=== PATIENT | female | born 1950 | race Caucasian/White ===

== ENCOUNTER → 2017-01-25 15:48 | Outpatient (CLI) | payer MEDICARE, SELFPAY | PROVIDERS: Visit Provider Family Medicine | DX: R69 Illness, unspecified (principal) | CPT/HCPCS: 82140 ==

== ENCOUNTER → 2017-09-22 12:42 | Outpatient (CLI) | payer MEDICARE, OTHER, SELFPAY ==
--- NOTE | 2017-09-23 05:57 | PFTCOMP_ITS ---
COMPLETE PULMONARY FUNCTION TEST INTERPRETATION Brief HPI: Patient is a 67 year old female, currently under the care of myself, who presents to [facility] for complete pulmonary function tests secondary to diagnosis of COPD. Respiratory therapist reports good effort and reproducible results, but difficulty secondary to coughing. Interpretation: Forced expiration spirometry shows a moderately-severe large airways obstructive ventilatory defect with an FEV1 of 52 % predicted. There is no significant bronchodilator response by ATS criteria. Spirograms are of good quality and plateau slowly, indicating slowly emptying areas of the lungs. The respiratory flow volume loop shows decreased expiratory flow rates at high lung volumes consistent with small airways obstruction. Lung volumes by body plethysmography show a decreased total lung capacity at 4.27 L, 75 % predicted. FRC and RV are elevated out of proportion. Lung volume measurements are consistent with air-trapping. Diffusion capacity by carbon monoxide is decreased at 40 % predicted. The airway resistance is elevated. Compared to previous pulmonary function tests from 02/11/2016, there has been a significant reduction in FEV1 and DLCO. Impression: Irreversible moderately severe mixed ventilatory defect with a symmetric reduction diffusing capacity. There has been worsening compared to previous study.
== END ==
PROVIDERS: Family Provider Family Medicine; PCP Family Medicine; Visit Provider Nurse Practitioner Acute Care
DX: J44.9 Chronic obstructive pulmonary disease, unspecified (principal)
CPT/HCPCS: 94060; 94726; 94729

== ENCOUNTER → 2017-10-06 11:40 | Outpatient (CLI) | payer MEDICARE, OTHER, SELFPAY | PROVIDERS: Family Provider Family Medicine; PCP Family Medicine; Visit Provider Internal Medicine Critical Care Medicine | DX: G47.33 Obstructive sleep apnea (adult) (pediatric) (principal); J44.9 Chronic obstructive pulmonary disease, unspecified | CPT/HCPCS: 94762 ==

== ENCOUNTER 2017-11-14 17:06 | Emergency (ER) | payer MEDICARE, OTHER, SELFPAY ==
[2017-11-14 17:07] VITALS: BP 110/66; PULSE 86; RESP 16; TEMP 36.8; O2SAT 98; BMI 19.6
--- NOTE | 2017-11-14 17:26 | ED.DCSUM_ITS ---
- ER Visit Summary Date of Service: 11/14/17 Chief Complaint: Headache History of Present Illness: The patient is a 67 F resents to the emergency department with headache. Patient has a history of migraine. She states normally, since the past few years, she does not get them very frequently. In fact, last when she had was just about a year ago. She describes this is her normal headache. She is prescription pressure behind her right eye into the back of her head. It is associated with photophobia and nausea. She denies any trauma. She denies any carbon monoxide exposure. She has tried some Tylenol at home with little relief. She is not on any migraine abortive medications at home. She denies any change in speech, change in vision, trouble with balance, or any other systemic symptoms. Physical Examination: Well-appearing patient is in no acute distress. Head is normocephalic, atraumatic. Pupils equal round reactive, extraocular muscles intact. There is no temporal artery tenderness. There is no vesicular rash. Neck supple. Kernig's and Brudzinski's are negative. Heart regular rate and rhythm. Lungs clear, chest nontender. Abdomen soft, nontender, nondistended. Neuro exam displays no focal or lateralizing deficit. 2+ symmetric lower extremity reflexes. No clonus. No ataxia or gait abnormality. Test Results: [] Emergency Department Course and Treatment: She presents with her normal migraine. She is not meningitic. Is not encephalopathic. She was treated with dihydroergotamine, Toradol, and Phenergan. Within an hour, she has had total resolution of her headache. At this time, I do feel that she is safe for outpatient therapy. The patient will be discharged home. Treatment Plan: [] Disposition: Charge Impression:. Migraine headache-resolved This note was generated with [employer] software. It may contain incorrect words, spelling, and punctuation that were not noted in review of the chart prior to signing ED Disposition - Plan for ED Patient: Disposition: Home or Assisted Living Chief Complaint: Headache Instructions: ED Headache Migraine Referrals: Vin Baca DO [Primary Care Provider] -
[2017-11-14] MEDS: 0.9% Normal Saline 1,000 ML 999 ML IV (17:59)
[2017-11-14] MEDS: Ketorolac 15 MG/ML Vial IV (17:59)
[2017-11-14] MEDS: proMETHazine 25 MG/ML Syringe 12.5 MG IV (17:59)
[2017-11-14] MEDS: Dihydroergotamine 1 MG/ML Ampul IM (17:59)
[2017-11-14 19:01] VITALS: PULSE 96; RESP 14; O2SAT 98
== END 2017-11-14 19:03 | disposition home or self-care (01) ==
LOC: ED 18:02
PROVIDERS: Emergency Provider Emergency Medicine; Family Provider Family Medicine; PCP Family Medicine
DX: G43.909 Migraine, unspecified, not intractable, without status migrainosus (principal); J44.9 Chronic obstructive pulmonary disease, unspecified; I10 Essential (primary) hypertension; E07.9 Disorder of thyroid, unspecified; Z87.891 Personal history of nicotine dependence; Z79.899 Other long term (current) drug therapy
CPT/HCPCS: 96374; 96375; 99282; J7030; A4216; J1110

== ENCOUNTER 2017-11-15 17:54 | Emergency (ER) | payer MEDICARE, OTHER, SELFPAY ==
[2017-11-15 17:54] VITALS: BP 117/60; PULSE 76; RESP 16; TEMP 36.9; O2SAT 98; BMI 19.6
[2017-11-15] MEDS: 0.9% Normal Saline 1,000 ML 999 ML IV (19:38)
[2017-11-15] MEDS: Ketorolac 30 MG/ML Syringe 15 MG IV (19:39)
[2017-11-15] MEDS: proMETHazine 25 MG/ML Syringe 12.5 MG IV (19:40)
[2017-11-15] MEDS: Dihydroergotamine 1 MG/ML Ampul IM (19:42)
[2017-11-15 20:36] VITALS: BP 158/80; PULSE 56; RESP 16; O2SAT 99
--- NOTE | 2017-11-15 20:43 | ED.VISSUMM ---
- ER Visit Summary Date of Service: 11/15/17 Chief Complaint: Headache History of Present Illness: The patient is a [address] Baca. She reports that she has a headache that began yesterday. Is gradually gotten worse. Is a throbbing pains 10 at 10 severity. Is worsened by light or movement. She reports that it was transient relieved by rizatriptan. She has had nausea without vomiting. She denies any recent trauma to her head. No fever or chills. Patient reports that she was seen in the emergency department yesterday was treated Toradol, DHE, and Phenergan. Had complete resolution of her headache. However, it returned this morning is gradually worsened throughout the day. Physical Examination: Vitals: Stable. Afebrile. General: Well-nourished and well-developed. Head: Normocephalic atraumatic. Neck: Supple, no lymphadenopathy. No JVD. Nontender. Cardiovascular: Regular rate and rhythm. No murmurs. Respiratory: No respiratory distress. Clear to auscultation bilaterally. Abdominal: Soft, nontender, nondistended, normal bowel sounds. No guarding, rebound, or peritoneal signs. Back: Nontender. Extremities: Nontender, no edema. Skin: Normal color, no rash. Neurologic: Alert and oriented ?3. Cranial nerves II through XII are intact. Normal strength and sensation. Psych: Normal affect. Emergency Department Course and Treatment: Patient was given DHE, Toradol, Phenergan, and dexamethasone. On repeat exam she reports her headache is completely resolved. Treatment Plan: Patient will be discharged instructions to follow-up with neurologist in 1-2 days if not improving. Disposition: To home in improved and stable condition. Impression: 1. Migraine headache. This note was generated with [employer] dictation software. It may contain incorrect words, spelling, and punctuation that were not noted in review of the chart prior to signing ED Disposition - Plan for ED Patient: Disposition: Home or Assisted Living Chief Complaint: Headache Instructions: ED Headache Migraine Referrals: Vin Baca DO [Primary Care Provider] - 1-2 Days if not improving
[2017-11-15 21:22] VITALS: BP 132/70; PULSE 68; RESP 14; O2SAT 99
== END 2017-11-15 22:41 | disposition home or self-care (01) ==
PROVIDERS: Emergency Provider Emergency Medicine; Family Provider Family Medicine; PCP Family Medicine
DX: G43.909 Migraine, unspecified, not intractable, without status migrainosus (principal); J44.9 Chronic obstructive pulmonary disease, unspecified; Z79.899 Other long term (current) drug therapy; Z86.73 Personal history of transient ischemic attack (TIA), and cerebral infarction without residual deficits; Z72.0 Tobacco use
CPT/HCPCS: 96361; 96372; 96374; 96375; 99282; J7030; A4216; J1110

== ENCOUNTER 2017-12-14 17:12 | Emergency (ER) | payer MEDICARE, OTHER, SELFPAY ==
[2017-12-14 17:12] VITALS: BP 124/58; PULSE 90; RESP 18; TEMP 36.7; O2SAT 98; BMI 20.3
--- NOTE | 2017-12-14 17:49 | ED.DCSUM_ITS ---
- ER Visit Summary Date of Service: 12/14/17 Chief Complaint: Headache History of Present Illness: The patient is a 67 F presenting with headache. She states it started gradually. Similar to her previous migraine headaches. She has nausea with no vomiting. No fever. She saw her neurologist yesterday and had her Depakote level checked. She was doing well at that time. Headache started today. She states that typically Toradol, DHE 45, Phenergan improve her symptoms. Physical Examination: Vitals are stable. Patient is afebrile. Alert no acute distress. HEENT exam is unremarkable. Neck is supple. No meningismus Lungs are clear and equal bilaterally. Heart is regular rate and rhythm. Abdomen is soft nontender nondistended. Extremities are unremarkable. Skin is warm and dry. No focal neurologic deficit. Remainder of exam is unremarkable. Emergency Department Course and Treatment: Patient is given Toradol, Phenergan, DHE 45. On reevaluation, patient is feeling much improved. She is requesting to go home. Advised to follow-up with her neurologist. Advised return to the ED for worsening complaints. Disposition: Discharge home Impression: Migraine headache This note was generated with [employer] dictation software. It may contain incorrect words, spelling, and punctuation that were not noted in review of the chart prior to signing ED Disposition - Plan for ED Patient: Chief Complaint: Headache Instructions: ED Headache Migraine Referrals: Vin Baca DO [Primary Care Provider] -
[2017-12-14] MEDS: 0.9% Normal Saline 1,000 ML 999 ML IV (18:12)
[2017-12-14] MEDS: Dihydroergotamine 1 MG/ML Ampul IV (18:12)
[2017-12-14] MEDS: Ketorolac 30 MG/ML Syringe IV (18:12)
[2017-12-14] MEDS: proMETHazine 25 MG/ML Syringe 6.25 MG IV (18:12)
--- NOTE | 2017-12-14 18:51 | ED.DEP ---
ED Disposition - Plan for ED Patient: Chief Complaint: Headache Instructions: ED Headache Migraine Referrals: Vin Baca DO [Primary Care Provider] -
[2017-12-14 18:59] VITALS: BP 105/73; PULSE 64; RESP 16; O2SAT 98
--- NOTE | 2017-12-14 19:10 | NURSING ---
RIGHT CHEST PORT DISCONTINUED AND FLUSHED PRIOR WITH 5 CC'S HEPARIN AND 10 CC'S NS. CLEAN GAUZE APPLIED TO SITE.
== END 2017-12-14 19:11 | disposition home or self-care (01) ==
LOC: ED 17:32
PROVIDERS: Emergency Provider Emergency Medicine; Family Provider Family Medicine; PCP Family Medicine
DX: G43.909 Migraine, unspecified, not intractable, without status migrainosus (principal); J44.9 Chronic obstructive pulmonary disease, unspecified; Z86.73 Personal history of transient ischemic attack (TIA), and cerebral infarction without residual deficits; Z79.899 Other long term (current) drug therapy; Z72.0 Tobacco use
CPT/HCPCS: 96361; 96374; 96375; 99282; J7030; A4216; J1110

== ENCOUNTER 2018-02-05 17:19 | Emergency (ER) | payer MEDICARE, OTHER, SELFPAY ==
[2018-02-05 17:21] VITALS: BP 139/89; PULSE 110; RESP 16; TEMP 36.6; BMI 21.3
[2018-02-05] MEDS: proMETHazine 25 MG/ML Syringe 12.5 MG IV (18:35)
[2018-02-05] MEDS: 0.9% Normal Saline 1,000 ML 999 ML IV (18:35)
[2018-02-05] MEDS: Ketorolac 30 MG/ML Syringe IV (18:35)
[2018-02-05] MEDS: Dihydroergotamine 1 MG/ML Ampul IV (19:22)
[2018-02-05 19:41] VITALS: PULSE 113; RESP 16
[2018-02-05] MEDS: Ipratropium/Albuterol Sulfate 3 ML AMPUL.NEB INHALATION (19:41)
--- NOTE | 2018-02-05 20:02 | ED.VISSUMM ---
- ER Visit Summary Date of Service: 02/05/18 Chief Complaint: Migraine History of Present Illness: The patient is a 68 F who presents with a migraine. She has a history of multiple similar prior episodes. She complains of a left-sided temporal headache which she currently rates as 7 out of 10. This is typical in character and location to her previous headaches. She also complains of nausea. It began about 5 hours prior to presentation and gradually worsened over the course of a couple of hours. Physical Examination: Afebrile vitals notable for heart rate 110 otherwise normal Heart regular rhythm tachycardia Scattered wheezing Abdomen soft Alert oriented no focal or lateralizing neurological deficits Test Results: Not indicated Emergency Department Course and Treatment: Patient states that normally she has had resolution of symptoms with Toradol Phenergan and DHE. I was somewhat concerned given her prior history of stroke with DHE. However the patient states that she has had this multiple times since her stroke without any adverse events. Patient was treated with Toradol Phenergan and DHE with complete resolution of symptoms and states I feel great on reevaluation. Patient discharged. Treatment Plan: [] Disposition: Discharge Impression: Migraine This note was generated with [employer] dictation software. It may contain incorrect words, spelling, and punctuation that were not noted in review of the chart prior to signing ED Disposition - Plan for ED Patient: Chief Complaint: Headache Referrals: Vin Baca DO [Primary Care Provider] -
--- NOTE | 2018-02-05 20:05 | ED.DEP ---
ED Disposition - Plan for ED Patient: Chief Complaint: Headache Instructions: ED Headache Migraine Referrals: Vin Baca DO [Primary Care Provider] -
[2018-02-05 20:22] VITALS: BP 155/75; PULSE 73; RESP 16; RESP 166; O2SAT 97
== END 2018-02-05 20:23 | disposition home or self-care (01) ==
LOC: ED 18:33
PROVIDERS: Emergency Provider Emergency Medicine; Family Provider Family Medicine; PCP Family Medicine
DX: G43.909 Migraine, unspecified, not intractable, without status migrainosus (principal); J44.9 Chronic obstructive pulmonary disease, unspecified; J84.10 Pulmonary fibrosis, unspecified; I10 Essential (primary) hypertension; E03.9 Hypothyroidism, unspecified; Z86.73 Personal history of transient ischemic attack (TIA), and cerebral infarction without residual deficits; Z79.899 Other long term (current) drug therapy; Z72.0 Tobacco use
CPT/HCPCS: 36591; 94640; 96361; 96374; 96375; 99282; J7030; A4216; J1110

== ENCOUNTER 2018-03-30 17:52 | Emergency (ER) | payer MEDICARE, OTHER, SELFPAY ==
[2018-03-30 17:54] VITALS: BP 115/66; PULSE 101; RESP 16; TEMP 36.2; O2SAT 97; BMI 19.9
--- NOTE | 2018-03-30 18:09 | ED.VISSUMM ---
- ER Visit Summary Date of Service: 03/30/18 Chief Complaint: Migraine History of Present Illness: The patient is a 68 F with multiple comorbidities who presents to the emergency department with migraine and nausea. The patient has a history of chronic migraine. She states she gets flares almost once a month. She states that this is her normal migraine. It started gradually behind her right eye with photophobia and nausea. She has not vomited. She states this is a normal headache that she gets. The patient does have multiple comorbidities including prior stroke, press syndrome, and pulmonary fibrosis. She denies any trauma. She denies any visual change. She is otherwise been in her normal state of health. Physical Examination: Well-appearing patient is in no acute distress. Head is normocephalic, atraumatic. Pupils equal round reactive, extraocular muscles intact. There is no temporal artery tenderness. There is no vesicular rash. Neck supple. Kernig's and Brudzinski's are negative. Heart regular rate and rhythm. Lungs clear, chest nontender. Abdomen soft, nontender, nondistended. Neuro exam displays no focal or lateralizing deficit. 2+ symmetric lower extremity reflexes. No clonus. No ataxia or gait abnormality. Test Results: [] Emergency Department Course and Treatment: The patient presents with a normal migraine. She is not meningitic. Is not encephalopathic. She has a normal neurologic examination. The patient was given DHE, Toradol, and Phenergan. Within 30 minutes, she had total resolution of her headache. Her exam continues to be unremarkable. At this time, I do feel that she is safe for outpatient therapy. The patient will be discharged home. Treatment Plan: [] Disposition: Discharge Impression: Migraine This note was generated with [employer] dictation software. It may contain incorrect words, spelling, and punctuation that were not noted in review of the chart prior to signing ED Disposition - Plan for ED Patient: Chief Complaint: Headache Instructions: ED Headache Migraine Referrals: Vin Baca DO [Primary Care Provider] -
[2018-03-30] MEDS: Dihydroergotamine 1 MG/ML Ampul IV (18:25)
[2018-03-30] MEDS: 0.9% Normal Saline 1,000 ML 1000 ML IV (18:25)
[2018-03-30] MEDS: Ketorolac 15 MG/ML Vial IV (18:25)
[2018-03-30] MEDS: proMETHazine 25 MG/ML Syringe 12.5 MG IV (18:25)
== END 2018-03-30 20:03 | disposition home or self-care (01) ==
LOC: ED 18:09
PROVIDERS: Emergency Provider Emergency Medicine; Family Provider Family Medicine; PCP Family Medicine
DX: G43.909 Migraine, unspecified, not intractable, without status migrainosus (principal); I67.83 Posterior reversible encephalopathy syndrome; J84.10 Pulmonary fibrosis, unspecified; J44.9 Chronic obstructive pulmonary disease, unspecified; Z79.899 Other long term (current) drug therapy; Z72.0 Tobacco use; Z86.73 Personal history of transient ischemic attack (TIA), and cerebral infarction without residual deficits
CPT/HCPCS: 96361; 96374; 96375; 99281; J7030; A4216; J1110

== ENCOUNTER 2018-05-16 16:58 | Emergency (ER) | payer MEDICARE, OTHER, SELFPAY ==
[2018-05-16 16:58] VITALS: BP 158/89; PULSE 86; RESP 16; TEMP 36.7; O2SAT 98; BMI 22.8
--- NOTE | 2018-05-16 17:26 | CT_ITS ---
STUDY: CT BRAIN WITHOUT CONTRAST REASON FOR EXAM: Female, 68 years old. Confusion. RADIATION DOSAGE (If Supplied By Facility): CTDIvol = ( 44.99 ) mGy, DLP = ( 796.11 ) mGycm TECHNIQUE: Transaxial CT imaging of the brain was performed without administration of intravenous contrast material. Individualized dose optimization techniques were used for this CT. COMPARISON: 10/26/2016 FINDINGS: There are stable postsurgical changes from a left mastoidectomy. Again noted is a left-sided cochlear implant. The streak artifact from the hardware limits evaluation. There is an old right parietal infarct which is new when compared with the prior exam. There is no acute bleed or infarct identified. There are chronic ischemic and atrophic changes. The ventricles are normal in configuration. There is no hydrocephalus. The visualized paranasal sinuses are clear. There is no skull fracture. CT/Brain/Head without Contrast IMPRESSION: Study limited by streak artifact due to the patient's left cochlear implant. Old right parietal infarct which is new when compared with 10/26/2016. No acute intracranial abnormality identified. Stable chronic ischemic changes. Electronically Signed: Erik Howard, at 18:37 EST Tel , Service support ,
--- NOTE | 2018-05-16 17:27 | RAD_ITS ---
STUDY: X-RAY CHEST REASON FOR EXAM: Female, 68 years old. Dizziness TECHNIQUE: Frontal and lateral views of the chest COMPARISON: 10/24/2016 FINDINGS: There is a right-sided port with its tip in the superior vena cava. The lungs are clear. There are no pleural effusions. There is no pneumothorax. The heart is normal in size. The visualized osseous structures are within normal limits. RAD/Chest PA and Lateral IMPRESSION: No acute thoracic pathology. Electronically Signed: Erik Howard, at 19:03 EST Tel , Service support ,
--- NOTE | 2018-05-16 17:28 | EKG12_ITS ---
Test Reason : CONFUSION Blood Pressure : / mmHG Vent. Rate : 080 BPM Atrial Rate : 080 BPM P-R Int : 140 ms QRS Dur : 076 ms QT Int : 374 ms P-R-T Axes : 063 023 061 degrees QTc Int : 431 ms Normal sinus rhythm Normal ECG Confirmed by SUNIL YEUNG, MORTEZA ([id number]), web content editor BENTLEY VARELA ([id number]) on 05/19/2018 2:19:07 PM Referred By: KINGSLEY Confirmed By:MORTEZA BARBER MD
[2018-05-16 17:40] LABS: Base Excess 0 mmol/L (-2 to +2); Bicarbonate 23.4 mmol/L (22-26); Blood Gas Specimen Type ART; O2 Delivery Device Room Air; PO2 76 mmHG (75-100); SITE L Brachial; SO2 96 % (95-99); Time Given 1736; Total Carbon Dioxide 24 mmol/L; pCO2 32.9 mmHg (35-45); pH 7.46 (7.35-7.45)
[2018-05-16 18:01] LABS: Absolute Lymphocyte Count 1.24 X10^3/ul (0.83-4.51); Absolute Neutrophil Count 5.8 X10^3/uL (2.0-7.7); Basophil# 0.03 X10^3/uL; Basophil% 0.4 % (0-1); Eosinophil# 0.15 X10^3/uL; Eosinophils% 1.9 % (0-5); Hemoglobin 12.4 g/dl (12.0-15.0); Lymphocyte # 1.24 X10^3/ul (4.0); Lymphocyte % 16.1 % (19-41); Mean Corp Hgb Conc 32.6 g/gl (32-36); Mean Corpuscular Hgb 31.5 pg (27.0-32.0); Mean Corpuscular Volume 96.4 fL (81-99); Mean Platelet Vol. 9.5 fl (6.2-12.0); Monocyte# 0.39 X10^3/uL; Monocyte% 5.1 % (0-10); Neutrophil # 5.84 X10^3/uL (2.7-7.7); Neutrophil % 75.7 % (47-70); Platelet Count 201 K/mm3 (150-450); RBC Distribution Width CV 13.7 % (11.6-14.6); RBC Distribution Width SD 48.8 fl (35.1-43.9); Red Blood Count 3.94 M/mm3 (4.2-5.4); White Blood Count 7.7 K/mm3 (4.4-11.0)
[2018-05-16 18:05] LABS: POSITIVE COUNT NO; POSITIVE DIFFERENTIAL NO; POSITIVE MORPHOLOGY NO
[2018-05-16 18:19] LABS: ALB/GLOB Ratio 0.9 RATIO (0.9-2.4); AST(SGOT) 11 U/L (15-37); Alanine Aminotransfer ALT/SGPT 15 U/L (13-56); Albumin, Serum 3.2 g/dL (3.2-5.0); Alkaline Phosphatase 84 U/L (45-117); Anion Gap 7 (5-15); BUN 11 mg/dL (7-18); BUN/Creat Ratio 15.7 RATIO (10-20); Calcium,Total 7.9 mg/dL (8.5-10.1); Chloride 102 mmol/L (98-107); EST Glomerular Filtration Rate 89 mL/min (>60); Est Glom Filt Rate - Afr Amer 108 mL/min (>60); Estimated Creatinine Clearance 55.82 ml/min; Globulin 3.6 g/dL (2.2-4.2); Glucose 74 mg/dL (74-106); Potassium 3.9 mmol/L (3.5-5.1); Protein, Total 6.8 g/dL (6.4-8.2); Sodium Level 132 mmol/L (136-145)
[2018-05-16 18:58] VITALS: BP 156/73; PULSE 87; RESP 24; O2SAT 98
[2018-05-16 19:16] LABS: Bacteria 0 SEEN /hpf (None Seen); Mucous, Urine 0 SEEN /hpf (<or=2+); Red Blood Cells-Urine 0 SEEN /hpf (0-5); White Blood Cells 0 SEEN /hpf (0-5)
[2018-05-16 19:22] LABS: Color, Urine Yellow (Yellow); Glucose, Dipstick Normal (Normal); Ketone-Dipstick Negative (Negative); Leukocyte Esterase-Dipstick Negative /ul (Negative); Nitrite-Dipstick Negative (Negative); Occult Blood-Urine Negative /ul (Negative); Protein-Dipstick Negative (Negative); Urine Bilirubin Dipstick Negative (Negative); Urine Clarity Clear (Clear); Urine Urobilinogen Normal (Normal)
[2018-05-16 19:33] LABS: Squamous Epithelial Cells - UA 0-5 SEEN /hpf (5-10)
[2018-05-16 20:10] VITALS: BP 147/79; PULSE 77; RESP 24; O2SAT 97
--- NOTE | 2018-05-16 20:23 | HP.PCM_ITS ---
History of Present Illness The patient is a 68 year old F [] Past Medical History Past Medical History (Chronic Problems): Chronic Problems (Last Reviewed 04/13/18 @ 06:39 by Afua Friedman) Tobacco abuse (Chronic) RENNY (obstructive sleep apnea) (Chronic) Mild diastolic dysfunction (Chronic) Depression (Chronic) Restless leg (Chronic) HTN (hypertension) (Chronic) Presbycusis of both ears (Chronic) Adrenal insufficiency (Chronic) COPD (chronic obstructive pulmonary disease) (Chronic) Hypothyroidism (Chronic) Pulmonary fibrosis (Chronic) Medical History: Medical History (Last Reviewed 04/13/18 @ 06:39 by Afua Friedman) Encephalopathy (Acute) G93.40 Leukocytosis (Acute) D72.829 Hypotension (Acute) I95.9 Decreased level of consciousness (Acute) R40.4 Respiratory failure with hypercapnia (Acute) J96.92 MRSA pneumonia (Acute) J15.212 Acute delirium (Acute) R41.0 Headache (Acute) R51 RENNY (obstructive sleep apnea) (Chronic) G47.33 Mild diastolic dysfunction (Chronic) I51.9 Depression (Chronic) F32.9 Restless leg (Chronic) HTN (hypertension) (Chronic) I10 Presbycusis of both ears (Chronic) H91.13 Adrenal insufficiency (Chronic) E27.40 COPD (chronic obstructive pulmonary disease) (Chronic) J44.9 Hypothyroidism (Chronic) E03.9 Pulmonary fibrosis (Chronic) J84.10 COPD with acute exacerbation J44.1 Gallstones K80.20 Septic shock A41.9, R65.21 UTI (urinary tract infection) N39.0 Anxiety F41.9 Bronchitis J40 Carpal tunnel syndrome G56.00 Cataract H26.9 Chronic back pain M54.9, G89.29 Migraine G43.909 Osteopenia M85.80 Solitary pulmonary nodule R91.1 Stage 2 moderate COPD by GOLD classification J44.9 Tobacco abuse Z72.0 Acute respiratory failure J96.00 H/O: hysterectomy Z98.890, Z90.710 Hypersomnia G47.10 Allergies Sulfa (Sulfonamide Antibiotics) Adverse Reaction (Intermediate, Verified 05/16/18 17:01) Other - Messes with blood counts prochlorperazine edisylate [From Compazine] Adverse Reaction (Mild, Verified 05/16/18 17:01) Other - Restless legs prochlorperazine maleate [From Compazine] Adverse Reaction (Mild, Verified 05/16/18 17:01) Other - Restless legs Home Medications: Ambulatory Orders Medication Instructions Recorded Pantoprazole Sodium [Protonix] 40 mg PO DAILY 08/23/16 albuterol sulfate HFA 90 2 puff INHALATION Q4H PRN g 06/16/17 mcg/actuation aerosol inhaler ipratropium-albuterol 0.5 mg-3 3 ml INHALATION Q4H PRN ml 06/16/17 mg(2.5 mg base)/3 mL nebulization soln budesonide-formoterol HFA 160 2 inh INHALATION Q12H #10.2 g 09/28/17 mcg-4.5 mcg/actuation aerosol inhaler Cyclobenzaprine [Flexeril] 10 mg PO TID PRN PRN 12/14/17 Divalproex Sodium [Depakote] 250 mg PO DAILY 12/14/17 Risperidone [Risperdal] 0.5 mg PO DAILY 12/14/17 Risperidone [Risperdal] 1 mg PO QHS 12/14/17 Ropinirole HCl [Requip] 0.5 mg PO QHS 12/14/17 Sertraline HCl [Zoloft] 50 mg PO DAILY 12/14/17 melatonin 10 mg capsule 20 mg PO QHS 12/29/17 Rizatriptan Benzoate [Maxalt] 10 mg PO .X1 PRN PRN 02/05/18 tiotropium bromide 2.5 2 puff INHALATION DAILY #4 g 04/13/18 mcg/actuation mist for inhalation Aspirin/Acetaminophen/Caffeine 2 tab PO PRN PRN 05/16/18 [Excedrin Migraine Caplet] Divalproex Sodium 500 mg PO DAILY 05/16/18 Levothyroxine Sodium [Synthroid] 150 mcg PO DAILY 05/16/18 Multivit-Min/Iron/Folic/Lutein 1 tab PO DAILY 05/16/18 [Centrum Silver Women Tablet] Naproxen Sodium [Aleve] 220 mg PO PRN PRN 05/16/18 Surgical History: Surgical History (Last Reviewed 04/13/18 @ 06:39 by Afua Friedman) Cochlear implant in place Z96.21 Dr Andrade 2014 H/O adenoidectomy Z98.890, Z90.89 History of cataract surgery Z98.49 History of cholecystectomy Z98.890, Z90.49 History of lung biopsy Z98.890 Hx of appendectomy Z98.890, Z90.49 Hx of left knee surgery Z98.890 joint lipoma removal vocal nodules removed Surgical History: appendectomy, cholecystectomy, hysterectomy, total hip arthroplasty - Right, - - thyroidectomy and BL intraocular lens implants,cochear implant Psychiatric History: Anxiety, Depression, - - Suspected narcotic dependence. HUMAN RESOURCE ADVISER History: No pertinent HUMAN RESOURCE ADVISER history Smoking Status: Current every day smoker - *Family History Maternal Family History: Family History (Last Reviewed 04/13/18 @ 06:39 by Afua Friedman) Mother Hypertension CVA (cerebral vascular accident) Father CVA (cerebral vascular accident) Hypertension Sister Colon cancer Grandfather Hypertension Heart disease History Items: Heart Disease, Stroke Paternal Family History: Family History (Last Reviewed 04/13/18 @ 06:39 by Afua Friedman) Mother Hypertension CVA (cerebral vascular accident) Father CVA (cerebral vascular accident) Hypertension Sister Colon cancer Grandfather Hypertension Heart disease History Items: Heart Disease, Stroke Sibling Family History: Family History (Last Reviewed 04/13/18 @ 06:39 by Afua Friedman) Mother Hypertension CVA (cerebral vascular accident) Father CVA (cerebral vascular accident) Hypertension Sister Colon cancer Grandfather Hypertension Heart disease History Items: - - sister with colon cancer - Physical Exam Vital Signs Temp Pulse Resp BP Pulse Ox 98.1 F 77 24 H 147/79 H 97 05/16/18 16:58 05/16/18 20:10 05/16/18 20:10 05/16/18 20:10 05/16/18 20:10 Oxygen Delivery Method Room Air Weight: 68.3 kg Body Mass Index (BMI) 22.8 Finger Stick Blood Glucose 108 Laboratory Tests Past 24 Hrs 05/16/18 05/16/18 05/16/18 17:37 17:45 17:45 WBC 7.7 RBC 3.94 L Hgb 12.4 Hct 38.0 MCV 96.4 MCH 31.5 MCHC 32.6 RDW 13.7 RDW Differential 48.8 H Plt Count 201 MPV 9.5 Immature Gran % (Auto) 0.800 Neut % (Auto) 75.7 H Lymph % (Auto) 16.1 L Lamb % (Auto) 5.1 Eos % (Auto) 1.9 Baso % (Auto) 0.4 Absolute Neuts (auto) 5.8 Absolute Lymphs (auto) 1.24 Total Counted Not Reportable Specimen Type ART Sample Site L Brachial pH 7.46 H Bicarbonate Actual 23.4 POC Total CO2 24 Base Excess 0 O2 Saturation 96 ABG pCO2 32.9 L ABG pO2 76 O2 Delivery Device Room Air Blood Gas Notified Whom ED MD Blood Gas Notified Time 1736 Sodium 132 L Potassium 3.9 Chloride 102 Carbon Dioxide 23.0 Anion Gap 7 BUN 11 Creatinine 0.70 Estim Creat Clear Calc 55.82 Est GFR (MDRD) Af Amer 108 Est GFR (MDRD) Non-Af 89 BUN/Creatinine Ratio 15.7 Glucose 74 Calcium 7.9 L Total Bilirubin 0.20 AST 11 L ALT 15 Alkaline Phosphatase 84 Troponin I < 0.015 Total Protein 6.8 Albumin 3.2 Globulin 3.6 Albumin/Globulin Ratio 0.9 Urine Color Urine Clarity Urine pH Ur Specific [place] Urine Protein Urine Glucose (UA) Urine Ketones Urine Occult Blood Urine Nitrite Urine Bilirubin Urine Urobilinogen Ur Leukocyte Esterase Urine RBC Urine WBC Ur Squamous Epith Cells Urine Bacteria Urine Mucus 05/16/18 19:10 WBC RBC Hgb Hct MCV MCH MCHC RDW RDW Differential Plt Count MPV Immature Gran % (Auto) Neut % (Auto) Lymph % (Auto) Lamb % (Auto) Eos % (Auto) Baso % (Auto) Absolute Neuts (auto) Absolute Lymphs (auto) Total Counted Specimen Type Sample Site pH Bicarbonate Actual POC Total CO2 Base Excess O2 Saturation ABG pCO2 ABG pO2 O2 Delivery Device Blood Gas Notified Whom Blood Gas Notified Time Sodium Potassium Chloride Carbon Dioxide Anion Gap BUN Creatinine Estim Creat Clear Calc Est GFR (MDRD) Af Amer Est GFR (MDRD) Non-Af BUN/Creatinine Ratio Glucose Calcium Total Bilirubin AST ALT Alkaline Phosphatase Troponin I Total Protein Albumin Globulin Albumin/Globulin Ratio Urine Color Yellow Urine Clarity Clear Urine pH 8.0 Ur Specific [place] 1.010 Urine Protein Negative Urine Glucose (UA) Normal Urine Ketones Negative Urine Occult Blood Negative Urine Nitrite Negative Urine Bilirubin Negative Urine Urobilinogen Normal Ur Leukocyte Esterase Negative Urine RBC 0 SEEN Urine WBC 0 SEEN Ur Squamous Epith Cells 0-5 SEEN Urine Bacteria 0 SEEN Urine Mucus 0 SEEN Assessment/Plan All Active Problems (Last Reviewed 04/13/18 @ 06:39 by Afua Friedman) Encephalopathy (Acute) Leukocytosis (Acute) Hypotension (Acute) Decreased level of consciousness (Acute) Respiratory failure with hypercapnia (Acute) MRSA pneumonia (Acute) Acute delirium (Acute) Headache (Acute) Gram-negative pneumonia (Resolved) Septic shock (Resolved) Tobacco user (Resolved)
[2018-05-16 21:04] VITALS: BP 123/86; PULSE 76; RESP 22; O2SAT 98
--- NOTE | 2018-05-16 21:05 | ED.VISSUMM ---
- ER Visit Summary Date of Service: 05/16/18 Chief Complaint: Confusion History of Present Illness: The patient is a 68 F who lives at home with family. Patient has COPD and pulmonary fibrosis and she has had prior stroke. Primary care physician is Dr. Baca. Corporate Administrator is Dr. Diallo. Patient was discharged from [facility] earlier this year. She has been at home. states she was recently hospitalized in [place] for hypercarbia. On Tuesday she fell and she fell again today. notes confusion. He notes that she basically can get to the wheelchair and he has to help her. She does not really ambulate on her own. During one fall she did hit her head and has numerous bruising of her extremities. She continues to smoke. Physical Examination: Afebrile vital signs are stable Gen: Well-nourished well-developed Head: Normocephalic atraumatic Eyes: Perrl EOMI ENT: TMs clear no rhinorrhea moist mucous membranes Neck: Supple no lymphadenopathy no JVD nontender CVS: Regular rate rhythm no murmurs normal S1-S2 Respiratory: No distress faint expiratory wheeze chest nontender Abdomen: Soft nontender nondistended normal bowel sounds no masses Back: Nontender Extremity: Nontender no edema Skin: Normal color no rash Neuro: alert orientated ?3 CN II-XII intact normal strength sensation reflexes the patient does seem confused often this speaking and mixing up events/timelines and people. Psych: Normal affect normal mood Test Results: CBC CMP showed a sodium of 132. Troponin negative. ABG showed a normal pH at 7.46. PCO2 of 32.9. Chest x-ray and head CT were negative. EKG sinus at a rate of 80. Urinalysis shows no infection Emergency Department Course and Treatment: The patient results were discussed with her and her . He states that if she is to be admitted to observation he would rather take her home and bring her back if she gets worse. This is a financial decision because he states he still pain off the last observational stay. I did speak with our hospitalist and had him evaluate he does confirm that this would be a observational stay tonight. Therefore family wishes to take her home. Impression: 1. Altered mental status This note was generated with [employer] software. It may contain incorrect words, spelling, and punctuation that were not noted in review of the chart prior to signing ED Disposition - Plan for ED Patient: Disposition: Against Medical Advice Chief Complaint: Dizziness Instructions: ED Confusion Referrals: Vin Baca DO [Primary Care Provider] - As soon as possible
--- OUTSIDE RECORDS SUMMARY | 2018-07-12 09:35 | XMS RPT_ITS ---
:1950 Author Organization OHIP Support Name Relationship Address Phone EVGENY HERNANDEZ Unavailable [address] + [place] [address] R Unavailable Unavailable Unavailable LAX, EVGENY Unavailable [address] + [place] [address] R Unavailable Unavailable Unavailable LAX, EVGENY Unavailable [address] + [place] [address] R Unavailable Unavailable Unavailable LAX, EVGENY Unavailable [address] + [place] [address] LAX, EVGENY Unavailable [address] + [place] [address] LAX, EVGENY Unavailable [address] + [place] [address] R Unavailable Unavailable Unavailable LAX, EVGENY Unavailable [address] + [place] [address] LAX, EVGENY Unavailable [address] + [place] [address] LAX, EVGENY Unavailable [address] + [place] [address] R Unavailable Unavailable Unavailable LAX, EVGENY Unavailable [address] + [place] [address] R Unavailable Unavailable Unavailable LAX, EVGENY Unavailable [address] + [place] [address] LAX, EVGENY Unavailable [address] + [place] [address] LAX, EVGENY Unavailable [address] + [place] [address] LAX, EVGENY Unavailable [address] + [place] [address] LAX, EVGENY Unavailable [address] + [place] [address] LAX, EVGENY Unavailable [address] + [place] [address] LAX, EVGENY Unavailable [address] + [place] [address] R Unavailable Unavailable Unavailable LAX, EVGENY Unavailable [address] + [place] [address] R Unavailable Unavailable Unavailable LAX, EVGENY Unavailable [address] + [place] [address] LAX, EVGENY Unavailable [address] + [place] [address] LAX, EVGENY Unavailable [address] + [place] [address] LAX, EVGENY Unavailable [address] + [place] [address] LAX, EVGENY Unavailable [address] + [place] [address] LAX, EVGENY Unavailable [address] + [place] [address] LAX, EVGENY Unavailable [address] [phone] [place] [address] R Unavailable Unavailable Unavailable LAX, EVGENY Unavailable [address] [phone] [place] [address] R Unavailable Unavailable Unavailable LAX, EVGENY Unavailable [address] + [place] [address] LAX, EVGENY Unavailable [address] + [place] [address] LAX, EVGENY Unavailable [address] + [place] [address] LAX, EVGENY Unavailable [address] + [place] [address] LAX, EVGENY Unavailable [address] + [place] [address] LAX, EVGENY Unavailable [address] + [place] [address] LAX, EVGENY Unavailable [address] [phone] [place] [address] R Unavailable Unavailable Unavailable LAX, EVGENY Unavailable [address] [phone] [place] [address] R Unavailable Unavailable Unavailable LAX, EVGENY Unavailable [address] + [place] [address] LAX, EVGENY Unavailable [address] + [place] [address] LAX, EVGENY Unavailable [address] [phone] [place] [address] R Unavailable Unavailable Unavailable LAX, EVGENY Unavailable [address] [phone] [place] [address] R Unavailable Unavailable Unavailable LAX, EVGENY Unavailable [address] + [place] [address] LAX, EVGENY Unavailable [address] + [place] [address] LAX, EVGENY Unavailable [address] + [place] [address] LAX, AMBAR Unavailable [address] + [place] [address] R Unavailable Unavailable Unavailable Care Team Providers Name Role Phone DONOVAN AVILA MD Attending Unavailable PHUONG DO, VIN D Primary Care Unavailable DONOVAN AVILA MD Attending Unavailable PHUONG DO, VIN D Primary Care Unavailable DONOVAN AVILA MD Attending Unavailable PHUONG DO, VIN D Primary Care Unavailable CARLY GARRIDO MD Attending Unavailable PHUONG DO, VIN D Primary Care Unavailable PHUONG DO, VIN D Primary Care Unavailable LISA FRANCE MD. KARLI Gaspar Admitting Unavailable LISA FRANCE MD. KARLI Gaspar Attending Unavailable PHUONG DO, VIN D Primary Care Unavailable EDGAR FRANCE, DR. Antonieta LOTT Attending Unavailable VIN NOE MD Attending Unavailable PHUONG DO, VIN D Primary Care Unavailable VIN NOE MD Attending Unavailable PHUONG DO, VIN D Primary Care Unavailable DONOVAN AVILA MD Attending Unavailable PHUONG DO, VIN D Primary Care Unavailable DONOVAN AVILA MD Attending Unavailable PHUONG DO, VIN D Primary Care Unavailable DONOVAN AVILA MD Attending Unavailable PHUONG DO, VIN D Primary Care Unavailable PHUONG DO, VIN D Primary Care Unavailable LISA FRANCE MD. KARLI Gaspar Admitting Unavailable LISA FRANCE MD. KARLI Gaspar Attending Unavailable HELGA YEUNG, AMBAR Gaspar Consulting Unavailable LISA FRANCE MD. KARLI Gaspar Consulting Unavailable HELGA YEUNG, AMBAR Gaspar Admitting Unavailable HELGA YEUNG, AMBAR Gaspar Attending Unavailable PHUONG DO, VIN D Primary Care Unavailable PHUONG DO, VIN D Consulting Unavailable ANNE MARIE EDDY, DR. LUIS F Martin Consulting Unavailable YOVANY YEUNG, ELVIE Consulting Unavailable VINI YEUNG, GLADIS Consulting Unavailable HELAG YEUNG, AMBAR Gaspar Consulting Unavailable Ana, Faye Attending Unavailable Happy, Vin Referring Unavailable Ana, Faye Attending Unavailable Perez, Faye Referring Unavailable Phuong, Vin Primary Care Unavailable Gerry Diallo Attending Unavailable Happy, Vin Referring Unavailable Happy, Vin Primary Care Unavailable Gerry Diallo Attending Unavailable Ana, Faye Referring Unavailable Gerry Diallo Attending Unavailable Happy, Vin Primary Care Unavailable Phuong, Vin Primary Care Unavailable Josh Bermudez Attending Unavailable Happy, Vin Primary Care Unavailable Marin Kraft Attending Unavailable DOCTOR, OUT OF TOWN Attending Unavailable Phuong, Vin Primary Care Unavailable Kassie Guzmán Attending Unavailable Faye Perez Attending Unavailable Happy, Vin Referring Unavailable Phuong, Vin Primary Care Unavailable Phuong, Vin Primary Care Unavailable Harshad Connors Attending Unavailable Happy, Vin Attending Unavailable Phuong, Vin Referring Unavailable Happy, Vin Primary Care Unavailable Phuong, Vin Primary Care Unavailable Josh Bermudez Attending Unavailable Gerry Diallo Attending Unavailable Phuong, Vin Referring Unavailable Phuong, Vin Primary Care Unavailable Chato Allen Attending Unavailable PROBLEMS PROBLEMS DATE TYPE CONDITION / CODE ATTENDING STATUS SOURCE 04/13/2018 Unknown J44.9 - Chronic Yoel, Gerry [facility] disease, Repository unspecified / J44.9(ICD-10) 04/13/2018 Unknown J96.22 - Acute Yoel, Gerry [facility] failure with Repository hypercapnia / J96.22(ICD-10) 10/06/2017 Unknown G47.33 - Yoel, Gerry [facility] ap[facility] (pediatric) / Repository G47.33(ICD-10) PROCEDURES PROCEDURES No Procedure Records FoundRESULTS RESULTS 12 LEAD ELECTROCARDIOGRAM Observed: 05/19/2018 Status: F Source: GERRY 2:19 PM [facility] RE[facility] Cardiovascular Services [address] [place] [address] 12 Lead EKG 05/16/18 1748 MR#: [id number] Acct: [id number] Name: FRANCISCO HERNANDEZ Rep #: [id number] : 1950 68 From: Aristides Cohen MD Attending Dr: Status: DEP ER Ordering Dr: Chato Allen DO Date: 05/16/18 Location: ED Sex: F C Admitted: Test Reason : CONFUSION Blood Pressure : / mmHG Vent. Rate : 080 BPM Atrial Rate : 080 BPM P-R Int : 140 ms QRS Dur : 076 ms QT Int : 374 ms P-R-T Axes : 063 023 061 degrees QTc Int : 431 ms Normal sinus rhythm Normal ECG Confirmed by ARISTIDES COHEN MD ([id number]), editorial director BENTLEY VARELA ([id number]) on 05/19/2018 2:19:07 PM Referred By: KINGSLEY Confirmed By:ARISTIDES COHEN MD 05/19/18 1419 Date Aristides Cohen MD CC: Vin Baca DO; Chato Allen DO Signed EMERGENCY DEPARTMENT Observed: 05/18/2018 Status: F Source: GERRY SUMMARY 8:16 AM [facility] Medical Records Department [address] [place] [address] Emergency Department Summary 05/16/18 2105 MR#: [id number] Acct: [id number] Name: FRANCISCO HERNANDEZ Rep #: [id number] : 1950 68 From: Chato Allen DO PCP: Vin Baca DO Status: DEP ER - ER Visit Summary Date of Service: 05/16/18 Chief Complaint: Confusion History of Present Illness: The patient is a 68 F who lives at home with family. Patient has COPD and pulmonary fibrosis and she has had prior stroke. Primary care physician is Dr. Baca. Parts Picker is Dr. Diallo. Patient was discharged from [facility] earlier this year. She has been at home. states she was recently hospitalized in [place] for hypercarbia. On Tuesday she fell and she fell again today. notes confusion. He notes that she basically can get to the wheelchair and he has to help her. She does not really ambulate on her own. During one fall she did hit her head and has numerous bruising of her extremities. She continues to smoke. Physical Examination: Afebrile vital signs are stable Gen: Well-nourished well-developed Head: Normocephalic atraumatic Eyes: Perrl EOMI ENT: TMs clear no rhinorrhea moist mucous membranes Neck: Supple no lymphadenopathy no JVD nontender CVS: Regular rate rhythm no murmurs normal S1-S2 Respiratory: No distress faint expiratory wheeze chest nontender Abdomen: Soft nontender nondistended normal bowel sounds no masses Back: Nontender Extremity: Nontender no edema Skin: Normal color no rash Neuro: alert orientated 3 CN II-XII intact normal strength sensation reflexes the patient does seem confused often this speaking and mixing up events/timelines and people. Psych: Normal affect normal mood Test Results: CBC CMP showed a sodium of 132. Troponin negative. ABG showed a normal pH at 7.46. PCO2 of 32.9. Chest x-ray and head CT were negative. EKG sinus at a rate of 80. Urinalysis shows no infection Emergency Department Course and Treatment: The patient results were discussed with her and her . He states that if she is to be admitted to observation he would rather take her home and bring her back if she gets worse. This is a financial decision because he states he still pain off the last observational stay. I did speak with our hospitalist and had him evaluate he does confirm that this would be a observational stay tonight. Therefore family wishes to take her home. Impression: 1. Altered mental status This note was generated with [employer] dictation software. It may contain incorrect words, spelling, and punctuation that were not noted in review of the chart prior to signing ED Disposition - Plan for ED Patient: Disposition: Against Medical Advice Chief Complaint: Dizziness Instructions: ED Confusion Referrals: Vin Baca, DO [Primary Care Provider] - As soon as possible What to do if you have Problems For any increased pain, shortness of breath, bleeding, nausea or vomiting, chest pain, or any unexpected problems, contact your Primary Care Provider. Call [facility] ([phone]) or report to the closest Emergency Room. Call 911 if necessary. 05/18/18 0816 <Electronically signed by Chato Allen DO> Date Chato Allen DO Cosigner Signature (If Indicated): Date CC: Vin Baca DO URINALYSIS, COMPLETE Collected: 05/16/2018 Status: F Source: [place] 7:10 PM [facility]POS[facility] Order Comment: Order Date: 05/16/18 How was Urine Obtained? CLEAN CATCH TYPE CODE TESTS RESULT OUT OF RANGE REFERENCE UNITS LAB L400.3000 Yellow COLOR Normal Yellow LAB L400.3050 Clear Normal CLARITY Clear LAB L400.3200 Normal mg/dl Normal GLUCOSE, UR Normal LAB L400.3300 Negative mg/dL Normal BILIRUBIN URINE Negative LAB L400.3400 Negative mg/dl Normal KETONE UR Negative LAB L400.3465 1.002-1.030 Normal SP.GR. DIPSTX 1.010 LAB L400.3550 5.0 - 8.0 pH UR Normal 8.0 LAB L400.3600 Negative mg/dl PROT Normal DIPSTX Negative LAB L400.3700 Normal mg/dl Normal UROBILI Normal LAB L400.3750 Negative Normal NITRITE UR Negative LAB L400.3780 Negative /ul Normal OCCULT BLOOD-UR Negative LAB L400.3800 Negative /ul LEUK Normal ESTERASE Negative LAB L400.4050 0-5 /hpf WBC 0 Normal SEEN LAB L400.4100 0-5 /hpf 0 Normal RBC-UA SEEN LAB L400.4150 5-10 /hpf SQUAM Normal EPI 0-5 SEEN LAB L400.4300 None Seen /hpf 0 Normal BACTERIA SEEN LAB L400.4350 <or=2+ /hpf 0 Normal MUCUS, URINE SEEN Performed By: #### L400.0001 #### [facility] [address] [place], [place], [id number] CBC W/DIFF, AUTOMATED Collected: 05/16/2018 Status: F Source: [place] 5:45 PM [facility] TYPE CODE TESTS RESULT OUT OF RANGE REFERENCE UNITS LAB L100.1000 4.4-11.0 K/mm3 Normal WBC 7.7 LAB L100.1200 4.2-5.4 M/mm3 Low RBC 3.94 LAB L100.1300 12.0-15.0 g/dl Normal HGB 12.4 LAB L100.1400 37-47 % Normal HCT 38.0 LAB L100.1500 81-99 fL Normal MCV 96.4 LAB L100.1600 27.0-32.0 pg Normal MCH 31.5 LAB L100.1700 32-36 g/gl Normal MCHC 32.6 LAB L100.1810 11.6-14.6 % Normal RDW CV 13.7 LAB L100.1820 35.1-43.9 fl High RDW SD 48.8 LAB L100.1900 150-450 K/mm3 Normal PLT 201 LAB L100.2000 6.2-12.0 fl Normal MPV 9.5 LAB L100.2100 47-70 % High NEUT% 75.7 LAB L100.2200 19-41 % Low LY% 16.1 LAB L100.2300 0-10 % Normal MONO% 5.1 LAB L100.2400 0-5 % Normal EO% 1.9 LAB L100.2500 0-1 % Normal BASO% 0.4 LAB L100.2550 0.0-0.9 % Normal IM GRAN % 0.800 Result Comment: IG% - Immature Granulocytes (promyelocytes, myelocytes and metamyelocytes) > 1% indicates that a LEFT SHIFT is Present. LAB L100.2620 2.0-7.7 X10 3/uL Normal Absolute Neut 5.8 LAB L100.2720 0.83-4.51 X10 3/ul Normal Absolute Lymph 1.24 Performed By: #### L100.0100 #### [facility] [address] [place], [place], [address] COMPREHENSIVE METABOLIC Collected: 05/16/2018 Status: F Source: DI[facility]OND NICOLE 5:45 PM [facility] TYPE CODE TESTS RESULT OUT OF RANGE REFERENCE UNITS LAB L501.0100 74-106 mg/dL Normal GLU 74 Result Comment: Please note revised GLUCOSE reference range effective 2017. LAB L501.1000 7-18 mg/dL Normal BUN 11 LAB L501.1100 0.55-1.02 mg/dL Normal CREAT,SERUM 0.70 Result Comment: The validity of the calculated GFR AND GFRAA in patients over 70 years has not been determined. Clinical correlation is essential. LAB L501.1110 >60 mL/min Normal EST GFR 89 Result Comment: Non- GFR Calc LAB L501.1115 >60 mL/min Normal EST GFR - AA 108 Result Comment: GFR Calc LAB L501.1255 ml/min Normal Estimated CRCL 55.82 LAB L501.1300 10-20 RATIO Normal BUN/CRE 15.7 LAB L501.1500 6.4-8. g/dL Normal 2 T PROT 6.8 LAB L501.1800 3.2-5. g/dL Normal 0 ALB 3.2 LAB L501.1950 2.2-4. g/dL Normal 2 GLOB 3.6 LAB L501.2000 0.9-2. RATIO Normal 4 A/G 0.9 LAB L501.2200 8.5-10 mg/dL Low .1 CA 7.9 LAB L501.4100 15-37 U/L Low AST 11 LAB L501.4305 45-117 U/L Normal ALK P 84 LAB L501.4405 13-56 U/L Normal ALT 15 LAB L501.4600 0.20-1 mg/dL Normal .00 T BILI 0.20 LAB L501.5300 136-14 mmol/L Low 5 NA 132 LAB L501.5600 3.5-5. mmol/L Normal 1 K 3.9 LAB L501.5900 98-107 mmol/L Normal CL 102 LAB L501.6100 21.0-3 mmol/L Normal 2.0 CO2 23.0 LAB L501.6200 5-15 Normal GAP 7 Performed By: #### L500.4050, L501.4010 #### [facility] [address] [place], [address] TROPONIN-I Collected: 05/16/2018 Status: F Source: GERRY 5:45 PM [facility] TYPE CODE TESTS RESULT OUT OF RANGE REFERENCE UNITS LAB L501.4010 <0.045 ng/mL Normal < 0.015 TROPONIN-I Result Comment: TROPONIN-I EXPECTED VALUES <0.045 Negative 0.045 - 0.590 Consistent with Cardiac Damage > OR = 0.600 Critical Value Not every elevated troponin is indicative of ND. These values should be used with clinical judgement in examining the patient's clinical picture for diagnosis. To establish a diagnosis of ND versus myocardial injury, there must be a demonstrated rise and/or fall in the troponin values, in addition to ischemic symptoms, EKG changes, new regional wall motion abnormality, and/or angiographical evidence. PLEASE NOTE: REFERENCE RANGES EDITED 17 Performed By: #### L500.4050, L501.4010 #### [facility] [address] [place], [address] BLOOD GASES BY CPS Collected: 05/16/2018 Status: F Source: GERRY 5:37 PM [facility] TYPE CODE TESTS RESULT OUT OF RANGE REFERENCE UNITS LAB L9000.9990 Normal BLD GAS TYPE ART LAB L9001.1000 L Normal SITE Brachial LAB L9001.1050 O2 Normal Delivery Dev Room Air LAB L9001.1104 ED Normal Results To MD LAB L9001.1105 Normal Time Given 1736 LAB L9001.1110 7.35-7.45 High pH - I-STAT 7.46 LAB L9001.1210 35-45 mmHg Low pCO2 - ISTAT 32.9 LAB L9001.1310 75-100 mmHG 76 Normal PO2 I-STAT LAB L9001.2300 22-26 mmol/L Normal HCO3 ISTAT 23.4 LAB L9001.2400 -2 to +2 mmol/L BE 0 Normal ISTAT LAB L9001.2415 mmol/L 24 Normal TOTAL CO2 ISTAT LAB L9001.2425 95-99 % 96 Normal SO2 ISTAT Performed By: #### L9000.0800 #### [facility] Point of Care [address] [place], [place] [address] BRAIN/HEAD WITHOUT Observed: 05/16/2018 Status: F Source: GERRY CONTRAST 5:28 PM [facility] [place] [address] Brain/Head without Contrast MR#: [id number] Acct: [id number] Name: FRANCISCO HERNANDEZ Rep #: [id number] : 1950 F 68 From: Erik Howard MD PCP: Vin Baca DO Status: REG ER Study: Brain/Head without Contrast Date of Exam: 05/16/18 Exam# [id number] Ordering Dr: Chato Allen DO STUDY: CT BRAIN WITHOUT CONTRAST REASON FOR EXAM: Female, 68 years old. Confusion. RADIATION DOSAGE (If Supplied By Facility): CTDIvol = ( 44.99 ) mGy, DLP = ( 796.11 ) mGycm TECHNIQUE: Transaxial CT imaging of the brain was performed without administration of intravenous contrast material. Individualized dose optimization techniques were used for this CT. COMPARISON: 10/26/2016 FINDINGS: There are stable postsurgical changes from a left mastoidectomy. Again noted is a left-sided cochlear implant. The streak artifact from the hardware limits evaluation. There is an old right parietal infarct which is new when compared with the prior exam. There is no acute bleed or infarct identified. There are chronic ischemic and atrophic changes. The ventricles are normal in configuration. There is no hydrocephalus. The visualized paranasal sinuses are clear. There is no skull fracture. CT/Brain/Head without Contrast IMPRESSION: Study limited by streak artifact due to the patient's left cochlear implant. Old right parietal infarct which is new when compared with 10/26/2016. No acute intracranial abnormality identified. Stable chronic ischemic changes. Electronically Signed: Erik Howard, at 18:37 EST Tel , Service support , CC: Vin Baca DO; Chato Allen DO Salesperson [employer] Furnishings: Signed CHEST PA AND LATERAL Observed: 05/16/2018 Status: F Source: DIAOMND 5:28 PM [facility] Imaging Services [address] [place] [address] Chest PA and Lateral MR#: [id number] Acct: [id number] Name: FRANCISCO HERNANDEZ Rep #: [id number] : 1950 F 68 From: Erik Howard MD PCP: iVn Baca DO Status: REG ER Study: Chest PA and Lateral Date of Exam: 05/16/18 Exam# [id number] Ordering Dr: Chato Allen DO STUDY: X-RAY CHEST REASON FOR EXAM: Female, 68 years old. Dizziness TECHNIQUE: Frontal and lateral views of the chest COMPARISON: 10/24/2016 FINDINGS: There is a right-sided port with its tip in the superior vena cava. The lungs are clear. There are no pleural effusions. There is no pneumothorax. The heart is normal in size. The visualized osseous structures are within normal limits. RAD/Chest PA and Lateral IMPRESSION: No acute thoracic pathology. Electronically Signed: Erik Howard, at 19:03 EST Tel , Service support , CC: Vin Baca DO; Chato Allen DO Salesperson [employer] Furn[employer]: Signed PULMONARY VISIT REPORT Observed: 04/13/2018 Status: F Source: DIAMOND 10:36 AM [facility] REPOS[facility] [address] [place] [address] OFFICE VISIT Date of Service: 04/13/18 MR#: [id number] Acct: [id number] Name: FRANCISCO HERNANDEZ Rep #: [id number] : 1950 Provider: Gerry Diallo MD Age/Sex: 68/F Location: [facility] Status: Signed Assessment AND Plan Problems 1. Acute on chronic respiratory failure with hypercapnia J96.22 2. RENNY (obstructive sleep apnea) G47.33 3. Tobacco abuse Z72.0 4. Pulmonary fibrosis J84.10 5. Chronic obstructive pulmonary disease, unspecified COPD type J44.9 Plan Patient with recent hospitalization secondary to CO2 narcosis. Unclear if this is related to medication depression of respiratory function or noncompliance with Symbicort therapy. Will add Spiriva to complete triple therapy. Patient was personally instructed on the use of the Respimat inhaler. Patient has not tolerated dry powder inhalers in the past. Stressed to the patient the importance of using CPAP overnight. If patient continues to have complications, transition to noninvasive ventilator may be necessary at the next visit. Continue to work on smoking cessation. Complications of Chantix therapy and warning signs were reviewed with the patient. Signs and symptoms of exacerbation and sick policy were reviewed and patient voiced understanding. Add Spiriva. Encourage compliance with CPAP therapy. Possible initiation of noninvasive ventilator at next visit if not improving. Orders Orders: Medications New: tiotropium bromide 2.5 mcg/actuation (Spiriva R2 puffs Inhalation DAILY 4 grams 5RF J44.9 espimat) Discontinued: Plan Detail Follow Up 3 Months ([facility]) HPI 3 M FU: Chief Complaint: Recent hospitalization Details: Patient is a 68-year-old female, currently under the care of Dr. Baca, who presents for evaluation secondary to recent hospitalization. Since last visit, patient has been hospitalized at [facility] with details described below. Patient feels that she is somewhat improved compared to discharge, but feels that she still has significant issues with confusion, especially overnight. Patient was initiated on Chantix therapy, but continues to smoke. Patient is no longer on prednisone therapy. Patient states I feel shaky inside. Patient states that this is not related to the use of inhalers. Patient has been compliant with Symbicort therapy. Patient reports that prior to her hospitalization she did have an episode of thrush secondary to not gargling. Patient initiated gargling with resolution. No nystatin was required. Patient also admits that she tends to forget her evening dose of Symbicort. Patient reports that she has been using her CPAP therapy, but patient's reports that she tends to tear it off after an hour or 2 of sleep. He has not been placing her back on secondary to her staying up after its replaced. Patient does report being fatigued during the day, but is unclear if this is related to her medications. Patient is currently receiving physical therapy 3 times weekly. Patient has been weak and requiring a wheelchair to get around. Patient did have a fall yesterday when trying to use a walker. Patient estimates that she has been using DuoNeb every other day. Documentation and imaging reviewed with the patient 22 pages of documentation from [facility] were reviewed. Patient was admitted there from 03/09/2018 until 03/13/2018 secondary to COPD exacerbation and hypercapnic respiratory failure. Patient did have an abdominal ultrasound showing no significant findings and a chest x-ray showing no infiltrates. CT scan of the head showed a 4 x 2 cm focus of cystic encephalomalacia with cochlear implant. Patient was reportedly treated with BiPAP therapy and mentation improved rapidly. Patient was requested to go to a custodial, but refused and was sent home with family members. Patient was sent home on a prednisone taper HPI Comments Details: Intake Vital Signs04/13/18 Height 5 ft 8 in 04/13/18 Weight: 63.957 kg Intake Visit Reasons: 3 M FU Lamination Technician Required: No Accompanied by: Family / Other Allergies Sulfa (Sulfonamide Antibiotics) Adverse Reaction (Intermediate, Verified 04/13/18 06:40) Other - Messes with blood counts prochlorperazine edisylate [From Compazine] Adverse Reaction (Mild, Verified 04/13/18 06:40) Other - Restless legs prochlorperazine maleate [From Compazine] Adverse Reaction (Mild, Verified 04/13/18 06:40) Other - Restless legs Medications Levothyroxine [Synthroid] 150 mcg PO DAILY 08/23/16 [History Confirmed 04/13/18] Pantoprazole Sodium [Protonix] 40 mg PO DAILY 08/23/16 [History Confirmed 04/13/18] albuterol sulfate HFA 90 mcg/actuation aerosol inhaler 2 puff INHALATION Q4H PRN g 06/16/17 [History Confirmed 04/13/18] ipratropium-albuterol 0.5 mg-3 mg(2.5 mg base)/3 mL nebulization soln 3 ml INHALATION Q4H PRN ml 06/16/17 [History Confirmed 04/13/18] budesonide-formoterol HFA 160 mcg-4.5 mcg/actuation aerosol inhaler 2 inh INHALATION Q12H #10.2 g 09/28/17 [Rx Confirmed 04/13/18] Cyclobenzaprine [Flexeril] 10 mg PO TID PRN PRN 12/14/17 [History Confirmed 04/13/18] Divalproex Sodium [Depakote] 500 mg PO DAILY 12/14/17 [History Confirmed 04/13/18] Risperidone [Risperdal] 0.5 mg PO DAILY 12/14/17 [History Confirmed 04/13/18] Risperidone [Risperdal] 1 mg PO QHS 12/14/17 [History Confirmed 04/13/18] Ropinirole HCl [Requip] 0.5 mg PO QHS 12/14/17 [History Confirmed 04/13/18] Sertraline HCl [Zoloft] 50 mg PO DAILY 12/14/17 [History Confirmed 04/13/18] melatonin 10 mg capsule 10 mg PO HS 12/29/17 [History Confirmed 04/13/18] Divalproex Sodium [Depakote] 750 mg PO QHS 02/05/18 [History Confirmed 04/13/18] Rizatriptan Benzoate [Maxalt] 10 mg PO .X1 PRN PRN 02/05/18 [History Confirmed 04/13/18] tiotropium bromide 2.5 mcg/actuation mist for inhalation 2 puff INHALATION DAILY #4 g 04/13/18 [Rx Confirmed 04/13/18] PFSH Medical History Encephalopathy (Acute) Leukocytosis (Acute) Hypotension (Acute) Decreased level of consciousness (Acute) Respiratory failure with hypercapnia (Acute) MRSA pneumonia (Acute) Acute delirium (Acute) Headache (Acute) RENNY (obstructive sleep apnea) (Chronic) Mild diastolic dysfunction (Chronic) Depression (Chronic) Restless leg (Chronic) HTN (hypertension) (Chronic) Presbycusis of both ears (Chronic) Adrenal insufficiency (Chronic) COPD (chronic obstructive pulmonary disease) (Chronic) Hypothyroidism (Chronic) Pulmonary fibrosis (Chronic) COPD with acute exacerbation (Acute) Gallstones (Acute) Septic shock (Acute) UTI (urinary tract infection) (Acute) Anxiety (Chronic) Bronchitis (Chronic) Carpal tunnel syndrome (Chronic) Cataract (Chronic) Chronic back pain (Chronic) Migraine (Chronic) Osteopenia (Chronic) Solitary pulmonary nodule (Chronic) Stage 2 moderate COPD by GOLD classification (Chronic) Tobacco abuse (Chronic) Acute respiratory failure (Resolved) H/O: hysterectomy (Resolved) Hypersomnia (Resolved) Surgical History Cochlear implant in place (Resolved) H/O adenoidectomy (Resolved) History of cataract surgery (Resolved) History of cholecystectomy (Resolved) History of lung biopsy (Resolved) Hx of appendectomy (Resolved) Hx of left knee surgery (Resolved) lipoma removal (Resolved) vocal nodules removed (Resolved) Family History Mother Hypertension CVA (cerebral vascular accident) Father CVA (cerebral vascular accident) Hypertension Sister Colon cancer Grandfather Hypertension Heart disease Social History Smoking Status: Current every day smoker second hand exposure: No alcohol intake: never substance use type: does not use Review of Systems Const CONSTITUTIONAL: Positive fatigue; negative anorexia, body ache, chills, daytime sleepiness, fever(s), night sweats, oral thrush, stops breathing during sleep, weight loss, sleeping in chair, weight loss, weight gain, frequent colds, seasonal allergies, other, headache(s) or orthopnea EETM Ear Nose Throat Mouth: Positive nasal discharge and hearing normal; negative hoarseness, dry mouth in morning, change in vision, itchy eyes, eye pain, swallowing Difficulty, ear pain, headache(s), mouth pain, nasal congestion, sinus pain, sinus pressure, sore throat, other, hard of hearing, nose bleed or post nasal drip Cardio Cardiovascular: Negative chest pain, chest pain at rest, chest pain with activity, irregular heart rhythm, edema, shortness of breath when lying down, palpitations, other or murmur Resp Respiratory: Positive as per HPI, shortness of breath shortness of breath: Positive with activity, wheezing, cough cough: Positive non-productive and inhalers; negative pain with cough, chest congestion, chest tightness, pain on inspiration, increase use of rescue inhalers, snoring, apnea or other Gastro Gastrointestional: Negative bloody stools, change in appetite, difficulty swallowing, reflux, hematemesis, melena stool, loose stool, constipation or other Genitourinary: Negative blood in urine, nocturia, pain with urination or other Musc Musculoskeletal: Negative body pain, back pain, neck pain or other Skin/Breast Skin/Breast: Negative dry skin, itching, unusual bruising, breast lump, other or rash Neuro Neurological: Positive weakness; negative restless legs, confusion or other Psych Psychocological: Negative abnormal sleep pattern, anxiety, thoughts of hurting self/others, hopelessness or other Lymph Lymphatic: Negative easy bleeding, easy bruising, other or swollen lymph nodes Exam Const Constitutional: Positive conversant, cooperative, in no acute respiratory distress, well developed, well nourished, good hygiene, appears older than stated age and frail appearing; negative dyspenic or wearing supplemental oxygen Head Head: Positive normocephalic and atraumatic; negative cyanosis of lips/distal nose, frontal sinus tenderness or maxillary sinus tenderness Eyes Eye: Positive clear conjunctiva; negative nystagmus, scleral abnormality or cataract present Ears Ear: Positive hearing normal and external ears normal; negative hard of hearing Nose Nose: Positive external nose normal, septum normal and no nasal discharge; negative epistaxis or nasal polyp Mouth Mouth: Positive oral mucosae normal, no lesions, poor dentition and posterior oropharynx is adequate; negative post nasal drip, malodorous breath or oral thrush present Mallampati Score: II: Mallampati Score Neck Neck: Positive normal visual inspection, full ROM and trachea midline; negative lymphadenopathy or JVD Chest Wall Chest: Positive symmetric chest movement and increased A/P diameter; negative crepitus or tenderness Resp lung sounds: Positive diminished and prolonged expiratory time; negative wheezes, rhonchi, rales, use of accessory muscles, wheeze present on forced exhalation or dullness to percussion Cardio Cardiac: Positive regular rate, regular rhythm, S1 normal and S2 normal; negative murmur, rub or gallop GI GI: Positive normal to inspection and normal bowel sounds; negative distended, ascites or epigastric tenderness Genitourinary: Positive deferred Musc Musculoskeletal: Positive kyphosis and in a wheelchair; negative scoliosis Skin Pulmonary Skin Exam: Positive intact and dermal atrophy; negative rash, lesion or ulcers Pulses Pulse: Yes radial pulses present Extremities Extremities: Yes capillary refill normal, Yes clubbing, No cyanosis, No edema, No stasis dermatitis Neuro Neurologic: Yes conversant, Yes no focal neuro deficits, Yes cooperative, Yes normal coordination, Yes understands questions Lymph Lymphatic: No lymphadenopathy Psych Appearance: Positive grossly normal Mental Status: Positive mental status grossly normal Mood: Positive congruent mood Affect: Positive flat Office Procedures Inhaler Training Inhaler Training Procedure performed by: Melony dialloer Training: Yes personally trained on inhaler use, sample provided, expresses understanding, continue to monitor and other ( and daughter also present) Coding Level of Care Code Off vis,est,level 4 Diagnoses Acute on chronic respiratory failure with hypercapnia J96.22 Chronicity: acute on chronic RENNY (obstructive sleep apnea) G47.33 Tobacco abuse Z72.0 Pulmonary fibrosis J84.10 Chronic obstructive pulmonary disease, unspecified COPD type J44.9 COPD type: unspecified COPD 04/13/18 1036 <Electronically signed by Gerry Diallo MD> Date Gerry Diallo MD Cosigner Signature: Date (if applicable) CC: Vin Baca DO EMERGENCY DEPARTMENT Observed: 03/30/2018 Status: F Source: [facility]ERRY SUMMARY 7:09 PM [facility] REPOSITORY [facility] Medical Records Department [address] [place] [address] Emergency Department Summary 03/30/18 1809 MR#: [id number] Acct: [id number] Name: FRANCISCO HERNANDEZ Rep #: [id number] : 1950 68 From: Josh Bermudez MD PCP: Vni Baca DO Status: REG ER - ER Visit Summary Date of Service: 03/30/18 Chief Complaint: Migraine History of Present Illness: The patient is a 68 F with multiple comorbidities who presents to the emergency department with migraine and nausea. The patient has a history of chronic migraine. She states she gets flares almost once a month. She states that this is her normal migraine. It started gradually behind her right eye with photophobia and nausea. She has not vomited. She states this is a normal headache that she gets. The patient does have multiple comorbidities including prior stroke, press syndrome, and pulmonary fibrosis. She denies any trauma. She denies any visual change. She is otherwise been in her normal state of health. Physical Examination: Well-appearing patient is in no acute distress. Head is normocephalic, atraumatic. Pupils equal round reactive, extraocular muscles intact. There is no temporal artery tenderness. There is no vesicular rash. Neck supple. Kernig's and Brudzinski's are negative. Heart regular rate and rhythm. Lungs clear, chest nontender. Abdomen soft, nontender, nondistended. Neuro exam displays no focal or lateralizing deficit. 2+ symmetric lower extremity reflexes. No clonus. No ataxia or gait abnormality. Test Results: [] Emergency Department Course and Treatment: The patient presents with a normal migraine. She is not meningitic. Is not encephalopathic. She has a normal neurologic examination. The patient was given DHE, Toradol, and Phenergan. Within 30 minutes, she had total resolution of her headache. Her exam continues to be unremarkable. At this time, I do feel that she is safe for outpatient therapy. The patient will be discharged home. Treatment Plan: [] Disposition: Discharge Impression: Migraine This note was generated with [employer] dictation software. It may contain incorrect words, spelling, and punctuation that were not noted in review of the chart prior to signing ED Disposition - Plan for ED Patient: Chief Complaint: Headache Instructions: ED Headache Migraine Referrals: Vin Baca, DO [Primary Care Provider] - What to do if you have Problems For any increased pain, shortness of breath, bleeding, nausea or vomiting, chest pain, or any unexpected problems, contact your Primary Care Provider. Call [facility] ([phone]) or report to the closest Emergency Room. Call 911 if necessary. 03/30/18 5919 <Electronically signed by Josh Bermudez MD> Date Josh Bermudez MD Cosigner Signature (If Indicated): Date CC: Vin Baca DO [facility] Collected: 03/12/2018 Status: F Source: [facility] 5:58 AM [facility] REPOSITORY TYPE CODE TESTS RESULT OUT OF REFERENCE UNITS RANGE LAB AMM(LOINC) 25-35 mcmol/l High Ammonia 45 Performed By: #### AMM #### [place] [address] AMM Collected: 03/11/2018 Status: F Source: [facility] 6:30 AM [facility] REPOSITORY TYPE CODE TESTS RESULT OUT OF REFERENCE UNITS RANGE LAB AMM(LOINC) 25-35 mcmol/l High Ammonia 44 Performed By: #### VBG, B12, AMM, CMP, GFR, FOL #### [place] [address] VBG Collected: 03/11/2018 Status: F Source: [facility] 5:47 AM [facility] REPOSITORY TYPE CODE TESTS RESULT OUT OF REFERENCE UNITS RANGE LAB PHV(LOINC) 7.380-7.460 pH Venous 7.395 LAB VPCO2(LOINC 41.0-51.0 mmHg ) pCO2 Abelino 43.2 LAB PO2V(LOINC) 35.0-40.0 mmHg High pO2 Abelino 128.5 LAB HCO3V(LOINC 21.0-30.0 mmol/L ) HCO3 Abelino 25.9 LAB TCO2V(LOINC 70.0-75.0 % ) High TCO2 Venous 98.7 LAB STEPHEN(LOINC) -3.0-3.0 mmol/L BE Venous 0.7 Performed By: #### VBG, B12, AMM, CMP, GFR, FOL #### [place] [address] B12 Collected: 03/11/2018 Status: F Source: [facility] 5:47 AM [facility] REPOSITORY TYPE CODE TESTS RESULT OUT OF REFERENCE UNITS RANGE LAB B12(LOINC) 211-911 pg/mL High Vitamin B12 1380 Lvl Performed By: #### VBG, B12, AMM, CMP, GFR, FOL #### [place] [address] CMP Collected: 03/11/2018 Status: F Source: [facility] 5:47 AM [facility] REPOSITORY TYPE CODE TESTS RESULT OUT OF REFERENCE UNITS RANGE LAB GLU(LOINC) 82-115 mg/dL Low Glucose Level 67 LAB NA(LOINC) 136-145 mEq/L Sodium Level 142 LAB K(LOINC) 3.5-5.0 mEq/L Potassium Level 4.0 LAB CL(LOINC) 98-110 mEq/L Chloride 107 LAB CO2(LOINC) 22-32 mEq/L CO2 27 LAB EBAL(LOINC 4.0-15.0 mEq/L ) Electrolyte Balance 8.0 LAB BUN(LOINC) 8.0-22.0 mg/dL BUN 21.0 LAB CRE(LOINC) 0.50-1.20 mg/dL Creatinine Lvl (s) 0.62 LAB BC(LOINC) 10.0-22.0 ratio High BUN/Creatinine 33.9 Ratio LAB CA(LOINC) 8.4-10.1 mg/dL Low Calcium Lvl 8.3 LAB PROT(LOINC 6.0-8.5 G/dL ) Total Protein 6.5 LAB ALB(LOINC) 3.2-4.8 G/dL Low Albumin Level 2.7 LAB GLB(LOINC) 1.5-3.8 G/dL Globulin 3.8 LAB AG(LOINC) 0.9-1.6 ratio Low A/G Ratio 0.7 LAB BILT(LOINC 0.2-1.2 mg/dL ) Bili Total 0.3 LAB AP(LOINC) 38-126 U/L Alk Phos 107 LAB AST(LOINC) 8-34 U/L AST/SGOT 21 LAB ALT(LOINC) 10-49 U/L ALT/SGPT 43 Performed By: #### VBG, B12, AMM, CMP, GFR, FOL #### [place] [address] .GFR Collected: 03/11/2018 Status: F Source: [facility] 5:47 AM [facility] REPOSITORY TYPE CODE TESTS RESULT OUT OF REFERENCE UNITS RANGE LAB GFRAA(LOINC ml/min/1.73 ) sqm GFR >60 [facility] [place] Result Comment: GFR Population mean for , Non- Americans Ages 20-29 = 116 mL/min/1.73 sq.m. Ages 30-39 = 107 mL/min/1.73 sq.m. Ages 40-49 = 99 mL/min/1.73 sq.m. Ages 50-59 = 93 mL/min/1.73 sq.m. Ages 60-69 = 85 mL/min/1.73 sq.m. Ages 70+ = 75 mL/min/1.73 sq.m. Chronic Kidney Disease: Less than 60 mL/min/1.73 square meters End Stage Renal Disease: Less than 15 mL/min/1.73 square meters LAB GFRNO(LOINC) ml/min/1.73sqm GFR Non- >60 Result Comment: GFR Population mean for , Non- Americans Ages 20-29 = 116 mL/min/1.73 sq.m. Ages 30-39 = 107 mL/min/1.73 sq.m. Ages 40-49 = 99 mL/min/1.73 sq.m. Ages 50-59 = 93 mL/min/1.73 sq.m. Ages 60-69 = 85 mL/min/1.73 sq.m. Ages 70+ = 75 mL/min/1.73 sq.m. Chronic Kidney Disease: Less than 60 mL/min/1.73 square meters End Stage Renal Disease: Less than 15 mL/min/1.73 square meters Performed By: #### VBG, B12, AMM, CMP, GFR, FOL #### [place] [address] FOL Collected: 03/11/2018 Status: F Source: [facility] 5:47 [facility] REPOSITORY TYPE CODE TESTS RESULT OUT OF REFERENCE UNITS RANGE LAB FOL(LOINC) 1.1-20.0 ng/mL High Folate 21.8 Performed By: #### VBG, B12, AMM, CMP, GFR, FOL #### [place] [address] US ABDOMEN/ABDOMEN DOPPLER Observed: 03/10/2018 Status: F Source: [facility] 9:30 AM [facility] REPOSITORY ORIGINAL US ABDOMEN/ABDOMEN DOPPLER CLINICAL STATEMENT: evaluate for fatty liver , decreased albumin level and A/G ratio COMPARISON: CT 05/29/2009 FINDINGS: The liver is normal in size and echogenicity. No focal lesion is seen. No evidence of fatty change. No obvious nodularity of its visualized portions. There is no intra or extrahepatic bile duct dilatation. The common duct is 4 mm at the zully hepatis. The gallbladder is surgically absent. The pancreas as visualized is normal. No ascites is seen. No splenomegaly. Limited survey images of the kidneys show normal size and cortical thickness. Renal echogenicity is within normal limits. No pelvocaliectasis. There is a 1.2 cm cortical cyst in the mid LEFT kidney. The abdominal aorta shows moderate atherosclerotic change but no aneurysm. The IVC is nondilated. Duplex Doppler of the portal and hepatic venous system is performed. Study is challenging due to patient's rapid breathing and inability to suspend respiration. The main portal vein and its RIGHT and LE FT branches, all 3 hepatic veins and splenic vein are patent with antegrade flow and no evidence of thrombosis. The common hepatic artery is suboptimally at the zully hepatis level due to bowel gas. IMPRESSION: No evidence of portal and hepatic venous thrombosis. No significant findings in the abdomen. The gallbladder is surgically absent. Interpreted By: Sedrick Delgado MD Preliminary Report By: Sedrick Delgado MD Electronically Signed By: Sedrick Delgado MD Dictated Date: 03/10/2018 11:29:24 AM Prelim Date: 03/10/2018 11:29:24 AM Sign Date: 03/10/2018 11:33:59 AM VBG Collected: 03/10/2018 Status: F Source: [facility] 6:54 AM [facility] REPOSITORY TYPE CODE TESTS RESULT OUT OF REFERENCE UNITS RANGE LAB PHV(LOINC) 7.380-7.460 pH Venous 7.401 LAB VPCO2(LOINC 41.0-51.0 mmHg ) pCO2 Abelino 43.3 LAB PO2V(LOINC) 35.0-40.0 mmHg High pO2 Abelino 268.3 LAB HCO3V(LOINC 21.0-30.0 mmol/L ) HCO3 Abelino 26.3 LAB TCO2V(LOINC 70.0-75.0 % ) High TCO2 Venous 99.3 LAB STEPHEN(LOINC) -3.0-3.0 mmol/L BE Venous 1.2 Performed By: #### VBG, CBC, AMM, CMP, GFR, VALPR, DIFF, MORPH #### [address] [address] CBC Collected: 03/10/2018 Status: F Source: [facility] 6:54 AM [facility] REPOSITORY TYPE CODE TESTS RESULT OUT OF REFERENCE UNITS RANGE LAB WBC(LOINC) 4.50-10.80 10 3/mcL High WBC 13.30 LAB RBCCT(LOINC 4.10-5.30 10 6/mcL ) Low RBC 3.63 LAB HGB(LOINC) 12.0-16.0 G/dL Hgb 12.1 LAB HCT(LOINC) 34.0-46.0 % Hct 36.5 LAB MCV(LOINC) 80.0-99.0 fL High MCV 100.5 LAB MCH(LOINC) 27.0-33.0 pg High MCH 33.4 LAB MCHC(LOINC) 32.0-36.0 G/dL MCHC 33.3 LAB RDW(LOINC) 11.5-15.5 % RDW 15.0 LAB PLT(LOINC) 150-450 10 3/mcL Platelet 271 LAB MPV(LOINC) 6.6-10.5 fL MPV 6.9 Performed By: #### VBG, CBC, AMM, CMP, GFR, VALPR, DIFF, MORPH #### [place] [address] AMM Collected: 03/10/2018 Status: F Source: [facility] 6:54 AM [facility] REPOSITORY TYPE CODE TESTS RESULT OUT OF REFERENCE UNITS RANGE LAB AMM(LOINC) 25-35 mcmol/l High Ammonia 56 Performed By: #### VBG, CBC, AMM, CMP, GFR, VALPR, DIFF, MORPH #### [place] [address] CMP Collected: 03/10/2018 Status: F Source: [facility] 6:54 [facility] REPOSITORY TYPE CODE TESTS RESULT OUT OF REFERENCE UNITS RANGE LAB GLU(LOINC) 82-115 mg/dL Glucose Level 83 LAB NA(LOINC) 136-145 mEq/L Sodium Level 144 LAB K(LOINC) 3.5-5.0 mEq/L Potassium Level 3.9 LAB CL(LOINC) 98-110 mEq/L Chloride 109 LAB CO2(LOINC) 22-32 mEq/L CO2 27 LAB EBAL(LOINC 4.0-15.0 mEq/L ) Electrolyte Balance 8.0 LAB BUN(LOINC) 8.0-22.0 mg/dL BUN 16.0 LAB CRE(LOINC) 0.50-1.20 mg/dL Creatinine Lvl (s) 0.60 LAB BC(LOINC) 10.0-22.0 ratio High BUN/Creatinine 26.7 Ratio LAB CA(LOINC) 8.4-10.1 mg/dL Low Calcium Lvl 8.0 LAB PROT(LOINC 6.0-8.5 G/dL ) Total Protein 6.1 LAB ALB(LOINC) 3.2-4.8 G/dL Low Albumin Level 2.5 LAB GLB(LOINC) 1.5-3.8 G/dL Globulin 3.6 LAB AG(LOINC) 0.9-1.6 ratio Low A/G Ratio 0.7 LAB BILT(LOINC 0.2-1.2 mg/dL ) Bili Total 0.3 LAB AP(LOINC) 38-126 U/L Alk Phos 99 LAB AST(LOINC) 8-34 U/L AST/SGOT 18 LAB ALT(LOINC) 10-49 U/L ALT/SGPT 31 Performed By: #### VBG, CBC, AMM, CMP, GFR, VALPR, DIFF, MORPH #### [place] [address] .GFR Collected: 03/10/2018 Status: F Source: [facility] 6:54 [facility] TYPE CODE TESTS RESULT OUT OF REFERENCE UNITS RANGE LAB GFRAA(LOINC ml/min/1.73 ) sqm GFR >60 [facility] Result Comment: GFR Population mean for , Non- Americans Ages 20-29 = 116 mL/min/1.73 sq.m. Ages 30-39 = 107 mL/min/1.73 sq.m. Ages 40-49 = 99 mL/min/1.73 sq.m. Ages 50-59 = 93 mL/min/1.73 sq.m. Ages 60-69 = 85 mL/min/1.73 sq.m. Ages 70+ = 75 mL/min/1.73 sq.m. Chronic Kidney Disease: Less than 60 mL/min/1.73 square meters End Stage Renal Disease: Less than 15 mL/min/1.73 square meters LAB GFRNO(LOINC) ml/min/1.73sqm GFR Non- >60 Result Comment: GFR Population mean for , Non- Americans Ages 20-29 = 116 mL/min/1.73 sq.m. Ages 30-39 = 107 mL/min/1.73 sq.m. Ages 40-49 = 99 mL/min/1.73 sq.m. Ages 50-59 = 93 mL/min/1.73 sq.m. Ages 60-69 = 85 mL/min/1.73 sq.m. Ages 70+ = 75 mL/min/1.73 sq.m. Chronic Kidney Disease: Less than 60 mL/min/1.73 square meters End Stage Renal Disease: Less than 15 mL/min/1.73 square meters Performed By: #### VBG, CBC, AMM, CMP, GFR, VALPR, DIFF, MORPH #### [place] [id number] VALPR Collected: 03/10/2018 Status: F Source: [facility] 6:54 AM [facility] REPOSITORY TYPE CODE TESTS RESULT OUT OF REFERENCE UNITS RANGE LAB LD017(LOINC ) LDose Valproic See eMAR Acid: LAB VALP(LOINC) 50-130 mcg/mL Valproic Acid 66 Lvl Performed By: #### VBG, CBC, AMM, CMP, GFR, VALPR, DIFF, MORPH #### [place] [id number] .MANUAL DIFF Collected: 03/10/2018 Status: F Source: [facility] 6:54 AM [facility] REPOSITORY TYPE CODE TESTS RESULT OUT OF REFERENCE UNITS RANGE LAB LIMIT(LOIN C) Cells Counted 100 LAB NEUM(LOINC 50.0-75.0 % ) Neutrophil %, High Manual 76.0 LAB LYMM(LOINC 20.0-40.0 % ) Lymphocyte %, Low Manual 10.0 LAB MONM(LOINC 2.0-13.0 % ) Monocyte %, Manual 9.0 LAB EOM(LOINC) 0.0-6.0 % Eosinophil %, Manual 0.0 LAB BASM(LOINC 0.0-2.5 % ) Basophil %, Manual 0.0 LAB BAND(LOINC 0.0-5.0 % ) Bands 1.0 LAB META(LOINC % ) Metamyelocyte 1.0 LAB MYEL(LOINC % ) Myelocyte 3.0 LAB ANEUM(LOIN 2.25-8.10 10 3/mcL C) Neutrophil, Abs High Manual 10.24 LAB ABLYMM(JULIA 0.90-4.32 10 3/mcL NC) Lymphocyte, Abs Manual 1.33 LAB AMONM(LOIN 0.09-1.40 10 3/mcL C) Monocyte, Abs Manual 1.20 LAB AEOSM(LOIN 0.00-0.65 10 3/mcL C) Eosinophil, Abs Manual 0.00 LAB ABASM(LOIN 0.00-0.27 10 3/mcL C) Basophil, Abs Manual 0.00 Performed By: #### VBG, CBC, AMM, CMP, GFR, VALPR, DIFF, MORPH #### [place] [id number] .MORPH Collected: 03/10/2018 Status: F Source: [facility] 6:54 AM [facility] REPOSITORY TYPE CODE TESTS RESULT OUT OF REFERENCE UNITS RANGE LAB PLTE(LOINC ) Platelet Estimate Normal LAB MACYT(LOIN C) Macrocytosis Slight Performed By: #### VBG, CBC, AMM, CMP, GFR, VALPR, DIFF, MORPH #### [place] [address] AFPS Collected: 03/09/2018 Status: F Source: [facility] 12:47 [facility] REPOSITORY TYPE CODE TESTS RESULT OUT OF REFERENCE UNITS RANGE LAB AFPS(LOINC) 0.0-8.5 ng/mL AFP, Tumor 3.3 Marker Performed By: #### AFPS, AAT, RADHA, SMUSC, RAMONITA, HEPAC, COPPER #### [place] [address] AAT Collected: 03/09/2018 Status: F Source: [facility] 12:47 PM [facility] REPOSITORY TYPE CODE TESTS RESULT OUT OF REFERENCE UNITS RANGE LAB AAT(LOINC) 88-174 mg/dL Alpha 1 High Antitrypsin 217 Performed By: #### AFPS, AAT, RADHA, SMUSC, RAMONITA, HEPAC, COPPER #### [place] [address] RADHA Collected: 03/09/2018 Status: F Source: [facility] 12:47 PM [facility] REPOSITORY TYPE CODE TESTS RESULT OUT OF REFERENCE UNITS RANGE LAB RADHA(LOINC Neg 20 ) Mitochondrial Ab Neg 20 Performed By: #### AFPS, AAT, RADHA, SMUSC, RAMONITA, HEPAC, COPPER #### [facility] [address] [place] [address] SMUSC Collected: 03/09/2018 Status: F Source: [facility] 12:47 PM [facility] REPOSITORY TYPE CODE TESTS RESULT OUT OF REFERENCE UNITS RANGE LAB SMUSC(LOINC Neg 20 ) Smooth Muscle Neg 20 Ab Performed By: #### AFPS, AAT, RADHA, SMUSC, RAMONITA, HEPAC, COPPER #### [place] [address] RAMONITA Collected: 03/09/2018 Status: F Source: [facility] 12:47 PM [facility] REPOSITORY TYPE CODE TESTS RESULT OUT OF RANGE REFERENCE UNITS LAB RAMONITA(LOINC) Neg 40 RAMONITA Neg 40 Performed By: #### AFPS, AAT, RADHA, SMUSC, RAMONIAT, HEPAC, COPPER #### [place] [address] HEPAC Collected: 03/09/2018 Status: F Source: [facility] 12:47 PM [facility] REPOSITORY TYPE CODE TESTS RESULT OUT OF REFERENCE UNITS RANGE LAB HBSAG(LOINC Negative ) Hep B Negative Surf Ag LAB HBCM(LOINC) Negative Hep B Negative Core IgM Ab Result Comment: No serological evidence of ACUTE Hepatitis B infection. LAB HCV(LOINC) Negative Negative Hep C Ab LAB HCV1(LOINC) No serological evidence of Hep C Ab Hepatitis C Int infection, although levels of anti-HCV may be undetectable in early infection. LAB HAVM(LOINC) Negative Negative Hep A IgM Ab LAB HAVM1(LOINC) No serological evidence of a Hep A IgM current Hepatitis A Ab Int infection. Performed By: #### AFPS, AAT, RADHA, SMUSC, RAMONITA, HEPAC, COPPER #### [place] [address] CUS Collected: 03/09/2018 Status: F Source: [facility] 12:47 PM [facility] REPOSITORY TYPE CODE TESTS RESULT OUT OF REFERENCE UNITS RANGE LAB COPPER(LOIN 85-155 UG/DL C) Copper (s) 141 Result Comment: This test was developed and its performance characteristics determined by [facility] Pathology and Laboratory Medicine [place] ([facility] It has not been cleared or approved by the FDA. [facility] is regulated under CLIA as qualified to perform high-complexity testing. This test is used for clinical purposes. It should not be regarded as investigational or for research. Performed By: [facility] [address] [place] [address] Supervisor Home Energy Consultant: Declan Salinas#: [phone] Phone#: Performed By: #### AFPS, AAT, RADHA, SMUSC, RAMONITA, HEPAC, COPPER #### [address] [address] UA Collected: 03/09/2018 Status: F Source: [facility] 12:33 [facility] REPOSITORY TYPE CODE TESTS RESULT OUT OF RANGE REFERENCE UNITS LAB SPCUA(JULIA NC) UA Specimen Type Clean Catch LAB CLRUA(JULIA NC) UA Color Straw LAB APPUA(JULIA Clear NC) UA Appear Unknown Hazy LAB SGUA(LOIN 1.006-1.029 C) UA Spec Grav 1.010 LAB GLUA(LOIN Negative mg/dL C) UA Glucose Negative LAB BILUA(JULIA Neg-Trace NC) UA Bili Negative LAB KETUA(JULIA Neg-Trace mg/dL NC) UA Ketones Negative LAB BLDUA(JULIA Neg-Trace NC) UA Blood Negative LAB PHUA(LOIN 5.0 - 8.0 C) UA pH 7.0 LAB PROUA(JULIA Negative mg/dL NC) UA Protein Negative LAB UROUA(JULIA 0.2-1.0 E.U./dL NC) UA Urobilinogen 1.0 LAB NITUA(JULIA Negative NC) UA Nitrite Negative LAB LEUUA(JULIA Negative NC) UA Leuk Est Negative Performed By: #### UA, UAMIC #### [address] [address] UAMIC Collected: 03/09/2018 Status: F Source: [facility] 12:33 [facility] REPOSITORY TYPE CODE TESTS RESULT OUT OF REFERENCE UNITS RANGE LAB RBCUA(LOIN 0-2 /hpf C) UA RBC Rare LAB WBCUA(LOIN 0-5 /hpf C) UA WBC Rare LAB EPIUA(LOIN 0-20 /hpf C) UA Squam Epithelial 0-2 LAB MUCUA(LOIN /hpf C) UA Mucous Trace Performed By: #### UA, UAMIC #### [address] [address] BG Collected: 03/09/2018 Status: F Source: [facility] 2:43 AM [facility] REPOSITORY TYPE CODE TESTS RESULT OUT OF REFERENCE UNITS RANGE LAB PH(LOINC) 7.380-7.460 Low pH 7.327 LAB PCO2(LOINC 32.0-46.0 mmHg ) pCO2 High 50.9 LAB PO2(LOINC) 74.0-108.0 mmHg pO2 High 116.9 LAB HCO3(LOINC 21.0-29.0 mmol/L ) HCO3 26.1 LAB TCO2(LOINC 22.0-30.0 mmol/L ) CO2 Totl 27.6 LAB BE(LOINC) mmol/L Base Excess -0.7 LAB O2SAT(LOIN 92.0-96.0 % C) O2 Sat High 97.9 LAB BPRES(LOIN mmHg C) Barometric 738 Pressure Performed By: #### BG #### [place] [address] CT HEAD OR BRAIN W/O Observed: 03/09/2018 Status: F Source: [facility] CONTRAST 1:23 AM [facility] REPOSITORY ORIGINAL CT HEAD OR BRAIN W/O CONTRAST CLINICAL STATEMENT: Altered mental status. TECHNIQUE: Axial CT images from skull base to vertex without IV contrast. This exam was performed according to our departmental dose optimization program, and includes the following measures where appli cable: automated exposure control, adjustment of the mAs and/or kVp according to patient size and/or exam, and an iterative reconstruction algorithm. COMPARISON: 05/02/2017 CT angiogram of the brain. FINDINGS: LEFT cochlear implant degrades the images. There is a RIGHT frontal lobe vertex 4 x 2 cm area of cystic encephalomalacia not seen on the prior study. There is some stable mild cystic encephalo malacia in the RIGHT occipital lobe measuring approximately 2 cm area no visible acute infarct or intracranial hemorrhage. There is age-related involutional change. The skull base and calvarium demonstrate no abnormality. The included paranasal sinuses and mastoid air cells are clear. IMPRESSION: There is a 4 x 2 cm focus of cystic encephalomalacia near the RIGHT vertex which is age-indeterminate cystic , this could be subacute or chronic infarct or other pathology. 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 Interpreted By: Soehnlen ,Josh MD Preliminary Report By: Josh Nur MD Electronically Signed By: Josh Nur MD Dictated Date: 03/09/2018 1:33:30 AM Prelim Date: 03/09/2018 1:33:30 AM Sign Date: 03/09/2018 1:37:34 AM CBC Collected: 03/09/2018 Status: F Source: [facility] 12:53 AM [facility] REPOSITORY TYPE CODE TESTS RESULT OUT OF REFERENCE UNITS RANGE LAB WBC(LOINC) 4.50-10.80 10 3/mcL High WBC 15.30 LAB RBCCT(LOINC 4.10-5.30 10 6/mcL ) Low RBC 3.66 LAB HGB(LOINC) 12.0-16.0 G/dL Hgb 12.5 LAB HCT(LOINC) 34.0-46.0 % Hct 36.6 LAB MCV(LOINC) 80.0-99.0 fL High MCV 100.0 LAB MCH(LOINC) 27.0-33.0 pg High MCH 34.1 LAB MCHC(LOINC) 32.0-36.0 G/dL MCHC 34.1 LAB RDW(LOINC) 11.5-15.5 % RDW 15.1 LAB PLT(LOINC) 150-450 10 3/mcL Platelet 295 LAB MPV(LOINC) 6.6-10.5 fL MPV 6.9 Performed By: #### CBC, LAC, AMM, MG, PHOS, CMP, TROPI, GFR, DIFF, MORPH #### [address] [address] LAC Collected: 03/09/2018 Status: F Source: [facility] 12:53 AM [facility] REPOSITORY TYPE CODE TESTS RESULT OUT OF REFERENCE UNITS RANGE LAB LAC(LOINC) 0.2-2.0 mmol/L Lactic Acid 1.1 Lvl Performed By: #### CBC, LAC, AMM, MG, PHOS, CMP, TROPI, GFR, DIFF, MORPH #### [address] [address] AMM Collected: 03/09/2018 Status: F Source: [facility] 12:53 AM [facility] REPOSITORY TYPE CODE TESTS RESULT OUT OF REFERENCE UNITS RANGE LAB AMM(LOINC) 25-35 mcmol/l High Ammonia 77 Performed By: #### CBC, LAC, AMM, MG, PHOS, CMP, TROPI, GFR, DIFF, MORPH #### [address] [address] MG Collected: 03/09/2018 Status: F Source: [facility] 12:53 AM [facility] REPOSITORY TYPE CODE TESTS RESULT OUT OF REFERENCE UNITS RANGE LAB MG(LOINC) 1.6-2.4 mg/dL Magnesium Lvl 2.2 Performed By: #### CBC, LAC, AMM, MG, PHOS, CMP, TROPI, GFR, DIFF, MORPH #### [address] [address] PHOS Collected: 03/09/2018 Status: F Source: [facility] 12:53 AM [facility] REPOSITORY TYPE CODE TESTS RESULT OUT OF REFERENCE UNITS RANGE LAB PHOS(LOINC 2.5-4.5 mg/dL ) Phosphorus 3.4 Performed By: #### CBC, LAC, AMM, MG, PHOS, CMP, TROPI, GFR, DIFF, MORPH #### [place] [address] CMP Collected: 03/09/2018 Status: F Source: [facility] 12:53 AM [facility] REPOSITORY TYPE CODE TESTS RESULT OUT OF REFERENCE UNITS RANGE LAB GLU(LOINC) 82-115 mg/dL Glucose High Level 124 LAB NA(LOINC) 136-145 mEq/L Sodium Level 138 LAB K(LOINC) 3.5-5.0 mEq/L Potassium Level 4.4 LAB CL(LOINC) 98-110 mEq/L Chloride 104 LAB CO2(LOINC) 22-32 mEq/L CO2 25 LAB EBAL(LOINC 4.0-15.0 mEq/L ) Electrolyte Balance 9.0 LAB BUN(LOINC) 8.0-22.0 mg/dL BUN 15.0 LAB CRE(LOINC) 0.50-1.20 mg/dL Creatinine Lvl (s) 0.50 LAB BC(LOINC) 10.0-22.0 ratio High BUN/Creatinine 30.0 Ratio LAB CA(LOINC) 8.4-10.1 mg/dL Calcium Lvl 8.7 LAB PROT(LOINC 6.0-8.5 G/dL ) Total Protein 6.6 LAB ALB(LOINC) 3.2-4.8 G/dL Low Albumin Level 2.8 LAB GLB(LOINC) 1.5-3.8 G/dL Globulin 3.8 LAB AG(LOINC) 0.9-1.6 ratio Low A/G Ratio 0.7 LAB BILT(LOINC 0.2-1.2 mg/dL ) Bili Total 0.3 LAB AP(LOINC) 38-126 U/L Alk Phos 110 LAB AST(LOINC) 8-34 U/L AST/SGOT 15 LAB ALT(LOINC) 10-49 U/L ALT/SGPT 21 Performed By: #### CBC, LAC, AMM, MG, PHOS, CMP, TROPI, GFR, DIFF, MORPH #### [address] [address] TROPI Collected: 03/09/2018 Status: F Source: [facility] 12:53 AM [facility] REPOSITORY TYPE CODE TESTS RESULT OUT OF REFERENCE UNITS RANGE LAB TROPI(LOINC 0.000-0.040 ng/mL ) Troponin I <0.015 Result Comment: Troponin I reference ranges (02/25/14): 0.00-0.040 ng/mL Negative and non-diagnostic. >0.040 ng/mL Consistent with cardiac damage, increased clinical risk and possibility of myocardial infarction. Serial measurements, a rise & fall in test results, clinical history, appropriate symptoms and/or ECG changes may help assess possibility of ND. *Other non-acute coronary syndrome conditions such as CHF, myocarditis, pulmonary emboli, sepsis and cardiac surgery could result in myocardial damage and increased troponin levels. Performed By: #### CBC, LAC, AMM, MG, PHOS, CMP, TROPI, GFR, DIFF, MORPH #### [address] [address] .GFR Collected: 03/09/2018 Status: F Source: [facility] 12:53 AM [facility] REPOSITORY TYPE CODE TESTS RESULT OUT OF REFERENCE UNITS RANGE LAB GFRAA(LOINC ml/min/1.73 ) sqm GFR >60 [facility] [place] Result Comment: GFR Population mean for , Non- Americans Ages 20-29 = 116 mL/min/1.73 sq.m. Ages 30-39 = 107 mL/min/1.73 sq.m. Ages 40-49 = 99 mL/min/1.73 sq.m. Ages 50-59 = 93 mL/min/1.73 sq.m. Ages 60-69 = 85 mL/min/1.73 sq.m. Ages 70+ = 75 mL/min/1.73 sq.m. Chronic Kidney Disease: Less than 60 mL/min/1.73 square meters End Stage Renal Disease: Less than 15 mL/min/1.73 square meters LAB GFRNO(LOINC) ml/min/1.73sqm GFR Non- >60 Result Comment: GFR Population mean for , Non- Americans Ages 20-29 = 116 mL/min/1.73 sq.m. Ages 30-39 = 107 mL/min/1.73 sq.m. Ages 40-49 = 99 mL/min/1.73 sq.m. Ages 50-59 = 93 mL/min/1.73 sq.m. Ages 60-69 = 85 mL/min/1.73 sq.m. Ages 70+ = 75 mL/min/1.73 sq.m. Chronic Kidney Disease: Less than 60 mL/min/1.73 square meters End Stage Renal Disease: Less than 15 mL/min/1.73 square meters Performed By: #### CBC, LAC, AMM, MG, PHOS, CMP, TROPI, GFR, DIFF, MORPH #### [place] [address] .MANUAL DIFF Collected: 03/09/2018 Status: F Source: [facility] 12:53 AM [facility] REPOSITORY TYPE CODE TESTS RESULT OUT OF REFERENCE UNITS RANGE LAB LIMIT(LOIN C) Cells Counted 100 LAB NEUM(LOINC 50.0-75.0 % ) Neutrophil %, 73.0 Manual LAB LYMM(LOINC 20.0-40.0 % ) Low Lymphocyte %, 14.0 Manual LAB MONM(LOINC 2.0-13.0 % ) Low Monocyte %, Manual 1.0 LAB EOM(LOINC) 0.0-6.0 % Eosinophil %, 0.0 Manual LAB BASM(LOINC 0.0-2.5 % ) Basophil %, Manual 0.0 LAB BAND(LOINC 0.0-5.0 % ) Bands High 12.0 LAB ANEUM(LOIN 2.25-8.10 10 3/mcL C) High Neutrophil, Abs 13.01 Manual LAB ABLYMM(JULIA 0.90-4.32 10 3/mcL NC) Lymphocyte, Abs 2.14 Manual LAB AMONM(LOIN 0.09-1.40 10 3/mcL C) Monocyte, Abs 0.15 Manual LAB AEOSM(LOIN 0.00-0.65 10 3/mcL C) Eosinophil, Abs 0.00 Manual LAB ABASM(LOIN 0.00-0.27 10 3/mcL C) Basophil, Abs 0.00 Manual Performed By: #### CBC, LAC, AMM, MG, PHOS, CMP, TROPI, GFR, DIFF, MORPH #### [place] [address] .MORPH Collected: 03/09/2018 Status: F Source: [facility] 12:53 AM [facility] REPOSITORY TYPE CODE TESTS RESULT OUT OF REFERENCE UNITS RANGE LAB PLTE(LOINC ) Platelet Estimate Normal LAB ANIS(LOINC ) Anisocytosis Slight LAB POIK(LOINC ) Poik Slight LAB MACYT(LOIN C) Macrocytosis Slight LAB OVAL(LOINC ) Ovalocytes Few Performed By: #### CBC, LAC, AMM, MG, PHOS, CMP, TROPI, GFR, DIFF, MORPH #### [place] [address] XR CHEST 1 VIEW Observed: 03/09/2018 Status: F Source: [facility] 12:21 AM [facility] REPOSITORY ORIGINAL XR CHEST 1 VIEW CLINICAL STATEMENT: Shortness of breath and altered mental status. COMPARISON: [03/06/2018 FINDINGS: There is a right-sided chest port. The heart and mediastinal structures are normal . The lungs are clear except for some linear atelectasis in the LEFT base. The pulmonary vasculature is normal. There are no pleural effusions. The bones are unremarkable. IMPRESSION: No visible acute thoracic process Interpreted By: Josh Nur MD Preliminary Report By: Josh Nur MD Electronically Signed By: Josh Nur MD Dictated Date: 03/09/2018 12:56:47 AM Prelim Date: 03/09/2018 12:56:47 AM Sign Date: 03/09/2018 12:57:16 AM CBC Collected: 03/08/2018 Status: C Source: [facility] 5:34 AM [facility] REPOSITORY TYPE CODE TESTS RESULT OUT OF REFERENCE UNITS RANGE LAB WBC(LOINC) 4.60-10.80 10 3/mcL High WBC 11.70 LAB RBCCT(LOINC 4.20-5.40 10 6/mcL ) Low RBC 3.54 LAB HGB(LOINC) 12.0-16.0 G/dL Hgb 12.2 LAB HCT(LOINC) 37.0-47.0 % Low Hct 35.8 LAB MCV(LOINC) 80.0-94.0 fL High MCV 101.0 LAB MCH(LOINC) 27.0-31.2 pg High MCH 34.6 LAB MCHC(LOINC) 33.0-37.0 G/dL MCHC 34.2 LAB RDW(LOINC) 11.5-14.5 % High RDW 14.7 LAB PLT(LOINC) 130-400 10 3/mcL Platelet 299 LAB MPV(LOINC) 7.4-10.4 fL Low MPV 6.9 Performed By: #### CBC, DIFF, MORPH #### [place] [address] .MANUAL DIFF Collected: 03/08/2018 Status: F Source: [facility] 5:34 AM [facility] REPOSITORY TYPE CODE TESTS RESULT OUT OF REFERENCE UNITS RANGE LAB NEUM(LOINC 37.0-80.0 % ) Neutrophil %, 80.0 Manual LAB LYMM(LOINC 10.0-50.0 % ) Low Lymphocyte %, 4.0 Manual LAB MONM(LOINC 1.7-13.0 % ) Monocyte %, Manual 2.0 LAB EOM(LOINC) 0.0-7.0 % Eosinophil %, 0.0 Manual LAB BASM(LOINC 0.0-2.5 % ) Basophil %, Manual 0.0 LAB BAND(LOINC 0.0-5.0 % ) Bands High 14.0 LAB ANEUM(LOIN 2.85-6.16 10 3/mcL C) High Neutrophil, Abs 10.80 Manual LAB ABLYMM(JULIA 0.77-3.85 10 3/mcL NC) Low Lymphocyte, Abs 0.40 Manual LAB AMONM(LOIN 0.15-1.00 10 3/mcL C) Monocyte, Abs 0.50 Manual LAB AEOSM(LOIN 0.00-0.40 10 3/mcL C) Eosinophil, Abs 0.00 Manual LAB ABASM(LOIN 0.00-0.19 10 3/mcL C) Basophil, Abs 0.00 Manual Performed By: #### CBC, DIFF, MORPH #### [address] [address] .MORPH Collected: 03/08/2018 Status: F Source: [facility] 5:34 AM [facility] REPOSITORY TYPE CODE TESTS RESULT OUT OF REFERENCE UNITS RANGE LAB PLTE(LOINC) Platelet Normal Estimate Performed By: #### CBC, DIFF, MORPH #### [address] [address] ABG Collected: 03/07/2018 Status: F Source: [facility] 5:04 AM [facility] REPOSITORY TYPE CODE TESTS RESULT OUT OF REFERENCE UNITS RANGE LAB PH(LOINC) 7.35-7.45 pH 7.41 LAB PCO2(LOINC) 35.0-45.0 mmHg pCO2 38.4 LAB PO2(LOINC) 80.0-100.0 mmHg Low pO2 50.0 LAB HCO3(LOINC) 22.0-26.0 mmol/L HCO3 24.1 LAB TCO2(LOINC) 19-24 mmol/L High CO2 Totl 25 LAB BE(LOINC) -2.4-2.3 mmol/L Base Excess -1.0 LAB O2SAT(LOINC 95-98 % ) Low O2 Sat 86 Performed By: #### ABG #### [address] [address] Observed: 03/06/2018 Status: F Source: [facility] 11:40 AM [facility] REPOSITORY . MICRO - Microbiology PROCEDURE: Blood Culture (bacterial) [*1] SOURCE: Blood BODY SITE: COLLECTED DATE/TIME: 03/06/2018 11:40 EDT RECEIVED DATE/TIME: 03/06/2018 20:08 EDT START DATE/TIME: 03/06/2018 20:08 EDT FREE TEXT SOURCE: FINAL REPORTS Final Report [] Verified Date/Time/Personnel: 03/11/2018 20:59 EDT Blood Culture: No Growth at 5 days. PRELIMINARY REPORTS Preliminary Report [] Verified Date/Time/Personnel: 03/06/2018 20:59 EDT Culture has been received in lab and is no growth to date. Routine cultures are held for 5 days. Performing Locations *1: This test was performed at: [facility], [address] [place] [address], [address] [place] [address] Performed By: #### CBL #### [place] [address] CBC Collected: 03/06/2018 Status: C Source: [facility] 11:14 AM [facility] REPOSITORY TYPE CODE TESTS RESULT OUT OF REFERENCE UNITS RANGE LAB WBC(LOINC) 4.60-10.80 10 3/mcL High WBC 11.50 LAB RBCCT(LOINC 4.20-5.40 10 6/mcL ) Low RBC 3.57 LAB HGB(LOINC) 12.0-16.0 G/dL Hgb 12.4 LAB HCT(LOINC) 37.0-47.0 % Low Hct 36.5 LAB MCV(LOINC) 80.0-94.0 fL High MCV 102.2 LAB MCH(LOINC) 27.0-31.2 pg High MCH 34.6 LAB MCHC(LOINC) 33.0-37.0 G/dL MCHC 33.9 LAB RDW(LOINC) 11.5-14.5 % High RDW 15.3 LAB PLT(LOINC) 130-400 10 3/mcL Platelet 277 LAB MPV(LOINC) 7.4-10.4 fL Low MPV 7.1 Performed By: #### CBC, DIFF, MORPH #### [place] [address] [place], [place] [address] #### BMP, GFR #### [address] [address] BMP Collected: 03/06/2018 Status: F Source: [facility] 11:14 AM [facility] REPOSITORY TYPE CODE TESTS RESULT OUT OF REFERENCE UNITS RANGE LAB GLU(LOINC) 80-115 mg/dL Glucose High Level 125 LAB NA(LOINC) 136-145 mmol/L Sodium Level 141 LAB K(LOINC) 3.5-5.1 mmol/L Potassium Level 3.9 LAB CL(LOINC) 98-107 mmol/L Chloride 104 LAB CO2(LOINC) 23-31 mmol/L CO2 23 LAB EBAL(LOINC mEq/L ) Electrolyte Balance 14.0 LAB BUN(LOINC) 7-18 mg/dL BUN 9 LAB CRE(LOINC) 0.55-1.02 mg/dL Creatinine Lvl (s) 0.91 LAB BC(LOINC) 7-27 ratio BUN/Creatinine 10 Ratio LAB CA(LOINC) 8.4-10.2 mg/dL Calcium Lvl 8.8 Performed By: #### CBC, DIFF, MORPH #### [facility] [address] [place], [place] [address] #### BMP, GFR #### [address] [address] .GFR Collected: 03/06/2018 Status: F Source: [facility] 11:14 AM [facility]IT[facility] TYPE CODE TESTS RESULT OUT OF REFERENCE UNITS RANGE LAB GFRAA(LOINC ml/min/1.73 ) sqm GFR [address] [facility] Result Comment: GFR Population mean for , Non- Americans Ages 20-29 = 116 mL/min/1.73 sq.m. Ages 30-39 = 107 mL/min/1.73 sq.m. Ages 40-49 = 99 mL/min/1.73 sq.m. Ages 50-59 = 93 mL/min/1.73 sq.m. Ages 60-69 = 85 mL/min/1.73 sq.m. Ages 70+ = 75 mL/min/1.73 sq.m. Chronic Kidney Disease: Less than 60 mL/min/1.73 square meters End Stage Renal Disease: Less than 15 mL/min/1.73 square meters LAB GFRNO(LOINC) ml/min/1.73sqm GFR Non- 62 Result Comment: GFR Population mean for , Non- Americans Ages 20-29 = 116 mL/min/1.73 sq.m. Ages 30-39 = 107 mL/min/1.73 sq.m. Ages 40-49 = 99 mL/min/1.73 sq.m. Ages 50-59 = 93 mL/min/1.73 sq.m. Ages 60-69 = 85 mL/min/1.73 sq.m. Ages 70+ = 75 mL/min/1.73 sq.m. Chronic Kidney Disease: Less than 60 mL/min/1.73 square meters End Stage Renal Disease: Less than 15 mL/min/1.73 square meters Performed By: #### CBC, DIFF, MORPH #### [place] [address] [place], [place] [address] #### BMP, GFR #### [address] [address] .MANUAL DIFF Collected: 03/06/2018 Status: F Source: [facility] 11:14 AM [facility] REPOSITORY TYPE CODE TESTS RESULT OUT OF REFERENCE UNITS RANGE LAB NEUM(LOINC 37.0-80.0 % ) Neutrophil %, Manual 64.0 LAB LYMM(LOINC 10.0-50.0 % ) Lymphocyte %, Low Manual 5.0 LAB MONM(LOINC 1.7-13.0 % ) Monocyte %, Manual 7.0 LAB EOM(LOINC) 0.0-7.0 % Eosinophil %, Manual 0.0 LAB BASM(LOINC 0.0-2.5 % ) Basophil %, Manual 0.0 LAB BAND(LOINC 0.0-5.0 % ) Bands High 20.0 LAB META(LOINC % ) Metamyelocyte 4.0 LAB ANEUM(LOIN 2.85-6.16 10 3/mcL C) Neutrophil, Abs High Manual 9.80 LAB ABLYMM(JULIA 0.77-3.85 10 3/mcL NC) Lymphocyte, Abs Low Manual 0.40 LAB AMONM(LOIN 0.15-1.00 10 3/mcL C) Monocyte, Abs High Manual 1.30 LAB AEOSM(LOIN 0.00-0.40 10 3/mcL C) Eosinophil, Abs Manual 0.00 LAB ABASM(LOIN 0.00-0.19 10 3/mcL C) Basophil, Abs Manual 0.00 Performed By: #### CBC, DIFF, MORPH #### [place] [address] [place], [place] [address] #### BMP, GFR #### [address] [address] .MORPH Collected: 03/06/2018 Status: F Source: [facility] 11:14 AM [facility] REPOSITORY TYPE CODE TESTS RESULT OUT OF REFERENCE UNITS RANGE LAB PLTE(LOINC) Platelet Normal Estimate Performed By: #### CBC, DIFF, MORPH #### [facility] [address] [place], [place] [address] #### BMP, GFR #### [address] [address] TROP Collected: 03/06/2018 Status: F Source: [facility] 11:14 AM [facility] REPOSITORY TYPE CODE TESTS RESULT OUT OF REFERENCE UNITS RANGE LAB TROP(LOINC) 0.000-0.040 ng/mL Troponin <0.020 Result Comment: Troponin I reference range: 0.00-0.040 ng/mL Negative and non-diagnostic. >0.040 ng/mL Consistent with cardiac damage, increased clinical risk and possibility of myocardial infarction. Serial measurements, a rise & fall in test results, clinical history, appropriate symptoms and/or ECG changes may help assess possibility of ND. *Other non-acute coronary syndrome conditions such as CHF, myocarditis, pulmonary emboli, sepsis and cardiac surgery could result in myocardial damage and increased troponin levels. Performed By: #### TROP #### [place] [address] Observed: 03/06/2018 Status: F Source: [facility] 11:14 AM [facility] REPOSITORY . MICRO - Microbiology PROCEDURE: Blood Culture (bacterial) [*1] SOURCE: Blood BODY SITE: COLLECTED DATE/TIME: 03/06/2018 11:14 EDT RECEIVED DATE/TIME: 03/06/2018 20:08 EDT START DATE/TIME: 03/06/2018 20:08 EDT FREE TEXT SOURCE: FINAL REPORTS Final Report [] Verified Date/Time/Personnel: 03/11/2018 20:59 EDT Blood Culture: No Growth at 5 days. PRELIMINARY REPORTS Preliminary Report [] Verified Date/Time/Personnel: 03/06/2018 20:59 EDT Culture has been received in lab and is no growth to date. Routine cultures are held for 5 days. Performing Locations *1: This test was performed at: [address], [facility] , [facility] Performed By: #### CBL #### [place] [address] [place] [address] XR CHEST 1 VIEW Observed: 03/06/2018 Status: F Source: [facility] 10:31 AM [facility] REPOSITORY ORIGINAL XR CHEST 1 VIEW PORTABLE AP upright TIME: 10:26 AM CLINICAL STATEMENT: pain, shortness of breath COMPARISON: 10/31/2017 FINDINGS: The RIGHT chest port catheter is in unchanged position. Cardiomediastinal contours are normal. Aorta is atherosclerotic and tortuous. There are chronic interstitial markings bilaterally, great est in the lung bases. No focal consolidation or vascular congestion. No pleural effusion or pneumothorax is seen. Degenerative findings are noted in the spine and AC joint. IMPRESSION: No acute process. Chronic interstitial disease. I have personally reviewed the images of this examination and agree with the resident's findings and interpretation. Interpreted By: Sedrick Delgado MD Preliminary Report By: Ramy Lopez DO Electronically Signed By: Sedrick Delgado MD Dictated Date: 03/06/2018 10:50:03 AM Prelim Date: 03/06/2018 10:51:31 AM Sign Date: 03/06/2018 11:01:02 AM EMERGENCY DEPARTMENT Observed: 02/05/2018 Status: F Source: [facility] SUMMARY 8:05 PM [facility] REPOSITORY [facility] Medical Records Department [address] [place] [address] Emergency Department Summary 02/05/182001 MR#: [id number] Acct: [id number] Name: FRANCISCO HERNANDEZ Rep #: [id number] : 1950 68 From: Harshad Connors MD PCP: Vin Baca DO Status: REG ER - ER Visit Summary Date of Service: 02/05/18 Chief Complaint: Migraine History of Present Illness: The patient is a 68 F who presents with a migraine. She has a history of multiple similar prior episodes. She complains of a left-sided temporal headache which she currently rates as 7 out of 10. This is typical in character and location to her previous headaches. She also complains of nausea. It began about 5 hours prior to presentation and gradually worsened over the course of a couple of hours. Physical Examination: Afebrile vitals notable for heart rate 110 otherwise normal Heart regular rhythm tachycardia Scattered wheezing Abdomen soft Alert oriented no focal or lateralizing neurological deficits Test Results: Not indicated Emergency Department Course and Treatment: Patient states that normally she has had resolution of symptoms with Toradol Phenergan and DHE. I was somewhat concerned given her prior history of stroke with DHE. However the patient states that she has had this multiple times since her stroke without any adverse events. Patient was treated with Toradol Phenergan and DHE with complete resolution of symptoms and states I feel great on reevaluation. Patient discharged. Treatment Plan: [] Disposition: Discharge Impression: Migraine This note was generated with [employer] dictation software. It may contain incorrect words, spelling, and punctuation that were not noted in review of the chart prior to signing ED Disposition - Plan for ED Patient: Chief Complaint: Headache Referrals: Vin Baca DO [Primary Care Provider] - What to do if you have Problems For any increased pain, shortness of breath, bleeding, nausea or vomiting, chest pain, or any unexpected problems, contact your Primary Care Provider. Call [facility] ([phone]) or report to the closest Emergency Room. Call 911 if necessary. 02/05/182004 <Electronically signed by Harshad Connors MD> Date Harshad Connors MD Cosigner Signature (If Indicated): Date CC: Vin Baca DO DISCHARGE INSTRUCTION Observed: 02/05/2018 Status: F Source: [place] 8:05 PM [facility] REPOSITORY [facility] Medical Records Department [address] [place] [address] Discharge Instruction 02/05/182004 MR#: [id number] Acct: [id number] Name: FRANCISCO HERNANDEZ Jayjay Rep #: [id number] : 1950 68 From: Harshad Connors MD PCP: Vin Baca DO Status: REG ER ED Disposition - Plan for ED Patient: Chief Complaint: Headache Instructions: ED Headache Migraine Referrals: Vin Baca DO [Primary Care Provider] - What to do if you have Problems For any increased pain, shortness of breath, bleeding, nausea or vomiting, chest pain, or any unexpected problems, contact your Primary Care Provider. Call [facility] ([phone]) or report to the closest Emergency Room. Call 911 if necessary. 02/05/182004 <Electronically signed by Harshad Connors MD> Date Harshad Connors MD Cosigner Signature (If Indicated): Date CC: Vin Baca DO PULMONARY VISIT REPORT Observed: 12/30/2017 Status: F Source: [facility] 5:50 PM [facility] REPOSIT[facility] Pulmonary Medicine of [address] [place] [address] OFFICE VISIT Date of Service: 12/29/17 MR#: [id number] Acct: [id number] Name: FRANCISCO HERNANDEZ Rep #: [id number] : 1950 Provider: Faye Perez Age/Sex: 67/F [facility] Status: Signed Assessment AND Plan 1. Chronic obstructive pulmonary disease, unspecified COPD type J44.9 Plan Deteriorated. The patient does have some wheezing on exam today, this is likely attributed to the fact that she is not properly using her maintenance medication. She has been educated that maintenance medications should be 2 puffs twice daily. She has been encouraged to 100% compliance over the next 2 weeks, if her wheezing does not dissipate she has been encouraged to contact the office and give us an update. Not treating for exacerbation, ordering prednisone or antibiotics at this time. No change in maintenance medications. No additional testing at this time. Follow-up with Dr. Diallo in 3 months. She has been encouraged to contact the office with any new or worsening symptoms in the meantime. 2. Pulmonary fibrosis J84.10 Plan Continue supportive measures, encourage oxygen if saturation is less than 89%. Follow-up with Dr. Diallo in 3 months. No additional testing at this time. 3. RENNY (obstructive sleep apnea) G47.33 Plan She is compliant with CPAP therapy and is benefiting from is used. She did have some noted nocturnal hypoxia on recent testing while on Pap therapy. If the test results and going to add 2 L of nasal cannula oxygen bleed into her CPAP. The patient reports that she currently has an oxygen concentrator as well as the appropriate tubing to accommodate this order. The reports that he will make this change. 4. Tobacco abuse Z72.0 Plan Continue to encourage smoking cessation. Reinforced the fact that patient should not be smoking while on oxygen or near oxygen. She conveys understanding. Follow-up with Dr. Diallo in 3 months. Plan Detail Follow Up 3 Months ([facility]) HPI 3 M FU: Chief Complaint: cough HPI Comments Details: This patient presents the office in follow-up on her chronic respiratory failure and COPD, as well as obstructive sleep apnea. She is in a wheelchair, accompanied today by her . He has not been seen in the ED urgent care for respiratory illnesses since her last office visit. He has not required any antibiotics or prednisone for any breathing problems. He is currently on room air. She admits that she uses Symbicort one time most days. She also admits that she forgets frequently to use it, and is not good about rinsing her mouth out after using. She rarely uses her ProAir rescue inhaler, states that the rescue inhaler and the albuterol nebulizer did not seem to provide her with much relief from her shortness of breath when she experienced it. Her pulmonary function test did note that she has irreversible airway disease, therefore a rescue inhaler is not likely effective for her. She reports that she uses her CPAP every night and has no issues. She denies any difficulty with nocturia, dry mouth or snoring through the mask. She wears a device for at least 8 hours nightly. She does feel rested upon arising in the morning. She continues to smoke 1 pack per day. She admits that she tried to quit and was unsuccessful. She denies any productive cough, hemoptysis. She does continue to experience some shortness of breath on exertion, this has not worsened. She denies any chest pain or palpitations. She has not experienced any fever, chills or body aches. See complete review of systems. Overall she states that she is feeling well. Intake Vital Signs12/29/17 Height 5 ft 8 in 12/29/17 Weight: 131 lb 12/29/17 Body Mass Index (BMI) 19.9 12/29/17 Blood Pressure Location Lt brachial Intake Visit Reasons: 3 M FU [facility] Vendor: Pérez Accompanied by: Allergies Sulfa (Sulfonamide Antibiotics) Adverse Reaction (Intermediate, Verified 12/29/17 12:57) Other - Messes with blood counts prochlorperazine edisylate [From Compazine] Adverse Reaction (Mild, Verified 12/29/17 12:57) Other - Restless legs prochlorperazine maleate [From Compazine] Adverse Reaction (Mild, Verified 12/29/17 12:57) Other - Restless legs Medications Levothyroxine [Synthroid] 150 mcg PO DAILY 08/23/16 [History Confirmed 12/29/17] Pantoprazole Sodium [Protonix] 40 mg PO DAILY 08/23/16 [History Confirmed 12/29/17] albuterol sulfate HFA 90 mcg/actuation aerosol inhaler 2 puff INHALATION Q4H PRN g 06/16/17 [History Confirmed 12/29/17] ipratropium-albuterol 0.5 mg-3 mg(2.5 mg base)/3 mL nebulization soln 3 ml INHALATION Q4H PRN ml 06/16/17 [History Confirmed 12/29/17] budesonide-formoterol HFA 160 mcg-4.5 mcg/actuation aerosol inhaler 2 inh INHALATION Q12H #10.2 g 09/28/17 [Rx Confirmed 12/29/17] Cyclobenzaprine [Flexeril] 10 mg PO TID PRN PRN 12/14/17 [History Confirmed 12/29/17] Divalproex Sodium [Depakote] 500 mg PO BIDCM 12/14/17 [History Confirmed 12/29/17] Risperidone [Risperdal] 0.5 mg PO DAILY 12/14/17 [History Confirmed 12/29/17] Risperidone [Risperdal] 1 mg PO QHS 12/14/17 [History Confirmed 12/29/17] Ropinirole HCl [Requip] 0.5 mg PO QHS 12/14/17 [History Confirmed 12/29/17] Sertraline HCl [Zoloft] 50 mg PO DAILY 12/14/17 [History Confirmed 12/29/17] Valproic Acid [Depakene] 250 mg PO QHS 12/14/17 [History Confirmed 12/29/17] melatonin 10 mg capsule 10 mg PO HS 12/29/17 [History Confirmed 12/29/17] [facility] Medical History Encephalopathy (Acute) Leukocytosis (Acute) Hypotension (Acute) Decreased level of consciousness (Acute) Respiratory failure with hypercapnia (Acute) MRSA pneumonia (Acute) Acute delirium (Acute) Headache (Acute) RENNY (obstructive sleep apnea) (Chronic) Mild diastolic dysfunction (Chronic) Depression (Chronic) Restless leg (Chronic) HTN (hypertension) (Chronic) Presbycusis of both ears (Chronic) Adrenal insufficiency (Chronic) COPD (chronic obstructive pulmonary disease) (Chronic) Hypothyroidism (Chronic) Pulmonary fibrosis (Chronic) COPD with acute exacerbation (Acute) Gallstones (Acute) Septic shock (Acute) UTI (urinary tract infection) (Acute) Anxiety (Chronic) Bronchitis (Chronic) Carpal tunnel syndrome (Chronic) Cataract (Chronic) Chronic back pain (Chronic) Migraine (Chronic) Osteopenia (Chronic) Solitary pulmonary nodule (Chronic) Stage 2 moderate COPD by GOLD classification (Chronic) Tobacco abuse (Chronic) Acute respiratory failure (Resolved) Hypersomnia (Resolved) Surgical History Cochlear implant in place (Resolved) H/O adenoidectomy (Resolved) H/O: hysterectomy (Resolved) History of cataract surgery (Resolved) History of cholecystectomy (Resolved) History of lung biopsy (Resolved) Hx of appendectomy (Resolved) Hx of left knee surgery (Resolved) lipoma removal (Resolved) vocal nodules removed (Resolved) Family History Mother Hypertension CVA (cerebral vascular accident) Father CVA (cerebral vascular accident) Hypertension Sister Colon cancer Grandfather Hypertension Heart disease Social History Smoking Status: Current every day smoker second hand exposure: No alcohol intake: never substance use type: does not use Review of Systems Const CONSTITUTIONAL: Negative anorexia, body ache, chills, daytime sleepiness, fever(s), night sweats, oral thrush, stops breathing during sleep, weight loss, sleeping in chair, fatigue, weight loss, weight gain, frequent colds, seasonal allergies, other, headache(s) or orthopnea EETM Ear Nose Throat Mouth: Positive hard of hearing; negative hoarseness, dry mouth in morning, change in vision, itchy eyes, eye pain, swallowing Difficulty, ear pain, nose bleed, headache(s), mouth pain, nasal congestion, nasal discharge, post nasal drip, sinus pain, sinus pressure, sore throat or other Cardio Cardiovascular: Negative chest pain, chest pain at rest, chest pain with activity, irregular heart rhythm, edema, shortness of breath when lying down, palpitations, murmur or other Resp Respiratory: Positive as per HPI, shortness of breath, cough cough: Positive non-productive and inhalers; negative pain with cough, wheezing, chest congestion, chest tightness, pain on inspiration, increase use of rescue inhalers, snoring, apnea or other Gastro Gastrointestional: Negative bloody stools, change in appetite, difficulty swallowing, reflux, hematemesis, melena stool, loose stool, constipation or other Genitourinary: Negative blood in urine, nocturia, pain with urination or other Musc Musculoskeletal: Negative body pain, back pain, neck pain or other Skin/Breast Skin/Breast: Negative dry skin, itching, rash, unusual bruising, breast lump or other Neuro Neurological: Negative restless legs, confusion, weakness or other Psych Psychocological: Negative abnormal sleep pattern, anxiety, thoughts of hurting self/others, hopelessness or other Lymph Lymphatic: Negative easy bleeding, easy bruising, swollen lymph nodes or other Exam Const Constitutional: Positive conversant, cooperative, in no acute respiratory distress, well developed, well nourished, good hygiene and frail appearing Head Head: Positive normocephalic and atraumatic; negative cyanosis of lips/distal nose Eyes Eye: Positive clear conjunctiva and nystagmus; negative scleral abnormality Ears Ear: Positive hard of hearing and external ears normal Nose Nose: Positive external nose normal and no nasal discharge; negative epistaxis Mouth Mouth: Positive oral mucosae normal, no lesions, poor dentition and crowded posterior oropharynx; negative post nasal drip, malodorous breath or oral thrush present Mallampati Score: III: Mallampati Score Neck Neck: Positive normal visual inspection, full ROM and trachea midline; negative lymphadenopathy, JVD or tender Chest Wall Chest: Positive normal inspection of the chest and symmetric chest movement; negative increased A/P diameter Resp lung sounds: Positive diminished, wheezes, normal expiratory time and normal respiratory effort; negative rhonchi, rales or dullness to percussion Cardio Cardiac: Positive regular rate, regular rhythm, S1 normal and S2 normal; negative murmur GI GI: Positive normal to inspection and normal bowel sounds; negative distended Genitourinary: Positive deferred Musc Musculoskeletal: Positive ROM normal and in a wheelchair; negative kyphosis or scoliosis Skin Pulmonary Skin Exam: Positive intact and dermal atrophy; negative rash, lesion, ulcers, erythema or scaly Pulses Pulse: Yes pulses normal x4 extremities Extremities Extremities: Yes capillary refill normal, No clubbing, No cyanosis, No edema, No stasis dermatitis Neuro Neurologic: Yes conversant, Yes no focal neuro deficits, Yes normal concentration, Yes understands questions, Yes cooperative, Yes normal cognition, Yes normal coordination Lymph Lymphatic: No lymphadenopathy, No tenderness, No cervical adenopathy, No axillary adenopathy Psych Appearance: Positive grossly normal, eye contact and well kempt Mental Status: Positive mental status grossly normal Mood: Positive congruent mood Affect: Positive normal affect Coding Level of Care Code Off vis,est,level 3 Diagnoses Chronic obstructive pulmonary disease, unspecified COPD type J44.9 COPD type: unspecified COPD Pulmonary fibrosis J84.10 RENNY (obstructive sleep apnea) G47.33 Tobacco abuse Z72.0 12/30/17 1750 <Electronically signed by Faye HERNANDESC> Date Faye HERNANDESC Cosigner Signature: Date (if applicable) CC: Vin Baca DO, CMP Collected: 12/26/2017 Status: F Source: [facility] 9:18 AM [facility] REPOSITORY TYPE CODE TESTS RESULT OUT OF REFERENCE UNITS RANGE LAB GLU(LOINC) 80-115 mg/dL Glucose Level 101 LAB NA(LOINC) 136-146 mEq/L Sodium Level 142 LAB K(LOINC) 3.5-5.1 mEq/L Potassium Level 4.2 LAB CL(LOINC) 98-107 mEq/L Chloride High 110 LAB CO2(LOINC) 23-31 mEq/L CO2 24 LAB EBAL(LOINC mEq/L ) Electrolyte Balance 8.0 LAB BUN(LOINC) 7.0-18.0 mg/dL BUN 16.2 LAB CRE(LOINC) 0.6-1.2 mg/dL Creatinine Lvl (s) 0.7 LAB BC(LOINC) 7-27 ratio BUN/Creatinine 23 Ratio LAB CA(LOINC) 8.4-10.2 mg/dL Calcium Lvl 8.8 LAB PROT(LOINC 6.0-8.3 G/dL ) Total Protein 6.3 LAB ALB(LOINC) 3.4-4.8 G/dL Albumin Level 3.9 LAB GLB(LOINC) G/dL Globulin 2.4 LAB AG(LOINC) 1.1-2.5 ratio A/G Ratio 1.6 LAB BILT(LOINC 0.2-1.0 mg/dL ) Bili Total 0.3 LAB AP(LOINC) 40-135 IU/L Alk Phos 96 LAB AST(LOINC) 10-40 IU/L AST/SGOT 11 LAB ALT(LOINC) 10-35 IU/L ALT/SGPT 11 Performed By: #### CMP, GFR, TSH, FT3 #### [address] [address] #### CORTA #### [address] [address] .GFR Collected: 12/26/2017 Status: F Source: [facility] 9:18 AM [facility] REPOSITORY TYPE CODE TESTS RESULT OUT OF REFERENCE UNITS RANGE LAB GFRAA(LOINC ml/min/1.73 ) sqm GFR >60 [place] Result Comment: GFR Population mean for , Non- Americans Ages 20-29 = 116 mL/min/1.73 sq.m. Ages 30-39 = 107 mL/min/1.73 sq.m. Ages 40-49 = 99 mL/min/1.73 sq.m. Ages 50-59 = 93 mL/min/1.73 sq.m. Ages 60-69 = 85 mL/min/1.73 sq.m. Ages 70+ = 75 mL/min/1.73 sq.m. Chronic Kidney Disease: Less than 60 mL/min/1.73 square meters End Stage Renal Disease: Less than 15 mL/min/1.73 square meters LAB GFRNO(LOINC) ml/min/1.73sqm GFR Non- >60 Result Comment: GFR Population mean for , Non- Americans Ages 20-29 = 116 mL/min/1.73 sq.m. Ages 30-39 = 107 mL/min/1.73 sq.m. Ages 40-49 = 99 mL/min/1.73 sq.m. Ages 50-59 = 93 mL/min/1.73 sq.m. Ages 60-69 = 85 mL/min/1.73 sq.m. Ages 70+ = 75 mL/min/1.73 sq.m. Chronic Kidney Disease: Less than 60 mL/min/1.73 square meters End Stage Renal Disease: Less than 15 mL/min/1.73 square meters Performed By: #### CMP, GFR, TSH, FT3 #### [address] [address] #### CORTFlorence #### [place] [address] TSH Collected: 12/26/2017 Status: F Source: [facility] 9:18 AM [facility] REPOSITORY TYPE CODE TESTS RESULT OUT OF RANGE REFERENCE UNITS LAB TSH(LOINC) 0.27-4.20 mcIU/mL Low TSH 0.02 Result Comment: Below normal(expected)range Performed By: #### CMP, GFR, TSH, FT3 #### [address] [address] #### CORTA #### [place] [id number] FT3 Collected: 12/26/2017 Status: F Source: [facility] 9:18 AM [facility] REPOS[facility] TYPE CODE TESTS RESULT OUT OF RANGE REFERENCE UNITS LAB FT3(LOINC) 2.3-4.0 pg/mL Low Free T3 2.2 Performed By: #### CMP, GFR, TSH, FT3 #### [place] [address] [place], [place] [address] #### CORTA #### [facility] [address] [place] [address] CORTA Collected: 12/26/2017 Status: F Source: [facility] 9:18 AM [facility] REPOSITORY TYPE CODE TESTS RESULT OUT OF RANGE REFERENCE UNITS LAB CORTA(LOINC 6.5-26.0 mcg/dL ) Low Cortisol, 3.4 AM Performed By: #### CMP, GFR, TSH, FT3 #### [place] [address] [place], [place] [address] #### CORTA #### [facility] [address] [place] [address] EMERGENCY DEPARTMENT Observed: 12/14/2017 Status: F Source: [facility] SUMMARY 6:53 PM [facility] REPOSITORY [facility] Medical Records Department [address] [place] [address] Emergency Department Summary 12/14/17 1747 MR#: [id number] Acct: [id number] Name: FRANCISCO HERNANDEZ Rep #: [id number] : 1950 67 From: Kassie Guzmán MD PCP: Vin Baca DO Status: REG ER - ER Visit Summary Date of Service: 12/14/17 Chief Complaint: Headache History of Present Illness: The patient is a 67 F presenting with headache. She states it started gradually. Similar to her previous migraine headaches. She has nausea with no vomiting. No fever. She saw her neurologist yesterday and had her Depakote level checked. She was doing well at that time. Headache started today. She states that typically Toradol, DHE 45, Phenergan improve her symptoms. Physical Examination: Vitals are stable. Patient is afebrile. Alert no acute distress. HEENT exam is unremarkable. Neck is supple. No meningismus Lungs are clear and equal bilaterally. Heart is regular rate and rhythm. Abdomen is soft nontender nondistended. Extremities are unremarkable. Skin is warm and dry. No focal neurologic deficit. Remainder of exam is unremarkable. Emergency Department Course and Treatment: Patient is given Toradol, Phenergan, DHE 45. On reevaluation, patient is feeling much improved. She is requesting to go home. Advised to follow-up with her neurologist. Advised return to the ED for worsening complaints. Disposition: Discharge home Impression: Migraine headache This note was generated with Feedzai dictation software. It may contain incorrect words, spelling, and punctuation that were not noted in review of the chart prior to signing ED Disposition - Plan for ED Patient: Chief Complaint: Headache Instructions: ED Headache Migraine Referrals: Vin Baca DO [Primary Care Provider] - What to do if you have Problems For any increased pain, shortness of breath, bleeding, nausea or vomiting, chest pain, or any unexpected problems, contact your Primary Care Provider. Call [facility] ([phone]) or report to the closest Emergency Room. Call 911 if necessary. 12/14/171852 <Electronically signed by Kassie Guzmán MD> Date Kassie Guzmán MD Cosigner Signature (If Indicated): Date CC: Vin Baca DO DISCHARGE INSTRUCTION Observed: 12/14/2017 Status: F Source: [facility] 6:51 PM [facility] REPOSITORY [facility] Medical Records Department [address] [place] [address] Discharge Instruction 12/14/171850 MR#: [id number] Acct: [id number] Name: DAVIDFRANCISCO Jayjay Rep #: [id number] : 1950 67 From: Kassie Guzmán MD PCP: Vin Baca DO Status: REG ER ED Disposition - Plan for ED Patient: Chief Complaint: Headache Instructions: ED Headache Migraine Referrals: Vin Baca DO [Primary Care Provider] - What to do if you have Problems For any increased pain, shortness of breath, bleeding, nausea or vomiting, chest pain, or any unexpected problems, contact your Primary Care Provider. Call [facility] ([phone]) or report to the closest Emergency Room. Call 911 if necessary. 12/14/171850 <Electronically signed by Kassie Guzmán MD> Date Kassie Guzmán MD Cosigner Signature (If Indicated): Date CC: Vin Phuong DO AMMONIA Collected: 12/08/2017 Status: F Source: [facility] 4:07 PM [facility] REPOSITORY Order Comment: CALL RESULTS [id number] FAX RESULTS [id number] TYPE CODE TESTS RESULT OUT OF RANGE REFERENCE UNITS LAB L503.5510 11-32 umol/L Normal AMMONIA 12.0 Performed By: #### L503.5510 #### [facility] [address] [place], [place], [address] VALPR Collected: 12/08/2017 Status: F Source: [facility] 3:49 PM [facility] REPOSIT[facility] TYPE CODE TESTS RESULT OUT OF REFERENCE UNITS RANGE LAB LD017(LOIN C) LDose Valproic Unknown Acid: LAB VALP(LOINC 50.0-100.0 mcg/mL ) Valproic Acid 55.4 Lvl Performed By: #### VALPR, AMM #### [address] [address] #### RAMONITA #### [place] [address] RAMONITA Collected: 12/08/2017 Status: F Source: [facility] 3:49 PM [facility] REPOSIT[facility] TYPE CODE TESTS RESULT OUT OF RANGE REFERENCE UNITS LAB RAMONITA(LOINC) Neg 40 RAMONITA Neg 40 Performed By: #### VALPR, AMM #### [address] [address] #### RAMONITA #### [address] [address] AMM Collected: 12/08/2017 Status: F Source: [facility] 3:49 PM [facility] REPOSITORY TYPE CODE TESTS RESULT OUT OF REFERENCE UNITS RANGE LAB AMM(LOINC) Ammonia See Below Result Comment: See Seperate Report Performed By: #### VALPR, AMM #### [facility] [address] [place], [place] [address] #### RAMONITA #### [facility] [address] [place] [address] XR SPINE CERVICAL Observed: 11/18/2017 Status: F Source: [facility] MINIMUM 4 VIEWS 11:46 AM [facility] REPOSITORY ORIGINAL XR SPINE CERVICAL MINIMUM 4 VIEWS CLINICAL STATEMENT: pain COMPARISON: MRI cervical spine 03/13/2007 FINDINGS: The cervical spine is imaged from C1 through C7. There is fusion of C6 and C7 similar in appearance to prior MRI. Alignment appears similar to the prior exam. There are degenerative changes mo st prominent at C5-C6. No prevertebral soft tissue swelling. No traumatic malalignment. The odontoid appears intact on open-mouth view although the tip is obscured which limits evaluation. The oblique i mages demonstrate the neural foramen to a patent bilaterally with areas of narrowing bilaterally. Multilevel facet arthropathy seen. IMPRESSION: Multilevel degenerative changes. Interpreted By: Janiya Schrader Preliminary Report By: Janiya Schrader Electronically Signed By: Janiya Schrader Dictated Date: 11/18/2017 1:44:02 PM Prelim Date: 11/18/2017 1:44:02 PM Sign Date: 11/18/2017 1:46:35 PM EMERGENCY DEPARTMENT Observed: 11/16/2017 Status: F Source: [facility] SUMMARY 12:59 AM [facility] REPOSITORY [facility] Medical Records Department [address] [place] [address] Emergency Department Summary 11/15/17 2043 MR#: [id number] Acct: [id number] Name: FRANCISCO HERNANDEZ Rep #: [id number] : 1950 67 From: Marin Kraft MD PCP: Vin Baca DO Status: DEP ER - ER Visit Summary Date of Service: 11/15/17 Chief Complaint: Headache History of Present Illness: The patient is a [address] Baca. She reports that she has a headache that began yesterday. Is gradually gotten worse. Is a throbbing pains 10 at 10 severity. Is worsened by light or movement. She reports that it was transient relieved by rizatriptan. She has had nausea without vomiting. She denies any recent trauma to her head. No fever or chills. Patient reports that she was seen in the emergency department yesterday was treated Toradol, DHE, and Phenergan. Had complete resolution of her headache. However, it returned this morning is gradually worsened throughout the day. Physical Examination: Vitals: Stable. Afebrile. General: Well-nourished and well-developed. Head: Normocephalic atraumatic. Neck: Supple, no lymphadenopathy. No JVD. Nontender. Cardiovascular: Regular rate and rhythm. No murmurs. Respiratory: No respiratory distress. Clear to auscultation bilaterally. Abdominal: Soft, nontender, nondistended, normal bowel sounds. No guarding, rebound, or peritoneal signs. Back: Nontender. Extremities: Nontender, no edema. Skin: Normal color, no rash. Neurologic: Alert and oriented 3. Cranial nerves II through XII are intact. Normal strength and sensation. Psych: Normal affect. Emergency Department Course and Treatment: Patient was given DHE, Toradol, Phenergan, and dexamethasone. On repeat exam she reports her headache is completely resolved. Treatment Plan: Patient will be discharged instructions to follow-up with neurologist in 1-2 days if not improving. Disposition: To home in improved and stable condition. Impression: 1. Migraine headache. This note was generated with Feedzai dictation software. It may contain incorrect words, spelling, and punctuation that were not noted in review of the chart prior to signing ED Disposition - Plan for ED Patient: Disposition: Home or Assisted Living Chief Complaint: Headache Instructions: ED Headache Migraine Referrals: Vin Baca, [Primary Care Provider] - 1-2 Days if not improving What to do if you have Problems For any increased pain, shortness of breath, bleeding, nausea or vomiting, chest pain, or any unexpected problems, contact your Primary Care Provider. Call [facility] ([phone]) or report to the closest Emergency Room. Call 911 if necessary. 11/16/17 0059 <Electronically signed by Marin Kraft MD> Date Marin Kraft MD Cosigner Signature (If Indicated): Date CC: Vin Baca DO EMERGENCY DEPARTMENT Observed: 11/14/2017 Status: F Source: [facility] SUMMARY 11:35 PM [facility] REPOSITORY [facility] Medical Records Department [address] [place] [address] Emergency Department Summary 11/14/17 1725 MR#: [id number] Acct: [id number] Name: FRANCISCO HERNANDEZ Rep #: [id number] : 1950 67 From: Josh Bermudez MD PCP: Vin Baca DO Status: DEP ER - ER Visit Summary Date of Service: 11/14/17 Chief Complaint: Headache History of Present Illness: The patient is a 67 F resents to the emergency department with headache. Patient has a history of migraine. She states normally, since the past few years, she does not get them very frequently. In fact, last when she had was just about a year ago. She describes this is her normal headache. She is prescription pressure behind her right eye into the back of her head. It is associated with photophobia and nausea. She denies any trauma. She denies any carbon monoxide exposure. She has tried some Tylenol at home with little relief. She is not on any migraine abortive medications at home. She denies any change in speech, change in vision, trouble with balance, or any other systemic symptoms. Physical Examination: Well-appearing patient is in no acute distress. Head is normocephalic, atraumatic. Pupils equal round reactive, extraocular muscles intact. There is no temporal artery tenderness. There is no vesicular rash. Neck supple. Kernig's and Brudzinski's are negative. Heart regular rate and rhythm. Lungs clear, chest nontender. Abdomen soft, nontender, nondistended. Neuro exam displays no focal or lateralizing deficit. 2+ symmetric lower extremity reflexes. No clonus. No ataxia or gait abnormality. Test Results: [] Emergency Department Course and Treatment: She presents with her normal migraine. She is not meningitic. Is not encephalopathic. She was treated with dihydroergotamine, Toradol, and Phenergan. Within an hour, she has had total resolution of her headache. At this time, I do feel that she is safe for outpatient therapy. The patient will be discharged home. Treatment Plan: [] Disposition: Charge Impression:. Migraine headache-resolved This note was generated with [employer] dictation software. It may contain incorrect words, spelling, and punctuation that were not noted in review of the chart prior to signing ED Disposition - Plan for ED Patient: Disposition: Home or Assisted Living Chief Complaint: Headache Instructions: ED Headache Migraine Referrals: Vin Bcaa, DO [Primary Care Provider] - What to do if you have Problems For any increased pain, shortness of breath, bleeding, nausea or vomiting, chest pain, or any unexpected problems, contact your Primary Care Provider. Call [facility] ([phone]) or report to the closest Emergency Room. Call 911 if necessary. 11/14/17 6780 <Electronically signed by Josh Bermudez MD> Date Josh Bermudez MD Cosigner Signature (If Indicated): Date CC: Vin Baca DO PHV Collected: 11/01/2017 Status: F Source: [facility] 7:15 AM [facility] TYPE CODE TESTS RESULT OUT OF REFERENCE UNITS RANGE LAB PHV(LOINC) 7.35-7.45 Low pH Venous 7.28 Performed By: #### PHV #### [place] [address] CBC Collected: 11/01/2017 Status: F Source: [facility] 7:15 AM [facility] TYPE CODE TESTS RESULT OUT OF REFERENCE UNITS RANGE LAB WBC(LOINC) 4.60-10.80 10 3/mcL High WBC 12.90 LAB RBCCT(LOINC 4.20-5.40 10 6/mcL ) Low RBC 3.47 LAB HGB(LOINC) 12.0-16.0 G/dL Low Hgb 10.5 LAB HCT(LOINC) 37.0-47.0 % Low Hct 31.8 LAB MCV(LOINC) 80.0-94.0 fL MCV 91.4 LAB MCH(LOINC) 27.0-31.2 pg MCH 30.3 LAB MCHC(LOINC) 33.0-37.0 G/dL MCHC 33.1 LAB RDW(LOINC) 11.5-14.5 % High RDW 16.8 LAB PLT(LOINC) 130-400 10 3/mcL Platelet 219 LAB MPV(LOINC) 7.4-10.4 fL MPV 7.5 Performed By: #### CBC, ADIFF, ANEU, MG, GFR, BMP #### [address] [address] .AUTO DIFF Collected: 11/01/2017 Status: F Source: [facility] 7:15 AM [facility] TYPE CODE TESTS RESULT OUT OF REFERENCE UNITS RANGE LAB TIANA(LOINC) 37.0-80.0 % High Neutrophil % 96.0 LAB LYM(LOINC) 10.0-50.0 % Low Lymphocyte % 3.0 LAB MON(LOINC) 1.7-13.0 % Low Monocyte % 1.0 LAB EO(LOINC) 0.0-7.0 % Eosinophil % 0.0 LAB BAS(LOINC) 0.0-2.5 % Basophil % 0.0 LAB ABLYM(LOIN 0.77-3.85 10 3/mcL C) Low Lymphocyte, 0.40 Absolute LAB RIVERA(LOINC 0.15-1.00 10 3/mcL ) Low Monocyte, 0.10 Absolute LAB AEOS(LOINC 0.00-0.40 10 3/mcL ) Eosinophil, 0.00 Absolute LAB ABAS(LOINC 0.00-0.19 10 3/mcL ) Basophil, 0.00 Absolute Performed By: #### CBC, ADIFF, ANEU, MG, GFR, BMP #### [address] [address] .NEUABS Collected: 11/01/2017 Status: F Source: [facility] 7:15 AM [facility] REPOS[facility] TYPE CODE TESTS RESULT OUT OF REFERENCE UNITS RANGE LAB ANEU(LOINC) 2.85-6.16 10 3/mcL High Neutrophil, 12.40 Absolute Performed By: #### CBC, ADIFF, ANEU, MG, GFR, BMP #### [place] [address] [place], [place] [address] MG Collected: 11/01/2017 Status: F Source: [facility] 7:15 AM [facility] REPOS[facility] TYPE CODE TESTS RESULT OUT OF REFERENCE UNITS RANGE LAB MG(LOINC) 1.7-2.5 mg/dL Magnesium Lvl 2.1 Performed By: #### CBC, ADIFF, ANEU, MG, GFR, BMP #### [place] [address] [place], [place] [address] .GFR Collected: 11/01/2017 Status: F Source: [facility] 7:15 AM [facility] REPOSITORY TYPE CODE TESTS RESULT OUT OF REFERENCE UNITS RANGE LAB GFRAA(LOINC ml/min/1.73 ) sqm GFR [address] Result Comment: GFR Population mean for , Non- Americans Ages 20-29 = 116 mL/min/1.73 sq.m. Ages 30-39 = 107 mL/min/1.73 sq.m. Ages 40-49 = 99 mL/min/1.73 sq.m. Ages 50-59 = 93 mL/min/1.73 sq.m. Ages 60-69 = 85 mL/min/1.73 sq.m. Ages 70+ = 75 mL/min/1.73 sq.m. Chronic Kidney Disease: Less than 60 mL/min/1.73 square meters End Stage Renal Disease: Less than 15 mL/min/1.73 square meters LAB GFRNO(LOINC) ml/min/1.73sqm GFR Non- >60 Result Comment: GFR Population mean for , Non- Americans Ages 20-29 = 116 mL/min/1.73 sq.m. Ages 30-39 = 107 mL/min/1.73 sq.m. Ages 40-49 = 99 mL/min/1.73 sq.m. Ages 50-59 = 93 mL/min/1.73 sq.m. Ages 60-69 = 85 mL/min/1.73 sq.m. Ages 70+ = 75 mL/min/1.73 sq.m. Chronic Kidney Disease: Less than 60 mL/min/1.73 square meters End Stage Renal Disease: Less than 15 mL/min/1.73 square meters Performed By: #### CBC, ADIFF, ANEU, MG, GFR, BMP #### [place] [address] [place], [place] [address] BMP Collected: 11/01/2017 Status: F Source: [facility] 7:15 AM [facility] REPOS[facility]ORY TYPE CODE TESTS RESULT OUT OF REFERENCE UNITS RANGE LAB GLU(LOINC) 80-115 mg/dL Glucose High Level 122 LAB NA(LOINC) 136-146 mEq/L Sodium Level 139 LAB K(LOINC) 3.5-5.1 mEq/L Potassium Level 4.2 LAB CL(LOINC) 98-107 mEq/L Chloride High 113 LAB CO2(LOINC) 23-31 mEq/L Low CO2 21 LAB EBAL(LOINC mEq/L ) Electrolyte Balance 5.0 LAB BUN(LOINC) 7.0-18.0 mg/dL BUN 13.2 LAB CRE(LOINC) 0.6-1.2 mg/dL Low Creatinine Lvl (s) 0.5 LAB BC(LOINC) 7-27 ratio BUN/Creatinine 26 Ratio LAB CA(LOINC) 8.4-10.2 mg/dL Low Calcium Lvl 8.2 Performed By: #### CBC, ADIFF, ANEU, MG, GFR, BMP #### [address] [address] Observed: 11/01/2017 Status: F Source: [facility] 12:12 AM [facility] REPOSITORY . MICRO - Microbiology PROCEDURE: Streptococcus Pneumoniae Urine Antig [^1 *1] SOURCE: Urine BODY SITE: COLLECTED DATE/TIME: 11/01/2017 00:12 EDT RECEIVED DATE/TIME: 11/01/2017 15:01 EDT START DATE/TIME: 11/01/2017 15:01 EDT FREE TEXT SOURCE: FINAL REPORTS Final Report [] Verified Date/Time/Personnel: 11/01/2017 15:15 EDT Presumptive negative for pneumococcal pneumonia, suggesting no current or recent pneumococcal infection. Infection due to Strep pneumoniae cannot be ruled out since the antigen present in the sample may be below the detection limit of the test. Interpretive Data ^1: Streptococcus Pneumoniae Urine Antig This test has not been evaluated on patients taking antibiotics for greater than 24 hours or on patients who have recently completed an antibiotic regimen. The accuracy of this test has not been proven in young children. Performing Locations *1: This test was performed at: [address], [address] [place] [address] Performed By: #### SPAG #### [place] [address] Observed: 11/01/2017 Status: F Source: [facility] 12:12 AM [facility] . MICRO - Microbiology PROCEDURE: Legionella Urine Ag [*1] SOURCE: Urine BODY SITE: COLLECTED DATE/TIME: 11/01/2017 00:12 EDT RECEIVED DATE/TIME: 11/01/2017 15:11 EDT START DATE/TIME: 11/01/2017 15:11 EDT FREE TEXT SOURCE: FINAL REPORTS Final Report [] Verified Date/Time/Personnel: 11/01/2017 15:16 EDT Presumptive negative for L. pneumophila serogroup 1 antigen in urine, suggesting no recent or current infection. Legionnaire's disease cannot be ruled out since other serogroups and species may also cause disease. Performing Locations *1: This test was performed at: [address] Performed By: #### LEA #### [place] [address] FES Collected: 10/31/2017 Status: F Source: [facility] 11:52 PM [facility] REPOSITORY TYPE CODE TESTS RESULT OUT OF RANGE REFERENCE UNITS LAB FE(LOINC) 65-170 mcg/dL Low Iron 13 LAB IBC(LOINC) 250-450 mcg/dL TIBC 314 LAB FESAT(LOINC % ) Iron Sat 4 Performed By: #### FES, LAC #### [address] [address] #### MYCO #### [place] [address] LAC Collected: 10/31/2017 Status: F Source: [facility] 11:52 PM [facility] REPOS[facility] TYPE CODE TESTS RESULT OUT OF REFERENCE UNITS RANGE LAB LAC(LOINC) 0.5-2.2 mmol/L Lactic Acid 1.7 Lvl Performed By: #### FES, LAC #### [place] [address] [place], [place] [address] #### MYCO #### [address] [address] MYCO Collected: 10/31/2017 Status: F Source: [facility] 11:52 PM [facility] REPOSITORY TYPE CODE TESTS RESULT OUT OF REFERENCE UNITS RANGE LAB CD:[id number]([facility]) Mycoplasma IgM Negative Result Comment: INTERPRETATION OF MYCOPLASMA BY EIA (Effective 06/25/04): Negative No detectable antibodies to M. pneumoniae. Indicates absence of current or previous infection. Positive Reactive for antibodies to M. pneumoniae. Indicates a past or recent infection. Equivocal Equivocal for antibodies to M. pneumoniae. Repeat testing by an alternate method suggested. LAB CD:[id number]([facility]) Mycoplasma IgG Neg Result Comment: INTERPRETATION OF MYCOPLASMA BY EIA (Effective 06/25/04): Negative No detectable antibodies to M. pneumoniae. Indicates absence of current or previous infection. Positive Reactive for antibodies to M. pneumoniae. Indicates a past or recent infection. Equivocal Equivocal for antibodies to M. pneumoniae. Repeat testing by an alternate method suggested. Performed By: #### STERLING, LAC #### [place] [address] [place], [place] [address] #### MYCO #### [place] [id number] XR CHEST 2 VIEWS Observed: 10/31/2017 Status: F Source: [facility] 9:08 PM [facility] REPOSITORY ORIGINAL XR CHEST 2 VIEWS CLINICAL STATEMENT: Shortness of breath/Cough/Fever. Patient symptomatic for 2 days COMPARISON: Chest radiograph 05/27/2017 FINDINGS: The heart is normal in size. The cardia mediastinal contours are normal. There is calcified atherosclerosis of the aortic arch. A right- sided chemotherapy port is present with the tip projecting over th e distal superior vena cava. There are bilateral prominent interstitial markings in the lung bases, increased in prominence compared to prior radiographs. There is no focal consolidation, pleural effusi on, vascular congestion, or pneumothorax. No acute osseous abnormality is identified. IMPRESSION: Bilateral interstitial prominence increased from prior chest radiograph can be seen with chronic interstitial disease. I have personally reviewed the images of this examination and agree with the resident's findings and interpretation. Interpreted By: Sedrick Delgado MD Preliminary Report By: Suzi Lopez DO Electronically Signed By: Sedrick Delgado MD Dictated Date: 10/31/2017 9:10:40 PM Prelim Date: 10/31/2017 9:15:10 PM Sign Date: 10/31/2017 9:40:29 PM CBC Collected: 10/31/2017 Status: F Source: [facility] 8:48 PM [facility] REPOS[facility] TYPE CODE TESTS RESULT OUT OF REFERENCE UNITS RANGE LAB WBC(LOINC) 4.60-10.80 10 3/mcL High WBC 12.20 LAB RBCCT(LOINC 4.20-5.40 10 6/mcL ) Low RBC 2.89 LAB HGB(LOINC) 12.0-16.0 G/dL Low Hgb 8.9 LAB HCT(LOINC) 37.0-47.0 % Low Hct 26.8 LAB MCV(LOINC) 80.0-94.0 fL MCV 92.7 LAB MCH(LOINC) 27.0-31.2 pg MCH 30.7 LAB MCHC(LOINC) 33.0-37.0 G/dL MCHC 33.1 LAB RDW(LOINC) 11.5-14.5 % High RDW 17.1 LAB PLT(LOINC) 130-400 10 3/mcL Platelet 192 LAB MPV(LOINC) 7.4-10.4 fL Low MPV 7.3 Performed By: #### CBC, ADIFF, ANEU, GFR, BMP #### [place] [address] .AUTO DIFF Collected: 10/31/2017 Status: F Source: [facility] 8:48 PM [facility] REPOSITORY TYPE CODE TESTS RESULT OUT OF REFERENCE UNITS RANGE LAB TIANA(LOINC) 37.0-80.0 % High Neutrophil % 93.6 LAB LYM(LOINC) 10.0-50.0 % Low Lymphocyte % 2.1 LAB MON(LOINC) 1.7-13.0 % Monocyte % 4.0 LAB EO(LOINC) 0.0-7.0 % Eosinophil % 0.1 LAB BAS(LOINC) 0.0-2.5 % Basophil % 0.2 LAB ABLYM(LOIN 0.77-3.85 10 3/mcL C) Low Lymphocyte, 0.30 Absolute LAB RIVERA(LOINC 0.15-1.00 10 3/mcL ) Monocyte, 0.50 Absolute LAB AEOS(LOINC 0.00-0.40 10 3/mcL ) Eosinophil, 0.00 Absolute LAB ABAS(LOINC 0.00-0.19 10 3/mcL ) Basophil, 0.00 Absolute Performed By: #### CBC, ADIFF, ANEU, GFR, BMP #### [address] [address] .NEUABS Collected: 10/31/2017 Status: F Source: [facility] 8:48 PM [facility] REPOSITORY TYPE CODE TESTS RESULT OUT OF REFERENCE UNITS RANGE LAB ANEU(LOINC) 2.85-6.16 10 3/mcL High Neutrophil, 11.40 Absolute Performed By: #### CBC, ADIFF, ANEU, GFR, BMP #### [address] [address] .GFR Collected: 10/31/2017 Status: F Source: [facility] 8:48 PM [facility] REPOSITORY TYPE CODE TESTS RESULT OUT OF REFERENCE UNITS RANGE LAB GFRAA(LOINC ml/min/1.73 ) sqm GFR [address] Result Comment: GFR Population mean for , Non- Americans Ages 20-29 = 116 mL/min/1.73 sq.m. Ages 30-39 = 107 mL/min/1.73 sq.m. Ages 40-49 = 99 mL/min/1.73 sq.m. Ages 50-59 = 93 mL/min/1.73 sq.m. Ages 60-69 = 85 mL/min/1.73 sq.m. Ages 70+ = 75 mL/min/1.73 sq.m. Chronic Kidney Disease: Less than 60 mL/min/1.73 square meters End Stage Renal Disease: Less than 15 mL/min/1.73 square meters LAB GFRNO(LOINC) ml/min/1.73sqm GFR Non- >60 Result Comment: GFR Population mean for , Non- Americans Ages 20-29 = 116 mL/min/1.73 sq.m. Ages 30-39 = 107 mL/min/1.73 sq.m. Ages 40-49 = 99 mL/min/1.73 sq.m. Ages 50-59 = 93 mL/min/1.73 sq.m. Ages 60-69 = 85 mL/min/1.73 sq.m. Ages 70+ = 75 mL/min/1.73 sq.m. Chronic Kidney Disease: Less than 60 mL/min/1.73 square meters End Stage Renal Disease: Less than 15 mL/min/1.73 square meters Performed By: #### CBC, ADIFF, ANEU, GFR, BMP #### [place] [address] [place], [place] [address] BMP Collected: 10/31/2017 Status: F Source: [facility] 8:48 PM [facility] TYPE CODE TESTS RESULT OUT OF REFERENCE UNITS RANGE LAB GLU(LOINC) 80-115 mg/dL Glucose High Level 304 LAB NA(LOINC) 136-146 mEq/L Low Sodium Level 135 LAB K(LOINC) 3.5-5.1 mEq/L Potassium Level 4.1 LAB CL(LOINC) 98-107 mEq/L Chloride High 108 LAB CO2(LOINC) 23-31 mEq/L Low CO2 18 LAB EBAL(LOINC mEq/L ) Electrolyte Balance 9.0 LAB BUN(LOINC) 7.0-18.0 mg/dL BUN 11.7 LAB CRE(LOINC) 0.6-1.2 mg/dL Creatinine Lvl (s) 0.7 LAB BC(LOINC) 7-27 ratio BUN/Creatinine 17 Ratio LAB CA(LOINC) 8.4-10.2 mg/dL Calcium Lvl 8.7 Performed By: #### CBC, ADIFF, ANEU, GFR, BMP #### [place] [address] [place], [place] [address] CMP Collected: 10/07/2017 Status: F Source: [facility] 8:41 AM [facility] REPOSITORY TYPE CODE TESTS RESULT OUT OF REFERENCE UNITS RANGE LAB 1547-9 80-115 mg/dL GLUCOSE 80 LAB NA(LOINC) 136-146 mEq/L Sodium Level 140 LAB K(LOINC) 3.5-5.1 mEq/L Potassium Level 4.5 LAB CL(LOINC) 98-107 mEq/L Chloride 107 LAB CO2(LOINC) 23-31 mEq/L CO2 26 LAB EBAL(LOINC mEq/L ) Electrolyte Balance 7.0 LAB BUN(LOINC) 7.0-18.0 mg/dL BUN High 21.8 LAB CRE(LOINC) 0.6-1.2 mg/dL Creatinine Lvl (s) 0.7 LAB BC(LOINC) 7-27 ratio High BUN/Creatinine 31 Ratio LAB CA(LOINC) 8.4-10.2 mg/dL Calcium Lvl 9.3 LAB PROT(LOINC 6.0-8.3 G/dL ) Total Protein 6.5 LAB ALB(LOINC) 3.4-4.8 G/dL Albumin Level 3.8 LAB GLB(LOINC) G/dL Globulin 2.7 LAB AG(LOINC) 1.1-2.5 ratio A/G Ratio 1.4 LAB BILT(LOINC 0.2-1.0 mg/dL ) Bili Total 0.3 LAB AP(LOINC) 40-135 IU/L Alk Phos 91 LAB AST(LOINC) 10-40 IU/L AST/SGOT 12 LAB ALT(LOINC) 10-35 IU/L ALT/SGPT 10 Performed By: #### CMP, GFR, FT3, TSH #### [address] [address] #### CORTA #### [place] [address] .GFR Collected: 10/07/2017 Status: F Source: [facility] 8:41 AM [facility] RE[facility] TYPE CODE TESTS RESULT OUT OF REFERENCE UNITS RANGE LAB GFRAA(LOINC ml/min/1.73 ) sqm GFR [address] Result Comment: GFR Population mean for , Non- Americans Ages 20-29 = 116 mL/min/1.73 sq.m. Ages 30-39 = 107 mL/min/1.73 sq.m. Ages 40-49 = 99 mL/min/1.73 sq.m. Ages 50-59 = 93 mL/min/1.73 sq.m. Ages 60-69 = 85 mL/min/1.73 sq.m. Ages 70+ = 75 mL/min/1.73 sq.m. Chronic Kidney Disease: Less than 60 mL/min/1.73 square meters End Stage Renal Disease: Less than 15 mL/min/1.73 square meters LAB GFRNO(LOINC) ml/min/1.73sqm GFR Non- >60 Result Comment: GFR Population mean for , Non- Americans Ages 20-29 = 116 mL/min/1.73 sq.m. Ages 30-39 = 107 mL/min/1.73 sq.m. Ages 40-49 = 99 mL/min/1.73 sq.m. Ages 50-59 = 93 mL/min/1.73 sq.m. Ages 60-69 = 85 mL/min/1.73 sq.m. Ages 70+ = 75 mL/min/1.73 sq.m. Chronic Kidney Disease: Less than 60 mL/min/1.73 square meters End Stage Renal Disease: Less than 15 mL/min/1.73 square meters Performed By: #### CMP, GFR, FT3, TSH #### [address] [address] #### CORTA #### [place] [address] FT3 Collected: 10/07/2017 Status: F Source: [facility] 8:41 AM [facility] REPOSITORY TYPE CODE TESTS RESULT OUT OF RANGE REFERENCE UNITS LAB FT3(LOINC) 2.3-4.0 pg/mL Free T3 3.1 Performed By: #### CMP, GFR, FT3, TSH #### [address] [address] #### CORTA #### [place] [address] TSH Collected: 10/07/2017 Status: F [facility] AM [facility] REPOS[facility] TYPE CODE TESTS RESULT OUT OF RANGE REFERENCE UNITS LAB TSH(LOINC) 0.27-4.20 mcIU/mL Low TSH <0.01 Result Comment: Below measuring range Performed By: #### CMP, GFR, FT3, TSH #### [address] [address] #### CORTA #### [place] [address] CORTA Collected: 10/07/2017 Status: F [facility] 8:41 AM [facility] REPOS[facility] TYPE CODE TESTS RESULT OUT OF REFERENCE UNITS RANGE LAB 9813-7 6.5-26.0 mcg/dL CORTISOL 14.4 Performed By: #### CMP, GFR, FT3, TSH #### [address] [place], [place] [address] #### CORTA #### [facility] [address] [place] [address] PULMONARY VISIT REPORT Observed: 09/29/2017 Status: F Source: [facility] 6:17 AM [facility] REPOSITORY [facility] [place] [address] [place] [address] OFFICE VISIT Date of Service: 09/28/17 MR#: [id number] Acct: [id number] Name: FRANCISCO HERNANDEZ Rep #: [id number] : 1950 Provider: Gerry Diallo MD Age/Sex: 67/F Location: [facility].PM[facility] Status: Signed Assessment AND Plan 1. Chronic obstructive pulmonary disease, unspecified COPD type J44.9 Plan Patient has had progression in lung disease on most recent pulmonary function testing. This is likely secondary to continued smoking. Stressed to the patient the importance of complete cessation to avoid progression moving forward. Some concern patient may be having nocturnal hypoxemia leading to elevated pulmonary artery pressures. Will obtain a nocturnal oximetry on patient CPAP for evaluation. Supplemental oxygen may need to be added. Signs and symptoms of exacerbation and sick policy were reviewed in detail. Patient voiced understanding. Continue current medications. Call with signs or symptoms of exacerbation. Orders Orders: Medications New: 2. 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 This does not appear to be significantly changed compared to previous by PFT criteria. No indication for repeat imaging study or autoimmune workup at this time. Continue to treat symptomatically. 3. RENNY (obstructive sleep apnea) G47.33 Plan Discussed with patient at length about the necessity of compliance with therapy on all nights. Stressed to the patient that given her underlying pulmonary issues, she is at high risk for desaturations at night which could end up in arrhythmia, hospitalization or potential . Will obtain a nocturnal oximetry for evaluation of nocturnal hypoxemia to see if supplemental oxygen would be required, in addition to CPAP. Obtain nocturnal oximetry Orders Orders: 4. Tobacco abuse Z72.0 Plan Burke discussion with patient for 7 minutes on the importance of complete smoking cessation. Patient understands that this does lead to progression of disease in this conversation has been had several times previously with the patient per the . Attempted to use the cost savings as a possible indicator for cessation, but patient remains pre-contemplative. Encourage smoking cessation Plan Detail Other Medications Discontinued: HPI 3 M FU: Chief Complaint: Shortness of breath on exertion Details: Patient is a 67-year-old female, currently under the care of Dr. Baca, who presents for evaluation secondary to shortness of breath on exertion. Since last visit, patient denies any ER visits, hospitalizations or prednisone burst. Patient states that her has decreased her blood pressure medication secondary to some decreased blood pressure over the last week or so. Patient has reported some orthostatic type symptoms that have improved with cessation of medications. Patient continues to be compliant with Symbicort therapy. Patient denies any complications such as thrush, hoarseness or sore throat. Patient states that she uses her pro-air 2-3 times per month, but states that subjective she does not feel any improvement with her use. Patient tends to use a wheelchair to get around in public places. Patient does report compliance with BiPAP therapy. However, reports the patient will refuse to wear if she has an appointment the following day secondary to castillo left in her hair from the head apparatus. Patient states that she does tell a difference when she is noncompliant with therapy. Patient denies any pain at the interface site, dry mouth or epistaxis. Patient continues to smoke approximately 1 pack per day. Patient is unable to provide any explanation except for I am addicted. Patient states she has tried multiple methods of cessation in the past and does not feel that she will ever be successful. Testing personally reviewed with the patient Complete PFT (09/22/2017): Irreversible moderately severe mixed ventilatory defect with a symmetric reduction diffusing capacity with worsening in DLCO compared to previous (FVC 56%, FEV1 52%, TLC 75%, DLCO 40%) Compliance report (August 2017): Compliant 60% of days for an average of 8 hours 14 minutes on CPAP of 10 with an AHI of 0.9 and well-controlled leak. 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: [employer] Accompanied by: Allergies Sulfa (Sulfonamide Antibiotics) Adverse Reaction (Intermediate, Verified 09/28/17 13:39) Other - Messes with blood counts prochlorperazine edisylate [From Compazine] Adverse Reaction (Mild, Verified 09/28/17 13:39) Other - Restless legs prochlorperazine maleate [From Compazine] Adverse Reaction (Mild, Verified 09/28/17 13:39) Other - Restless legs Medications Gabapentin [Neurontin] 300 mg PO QHS 08/23/16 [History Confirmed 09/28/17] Levothyroxine [Synthroid] 68.5 mcg PO DAILY 08/23/16 [History Confirmed 09/28/17] Montelukast Sodium [Singulair] 10 mg PO DAILY 08/23/16 [History Confirmed 09/28/17] Pantoprazole Sodium [Protonix] 40 mg PO DAILY 08/23/16 [History Confirmed 09/28/17] albuterol sulfate HFA 90 mcg/actuation aerosol inhaler 2 puff INHALATION Q4H PRN g 06/16/17 [History Confirmed 09/28/17] amlodipine 5 mg tablet 5 mg PO QDAY 06/16/17 [History Confirmed 09/28/17] fluoxetine 20 mg capsule 20 mg PO QDAY 06/16/17 [History Confirmed 09/28/17] gabapentin 100 mg capsule 200 mg PO BID cap 06/16/17 [History Confirmed 09/28/17] hydrocodone 7.5 mg-acetaminophen 300 mg tablet 1 tab PO BID tab 06/16/17 [History Confirmed 09/28/17] ipratropium-albuterol 0.5 mg-3 mg(2.5 mg base)/3 mL nebulization soln 3 ml INHALATION Q4H PRN ml 06/16/17 [History Confirmed 09/28/17] losartan 25 mg tablet 100 mg PO DAILY tab 06/16/17 [History Confirmed 09/28/17] polysaccharide iron complex 150 mg iron capsule 150 mg PO QDAY cap 06/16/17 [History Confirmed 09/28/17] budesonide-formoterol HFA 160 mcg-4.5 mcg/actuation aerosol inhaler 2 inh INHALATION Q12H #10.2 g 09/28/17 [Rx Confirmed 09/28/17] PFS Medical History Encephalopathy (Acute) Leukocytosis (Acute) Hypotension (Acute) Decreased level of consciousness (Acute) Respiratory failure with hypercapnia (Acute) MRSA pneumonia (Acute) Acute delirium (Acute) Headache (Acute) RENNY (obstructive sleep apnea) (Chronic) Mild diastolic dysfunction (Chronic) Depression (Chronic) Restless leg (Chronic) HTN (hypertension) (Chronic) Presbycusis of both ears (Chronic) Adrenal insufficiency (Chronic) COPD (chronic obstructive pulmonary disease) (Chronic) Hypothyroidism (Chronic) Pulmonary fibrosis (Chronic) COPD with acute exacerbation (Acute) Gallstones (Acute) Septic shock (Acute) UTI (urinary tract infection) (Acute) Anxiety (Chronic) Bronchitis (Chronic) Carpal tunnel syndrome (Chronic) Cataract (Chronic) Chronic back pain (Chronic) Migraine (Chronic) Osteopenia (Chronic) Solitary pulmonary nodule (Chronic) Stage 2 moderate COPD by GOLD classification (Chronic) Tobacco abuse (Chronic) Acute respiratory failure (Resolved) Hypersomnia (Resolved) Surgical History Cochlear implant in place (Resolved) H/O adenoidectomy (Resolved) H/O: hysterectomy (Resolved) History of cataract surgery (Resolved) History of cholecystectomy (Resolved) History of lung biopsy (Resolved) Hx of appendectomy (Resolved) Hx of left knee surgery (Resolved) lipoma removal (Resolved) vocal nodules removed (Resolved) Family History Mother Hypertension CVA (cerebral vascular accident) Father CVA (cerebral vascular accident) Hypertension Sister Colon cancer Grandfather Hypertension Heart disease Social History Smoking Status: Current every day smoker second hand exposure: No alcohol intake: never substance use type: does not use Review of Systems Const CONSTITUTIONAL: Positive fatigue and weight gain (planned, taking Boost daily ); negative anorexia, body ache, chills, daytime sleepiness, fever(s), night sweats, oral thrush, stops breathing during sleep, weight loss, sleeping in chair, weight loss, frequent colds, seasonal allergies, other, headache(s) or orthopnea EETM Ear Nose Throat Mouth: Positive hard of hearing; negative hoarseness, dry mouth in morning, change in vision, itchy eyes, eye pain, swallowing Difficulty, ear pain, nose bleed, headache(s), mouth pain, nasal congestion, nasal discharge, post nasal drip, sinus pain, sinus pressure, sore throat or other Cardio Cardiovascular: Negative chest pain, chest pain at rest, chest pain with activity, irregular heart rhythm, edema, shortness of breath when lying down, palpitations, murmur or other Resp Respiratory: Positive as per HPI, shortness of breath shortness of breath: Positive with activity, chest congestion and cough cough: Positive non-productive; negative pain with cough, wheezing, chest tightness, pain on inspiration, inhalers, increase use of rescue inhalers, snoring, apnea or other Gastro Gastrointestional: Negative bloody stools, change in appetite, difficulty swallowing, reflux, hematemesis, melena stool, loose stool, constipation or other Genitourinary: Negative blood in urine, nocturia, pain with urination or other Musc Musculoskeletal: Negative body pain, back pain, neck pain or other Skin/Breast Skin/Breast: Negative dry skin, itching, rash, unusual bruising, breast lump or other Neuro Neurological: Negative restless legs, confusion, weakness or other Psych Psychocological: Positive abnormal sleep pattern; negative anxiety, thoughts of hurting self/others, hopelessness or other Lymph Lymphatic: Negative easy bleeding, easy bruising, swollen lymph nodes or other Exam Const Constitutional: Positive conversant, cooperative, in no acute respiratory distress, good hygiene, appears older than stated age, frail appearing and smells of smoke; negative ill appearing or wearing supplemental oxygen Head Head: Positive normocephalic and atraumatic; negative cyanosis of lips/distal nose, frontal sinus tenderness, maxillary sinus tenderness, microcephalic or macrocephalic Eyes Eye: Positive clear conjunctiva; negative nystagmus, scleral abnormality or cataract present Ears Ear: Positive hard of hearing and external ears normal Nose Nose: Positive external nose normal, septum normal and no nasal discharge; negative epistaxis or nasal polyp Mouth Mouth: Positive oral mucosae normal, no lesions, dentures and posterior oropharynx is adequate; negative post nasal drip, oral thrush present or malodorous breath Mallampati Score: II: Mallampati Score Neck Neck: Positive normal visual inspection, full ROM and trachea midline; negative lymphadenopathy or JVD Chest Wall Chest: Positive symmetric chest movement and increased A/P diameter; negative crepitus or tenderness Resp lung sounds: Positive diminished diminished: Positive global, wheeze present on forced exhalation, prolonged expiratory time and normal chronic state of increased work of breathing; negative wheezes, rhonchi, rales, use of accessory muscles or dullness to percussion Cardio Cardiac: Positive regular rate, regular rhythm, S1 normal and S2 normal; negative murmur, rub or gallop GI GI: Positive normal to inspection and normal bowel sounds; negative distended, ascites or epigastric tenderness Genitourinary: Positive deferred Musc Musculoskeletal: Positive kyphosis and in a wheelchair; negative scoliosis, lordosis or rheumatoid nodules Skin Pulmonary Skin Exam: Positive intact and dermal atrophy; negative rash, lesion, erythema or scaly Pulses Pulse: Yes radial pulses present, Yes pulses normal x4 extremities Extremities Extremities: Yes capillary refill normal, Yes clubbing, No cyanosis, No edema, No stasis dermatitis Neuro Neurologic: Yes conversant, Yes no focal neuro deficits, Yes normal coordination, Yes normal concentration, Yes cooperative, Yes normal cognition, Yes understands questions Lymph Lymphatic: No lymphadenopathy Psych Appearance: Positive grossly normal Mental Status: Positive mental status grossly normal Mood: Positive congruent mood Affect: Positive normal affect Pulmonary Procedure Smoking Cessation Education: Yes 3-10 minutes, expresses understanding, continue to encourage smoking cessation, needs reinforcement and education provided Coding Level of Care Code Off vis,est,level 4 Diagnoses Chronic obstructive pulmonary disease, unspecified COPD type J44.9 COPD type: unspecified COPD Pulmonary fibrosis J84.10 RENNY (obstructive sleep apnea) G47.33 Tobacco abuse Z72.0 09/29/17 0617 <Electronically signed by Gerry Diallo MD> Date Gerry Diallo MD Cosigner Signature: Date (if applicable) CC: Vin Baca DO CBC Collected: 09/23/2017 Status: F Source: [facility] 9:34 AM [facility] REPOSITORY TYPE CODE TESTS RESULT OUT OF REFERENCE UNITS RANGE LAB WBC(LOINC) 4.60-10.80 10 3/mcL WBC 6.00 LAB RBCCT(LOINC 4.20-5.40 10 6/mcL ) Low RBC 3.32 LAB HGB(LOINC) 12.0-16.0 G/dL Low Hgb 9.9 LAB HCT(LOINC) 37.0-47.0 % Low Hct 29.3 LAB MCV(LOINC) 80.0-94.0 fL MCV 88.3 LAB MCH(LOINC) 27.0-31.2 pg MCH 29.7 LAB MCHC(LOINC) 33.0-37.0 G/dL MCHC 33.7 LAB RDW(LOINC) 11.5-14.5 % High RDW 18.3 LAB PLT(LOINC) 130-400 10 3/mcL Platelet 156 LAB MPV(LOINC) 7.4-10.4 fL MPV 8.6 Performed By: #### CBC, ADIFF, ANEU, CMP, GFR #### [address] [address] #### CORTA, ACTH #### [address] [address] .AUTO DIFF Collected: 09/23/2017 Status: F Source: [facility] 9:34 AM [facility] REPOSITORY TYPE CODE TESTS RESULT OUT OF REFERENCE UNITS RANGE LAB TIANA(LOINC) 37.0-80.0 % Neutrophil % 68.1 LAB LYM(LOINC) 10.0-50.0 % Lymphocyte % 21.0 LAB MON(LOINC) 1.7-13.0 % Monocyte % 8.5 LAB EO(LOINC) 0.0-7.0 % Eosinophil % 2.1 LAB BAS(LOINC) 0.0-2.5 % Basophil % 0.3 LAB ABLYM(LOIN 0.77-3.85 10 3/mcL C) Lymphocyte, 1.30 Absolute LAB RIVERA(LOINC 0.15-1.00 10 3/mcL ) Monocyte, 0.50 Absolute LAB AEOS(LOINC 0.00-0.40 10 3/mcL ) Eosinophil, 0.10 Absolute LAB ABAS(LOINC 0.00-0.19 10 3/mcL ) Basophil, 0.00 Absolute Performed By: #### CBC, ADIFF, ANEU, CMP, GFR #### [facility] [address] [place], [place] [address] #### CORTA, ACTH #### [address] [address] .NEUABS Collected: 09/23/2017 Status: F Source: [facility] 9:34 AM [facility] REPOSITORY TYPE CODE TESTS RESULT OUT OF REFERENCE UNITS RANGE LAB ANEU(LOINC) 2.85-6.16 10 3/mcL Neutrophil, 4.10 Absolute Performed By: #### CBC, ADIFF, ANEU, CMP, GFR #### [place] [address] [address] [place], [place] [address] #### CORTA, ACTH #### [address] [address] CMP Collected: 09/23/2017 Status: F Source: [facility] 9:34 AM [facility] REPOSITORY TYPE CODE TESTS RESULT OUT OF REFERENCE UNITS RANGE LAB 1547-9 80-115 mg/dL GLUCOSE 81 LAB NA(LOINC) 136-146 mEq/L Sodium Level 140 LAB K(LOINC) 3.5-5.1 mEq/L Potassium Level 4.3 LAB CL(LOINC) 98-107 mEq/L Chloride 106 LAB CO2(LOINC) 23-31 mEq/L CO2 26 LAB EBAL(LOINC mEq/L ) Electrolyte Balance 8.0 LAB BUN(LOINC) 7.0-18.0 mg/dL BUN 17.7 LAB CRE(LOINC) 0.6-1.2 mg/dL Creatinine Lvl (s) 0.6 LAB BC(LOINC) 7-27 ratio High BUN/Creatinine 30 Ratio LAB CA(LOINC) 8.4-10.2 mg/dL Calcium Lvl 9.2 LAB PROT(LOINC 6.0-8.3 G/dL ) Total Protein 6.7 LAB ALB(LOINC) 3.4-4.8 G/dL Albumin Level 3.8 LAB GLB(LOINC) G/dL Globulin 2.9 LAB AG(LOINC) 1.1-2.5 ratio A/G Ratio 1.3 LAB BILT(LOINC 0.2-1.0 mg/dL ) Bili Total 0.3 LAB AP(LOINC) 40-135 IU/L Alk Phos 95 LAB AST(LOINC) 10-40 IU/L AST/SGOT 13 LAB ALT(LOINC) 10-35 IU/L ALT/SGPT 11 Performed By: #### CBC, ADIFF, ANEU, CMP, GFR #### [place] [address] [place], [place] [address] #### CORTA, ACTH #### [place] [address] .GFR Collected: 09/23/2017 Status: F Source: [facility] 9:34 AM [facility] REPOSITORY TYPE CODE TESTS RESULT OUT OF REFERENCE UNITS RANGE LAB GFRAA(LOINC ml/min/1.73 ) sqm GFR [address] [place] Result Comment: GFR Population mean for , Non- Americans Ages 20-29 = 116 mL/min/1.73 sq.m. Ages 30-39 = 107 mL/min/1.73 sq.m. Ages 40-49 = 99 mL/min/1.73 sq.m. Ages 50-59 = 93 mL/min/1.73 sq.m. Ages 60-69 = 85 mL/min/1.73 sq.m. Ages 70+ = 75 mL/min/1.73 sq.m. Chronic Kidney Disease: Less than 60 mL/min/1.73 square meters End Stage Renal Disease: Less than 15 mL/min/1.73 square meters LAB GFRNO(LOINC) ml/min/1.73sqm GFR Non- >60 Result Comment: GFR Population mean for , Non- Americans Ages 20-29 = 116 mL/min/1.73 sq.m. Ages 30-39 = 107 mL/min/1.73 sq.m. Ages 40-49 = 99 mL/min/1.73 sq.m. Ages 50-59 = 93 mL/min/1.73 sq.m. Ages 60-69 = 85 mL/min/1.73 sq.m. Ages 70+ = 75 mL/min/1.73 sq.m. Chronic Kidney Disease: Less than 60 mL/min/1.73 square meters End Stage Renal Disease: Less than 15 mL/min/1.73 square meters Performed By: #### CBC, ADIFF, ANEU, CMP, GFR #### [place] [address] [place], [place] [address] #### CORTA, ACTH #### [facility] [address] [place] [address] CORTA Collected: 09/23/2017 Status: F Source: [facility] 9:34 AM [facility] REPOSITORY TYPE CODE TESTS RESULT OUT OF REFERENCE UNITS RANGE LAB 9813-7 6.5-26.0 mcg/dL CORTISOL 8.4 Performed By: #### CBC, ADIFF, ANEU, CMP, GFR #### [address] [place], [place] [address] #### CORTA, ACTH #### [facility] [address] [place] [address] ACTH Collected: 09/23/2017 Status: F Source: [facility] 9:34 AM [facility] REPOSITORY TYPE CODE TESTS RESULT OUT OF RANGE REFERENCE UNITS LAB ACTH(LOINC) 9.0-46.0 pg/mL ACTH 15.7 Performed By: #### CBC, ADIFF, ANEU, CMP, GFR #### [place] [address] [place], [place] [address] #### CORTA, ACTH #### [place] [address] [place] [address] PULMONARY FUNCTION Observed: 09/23/2017 Status: F Source: [facility] 5:57 AM [facility] REPOSITORY [facility] Pulmonary Services/Neurology [address] [place] [address] MR#: [id number] Acct: [id number] Name: FRANCISCO HERNANDEZ Rep #: [id number] : 1950 67 From: Gerry Diallo MD Referring Dr: Faye Perez [employer] OPERATOR Status: REG CLI Ordering Dr: Date: Location: PSN Sex: F C COMPLETE PULMONARY FUNCTION TEST INTERPRETATION Brief HPI: Patient is a 67 year old female, currently under the care of myself, who presents to [facility] for complete pulmonary function tests secondary to diagnosis of COPD. Respiratory therapist reports good effort and reproducible results, but difficulty secondary to coughing. Interpretation: Forced expiration spirometry shows a moderately-severe large airways obstructive ventilatory defect with an FEV1 of 52 % predicted. There is no significant bronchodilator response by ATS criteria. Spirograms are of good quality and plateau slowly, indicating slowly emptying areas of the lungs. The respiratory flow volume loop shows decreased expiratory flow rates at high lung volumes consistent with small airways obstruction. Lung volumes by body plethysmography show a decreased total lung capacity at 4.27 L, 75 % predicted. FRC and RV are elevated out of proportion. Lung volume measurements are consistent with air-trapping. Diffusion capacity by carbon monoxide is decreased at 40 % predicted. The airway resistance is elevated. Compared to previous pulmonary function tests from 02/11/2016, there has been a significant reduction in FEV1 and DLCO. Impression: Irreversible moderately severe mixed ventilatory defect with a symmetric reduction diffusing capacity. There has been worsening compared to previous study. 09/23/17 0557 <Electronically signed by Gerry Diallo MD> Date Gerry Diallo MD CC: Gerry Diallo MD; Vin Baca DO; Faye Perez Date Dictated: 09/23/17554 Date Transcribed: 09/23/17554 Salesperson [employer]: SHAUNA Signed PULMONARY VISIT REPORT Observed: 06/23/2017 Status: F Source: [facility] 5:27 PM [facility] REPOSITORY [facility] of [address] [place] [address] OFFICE VISIT Date of Service: 06/23/17 MR#: [id number] Acct: [id number] Name: FRANCISCO HERNANDEZ Rep #: [id number] : 1950 Provider: Faye Perez Age/Sex: 67/F [facility] Status: Signed Assessment AND Plan Problems 1. Chronic obstructive pulmonary disease, unspecified COPD type J44.9; J44.9; J44.9; J44.9 Status Chronic 2. RENNY (obstructive sleep apnea) G47.33 Status Chronic 3. Adrenal insufficiency E27.40 Status Chronic 4. Tobacco abuse Z72.0 Status Chronic Plan COPD: Patient has been placed back on Symbicort 2 puffs twice daily. 1 month supply of samples were provided in the office today. Orders written for [facility] to support the Symbicort twice daily. The patient also reports that the temperature in her room at [facility] is warm and causes for an increase in shortness of breath and cough. I have also written a request that they reduce the temperature in her room and either provide her with a fan or assist her in getting a fan set up from home. It is very common that patients with COPD do not tolerate warm temperatures. Often, a fan can be utilized to reduce the sensation of dyspnea as well. Repeat pulmonary function tests in 3 months and follow-up with Dr. Diallo. Anticipate worsening of results, it has been significant amount of time since her last pulmonary function tests and she continues to smoke. Obstructive sleep apnea: Patient is using and benefiting from current pressure support therapy. No indication for a titration study at this time. Continue current settings, follow-up with Dr. Diallo in 3 months. Adrenal insufficiency: Defer treatment to endocrinology. Tobacco abuse: Continue to encourage smoking cessation. Orders Orders: Medications Changed: Plan Detail Follow Up 3 Months ([facility]) [facility] FU: Chief Complaint: cough HPI Comments Details: Patient presents to the office today for routine follow-up on her COPD. She is in a wheelchair, currently on room air and is accompanied by her . She is currently residing at [facility] for rehabilitation after suffering a stroke. She has been recovering well, and per her and her 's report she only has about 1 or 2 weeks left in [facility] before she will be discharged home. It appears as though while she has been in [facility] she has not been receiving albuterol nebulizer treatments, or Symbicort maintenance inhalers. She is however allowed to smoke, and is currently smoking 6 cigarettes per day. The patient reports that she has a cough that sounds junky. She is unable to produce any sputum. She is complaining of wheezing and chest tightness. This has not been ongoing for several weeks. She denies any fever or chills. They state that she is currently on prednisone, likely for her adrenal insufficiency. She is compliant with her CPAP. She reports that she is at the point where she cannot sleep without it . She feels rested in the morning. She denies any difficulty with air leaks or dry mouth. She uses oxygen as needed during the day, has not needed it much lately. Last pulmonary function tests that I have on file are from February 11, 2016 and showed FVC of 70% of predicted, FEV1 of 63% of predicted and FEV1/FVC ratio 72% of predicted. Last walking oximetry is from May 04, 2016 at the time she was able to ambulate 454 feet, but did require 2 L of nasal cannula oxygen. Last echocardiogram that I have on file was from October 25, 2016 at that time showed an EF of 55%. Intake Vital Signs06/23/17 Height 5 ft 8 in 06/23/17 Weight: 122 lb 8 oz Intake Visit Reasons: Hospital FU Accompanied by: Allergies Sulfa (Sulfonamide Antibiotics) Adverse Reaction (Intermediate, Verified 06/23/17 14:20) Other - Messes with blood counts prochlorperazine edisylate [From Compazine] Adverse Reaction (Mild, Verified 06/23/17 14:20) Other - Restless legs prochlorperazine maleate [From Compazine] Adverse Reaction (Mild, Verified 06/23/17 14:20) Other - Restless legs Medications Gabapentin [Neurontin] 300 mg PO QHS 08/23/16 [History Confirmed 06/16/17] Levothyroxine [Synthroid] 68.5 mcg PO DAILY 08/23/16 [History Confirmed 06/16/17] Montelukast Sodium [Singulair] 10 mg PO DAILY 08/23/16 [History Confirmed 06/16/17] Pantoprazole Sodium [Protonix] 40 mg PO DAILY 08/23/16 [History Confirmed 06/16/17] PredniSONE 10 mg PO DAILY@0800 tab 08/31/16 [Rx Confirmed 06/16/17] albuterol sulfate HFA 90 mcg/actuation aerosol inhaler 2 puff INHALATION Q4H PRN g 06/16/17 [History Confirmed 06/16/17] amlodipine 5 mg tablet 5 mg PO QDAY 06/16/17 [History Confirmed 06/16/17] budesonide-formoterol HFA 160 mcg-4.5 mcg/actuation aerosol inhaler 2 inh INHALATION Q12H 06/16/17 [History Confirmed 06/16/17] fluoxetine 20 mg capsule 20 mg PO QDAY 06/16/17 [History Confirmed 06/16/17] gabapentin 100 mg capsule 200 mg PO BID cap 06/16/17 [History Confirmed 06/16/17] hydrochlorothiazide 25 mg tablet 25 mg PO QDAY 06/16/17 [History Confirmed 06/16/17] hydrocodone 7.5 mg-acetaminophen 300 mg tablet 1 tab PO BID tab 06/16/17 [History Confirmed 06/16/17] ipratropium-albuterol 0.5 mg-3 mg(2.5 mg base)/3 mL nebulization soln 3 ml INHALATION Q4H PRN ml 06/16/17 [History Confirmed 06/16/17] losartan 25 mg tablet 100 mg PO DAILY tab 06/16/17 [History Confirmed 06/23/17] polysaccharide iron complex 150 mg iron capsule 150 mg PO QDAY cap 06/16/17 [History Confirmed 06/16/17] Review of Systems Const CONSTITUTIONAL: Positive headache(s); negative anorexia, body ache, chills, daytime sleepiness, fever(s), night sweats, oral thrush, stops breathing during sleep, weight loss, sleeping in chair, fatigue, weight loss, weight gain, frequent colds, seasonal allergies, other or orthopnea EETM Ear Nose Throat Mouth: Positive hard of hearing, headache(s) and nasal discharge; negative hearing normal, hoarseness, dry mouth in morning, change in vision, itchy eyes, eye pain, swallowing Difficulty, ear pain, nose bleed, mouth pain, nasal congestion, post nasal drip, sinus pain, sinus pressure, sore throat or other Cardio Cardiovascular: Negative chest pain, chest pain at rest, chest pain with activity, irregular heart rhythm, edema, shortness of breath when lying down, palpitations, murmur or other Resp Respiratory: Positive as per HPI, shortness of breath, wheezing, chest congestion, cough cough: Positive productive color: Positive thick, yellow and green, chest tightness, pain on inspiration, inhalers and apnea; negative pain with cough, increase use of rescue inhalers, snoring or other Gastro Gastrointestional: Negative bloody stools, change in appetite, difficulty swallowing, reflux, hematemesis, melena stool, loose stool, constipation or other Genitourinary: Negative blood in urine, nocturia, pain with urination or other Musc Musculoskeletal: Positive back pain and neck pain; negative body pain or other Skin/Breast Skin/Breast: Positive dry skin; negative itching, rash, unusual bruising, breast lump or other Neuro Neurological: Positive restless legs and weakness; negative confusion or other Psych Psychocological: Positive anxiety and hopelessness; negative abnormal sleep pattern, thoughts of hurting self/others or other Lymph Lymphatic: Positive easy bruising; negative easy bleeding, swollen lymph nodes or other Exam Const Constitutional: Positive conversant, cooperative, in no acute respiratory distress, good hygiene, frail appearing, appears older than stated age and thin Head Head: Positive normocephalic and atraumatic; negative cyanosis of lips/distal nose Eyes Eye: Positive clear conjunctiva and nystagmus; negative scleral abnormality Ears Ear: Positive hard of hearing and external ears normal; negative hearing normal Nose Nose: Positive external nose normal and no nasal discharge; negative epistaxis Mouth Mouth: Positive oral mucosae normal, dentures, no lesions and posterior oropharynx is adequate; negative post nasal drip, malodorous breath or oral thrush present Mallampati Score: II: Mallampati Score Neck Neck: Positive normal visual inspection, full ROM and trachea midline; negative lymphadenopathy, JVD or tender Chest Wall Chest: Positive normal inspection of the chest and symmetric chest movement; negative increased A/P diameter Resp lung sounds: Positive wheezes wheezing: Positive global, diminished, rhonchi rhonchi: Positive other (upper airway), wheeze present on forced exhalation, prolonged expiratory time and increased work of breathing; negative rales, dullness to percussion or use of accessory muscles Cardio Cardiac: Positive regular rate, regular rhythm, S1 normal and S2 normal; negative murmur GI GI: Positive normal to inspection and normal bowel sounds; negative distended Genitourinary: Positive deferred Musc Musculoskeletal: Positive steady gait, ROM normal, kyphosis and in a wheelchair; negative scoliosis Skin Pulmonary Skin Exam: Positive intact and dermal atrophy; negative rash, lesion, ulcers, erythema or scaly Pulses Pulse: Positive pulses normal x4 extremities Extremities Extremities: Positive capillary refill normal; negative clubbing, cyanosis or edema Neuro Neurologic: Positive conversant, no focal neuro deficits, cooperative, normal cognition, normal coordination, normal concentration and understands questions; negative tremor Lymph Lymphatic: Negative lymphadenopathy, tenderness, cervical adenopathy or axillary adenopathy Psych Appearance: Positive grossly normal, eye contact and well kempt Mental Status: Positive mental status grossly normal Mood: Positive congruent mood Affect: Positive normal affect [facility] Medical History Encephalopathy (Acute) Leukocytosis (Acute) Hypotension (Acute) Decreased level of consciousness (Acute) Respiratory failure with hypercapnia (Acute) MRSA pneumonia (Acute) Acute delirium (Acute) Headache (Acute) RENNY (obstructive sleep apnea) (Chronic) Mild diastolic dysfunction (Chronic) Depression (Chronic) Former smoker (Chronic) Restless leg (Chronic) HTN (hypertension) (Chronic) Presbycusis of both ears (Chronic) Adrenal insufficiency (Chronic) COPD (chronic obstructive pulmonary disease) (Chronic) Hypothyroidism (Chronic) Pulmonary fibrosis (Chronic) Acute respiratory failure (Acute) COPD with acute exacerbation (Acute) Gallstones (Acute) Septic shock (Acute) UTI (urinary tract infection) (Acute) Anxiety (Chronic) Bronchitis (Chronic) Carpal tunnel syndrome (Chronic) Cataract (Chronic) Chronic back pain (Chronic) Hypersomnia (Chronic) Migraine (Chronic) Osteopenia (Chronic) Solitary pulmonary nodule (Chronic) Stage 2 moderate COPD by GOLD classification (Chronic) Tobacco abuse (Chronic) Gram-negative pneumonia (Resolved) Septic shock (Resolved) Tobacco user (Resolved) Migraine (Inactive) Surgical History Cochlear implant in place (Resolved) H/O adenoidectomy (Resolved) H/O: hysterectomy (Resolved) History of cataract surgery (Resolved) History of cholecystectomy (Resolved) History of lung biopsy (Resolved) Hx of appendectomy (Resolved) Hx of left knee surgery (Resolved) lipoma removal (Resolved) vocal nodules removed (Resolved) Family History Mother Hypertension CVA (cerebral vascular accident) Father CVA (cerebral vascular accident) Hypertension Sister Colon cancer Grandfather Hypertension Heart disease Social History Smoking Status: Former smoker quit date: 06/20/15 pack-years: 50 second hand exposure: No alcohol intake: never substance use type: does not use 06/23/17 2830 <Electronically signed by Faye HERNANDESC> Date Faye DEMPSEY Cosigner Signature: Date (if applicable) CC: Vin Baca DO ALLERGIES ALLERGIES DATE TYPE / NAME / CODE REACTION SEVERITY SOURCE CODE 05/16/2018 Drug prochlorperazine Other - [place] Allergy/41 edisylate/[id number](R [facility] [id number]( XNORM) [facility]) Repository 05/16/2018 Drug prochlorperazine Other - [place] [facility] Allergy/41 maleate/[id number](RXN [facility] 3697968( ORM) [facility]) Repository 05/16/2018 Drug Sulfa (Sulfonamide Other - [place] Allergy/41 Antibiotics)/[id number] with blood Community 0882409( 1(RXNORM) [facility]) Repository ENCOUNTERS ENCOUNTERS ADMIT/DISCHARGE ACCOUNT NUMBER ADMITTING ENCOUNTER LOCATION SOURCE CLASS 05/16/2018/05/16/20 [id number] Emergency [address] ding:ED Repository 04/13/2018/04/13/20 [id number] Ambulatory BMSBuilding: Diamond [facility] Repository 03/30/2018/03/30/20 [id number] Emergency [address] ding:ED Repository 03/08/2018/03/13/20 [id number] HELGA YEUNG, Inpatient ABuilding:ME Smith [place] Encounter 4NRoom: Health 4605Bed: A [facility] Repository 03/07/2018 [id number] Ambulatory General acute hospital ding:MEDOUTP Repository 03/06/2018/03/08/20 [id number] LISA YEUNG., Inpatient BBuilding:MS Smith [place] Encounter URRoom: Health 0237Bed: A [facility] Repository 02/05/2018/02/06/20 [id number] Emergency [address] ding:ED Repository 12/29/2017/12/30/19 [id number] Ambulatory BMSBuilding: [place] [facility] Repository 12/26/2017/12/27/19 [id number] Ambulatory SMITH Mullins [facility] ding:OLAB [facility] Repository 12/24/2017 [id number] [facility] 12/22/2017 [id number] Ambulatory BBuilding:[facility] Repository 12/14/2017/12/15/19 [id number] Emergency [place] ding:ED Repository 12/08/2017 [id number] Ambulatory General acute hospital ding:[facility] Repository 12/08/2017/12/09/19 [id number] Ambulatory SMITH Smith [address] [place] [address] ding:[facility]AB [facility] Repository 12/07/2017/12/08/19 [id number] Ambulatory SMITH Smith [address] [place] [address] ding:[facility] Repository 11/18/2017/11/19/19 [id number] Ambulatory SMITH Smith [address] [place] [address] ding:RAD [facility] Repository 11/15/2017/11/16/19 [id number] Emergency [place] ding:ED Repository 11/14/2017/11/15/19 [id number] Emergency Diamond[address] ding:ED Repository 10/31/2017/11/02/19 [id number] LISA YEUNG., Ambulatory BBuilding:MS Smith Mullins [facility] URRoom: Health 0231Bed: A [facility] Repository 10/31/2017/11/01/19 [id number] Emergency BBuilding:ER Smith [facility] Repository 10/07/2017/10/08/19 [id number] Ambulatory SMITH Smith [address] [place] [address] ding:OLAB [facility] Repository 10/06/2017 [id number] Ambulatory General acute hospital ding:SL Repository 09/28/2017/09/29/19 [id number] [facility] 09/23/2017/09/24/19 [id number] Ambulatory SMITH Smith [address] [place] [address] ding:OLAB [facility] Repository 09/23/2017 [id number] Ambulatory BMSBuilding: Diamond [facility] Repository 09/22/2017 [id number] Ambulatory General acute hospital ding:PSN Repository 08/11/2017/08/11/19 [id number] Ambulatory [address] ding:OLAB [facility] Repository 06/23/2017/06/23/19 [id number] Ambulatory BMSBuilding: Diamond[address] Repository PAYERS PAYERS ENCOUNTER GUARANTOR PAYER SUBSCRIBER SOURCE 05/16/2018 FRANCISCO J Primary FRANCISCO J [place] [id number] [place] Insurance:MEDICARE LAXDOB: [place] PART A [facility] [id number] Hospital 95296Drs: (330) Number: Repository [phone] () [id number] Date:2018-05-16 05/16/2018 Secondary FRANCISCO J [place] Insurance:PHYSICIAN LAXDOB: [facility] [id number] Hospital Number: Repository [id number] Date:1686-47-50KP [facility] [address] [address]TO: 05/16/2018 Tertiary NOT GIVENUNK [place] Insurance:SELF PAY [facility] Number: Effective Repository Date:2018-05-16 04/13/2018 FRANCISCO J Primary FRANCISCO J [place] [id number] Insurance:MEDICARE LAXDOB: [place] A [facility] [id number] Hospital 17563Jur: (330) Number: Repository [phone] () [id number] Date:2017-12-29 04/13/2018 Secondary FRANCISCO J [place] Insurance:PHYSICIAN LAXDOB: [facility] MUTUAL INS COPolicy [id number] Hospital Number: Repository [id number] Date:4415-08-77UU [address] [address]KA: 04/13/2018 Tertiary NOT GIVENUNK [place] Insurance:SELF PAY [facility] Number: Effective Repository Date:2018-04-06 03/30/2018 FRANCISCO J Primary FRANCISCO J [place] [id number] [address] Insurance:MEDICARE LAXDOB: [place] A BPolicy [id number] Hospital 77406Vqs: (330) Number: Repository [phone] (HP) [id number] Date:2018-03-30 03/30/2018 Secondary FRANCISCO J [place] Insurance:PHYSICIAN LAXDOB: [facility] MUTUAL INS COPolicy [id number] Hospital Number: Repository [id number] Date:0844-85-97[place] [address]KZ: 03/30/2018 Tertiary NOT GIVENUNK [place] Insurance:SELF PAY [facility] Number: Effective Repository Date:2018-03-30 03/08/2018 FRANCISCO J Primary FRANCISCO J [facility] LAXDOB: Insurance:MEDICARE LAXDOB: Foundation [id number] PART APolicy Number: [id number] Repository [place] [id number] [address] [place], [place] Date:2018-03-08 - [place] [address]~GMBOBBI@ 0523-28-10Tvch 00832Hod: (330) Lynda: Name:[facility] Code [phone] [address] (HP)Tel: (000) (HP) [phone], [place] 000-0000 (WP) [address]IU: 03/08/2018 Secondary FRANCISCO J [facility] Insurance:MEDICARE LAXDOB: [facility] PART BPolicy Number: [id number] Repository [id number] [address] [place] Date:2018-03-08 - [place] 3302-20-95Bcsp [address]27[address]Wei: (330) Name:[facility] [phone] Administrators LLCPO (HP)Tel: (000) [address]Gxqyavlde, 000-0000 (WP) [place] [address]EZ: 03/08/2018 Tertiary FRANCISCO J Smith [facility] Insurance:PHYSICIANS [facility]: [id number] Repository [id number] [address] [place] Date:2018-03-08 - [place] 3355-71-13Oezy 498[address]Lbz: (330) 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 Wendy [phone] [facility] NIKO ()Tel: ([phone]) [phone]: (WP) [phone] 03/07/2018 FRANCISCO J Primary FRANCISCO J [place] [id number] [place] Insurance:MEDICARE LAXDOB: [place] PART A BPolicy [id number] Hospital 90[address]Czl: (330) Number: Repository [phone] () [id number] Date:2018-03-03 03/07/2018 Secondary FRANCISCO J [place] Insurance:PHYSICIAN LAXDOB: [facility] COPolicy [id number] Hospital Number: Repository [id number] Date:0127-33-64BW [address] [place] [address]DH: 03/07/2018 Tertiary NOT GIVENUNK [place] Insurance:SELF PAY [facility] Number: Effective Repository Date:2018-03-03 03/06/2018 FRANCISCO J Primary FRANCISCO [facility] LAXDOB: Insurance:MEDICARE LAXDOB: [facility] [id number] PART APolicy Number: [id number] Repository [place] [id number] [address] [place], [place] Date:2018-03-06 - [place] [address]~GMALLANBBI@ 1952Olmd [address]Pdz: (330) MACYCash: [facility] Code [phone] [address] ()Tel: (000) (HP) [phone], [place] 000-0000 (WP) [address]RO: 03/06/2018 Secondary FRANCISCO J Smith [facility] Insurance:MEDICARE LAXDOB: [facility] PART BPolicy Number: [id number] Repository [id number] Date:2018-03-06 - [place] 5573-84-60Ltar 006[address]Tub: (330) Name:[facility] [phone] Administrators LLCPO ()Tel: 000) [address]Znlglkcme, 000-0000 (WP) [place] [address]YX: 03/06/2018 Tertiary FRANCISCO [facility] Insurance:PHYSICIANS LAXDOB: [facility] Number: [id number] Repository [id number] [address] Date:2018-03-06 - [place] 8338-43-39Apuj [address]Ssv: (330) Name:[facility] Box [phone] NIKO Curtis ()Tel: 000) [phone]: (WP) [phone] 02/05/2018 FRANCISCO J Primary FRANCISCO J [place] [id number] [place] Insurance:MEDICARE LAXDOB: [place] A [facility] [id number] Hospital 918[address]Iri: (330) Number: Repository [phone] () [id number] Date:2018-02-05 02/05/2018 Secondary FRANCISCO J [place] Insurance:PHYSICIAN LAXDOB: [facility] [id number] Hospital Number: Repository [id number] Date:2075-95-86[address] [address]AL: 02/05/2018 Tertiary NOT GIVENUNK [place] Insurance:SELF PAY [facility] Number: Effective Repository Date:2018-02-05 12/29/2017 FRANCISCO J Primary FRANCISCO J [place] [id number] [address] Insurance:MEDICARE LAXDOB: [place] A [facility] [id number] Hospital 81252Fat: (330) Number: Repository [phone] () [id number] Date:2017-09-28 12/29/2017 Secondary FRANCISCO J [place] Insurance:PHYSICIAN LAXDOB: [facility] [id number] Hospital Number: Repository [id number] Date:8178-30-35OU [address] [place] [address]ZE: 12/29/2017 Tertiary NOT GIVENUNK [place] Insurance:SELF PAY [facility] Number: Effective Repository Date:2017-12-27 12/26/2017 FRANCISCO Ro Primary FRANCISCO J [facility] LAXDOB: Insurance:MEDICARE LAXDOB: [facility] PART BPolicy Number: [id number] Repository [place] [id number] [place], [place] Date:2017-12-26 [place], [place] [address]Efz: (741) 3133-51-10Ypln 367[address]Yac: () Name:[address]7333 Administrators LLCPO ()Tel: (000) [address]Tgpxsdgfc, 000-0000 (WP) [place] [address]GB: 12/26/2017 Secondary [facility] Insurance:PHYSICIANS LAXDOB: [facility] Number: [id number] Repository [id number] [address] Date:2017-12-26 - [place] 5211-74-71Ekzo [address]Oig: (330) 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 [phone] [place] [address] ()Tel: (751) [phone]: (WP) [phone] 12/24/2017 FRANCISCO Jayjay Primary FRANCISCO [facility] LAXDOB: Insurance:MEDICARE LAXDOB: [facility] PART BPolicy Number: [id number] Repository [place] [id number] [place], [place] Date:2017-12-24 [place], [place] [address]Bnv: 330 5535-45-16Hyfx 22719Bow: (HP) Name:[facility] [phone] Administrators LLCPO (HP)Tel: (000) [address] [address]Iuexhwmuh, 000-0000 (WP) [place] [address]HT: 12/24/2017 Secondary [facility] Health Insurance:PHYSICIANS [facility]DOB: [facility]: [id number] Repository [id number] [address] Date:2017-12-24 - [place] 5738-14-37Tqpc [address]Dwx: (330) 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 [phone] NIKO Curtis ()Tel: ([phone]) [phone]: (WP) [phone] 12/22/2017 FRANCISCO J Primary [facility] LAXDOB: Insurance:MEDICARE LAXDOB: [facility] PART BPolicy Number: [id number] Repository [place] [id number] [place] Date:2017-12-22 [place], [place] [address]Qtz: (061) 3749-84-34Fxam 75[address]Ivk: () Name:[facility] [phone] [facility] ()Tel: 000) [address] [address]Pidlevsej, 000-0000 (WP) [place] [address]CZ: 12/22/2017 Secondary [facility] Health Insurance:PHYSICIANS [facility]DOB[facility] Number: [id number] Repository [id number] [address] Date:2017-12-22 [place] 6660-94-01Ubig [address]Mew: (330) Name:[facility] Box [phone] NIKO Curtis ()Tel: ([phone]) [address]WP: (WP) [phone] 12/14/2017 FRANCISCO J Primary FRANCISCO J [place] [id number] [place] Insurance:MEDICARE LAXDOB: [place] PART A BPolicy [id number] Hospital [address]Ycz: (330) Number: Repository [phone] () [id number] Date:2017-12-14 12/14/2017 Secondary FRANCISCO J [place] Insurance:PHYSICIAN LAXDOB: [facility] INS COPolicy [id number] Hospital Number: Repository [id number] Date:3846-42-91ZM [address] [place], [place] [address] [address]DP: 12/14/2017 Tertiary NOT GIVENUNK [place] Insurance:SELF PAY [facility] Number: Effective Repository Date:2017-12-14 12/08/2017 FRANCISCO J Primary NOT GIVENUNK [place] [id number] [place] Insurance:SELF PAY [facility] [address]Pfp: (330) Number: Effective Repository [phone] () Date:2017-12-08 12/08/2017 FRANCISCO J Primary FRANCISCO [facility] LAXDOB: Insurance:MEDICARE LAXDOB: [facility] PART BPolicy Number: [id number] Repository [place] [id number] [place] Date:2017-12-08 - [place], [place] [address]Hze: (086) 6393-88-49Mpni 24055Zii: () Name:[facility] [phone] [facility] ()Tel: 000) [address]Iffkttnas, 000-0000 (WP) [place] [address]HZ: 12/08/2017 Secondary [facility] Health Insurance:PHYSICIANS LAXDOB: [facility] Number: [id number] Repository [id number] [address] Date:2017-12-08 - [place] 4884-61-14Prgb 75[address]Nrw: (330) 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 [phone] NIKO Curtis ()Tel: ([phone]) [phone]: (WP) [phone] 12/07/2017 FRANCISCO J Primary FRANCISCO [facility] LAXDOB: Insurance:MEDICARE LAXDOB: [facility] PART BPolicy Number: [id number] Repository [place] [id number] [address] [place] Date:2017-12-07 - [place], [place] [address]Ybr: 330 0651-36-60Mbsc 43152Ptg: (HP) Name:[facility] [phone] Administrators LLCPO (HP)Tel: (000) [address] [address]Rkxqhekyb, 000-0000 (WP) [place] [address]EM: 12/07/2017 Secondary [facility] Health Insurance:PHYSICIANS LAXB: [facility]: [id number] Repository [id number] [address] [place] Date:2017-12-07 - [place] 2342-63-88Rhef [address]Dvw: (330) Name:[address]6459 [facility] HospitalNIKO Philip ()Tel: (122) [phone]: (WP) [phone] 11/18/2017 FRANCISCO Ro Primary [facility] LAXDOB: Insurance:MEDICARE LAXDOB: [facility] [id number] [facility] BPolicy Number: [id number] Repository [place] [id number] [address] [place] Date:2017-11-18 - [place], [place] [address]Qxj: 330 7709-29-92Dbfn 14422Eks: (HP) Name:[facility] [phone] Administrators LLCPO (HP)Tel: (000) [address] 516[address]Hzkuyhcjr, 000-0000 (WP) [place] [address]DZ: 11/18/2017 Secondary [facility] Health Insurance:PHYSICIANS [facility]DOB: [facility] Number: [id number] Repository [id number] [address] [place] Date:2017-11-18 - [place] 0327-42-66Xbab [address]Zrg: (330) Name:[place] [address] NIKO Curtis ()Tel: (896) [phone]: (WP) [phone] 11/15/2017 FRANCISCO Ro Primary FRANCISCO [facility] [id number] [place] Insurance:MEDICARE LAXDOB: [place] PART A olicy [id number] Hospital 205[address]Cfg: Number: Repository [phone] [id number] (HP) Date:2017-11-15 11/15/2017 Secondary FRANCISCO J Diamond Insurance:PHYSICIAN LAXDOB: [facility] MUTUAL INS [facility] [id number] Hospital Number: Repository [id number] Date:7402-86-81[address] [address]AW: 11/15/2017 Tertiary NOT GIVENUNK [place] Insurance:SELF PAY [facility] Number: Effective Repository Date:2017-11-15 11/14/2017 FRANCISCO J Primary FRANCISCO J [place] [id number] [place] Insurance:MEDICARE LAXDOB: [place] PART A olic [id number] Hospital 00923Imn: Number: Repository [phone] [id number] (HP) Date:2017-11-14 11/14/2017 Secondary FRANCISCO J [place] Insurance:PHYSICIAN LAXDOB: [facility] [id number] Hospital Number: Repository [id number] Date:3079-59-11RU [address] [place] [address]CH: 11/14/2017 Tertiary NOT GIVENUNK [place] Insurance:SELF PAY [facility] Number: Effective Repository Date:2017-11-14 10/31/2017 FRANCISCO J Primary FRANCISCO [facility] LAXDOB: Insurance:MEDICARE LAXDOB: [facility] [id number] PART olicy Number: [id number] Repository [place] [id number] [address] [place] Date:2017-10-31 - [place], [place] [address]Wqu: (755) 8462-55-04Qwse 435[address]Rxk: (HP) Name:[facility] [phone] Administrators LLCPO (HP)Tel: 000) [address] 06[address]Vuktfkcpi, 000-0000 (WP) [place] [address]TO: 10/31/2017 Secondary [facility] Health Insurance:PHYSICIANS LAXDOB: [facility] Number: [id number] Repository [id number] [address] [place] Date:2017-10-31 - [place] 6834-92-58Dzcz [address]Wql: (330) Name:[facility] Box [phone] NIKO Curtis ()Tel: (532) [phone]: (WP) [phone] 10/31/2017 FRANCISCO J Primary [facility] LAXDOB: Insurance:MEDICARE LAXDOB: [facility] PART BPolicy Number: [id number] Repository [place] [id number] [address] [place] Date:2017-10-31 [place], [place] [address]Eaf: (330 3210-51-72Fsvf 214[address]Asn: () Name:[place] [phone] Administrators LLCPO (HP)Tel: 000) [address]Pbzltykzg, 000-0000 (WP) [place] [address]WQ: 10/31/2017 Secondary [facility] Health Insurance:PHYSICIANS [facility] Number: [id number] Repository [id number] [address] [place] Date:2017-10-31 - [place] 2290-12-58Jtqz [address]Ndd: (330) Name:[facility] [phone] NIKO Curtis ()Tel: (165) [phone]: (WP) [phone] 10/07/2017 FRANCISCO J Primary [facility] LAXDOB: Insurance:MEDICARE LAXDOB: [facility] PART BPolicy Number: [id number] Repository [place] [id number] [address] [place] Date:2017-10-07 [place], [place] [address]Xqd: (330 8844-77-75Tjvr 18478Cqj: () Name:[facility] [phone] Administrators LLCPO ()Tel: 000) [address] [address]39[address]Csoqkdmfm, 000-0000 (WP) [place] [address]BW: 10/07/2017 Secondary FRANCISCO Jayjay Marinelli [facility] Insurance:PHYSICIANS LAXDOB: [facility] Number: [id number] Repository [id number] [address] [place] Date:2017-10-07 - [place] 8293-77-02Elzh 22568Tju: (330) 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 [phone] NIKO Curtis ()Tel: ([phone]) [address]WP: (WP) [phone] 10/06/2017 FRANCISCO J Primary FRANCISCO J Diamond [id number] [place] Insurance:MEDICARE LAXDOB: [place] PART A [facility] [id number] Hospital [address]Diu: Number: Repository [phone] [id number] () Date:2017-09-28 10/06/2017 Secondary FRANCISCO J [place] Insurance:PHYSICIAN LAXDOB: [facility] INS [facility] [id number] Hospital Number: Repository [id number] Date:2219-55-63SF B[address] NIKO CURTIS [address]MB: 10/06/2017 Tertiary NOT GIVENUNK [place] Insurance:SELF PAY [facility] Hospital Number: Effective Repository Date:2017-09-28 09/28/2017 FRANCISCO J Primary FRANCISCO J [place] [id number] [place] Insurance:MEDICARE LAXDOB: [place] A [facility] [id number] Hospital 805[address]Xgu: Number: Repository [phone] [id number] () Date:2017-06-23 09/28/2017 Secondary FRANCISCO J [place] Insurance:PHYSICIAN LAXDOB: [facility] [id number] Hospital Number: Repository [id number] Date:9185-51-01UV [address] [place] [address]JT: 09/28/2017 Tertiary NOT GIVENUNK Diamond Insurance:SELF PAY [facility] Number: Effective Repository Date:2017-09-28 09/23/2017 FRANCISCO J Primary FRANCISCO [facility] LAXDOB: Insurance:MEDICARE LAXDOB: [facility] [id number] PART BPolicy Number: [id number] Repository [place] [id number] [address] [place], [place] Date:2017-09-23 - [place], [place] [address]Vxv: (800) 4880-28-74Qenz 38372Bak: () Name:[facility] [phone] [facility] LLCPO ()Tel: 000) [address] [address]Rsmxftqit, 000-0000 (WP) [place] [address]SS: 09/23/2017 Secondary FRANCISCO [facility] Health Insurance:PHYSICIANS LAXDOB: [facility] Number: [id number] Repository [id number] [address] [place] Date:2017-09-23 - [place] 0164-44-54Pjlt 18010Lok: (510) Name:[facility] [phone] [place] [address] ()Tel: (330) [address]WP: (WP) [phone] 09/23/2017 FRANCISCO Ro Primary FRANCISCO J Diamond [id number] [place] Insurance:MEDICARE LAXDOB: [place] PART A olicy [id number] Hospital 060[address]Xph: Number: Repository [phone] [id number] () Date:2017-06-23 09/23/2017 Secondary FRANCISCO J [place] Insurance:PHYSICIAN LAXDOB: [facility] [id number] Hospital Number: Repository [id number] Date:7006-51-48VF [address] [address]OZ: 09/23/2017 Tertiary NOT GIVENUNK [place] Insurance:SELF PAY [facility] Number: Effective Repository Date:2017-09-23 09/22/2017 FRANCISCO J Primary FRANCISCO J Diamond [id number] [place] Insurance:MEDICARE LAXDOB: [place] PART A BPolicy [id number] [address]Jga: Number: Repository [phone] [id number] (HP) Date:2017-06-23 09/22/2017 Secondary FRANCISCO J Diamond Insurance:PHYSICIAN [id number] Number: Repository [id number] Date:[id number] [place], [place] [address] [address]PS: 09/22/2017 Tertiary NOT GIVENUNK [place] Insurance:SELF PAY [facility] Number: Effective Repository Date:2017-06-23 08/11/2017 FRANCISCO J Primary FRANCISCO [facility] LAXDOB: Insurance:MEDICARE LAXDOB: [facility] [id number] PART olic Number: [id number] Repository [address] [id number] [place], [place] Date:2017-08-11 - [place], [place] [address]Imj: [id number]: () Name:[place] [id number] [facility] ()Tel: (000) [address] [address]Csjuhkubm, [id number] ([place]) [place] [address]UE: 08/11/2017 Secondary [facility] Health Insurance:PHYSICIANS LAXDOB: [facility] [place] Number: [id number] Repository [id number] Date:2017-08-11 - [place], [place] [id number]: [phone] 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 [phone] NIKO Curtis ()Tel: [phone]: [phone] 06/23/2017 Evgeny [id number] Primary FRANCISCO J [place] Vic[place] Insurance:MEDICARE LAXDOB: [place], [place] PART A [facility] [id number] [id number]: [phone]) Number: Repository [phone] [id number] Date:2017-06-14 06/23/2017 Secondary NOT GIVENUNK [place] Insurance:[facility] Number: Repository [id number] Date:[id number] WENDY [address] [place] [address] [place] [address]DC: 06/23/2017 Tertiary NOT GIVENUNK Diamond Insurance:SELF PAY [facility] Number: Effective Repository Date:2017-06-14
== END 2018-05-16 21:29 | disposition left against medical advice (07) ==
PROVIDERS: Emergency Provider Emergency Medicine; Family Provider Family Medicine; PCP Family Medicine
DX: R41.82 Altered mental status, unspecified (principal); J44.9 Chronic obstructive pulmonary disease, unspecified; J84.10 Pulmonary fibrosis, unspecified; F17.200 Nicotine dependence, unspecified, uncomplicated; R29.6 Repeated falls; Z86.73 Personal history of transient ischemic attack (TIA), and cerebral infarction without residual deficits; Z79.82 Long term (current) use of aspirin; Z79.899 Other long term (current) drug therapy
CPT/HCPCS: 36600; 70450; 71046; 80053; 81001; 82803; 84484; 85025; 93005; 99283; A4216

== ENCOUNTER 2018-06-14 18:14 | Emergency (ER) | payer MEDICARE, OTHER, SELFPAY ==
[2018-06-14 18:16] VITALS: BP 136/84; PULSE 88; RESP 14; TEMP 36.6; O2SAT 99; BMI 21.2
[2018-06-14 19:18] VITALS: BP 141/67; PULSE 81; RESP 18; O2SAT 97
--- NOTE | 2018-06-14 20:00 | ED.VISSUMM ---
- ER Visit Summary Date of Service: 06/14/18 Chief Complaint: Acute headache History of Present Illness: The patient is a 68 F history of prior strokes, cochlear implant and migraine headaches. She has had migraine headaches for many years. She states this 1 started yesterday morning. Gradual onset worsening. Associated nausea no vomiting or diarrhea. Positive photophobia. No fever. No sinus congestion. She is on no blood thinners. She denies any trouble using her arms or legs. Physical Examination: Well-appearing older female. Vital signs are stable afebrile. HEENT exam atraumatic. Pupils round reactive light. No facial droop. Normal speech. No sinus tenderness. Neck nontender no meningismus. Lungs clear to auscultation bilaterally. Heart regular rhythm no murmur. Abdomen soft nontender. Extremities moving all 4. Calves nontender without edema. Back exam nontender. Neurologically she is awake and alert. Answers questions. No facial droop. Extraocular motions are intact. Normal speech. Equal symmetrical 5 out of 5 complex human resources manager strength. Fingertip to nose within normal limits bilaterally. [id number] within normal limits bilaterally. Dorsi plantar flexion intact. 5 out of 5 motor strength and sensation both lower extremities. She can raise either leg off the bed. Her NIH score is 0. Test Results: None. Patient has had a recent CAT scan within the last month which showed chronic changes. Emergency Department Course and Treatment: Treated with IV fluids, IV Phenergan, IV DHE, IV Benadryl. Patient personally requested IV Toradol. States she gets it with all of her headaches and is. We discussed treating with Toradol given her age but she has normal renal function and I will proceed with the Toradol. On repeat exam at 2126 patient states I feel wonderful. Her headache is completely resolved. Her neurologic exam remains normal. She and her are comfortable with her being discharged home. Treatment Plan: Follow-up with your doctor as needed. Return if worse. Disposition: Discharge Impression: Acute cephalgia secondary to acute migraine This note was generated with [employer] dictation software. It may contain incorrect words, spelling, and punctuation that were not noted in review of the chart prior to signing ED Disposition - Plan for ED Patient: Chief Complaint: Headache Referrals: Vin Baca DO [Primary Care Provider] -
--- NOTE | 2018-06-14 20:03 | ED.DCSUM_ITS ---
- ER Visit Summary Date of Service: 06/14/18 Chief Complaint: Acute headache History of Present Illness: The patient is a 68 F history of prior strokes, cochlear implant and migraine headaches. She has had migraine headaches for many years. She states this 1 started yesterday morning. Gradual onset worse gerber. Associated nausea no vomiting or diarrhea. Positive photophobia. No fever. No sinus congestion. She is on no blood thinners. She denies any trouble using her arms or legs. Physical Examination: Well-appearing older female. Vital signs are stable afebrile. HEENT exam atraumatic. Pupils round reactive light. No facial droop. Normal speech. No sinus tenderness. Neck nontender no meningismus. Lungs clear to auscultation bilaterally. Heart regular rhythm no murmur. Abdomen soft nontender. Extremities moving all 4. Calves nontender without edema. Back exam nontender. Neurologically she is awake and alert. Answers questions. No facial droop. Extraocular motions are intact. Normal speech. Equal symmetrical 5 out of 5 industrial staff nurse strength. Fingertip to nose within normal limits bilaterally. [id number] within normal limits bilaterally. Dorsi plantar flexion intact. 5 out of 5 motor strength and sensation both lower extremities. She can raise either leg off the bed. Her NIH score is 0. Test Results: None. Patient has had a recent CAT scan within the last month which showed chronic changes. Emergency Department Course and Treatment: Treated with IV fluids, IV Phenergan, IV DHE, IV Benadryl. Patient personally requested IV Toradol. States she gets it with all of her headaches and is. We discussed treating with Toradol given her age but she has normal renal function and I will proceed with the Toradol. On repeat exam at 2126 patient states I feel wonderful. Her headache is completely resolved. Her neurologic exam remains normal. She and her are comfortable with her being discharged home. Treatment Plan: Follow-up with your doctor as needed. Return if worse. Disposition: Discharge Impression: Acute cephalgia secondary to acute migraine This note was generated with [employer] dictation software. It may contain incorrect words, spelling, and punctuation that were not noted in review of the chart prior to signing ED Disposition - Plan for ED Patient: Chief Complaint: Headache Referrals: Vin Baca DO [Primary Care Provider] -
[2018-06-14] MEDS: 0.9% Normal Saline 1,000 ML 1000 ML IV (20:12)
[2018-06-14] MEDS: Ketorolac 30 MG/ML Syringe IV (20:12)
[2018-06-14] MEDS: DiphenhydrAMINE 50 MG/ML Syringe 25 MG IV (20:14)
[2018-06-14] MEDS: proMETHazine 25 MG/ML Syringe 12.5 MG IV (20:16)
[2018-06-14] MEDS: Dihydroergotamine 1 MG/ML Ampul IV (20:18)
--- NOTE | 2018-06-14 21:30 | ED.DEP ---
ED Disposition - Plan for ED Patient: Disposition: Home or Assisted Living Chief Complaint: Headache Instructions: ED Headache Migraine Referrals: Vin Baca DO [Primary Care Provider] - As Needed Additional Instructions: Plenty of fluids and rest. Return if feeling worse.
[2018-06-14 21:42] VITALS: BP 131/76; PULSE 81; RESP 20; O2SAT 97
--- NOTE | 2018-06-14 21:43 | ED.RN ---
THIS NURSE REVIEWED D/C INSTRUCTIONS WITH PT. PT VERBALIZED UNDERSTANDING OF INSTRUCTIONS. PORT DE-ACCESSED. FLUSHED WITH NS AND HEPARIN. PT TOLERATED WELL. PT DENIES FURTHER NEEDS OR QUESTIONS AT THIS TIME. PT DECLINES ASSISTANCE TO VEHICLE. PT HAS PERSONAL W/C IN THE ROOM AND HELPING
== END 2018-06-14 21:45 | disposition home or self-care (01) ==
PROVIDERS: Emergency Provider Emergency Medicine; Family Provider Family Medicine; PCP Family Medicine
DX: G43.909 Migraine, unspecified, not intractable, without status migrainosus (principal); J44.9 Chronic obstructive pulmonary disease, unspecified; Z86.73 Personal history of transient ischemic attack (TIA), and cerebral infarction without residual deficits; Z79.899 Other long term (current) drug therapy
CPT/HCPCS: 96361; 96374; 96375; 99282; J7030; A4216; J1110

== ENCOUNTER → 2018-06-22 15:02 | Outpatient (CLI) | payer MEDICARE, OTHER, SELFPAY ==
[2018-06-14 18:16] VITALS: BMI 21.2
[2018-06-22 16:30] LABS: BUN 9 mg/dL (7-18); Creatinine, Serum 0.96 mg/dL (0.55-1.02); EST Glomerular Filtration Rate 62 mL/min (>60); Glucose 82 mg/dL (74-106)
[2018-06-22 16:31] LABS: AST(SGOT) 12 U/L (15-37); Alanine Aminotransfer ALT/SGPT 14 U/L (13-56); Albumin, Serum 3.5 g/dL (3.2-5.0); Alkaline Phosphatase 97 U/L (45-117); Anion Gap 9 (5-15); BUN/Creat Ratio 9.4 RATIO (10-20); Calcium,Total 8.1 mg/dL (8.5-10.1); Chloride 107 mmol/L (98-107); Est Glom Filt Rate - Afr Amer 75 mL/min (>60); Globulin 3.5 g/dL (2.2-4.2); Potassium 4.2 mmol/L (3.5-5.1); Sodium Level 140 mmol/L (136-145); T4 Free Direct 1.59 ng/dL (0.76-1.46); Thyroid Stim Hormone (TSH) 0.03 uIU/mL (0.358-3.74)
== END ==
PROVIDERS: Family Provider Family Medicine; PCP Family Medicine; Referring Provider Internal Medicine Endocrinology, Diabetes & Metabolism; Visit Provider Internal Medicine Endocrinology, Diabetes & Metabolism
DX: E89.0 Postprocedural hypothyroidism (principal)
CPT/HCPCS: 36591; 80053; 84439; 84443; A4216

== ENCOUNTER 2018-06-23 17:34 | Emergency (ER) | payer MEDICARE, OTHER, SELFPAY ==
[2018-06-23 17:36] VITALS: BP 154/92; PULSE 115; RESP 19; TEMP 36.6; O2SAT 97; BMI 21.2
--- NOTE | 2018-06-23 18:29 | ED.DCSUM_ITS ---
- ER Visit Summary Date of Service: 06/23/18 Chief Complaint: Ongoing headache History of Present Illness: The patient is a 68 F history of prior CVA, COPD, pulmonary fibrosis and migraines. Patient states he has had a migraine since yesterday as typical on the right side. Associated nausea no vomiting. No trauma. No sinus congestion. No fever or neck pain. She is on no blood thinners. Worse with light. No trouble moving her arms or legs. No recent falls. Physical Examination: Older female no acute distress seated in a darkened room. Vital signs are stable. She is afebrile. He does not look septic or toxic. H EENT exam pupils round reactive light. Photophobic. No facial droop. Normal speech. Extraocular motions intact. Neck nontender. No lymphadenopathy. No meningismus. Able to touch chin to chest. Lungs clear to auscultation bilaterally. Heart regular rhythm no murmur. Abdomen soft nontender. Patient moving all 4 extremities. Neurovascular intact. Equal symmetrical 5 out of 5 supervisor policy change clerks strength. Dorsi plantar flexion intact. 5 out of 5 motor. Fingertip to nose within normal limits. Neurologically she is awake alert with no focal motor or sensory deficits. NIH score is 0. Test Results: None Emergency Department Course and Treatment: Patient treated with IV fluids, Toradol, Benadryl, Phenergan and DHE. Repeat exam her headache is resolving. Neurologic exam remains normal. She prefers to be discharged home. Treatment Plan: Return if feeling worse. Disposition: Discharge Impression: Acute migraine headache with a history of migraines This note was generated with [employer] dictation software. It may contain incorrect words, spelling, and punctuation that were not noted in review of the chart prior to signing ED Disposition - Plan for ED Patient: Chief Complaint: Headache Referrals: Vin Baca DO [Primary Care Provider] -
--- NOTE | 2018-06-23 18:29 | ED.DEP ---
ED Disposition - Plan for ED Patient: Disposition: Home or Assisted Living Chief Complaint: Headache Instructions: ED Headache Migraine Referrals: Vin Baca DO [Primary Care Provider] - As Needed Additional Instructions: Plenty of fluids and rest. Return if feeling worse. Follow-up with your doctor as needed.
[2018-06-23] MEDS: 0.9% Normal Saline 1,000 ML 1000 ML IV (18:59)
[2018-06-23] MEDS: DiphenhydrAMINE 50 MG/ML Syringe 25 MG IV (18:59)
[2018-06-23] MEDS: proMETHazine 25 MG/ML Syringe 12.5 MG IV (19:00)
[2018-06-23] MEDS: Dihydroergotamine 1 MG/ML Ampul IV (19:01)
[2018-06-23] MEDS: Ketorolac 15 MG/ML Vial IV (19:01)
== END 2018-06-23 19:33 | disposition home or self-care (01) ==
PROVIDERS: Emergency Provider Emergency Medicine; Family Provider Family Medicine; PCP Family Medicine
DX: G43.909 Migraine, unspecified, not intractable, without status migrainosus (principal); J44.9 Chronic obstructive pulmonary disease, unspecified; J84.10 Pulmonary fibrosis, unspecified; Z86.73 Personal history of transient ischemic attack (TIA), and cerebral infarction without residual deficits; Z79.899 Other long term (current) drug therapy; Z72.0 Tobacco use
CPT/HCPCS: 96361; 96374; 96375; 99281; J7030; A4216; J1110

== ENCOUNTER → 2018-07-06 12:57 | Outpatient (CLI) | payer MEDICARE, OTHER, SELFPAY ==
[2018-06-23 17:36] VITALS: BMI 21.2
--- NOTE | 2018-07-07 10:53 | PFT ---
INTRODUCTION: The patient is a 68-year-old female that presents for pulmonary function testing secondary to a diagnosis of respiratory failure. Respiratory therapy reports good patient effort. Bronchodilators were used during testing. INTERPRETATION: Forced expiration spirometry demonstrates the presence of a severe large airways obstructive ventilatory defect. There was no significant response to aerosolized bronchodilators, based upon strict ATS criteria. Spirograms are of good quality and plateau normally. Body plethysmography was performed and reveals a decreased TLC to 4.16 L, 74% of predicted, indicative of a mild restrictive ventilatory defect. The remainder of the lung volumes are symmetrically reduced. Diffusing capacity by single breath CO is also reduced at 41% of predicted. When compared to previous pulmonary function studies dated September 2017, there has been an 8% reduction in FEV1. 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
--- OUTSIDE RECORDS SUMMARY | 2018-09-10 05:31 | XMS RPT_ITS ---
:1950 Author Organization [place] Support Name Relationship Address Phone LAZARO HERNANDEZ Unavailable [address] + [place] [address] R Unavailable Unavailable Unavailable LAX, LAZARO Unavailable [address] + [place] [address] R Unavailable Unavailable Unavailable LAX, LAZARO Unavailable [address] + [place] [address] R Unavailable Unavailable Unavailable LAX, LAZARO Unavailable [address] + [place] [address] R Unavailable Unavailable Unavailable LAX, LAZARO Unavailable [address] + [place] [address] R Unavailable Unavailable Unavailable LAX, LAZARO Unavailable [address] + [place] [address] R Unavailable Unavailable Unavailable LAX, LAZARO Unavailable [address] + [place] [address] R Unavailable Unavailable Unavailable LAX, LAZARO Unavailable [address] + [place] [address] R Unavailable Unavailable Unavailable LAX, LAZARO Unavailable [address] + [place] [address] R Unavailable Unavailable Unavailable LAX, LAZARO Unavailable [address] + [place] [address] R Unavailable Unavailable Unavailable LAX, LAZARO Unavailable [address] + [place] [address] R Unavailable Unavailable Unavailable LAX, LAZARO Unavailable [address] + [place] [address] R Unavailable Unavailable Unavailable LAX, LAZARO Unavailable [address] + [place] [address] LAX, LAZARO Unavailable [address] + [place] [address] LAX, LAZARO Unavailable [address] + [place] [address] R Unavailable Unavailable Unavailable LAX, LAZARO Unavailable [address] + [place] [address] LAX, LAZARO Unavailable [address] + [place] [address] LAX, LAZARO Unavailable [address] + [place] [address] R Unavailable Unavailable Unavailable LAX, LAZARO Unavailable [address] + [place] [address] R Unavailable Unavailable Unavailable LAX, LAZARO Unavailable [address] + [place] [address] LAX, LAZARO Unavailable [address] + [place] [address] LAX, LAZARO Unavailable [address] + [place] [address] LAX, LAZARO Unavailable [address] + [place] [address] LAX, LAZARO Unavailable [address] + [place] [address] LAX, LAZARO Unavailable [address] + [place] [address] LAX, LAZARO Unavailable [address] + [place] [address] R Unavailable Unavailable Unavailable LAX, LAZARO Unavailable [address] + [place] [address] R Unavailable Unavailable Unavailable LAX, LAZARO Unavailable [address] + [place] [address] LAX, LAZARO Unavailable [address] + [place] [address] LAX, LAZARO Unavailable [address] + [facility] [address] LAX, LAZARO Unavailable [address] + [place] [address] LAX, LAZARO Unavailable [address] + [place] [address] LAX, LAZARO Unavailable [address] + [place] [address] LAX, LAZARO Unavailable [address] [phone] [place] [address] R Unavailable Unavailable Unavailable LAX, LAZARO Unavailable [address] [phone] [place] [address] R Unavailable Unavailable Unavailable LAX, LAZARO Unavailable [address] + [place] [address] LAX, LAZARO Unavailable [address] + [place] [address] LAX, LAZARO Unavailable [address] + [place] [address] LAX, LAZARO Unavailable [address] + [place] [address] LAX, LAZARO Unavailable [address] + [place] [address] LAX, LAZARO Unavailable [address] + [place] [address] LAX, LAZARO Unavailable [address] [phone] [place] [address] R Unavailable Unavailable Unavailable LAX, LAZARO Unavailable [address] [phone] [place] [address] R Unavailable Unavailable Unavailable LAX, LAZARO Unavailable [address] + [place] [address] LAX, LAZARO Unavailable [address] + [place] [address] LAX, LAZARO Unavailable [address] [phone] [place] [address] R Unavailable Unavailable Unavailable LAX, LAZARO Unavailable [address] [phone] [place] [address] R Unavailable Unavailable Unavailable LAX, LAZARO Unavailable [address] + [place] [address] LAX, LAZARO Unavailable [address] + [place] [address] Care Team Providers Name Role Phone ALISHA SPRINGER MD Attending Unavailable PHUONG DO, VIN D Primary Care Unavailable ALISHA SPRINGER MD Attending Unavailable PHUONG DO, VIN D Primary Care Unavailable ALISHA SPRINGER MD Attending Unavailable PHUONG DO, VIN D Primary Care Unavailable CARLY GARRIDO MD Attending Unavailable PHUONG DO, VIN D Primary Care Unavailable PHUONG DO, VIN D Primary Care Unavailable LISA FRANCE MD. KARLI Gaspar Admitting Unavailable LISA FRANCE MD. KARLI Gaspar Attending Unavailable PHUONG DO, VIN D Primary Care Unavailable EDGAR FRANCE, DR. Antonieta LOTT Attending Unavailable VIN DUVALL MD Attending Unavailable PHUONG DO, VIN D Primary Care Unavailable VIN DUVALL MD Attending Unavailable PHUONG DO, VIN D Primary Care Unavailable ALISHA SPRINGER MD Attending Unavailable PHUONG DO, VIN D Primary Care Unavailable ALISHA SPRINGER MD Attending Unavailable PHUONG DO, VIN D Primary Care Unavailable ALISHA SPRINGER MD Attending Unavailable PHUONG DO, VIN D Primary Care Unavailable PHUONG DO, VIN D Primary Care Unavailable LISA FRANCE MD. KARLI Gaspar Admitting Unavailable LISA FRANCE MD. KRALI Gaspar Attending Unavailable AMBAR PARTIDA MD Consulting Unavailable LISA FRANCE MD. KARLI Gaspar Consulting Unavailable AMBAR PARTIDA MD Admitting Unavailable AMBAR PARTIDA MD Attending Unavailable PHUONG DO, VIN D Primary Care Unavailable PHUONG DO, VIN D Consulting Unavailable DR. LUIS F KENNEY DO Consulting Unavailable ELVIE PEDROZA MD Consulting Unavailable GLADIS MARTINI MD Consulting Unavailable AMBAR PARTIDA MD Consulting Unavailable Phuong, Vin Primary Care Unavailable Eduard Cline Attending Unavailable Alisha Springer Attending Unavailable Alisha Springer Referring Unavailable [place], Vin Primary Care Unavailable [place], Vin Consulting Unavailable Gerry Diallo Attending Unavailable Gerry Diallo Referring Unavailable Phuong, Vin Primary Care Unavailable Phuong, Vin Primary Care Unavailable Eduard Cline Attending Unavailable [place], Vin Primary Care Unavailable Paintsil, Glenallen Admitting Unavailable Paintsil, Glenallen Attending Unavailable Paintsil, Glenallen Referring Unavailable Means, Sander Consulting Unavailable Paintsil, [place]allen Admitting Unavailable Paintsil, [place]en Attending Unavailable Paintsil, [place]en Referring Unavailable Phuong, Vin Primary Care Unavailable Paintsil, [place]en Consulting Unavailable Ana, Faye Attending Unavailable Perez, Faye Referring Unavailable [place], Vin Primary Care Unavailable Yoel, Gerry Attending Unavailable Phuong, Vin Referring Unavailable [place], Vin Primary Care Unavailable Yoel, Gerry Attending Unavailable Ana, Faye Referring Unavailable YoelGerry marquez Attending Unavailable [place], Vin Primary Care Unavailable Phuong, Vin Primary Care Unavailable Josh Bermudez Attending Unavailable Paintsil, [place] Admitting Unavailable Paintsil, [place]en Attending Unavailable Paintsil, [place] Referring Unavailable Phuong, Vin Primary Care Unavailable Yoel, Gerry Consulting Unavailable Means, Sander Consulting Unavailable Paint[place], Glenallen Consulting Unavailable Og Prather D.O. Attending Unavailable Yoel, Gerry Referring Unavailable Paint[place], [place]en Admitting Unavailable Paintsil, [place]en Attending Unavailable Paintsil, [place]en Referring Unavailable Phuong, Vin Primary Care Unavailable Means, Sander Consulting Unavailable Paint[place], [place]en Consulting Unavailable [place], Vin Primary Care Unavailable Marin Kraft Attending Unavailable DOCTOR, OUT OF TOWN Attending Unavailable Phuong, Vin Primary Care Unavailable Kassie Guzmán Attending Unavailable Faye Perez Attending Unavailable [place], Vin Referring Unavailable [place], Vin Primary Care Unavailable Phuong, Vin Primary Care Unavailable Harshad Connors Attending Unavailable Phuong, Vin Attending Unavailable Phuong, Vin Referring Unavailable [place], Vin Primary Care Unavailable Phuong, Vin Primary Care Unavailable Josh Bermudez Attending Unavailable Gerry Diallo Attending Unavailable Phuong, Vin Referring Unavailable [place], Vin Primary Care Unavailable Chato Allen Attending Unavailable PROBLEMS PROBLEMS DATE TYPE CONDITION / CODE ATTENDING STATUS SOURCE 07/14/2018 Unknown J96.22 - Acute Irma Edward and [facility] failure with Repository hypercapnia / J96.22(ICD-10) 04/13/2018 Unknown J44.9 - Chronic Gerry Diallo Active [facility] disease, Repository unspecified / J44.9(ICD-10) 10/06/2017 Unknown G47.33 - Gerry Diallo Active [facility] ap[facility] (pediatric) / Repository G47.33(ICD-10) PROCEDURES PROCEDURES No Procedure Records FoundRESULTS RESULTS VALPROIC ACID Collected: 07/15/2018 Status: F Source: DIAMOND (DEPAKENE) LEVEL 9:30 AM [facility] REPOSITORY TYPE CODE TESTS RESULT OUT OF REFERENCE UNITS RANGE LAB L501.8100 50-100 ug/mL Low VALPROIC ACID 32 Performed By: #### L501.8100 #### [facility] [address] [place], [address] ELECTROENCEPHALOGRAM Observed: 07/15/2018 Status: F Source: DIAMOND 8:40 AM [facility] REPOSITORY [facility] Pulmonary Services/Neurology [address] [place] [address] MR#: [id number] Acct: [id number] Name: FRANCISCO HERNANDEZ Rep #: [id number] : 1950 68 From: Snader Means MD Referring Dr: Shayy Patel MD Status: ADM IN Ordering Dr: Date: Location: [place] [address] Sex: F C - Electroencephalogram date of service 07/14/17 18 channel eeg is performed using the international 10-20 electrode placement system along with ecg reference leads and photic stimulation on this 68 yo female with history of stroke and seizure. background activity is mildly slow at 6-7 hz symmetrically. the patient remained awake throughout the recording without lateralizing or epileptiform changes. photic produces a normal driving response. impression: abnormal eeg due to mild slowing, no epileptiform changes noted 07/15/18839 <Electronically signed by Sander Means MD> Date Sander Means MD CC: Shayy Patel MD; Vin Baca DO; Sander Means MD Date Dictated: 07/15/18823 Date Transcribed: 07/15/18823 Warp Tying Machine Knotter: NF Signed BRAIN/HEAD WITHOUT Observed: 07/15/2018 Status: F Source: DIAMOND CONTRAST 8:40 AM [facility] REPOSITORY [facility] Imaging Services [address] [place] [address] Brain/Head without Contrast MR#: [id number] Acct: [id number] Name: FRANCISCO HERNANDEZ #: [id number] : 1950 F 68 From: Bob Angulo MD PCP: Vin Baca DO Status: ADM IN Study: Brain/Head without Contrast Date of Exam: 07/15/18 Exam# [id number] Ordering Dr: Sander Means MD STUDY: CT BRAIN WITHOUT CONTRAST REASON FOR EXAM: Female, 68 years old. CVA, cochlear implant RADIATION DOSAGE (If Supplied By Facility): CTDIvol = ( 44.99 ) mGy, DLP = ( 762.36 ) mGycm TECHNIQUE: Transaxial CT imaging of the brain was performed without administration of intravenous contrast material. Individualized dose optimization techniques were used for this CT. COMPARISON: 07/13/2018 FINDINGS: Left sided cochlear implant similar causing mild degree of artifact. Left mastoidectomy again identified. Normal calvarium. There is mild cerebral atrophy with widening of the extra- axial spaces and ventricular dilatation. There are areas of decreased attenuation within the white matter tracts of the supratentorial brain, consistent with microvascular disease changes. Normal basal ganglia and thalami. Normal brainstem. Normal cerebellum. There is no intracranial hemorrhage. Localized area of decreased density along the medial right parietal lobe adjacent to the falx is stable since the prior study. Minimal diminished density along the right occipital lobe is also stable. Normal visualized paranasal sinuses. CT/Brain/Head without Contrast IMPRESSION: 1. No acute intracranial hemorrhage or evolving infarction. 2. Stable right parietal and occipital lobe infarctions (since 05/16/2018). 3. Central parenchymal volume loss. White matter changes that are nonspecific but most commonly associated with chronic small vessel ischemic disease. Electronically Signed: Bob Angulo MD at 10:02 EST , Service support , CC: Vin Baca DO; Sander Means MD Warp Tying Machine Knotter: Signed BASIC METABOLIC Collected: 07/15/2018 Status: F Source: DIAMOND PROFILE (BMP) 7:00 AM [facility] REPOSITORY TYPE CODE TESTS RESULT OUT OF RANGE REFERENCE UNITS LAB L501.0100 74-106 mg/dL Normal GLU 80 Result Comment: Please note revised GLUCOSE reference range effective 2017. LAB L501.1000 7-18 mg/dL Normal BUN 10 LAB L501.1100 0.55-1.02 mg/dL Normal CREAT,SERUM 0.71 Result Comment: The validity of the calculated GFR AND GFRAA in patients over 70 years has not been determined. Clinical correlation is essential. LAB L501.1110 >60 mL/min Normal EST GFR 87 Result Comment: Non- GFR Calc LAB L501.1115 >60 mL/min Normal EST GFR - AA 105 Result Comment: GFR Calc LAB L501.1255 ml/min Normal Estimated CRCL 55.82 LAB L501.1300 10-20 RATIO Normal BUN/CRE 14.0 LAB L501.2200 8.5-10 mg/dL Low .1 CA 8.0 LAB L501.5300 136-14 mmol/L High 5 NA 146 LAB L501.5600 3.5-5. mmol/L Low 1 K 3.4 LAB L501.5900 98-107 mmol/L High CL 113 LAB L501.6100 21.0-3 mmol/L Normal 2.0 CO2 24.0 LAB L501.6200 5-15 Normal GAP 9 Performed By: #### L500.2500 #### [facility] [address] [place], [address] CONSULTATION Observed: 07/14/2018 Status: F Source: DIAMOND 12:17 PM [facility] REPOSITORY [facility] Medical Records Department [address] [place] [address] Consultation 07/14/18 1013 MR#: [id number] Acct: [id number] Name: FRANCISCO HERNANDEZ Jayjay Rep #: [id number] : 1950 68 From: Sander Means MD PCP: Vin Baca DO Status: ADM IN Y Location: [facility] [id number] Reason for Consult Date of Consultation: 07/14/18 History of Present Illness: The patient is a 68 year old F admitted after 3 siezures, previously seen by me for headaches but last seen several years ago, now follows with Dr duvall with neurocare 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 she has residual left sided weakness and visual field deficit.1st sz in 2017, no recurrence until now. describes 3 episodes yesterday of bilateral upper extremity shaking, sitting at the time, unclear if legs shaking, gaze and head turned to the left as a first component of the event. each of the 3 spells were similar, lasting 5-8 minutes. no tongue biting, now improved but not baseline. reports taking excessive excedrin migraine and aleve recently for migraine and rizatriptan. was taking depakote since her first seizure in 2017 and has been compliant. per admit note:The patient is a 68 year old F with past medical history of COPD, PRESS syndrome, seizure disorder, last had a seizure in 2017, history of chronic migraines, COPD, on 2 L of oxygen at night, RENNY on CPAP who was going to see her risk professional on her 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 According to the , patient has been complaining of abdominal discomfort and has been constipated. Patient told him that she had vomited twice this morning. No other sick contacts or runny nose or chest pain or shortness of breath. States that patient has been on multiple wiix-goz-mivffuc medications and is concerned that she has been taking too many pain medications. At time of being examined, patient was lethargic, was given Ativan and Keppra a little while ago. Also the ED show temperature of 98.3F, heart rate 93, blood pressure 190/99, respiratory rate was 36, SPO2 of 96% on room air. Her admitting blood work was remarkable for WBC count of 13.1, hemoglobin 14.2, platelet count 248. BMP shows sodium 142, does not 3.7, chloride 110, bicarbonate 20, BUN 19, creatinine 1.06, troponin was 0.015, UA was unremarkable. Chest x-ray shows no acute cardiopulmonary infiltrate, CT of the head shows chronic inflammatory changes. Past Medical History Past Medical History (Chronic Problems): Chronic Problems (Last Reviewed 07/14/18 @ 10:23 by Sander Means MD) Tobacco abuse (Chronic) RENNY (obstructive sleep apnea) (Chronic) Mild diastolic dysfunction (Chronic) Depression (Chronic) Restless leg (Chronic) HTN (hypertension) (Chronic) Presbycusis of both ears (Chronic) Adrenal insufficiency (Chronic) COPD (chronic obstructive pulmonary disease) (Chronic) Hypothyroidism (Chronic) Pulmonary fibrosis (Chronic) Medical History: Medical History (Last Reviewed 07/14/18 @ 10:23 by Sander Means MD) Encephalopathy (Acute) G93.40 Leukocytosis (Acute) D72.829 Hypotension (Acute) I95.9 Decreased level of consciousness (Acute) R40.4 Respiratory failure with hypercapnia (Acute) J96.92 MRSA pneumonia (Acute) J15.212 Acute delirium (Acute) R41.0 Headache (Acute) R51 RENNY (obstructive sleep apnea) (Chronic) G47.33 Mild diastolic dysfunction (Chronic) I51.9 Depression (Chronic) F32.9 Restless leg (Chronic) HTN (hypertension) (Chronic) I10 Presbycusis of both ears (Chronic) H91.13 Adrenal insufficiency (Chronic) E27.40 COPD (chronic obstructive pulmonary disease) (Chronic) J44.9 Hypothyroidism (Chronic) E03.9 Pulmonary fibrosis (Chronic) J84.10 COPD with acute exacerbation J44.1 Gallstones K80.20 Septic shock A41.9, R65.21 UTI (urinary tract infection) N39.0 Anxiety F41.9 Bronchitis J40 Carpal tunnel syndrome G56.00 Cataract H26.9 Chronic back pain M54.9, G89.29 Migraine G43.909 Osteopenia M85.80 Solitary pulmonary nodule R91.1 Stage 2 moderate COPD by GOLD classification J44.9 Tobacco abuse Z72.0 Acute respiratory failure J96.00 H/O: hysterectomy Z98.890, Z90.710 Hypersomnia G47.10 Allergies Sulfa (Sulfonamide Antibiotics) Adverse Reaction (Intermediate, Verified 07/13/18 14:52) Other - Messes with blood counts prochlorperazine edisylate [From Compazine] Adverse Reaction (Mild, Verified 07/13/18 14:52) Other - Restless legs prochlorperazine maleate [From Compazine] Adverse Reaction (Mild, Verified 07/13/18 14:52) Other - Restless legs Home Medications: Ambulatory Orders Medication Instructions Recorded Pantoprazole Sodium [Protonix] 40 mg PO DAILY 06 Surgical History: Surgical History (Last Reviewed 07/14/18 @ 10:24 by Sander Means MD) Cochlear implant in place Z96.21 Dr Andrade 2014 H/O adenoidectomy Z98.890, Z90.89 History of cataract surgery Z98.49 History of cholecystectomy Z98.890, Z90.49 History of lung biopsy Z98.890 Hx of appendectomy Z98.890, Z90.49 Hx of left knee surgery Z98.890 joint lipoma removal vocal nodules removed Surgical History: appendectomy, cholecystectomy, hysterectomy, total hip arthroplasty - Right, - - thyroidectomy and BL intraocular lens implants,cochear implant Psychiatric History: Anxiety, Depression, - - Suspected narcotic dependence. CUSTOM PROTECTION OFFICER History: No pertinent CUSTOM PROTECTION OFFICER history Smoking Status: Current every day smoker Tobacco Use: Cigarettes Alcohol: Occasional - cocktail drink Drugs: None - *Family History Maternal Family History: Family History (Last Reviewed 07/14/18 @ 10:24 by Sander Means MD) Mother Hypertension CVA (cerebral vascular accident) Father CVA (cerebral vascular accident) Hypertension Sister Colon cancer Grandfather Hypertension Heart disease History Items: Heart Disease, Stroke Paternal Family History: Family History (Last Reviewed 07/14/18 @ 10:24 by Sander Means MD) Mother Hypertension CVA (cerebral vascular accident) Father CVA (cerebral vascular accident) Hypertension Sister Colon cancer Grandfather Hypertension Heart disease History Items: Heart Disease, Stroke Sibling Family History: Family History (Last Reviewed 07/14/18 @ 10:24 by Sander Means MD) Mother Hypertension CVA (cerebral vascular accident) Father CVA (cerebral vascular accident) Hypertension Sister Colon cancer Grandfather Hypertension Heart disease History Items: - - sister with colon cancer Review of Systems Constitutional: Denies: Chills, Fever, Weight Change HEENT: Denies: Head Aches, Sinus Congestion, Sinus Drainage Cardiovascular: Denies: Chest Pain, Palpitations Respiratory: Denies: Cough, Shortness of breath at rest, Sputum production Gastrointestinal: Denies: Abdominal Pain, Nausea, Vomiting Genitourinary: Denies: Dysuria Musculoskeletal: Denies: Joint Pain, Joint Tenderness Skin: Denies: Rash, Wounds Neurological: Denies: Numbness, Tingling, Focal weakness Psychiatric: Denies: Anxiety, Depression, Homicidal Ideations, Suicidal Ideations Hematologic/ Lymphatic: Denies: Easy Bruising, Easy Bleeding Objective: On examination she is mildly somnolent but arouses to voice There is a left field cut Cranial nerves are otherwise intact There is a left tongue border and ecchymosis, mild Mild left-sided weakness but no drift Sensation intact - Physical Exam Vital Signs Temp Pulse Resp BP Pulse Ox 36.8 C 71 22 H 147/45 H 95 07/14/18 09:59 07/14/18 09:59 07/14/18 09:59 07/14/18 09:59 07/14/18 09:59 Oxygen Flow Rate (L/min) 2 Oxygen Delivery Method Room Air Weight: 67.6 kg Body Mass Index (BMI) 22.9 Finger Stick Blood Glucose 108 Intake and Output for Last 24 Hours Intake Total 735 / 735 490 / 490 Output Total 450 / 450 500 / 500 Balance 285 / 285 -10 / -10 Laboratory Tests Past 24 Hrs WBC 13.1 H RBC 4.50 Hgb 14.2 WBC 11.7 H RBC 4.32 Hgb 13.4 Hct 42.5 MCV 98.4 MCH 31.0 MCHC 31.5 L RDW 15.2 H RDW Differential 55.4 H WBC RBC Hgb Hct MCV MCH MCHC RDW RDW Differential Plt Count POC Glucose POC Glucose 86 Current Home Med List Medication Instructions Recorded Confirmed Type Pantoprazole Sodium [Protonix] 40 mg PO DAILY 08/23/16 07/13/18 History albuterol sulfate HFA 90 2 puff INHALATION Q4H PRN g 06/16/17 07/13/18 History Current Medications Acetaminophen 650 mg 07/14/18 09:02 ct reviewed, old right jillian distribution infarct Assessment/Plan All Active Problems (Last Reviewed 07/14/18 @ 10:23 by Sander Means MD) Encephalopathy (Acute) Leukocytosis (Acute) Hypotension (Acute) Decreased level of consciousness (Acute) Respiratory failure with hypercapnia (Acute) MRSA pneumonia (Acute) Acute delirium (Acute) Headache (Acute) Gram-negative pneumonia (Resolved) Septic shock (Resolved) Tobacco user (Resolved) Seizure, s/p right jillian infarct, history of headaches and medication overuse headache, unclear history of pres, has cochlear implant will adjust depazael keppra for now mri if able (will contact ent office) await eeg 07/14/18 1217 <Electronically signed by Sander Means MD> Date Sander Means MD Cosigner Signature (if applicable): Date CC: Shayy Patel MD; Vin Baca DO; Sander Means MD Signed VALPROIC ACID Collected: 07/14/2018 Status: F Source: DIAMOND (DEPAKENE) LEVEL 9:35 AM [facility] REPOSITORY TYPE CODE TESTS RESULT OUT OF REFERENCE UNITS RANGE LAB L501.8100 50-100 ug/mL Low VALPROIC ACID 24 Performed By: #### L501.8100 #### [facility] [address] [place], [address] BASIC METABOLIC Collected: 07/14/2018 Status: F Source: DIAMOND PROFILE (BMP) 4:35 AM [facility] REPOSITORY TYPE CODE TESTS RESULT OUT OF RANGE REFERENCE UNITS LAB L501.0100 74-106 mg/dL Normal GLU 86 Result Comment: Please note revised GLUCOSE reference range effective 2017. LAB L501.1000 7-18 mg/dL Normal BUN 14 LAB L501.1100 0.55-1.02 mg/dL Normal CREAT,SERUM 0.70 Result Comment: The validity of the calculated GFR AND GFRAA in patients over 70 years has not been determined. Clinical correlation is essential. LAB L501.1110 >60 mL/min Normal EST GFR 90 Result Comment: Non- GFR Calc LAB L501.1115 >60 mL/min Normal EST GFR - AA 108 Result Comment: GFR Calc LAB L501.1255 ml/min Normal Estimated CRCL 55.82 LAB L501.1300 10-20 RATIO High BUN/CRE 20.1 LAB L501.2200 8.5-10 mg/dL Low .1 CA 8.0 LAB L501.5300 136-14 mmol/L High 5 NA 146 LAB L501.5600 3.5-5. mmol/L Normal 1 K 3.8 LAB L501.5900 98-107 mmol/L High CL 114 LAB L501.6100 21.0-3 mmol/L Normal 2.0 CO2 25.0 LAB L501.6200 5-15 Normal GAP 7 Performed By: #### L500.2500 #### [facility] [facility] [address] [place], [place], [id number] CBC W/DIFF, AUTOMATED Collected: 07/14/2018 Status: F Source: [place] 4:35 AM [facility] REPOSITORY TYPE CODE TESTS RESULT OUT OF RANGE REFERENCE UNITS LAB L100.1000 4.4-11.0 K/mm3 High WBC 11.7 LAB L100.1200 4.2-5.4 M/mm3 Normal RBC 4.32 LAB L100.1300 12.0-15.0 g/dl Normal HGB 13.4 LAB L100.1400 37-47 % Normal HCT 42.5 LAB L100.1500 81-99 fL Normal MCV 98.4 LAB L100.1600 27.0-32.0 pg Normal MCH 31.0 LAB L100.1700 32-36 g/gl Low MCHC 31.5 LAB L100.1810 11.6-14.6 % High RDW CV 15.2 LAB L100.1820 35.1-43.9 fl High RDW SD 55.4 LAB L100.1900 150-450 K/mm3 Normal PLT 215 LAB L100.2000 6.2-12.0 fl Normal MPV 9.6 LAB L100.2100 47-70 % High NEUT% 81.3 LAB L100.2200 19-41 % Low LY% 14.5 LAB L100.2300 0-10 % Normal MONO% 2.9 LAB L100.2400 0-5 % Normal EO% 0.8 LAB L100.2500 0-1 % Normal BASO% 0.2 LAB L100.2550 0.0-0.9 % Normal IM GRAN % 0.300 Result Comment: IG% - Immature Granulocytes (promyelocytes, myelocytes and metamyelocytes) > 1% indicates that a LEFT SHIFT is Present. LAB L100.2620 2.0-7.7 X10 3/uL High Absolute Neut 9.5 LAB L100.2720 0.83-4.51 X10 3/ul Normal Absolute Lymph 1.69 Performed By: #### L100.0100 #### [facility] [address] [place], [address] BEDSIDE GLUCOSE Collected: 07/13/2018 Status: F Source: [place] 11:34 PM [facility] REPOSITORY TYPE CODE TESTS RESULT OUT OF RANGE REFERENCE UNITS LAB L501.080 70-110 mg/dL Normal BEDSIDE GLU 86 Result Comment: MANAGEMENT OF PATIENT CARE PER NURSING PROTOCOL Performed By: #### L501.080 #### [facility] Point of Care [address] [place] [address] HISTORY AND PHYSICAL Observed: 07/13/2018 Status: F Source: [place] EXAM 4:47 PM [facility] REPOSITORY [facility] Medical Records Department [address] [place] [address] History and Physical 07/13/18 1622 MR#: [id number] Acct: [id number] Name: FRANCISCO HERNANDEZ Rep #: [id number] : 1950 68 From: Shayy Patel MD PCP: Vin Baca DO Status: ADM IN Location: ICU ICU04-1 Problem List (1) Tobacco abuse Status: Chronic (2) Depression Status: Chronic Qualifiers: Depression Type: major depressive disorder Major depression recurrence: recurrent Active/Remission status: currently active Major depression episode severity: moderate Qualified Code(s): F33.1 - Major depressive disorder, recurrent, moderate (3) HTN (hypertension) Status: Chronic Qualifiers: Hypertension type: essential hypertension (4) COPD (chronic obstructive pulmonary disease) Status: Chronic Qualifiers: COPD type: unspecified COPD Qualified Code(s): J44.9 - Chronic obstructive pulmonary disease, unspecified; J44.9 - Chronic obstructive pulmonary disease, unspecified; J44.9 - Chronic obstructive pulmonary disease, unspecified; J44.9 - Chronic obstructive pulmonary disease, unspecified (5) Hypothyroidism Status: Chronic Qualifiers: Hypothyroidism type: unspecified Qualified Code(s): E03.9 - Hypothyroidism, unspecified (6) Pulmonary fibrosis Status: Chronic History of Present Illness Date of Admission: 07/13/18 Chief Complaint: Seizures - 1 day The patient is a 68 year old F with past medical history of COPD, PRESS syndrome, seizure disorder, last had a seizure in 2017, history of chronic migraines, COPD, on 2 L of oxygen at night, RENNY on CPAP who was going to see her risk professional on her 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 According to the , patient has been complaining of abdominal discomfort and has been constipated. Patient told him that she had vomited twice this morning. No other sick contacts or runny nose or chest pain or shortness of breath. States that patient has been on multiple faks-bhs-wnmnewy medications and is concerned that she has been taking too many pain medications. At time of being examined, patient was lethargic, was given Ativan and Keppra a little while ago. Also the ED show temperature of 98.3F, heart rate 93, blood pressure 190/99, respiratory rate was 36, SPO2 of 96% on room air. Her admitting blood work was remarkable for WBC count of 13.1, hemoglobin 14.2, platelet count 248. BMP shows sodium 142, does not 3.7, chloride 110, bicarbonate 20, BUN 19, creatinine 1.06, troponin was 0.015, UA was unremarkable. Chest x-ray shows no acute cardiopulmonary infiltrate, CT of the head shows chronic inflammatory changes. Past Medical History Past Medical History (Chronic Problems): Chronic Problems (Last Reviewed 04/13/18 @ 06:39 by Afua Friedman) Tobacco abuse (Chronic) RENNY (obstructive sleep apnea) (Chronic) Mild diastolic dysfunction (Chronic) Depression (Chronic) Restless leg (Chronic) HTN (hypertension) (Chronic) Presbycusis of both ears (Chronic) Adrenal insufficiency (Chronic) COPD (chronic obstructive pulmonary disease) (Chronic) Hypothyroidism (Chronic) Pulmonary fibrosis (Chronic) Medical History: Medical History (Last Reviewed 04/13/18 @ 06:39 by Afua Friedman) Encephalopathy (Acute) G93.40 Leukocytosis (Acute) D72.829 Hypotension (Acute) I95.9 Decreased level of consciousness (Acute) R40.4 Respiratory failure with hypercapnia (Acute) J96.92 MRSA pneumonia (Acute) J15.212 Acute delirium (Acute) R41.0 Headache (Acute) R51 RENNY (obstructive sleep apnea) (Chronic) G47.33 Mild diastolic dysfunction (Chronic) I51.9 Depression (Chronic) F32.9 Restless leg (Chronic) HTN (hypertension) (Chronic) I10 Presbycusis of both ears (Chronic) H91.13 Adrenal insufficiency (Chronic) E27.40 COPD (chronic obstructive pulmonary disease) (Chronic) J44.9 Hypothyroidism (Chronic) E03.9 Pulmonary fibrosis (Chronic) J84.10 COPD with acute exacerbation J44.1 Gallstones K80.20 Septic shock A41.9, R65.21 UTI (urinary tract infection) N39.0 Anxiety F41.9 Bronchitis J40 Carpal tunnel syndrome G56.00 Cataract H26.9 Chronic back pain M54.9, G89.29 Migraine G43.909 Osteopenia M85.80 Solitary pulmonary nodule R91.1 Stage 2 moderate COPD by GOLD classification J44.9 Tobacco abuse Z72.0 Acute respiratory failure J96.00 H/O: hysterectomy Z98.890, Z90.710 Hypersomnia G47.10 Allergies Sulfa (Sulfonamide Antibiotics) Adverse Reaction (Intermediate, Verified 07/13/18 14:52) Other - Messes with blood counts prochlorperazine edisylate [From Compazine] Adverse Reaction (Mild, Verified 07/13/18 14:52) Other - Restless legs prochlorperazine maleate [From Compazine] Adverse Reaction (Mild, Verified 07/13/18 14:52) Other - Restless legs Home Medications: Ambulatory Orders Medication Instructions Recorded Surgical History: Surgical History (Last Reviewed 04/13/18 @ 06:39 by Afua Friedman) Cochlear implant in place Z96.21 Dr Andrade 2014 H/O adenoidectomy Z98.890, Z90.89 History of cataract surgery Z98.49 History of cholecystectomy Z98.890, Z90.49 History of lung biopsy Z98.890 Hx of appendectomy Z98.890, Z90.49 Hx of left knee surgery Z98.890 joint lipoma removal vocal nodules removed Surgical History: appendectomy, cholecystectomy, hysterectomy, total hip arthroplasty - Right, - - thyroidectomy and BL intraocular lens implants,cochear implant Psychiatric History: Anxiety, Depression, - - Suspected narcotic dependence. CUSTOM PROTECTION OFFICER History: No pertinent CUSTOM PROTECTION OFFICER history Smoking Status: Current every day smoker Tobacco Use: Cigarettes Alcohol: Occasional - cocktail drink Drugs: None - *Family History Maternal Family History: Family History (Last Reviewed 04/13/18 @ 06:39 by Afua Friedman) Mother Hypertension CVA (cerebral vascular accident) Father CVA (cerebral vascular accident) Hypertension Sister Colon cancer Grandfather Hypertension Heart disease History Items: Heart Disease, Stroke Paternal Family History: Family History (Last Reviewed 04/13/18 @ 06:39 by Afua Friedman) Mother Hypertension CVA (cerebral vascular accident) Father CVA (cerebral vascular accident) Hypertension Sister Colon cancer Grandfather Hypertension Heart disease History Items: Heart Disease, Stroke Sibling Family History: Family History (Last Reviewed 04/13/18 @ 06:39 by Afua Friedman) Mother Hypertension CVA (cerebral vascular accident) Father CVA (cerebral vascular accident) Hypertension Sister Colon cancer Grandfather Hypertension Heart disease History Items: - - sister with colon cancer Review of Systems Unable to obtain accurate/complete ROS d/t: Patient was very lethargic at exam; sedated with Ativan, Keppra VTE Information - Inpt Only VTE Present on Admission: No VTE Pharm Prophylaxis ordered?: Yes - Physical Exam General: Alert, Oriented x3, Cooperative, No apparent distress HEENT: Atraumatic, PERRLA, EOMI, Normocephalic Oral: Moist Mucosa Neck: Supple, No JVD, Negative Carotid Bruits Lungs: Clear to auscultation, Normal air movement Cardiovascular: Regular rate, Regular Rhythm, Normal S1, Normal S2, No murmurs Abdomen: Bowel Sounds Present, Soft, Non Tender, Non-Distended, No Hepato-splenomegaly Extremities: No edema Skin: No rashes, No breakdown Musculoskeletal: No Tenderness to Palpation of Joints or Extremities Lymphatic: No Cervical, Supraclavicular, or Inguinal Adenopathy Neurological: Cranial nerves II-XII grossly intact, Neuro grossly intact Psych/Mental Status: Normal Affect, Appropriate Vital Signs Temp Pulse Resp BP Pulse Ox 98.3 F 96 27 H 157/89 H 96 07/13/18 14:17 07/13/18 16:04 07/13/18 16:04 07/13/18 16:04 07/13/18 16:04 Oxygen Flow Rate (L/min) 2 Oxygen Delivery Method Nasal Cannula Weight: 68.5 kg Body Mass Index (BMI) 22.9 Finger Stick Blood Glucose 108 Laboratory Tests Past 24 Hrs WBC 13.1 H RBC 4.50 Hgb 14.2 Hct 45.1 MCV 100.2 H MCH 31.6 WBC RBC Hgb Hct MCV MCH MCHC RDW RDW Differential Plt Count MPV Immature Gran % (Auto) Assessment/Plan All Active Problems (Last Reviewed 04/13/18 @ 06:39 by Afua Friedman) Encephalopathy (Acute) Leukocytosis (Acute) Hypotension (Acute) Decreased level of consciousness (Acute) Respiratory failure with hypercapnia (Acute) MRSA pneumonia (Acute) Acute delirium (Acute) Headache (Acute) Gram-negative pneumonia (Resolved) Septic shock (Resolved) Tobacco user (Resolved) 68 year old F with past medical history of COPD, PRESS syndrome, seizure disorder, last had a seizure in 2017, history of chronic migraines, nocturia hypoxia on 2 L of oxygen at night, RENNY on CPAP who was going to see her risk professional on her follow- up appointment when she had 3 episodes of seizures. 1. Breakthrough seizures, history of seizures, on Depakote, stable vitals, given Ativan and Keppra, CT scan of head is negative. Plan: Admit to ICU, seizure protocol, given IV keppra 1000mg x 1, Keppra 500mg IV BID, NPO on account of lethargy 2. Hypothyroidism, levothyroxine and on hold on account of n.p.o. status 3. COPD, continue with breathing treatments as needed 4. Nocturnal hypoxia, on 2 L of oxygen at night 5. RENNY on CPap, 10mmHg 6. Dehydration, elevation in creatinine, will start on gentle IV fluids, lab in a.m. 7. PRESS syndrome, h/o CVA, ff with neurologist in [place] 8. DVT PPx- Heparin SC 9. GI PPx- Famotidine 10. Code status: Full code; is the HCPOA. Code Visit Inpatient E AND M: [id number] Init Hosp L3 07/13/18 0201 <Electronically signed by Shayy Patel MD> Date Shayy Patel MD Cosigner Signature: Date (if applicable) CC: Shayy Patel MD; Vin Baca DO Signed EMERGENCY DEPARTMENT Observed: 07/13/2018 Status: F Source: [place] SUMMARY 4:29 PM [facility] REPOSITORY [facility] Medical Records Department [address] [place] [address] Emergency Department Summary 07/13/18 1430 MR#: [id number] Acct: [id number] Name: FRANCISCO HERNANDEZ Rep #: [id number] : 1950 68 From: Edmund Cassa MD PCP: Vin Baca DO Status: ADM IN - ER Visit Summary Date of Service: 07/13/18 Chief Complaint: [] Seizure History of Present Illness: The patient is a 68 F [] COPD 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 Per the she was in her usual state of health today she was going to see her risk professional for routine follow-up visit for COPD she complained him that she had a headache which is not unusual for her and she wanted to go see the emergency department if her headache was not improved by the time the visit with pulmonology was over, the reports that then she began having seizures where she would suddenly look to the left and had generalized tonic-clonic activity of all 4 extremities and he brought her to the emergency department, she was not seen by pulmonology, she had 3 seizures the last for a few minutes she is not known to have chronic seizures since she recovered from the syndrome above in 2017, she was seen at that time at [facility] neurology Physical Examination: [] 190/90 Actively seizing she has a fixed gaze to the left she has tonic-clonic jerking activity of all 4 extremities the seizure lasted for a few minutes, she has a port in her right chest which were accessing her airways intact, her lungs sound clear the heart tones are normal the abdomen soft nontender and her extremities show no obvious signs of trauma she her eyes are open she appears to be scanning the room but she does not respond to verbal or painful stimuli and again her airway is intact as are her hemodynamics Test Results: [] Emergency Department Course and Treatment: [] The patient's EKG shows a sinus rhythm her screening labs are unremarkable, the head CT per radiology shows old changes nothing acute reevaluation she remained stable here in the department there is been no further seizure she has had 2 of Ativan 750 g of Keppra airways intact vital signs have been within normal range discussed with the the need for admission he agrees to admission at [facility] spoke with the hospitalist will arrange for admission to the ICU for further management all the above her blood pressure now is 150/80 without specific therapy Treatment Plan: [] Disposition: [] Admits stable Impression: [] Multiple seizures, history of prior stroke, COPD, PRESS syndrome, migraine headaches This note was generated with [employer] software. It may contain incorrect words, spelling, and punctuation that were not noted in review of the chart prior to signing ED Disposition - Plan for ED Patient: Chief Complaint: Neuro S/Sx Referrals: Vin Baca, [Primary Care Provider] - What to do if you have Problems For any increased pain, shortness of breath, bleeding, nausea or vomiting, chest pain, or any unexpected problems, contact your Primary Care Provider. Call [facility] ([phone]) or report to the closest Emergency Room. Call 911 if necessary. 07/13/18 0714 <Electronically signed by Edmund Casas MD> Date Edmund Casas MD Cosigner Signature (If Indicated): Date CC: Vin Baca DO BLOOD GASES BY CPS Collected: 07/13/2018 Status: F Source: [place] 4:12 PM [facility] REPOSITORY TYPE CODE TESTS RESULT OUT OF RANGE REFERENCE UNITS LAB L9000.9990 Normal BLD GAS TYPE ART LAB L9001.1000 Normal SITE R Radial LAB L9001.1050 O2 Normal Delivery Dev Nasal Can LAB L9001.1055 /min Normal LPM 2.0 LAB L9001.1104 Normal Results To ED LAB L9001.1105 Normal Time Given 1610 LAB L9001.1110 7.35-7.45 Low pH - I-STAT 7.31 LAB L9001.1210 35-45 mmHg High pCO2 - ISTAT 45.3 LAB L9001.1310 75-100 mmHG Low PO2 I-STAT 66 LAB L9001.2300 22-26 mmol/L Normal HCO3 ISTAT 22.8 LAB L9001.2400 -2 to +2 mmol/L Low BE ISTAT -3 LAB L9001.2415 mmol/L Normal TOTAL CO2 24 ISTAT LAB L9001.2425 95-99 % Low SO2 ISTAT 91 Performed By: #### L9000.0800 #### [facility] Point of Care [address] [place] [address] URINALYSIS, COMPLETE Collected: 07/13/2018 Status: F Source: [place] 3:20 PM [facility] REPOSITORY Order Comment: How was Urine Obtained? PROCESS TRAINER TO SPECIFY TYPE CODE TESTS RESULT OUT OF RANGE REFERENCE UNITS LAB L400.3000 Yellow COLOR Normal Yellow LAB L400.3050 Clear Normal CLARITY Clear LAB L400.3200 Normal mg/dl Normal GLUCOSE, UR Normal LAB L400.3300 Negative mg/dL Normal BILIRUBIN URINE Negative LAB L400.3400 Negative mg/dl Normal KETONE UR Negative LAB L400.3465 1.002-1.030 Normal SP.GR. DIPSTX 1.020 LAB L400.3550 5.0 - 8.0 pH UR Normal 6.0 LAB L400.3600 Negative mg/dl High PROT DIPSTX 100 LAB L400.3700 Normal mg/dl Normal UROBILI Normal LAB L400.3750 Negative Normal NITRITE UR Negative LAB L400.3780 Negative /ul High 25 OCCULT BLOOD-UR LAB L400.3800 Negative /ul High LEUK 25 ESTERASE LAB L400.4050 0-5 /hpf WBC Normal 0-5 SEEN LAB L400.4100 0-5 /hpf Normal RBC-UA 0-5 SEEN LAB L400.4150 5-10 /hpf SQUAM Normal EPI 0-5 SEEN LAB L400.4300 None Seen /hpf 0 Normal BACTERIA SEEN LAB L400.4350 <or=2+ /hpf 0 Normal MUCUS, URINE SEEN Performed By: #### L400.0001 #### [facility] [address] [place], [address] Observed: 07/13/2018 Status: F Source: [place] CULTURE, URINE 3:20 PM [facility] REPOSITORY Urine Culture Culture exhibits no growth. Performed By: #### M100.0650 #### [facility] [address] [place], [address] CBC W/DIFF, AUTOMATED Collected: 07/13/2018 Status: F Source: [place] 2:30 PM [facility] REPOSITORY TYPE CODE TESTS RESULT OUT OF RANGE REFERENCE UNITS LAB L100.1000 4.4-11.0 K/mm3 High WBC 13.1 LAB L100.1200 4.2-5.4 M/mm3 Normal RBC 4.50 LAB L100.1300 12.0-15.0 g/dl Normal HGB 14.2 LAB L100.1400 37-47 % Normal HCT 45.1 LAB L100.1500 81-99 fL High MCV 100.2 LAB L100.1600 27.0-32.0 pg Normal MCH 31.6 LAB L100.1700 32-36 g/gl Low MCHC 31.5 LAB L100.1810 11.6-14.6 % High RDW CV 15.3 LAB L100.1820 35.1-43.9 fl High RDW SD 56.1 LAB L100.1900 150-450 K/mm3 Normal PLT 248 LAB L100.2000 6.2-12.0 fl Normal MPV 9.7 LAB L100.2100 47-70 % High NEUT% 77.9 LAB L100.2200 19-41 % Low LY% 10.8 LAB L100.2300 0-10 % Normal MONO% 9.4 LAB L100.2400 0-5 % Normal EO% 0.7 LAB L100.2500 0-1 % Normal BASO% 0.3 LAB L100.2550 0.0-0.9 % Normal IM GRAN % 0.900 Result Comment: IG% - Immature Granulocytes (promyelocytes, myelocytes and metamyelocytes) > 1% indicates that a LEFT SHIFT is Present. LAB L100.2620 2.0-7.7 X10 3/uL High Absolute Neut 10.2 LAB L100.2720 0.83-4.51 X10 3/ul Normal Absolute Lymph 1.41 Performed By: #### L100.0100 #### [facility] [address] [place], [place], [address] BASIC METABOLIC Collected: 07/13/2018 Status: F Source: [place] PROFILE (BMP) 2:30 PM [facility] REPOSITORY TYPE CODE TESTS RESULT OUT OF RANGE REFERENCE UNITS LAB L501.0100 74-106 mg/dL High GLU 130 Result Comment: Fasting Glucose result greater than or equal to 126 mg/dL suggests DIABETES MELLITUS per A.D.A. criteria. Please note revised GLUCOSE reference range effective 2017. LAB L501.1000 7-18 mg/dL High BUN 19 LAB L501.1100 0.55-1.02 mg/dL High CREAT,SERUM 1.06 Result Comment: The validity of the calculated GFR AND GFRAA in patients over 70 years has not been determined. Clinical correlation is essential. LAB L501.1110 >60 mL/min Low EST GFR 55 Result Comment: Non- GFR Calc LAB L501.1115 >60 mL/min Normal EST GFR - AA 67 Result Comment: GFR Calc LAB L501.1255 ml/min Normal Estimated CRCL 52.66 LAB L501.1300 10-20 RATIO Normal BUN/CRE 17.9 LAB L501.2200 8.5-10 mg/dL Low .1 CA 8.4 LAB L501.5300 136-14 mmol/L Normal 5 NA 142 LAB L501.5600 3.5-5. mmol/L Normal 1 K 3.7 LAB L501.5900 98-107 mmol/L High CL 110 LAB L501.6100 21.0-3 mmol/L Normal 2.0 CO2 22.0 LAB L501.6200 5-15 Normal GAP 10 Performed By: #### L500.2500, L501.4010 #### [facility] [address] [place], [address] TROPONIN-I Collected: 07/13/2018 Status: F Source: [place] 2:30 PM [facility] REPOSITORY TYPE CODE TESTS RESULT OUT OF RANGE REFERENCE UNITS LAB L501.4010 <0.045 ng/mL Normal < 0.015 TROPONIN-I Result Comment: TROPONIN-I EXPECTED VALUES <0.045 Negative 0.045 - 0.590 Consistent with Cardiac Damage > OR = 0.600 Critical Value Not every elevated troponin is indicative of SC. These values should be used with clinical judgement in examining the patient's clinical picture for diagnosis. To establish a diagnosis of SC versus myocardial injury, there must be a demonstrated rise and/or fall in the troponin values, in addition to ischemic symptoms, EKG changes, new regional wall motion abnormality, and/or angiographical evidence. PLEASE NOTE: REFERENCE RANGES EDITED 17 Performed By: #### L500.2500, L501.4010 #### [facility] [address] [place], [address] BRAIN/HEAD WITHOUT Observed: 07/13/2018 Status: F Source: [place] CONTRAST 2:30 PM [facility] REPOSITORY [facility] Imaging Services [address] [place] [address] Brain/Head without Contrast MR#: [id number] Acct: [id number] Name: FRANCISCO HERNANDEZ Jayjay Rep #: [id number] : 1950 F 68 From: Kavon Hale MD PCP: Vin Baca DO Status: REG ER Study: Brain/Head without Contrast Date of Exam: 07/13/18 Exam# [id number] Ordering Dr: Edmund Casas MD ADDENDUM by Justino Hale on 07/13/18 at 1456 STUDY: CT BRAIN WITHOUT CONTRAST REASON FOR EXAM: Female, 68 years old. Stroke, seizure. RADIATION DOSAGE (If Supplied By Facility): CTDIvol = ( 44.99 ) mGy, DLP = ( 815.79 ) mGycm TECHNIQUE: Transaxial CT imaging of the brain was performed without administration of intravenous contrast material. Individualized dose optimization techniques were used for this CT. COMPARISON: Noncontrast CT brain May 16, 2018. FINDINGS: There is an indwelling left-sided cochlear implant. This produces mild artifact at the left ucxohxhe-wdeqqqdw-wjhvcajzd region. Prior partial left mastoidectomy also again noted There is stable mild central cerebral atrophy with mild ventricular dilatation. There are areas of decreased attenuation within the white matter tracts of the supratentorial brain, consistent with microvascular disease changes. 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 Normal basal ganglia and thalami. Normal brainstem. Normal cerebellum. There is no intracranial hemorrhage. There are no findings of an acute ischemic infarction. Normal visualized paranasal sinuses. 07/13/18 1456 Date cc: MD Morelia Casas; Vin Baca DO * Signed ADDENDUM by Justino Hale on 07/13/[address]/Brain/Head without Contrast IMPRESSION: 1. Chronic involutional and ischemic changes of the brain, as described. No acute intracranial pathology. 2. Changes of prior partial left mastoidectomy and cochlear implant again noted. N.B. : The above information has been verbally conveyed by Justino Hale MD to Morelia Casas AA, on 07/13/2018 14:54:51 (ET). Electronically Signed: Justino Hale MD at 14:56 EST , Service support , 07/13/18 1503 Date cc: MD Morelia Casas; Vni Baca DO * Signed STUDY: CT BRAIN WITHOUT CONTRAST REASON FOR EXAM: Female, 68 years old. Stroke, seizure. RADIATION DOSAGE (If Supplied By Facility): CTDIvol = ( 44.99 ) mGy, DLP = ( 815.79 ) mGycm TECHNIQUE: Transaxial CT imaging of the brain was performed without administration of intravenous contrast material. Individualized dose optimization techniques were used for this CT. COMPARISON: Noncontrast CT brain May 16, 2018. FINDINGS: There is an indwelling left-sided cochlear implant. This produces mild artifact at the left ngdttqab-badxdhfl-gmhdxlcdp region. Prior partial left mastoidectomy also again noted There is stable mild central cerebral atrophy with mild ventricular dilatation. There are areas of decreased attenuation within the white matter tracts of the supratentorial brain, consistent with microvascular disease changes. 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 Normal basal ganglia and thalami. Normal brainstem. Normal cerebellum. There is no intracranial hemorrhage. There are no findings of an acute ischemic infarction. Normal visualized paranasal sinuses. CT/Brain/Head without Contrast IMPRESSION: 1. Chronic involutional and ischemic changes of the brain, as described. No acute intracranial pathology. 2. Changes of prior partial left mastoidectomy and cochlear implant again noted. N.B. : The above information has been verbally conveyed by Justino Hale MD to Morelia Casas AA, on 07/13/2018 14:54:51 (ET). 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 Stroke symptoms, seizure. TECHNIQUE: Single AP portable upright view of the chest. COMPARISON: AP and lateral upright chest x-ray May 16, 2018. FINDINGS: The right chest wall MediPort is again noted, its tip in the superior vena cava. The lungs are poorly expanded and there is bibasilar crowding. No lobar consolidation.. There is no demonstrated pleural abnormality. Normal size heart. Normal mediastinum and brandon. Normal visualized pulmonary arteries. Normal visualized aortic arch and descending thoracic aorta. Normal visualized thoracic spine. Normal visualized ribs, clavicles, and shoulders. There is no demonstrated abnormality of the visualized soft tissue structures of the upper abdomen. RAD/Chest 1 View (Portable) IMPRESSION: Poor inspiratory effort with bibasilar crowding. No acute consolidating infiltrate or pulmonary edema. Electronically Signed: Justino Hale MD at 15:05 EST , Service support , CC: MD Morelia Casas; Vin Baca DO Warp Tying Machine Knotter: Signed PULMONARY FUNCTION Observed: 07/07/2018 Status: F Source: [place] TEST 10:57 AM [facility] REPOSITORY [facility] Pulmonary Services/Neurology [address] [place] [address] MR#: [id number] Acct: [id number] Name: FRANCISCO HERNANDEZ Rep #: [id number] : 1950 68 From: Og Prather DO Referring Dr: Gerry Diallo MD Status: REG CLI Ordering Dr: Date: Location: [facility] Sex: F C INTRODUCTION: The patient is a 68-year-old female that presents for pulmonary function testing secondary to a diagnosis of respiratory failure. Respiratory therapy reports good patient effort. Bronchodilators were used during testing. INTERPRETATION: Forced expiration spirometry demonstrates the presence of a severe large airways obstructive ventilatory defect. There was no significant response to aerosolized bronchodilators, based upon strict ATS criteria. Spirograms are of good quality and plateau normally. Body plethysmography was performed and reveals a decreased TLC to 4.16 L, 74% of predicted, indicative of a mild restrictive ventilatory defect. The remainder of the lung volumes are symmetrically reduced. Diffusing capacity by single breath CO is also reduced at 41% of predicted. When compared to previous pulmonary function studies dated September 2017, there has been an 8% reduction in FEV1. 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 07/07/18 1057 <Electronically signed by Og Prather DO> Date Og Prather DO CC: Gerry Diallo MD; Vin Baca DO Date Dictated: 07/07/18 1053 Date Transcribed: 07/07/18 105 Warp Tying Machine Knotter: DB Signed DISCHARGE INSTRUCTION Observed: 06/24/2018 Status: F Source: [place] 12:36 AM [facility] REPOSITORY [facility] Medical Records Department [address] [place] [address] Discharge Instruction 06/23/18 1829 MR#: [id number] Acct: [id number] Name: FRANCISCO HERNANDEZ Rep #: [id number] : 1950 68 From: Eduard Cline MD PCP: Vin Baca DO Status: [facility] ER ED Disposition - Plan for ED Patient: Disposition: Home or Assisted Living Chief Complaint: Headache Instructions: ED Headache Migraine Referrals: Vin Baca DO [Primary Care Provider] - As Needed Additional Instructions: Plenty of fluids and rest. Return if feeling worse. Follow-up with your doctor as needed. What to do if you have Problems For any increased pain, shortness of breath, bleeding, nausea or vomiting, chest pain, or any unexpected problems, contact your Primary Care Provider. Call [employer] [facility] ([phone]) or report to the closest Emergency Room. Call 911 if necessary. 06/24/18 0036 <Electronically signed by Eduard Cline MD> Date Eduard Cline MD Cosigner Signature (If Indicated): Date CC: Vin Baca DO EMERGENCY DEPARTMENT Observed: 06/24/2018 Status: F Source: [place] SUMMARY 12:36 AM [facility] REPOSITORY [facility] Medical Records Department [address] [place] [address] Emergency Department Summary 06/23/18 1827 MR#: [id number] Acct: [id number] Name: FRANCISCO HERNANDEZ Rep #: [id number] : 1950 68 From: Eduard Cline MD PCP: Vin Baca DO Status: DEP ER - ER Visit Summary Date of Service: 06/23/18 Chief Complaint: Ongoing headache History of Present Illness: The patient is a 68 F history of prior CVA, COPD, pulmonary fibrosis and migraines. Patient states he has had a migraine since yesterday as typical on the right side. Associated nausea no vomiting. No trauma. No sinus congestion. No fever or neck pain. She is on no blood thinners. Worse with light. No trouble moving her arms or legs. No recent falls. Physical Examination: Older female no acute distress seated in a darkened room. Vital signs are stable. She is afebrile. He does not look septic or toxic. H EENT exam pupils round reactive light. Photophobic. No facial droop. Normal speech. Extraocular motions intact. Neck nontender. No lymphadenopathy. No meningismus. Able to touch chin to chest. Lungs clear to auscultation bilaterally. Heart regular rhythm no murmur. Abdomen soft nontender. Patient moving all 4 extremities. Neurovascular intact. Equal symmetrical 5 out of 5 internet webmaster strength. Dorsi plantar flexion intact. 5 out of 5 motor. Fingertip to nose within normal limits. Neurologically she is awake alert with no focal motor or sensory deficits. NIH score is 0. Test Results: None Emergency Department Course and Treatment: Patient treated with IV fluids, Toradol, Benadryl, Phenergan and DHE. Repeat exam her headache is resolving. Neurologic exam remains normal. She prefers to be discharged home. Treatment Plan: Return if feeling worse. Disposition: Discharge Impression: Acute migraine headache with a history of migraines This note was generated with NoWait dictation software. It may contain incorrect words, [...] your Primary Care Provider. Call [facility] ([phone]) or report to the closest Emergency Room. Call 911 if necessary. 06/24/18 0036 <Electronically signed by Eduard Cline MD> Date Eduard Cline MD Cosigner Signature (If Indicated): Date CC: Vin Baca DO COMPREHENSIVE METABOLIC Collected: 06/22/2018 Status: F Source: [place] 3:25 PM [facility] REPOSITORY TYPE CODE TESTS RESULT OUT OF RANGE REFERENCE UNITS LAB L501.0100 74-106 mg/dL Normal GLU 82 Result Comment: Please note revised GLUCOSE reference range effective 2017. LAB L501.1000 7-18 mg/dL Normal BUN 9 LAB L501.1100 0.55-1.02 mg/dL Normal CREAT,SERUM 0.96 Result Comment: The validity of the calculated GFR AND GFRAA in patients over 70 years has not been determined. Clinical correlation is essential. LAB L501.1110 >60 mL/min Normal EST GFR 62 Result Comment: Non- GFR Calc LAB L501.1115 >60 mL/min Normal EST GFR - AA 75 Result Comment: GFR Calc LAB L501.1300 10-20 RATIO Low BUN/CRE 9.4 LAB L501.1500 6.4-8.2 g/dL Normal T PROT 7.0 LAB L501.1800 3.2-5.0 g/dL Normal ALB 3.5 LAB L501.1950 2.2-4.2 g/dL Normal GLOB 3.5 LAB L501.2000 0.9-2.4 RATIO Normal A/G 1.0 LAB L501.2200 8.5-10.1 mg/dL Low CA 8.1 LAB L501.4100 15-37 U/L Low AST 12 LAB L501.4305 45-117 U/L Normal ALK P 97 LAB L501.4405 13-56 U/L Normal ALT 14 LAB L501.4600 0.20-1.00 mg/dL Normal T BILI 0.40 LAB L501.5300 136-145 mmol/L Normal NA 140 LAB L501.5600 3.5-5.1 mmol/L Normal K 4.2 LAB L501.5900 98-107 mmol/L Normal CL 107 LAB L501.6100 21.0-32.0 mmol/L Normal CO2 24.0 LAB L501.6200 5-15 Normal GAP 9 Performed By: #### L500.4050, L501.9520, L506.0400 #### [facility] [address] [place], [place], [id number] THYROID STIM HORMONE Collected: 06/22/2018 Status: F Source: [place] (TSH) 3:25 PM [facility] REPOSITORY TYPE CODE TESTS RESULT OUT OF RANGE REFERENCE UNITS LAB L501.9520 0.358-3.74 uIU/mL Low TSH 0.03 Performed By: #### L500.4050, L501.9520, L506.0400 #### [facility] [address] [place], [place], [address] T4 FREE DIRECT Collected: 06/22/2018 Status: F Source: [place] 3:25 PM [facility] REPOSITORY TYPE CODE TESTS RESULT OUT OF REFERENCE UNITS RANGE LAB L506.0400 0.76-1.46 ng/dL High T4 FREE 1.59 DIRECT Performed By: #### L500.4050, L501.9520, L506.0400 #### [facility] [address] [place], [address] DISCHARGE INSTRUCTION Observed: 06/14/2018 Status: F Source: [place] 11:25 PM [facility] REPOSITORY [facility] Medical Records Department [address] [place] [address] Discharge Instruction 06/14/182129 MR#: [id number] Acct: [id number] Name: FRANCISCO HERNANDEZ Rep #: [id number] : 1950 68 From: Eduard Cline MD PCP: Vin Baca DO Status: DEP ER ED Disposition - Plan for ED Patient: Disposition: Home or Assisted Living Chief Complaint: Headache Instructions: ED Headache Migraine Referrals: Vin Baca DO [Primary Care Provider] - As Needed Additional Instructions: Plenty of fluids and rest. Return if feeling worse. What to do if you have Problems For any increased pain, shortness of breath, bleeding, nausea or vomiting, chest pain, or any unexpected problems, contact your Primary Care Provider. Call [facility] ([phone]) or report to the closest Emergency Room. Call 911 if necessary. 06/14/182324 <Electronically signed by Eduard Cline MD> Date Eduard Cline MD Cosigner Signature (If Indicated): Date CC: Vin Baca DO EMERGENCY DEPARTMENT Observed: 06/14/2018 Status: F Source: [place] SUMMARY 11:25 PM [facility] REPOSITORY [facility] Medical Records Department [address] [address] Emergency Department Summary 06/14/181999 MR#: [id number] Acct: [id number] Name: FRANCISCO HERNANDEZ Rep #: [id number] : 1950 68 From: Eduard Cline MD PCP: Vin Baca DO Status: DEP ER - ER Visit Summary Date of Service: 06/14/18 Chief Complaint: Acute headache History of Present Illness: The patient is a 68 F history of prior strokes, cochlear implant and migraine headaches. She has had migraine headaches for many years. She states this 1 started yesterday morning. Gradual onset worsening. Associated nausea no vomiting or diarrhea. Positive photophobia. No fever. No sinus congestion. She is on no blood thinners. She denies any trouble using her arms or legs. Physical Examination: Well-appearing older female. Vital signs are stable afebrile. HEENT exam atraumatic. Pupils round reactive light. No facial droop. Normal speech. No sinus tenderness. Neck nontender no meningismus. Lungs clear to auscultation bilaterally. Heart regular rhythm no murmur. Abdomen soft nontender. Extremities moving all 4. Calves nontender without edema. Back exam nontender. Neurologically she is awake and alert. Answers questions. No facial droop. Extraocular motions are intact. Normal speech. Equal symmetrical 5 out of 5 internet webmaster strength. Fingertip to nose within normal limits bilaterally. [id number] within normal limits bilaterally. Dorsi plantar flexion intact. 5 out of 5 motor strength and sensation both lower extremities. She can raise either leg off the bed. Her NIH score is 0. Test Results: None. Patient has had a recent CAT scan within the last month which showed chronic changes. Emergency Department Course and Treatment: Treated with IV fluids, IV Phenergan, IV DHE, IV Benadryl. Patient personally requested IV Toradol. States she gets it with all of her headaches and is. We discussed treating with Toradol given her age but she has normal renal function and I will proceed with the Toradol. On repeat exam at 2126 patient states I feel wonderful. Her headache is completely resolved. Her neurologic exam remains normal. She and her are comfortable with her being discharged home. Treatment Plan: Follow-up with your doctor as needed. Return if worse. Disposition: Discharge Impression: Acute cephalgia secondary to acute migraine This note was generated with Imagine Healthation software. It may contain incorrect words, spelling, [...] your Primary Care Provider. Call [facility] ([phone]) or report to the closest Emergency Room. Call 911 if necessary. 06/14/18 2682 <Electronically signed by Eduard Cline MD> Date Eduard Cline MD Cosigner Signature (If Indicated): Date CC: Vin Baca DO 12 LEAD ELECTROCARDIOGRAM Observed: 05/19/2018 Status: F Source: [place] 2:19 PM [facility] REPOSITORY [facility] Cardiovascular Services [address] [place] [address] 12 Lead EKG 05/16/18 1748 MR#: [id number] Acct: [id number] Name: FRANCISCO HERNANDEZ Rep #: [id number] : 1950 68 From: Aristides Cohen MD [...] ECG Confirmed by ARISTIDES COHEN MD ([id number]), videotape editor BENTLEY VARELA ([id number]) on 05/19/2018 2:19:07 PM Referred By: KINGSLEY Confirmed By:ARISTIDES COHEN MD 05/19/18 1419 Date Aristides Cohen MD CC: Vin Baca DO; Chato Allen DO Signed EMERGENCY DEPARTMENT Observed: 05/18/2018 Status: F Source: [place] SUMMARY 8:16 AM [facility] REPOSITORY [facility] Medical Records Department [address] [place] [address] Emergency Department Summary 05/16/18 2105 MR#: [id number] Acct: [id number] Name: FRANCISCO HERNANDEZ Rep #: [id number] : 1950 68 From: Chato Allen DO PCP: Vin Baca DO Status: DEP ER - ER Visit Summary Date of Service: 05/16/18 Chief Complaint: Confusion History of Present Illness: The patient is a 68 F who lives at home with family. Patient has COPD and pulmonary fibrosis and she has had prior stroke. Primary care physician is Dr. Baca. Pretzel Packer is Dr. Diallo. Patient was discharged from [facility] earlier this year. She has been at home. states she was recently hospitalized in [place] for hypercarbia. On Tuesday she fell and [...] mental status This note was generated with Imagine Healthation software. It may contain incorrect words, spelling, and punctuation that were not noted in review of the chart prior to signing ED Disposition - Plan for ED Patient: Disposition: Against Medical Advice Chief Complaint: Dizziness Instructions: ED Confusion Referrals: Vin Baca, [Primary Care Provider] - As soon as possible What to do if you have Problems For any increased pain, shortness of breath, bleeding, nausea or vomiting, chest pain, or any unexpected problems, contact your Primary Care Provider. Call [facility] ([phone]) or report to the closest Emergency Room. Call 911 if necessary. 05/18/18 0816 <Electronically signed by Chato Allen DO> Date Chato Allen DO Cosigner Signature (If Indicated): Date CC: Vin Baca DO URINALYSIS, COMPLETE Collected: 05/16/2018 Status: F Source: [place] 7:10 PM [facility] REPOSITORY Order Comment: Order Date: 05/16/18 How [...] URINE SEEN Performed By: #### L400.0001 #### [facility] [address] [place], [address] CBC W/DIFF, AUTOMATED Collected: 05/16/2018 Status: F Source: [place] 5:45 PM [facility] REPOSITORY TYPE CODE TESTS RESULT [...] Lymph 1.24 Performed By: #### L100.0100 #### [facility] [address] [place], [address] COMPREHENSIVE METABOLIC Collected: 05/16/2018 Status: F Source: [facility] 5:45 PM [facility] REPOSITORY TYPE CODE TESTS RESULT [...] 7 Performed By: #### L500.4050, L501.4010 #### [facility] [address] [place], [place], [id number] TROPONIN-I Collected: 05/16/2018 Status: F Source: [place] 5:45 PM [facility] REPOSITORY TYPE CODE TESTS RESULT OUT OF RANGE REFERENCE UNITS LAB L501.4010 <0.045 ng/mL Normal < 0.015 TROPONIN-I Result Comment: TROPONIN-I EXPECTED VALUES <0.045 Negative 0.045 - 0.590 Consistent with Cardiac Damage > OR = 0.600 Critical Value Not every elevated troponin is indicative of SC. These values should be used with clinical judgement in examining the patient's clinical picture for diagnosis. To establish a diagnosis of SC versus myocardial injury, there must be a demonstrated rise and/or fall in the troponin values, in addition to ischemic symptoms, EKG changes, new regional wall motion abnormality, and/or angiographical evidence. PLEASE NOTE: REFERENCE RANGES EDITED 17 Performed By: #### L500.4050, L501.4010 #### [facility] [address] [place], [place], [id number] BLOOD GASES BY [facility] Collected: 05/16/2018 Status: F Source: [place] 5:37 PM [facility] REPOSITORY TYPE CODE TESTS RESULT [...] SO2 ISTAT Performed By: #### L9000.0800 #### [facility] Point of Care [address] [place] [address] BRAIN/HEAD WITHOUT Observed: 05/16/2018 Status: F Source: [place] CONTRAST 5:28 PM [facility] REPOSITORY [facility] Imaging Services [address] [place] [address] Brain/Head without Contrast MR#: [id number] Acct: [id number] Name: FRANCISCO HERNANDEZ Rep #: [id number] : 1950 F 68 From: Erik Howard MD PCP: Vin Baca DO Status: REG ER Study: Brain/Head without Contrast Date of Exam: 05/16/18 Exam# [id number] Ordering Dr: Chato Allen DO STUDY: CT [...] CC: Vin Baca DO; Chato Allen DO Warp Tying Machine Knotter: Signed CHEST PA AND LATERAL Observed: 05/16/2018 Status: F Source: [place] 5:28 PM [facility] REPOSITORY [facility] Imaging Services [address] [place] [address] Chest PA and Lateral MR#: [id number] Acct: [id number] Name: FRANCISCO HERNANDEZ Rep #: [id number] : 1950 F 68 From: Erik Howard MD PCP: Vin Baca DO Status: REG ER Study: Chest PA and Lateral Date of Exam: 05/16/18 Exam# [id number] Ordering Dr: Chato Allen DO STUDY: X-RAY [...] CC: Vin Baca DO; Chato Allen DO Warp Tying Machine Knotter: Signed PULMONARY VISIT REPORT Observed: 04/13/2018 Status: F Source: [place] 10:36 AM [facility] REPOSITORY [facility] [place] [address] [place] [address] OFFICE VISIT Date of Service: 04/13/18 MR#: [id number] Acct: [id number] Name: FRANCISCO HERNANEDZ Rep #: [id number] : 1950 Provider: Gerry Diallo MD Age/Sex: 68/F Location: [facility] Status: Signed Assessment AND Plan Problems 1. [...] Discontinued: Plan Detail Follow Up 3 Months ([facility]) HPI 3 M FU: Chief Complaint: Recent hospitalization Details: Patient is a 68-year-old female, currently under the care of Dr. Baca, who presents for evaluation secondary to recent hospitalization. Since last visit, patient has been hospitalized at [facility] with details described below. Patient feels [...] patient 22 pages of documentation from [facility] were reviewed. Patient was admitted there [...] Patient was requested to go to a fpc, but refused and was sent home with family members. 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 Vessel Operator Required: No Accompanied by: Family / Other [...] DAILY #4 g 04/13/18 [Rx Confirmed 04/13/18] [facility] Medical History Encephalopathy (Acute) Leukocytosis (Acute) Hypotension [...] Inhaler Training Inhaler Training Procedure performed by: yoel Inhaler Training: Yes personally trained on inhaler use, [...] EMERGENCY DEPARTMENT Observed: 03/30/2018 Status: F Source: [place] SUMMARY 7:09 PM [facility] REPOSITORY [facility] Medical Records Department [address] [place] [address] Emergency Department Summary 03/30/18 1809 MR#: [id number] Acct: [id number] Name: FRANCISCO HERNANDEZ Rep #: [id number] : 1950 68 From: Josh Bermudez MD PCP: Vin Baca DO Status: REG [...] Impression: Migraine This note was generated with Imagine Healthation software. It may contain incorrect words, spelling, [...] your Primary Care Provider. Call [facility] ([phone]) or report to the closest Emergency Room. Call 911 if necessary. 03/30/18 190 <Electronically signed by Josh Bermudez MD> Date Josh Bermudez MD Cosigner Signature (If Indicated): Date CC: Vin Baca DO AMM Collected: 03/12/2018 Status: F Source: [facility] 5:58 AM [facility] REPOSITORY TYPE CODE TESTS RESULT OUT OF REFERENCE UNITS RANGE LAB AMM(LOINC) 25-35 mcmol/l High Ammonia 45 Performed By: #### AMM #### [place] [address] AMM Collected: 03/11/2018 Status: F Source: [facility] 6:30 AM [facility] REPOSITORY TYPE CODE TESTS RESULT OUT OF REFERENCE UNITS RANGE LAB AMM(LOINC) 25-35 mcmol/l High Ammonia 44 Performed By: #### VBG, B12, AMM, CMP, GFR, FOL #### [place] [address] VBG Collected: 03/11/2018 Status: F Source: [facility] 5:47 AM [facility] REPOSITORY TYPE CODE TESTS RESULT OUT OF [...] VBG, B12, AMM, CMP, GFR, FOL #### [facility] [address] [place] [address] B12 Collected: 03/11/2018 Status: F Source: [facility] 5:47 AM [facility] REPOSITORY TYPE CODE TESTS RESULT OUT OF REFERENCE UNITS RANGE LAB B12(LOINC) 211-911 pg/mL High Vitamin B12 1380 Lvl Performed By: #### VBG, B12, AMM, CMP, GFR, FOL #### [facility] [address] [place] [address] CMP Collected: 03/11/2018 Status: F Source: [facility] 5:47 AM [facility] REPOSITORY TYPE CODE TESTS RESULT OUT OF [...] VBG, B12, AMM, CMP, GFR, FOL #### [address] [address] .GFR Collected: 03/11/2018 Status: F Source: [facility] [employer] 5:47 AM [facility] REPOSITORY TYPE CODE TESTS RESULT OUT OF REFERENCE UNITS RANGE LAB GFRAA(LOINC ml/min/1.73 ) sqm GFR >60 Mongolian Result Comment: GFR Population mean for , [...] VBG, B12, AMM, CMP, GFR, FOL #### [address] [address] FOL Collected: 03/11/2018 Status: F Source: [facility] 5:47 AM [facility] REPOSIT[facility] TYPE CODE TESTS RESULT OUT OF REFERENCE UNITS RANGE LAB FOL(LOINC) 1.1-20.0 ng/mL High Folate 21.8 Performed By: #### VBG, B12, AMM, CMP, GFR, FOL #### [place] [id number] [address] [place] [address] US ABDOMEN/ABDOMEN DOPPLER Observed: 03/10/2018 Status: F Source: [facility] [place] 9:30 AM [facility] REPOSITORY ORIGINAL US ABDOMEN/ABDOMEN DOPPLER CLINICAL STATEMENT: [...] AM VBG Collected: 03/10/2018 Status: F Source: [facility] 6:54 AM [facility] REPOSITORY TYPE CODE TESTS RESULT OUT OF [...] AMM, CMP, GFR, VALPR, DIFF, MORPH #### [address] [address] CBC Collected: 03/10/2018 Status: F Source: [facility] 6:54 AM [facility] REPOSITORY TYPE CODE TESTS RESULT OUT OF [...] AMM, CMP, GFR, VALPR, DIFF, MORPH #### [address] [address] AMM Collected: 03/10/2018 Status: F Source: [facility] 6:54 AM [facility] REPOSITORY TYPE CODE TESTS RESULT OUT OF REFERENCE UNITS RANGE LAB AMM(LOINC) 25-35 mcmol/l High Ammonia 56 Performed By: #### VBG, CBC, AMM, CMP, GFR, VALPR, DIFF, MORPH #### [address] [address] CMP Collected: 03/10/2018 Status: F Source: [facility] 6:54 AM [facility] REPOSITORY TYPE CODE TESTS RESULT OUT OF [...] AMM, CMP, GFR, VALPR, DIFF, MORPH #### [address] [address] .GFR Collected: 03/10/2018 Status: F Source: [facility] 6:54 AM [facility] REPOSITORY TYPE CODE TESTS RESULT OUT OF REFERENCE UNITS RANGE LAB GFRAA(LOINC ml/min/1.73 ) sqm GFR >60 Mongolian Result Comment: GFR Population mean for , [...] AMM, CMP, GFR, VALPR, DIFF, MORPH #### [place] [address] VALPR Collected: 03/10/2018 Status: F Source: [facility] 6:54 AM [facility] REPOSITORY TYPE CODE TESTS RESULT OUT OF REFERENCE UNITS RANGE LAB LD017(LOINC ) LDose Valproic See eMAR Acid: LAB VALP(LOINC) 50-130 mcg/mL Valproic Acid 66 Lvl Performed By: #### VBG, CBC, AMM, CMP, GFR, VALPR, DIFF, MORPH #### [place] [address] .MANUAL DIFF Collected: 03/10/2018 Status: F Source: [facility] 6:54 AM [facility] REPOSITORY TYPE CODE TESTS RESULT OUT OF [...] AMM, CMP, GFR, VALPR, DIFF, MORPH #### [place] [address] .MORPH Collected: 03/10/2018 Status: F Source: [facility] 6:54 AM [facility] REPOSITORY TYPE CODE TESTS RESULT OUT OF REFERENCE UNITS RANGE LAB PLTE(LOINC ) Platelet Estimate Normal LAB MACYT(LOIN C) Macrocytosis Slight Performed By: #### VBG, CBC, AMM, CMP, GFR, VALPR, DIFF, MORPH #### [address] [address] AFPS Collected: 03/09/2018 Status: F Source: [facility] 12:47 PM [facility] REPOSITORY TYPE CODE TESTS RESULT OUT OF REFERENCE UNITS RANGE LAB AFPS(LOINC) 0.0-8.5 ng/mL AFP, Tumor 3.3 Marker Performed By: #### AFPS, AAT, RADHA, SMUSC, RAMONITA, HEPAC, COPPER #### [place] [address] AAT Collected: 03/09/2018 Status: F Source: [facility] 12:47 [facility] REPOSITORY TYPE CODE TESTS RESULT OUT OF REFERENCE UNITS RANGE LAB AAT(LOINC) 88-174 mg/dL Alpha 1 High Antitrypsin 217 Performed By: #### AFPS, AAT, RADHA, SMUSC, RAMONITA, HEPAC, COPPER #### [place] [address] RADHA Collected: 03/09/2018 Status: F Source: [facility] 12:47 [facility] REPOSITORY TYPE CODE TESTS RESULT OUT OF REFERENCE UNITS RANGE LAB RADHA(LOINC Neg 20 ) Mitochondrial Ab Neg 20 Performed By: #### AFPS, AAT, RADHA, SMUSC, RAMONITA, HEPAC, COPPER #### [place] [address] SMUSC Collected: 03/09/2018 Status: F Source: [facility] 12:47 [facility] REPOSITORY TYPE CODE TESTS RESULT OUT OF REFERENCE UNITS RANGE LAB SMUSC(LOINC Neg 20 ) Smooth Muscle Neg 20 Ab Performed By: #### AFPS, AAT, RADHA, SMUSC, RAMONITA, HEPAC, COPPER #### [place] [address] RAMONITA Collected: 03/09/2018 Status: F Source: [facility] 12:47 [facility] REPOSITORY TYPE CODE TESTS RESULT OUT OF RANGE REFERENCE UNITS LAB RAMONITA(LOINC) Neg 40 RAMONITA Neg 40 Performed By: #### AFPS, AAT, RADHA, SMUSC, RAMONITA, HEPAC, COPPER #### [place] [address] HEPAC Collected: 03/09/2018 Status: F Source: [facility] 12:47 [facility] REPOSITORY TYPE [...] AAT, RADHA, SMUSC, RAMONITA, HEPAC, COPPER #### [address] [address] CUS Collected: 03/09/2018 Status: F Source: [facility] 12:47 PM [facility] REPOSITORY TYPE CODE TESTS RESULT OUT OF REFERENCE UNITS RANGE LAB COPPER(LOIN 85-155 UG/DL C) Copper (s) 141 Result Comment: This test was developed and its performance characteristics determined by [facility] Pathology and Laboratory Medicine [place] ([facility]). It has not been cleared or approved by the FDA. -[facility] is regulated under CLIA as qualified to perform high-complexity testing. This test is used for clinical purposes. It should not be regarded as investigational or for research. Performed By: [facility] [address] [place] [address] Creative Services Specialist: Lisa Kuhn M.D. CLIA#: [id number] Phone#: Performed By: #### AFPS, AAT, RADHA, SMUSC, RAMONITA, HEPAC, COPPER #### [place] [id number] UA Collected: 03/09/2018 Status: F Source: [facility] 12:33 PM [facility] REPOSITORY TYPE CODE TESTS RESULT OUT OF [...] Negative Performed By: #### UA, UAMIC #### [place] [address] UAMIC Collected: 03/09/2018 Status: F Source: [employer] 12:33 PM [facility] REPOSITORY TYPE CODE TESTS RESULT OUT OF REFERENCE UNITS RANGE LAB RBCUA(LOIN 0-2 /hpf C) UA RBC Rare LAB WBCUA(LOIN 0-5 /hpf C) UA WBC Rare LAB EPIUA(LOIN 0-20 /hpf C) UA Squam Epithelial 0-2 LAB MUCUA(LOIN /hpf C) UA Mucous Trace Performed By: #### UA, UAMIC #### [place] [address] BG Collected: 03/09/2018 Status: F Source: [employer] 2:43 AM [facility] REPOSITORY TYPE CODE TESTS RESULT OUT OF [...] 738 Pressure Performed By: #### BG #### [place] [address] CT HEAD OR BRAIN W/O Observed: 03/09/2018 Status: F Source: [employer] CONTRAST 1:23 AM [facility] REPOSITORY ORIGINAL CT HEAD OR BRAIN W/O [...] 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 Interpreted By: Josh Nur MD Preliminary Report By: Josh Nur MD Electronically Signed By: Josh Nur MD Dictated Date: 03/09/2018 1:33:30 AM Prelim Date: 03/09/2018 1:33:30 AM Sign Date: 03/09/2018 1:37:34 AM CBC Collected: 03/09/2018 Status: F Source: [facility] 12:53 AM [facility] REPOSITORY TYPE CODE TESTS RESULT OUT OF [...] PHOS, CMP, TROPI, GFR, DIFF, MORPH #### [place] [address] LAC Collected: 03/09/2018 Status: F Source: [facility] 12:53 AM [facility] REPOSITORY TYPE CODE TESTS RESULT OUT OF REFERENCE UNITS RANGE LAB LAC(LOINC) 0.2-2.0 mmol/L Lactic Acid 1.1 Lvl Performed By: #### CBC, LAC, AMM, MG, PHOS, CMP, TROPI, GFR, DIFF, MORPH #### [place] [address] AMM Collected: 03/09/2018 Status: F Source: [facility] 12:53 AM [facility] REPOSITORY TYPE CODE TESTS RESULT OUT OF REFERENCE UNITS RANGE LAB AMM(LOINC) 25-35 mcmol/l High Ammonia 77 Performed By: #### CBC, LAC, AMM, MG, PHOS, CMP, TROPI, GFR, DIFF, MORPH #### [place] [address] MG Collected: 03/09/2018 Status: F Source: [facility] 12:53 AM [facility] REPOSITORY TYPE CODE TESTS RESULT OUT OF REFERENCE UNITS RANGE LAB MG(LOINC) 1.6-2.4 mg/dL Magnesium Lvl 2.2 Performed By: #### CBC, LAC, AMM, MG, PHOS, CMP, TROPI, GFR, DIFF, MORPH #### [place] [address] PHOS Collected: 03/09/2018 Status: F Source: [facility] 12:53 AM [facility] REPOSITORY TYPE CODE TESTS RESULT OUT OF REFERENCE UNITS RANGE LAB PHOS(LOINC 2.5-4.5 mg/dL ) Phosphorus 3.4 Performed By: #### CBC, LAC, AMM, MG, PHOS, CMP, TROPI, GFR, DIFF, MORPH #### [place] [address] CMP Collected: 03/09/2018 Status: F Source: [facility] 12:53 AM [facility] REPOSITORY TYPE CODE TESTS RESULT OUT OF [...] PHOS, CMP, TROPI, GFR, DIFF, MORPH #### [address] [address] TROPI Collected: 03/09/2018 Status: F Source: [facility] 12:53 AM [facility] REPOSITORY TYPE CODE TESTS RESULT [...] ECG changes may help assess possibility of SC. *Other non-acute coronary syndrome conditions such as CHF, myocarditis, pulmonary emboli, sepsis and cardiac surgery could result in myocardial damage and increased troponin levels. Performed By: #### CBC, LAC, AMM, MG, PHOS, CMP, TROPI, GFR, DIFF, MORPH #### [place] [id number] [place] [address] .GFR Collected: 03/09/2018 Status: F Source: [facility] 12:53 AM [facility] REPOSITORY TYPE CODE TESTS RESULT OUT OF REFERENCE UNITS RANGE LAB GFRAA(LOINC ml/min/1.73 ) sqm GFR >60 Mongolian Result Comment: GFR Population mean for , [...] PHOS, CMP, TROPI, GFR, DIFF, MORPH #### [address] [address] .MANUAL DIFF Collected: 03/09/2018 Status: F Source: [facility] 12:53 AM [facility] REPOSITORY TYPE CODE TESTS RESULT OUT OF [...] PHOS, CMP, TROPI, GFR, DIFF, MORPH #### [address] [address] .MORPH Collected: 03/09/2018 Status: F Source: [facility] 12:53 [facility] REPOSITORY TYPE CODE TESTS RESULT OUT OF REFERENCE UNITS RANGE LAB PLTE(LOINC ) Platelet Estimate Normal LAB ANIS(LOINC ) Anisocytosis Slight LAB POIK(LOINC ) Poik Slight LAB MACYT(LOIN C) Macrocytosis Slight LAB OVAL(LOINC ) Ovalocytes Few Performed By: #### CBC, LAC, AMM, MG, PHOS, CMP, TROPI, GFR, DIFF, MORPH #### [facility] [address] [place] [address] XR CHEST 1 VIEW Observed: 03/09/2018 Status: F Source: [facility] 12:21 AM [facility] REPOSITORY ORIGINAL XR CHEST 1 VIEW CLINICAL [...] AM CBC Collected: 03/08/2018 Status: C Source: [facility] 5:34 AM [facility] REPOSITORY TYPE CODE TESTS RESULT OUT OF [...] Performed By: #### CBC, DIFF, MORPH #### [address] [address] .MANUAL DIFF Collected: 03/08/2018 Status: F Source: [facility] 5:34 AM [facility] REPOSITORY TYPE CODE TESTS RESULT OUT OF [...] Performed By: #### CBC, DIFF, MORPH #### [address] [address] .MORPH Collected: 03/08/2018 Status: F Source: [facility] 5:34 AM [facility] REPOSITORY TYPE CODE TESTS RESULT OUT OF REFERENCE UNITS RANGE LAB PLTE(LOINC) Platelet Normal Estimate Performed By: #### CBC, DIFF, MORPH #### [address] [address] ABG Collected: 03/07/2018 Status: F Source: [facility] 5:04 AM [facility] REPOSITORY TYPE CODE TESTS RESULT OUT OF REFERENCE UNITS RANGE LAB PH(LOINC) 7.35-7.45 pH 7.41 LAB PCO2(LOINC) 35.0-45.0 mmHg pCO2 38.4 LAB PO2(LOINC) 80.0-100.0 mmHg Low pO2 50.0 LAB HCO3(LOINC) 22.0-26.0 mmol/L HCO3 24.1 LAB TCO2(LOINC) 19-24 mmol/L High CO2 Totl 25 LAB BE(LOINC) -2.4-2.3 mmol/L Base Excess -1.0 LAB O2SAT(LOINC 95-98 % ) Low O2 Sat 86 Performed By: #### ABG #### [place] [address] [place], [place] [address] Observed: 03/06/2018 Status: F Source: [facility] 11:40 AM [facility] REPOSITORY . MICRO - Microbiology PROCEDURE: Blood [...] *1: This test was performed at: [facility], [address] [place] [address], [address] [place] [address] Performed By: #### CBL #### [address] [address] CBC Collected: 03/06/2018 Status: C Source: [facility] 11:14 AM [facility] REPOSITORY TYPE CODE TESTS RESULT OUT OF [...] Performed By: #### CBC, DIFF, MORPH #### [address] [address] #### BMP, GFR #### [place] [address] BMP Collected: 03/06/2018 Status: F Source: [facility] 11:14 AM [facility] REPOSITORY TYPE CODE TESTS RESULT OUT OF [...] Performed By: #### CBC, DIFF, MORPH #### [address] [address] #### BMP, GFR #### [place] [address] .GFR Collected: 03/06/2018 Status: F Source: [facility] [employer] 11:14 AM [facility] REPOSITORY TYPE CODE TESTS RESULT OUT OF REFERENCE UNITS RANGE LAB GFRAA(LOINC ml/min/1.73 ) sqm GFR 75 Mongolian Result Comment: GFR Population mean for , [...] Performed By: #### CBC, DIFF, MORPH #### [address] [address] #### BMP, GFR #### [address] [address] .MANUAL DIFF Collected: 03/06/2018 Status: F Source: [facility] 11:14 AM [facility] REPOSITORY TYPE CODE TESTS RESULT OUT OF [...] Performed By: #### CBC, DIFF, MORPH #### [address] [address] #### BMP, GFR #### [place] [address] .MORPH Collected: 03/06/2018 Status: F Source: [facility] 11:14 [facility] REPOSITORY TYPE CODE TESTS RESULT OUT OF REFERENCE UNITS RANGE LAB PLTE(LOINC) Platelet Normal Estimate Performed By: #### CBC, DIFF, MORPH #### [address] [address] #### BMP, GFR #### [place] [address] TROP Collected: 03/06/2018 Status: F Source: [facility] 11:14 [facility] REPOSITORY TYPE CODE TESTS RESULT OUT OF REFERENCE UNITS RANGE LAB TROP(LOINC) 0.000-0.040 ng/mL Troponin <0.020 Result Comment: Troponin I reference range: 0.00-0.040 ng/mL Negative and non-diagnostic. >0.040 ng/mL Consistent with cardiac damage, increased clinical risk and possibility of myocardial infarction. Serial measurements, a rise & fall in test results, clinical history, appropriate symptoms and/or ECG changes may help assess possibility of SC. *Other non-acute coronary syndrome conditions such as CHF, myocarditis, pulmonary emboli, sepsis and cardiac surgery could result in myocardial damage and increased troponin levels. Performed By: #### TROP #### [place] [address] Observed: 03/06/2018 Status: F Source: [facility] 11:14 [facility] REPOSITORY . MICRO - Microbiology PROCEDURE: Blood [...] *1: This test was performed at: [facility], [address] [place] [address], [address] [place] [address] Performed By: #### CBL #### [place] [address] XR CHEST 1 VIEW Observed: 03/06/2018 Status: F Source: [facility] 10:31 AM [facility] REPOSITORY ORIGINAL XR CHEST 1 VIEW PORTABLE [...] EMERGENCY DEPARTMENT Observed: 02/05/2018 Status: F Source: [facility] 8:05 PM [facility] REPOSITORY [facility] Medical Records Department [address] [place] [address] [place] [address] Emergency Department Summary 02/05/182001 MR#: [id number] Acct: [id number] Name: FRANCISCO HERNANDEZ Rep #: [id number] : 1950 68 From: Harshad Connors MD [...] Impression: Migraine This note was generated with NoWait dictation software. It may contain incorrect words, [...] your Primary Care Provider. Call [facility] ([phone]) or report to the closest Emergency Room. Call 911 if necessary. 02/05/182004 <Electronically signed by Harshad Connors MD> Date Harshad Connors MD Cosigner Signature (If Indicated): Date CC: Vin Baca DO DISCHARGE INSTRUCTION Observed: 02/05/2018 Status: F Source: [place] 8:05 PM [facility] REPOSITORY [facility] Medical Records Department [address] [place] [address] Discharge Instruction 02/05/182004 MR#: [id number] Acct: [id number] Name: FRANCISCO HERNANDEZ Rep #: [id number] : 1950 68 From: Harshad Connors MD [...] your Primary Care Provider. Call [facility] ([phone]) or report to the closest Emergency Room. Call 911 if necessary. 02/05/182004 <Electronically signed by Harshad Connors MD> Date Harshad Sigalaer Signature (If Indicated): Date CC: Vin Baca DO PULMONARY VISIT REPORT Observed: 12/30/2017 Status: F Source: [place] 5:50 PM [facility] REPOSITORY [facility] [address] [place] [address] OFFICE VISIT Date of Service: 12/29/17 MR#: [id number] Acct: [id number] Name: FRANCISCO HERNANDEZ Rep #: [id number] : 1950 Provider: Faye Perez Age/Sex: 67/F Location: [facility].PMW Status: Signed Assessment AND Plan 1. Chronic [...] months. Plan Detail Follow Up 3 Months ([facility]) HPI 3 M FU: Chief [...] brachial Intake Visit Reasons: 3 M FU [facility] Vendor: Pérez Accompanied by: Allergies Sulfa (Sulfonamide [...] mg PO HS 12/29/17 [History Confirmed 12/29/17] PFSH Medical History Encephalopathy (Acute) Leukocytosis (Acute) [...] Z72.0 12/30/17 1750 <Electronically signed by Faye Perez MILL HANDRickC> Date Faye HERNANDESC Cosigner Signature: Date (if applicable) CC: Vin Baca DO [facility] Collected: 12/26/2017 Status: F Source: [facility] 9:18 AM [facility] REPOSITORY TYPE CODE TESTS [...] By: #### CMP, GFR, TSH, FT3 #### [address] [address] #### BOBBY #### [facility] [address] [place] [address] .GFR Collected: 12/26/2017 Status: F Source: [facility] 9:18 AM [facility] REPOSITORY TYPE CODE TESTS RESULT OUT OF REFERENCE UNITS RANGE LAB GFRAA(LOINC ml/min/1.73 ) sqm GFR >60 Mongolian Result Comment: GFR Population mean for , [...] By: #### CMP, GFR, TSH, FT3 #### [address] [address] #### CORTA #### [place] [id number] TSH Collected: 12/26/2017 Status: F Source: [facility] 9:18 AM [facility] REPOSITORY TYPE CODE TESTS RESULT OUT OF RANGE REFERENCE UNITS LAB TSH(LOINC) 0.27-4.20 mcIU/mL Low TSH 0.02 Result Comment: Below normal(expected)range Performed By: #### CMP, GFR, TSH, FT3 #### [address] [address] #### CORTA #### [place] [address] FT3 Collected: 12/26/2017 Status: F Source: [facility] 9:18 AM [facility] REPOSITORY TYPE CODE TESTS RESULT OUT OF RANGE REFERENCE UNITS LAB FT3(LOINC) 2.3-4.0 pg/mL Low Free T3 2.2 Performed By: #### CMP, GFR, TSH, FT3 #### [address] [address] #### CORTA #### [address] [address] CORTA Collected: 12/26/2017 Status: F Source: [facility] 9:18 AM [facility] REPOSITORY TYPE CODE TESTS RESULT OUT OF RANGE REFERENCE UNITS LAB CORTA(LOINC 6.5-26.0 mcg/dL ) Low Cortisol, 3.4 AM Performed By: #### CMP, GFR, TSH, FT3 #### [address] [address] #### CORTA #### [place] [address] EMERGENCY DEPARTMENT Observed: 12/14/2017 Status: F Source: [facility] [facility] 6:53 PM [facility] REPOSITORY [facility] Medical Records Department [address] [place] [place] [address] Emergency Department Summary 12/14/17 1747 MR#: [id number] Acct: [id number] Name: FRANCISCO HERNANDEZ Jayjay Rep #: [id number] : 1950 67 From: Kassie Guzmán MD [...] Migraine headache This note was generated with NoWait dictation software. It may contain incorrect words, [...] your Primary Care Provider. Call [facility] ([phone]) or report to the closest Emergency Room. Call 911 if necessary. 12/14/17 9113 <Electronically signed by Kassie Guzmán MD> Date Kassie Guzmán MD Cosigner Signature (If Indicated): Date CC: Vin Baca DO DISCHARGE INSTRUCTION Observed: 12/14/2017 Status: F Source: [place] 6:51 PM [facility] REPOSITORY [facility] Medical Records Department [address] [place] [address] Discharge Instruction 12/14/171850 MR#: [id number] Acct: [id number] Name: FRANCISCO HERNANDEZ Rep #: [id number] : 1950 67 From: Kassie Guzmán MD [...] your Primary Care Provider. Call [facility] ([phone]) or report to the closest Emergency Room. Call 911 if necessary. 12/14/171850 <Electronically signed by Kassie Guzmán MD> Date Kassie Guzmán MD Cosigner Signature (If Indicated): Date CC: Vin Baca DO AMMONIA Collected: 12/08/2017 Status: F Source: [place] 4:07 PM [facility] REPOSITORY Order Comment: CALL RESULTS [id number] FAX RESULTS [id number] TYPE CODE TESTS RESULT OUT OF RANGE REFERENCE UNITS LAB L503.5510 11-32 umol/L Normal AMMONIA 12.0 Performed By: #### L503.5510 #### [facility] [place], [address] VALPR Collected: 12/08/2017 Status: F Source: [facility] 3:49 PM [facility] REPOSITORY TYPE CODE TESTS RESULT OUT OF REFERENCE UNITS RANGE LAB LD017(LOIN C) LDose Valproic Unknown Acid: LAB VALP(LOINC 50.0-100.0 mcg/mL ) Valproic Acid 55.4 Lvl Performed By: #### VALPR, AMM #### [place] [address] #### RAMONITA #### [place] [address] RAMONITA Collected: 12/08/2017 Status: F Source: [facility] 3:49 PM [facility] REPOSITORY TYPE CODE TESTS RESULT OUT OF RANGE REFERENCE UNITS LAB RAMONITA(LOINC) Neg 40 RAMONITA Neg 40 Performed By: #### VALPR, AMM #### [place] [address] #### RAMONITA #### [place] [address] AMM Collected: 12/08/2017 Status: F Source: [facility] 3:49 PM [facility] REPOSITORY TYPE CODE TESTS RESULT OUT OF REFERENCE UNITS RANGE LAB AMM(LOINC) Ammonia See Below Result Comment: See Seperate Report Performed By: #### VALPR, AMM #### [place] [address] #### RAMONITA #### [place] [address] XR SPINE CERVICAL Observed: 11/18/2017 Status: F Source: [facility] MINIMUM 4 VIEWS 11:46 AM [facility] REPOSITORY ORIGINAL XR SPINE CERVICAL MINIMUM 4 [...] EMERGENCY DEPARTMENT Observed: 11/16/2017 Status: F Source: [facility] [facility] 12:59 AM [facility] REPOSITORY [facility] Medical Records Department [address] [place] [address] Emergency Department Summary 11/15/172042 MR#: [id number] Acct: [id number] Name: FRANCISCO HERNANDEZ Rep #: [id number] : 1950 67 From: Marin Kraft MD [...] Migraine headache. This note was generated with Imagine Healthation software. It may contain incorrect words, spelling, and punctuation that were not noted in review of the chart prior to signing ED Disposition - Plan for ED Patient: Disposition: Home or Assisted Living Chief Complaint: Headache Instructions: ED Headache Migraine Referrals: Vin Baca DO [Primary Care Provider] - 1-2 Days if not improving What to do if you have Problems For any increased pain, shortness of breath, bleeding, nausea or vomiting, chest pain, or any unexpected problems, contact your Primary Care Provider. Call [facility] ([phone]) or report to the closest Emergency Room. Call 911 if necessary. 11/16/17 0059 <Electronically signed by Marin Kraft MD> Date Marin Kraft MD Cosigner Signature (If Indicated): Date CC: Vin Baca DO EMERGENCY DEPARTMENT Observed: 11/14/2017 Status: F Source: [facility] [facility] 11:35 PM [facility] REPOSITORY [facility] Medical Records Department [address] [place] [address] Emergency Department Summary 11/14/17 1725 MR#: [id number] Acct: [id number] Name: FRANCISCO HERNANDEZ Rep #: [id number] : 1950 67 From: Josh Bermudze MD PCP: Vin Baca DO Status: DEP [...] Migraine headache-resolved This note was generated with NoWait dictation software. It may contain incorrect words, spelling, and punctuation that were not noted in review of the chart prior to signing ED Disposition - Plan for ED Patient: Disposition: Home or Assisted Living Chief Complaint: Headache Instructions: ED Headache Migraine Referrals: Vin Baca, [Primary Care Provider] - What to do if you have Problems For any increased pain, shortness of breath, bleeding, nausea or vomiting, chest pain, or any unexpected problems, contact your Primary Care Provider. Call [employer] [facility] ([phone]) or report to the closest Emergency Room. Call 911 if necessary. 11/14/17 8406 <Electronically signed by Josh Bermudez MD> Date Josh Bermudez MD Cosigner Signature (If Indicated): Date CC: Vin Baca DO PHV Collected: 11/01/2017 Status: F Source: [facility] 7:15 AM [facility] REPOSITORY TYPE CODE TESTS RESULT OUT OF REFERENCE UNITS RANGE LAB PHV(LOINC) 7.35-7.45 Low pH Venous 7.28 Performed By: #### PHV #### [address] [address] CBC Collected: 11/01/2017 Status: F Source: [facility] 7:15 AM [facility] REPOSITORY TYPE CODE TESTS RESULT OUT OF [...] CBC, ADIFF, ANEU, MG, GFR, BMP #### [address] [address] .AUTO DIFF Collected: 11/01/2017 Status: F Source: [facility] 7:15 [facility] REPOSITORY TYPE CODE TESTS RESULT OUT OF [...] CBC, ADIFF, ANEU, MG, GFR, BMP #### [address] [address] .NEUABS Collected: 11/01/2017 Status: F Source: [facility] 7:15 AM [facility] REPOSITORY TYPE CODE TESTS RESULT OUT OF REFERENCE UNITS RANGE LAB ANEU(LOINC) 2.85-6.16 10 3/mcL High Neutrophil, 12.40 Absolute Performed By: #### CBC, ADIFF, ANEU, MG, GFR, BMP #### [address] [address] MG Collected: 11/01/2017 Status: F Source: [facility] 7:15 AM [facility] REPOSITORY TYPE CODE TESTS RESULT OUT OF REFERENCE UNITS RANGE LAB MG(LOINC) 1.7-2.5 mg/dL Magnesium Lvl 2.1 Performed By: #### CBC, ADIFF, ANEU, MG, GFR, BMP #### [address] [address] .GFR Collected: 11/01/2017 Status: F Source: [facility] 7:15 AM [facility] REPOSITORY TYPE CODE TESTS RESULT OUT OF REFERENCE UNITS RANGE LAB GFRAA(LOINC ml/min/1.73 ) sqm GFR 148 Mongolian Result Comment: GFR Population mean for , [...] CBC, ADIFF, ANEU, MG, GFR, BMP #### [address] [place], [place] [address] BMP Collected: 11/01/2017 Status: F Source: [facility] [employer] 7:15 AM [facility] REPOSITORY TYPE CODE TESTS RESULT OUT OF [...] CBC, ADIFF, ANEU, MG, GFR, BMP #### [facility] [address] [place], [place] [address] Observed: 11/01/2017 Status: F Source: [place] [employer] [facility] 12:12 AM [facility] REPOSITORY . MICRO - Microbiology PROCEDURE: Streptococcus [...] Locations *1: This test was performed at: [address] Performed By: #### SPAG #### [place] [address] Observed: 11/01/2017 Status: F [facility] 12:12 AM [facility] REPOSITORY . MICRO - Microbiology PROCEDURE: Legionella [...] Locations *1: This test was performed at: [address] Performed By: #### LEA #### [address] [address] FES Collected: 10/31/2017 Status: F Source: [facility] 11:52 [facility] REPOSITORY TYPE CODE TESTS RESULT OUT OF RANGE REFERENCE UNITS LAB FE(LOINC) 65-170 mcg/dL Low Iron 13 LAB IBC(LOINC) 250-450 mcg/dL TIBC 314 LAB FESAT(LOINC % ) Iron Sat 4 Performed By: #### FES, LAC #### [address] [address] #### MYCO #### [address] [address] LAC Collected: 10/31/2017 Status: F Source: [facility] 11:52 [facility] REPOSITORY TYPE CODE TESTS RESULT OUT OF REFERENCE UNITS RANGE LAB LAC(LOINC) 0.5-2.2 mmol/L Lactic Acid 1.7 Lvl Performed By: #### FES, LAC #### [place] [address] #### MYCO #### [place] [address] MYCO Collected: 10/31/2017 Status: F Source: [facility] 11:52 [facility] REPOSITORY TYPE CODE TESTS RESULT OUT OF REFERENCE UNITS RANGE LAB [id number](LOINC) Mycoplasma IgM Negative Result Comment: INTERPRETATION OF MYCOPLASMA BY EIA (Effective 06/25/04): Negative No detectable antibodies to M. pneumoniae. Indicates absence of current or previous infection. Positive Reactive for antibodies to M. pneumoniae. Indicates a past or recent infection. Equivocal Equivocal for antibodies to M. pneumoniae. Repeat testing by an alternate method suggested. LAB CD:[id number](LOINC) Mycoplasma IgG Neg Result Comment: INTERPRETATION OF MYCOPLASMA BY EIA (Effective 06/25/04): Negative No detectable antibodies to M. pneumoniae. Indicates absence of current or previous infection. Positive Reactive for antibodies to M. pneumoniae. Indicates a past or recent infection. Equivocal Equivocal for antibodies to M. pneumoniae. Repeat testing by an alternate method suggested. Performed By: #### FES, LAC #### [place] [address] #### MYCO #### [facility] [address] [place], [place] [address] XR CHEST 2 VIEWS Observed: 10/31/2017 Status: F Source: [facility] 9:08 PM [facility] REPOSITORY ORIGINAL XR CHEST 2 VIEWS CLINICAL [...] PM CBC Collected: 10/31/2017 Status: F Source: [facility] 8:48 PM [facility] REPOSITORY TYPE CODE TESTS RESULT OUT OF [...] #### CBC, ADIFF, ANEU, GFR, BMP #### [address] [address] .AUTO DIFF Collected: 10/31/2017 Status: F Source: [facility] 8:48 PM [facility] REPOSITORY TYPE CODE TESTS RESULT OUT OF [...] #### CBC, ADIFF, ANEU, GFR, BMP #### [address] [address] .NEUABS Collected: 10/31/2017 Status: F Source: [facility] 8:48 PM [facility] REPOSITORY TYPE CODE TESTS RESULT OUT OF REFERENCE UNITS RANGE LAB ANEU(LOINC) 2.85-6.16 10 3/mcL High Neutrophil, 11.40 Absolute Performed By: #### CBC, ADIFF, ANEU, GFR, BMP #### [address] [address] .GFR Collected: 10/31/2017 Status: F Source: [facility] 8:48 PM [facility] REPOSITORY TYPE CODE TESTS RESULT OUT OF REFERENCE UNITS RANGE LAB GFRAA(LOINC ml/min/1.73 ) sqm GFR 100 Mongolian Result Comment: GFR Population mean for , [...] #### CBC, ADIFF, ANEU, GFR, BMP #### [address] [address] BMP Collected: 10/31/2017 Status: F Source: [facility] 8:48 PM [facility] REPOSITORY TYPE CODE TESTS [...] #### CBC, ADIFF, ANEU, GFR, BMP #### [address] [place], [place] [address] CMP Collected: 10/07/2017 Status: F Source: [facility] 8:41 AM [facility] REPOSITORY TYPE CODE TESTS [...] By: #### CMP, GFR, FT3, TSH #### [address] [place], [place] [address] #### CORTA #### [address] [address] .GFR Collected: 10/07/2017 Status: F Source: [employer] 8:41 AM [facility] REPOSITORY TYPE CODE TESTS RESULT OUT OF REFERENCE UNITS RANGE LAB GFRAA(LOINC ml/min/1.73 ) sqm GFR 105 Mongolian Result Comment: GFR Population mean for , [...] #### CMP, GFR, FT3, TSH #### [place] [address] [address] #### CORTA #### [address] [address] FT3 Collected: 10/07/2017 Status: F Source: [place] [employer] 8:41 AM [facility] REPOSITORY TYPE CODE TESTS RESULT OUT OF RANGE REFERENCE UNITS LAB FT3(LOINC) 2.3-4.0 pg/mL Free T3 3.1 Performed By: #### CMP, GFR, FT3, TSH #### [address] [address] #### CORTA #### [address] [address] TSH Collected: 10/07/2017 Status: F Source: [facility] 8:41 AM [facility] TYPE CODE TESTS RESULT OUT OF RANGE REFERENCE UNITS LAB TSH(LOINC) 0.27-4.20 mcIU/mL Low TSH <0.01 Result Comment: Below measuring range Performed By: #### CMP, GFR, FT3, TSH #### [address] [place], [place] [address] #### CORTA #### [address] [address] CORTA Collected: 10/07/2017 Status: F Source: [facility] 8:41 AM [facility] REPOSITORY TYPE CODE TESTS RESULT OUT OF REFERENCE UNITS RANGE LAB 9813-7 6.5-26.0 mcg/dL CORTISOL 14.4 Performed By: #### CMP, GFR, FT3, TSH #### [address] [address] #### CORTA #### [address] [address] PULMONARY VISIT REPORT Observed: 09/29/2017 Status: F Source: [place] 6:17 AM [facility] REPOSITORY Pulmonary Medicine [address] [place] [address] OFFICE VISIT Date of Service: 09/28/17 MR#: [id number] Acct: [id number] Name: FRANCISCO HERNANDEZ Rep #: [id number] : 1950 Provider: Gerry Diallo MD Age/Sex: 67/F Location: [facility].PMW Status: Signed Assessment AND Plan 1. Chronic [...] kg Intake Visit Reasons: 3 M FU [facility] Vendor: Pérez Accompanied by: Allergies Sulfa (Sulfonamide [...] Q12H #10.2 g 09/28/17 [Rx Confirmed 09/28/17] PFSH Medical History Encephalopathy (Acute) Leukocytosis (Acute) [...] DO CBC Collected: 09/23/2017 Status: F Source: [facility] 9:34 AM [facility] REPOSITORY TYPE CODE TESTS RESULT OUT OF [...] #### CBC, ADIFF, ANEU, CMP, GFR #### [address] [place], [place] [address] #### CORTA, ACTH #### [address] [address] .AUTO DIFF Collected: 09/23/2017 Status: F Source: [facility] 9:34 AM [facility] REPOSITORY TYPE CODE TESTS RESULT OUT OF [...] #### CBC, ADIFF, ANEU, CMP, GFR #### [address] [address] #### CORTA, ACTH #### [place] [address] .NEUABS Collected: 09/23/2017 Status: F Source: [employer] 9:34 AM [facility] REPOSITORY TYPE CODE TESTS RESULT OUT OF REFERENCE UNITS RANGE LAB ANEU(LOINC) 2.85-6.16 10 3/mcL Neutrophil, 4.10 Absolute Performed By: #### CBC, ADIFF, ANEU, CMP, GFR #### [address] [address] #### CORTA, ACTH #### [place] [address] CMP Collected: 09/23/2017 Status: F Source: [facility] 9:34 AM [facility] REPOSITORY TYPE CODE TESTS RESULT OUT OF [...] #### CBC, ADIFF, ANEU, CMP, GFR #### [address] [address] #### CORTA, ACTH #### [place] [address] .GFR Collected: 09/23/2017 Status: F Source: [facility] 9:34 AM [facility] REPOSITORY TYPE CODE TESTS RESULT OUT OF REFERENCE UNITS RANGE LAB GFRAA(LOINC ml/min/1.73 ) sqm GFR 126 Mongolian Result Comment: GFR Population mean for , [...] #### CBC, ADIFF, ANEU, CMP, GFR #### [address] [address] #### CORTA, ACTH #### [address] [address] CORTA Collected: 09/23/2017 Status: F Source: [facility] 9:34 AM [facility] REPOSITORY TYPE CODE TESTS RESULT OUT OF REFERENCE UNITS RANGE LAB 9813-7 6.5-26.0 mcg/dL CORTISOL 8.4 Performed By: #### CBC, ADIFF, ANEU, CMP, GFR #### [address] [address] #### CORTA, ACTH #### [address] [address] ACTH Collected: 09/23/2017 Status: F Source: [facility] 9:34 AM [facility] REPOSITORY TYPE CODE TESTS RESULT OUT OF RANGE REFERENCE UNITS LAB ACTH(LOINC) 9.0-46.0 pg/mL ACTH 15.7 Performed By: #### CBC, ADIFF, ANEU, CMP, GFR #### [address] [address] #### CORTA, ACTH #### [address] [address] PULMONARY FUNCTION Observed: 09/23/2017 Status: F Source: [place] REPORT COMP 5:57 AM [facility] REPOSITORY [facility] Pulmonary Services/Neurology [address] [place] [address] MR#: [id number] Acct: [id number] Name: FRANCISCO HERNANDEZ Rep #: [id number] : 1950 67 From: Gerry Diallo MD Referring Dr: Faye Perez NP Status: REG CLI Ordering Dr: Date: Location: PSN Sex: F C COMPLETE PULMONARY FUNCTION TEST INTERPRETATION Brief HPI: Patient is a 67 year old female, currently under the care of myself, who presents to [facility] for complete pulmonary function tests secondary to [...] Perez Date Dictated: 09/23/17554 Date Transcribed: 09/23/17554 Warp Tying Machine Knotter: SHAUNA Signed ALLERGIES ALLERGIES DATE TYPE / NAME / CODE REACTION SEVERITY SOURCE CODE 07/13/2018 Drug prochlorperazine Other - [facility] Allergy/41 edisylate/[id number](R Restless legs Community 8034639(SN XNORM) [facility]) Repository 07/13/2018 Drug prochlorperazine Other - [place] Allergy/41 maleate/[id number](RXN Restless legs Community 1848371(SN ORM) [facility]) Repository 07/13/2018 Drug Sulfa (Sulfonamide Other - [place] Allergy/41 Antibiotics)/[id number] with blood Community 9699276(SN 1(RXNORM) [facility]) Repository ENCOUNTERS ENCOUNTERS ADMIT/DISCHARGE ACCOUNT NUMBER ADMITTING ENCOUNTER LOCATION SOURCE CLASS 07/13/2018 [id number] [place], Inpatient [place] Encounter [facility] ding:GX4Suku Repository : AP245Iyq: 1 07/13/2018 [id number] [place], Ambulatory BMSBuilding: [place] BMS.[facility] Repository 07/13/2018 [id number] [place], Ambulatory BMSBuilding: [place] BMS.[facility] Repository 07/13/2018 [id number] [place], Ambulatory BMSBuilding: [place] BMS.[facility] Repository 07/07/2018 [id number] Ambulatory BMSBuilding: [facility] Repository 07/06/2018 [id number] Ambulatory [facility] ding:PSN Repository 06/23/2018/06/23/19 [id number] Emergency [address] ding:ED Repository 06/22/2018 [id number] Ambulatory [facility] ding:MEDOUTP Repository 06/14/2018/06/14/20 [id number] Emergency [place] ding:ED Repository 05/16/2018/05/16/20 [id number] Emergency [address] ding:ED Repository 04/13/2018/04/13/20 [id number] Ambulatory BMSBuilding: [place] 18 BMS.[facility] Repository 03/30/2018/03/30/20 [id number] Emergency [address] ding:ED Repository 03/08/2018/03/13/20 [id number] HELGA YEUNG, Inpatient ABuilding:ME [place] 18 [address] W Encounter 4NRoom: Health 4605Bed: A [facility] Repository 03/07/2018 [id number] Ambulatory [facility] ding:MEDOUTP Repository 03/06/2018/03/08/20 [id number] LISA YEUNG., Inpatient BBuilding:MS [place] Mullins MD. KARLI W Encounter URRoom: Health 0237Bed: A [facility] Repository 02/05/2018/02/06/20 [id number] Emergency [place] ding:ED Repository 12/29/2017/12/30/19 [id number] Ambulatory BMSBuilding: [place] 18 [facility] Repository 12/26/2017/12/27/19 [id number] Ambulatory [facility] [place] [address] [place] [address] ding:OLAB [facility] Repository 12/24/2017 [id number] Ambulatory BBuilding:[facility] Repository 12/22/2017 [id number] Ambulatory BBuilding:[facility] Repository 12/14/2017/12/15/19 [id number] Emergency [address] ding:ED Repository 12/08/2017 [id number] Ambulatory [facility] ding:LABSPEC Repository 12/08/2017/12/09/19 [id number] Ambulatory [facility] [place] [address] [place] [address] ding:OLAB [facility] Repository 12/07/2017/12/08/19 [id number] Ambulatory [facility] [place] [address] [place] [address] ding:OLAB [facility] Repository 11/18/2017/11/19/19 [id number] Ambulatory [facility] [place] [address] [place] [address] ding:RAD [facility] Repository 11/15/2017/11/16/19 [id number] Emergency [place] ding:ED Repository 11/14/2017/11/15/19 [id number] Emergency [address] ding:ED Repository 10/31/2017/05/15 [id number] LISA YEUNG., Ambulatory BBuilding:MS [place] Mullins MD. KARLI Gaspar URRoom: Health 0231Bed: A [facility] Repository 10/31/2017/11/01/19 [id number] Emergency BBuilding:ER [place] [address] [facility] Foundation Repository 10/07/2017/10/08/19 [id number] Ambulatory [address] ding:OLAB [facility] Repository 10/06/2017 [id number] Ambulatory [facility] ding:SL Repository 09/28/2017/09/29/19 [id number] Ambulatory BMSBuilding: [address] Repository 09/23/2017/09/24/19 [id number] Ambulatory [address] ding:OLAB [facility] Repository 09/23/2017 [id number] Ambulatory BMSBuilding: [facility] Repository 09/22/2017 [id number] Ambulatory [facility] ding:PSN Repository 08/11/2017/08/11/19 [id number] Ambulatory [address] ding:[facility] Repository PAYERS PAYERS ENCOUNTER GUARANTOR PAYER SUBSCRIBER SOURCE 07/13/2018 FRANCISCO Ro Primary FRANCISCO Fields [id number] [place] Insurance:MEDICARE LAXDOB: [facility] [id number] Hospital [address]Rhp: (330) Number: Repository [phone] HP) [id number] Date:2018-07-13 07/13/2018 Secondary FRANCISCO Fields Insurance:PHYSICIAN LAXDOB: [facility] [id number] Hospital Number: Repository [id number] Date:6421-35-99TM WENDY KIRSTENNIKO [address]LA: 07/13/2018 Tertiary NOT GIVENUNK [place] Insurance:SELF PAY [facility] Number: Effective Repository Date:2018-07-13 07/13/2018 FRANCISCO Ro Primary FRANCISCO J [place] [id number] [place] Insurance:MEDICARE LAXDOB: [place] PART A [facility] [id number] Hospital [address]Vjt: (330) Number: Repository [phone] () [id number] Date:2018-07-13 07/13/2018 Secondary FRANCISCO J [place] Insurance:PHYSICIAN LAXDOB: [facility] [id number] Hospital Number: Repository [id number] Date:5964-32-57HX [address] [address]IH: 07/13/2018 Tertiary NOT GIVENUNK [place] Insurance:SELF PAY [facility] Number: Effective Repository Date:2018-07-13 07/13/2018 FRANCISCO J Primary FRANCSICO J [place] [id number] [place] Insurance:MEDICARE LAXDOB: [place] PART A [facility] [id number] Hospital [address]Pfr: (330) Number: Repository [phone] () [id number] Date:2018-07-13 07/13/2018 Secondary FRANCISCO J [place] Insurance:PHYSICIAN LAXDOB: [facility] [id number] Hospital Number: Repository [id number] Date:0390-96-14WA [address] [address]UM: 07/13/2018 Tertiary NOT GIVENUNK [place] Insurance:SELF PAY [facility] Number: Effective Repository Date:2018-07-13 07/13/2018 FRANCISCO J Primary FRANCISCO J [place] [id number] [place] Insurance:MEDICARE LAXDOB: [place] PART A [facility] [id number] Hospital [address]Ihi: (330) Number: Repository [phone] () [id number] Date:2018-07-13 07/13/2018 Secondary FRANCISCO J [place] Insurance:PHYSICIAN LAXDOB: [facility] [id number] Hospital Number: Repository [id number] Date:7270-46-56DP [address] [address]YL: 07/13/2018 Tertiary NOT GIVENUNK [place] Insurance:SELF PAY [facility] Number: Effective Repository Date:2018-07-13 07/07/2018 FRANCISCO J Primary NOT GIVENUNK [place] [id number] [place] Insurance:SELF PAY [facility] [address]Mig: (330) Number: Effective Repository [phone] () Date:2018-07-07 07/06/2018 FRANCISCO J Primary NOT GIVENUNK [place] [id number] [place] Insurance:SELF PAY [facility] [address]Mln: (330) Number: Effective Repository [phone] () Date:2018-04-13 06/23/2018 FRANCISCO J Primary FRANCISCO J [place] [id number] [place] Insurance:MEDICARE LAXDOB: [place] PART A [facility] [id number] Hospital [address]Ubj: (330) Number: Repository [phone] () [id number] Date:2018-06-23 06/23/2018 Secondary FRANCISCO J [place] Insurance:PHYSICIAN LAXDOB: Community M[employer]UAL INS COP[facility]icy [id number] Hospital Number: Repository [id number] Date:0710-09-38IY [address] [address]AP: 06/23/2018 Tertiary NOT GIVENUNK [place] Insurance:SELF PAY [facility] Number: Effective Repository Date:2018-06-23 06/22/2018 FRANCISCO J Primary FRANCISCO J [place] [id number] [place] Insurance:MEDICARE LAXDOB: [place] PART A [facility] [id number] Hospital [address]Mjv: (330) Number: Repository [phone] () [id number] Date:2018-06-16 06/22/2018 Secondary FRANCISCO J [place] Insurance:PHYSICIAN LAXDOB: [facility] MUTUAL INS COPolicy [id number] Hospital Number: Repository [id number] Date:9945-70-82RC [address] [address]ZM: 06/22/2018 Tertiary NOT GIVENUNK [place] Insurance:SELF PAY [facility] Number: Effective Repository Date:2018-06-16 06/14/2018 FRANCISCO J Primary FRANCISCO J [place] [id number] [place] Insurance:MEDICARE LAXDOB: [place] PART A [facility] [id number] Hospital [address]Tyj: (330) Number: Repository [phone] () [id number] Date:2018-06-14 06/14/2018 Secondary FRANCISCO J [place] Insurance:PHYSICIAN LAXDOB: [facility] MUTUAL INS [facility] [id number] Hospital Number: Repository [id number] Date:2508-70-54HH [address] [address]DL: 06/14/2018 Tertiary NOT GIVENUNK [place] Insurance:SELF PAY [facility] Number: Effective Repository Date:2018-06-14 05/16/2018 FRANCISCO J Primary FRANCISCO J [place] [id number] [place] Insurance:MEDICARE LAXDOB: [place] PART A [facility] [id number] Hospital [address]Wdb: (330) Number: Repository [phone] () [id number] Date:2018-05-16 05/16/2018 Secondary FRANCISCO J [place] Insurance:PHYSICIAN LAXDOB: [facility] [id number] Hospital Number: Repository [id number] Date:5201-05-57ZB [address] [place] [address]LO: 05/16/2018 Tertiary NOT GIVENUNK [place] Insurance:SELF PAY [facility] Number: Effective Repository Date:2018-05-16 04/13/2018 FRANCISCO J Primary FRANCISCO J [place] [id number] [place] Insurance:MEDICARE LAXDOB: [place] PART A [facility] [id number] Hospital [address]Lem: (330) Number: Repository [phone] () [id number] Date:2017-12-29 04/13/2018 Secondary FRANCISCO J [place] Insurance:PHYSICIAN LAXDOB: Community M[employer] INS [employer]icy [id number] Hospital Number: Repository [id number] Date:3349-15-82DZ [address] [place] [address]WJ: 04/13/2018 Tertiary NOT GIVENUNK [place] Insurance:SELF PAY [facility] Number: Effective Repository Date:2018-04-06 03/30/2018 FRANCISCO J Primary FRANCISCO J [place] [id number] [place] Insurance:MEDICARE LAXDOB: [place] PART A [facility] [id number] Hospital [address]Bnf: (330) Number: Repository [phone] () [id number] Date:2018-03-30 03/30/2018 Secondary FRANCISCO J [place] Insurance:PHYSICIAN LAXDOB: [facility] [id number] Hospital Number: Repository [id number] Date:7479-62-96LW [address] [place] [address]FY: 03/30/2018 Tertiary NOT GIVENUNK [place] Insurance:SELF PAY [facility] Number: Effective Repository Date:2018-03-30 03/08/2018 FRANCISCO J Primary FRANCISCO J [facility] LAXDOB: Insurance:MEDICARE LAXDOB: [facility] [id number] PART APolicy Number: [id number] Repository [place] [id number] [place], [place] Date:2018-03-08 [place] [address]~GMCONRADOI@ [id number] [id number]: (320) Lynda: [facility] [id number] [address] (HP)Tel: (534) ([place]) [phone] [phone] (WP) [address]UF: 03/08/2018 Secondary FRANCISCO J [facility] Insurance:MEDICARE LAXDOB: Foundation PART BPolicy Number: [id number] Repository [id number] [place] Date:2018-03-08 - [place], [place] [id number] [address]Mln: (330) Name:[facility] [phone] Administrators LLCPO (HP)Tel: 000) [address] [address]Ndlgpgnfi, 000-[address] (WP) [place] [address]TB: 03/08/2018 Tertiary FRANCISCO J [facility] Insurance:PHYSICIANS LAXDOB: [facility] Number: [id number] Repository [id number] [place] Date:2018-03-08 - [place], [place] [id number] [address]Hwe: (330) Name:[employer] HELPER [phone] [facility] CenterNIKO Philip ()Tel: 000) [phone]: ([phone] 03/07/2018 FRANCISOC J Primary FRANCISCO J [place] [id number] [place] Insurance:MEDICARE LAXDOB: [place] PART A BPolicy [id number] Hospital [address]Hev: (330) Number: Repository [phone] () [id number] Date:2018-03-03 03/07/2018 Secondary FRANCISCO J [place] Insurance:PHYSICIAN LAXDOB: [facility] [id number] Hospital Number: Repository [id number] Date:[id number] [place] [address]BH: 03/07/2018 Tertiary NOT GIVENUNK [place] Insurance:SELF PAY [facility] Number: Effective Repository Date:2018-03-03 03/06/2018 FRANCISCO J Primary FRANCISCO J [facility] Health LAXDOB: Insurance:MEDICARE LAXDOB: [facility] [id number] PART APolicy Number: [id number] Repository [address] [id number] [address] [place], [place] Date:2018-03-06 - [place] [address]~GMBOBBI@ 2911-03-34Navc 56776Xav: (330) Lynda: Name:[facility] Code [phone] [address] ()Tel: (000) (HP) [phone], [place] 000-0000 (WP) [address]IU: 03/06/2018 Secondary FRANCISCO [facility] Insurance:MEDICARE LAXDOB: [facility] PART BPolicy Number: [id number] Repository [id number] [address] Date:2018-03-06 - [place], [place] 6971-99-42Hcue 19456Bkd: (330) Name:[facility] 68Crys-7333 [facility] ()Tel: (000) [address] [address]Lsvvigpvz, 000-0000 (WP) [place] [address]YK: 03/06/2018 Tertiary FRANCISCOFlorence [facility]elli [facility] Insurance:PHYSICIANS LAXDOB: [facility] Number: [id number] Repository [id number] [address] Date:2018-03-06 - [place] 8747-94-96Jjqp 23392Bma: (330) Name:[facility] [address] [phone] NIKO Curtis ()Tel: (000) [phone]: (WP) [phone] 02/05/2018 FRANCISCO Ro Primary FRANCISCO Fields [id number] [address] Insurance:MEDICARE LAXDOB: [place] PART A olicy [id number] Hospital [address]Uwr: (330) Number: Repository [phone] () [id number] Date:2018-02-05 02/05/2018 Secondary FRANCISCO Fields Insurance[facility]ICIAN [id number] Hospital Number: Repository [id number] Date:2855-41-60BR [address] [place] [address]BT: 02/05/2018 Tertiary NOT GIVENALEM Fields Insurance:SELF PAY [facility] Number: Effective Repository Date:2018-02-05 12/29/2017 FRANCISCO J Primary FRANCISCO Jayjay Fields [id number] [address] Insurance:MEDICARE LAXDOB: [place] PART A BPolicy [id number] [facility] [address]Jnl: (330) Number: Repository [phone] () [id number] Date:2017-09-28 12/29/2017 Secondary FRANCISCO J Loret[place] Insurance:PHYSICIAN LAXDOB: [facility] [id number] Hospital Number: Repository [id number] Date:3887-30-86[address] [place] [address]CL: 12/29/2017 Tertiary NOT GIVENUNK Diamond Insurance:SELF PAY [facility] Number: Effective Repository Date:2017-12-27 12/26/2017 FRANCISCO J Primary FRANCISCO [facility] LAXDOB: Insurance:MEDICARE LAXDOB: [facility] PART BPolicy Number: [id number] Repository [address] [id number] [address] [place], [place] Date:2017-12-26 [place], [place] [address]Shw: ([phone]) 6565-02-48Tebp 539[address]Vzk: (HP) Name:[facility] [id number] [facility] (HP)Tel: 000) [address] [address]Czbxggvfu, 000-0000 (WP) [place] [address]SQ: 12/26/2017 Secondary FRANCISCO [facility] Insurance:PHYSICIANS LAXDOB: [facility] Number: [id number] Repository [id number] [address] Date:2017-12-26 [place] 4651-85-61Hqmg [address]Mew: 330) Name:[employer] [address] [phone] NIKO Curtis ()Tel: [phone]) [phone]: (WP) [phone] 12/24/2017 FRANCISCO J Primary FRANCISCO [facility] LAXDOB: Insurance:MEDICARE LAXDOB: [facility] PART BPolicy Number: [id number] Repository [place] [id number] [address] [place] Date:2017-12-24 [place], [place] [address]Hht: 330 4583-91-21Mxnn 56[address]Qch: (HP) Name[facility] [phone] Administrators LLCPO (HP)Tel: (000) [address] [address]Hhkreanzz, 000-0000 (WP) [place] [address]WL: 12/24/2017 Secondary [facility] Health Insurance:PHYSICIANS [facility]: [id number] Repository [id number] [address] Date:2017-12-24 [place] 4653-55-68Qcyt 21565Trd: (330) Name:[place] [phone] [address] [place], [place] [address]NIKO bahena ()Tel: ([phone]) [phone]: (WP) [phone] 12/22/2017 FRANCISCO J [facility] LAXDOB: Insurance:MEDICARE LAXDOB: [facility] [id number] PART BPolicy Number: [id number] Repository [address] [id number] [address] [place], [place] Date:2017-12-22 [place], [place] [address]Oyw: 330 [id number] 54[address]Amd: (HP) Name:[facility] [phone] Administrators LLCPO (HP)Tel: (000) [address] [address]Xncyvcjyo, 000-0000 (WP) [place] [address]MY: 12/22/2017 Secondary [facility] Health Insurance:PHYSICIANS [facility]: [id number] Repository [id number] [address] Date:2017-12-22 [place] 8918-56-23Hwpd [address]Rgv: (330) Name:[facility] [address] [phone] NIKO Curtis (HP)Tel: ([phone]) [phone]: (WP) [phone] 12/14/2017 FRANCISCO J Primary FRANCISCO J Loretto [id number] [address] Insurance:MEDICARE LAXDOB: [place] PART A BPolicy [id number] Hospital 30[address]Xan: (330) Number: Repository [phone] () [id number] Date:2017-12-14 12/14/2017 Secondary FRANCISCO J [place] Insurance:PHYSICIAN LAXDOB: [facility] [id number] Hospital Number: Repository [id number] Date:6966-03-92[address] [place] [address]XM: 12/14/2017 Tertiary NOT GIVENUNK [place] Insurance:SELF PAY [facility] Number: Effective Repository Date:2017-12-14 12/08/2017 FRANCISCO J Primary NOT GIVENUNK Diamond [id number] [address] Insurance:SELF PAY [facility] [address]Lze: (330) Number: Effective Repository [phone] () Date:2017-12-08 12/08/2017 FRANCISCO J Primary FRANCISCO J [facility] LAXDOB: Insurance:MEDICARE LAXDOB: [facility] [id number] PART BPolicy Number: [id number] Repository [address] [id number] [address] [place], [place] Date:2017-12-08 - [place], [place] [address]Mvt: (426) 2523-64-15Wmnv 549[address]Qgg: () Name:[address]7397 [facility] ()Tel: 000) [address] [address]Tnifmgdrg, 000-0000 (WP) [place] [address]JH: 12/08/2017 Secondary FRANCISCO J [facility] Insurance:PHYSICIANS LAXDOB: [facility] Number: [id number] Repository [id number] [address] Date:2017-12-08 - [place] 0673-88-46Guik [address]Eyz: (330) Name:[employer] Wendy [phone] NIKO Curtis ()Tel: [phone]) [phone]: (WP) [phone] 12/07/2017 FRANCISCO J [facility] LAXDOB: Insurance:MEDICARE LAXDOB: [facility] PART BPolicy Number: [id number] Repository [address] [id number] [address] [place] Date:2017-12-07 - [place], [place] [address]Ora: 330 [id number] 20151Mrc: (HP) Name:[facility] [phone] Administrators LLCPO (HP)Tel: (000) [address] [address]Zxaxuhhgm, 000-0000 (WP) [place] [address]CH: 12/07/2017 Secondary [facility] Insurance:PHYSICIANS [facility]: [id number] Repository [id number] [address] Date:2017-12-07 - [place] 7591-29-55Ciyg 34[address]Wwd: (330) Name:[facility] [phone] [place], [place] [address]NIKO (HP)Tel: ([phone]) [phone]: (WP) [phone] 11/18/2017 FRANCISCO J [facility] LAXDOB: Insurance:MEDICARE LAXDOB: [facility] PART BPolicy Number: [id number] Repository [address] [id number] [address] [place] Date:2017-11-18 - [place], [place] [address]Pic: 330 0926-52-17Qqay 75293Wif: (HP) Name:[facility] [phone] Administrators LLCPO (HP)Tel: (000) [address] [address]Rdcwuvhiv, 000-0000 (WP) [place] [address]NH: 11/18/2017 Secondary [facility] Health Insurance:PHYSICIANS LAXDOB: [facility] MUTUALPolicy Number: [id number] Repository [id number] [address] Date:2017-11-18 - [place] 8649-56-59Crya 90[address]Xte: (330) Name:[employer] Wendy [phone] [place], [place] [address]NIKO bahena ()Tel: ([phone]) [phone]: (wp) [phone] 11/15/2017 FRANCISCO Ro Primary FRANCISCO J Diamond [id number] [address] Insurance:MEDICARE LAXDOB: [place] PART A [facility] [id number] Hospital [address]Jsn: Number: Repository [phone] [id number] () Date:2017-11-15 11/15/2017 Secondary FRANCISCO J [place] Insurance:PHYSICIAN LAXDOB: [facility] MUTUAL INS [facility] [id number] Hospital Number: Repository [id number] Date:9409-57-17JG [address] [place] [address]SG: 11/15/2017 Tertiary NOT GIVENUNK Diamond Insurance:SELF PAY [facility] Number: Effective Repository Date:2017-11-15 11/14/2017 FRANCISCO J Primary FRANCISCO J Loret[place] [id number] [address] Insurance:MEDICARE LAXDOB: [place] PART A [facility] [id number] Hospital 56[address]Ghr: Number: Repository [phone] [id number] () Date:2017-11-14 11/14/2017 Secondary FRANCISCO J [place] Insurance:PHYSICIAN LAXDOB: [facility] M[facility]UAL [facility] [id number] Hospital Number: Repository [id number] Date:0545-25-30QX [address] [address]HG: 11/14/2017 Tertiary NOT GIVENUNK [place] Insurance:SELF PAY [facility] Number: Effective Repository Date:2017-11-14 10/31/2017 FRANCISCO J Primary FRANCISCO J [facility] LAXDOB: Insurance:MEDICARE LAXDOB: [facility] [id number] PART [facility] Number: [id number] Repository [place] [id number] [address] [place], [place] Date:2017-10-31 - [place], [place] [address]Uyt: 330 1666-91-73Bszf 21049Kue: (HP) Name:[facility] [phone] Administrators LLCPO (HP)Tel: (000) [address] [address]Fnromnwsc, 000-0000 (WP) [place] [address]TB: 10/31/2017 Secondary [facility] Health Insurance:PHYSICIANS LAXDOB: [facility] MUTUALPolicy Number: [id number] Repository [id number] [address] Date:2017-10-31 - [place] 9845-41-58Bnwm 27[address]Lwj: (330) Name:[place] [id number] [facility] Center[facility]KO Philip ()Tel: ([phone]) [phone]: (WP) [phone] 10/31/2017 [facility] LAXDOB: Insurance:MEDICARE LAXDOB: [facility] [id number] PART BPolicy Number: [id number] Repository [address] [id number] [address] [place] Date:2017-10-31 - [place], [place] [address]Kva: 330 3121-49-77Wfsr 96[address]Gvr: (HP) Name:[facility] [phone] Administrators LLCPO (HP)Tel: (000) [address] 27[address]Zfnixsben, 000-0000 (WP) [place] [address]CW: 10/31/2017 Secondary [facility] Insurance:PHYSICIANS LAXDOB: [facility] MUTUALPolicy Number: [id number] Repository [id number] [address] Date:2017-10-31 - [place] 0481-75-48Qdch [address]Vly: (330) Name:[facility] [phone] NIKO Curtis (HP)Tel: ([phone]) [phone]: (WP) [phone] 10/07/2017 FRANCISCO Ro Primary FRANCISCO [facility] LAXDOB: Insurance:MEDICARE LAXDOB: [facility] [id number] PART BPolicy Number: [id number] Repository [place] [id number] [place], [place] Date:2017-10-07 - [place], [place] [address]Sqt: (186) 4750-71-97Evid 614[address]Abv: () Name:[facility] 68[facility]60 [facility] ()Tel: 000) [address] [address]Pqbctgzss, 000-0000 (WP) [place] [address]GX: 10/07/2017 Secondary FRANCISCO [facility] Health Insurance:PHYSICIANS LAXDOB: [facility] Number: [id number] Repository [id number] [address] Date:2017-10-07 - [place] 4404-16-23Hekx [address]Jeu: (330) Name:[facility] Box [phone] NIKO Curtis ()Tel: ([phone]) [phone]: () [phone] 10/06/2017 FRANCISCO Ro Primary FRANCISCO Fields [id number] [address] Insurance:MEDICARE LAXDOB: [place] PART A BPolicy [id number] Hospital 6[address]Zfs: Number: Repository [phone] [id number] () Date:2017-09-28 10/06/2017 Secondary FRANCISCO Fields Insurance:PHYSICIAN LAXDOB: [facility] COPolicy [id number] Hospital Number: Repository [id number] Date:3695-12-22[address] [place] [address]AN: 10/06/2017 Tertiary NOT GIVENUNK Diamond Insurance:SELF PAY [facility] Hospital Number: Effective Repository Date:2017-09-28 09/28/2017 FRANCISCO J Primary FRANCISCO J Loretto [id number] [address] Insurance:MEDICARE LAXDOB: [place] PART A BPolicy [id number] Hospital 313[address]Dhw: Number: Repository [phone] [id number] (HP) Date:2017-06-23 09/28/2017 Secondary FRANCISCO Jayjay Diamond Insurance:PHYSICIAN [facility] [id number] Hospital Number: Repository [id number] Date:1706-33-16QI [address] [place] [address]LV: 09/28/2017 Tertiary NOT GIVENUNK Loretto Insurance:SELF PAY [facility] Hospital Number: Effective Repository Date:2017-09-28 09/23/2017 FRANCISCO J Primary FRANCISCO [facility] LAXDOB: Insurance:MEDICARE LAXDOB: [facility] [id number] PART olicy Number: [id number] Repository [place] [id number] [place] Date:2017-09-23 [place], [place] [address]Bgz: (674) 8457-51-93Ruis 07[address]Fob: (HP) Name:[facility] [id number] [facility] ()Tel: 000) [address] [address]Jzwntxmvf, 000-0000 (WP) [place] [address]YJ: 09/23/2017 Secondary [facility] Health Insurance:PHYSICIANS LAXDOB: [facility] Number: [id number] Repository [id number] [address] Date:2017-09-23 - [place] 6942-25-36Zozx 25[address]Vst: (330) Name:[employer] [address] [phone] NIKO Curtis ()Tel: ([phone]) [phone]: (WP) [phone] 09/23/2017 FRANCISCO J Primary FRANCISCO [facility] [id number] [address] Insurance:MEDICARE LAXDOB: [place] PART A olic [id number] Hospital [address]Gaz: Number: Repository [phone] [id number] -7 () Date:2017-06-23 09/23/2017 Secondary FRANCISCO J Diamond Insurance:PHYSICIAN LAXDOB: [facility] [id number] Hospital Number: Repository [id number] Date:6616-84-67MH [address] [address]LD: 09/23/2017 Tertiary NOT GIVENUNK Diamond Insurance:SELF PAY [facility] Number: Effective Repository Date:2017-09-23 09/22/2017 FRANCISCO J Primary FRANCISCO J Diamond [id number] [place] Insurance:MEDICARE LAXDOB: [place] PART A [facility] [id number] Hospital [address]Dek: Number: Repository [phone] [id number] () Date:2017-06-23 09/22/2017 Secondary FRANCISCO J Diamond Insurance:PHYSICIAN LAXDOB: [facility] [id number] Hospital Number: Repository [id number] Date:6506-24-01JZ [address] [address]HL: 09/22/2017 Tertiary NOT GIVENUNK Diamond Insurance:SELF PAY [facility] Number: Effective Repository Date:2017-06-23 08/11/2017 FRANCISCO J Primary FRANCISCO J [facility] LAXDOB: Insurance:MEDICARE LAXDOB: [facility] [id number] PART olicy Number: [id number] Repository [place] [id number] [address] [place], [place] Date:2017-08-11 - [place], [place] [address]Hbh: ([phone]) 5161-94-68Wgbz 539[address]Lzb: () Name:[facility] [phone] Administrators [facility] ()Tel: (433) [address] [address]Vnntnxjlu, 000-0000 () [place] [address]EC: 08/11/2017 Secondary FRANCISCO J [facility] Insurance:PHYSICIANS LAXDOB: [facility] Number: [id number] Repository [id number] 8 [address] Date:2017-08-11 - [place] 8673-10-17Qnci 22[address]Brr: (565) Name:[employer] HEL[employer] Wendy [phone] NIKO Curtis ()Tel: ([phone]) [phone]: ([phone]) [phone]
== END ==
PROVIDERS: Family Provider Family Medicine; PCP Family Medicine; Referring Provider Internal Medicine Critical Care Medicine; Visit Provider Internal Medicine Critical Care Medicine
DX: J96.22 Acute and chronic respiratory failure with hypercapnia (principal)
CPT/HCPCS: 94060; 94726; 94729

== ENCOUNTER 2018-07-13 14:15 | Inpatient (IN) | payer MEDICARE, OTHER, SELFPAY ==
[2018-07-13] VITALS (19 sets, daily range): BP systolic 122–190; BP diastolic 66–99; PULSE 83–133; RESP 20–369; TEMP 36.8–37.1; O2SAT 95–100; BMI 22.9
--- NOTE | 2018-07-13 14:26 | RAD_ITS ---
STUDY: X-RAY CHEST REASON FOR EXAM: Female, 68 years old. Stroke symptoms, seizure. TECHNIQUE: Single AP portable upright view of the chest. COMPARISON: AP and lateral upright chest x-ray May 16, 2018. FINDINGS: The right chest wall MediPort is again noted, its tip in the superior vena cava. The lungs are poorly expanded and there is bibasilar crowding. No lobar consolidation.. There is no demonstrated pleural abnormality. Normal size heart. Normal mediastinum and brandon. Normal visualized pulmonary arteries. Normal visualized aortic arch and descending thoracic aorta. Normal visualized thoracic spine. Normal visualized ribs, clavicles, and shoulders. There is no demonstrated abnormality of the visualized soft tissue structures of the upper abdomen. RAD/Chest 1 View (Portable) IMPRESSION: Poor inspiratory effort with bibasilar crowding. No acute consolidating infiltrate or pulmonary edema. Electronically Signed: Justino Hale MD at 15:05 EST , Service support ,
--- NOTE | 2018-07-13 14:26 | EKG12_ITS ---
Test Reason : STROKE Blood Pressure : / mmHG Vent. Rate : 110 BPM Atrial Rate : 110 BPM P-R Int : 140 ms QRS Dur : 076 ms QT Int : 350 ms P-R-T Axes : 067 005 066 degrees QTc Int : 473 ms Sinus tachycardia Possible Left atrial enlargement Inferior infarct , age undetermined Abnormal ECG Confirmed by NAZ YEUNG, HEIDY ([id number]), editorial manager MADELEINE SEXTON ([id number]) on 07/18/2018 2:59:33 PM Referred By: Shayy Patel Confirmed By:HEIDY CHILDS MD
--- NOTE | 2018-07-13 14:29 | CT_ITS ---
STUDY: CT BRAIN WITHOUT CONTRAST REASON FOR EXAM: Female, 68 years old. Stroke, seizure. RADIATION DOSAGE (If Supplied By Facility): CTDIvol = ( 44.99 ) mGy, DLP = ( 815.79 ) mGycm TECHNIQUE: Transaxial CT imaging of the brain was performed without administration of intravenous contrast material. Individualized dose optimization techniques were used for this CT. COMPARISON: Noncontrast CT brain May 16, 2018. FINDINGS: There is an indwelling left-sided cochlear implant. This produces mild artifact at the left wncgqrsc-dzvdcbpj-rakcbrpmu region. Prior partial left mastoidectomy also again noted There is stable mild central cerebral atrophy with mild ventricular dilatation. There are areas of decreased attenuation within the white matter tracts of the supratentorial brain, consistent with microvascular disease changes. 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 Normal basal ganglia and thalami. Normal brainstem. Normal cerebellum. There is no intracranial hemorrhage. There are no findings of an acute ischemic infarction. Normal visualized paranasal sinuses. CT/Brain/Head without Contrast IMPRESSION: 1. Chronic involutional and ischemic changes of the brain, as described. No acute intracranial pathology. 2. Changes of prior partial left mastoidectomy and cochlear implant again noted. N.B. : The above information has been verbally conveyed by Justino Hale MD to Morelia Casas AA, on 07/13/2018 14:54:51 (ET). Electronically Signed: Justino Hale MD at 14:56 EST , Service support ,
[2018-07-13] MEDS: LORazepam 2 MG/ML Syringe IV (14:30)
--- NOTE | 2018-07-13 14:32 | ED.DCSUM_ITS ---
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 Per the she was in her usual state of health today she was going to see her philanthropy officer for routine follow-up visit for COPD she complained him that she had a headache which is not unusual for her and she wanted to go see the emergency department if her headache was not improved by the time the visit with pulmonology was over, the reports that then she began having seizures where she would suddenly look to the left and had generalized tonic-clonic activity of all 4 extremities and he brought her to the emergency department, she was not seen by pulmonology, she had 3 seizures the last for a few minutes she is not known to have chronic seizures since she recovered from the syndrome above in 2017, she was seen at that time at [facility] neurology Physical Examination: [] 190/90 Actively seizing she has a fixed gaze to the left she has tonic-clonic jerking activity of all 4 extremities the seizure lasted for a few minutes, she has a port in her right chest which were accessing her airways intact, her lungs sound clear the heart tones are normal the abdomen soft nontender and her extremities show no obvious signs of trauma she her eyes are open she appears to be scanning the room but she does not respond to verbal or painful stimuli and again her airway is intact as are her hemodynamics Test Results: [] Emergency Department Course and Treatment: [] The patient's EKG shows a sinus rhythm her screening labs are unremarkable, the head CT per radiology shows old changes nothing acute reevaluation she remained stable here in the department there is been no further seizure she has had 2 of Ativan 750 g of Keppra airways intact vital signs have been within normal range discussed with the the need for admission he agrees to admission at [facility] spoke with the hospitalist will arrange for admission to the ICU for further management all the above her blood pressure now is 150/80 without specific therapy Treatment Plan: [] Disposition: [] Admits stable Impression: [] Multiple seizures, history of prior stroke, COPD, PRESS syndrome, migraine headaches This note was generated with [employer] software. It may contain incorrect words, spelling, and punctuation that were not noted in review of the chart prior to signing ED Disposition - Plan for ED Patient: Chief Complaint: Neuro S/Sx Referrals: Vin Baca DO [Primary Care Provider] -
[2018-07-13 14:40] LABS: Absolute Lymphocyte Count 1.41 X10^3/ul (0.83-4.51); Absolute Neutrophil Count 10.2 X10^3/uL (2.0-7.7); Basophil# 0.04 X10^3/uL; Basophil% 0.3 % (0-1); Eosinophil# 0.09 X10^3/uL; Eosinophils% 0.7 % (0-5); Hematocrit 45.1 % (37-47); Hemoglobin 14.2 g/dl (12.0-15.0); Lymphocyte # 1.41 X10^3/ul (4.0); Lymphocyte % 10.8 % (19-41); Mean Corp Hgb Conc 31.5 g/gl (32-36); Mean Corpuscular Hgb 31.6 pg (27.0-32.0); Mean Corpuscular Volume 100.2 fL (81-99); Mean Platelet Vol. 9.7 fl (6.2-12.0); Monocyte# 1.23 X10^3/uL; Monocyte% 9.4 % (0-10); Neutrophil % 77.9 % (47-70); Platelet Count 248 K/mm3 (150-450); RBC Distribution Width CV 15.3 % (11.6-14.6); RBC Distribution Width SD 56.1 fl (35.1-43.9); White Blood Count 13.1 K/mm3 (4.4-11.0)
[2018-07-13 14:42] LABS: POSITIVE COUNT NO; POSITIVE DIFFERENTIAL NO; POSITIVE MORPHOLOGY NO
--- NOTE | 2018-07-13 14:50 | CM.ED ---
SOCIAL WORK NOTE THIS WORKER RESPONDED TO STROKE ALERT. PT'S PRESENT WITH PT IN ROOM. MET WITH AT BEDSIDE. INTRODUCED THIS WORKER'S ROLE. STATES HAD BEEN WITH PT ALL MORNING AND HAD FOLLOW UP DOCTOR'S APPOINTMENT. STATES PT WAS ACTING FUNNY, PUTTING SHOES ON THE WRONG FOOT AND HAD COMPLAINED OF SEVERE HEADACHE. REPORTS PT HAS HX OF MIGRAINES. STATES PT HAD EPISODE IN THE CAR AND SLUMMED OVER. PULLED OVER IN PARKING LOT AND CALLED THE [facility]. STATES HAS BEEN WORRIED ABOUT PT AND HAS THOUGHT ABOUT CONTACTING EAP TO GET IN TO SPEAK WITH SOMEONE OR ESTABLISH SELF WITH A SUPPORT GROUP. EMOTIONAL SUPPORT AND ENCOURAGEMENT PROVIDED TO TO FOLLOW UP WITH SERVICES. DENIES ANY OTHER NEEDS OR QUESTIONS/CONCERNS AT THIS TIME. INFORMED THIS WORKER TO REMAIN AVAILABLE FOR ANY FURTHER NEEDS. JOSUÉ VARGAS, ROTARY SHEAR CUTTER, LAWYER PROBATE.
[2018-07-13 14:52] LABS: Anion Gap 10 (5-15); BUN 19 mg/dL (7-18); BUN/Creat Ratio 17.9 RATIO (10-20); Calcium,Total 8.4 mg/dL (8.5-10.1); Chloride 110 mmol/L (98-107); Creatinine, Serum 1.06 mg/dL (0.55-1.02); EST Glomerular Filtration Rate 55 mL/min (>60); Est Glom Filt Rate - Afr Amer 67 mL/min (>60); Estimated Creatinine Clearance 52.66 ml/min; Glucose 130 mg/dL (74-106); Potassium 3.7 mmol/L (3.5-5.1); Sodium Level 142 mmol/L (136-145)
--- NOTE | 2018-07-13 14:53 | ED.RN ---
[PT HAD SEIZURE DURING ED TRIAGE.
--- NOTE | 2018-07-13 14:55 | ED.RN ---
PT WAS STARING TO THE LT UPON ARRIVAL. PT WAS BEEN SNORING SEEN ATIVAN GIVEN.
--- NOTE | 2018-07-13 15:08 | ED.RN ---
IV FROM EMS REMOVED. IV WOULD NOT FLUSH.
--- NOTE | 2018-07-13 15:18 | ED.RN ---
PT REMAINS RESTFUL WITH EYES CLOSED FROM MEDICATIONS. NO MD OSMIN STATED IT WAS A SEIZURE.
[2018-07-13 15:28] LABS: Bacteria 0 SEEN /hpf (None Seen); Mucous, Urine 0 SEEN /hpf (<or=2+)
[2018-07-13 15:43] LABS: Color, Urine Yellow (Yellow); Glucose, Dipstick Normal (Normal); Ketone-Dipstick Negative (Negative); Leukocyte Esterase-Dipstick 25 /ul (Negative); Nitrite-Dipstick Negative (Negative); Occult Blood-Urine 25 /ul (Negative); Protein-Dipstick 100 mg/dl (Negative); Urine Bilirubin Dipstick Negative (Negative); Urine Clarity Clear (Clear); Urine Urobilinogen Normal (Normal)
[2018-07-13] MEDS: Ipratropium/Albuterol Sulfate 3 ML AMPUL.NEB INHALATION (15:50)
[2018-07-13 15:54] LABS: Red Blood Cells-Urine 0-5 SEEN /hpf (0-5); Squamous Epithelial Cells - UA 0-5 SEEN /hpf (5-10); White Blood Cells 0-5 SEEN /hpf (0-5)
[2018-07-13 16:16] LABS: Base Excess -3 mmol/L (-2 to +2); Bicarbonate 22.8 mmol/L (22-26); Blood Gas Specimen Type ART; O2 Delivery Device Nasal Can; PO2 66 mmHG (75-100); SITE R Radial; SO2 91 % (95-99); Time Given 1610; Total Carbon Dioxide 24 mmol/L; pCO2 45.3 mmHg (35-45); pH 7.31 (7.35-7.45)
--- NOTE | 2018-07-13 16:28 | HP.PCM_ITS ---
Problem List (1) Tobacco abuse Status: Chronic (2) Depression Status: Chronic Qualifiers: Depression Type: major depressive disorder Major depression recurrence: recurrent Active/Remission status: currently active Major depression episode severity: moderate Qualified Code(s): F33.1 - Major depressive disorder, recurrent, moderate (3) HTN (hypertension) Status: Chronic Qualifiers: Hypertension type: essential hypertension (4) COPD (chronic obstructive pulmonary disease) Status: Chronic Qualifiers: COPD type: unspecified COPD Qualified Code(s): J44.9 - Chronic obstructive pulmonary disease, unspecified; J44.9 - Chronic obstructive pulmonary disease, unspecified; J44.9 - Chronic obstructive pulmonary disease, unspecified; J44.9 - Chronic obstructive pulmonary disease, unspecified (5) Hypothyroidism Status: Chronic Qualifiers: Hypothyroidism type: unspecified Qualified Code(s): E03.9 - Hypothyroidism, unspecified (6) Pulmonary fibrosis Status: Chronic History of Present Illness Date of Admission: 07/13/18 Chief Complaint: Seizures - 1 day The patient is a 68 year old F with past medical history of COPD, PRESS syndrome, seizure disorder, last had a seizure in 2017, history of chronic migraines, COPD, on 2 L of oxygen at night, RENNY on CPAP who was going to see her occupational medicine officer on her 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 According to the , patient has been complaining of abdominal discomfort and has been constipated. Patient told him that she had vomited twice this morning. No other sick contacts or runny nose or chest pain or shortness of breath. States that patient has been on multiple qewb-caw-jjbhyln medications and is concerned that she has been taking too many pain medications. At time of being examined, patient was lethargic, was given Ativan and Keppra a little while ago. Also the ED show temperature of 98.3F, heart rate 93, blood pressure 190/99, respiratory rate was 36, SPO2 of 96% on room air. Her admitting blood work was remarkable for WBC count of 13.1, hemoglobin 14.2, platelet count 248. BMP shows sodium 142, does not 3.7, chloride 110, bicarbonate 20, BUN 19, creatinine 1.06, troponin was 0.015, UA was unremarkable. Chest x-ray shows no acute cardiopulmonary infiltrate, CT of the head shows chronic inflammatory changes. Past Medical History Past Medical History (Chronic Problems): Chronic Problems (Last Reviewed 04/13/18 @ 06:39 by Afua Friedman) Tobacco abuse (Chronic) RENNY (obstructive sleep apnea) (Chronic) Mild diastolic dysfunction (Chronic) Depression (Chronic) Restless leg (Chronic) HTN (hypertension) (Chronic) Presbycusis of both ears (Chronic) Adrenal insufficiency (Chronic) COPD (chronic obstructive pulmonary disease) (Chronic) Hypothyroidism (Chronic) Pulmonary fibrosis (Chronic) Medical History: Medical History (Last Reviewed 04/13/18 @ 06:39 by Afua Friedman) Encephalopathy (Acute) G93.40 Leukocytosis (Acute) D72.829 Hypotension (Acute) I95.9 Decreased level of consciousness (Acute) R40.4 Respiratory failure with hypercapnia (Acute) J96.92 MRSA pneumonia (Acute) J15.212 Acute delirium (Acute) R41.0 Headache (Acute) R51 RENNY (obstructive sleep apnea) (Chronic) G47.33 Mild diastolic dysfunction (Chronic) I51.9 Depression (Chronic) F32.9 Restless leg (Chronic) HTN (hypertension) (Chronic) I10 Presbycusis of both ears (Chronic) H91.13 Adrenal insufficiency (Chronic) E27.40 COPD (chronic obstructive pulmonary disease) (Chronic) J44.9 Hypothyroidism (Chronic) E03.9 Pulmonary fibrosis (Chronic) J84.10 COPD with acute exacerbation J44.1 Gallstones K80.20 Septic shock A41.9, R65.21 UTI (urinary tract infection) N39.0 Anxiety F41.9 Bronchitis J40 Carpal tunnel syndrome G56.00 Cataract H26.9 Chronic back pain M54.9, G89.29 Migraine G43.909 Osteopenia M85.80 Solitary pulmonary nodule R91.1 Stage 2 moderate COPD by GOLD classification J44.9 Tobacco abuse Z72.0 Acute respiratory failure J96.00 H/O: hysterectomy Z98.890, Z90.710 Hypersomnia G47.10 Allergies Sulfa (Sulfonamide Antibiotics) Adverse Reaction (Intermediate, Verified 07/13/18 14:52) Other - Messes with blood counts prochlorperazine edisylate [From Compazine] Adverse Reaction (Mild, Verified 07/13/18 14:52) Other - Restless legs prochlorperazine maleate [From Compazine] Adverse Reaction (Mild, Verified 07/13/18 14:52) Other - Restless legs Home Medications: Ambulatory Orders Medication Instructions Recorded Pantoprazole Sodium [Protonix] 40 mg PO DAILY 08/23/16 albuterol sulfate HFA 90 2 puff INHALATION Q4H PRN g 06/16/17 mcg/actuation aerosol inhaler ipratropium-albuterol 0.5 mg-3 3 ml INHALATION Q4H PRN ml 06/16/17 mg(2.5 mg base)/3 mL nebulization soln budesonide-formoterol HFA 160 2 inh INHALATION Q12H #10.2 g 09/28/17 mcg-4.5 mcg/actuation aerosol inhaler Divalproex Sodium [Depakote] 250 mg PO DAILY 12/14/17 Risperidone [Risperdal] 0.5 mg PO DAILY 12/14/17 Ropinirole HCl [Requip] 0.5 - 1 mg PO QHS 12/14/17 Sertraline HCl [Zoloft] 50 mg PO DAILY 12/14/17 melatonin 10 mg capsule 20 mg PO QHS 12/29/17 Rizatriptan Benzoate [Maxalt] 10 mg PO .X1 PRN PRN 02/05/18 tiotropium bromide 2.5 2 puff INHALATION DAILY #4 g 04/13/18 mcg/actuation mist for inhalation Aspirin/Acetaminophen/Caffeine 2 tab PO PRN PRN 05/16/18 [Excedrin Migraine Caplet] Divalproex Sodium 500 mg PO BID 05/16/18 Levothyroxine Sodium [Synthroid] 150 mcg PO DAILY 05/16/18 Multivit-Min/Iron/Folic/Lutein 1 tab PO DAILY 05/16/18 [Centrum Silver Women Tablet] Naproxen Sodium [Aleve] 220 mg PO PRN PRN 05/16/18 Cyclobenzaprine HCl 10 mg PO BID PRN PRN 07/13/18 Surgical History: Surgical History (Last Reviewed 04/13/18 @ 06:39 by Afua Friedman) Cochlear implant in place Z96.21 Dr Andrade 2014 H/O adenoidectomy Z98.890, Z90.89 History of cataract surgery Z98.49 History of cholecystectomy Z98.890, Z90.49 History of lung biopsy Z98.890 Hx of appendectomy Z98.890, Z90.49 Hx of left knee surgery Z98.890 joint lipoma removal vocal nodules removed Surgical History: appendectomy, cholecystectomy, hysterectomy, total hip arthroplasty - Right, - - thyroidectomy and BL intraocular lens implants,cochear implant Psychiatric History: Anxiety, Depression, - - Suspected narcotic dependence. RADIO INTERFERENCE EXPERT History: No pertinent RADIO INTERFERENCE EXPERT history Smoking Status: Current every day smoker Tobacco Use: Cigarettes Alcohol: Occasional - cocktail drink Drugs: None - *Family History Maternal Family History: Family History (Last Reviewed 04/13/18 @ 06:39 by Afua Friedman) Mother Hypertension CVA (cerebral vascular accident) Father CVA (cerebral vascular accident) Hypertension Sister Colon cancer Grandfather Hypertension Heart disease History Items: Heart Disease, Stroke Paternal Family History: Family History (Last Reviewed 04/13/18 @ 06:39 by Afua Friedman) Mother Hypertension CVA (cerebral vascular accident) Father CVA (cerebral vascular accident) Hypertension Sister Colon cancer Grandfather Hypertension Heart disease History Items: Heart Disease, Stroke Sibling Family History: Family History (Last Reviewed 04/13/18 @ 06:39 by Afua Friedman) Mother Hypertension CVA (cerebral vascular accident) Father CVA (cerebral vascular accident) Hypertension Sister Colon cancer Grandfather Hypertension Heart disease History Items: - - sister with colon cancer Review of Systems Unable to obtain accurate/complete ROS d/t: Patient was very lethargic at exam; sedated with Ativan, Keppra VTE Information - Inpt Only VTE Present on Admission: No VTE Pharm Prophylaxis ordered?: Yes - Physical Exam General: Alert, Oriented x3, Cooperative, No apparent distress HEENT: Atraumatic, PERRLA, EOMI, Normocephalic Oral: Moist Mucosa Neck: Supple, No JVD, Negative Carotid Bruits Lungs: Clear to auscultation, Normal air movement Cardiovascular: Regular rate, Regular Rhythm, Normal S1, Normal S2, No murmurs Abdomen: Bowel Sounds Present, Soft, Non Tender, Non-Distended, No Hepato- splenomegaly Extremities: No edema Skin: No rashes, No breakdown Musculoskeletal: No Tenderness to Palpation of Joints or Extremities Lymphatic: No Cervical, Supraclavicular, or Inguinal Adenopathy Neurological: Cranial nerves II-XII grossly intact, Neuro grossly intact Psych/Mental Status: Normal Affect, Appropriate Vital Signs Temp Pulse Resp BP Pulse Ox 98.3 F 96 27 H 157/89 H 96 07/13/18 14:17 07/13/18 16:04 07/13/18 16:04 07/13/18 16:04 07/13/18 16:04 Oxygen Flow Rate (L/min) 2 Oxygen Delivery Method Nasal Cannula Weight: 68.5 kg Body Mass Index (BMI) 22.9 Finger Stick Blood Glucose 108 Laboratory Tests Past 24 Hrs 07/13/18 07/13/18 07/13/18 14:30 14:30 15:20 WBC 13.1 H RBC 4.50 Hgb 14.2 Hct 45.1 MCV 100.2 H MCH 31.6 MCHC 31.5 L RDW 15.3 H RDW Differential 56.1 H Plt Count 248 MPV 9.7 Immature Gran % (Auto) 0.900 Neut % (Auto) 77.9 H Lymph % (Auto) 10.8 L Bristol % (Auto) 9.4 Eos % (Auto) 0.7 Baso % (Auto) 0.3 Absolute Neuts (auto) 10.2 H Absolute Lymphs (auto) 1.41 Total Counted Not Reportable Specimen Type Sample Site pH Bicarbonate Actual POC Total CO2 Base Excess O2 Saturation ABG pCO2 ABG pO2 O2 Delivery Device Liter Flow Blood Gas Notified Whom Blood Gas Notified Time Sodium 142 Potassium 3.7 Chloride 110 H Carbon Dioxide 22.0 Anion Gap 10 BUN 19 H Creatinine 1.06 H Estim Creat Clear Calc 52.66 Est GFR (MDRD) Af Amer 67 Est GFR (MDRD) Non-Af 55 L BUN/Creatinine Ratio 17.9 Glucose 130 H Calcium 8.4 L Troponin I < 0.015 Urine Color Yellow Urine Clarity Clear Urine pH 6.0 Ur Specific Huntley 1.020 Urine Protein 100 H Urine Glucose (UA) Normal Urine Ketones Negative Urine Occult Blood 25 H Urine Nitrite Negative Urine Bilirubin Negative Urine Urobilinogen Normal Ur Leukocyte Esterase 25 H Urine RBC 0-5 SEEN Urine WBC 0-5 SEEN Ur Squamous Epith Cells 0-5 SEEN Urine Bacteria 0 SEEN Urine Mucus 0 SEEN 07/13/18 16:12 WBC RBC Hgb Hct MCV MCH MCHC RDW RDW Differential Plt Count MPV Immature Gran % (Auto) Neut % (Auto) Lymph % (Auto) Bristol % (Auto) Eos % (Auto) Baso % (Auto) Absolute Neuts (auto) Absolute Lymphs (auto) Total Counted Specimen Type ART Sample Site R Radial pH 7.31 L Bicarbonate Actual 22.8 POC Total CO2 24 Base Excess -3 L O2 Saturation 91 L ABG pCO2 45.3 H ABG pO2 66 L O2 Delivery Device Nasal Can Liter Flow 2.0 Blood Gas Notified Whom ED Blood Gas Notified Time 1610 Sodium Potassium Chloride Carbon Dioxide Anion Gap BUN Creatinine Estim Creat Clear Calc Est GFR (MDRD) Af Amer Est GFR (MDRD) Non-Af BUN/Creatinine Ratio Glucose Calcium Troponin I Urine Color Urine Clarity Urine pH Ur Specific Huntley Urine Protein Urine Glucose (UA) Urine Ketones Urine Occult Blood Urine Nitrite Urine Bilirubin Urine Urobilinogen Ur Leukocyte Esterase Urine RBC Urine WBC Ur Squamous Epith Cells Urine Bacteria Urine Mucus Assessment/Plan All Active Problems (Last Reviewed 04/13/18 @ 06:39 by Afua Friedman) Encephalopathy (Acute) Leukocytosis (Acute) Hypotension (Acute) Decreased level of consciousness (Acute) Respiratory failure with hypercapnia (Acute) MRSA pneumonia (Acute) Acute delirium (Acute) Headache (Acute) Gram-negative pneumonia (Resolved) Septic shock (Resolved) Tobacco user (Resolved) 68 year old F with past medical history of COPD, PRESS syndrome, seizure disorder, last had a seizure in 2017, history of chronic migraines, nocturia hypoxia on 2 L of oxygen at night, RENNY on CPAP who was going to see her occupational medicine officer on her 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 1. Breakthrough seizures, history of seizures, on Depakote, stable vitals, given Ativan and Keppra, CT scan of head is negative. Plan: Admit to ICU, seizure protocol, given IV keppra 1000mg x 1, Keppra 500mg IV BID, NPO on account of lethargy 2. Hypothyroidism, levothyroxine and on hold on account of n.p.o. status 3. COPD, continue with breathing treatments as needed 4. Nocturnal hypoxia, on 2 L of oxygen at night 5. RENNY on CPap, 10mmHg 6. Dehydration, elevation in creatinine, will start on gentle IV fluids, lab in a.m. 7. PRESS syndrome, h/o CVA, ff with neurologist in [place] 8. DVT PPx- Heparin SC 9. GI PPx- Famotidine 10. Code status: Full code; is the HCPOA. Code Visit Inpatient E&M: 84646 Init Hosp L3
[2018-07-13] MEDS: 0.9% Normal Saline 1,000 ML 75 ML IV (17:21)
[2018-07-13] MEDS: levETIRAcetam IV 100 ML 400 MG IV (21:18)
[2018-07-13] MEDS: Heparin Injection (Vial) 5,000 UNIT/ML VIAL 5000 UNIT SC (21:19)
[2018-07-13 23:41] LABS: Bedside Glucose 86 mg/dL (70-110)
[2018-07-14] VITALS (18 sets, daily range): BP systolic 139–170; BP diastolic 45–87; PULSE 71–105; RESP 18–32; TEMP 36.6–37.6; O2SAT 93–100
[2018-07-14] MEDS: 0.9% Normal Saline 1,000 ML 75 ML IV (04:07)
[2018-07-14 04:54] LABS: Absolute Lymphocyte Count 1.69 X10^3/ul (0.83-4.51); Absolute Neutrophil Count 9.5 X10^3/uL (2.0-7.7); Basophil# 0.02 X10^3/uL; Basophil% 0.2 % (0-1); Eosinophil# 0.09 X10^3/uL; Eosinophils% 0.8 % (0-5); Hematocrit 42.5 % (37-47); Hemoglobin 13.4 g/dl (12.0-15.0); Lymphocyte # 1.69 X10^3/ul (4.0); Lymphocyte % 14.5 % (19-41); Mean Corp Hgb Conc 31.5 g/gl (32-36); Mean Corpuscular Volume 98.4 fL (81-99); Mean Platelet Vol. 9.6 fl (6.2-12.0); Monocyte# 0.34 X10^3/uL; Monocyte% 2.9 % (0-10); Neutrophil # 9.52 X10^3/uL (2.7-7.7); Neutrophil % 81.3 % (47-70); Platelet Count 215 K/mm3 (150-450); RBC Distribution Width CV 15.2 % (11.6-14.6); RBC Distribution Width SD 55.4 fl (35.1-43.9); Red Blood Count 4.32 M/mm3 (4.2-5.4); White Blood Count 11.7 K/mm3 (4.4-11.0)
[2018-07-14 05:05] LABS: Anion Gap 7 (5-15); BUN 14 mg/dL (7-18); BUN/Creat Ratio 20.1 RATIO (10-20); Chloride 114 mmol/L (98-107); EST Glomerular Filtration Rate 90 mL/min (>60); Est Glom Filt Rate - Afr Amer 108 mL/min (>60); Estimated Creatinine Clearance 55.82 ml/min; Glucose 86 mg/dL (74-106); Potassium 3.8 mmol/L (3.5-5.1); Sodium Level 146 mmol/L (136-145)
[2018-07-14 05:28] LABS: POSITIVE COUNT NO; POSITIVE DIFFERENTIAL NO; POSITIVE MORPHOLOGY NO
[2018-07-14] MEDS: Heparin Injection (Vial) 5,000 UNIT/ML VIAL 5000 UNIT SC ×3 (06:13→20:50)
--- NOTE | 2018-07-14 07:36 | PN_ITS ---
Subjective: Patient was seen and examined. No acute events overnight. No more seizures. Denies any headaches, dizziness or SOB. Vitals have been stable. Vitals/I&O's: Vital Signs Temp Pulse Resp BP Pulse Ox 99.5 F H 92 20 H 150/87 H 96 07/14/18 07:00 07/14/18 07:00 07/14/18 07:00 07/14/18 07:00 07/14/18 07:00 Oxygen Flow Rate (L/min) 2 Oxygen Delivery Method Nasal Cannula Weight: 67.6 kg Body Mass Index (BMI) 22.9 Finger Stick Blood Glucose 108 Intake and Output for Last 24 Hours 07/12/18 07/13/18 07/14/18 23:59 23:59 23:59 Intake Total 735 / 735 490 / 490 Output Total 450 / 450 500 / 500 Balance 285 / 285 -10 / -10 General: Alert, Oriented x3, Cooperative, No apparent distress, - - slightly drowsy HEENT: Atraumatic, PERRLA, EOMI, Normocephalic Oral: Moist Mucosa Neck: Supple, No JVD, Negative Carotid Bruits Lungs: Clear to auscultation, Normal air movement Cardiovascular: Regular rate, Regular Rhythm, Normal S1, Normal S2, No murmurs Abdomen: Bowel Sounds Present, Soft, Non Tender, Non-Distended, No Hepato- splenomegaly Extremities: No edema Skin: No rashes, No breakdown Musculoskeletal: No Tenderness to Palpation of Joints or Extremities Lymphatic: No Cervical, Supraclavicular, or Inguinal Adenopathy Neurological: Cranial nerves II-XII grossly intact, Neuro grossly intact Psych/Mental Status: Normal Affect, Appropriate Laboratory Results 07/13/18 14:30: WBC 13.1 H, RBC 4.50, Hgb 14.2, Hct 45.1, MCV 100.2 H, MCH 31.6, MCHC 31.5 L, RDW 15.3 H, RDW Differential 56.1 H, Plt Count 248, MPV 9.7, Immature Gran % (Auto) 0.900, Neut % (Auto) 77.9 H, Lymph % (Auto) 10.8 L, [place] % (Auto) 9.4, Eos % (Auto) 0.7, Baso % (Auto) 0.3, Absolute Neuts (auto) 10.2 H, Absolute Lymphs (auto) 1.41, Total Counted Not Reportable 07/13/18 14:30: Sodium 142, Potassium 3.7, Chloride 110 H, Carbon Dioxide 22.0, Anion Gap 10, BUN 19 H, Creatinine 1.06 H, Estim Creat Clear Calc 52.66, Est GFR (MDRD) Af Amer 67, Est GFR (MDRD) Non-Af 55 L, BUN/Creatinine Ratio 17.9, G lucose 130 H, Calcium 8.4 L, Troponin I < 0.015 07/13/18 15:20: Urine Color Yellow, Urine Clarity Clear, Urine pH 6.0, Ur Specific [place] 1.020, Urine Protein 100 H, Urine Glucose (UA) Normal, Urine Ketones Negative, Urine Occult Blood 25 H, Urine Nitrite Negative, Urine Bilirubin Negative, Urine Urobilinogen Normal, Ur Leukocyte Esterase 25 H, Urine RBC 0-5 SEEN, Urine WBC 0-5 SEEN, Ur Squamous Epith Cells 0-5 SEEN, Urine Bacteria 0 SEEN, Urine Mucus 0 SEEN 07/13/18 16:12: Specimen Type ART, Sample Site R Radial, pH 7.31 L, Bicarbonate Actual 22.8, POC Total CO2 24, Base Excess -3 L, O2 Saturation 91 L, ABG pCO2 45.3 H, ABG pO2 66 L, O2 Delivery Device Nasal Can, Liter Flow 2.0, Blood Gas Notified Whom ED MD, Blood Gas Notified Time 1610 07/13/18 23:34: POC Glucose 86 07/14/18 04:35: WBC 11.7 H, RBC 4.32, Hgb 13.4, Hct 42.5, MCV 98.4, MCH 31.0, MCHC 31.5 L, RDW 15.2 H, RDW Differential 55.4 H, Plt Count 215, MPV 9.6, Immature Gran % (Auto) 0.300, Neut % (Auto) 81.3 H, Lymph % (Auto) 14.5 L, [place] % (Auto) 2.9, Eos % (Auto) 0.8, Baso % (Auto) 0.2, Absolute Neuts (auto) 9.5 H, Absolute Lymphs (auto) 1.69, Total Counted Not Reportable 07/14/18 04:35: Sodium 146 H, Potassium 3.8, Chloride 114 H, Carbon Dioxide 25.0, Anion Gap 7, BUN 14, Creatinine 0.70, Estim Creat Clear Calc 55.82, Est GFR (MDRD) Af Amer 108, Est GFR (MDRD) Non-Af 90, BUN/Creatinine Ratio 20.1 H, Glucose 86, Calcium 8.0 L Current Medications Bisacodyl (Dulcolax) 5 mg PO DAILY PRN PRN PRN Reason: Constipation Heparin Sodium (Porcine) (Heparin Na) 5,000 unit SC Q8 PENDING SALE TO [facility] Last Admin: 07/14/18 06:13 Dose: 5,000 unit Sodium Chloride () 1,000 mls @ 75 mls/hr IV .[id number] PENDING SALE TO [facility] Last Admin: 07/14/18 04:07 Dose: 75 mls/hr Famotidine 20 mg/ Sodium (Chloride) 10 mls @ 300 mls/hr IV Q12 PENDING SALE TO [facility] Last Admin: 07/13/18 21:18 Dose: 300 mls/hr Levetiracetam (Keppra Iv) 100 mls @ 400 mls/hr IV Q12 [facility]END[facility] S[facility] TO [facility] Last Admin: 07/13/18 21:18 Dose: 400 mls/hr Lorazepam (Ativan) 2 mg IV PRN PRN PRN Reason: SEIZURES Magnesium Hydroxide (Milk Of Magnesia) 30 ml PO DAILY PRN PRN PRN Reason: Constipation Nicotine (Nicoderm Cq (Pbkc)) 21 mg TRANSDERM. DAILY [facility]END[facility]ALE TO [facility] Ondansetron HCl (Zofran) 4 mg IV Q8H PRN PRN PRN Reason: NAUSEA Psyllium Hydrophilic Mucilloid (Metamucil) 1 packet PO DAILY PRN PRN PRN Reason: CONSTIPATION Medical Necessity - Tobacco Use Smoking Status: Current every day smoker Tobacco Use: Cigarettes Assessment/Plan All Active Problems (Last Reviewed 04/13/18 @ 06:39 by Afua Friedman) Encephalopathy (Acute) Leukocytosis (Acute) Hypotension (Acute) Decreased level of consciousness (Acute) Respiratory failure with hypercapnia (Acute) MRSA pneumonia (Acute) Acute delirium (Acute) Headache (Acute) Gram-negative pneumonia (Resolved) Septic shock (Resolved) Tobacco user (Resolved) 68 year old F with past medical history of COPD, PRESS syndrome, seizure disorder, last had a seizure in 2017, history of chronic migraines, nocturia hypoxia on 2 L of oxygen at night, RENNY on CPAP who was going to see her orthotics prosthetics assistant on her 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 1. Breakthrough seizures, history of seizures, on Depakote, stable vitals, given Ativan and Keppra, CT scan of head is negative. Plan: EEG, Neurology consulted, will await recommendations, will resume on home Depakote, depakote levels requested yesterday, will continue with seizure precautions. 2. Hypothyroidism, on levothyroxine. 3. COPD, continue with breathing treatments as needed, spiriva 4. Nocturnal hypoxia, on 2 L of oxygen at night 5. RENNY on CPap, 10mmHg 6. Dehydration, improved with IV fluids. 7. PRESS syndrome, h/o CVA, ff with neurologist in [facility]. 8. DVT PPx- Heparin SC 9. GI PPx- Famotidine 10. Code status: Full code; is the HCPOA. 11. Disposition: Transfer to [facility] and possible dc in 24-48hrs Code Visit Inpatient E&M: 15903 Subs Hosp L2
--- NOTE | 2018-07-14 10:00 | CASEMGMT ---
RN CM Assessment Presentation: seizures, breakthrough. Pt was on seizure medication prior to admission and was compliant. Intro role of CM and purpose of RN CM assessment to pt's . Pt is lethargic, sleepy and not able to participate at this time. cares for pt at home when she needs assist, and manages her medications. PCP: Dr. Baca Specialists: Dr. Diallo, Dr. Means Preferred Pharmacy: [facility] Insurance: [facility] Prescription Benefit: yes LNOK: Living Arrangements: One story home. Pt was mostly independent prior admission. states he assists with getting her out of their garden tub. She is otherwise independent in ADL's. Pt uses walker @ home and wheelchair outside home. Transportation: drives. DME: walker, cane, wheelchair. Home oxygen @ night only. 2L [place] bleed in to CPAP. states through [employer]. [facility]: [facility] PH: [phone] FX: [phone] Pt had [facility] prior to admission. PT/OT has been concluded. Called to [facility] and update. H/P and resumption of care order faxed to them. They request DC instructions, summary be faxed on dc. DC PLAN: anticipate home with resumption of Home Care.
--- NOTE | 2018-07-14 10:13 | PCM.CONS.GEN ---
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 she has residual left sided weakness and visual field deficit.1st sz in 2017, no recurrence until now. describes 3 episodes yesterday of bilateral upper extremity shaking, sitting at the time, unclear if legs shaking, gaze and head turned to the left as a first component of the event. each of the 3 spells were similar, lasting 5-8 minutes. no tongue biting, now improved but not baseline. reports taking excessive excedrin migraine and aleve recently for migraine and rizatriptan. was taking depakote since her first seizure in 2017 and has been compliant. 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 According to the , patient has been complaining of abdominal discomfort and has been constipated. Patient told him that she had vomited twice this morning. No other sick contacts or runny nose or chest pain or shortness of breath. States that patient has been on multiple [id number] medications and is concerned that she has been taking too many pain medications. At time of being examined, patient was lethargic, was given Ativan and Keppra a little while ago. Also the ED show temperature of 98.3F, heart rate 93, blood pressure 190/99, respiratory rate was 36, SPO2 of 96% on room air. Her admitting blood work was remarkable for WBC count of 13.1, hemoglobin 14.2, platelet count 248. BMP shows sodium 142, does not 3.7, chloride 110, bicarbonate 20, BUN 19, creatinine 1.06, troponin was 0.015, UA was unremarkable. Chest x-ray shows no acute cardiopulmonary infiltrate, CT of the head shows chronic inflammatory changes. Past Medical History Past Medical History (Chronic Problems): Chronic Problems (Last Reviewed 07/14/18 @ 10:23 by Sander Means MD) Tobacco abuse (Chronic) RENNY (obstructive sleep apnea) (Chronic) Mild diastolic dysfunction (Chronic) Depression (Chronic) Restless leg (Chronic) HTN (hypertension) (Chronic) Presbycusis of both ears (Chronic) Adrenal insufficiency (Chronic) COPD (chronic obstructive pulmonary disease) (Chronic) Hypothyroidism (Chronic) Pulmonary fibrosis (Chronic) Medical History: Medical History (Last Reviewed 07/14/18 @ 10:23 by Sander Means MD) Encephalopathy (Acute) G93.40 Leukocytosis (Acute) D72.829 Hypotension (Acute) I95.9 Decreased level of consciousness (Acute) R40.4 Respiratory failure with hypercapnia (Acute) J96.92 MRSA pneumonia (Acute) J15.212 Acute delirium (Acute) R41.0 Headache (Acute) R51 RENNY (obstructive sleep apnea) (Chronic) G47.33 Mild diastolic dysfunction (Chronic) I51.9 Depression (Chronic) F32.9 Restless leg (Chronic) HTN (hypertension) (Chronic) I10 Presbycusis of both ears (Chronic) H91.13 Adrenal insufficiency (Chronic) E27.40 COPD (chronic obstructive pulmonary disease) (Chronic) J44.9 Hypothyroidism (Chronic) E03.9 Pulmonary fibrosis (Chronic) J84.10 COPD with acute exacerbation J44.1 Gallstones K80.20 Septic shock A41.9, R65.21 UTI (urinary tract infection) N39.0 Anxiety F41.9 Bronchitis J40 Carpal tunnel syndrome G56.00 Cataract H26.9 Chronic back pain M54.9, G89.29 Migraine G43.909 Osteopenia M85.80 Solitary pulmonary nodule R91.1 Stage 2 moderate COPD by GOLD classification J44.9 Tobacco abuse Z72.0 Acute respiratory failure J96.00 H/O: hysterectomy Z98.890, Z90.710 Hypersomnia G47.10 Allergies Sulfa (Sulfonamide Antibiotics) Adverse Reaction (Intermediate, Verified 07/13/18 14:52) Other - Messes with blood counts prochlorperazine edisylate [From Compazine] Adverse Reaction (Mild, Verified 07/13/18 14:52) Other - Restless legs prochlorperazine maleate [From Compazine] Adverse Reaction (Mild, Verified 07/13/18 14:52) Other - Restless legs Home Medications: Ambulatory Orders Medication Instructions Recorded Pantoprazole Sodium [Protonix] 40 mg PO DAILY 08/23/16 albuterol sulfate HFA 90 2 puff INHALATION Q4H PRN g 06/16/17 mcg/actuation aerosol inhaler ipratropium-albuterol 0.5 mg-3 3 ml INHALATION Q4H PRN ml 06/16/17 mg(2.5 mg base)/3 mL nebulization soln budesonide-formoterol HFA 160 2 inh INHALATION Q12H #10.2 g 09/28/17 mcg-4.5 mcg/actuation aerosol inhaler Divalproex Sodium [Depakote] 250 mg PO QHS 12/14/17 Risperidone [Risperdal] 0.5 mg PO DAILY 12/14/17 Ropinirole HCl [Requip] 0.5 - 1 mg PO QHS 12/14/17 Sertraline HCl [Zoloft] 50 mg PO DAILY 12/14/17 melatonin 10 mg capsule 15 mg PO QHS 12/29/17 Rizatriptan Benzoate [Maxalt] 10 mg PO .X1 PRN PRN 02/05/18 tiotropium bromide 2.5 2 puff INHALATION DAILY #4 g 04/13/18 mcg/actuation mist for inhalation Aspirin/Acetaminophen/Caffeine 1 tab PO PRN PRN 05/16/18 [Excedrin Migraine Caplet] Divalproex Sodium 500 mg PO BID 05/16/18 Levothyroxine Sodium [Synthroid] 150 mcg PO DAILY 05/16/18 Multivit-Min/Iron/Folic/Lutein 1 tab PO DAILY 05/16/18 [Centrum Silver Women Tablet] Naproxen Sodium [Aleve] 220 mg PO PRN PRN 05/16/18 Cyclobenzaprine HCl 10 mg PO BID PRN PRN 07/13/18 Risperidone 1 mg PO QHS 07/13/18 Surgical History: Surgical History (Last Reviewed 07/14/18 @ 10:24 by Sander Means MD) Cochlear implant in place Z96.21 Dr Andrade 2014 H/O adenoidectomy Z98.890, Z90.89 History of cataract surgery Z98.49 History of cholecystectomy Z98.890, Z90.49 History of lung biopsy Z98.890 Hx of appendectomy Z98.890, Z90.49 Hx of left knee surgery Z98.890 joint lipoma removal vocal nodules removed Surgical History: appendectomy, cholecystectomy, hysterectomy, total hip arthroplasty - Right, - - thyroidectomy and BL intraocular lens implants,cochear implant Psychiatric History: Anxiety, Depression, - - Suspected narcotic dependence. 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 Smoking Status: Current every day smoker Tobacco Use: Cigarettes Alcohol: Occasional - cocktail drink Drugs: None - *Family History Maternal Family History: Family History (Last Reviewed 07/14/18 @ 10:24 by Sander Means MD) Mother Hypertension CVA (cerebral vascular accident) Father CVA (cerebral vascular accident) Hypertension Sister Colon cancer Grandfather Hypertension Heart disease History Items: Heart Disease, Stroke Paternal Family History: Family History (Last Reviewed 07/14/18 @ 10:24 by Sander Means MD) Mother Hypertension CVA (cerebral vascular accident) Father CVA (cerebral vascular accident) Hypertension Sister Colon cancer Grandfather Hypertension Heart disease History Items: Heart Disease, Stroke Sibling Family History: Family History (Last Reviewed 07/14/18 @ 10:24 by Sander Means MD) Mother Hypertension CVA (cerebral vascular accident) Father CVA (cerebral vascular accident) Hypertension Sister Colon cancer Grandfather Hypertension Heart disease History Items: - - sister with colon cancer Review of Systems Constitutional: Denies: Chills, Fever, Weight Change HEENT: Denies: Head Aches, Sinus Congestion, Sinus Drainage Cardiovascular: Denies: Chest Pain, Palpitations Respiratory: Denies: Cough, Shortness of breath at rest, Sputum production Gastrointestinal: Denies: Abdominal Pain, Nausea, Vomiting Genitourinary: Denies: Dysuria Musculoskeletal: Denies: Joint Pain, Joint Tenderness Skin: Denies: Rash, Wounds Neurological: Denies: Numbness, Tingling, Focal weakness Psychiatric: Denies: Anxiety, Depression, Homicidal Ideations, Suicidal Ideations Hematologic/ Lymphatic: Denies: Easy Bruising, Easy Bleeding Objective: On examination she is mildly somnolent but arouses to voice There is a left field cut Cranial nerves are otherwise intact There is a left tongue border and ecchymosis, mild Mild left-sided weakness but no drift Sensation intact - Physical Exam Vital Signs Temp Pulse Resp BP Pulse Ox 36.8 C 71 22 H 147/45 H 95 07/14/18 09:59 07/14/18 09:59 07/14/18 09:59 07/14/18 09:59 07/14/18 09:59 Oxygen Flow Rate (L/min) 2 Oxygen Delivery Method Room Air Weight: 67.6 kg Body Mass Index (BMI) 22.9 Finger Stick Blood Glucose 108 Intake and Output for Last 24 Hours 07/12/18 07/13/18 07/14/18 23:59 23:59 23:59 Intake Total 735 / 735 490 / 490 Output Total 450 / 450 500 / 500 Balance 285 / 285 -10 / -10 Laboratory Tests Past 24 Hrs 07/13/18 07/13/18 07/13/18 09:35 14:30 14:30 WBC 13.1 H RBC 4.50 Hgb 14.2 Hct 45.1 MCV 100.2 H MCH 31.6 MCHC 31.5 L RDW 15.3 H RDW Differential 56.1 H Plt Count 248 MPV 9.7 Immature Gran % (Auto) 0.900 Neut % (Auto) 77.9 H Lymph % (Auto) 10.8 L [place] % (Auto) 9.4 Eos % (Auto) 0.7 Baso % (Auto) 0.3 Absolute Neuts (auto) 10.2 H Absolute Lymphs (auto) 1.41 Total Counted Not Reportable Specimen Type Sample Site pH Bicarbonate Actual POC Total CO2 Base Excess O2 Saturation ABG pCO2 ABG pO2 O2 Delivery Device Liter Flow Blood Gas Notified Whom Blood Gas Notified Time Sodium 142 Potassium 3.7 Chloride 110 H Carbon Dioxide 22.0 Anion Gap 10 BUN 19 H Creatinine 1.06 H Estim Creat Clear Calc 52.66 Est GFR (MDRD) Af Amer 67 Est GFR (MDRD) Non-Af 55 L BUN/Creatinine Ratio 17.9 Glucose 130 H Calcium 8.4 L Troponin I < 0.015 Urine Color Urine Clarity Urine pH Ur Specific [place] Urine Protein Urine Glucose (UA) Urine Ketones Urine Occult Blood Urine Nitrite Urine Bilirubin Urine Urobilinogen Ur Leukocyte Esterase Urine RBC Urine WBC Ur Squamous Epith Cells Urine Bacteria Urine Mucus Valproic Acid Levetiracetam Miscellaneous Test Cancelled 07/13/18 07/13/18 07/14/18 15:20 16:12 04:35 WBC 11.7 H RBC 4.32 Hgb 13.4 Hct 42.5 MCV 98.4 MCH 31.0 MCHC 31.5 L RDW 15.2 H RDW Differential 55.4 H Plt Count 215 MPV 9.6 Immature Gran % (Auto) 0.300 Neut % (Auto) 81.3 H Lymph % (Auto) 14.5 L [place] % (Auto) 2.9 Eos % (Auto) 0.8 Baso % (Auto) 0.2 Absolute Neuts (auto) 9.5 H Absolute Lymphs (auto) 1.69 Total Counted Not Reportable Specimen Type ART Sample Site R Radial pH 7.31 L Bicarbonate Actual 22.8 POC Total CO2 24 Base Excess -3 L O2 Saturation 91 L ABG pCO2 45.3 H ABG pO2 66 L O2 Delivery Device Nasal Can Liter Flow 2.0 Blood Gas Notified Whom ED Blood Gas Notified Time 1610 Sodium Potassium Chloride Carbon Dioxide Anion Gap BUN Creatinine Estim Creat Clear Calc Est GFR (MDRD) Af Amer Est GFR (MDRD) Non-Af BUN/Creatinine Ratio Glucose Calcium Troponin I Urine Color Yellow Urine Clarity Clear Urine pH 6.0 Ur Specific [place] 1.020 Urine Protein 100 H Urine Glucose (UA) Normal Urine Ketones Negative Urine Occult Blood 25 H Urine Nitrite Negative Urine Bilirubin Negative Urine Urobilinogen Normal Ur Leukocyte Esterase 25 H Urine RBC 0-5 SEEN Urine WBC 0-5 SEEN Ur Squamous Epith Cells 0-5 SEEN Urine Bacteria 0 SEEN Urine Mucus 0 SEEN Valproic Acid Levetiracetam Miscellaneous Test 07/14/18 07/14/18 07/14/18 04:35 09:35 09:35 WBC RBC Hgb Hct MCV MCH MCHC RDW RDW Differential Plt Count MPV Immature Gran % (Auto) Neut % (Auto) Lymph % (Auto) [place] % (Auto) Eos % (Auto) Baso % (Auto) Absolute Neuts (auto) Absolute Lymphs (auto) Total Counted Specimen Type Sample Site pH Bicarbonate Actual POC Total CO2 Base Excess O2 Saturation ABG pCO2 ABG pO2 O2 Delivery Device Liter Flow Blood Gas Notified Whom Blood Gas Notified Time Sodium 146 H Potassium 3.8 Chloride 114 H Carbon Dioxide 25.0 Anion Gap 7 BUN 14 Creatinine 0.70 Estim Creat Clear Calc 55.82 Est GFR (MDRD) Af Amer 108 Est GFR (MDRD) Non-Af 90 BUN/Creatinine Ratio 20.1 H Glucose 86 Calcium 8.0 L Troponin I Urine Color Urine Clarity Urine pH Ur Specific [place] Urine Protein Urine Glucose (UA) Urine Ketones Urine Occult Blood Urine Nitrite Urine Bilirubin Urine Urobilinogen Ur Leukocyte Esterase Urine RBC Urine WBC Ur Squamous Epith Cells Urine Bacteria Urine Mucus Valproic Acid Pending Levetiracetam Pending Miscellaneous Test POC Glucose 07/13/18 23:34 POC Glucose 86 Current Home Med List Medication Instructions Recorded Confirmed Type Pantoprazole Sodium [Protonix] 40 mg PO DAILY 08/23/16 07/13/18 History albuterol sulfate HFA 90 2 puff INHALATION Q4H PRN g 06/16/17 07/13/18 History mcg/actuation aerosol inhaler ipratropium-albuterol 0.5 mg-3 3 ml INHALATION Q4H PRN ml 06/16/17 07/13/18 History mg(2.5 mg base)/3 mL nebulization soln budesonide-formoterol HFA 160 2 inh INHALATION Q12H #10.2 g 09/28/17 07/13/18 Rx mcg-4.5 mcg/actuation aerosol inhaler Divalproex Sodium [Depakote] 250 mg PO QHS 12/14/17 07/13/18 History Risperidone [Risperdal] 0.5 mg PO DAILY 12/14/17 07/13/18 History Ropinirole HCl [Requip] 0.5 - 1 mg PO QHS 12/14/17 07/13/18 History Sertraline HCl [Zoloft] 50 mg PO DAILY 12/14/17 07/13/18 History melatonin 10 mg capsule 15 mg PO QHS 12/29/17 07/13/18 History Rizatriptan Benzoate [Maxalt] 10 mg PO .X1 PRN PRN 02/05/18 07/13/18 History tiotropium bromide 2.5 2 puff INHALATION DAILY #4 g 04/13/18 07/13/18 Rx mcg/actuation mist for inhalation Aspirin/Acetaminophen/Caffeine 1 tab PO PRN PRN 05/16/18 07/13/18 History [Excedrin Migraine Caplet] Divalproex Sodium 500 mg PO BID 05/16/18 07/13/18 History Levothyroxine Sodium [Synthroid] 150 mcg PO DAILY 05/16/18 07/13/18 History Multivit-Min/Iron/Folic/Lutein 1 tab PO DAILY 05/16/18 07/13/18 History [Centrum Silver Women Tablet] Naproxen Sodium [Aleve] 220 mg PO PRN PRN 05/16/18 07/13/18 History Cyclobenzaprine HCl 10 mg PO BID PRN PRN 07/13/18 07/13/18 History Risperidone 1 mg PO QHS 07/13/18 07/13/18 History Current Medications Acetaminophen 650 mg 07/14/18 09:02 Tylenol PO Q4H PRN PRN HEADACHE Albuterol Sulfate 2.5 mg 07/14/18 10:15 Ventolin Aerosols INHALATION Q6HWA.RT ELVI Albuterol/Ipratropium 3 ml 07/14/18 09:36 Duoneb INHALATION Q4H PRN PRN SOB &/OR WHEEZING Bisacodyl 5 mg 07/13/18 16:58 Dulcolax PO DAILY PRN PRN Constipation Budesonide 0.5 mg 07/14/18 10:15 Pulmicort Aerosol INHALATION BID.RT ELVI Cyclobenzaprine HCl 10 mg 07/14/18 09:36 Flexeril PO BID PRN PRN MUSCLE SPASMS Divalproex Sodium 500 mg 07/14/18 10:00 Depakote PO BID [facility] Divalproex Sodium 250 mg 07/14/18 22:00 Depakote PO QHS [facility] Famotidine 20 mg 07/14/18 10:00 Pepcid PO BID [facility] Heparin Sodium (Porcine) 5,000 unit 07/13/18 22:00 07/14/18 06:13 Heparin Na SC 5,000 unit Q8 [facility] Administration Ipratropium [place] 0.5 mg 07/14/18 10:05 Atrovent INHALATION Q6HWA.RT ELVI Levetiracetam 1,000 mg 07/14/18 10:00 Keppra Tablet PO BID [facility] Levothyroxine Sodium 150 mcg 07/15/18 06:00 Synthroid PO DAILY@0600 ELVI Lorazepam 2 mg 07/13/18 16:58 Ativan IV PRN PRN SEIZURES Magnesium Hydroxide 30 ml 07/13/18 16:58 Milk Of Magnesia PO DAILY PRN PRN Constipation Melatonin 15 mg 07/14/18 22:00 Melatonin PO QHS ELVI Multivitamins/Minerals 1 tablet 07/15/18 08:00 Multivitamin With Minerals PO DAILY@0800 [facility] Nicotine 21 mg 07/14/18 10:00 Nicoderm Cq ([facility]) TRANSDERM. DAILY [facility] Non-Formulary Medication 1 tab 07/14/18 09:36 Aspirin/Acetaminophen/Caffeine [Excedrin Migraine Caplet] PO PRN PRN PAIN Ondansetron HCl 4 mg 07/13/18 16:58 Zofran IV Q8H PRN PRN NAUSEA Pantoprazole Sodium 40 mg 07/14/18 10:00 Protonix PO DAILY [facility] Psyllium Hydrophilic Mucilloid 1 packet 07/13/18 16:58 Metamucil PO DAILY PRN PRN CONSTIPATION Risperidone 1 mg 07/14/18 22:00 Risperdal PO QHS [facility] Risperidone 0.5 mg 07/14/18 10:00 Risperdal PO DAILY [facility] Rizatriptan Benzoate 10 mg 07/14/18 09:36 Maxalt PO .X1 PRN PRN MIGRAINE SYMPTOMS Sertraline HCl 50 mg 07/14/18 10:00 Zoloft PO DAILY [facility] ct reviewed, old right jillian distribution infarct Assessment/Plan All Active Problems (Last Reviewed 07/14/18 @ 10:23 by Sander Means MD) Encephalopathy (Acute) Leukocytosis (Acute) Hypotension (Acute) Decreased level of consciousness (Acute) Respiratory failure with hypercapnia (Acute) MRSA pneumonia (Acute) Acute delirium (Acute) Headache (Acute) Gram-negative pneumonia (Resolved) Septic shock (Resolved) Tobacco user (Resolved) Seizure, s/p right jillian infarct, history of headaches and medication overuse headache, unclear history of pres, has cochlear implant will adjust scott andre for now mri if able (will contact ent office) await eeg
--- NOTE | 2018-07-14 10:23 | CON.PCM_ITS ---
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 she has residual left sided weakness and visual field deficit.1st sz in 2017, no recurrence until now. describes 3 episodes yesterday of bilateral upper extremity shaking, sitting at the time, unclear if legs shaking, gaze and head turned to the left as a first component of the event. each of the 3 spells were similar, lasting 5-8 minutes. no tongue biting, now improved but not baseline. reports taking excessive excedrin migraine and aleve recently for migraine and rizatriptan. was taking depakote since her first seizure in 2017 and has been compliant. 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 According to the , patient has been complaining of abdominal discomfort and has been constipated. Patient told him that she had vomited twice this morning. No other sick contacts or runny nose or chest pain or shortness of breath. States that patient has been on multiple [id number] medications and is concerned that she has been taking too many pain medications. At time of being examined, patient was lethargic, was given Ativan and Keppra a little while ago. Also the ED show temperature of 98.3F, heart rate 93, blood pressure 190/99, respiratory rate was 36, SPO2 of 96% on room air. Her admitting blood work was remarkable for WBC count of 13.1, hemoglobin 14.2, platelet count 248. BMP shows sodium 142, does not 3.7, chloride 110, bicarbonate 20, BUN 19, creatinine 1.06, troponin was 0.015, UA was unremarkable. Chest x-ray shows no acute cardiopulmonary infiltrate, CT of the head shows chronic inflammatory changes. Past Medical History Past Medical History (Chronic Problems): Chronic Problems (Last Reviewed 07/14/18 @ 10:23 by Sander Means MD) Tobacco abuse (Chronic) RENNY (obstructive sleep apnea) (Chronic) Mild diastolic dysfunction (Chronic) Depression (Chronic) Restless leg (Chronic) HTN (hypertension) (Chronic) Presbycusis of both ears (Chronic) Adrenal insufficiency (Chronic) COPD (chronic obstructive pulmonary disease) (Chronic) Hypothyroidism (Chronic) Pulmonary fibrosis (Chronic) Medical History: Medical History (Last Reviewed 07/14/18 @ 10:23 by Sander Means MD) Encephalopathy (Acute) G93.40 Leukocytosis (Acute) D72.829 Hypotension (Acute) I95.9 Decreased level of consciousness (Acute) R40.4 Respiratory failure with hypercapnia (Acute) J96.92 MRSA pneumonia (Acute) J15.212 Acute delirium (Acute) R41.0 Headache (Acute) R51 RENNY (obstructive sleep apnea) (Chronic) G47.33 Mild diastolic dysfunction (Chronic) I51.9 Depression (Chronic) F32.9 Restless leg (Chronic) HTN (hypertension) (Chronic) I10 Presbycusis of both ears (Chronic) H91.13 Adrenal insufficiency (Chronic) E27.40 COPD (chronic obstructive pulmonary disease) (Chronic) J44.9 Hypothyroidism (Chronic) E03.9 Pulmonary fibrosis (Chronic) J84.10 COPD with acute exacerbation J44.1 Gallstones K80.20 Septic shock A41.9, R65.21 UTI (urinary tract infection) N39.0 Anxiety F41.9 Bronchitis J40 Carpal tunnel syndrome G56.00 Cataract H26.9 Chronic back pain M54.9, G89.29 Migraine G43.909 Osteopenia M85.80 Solitary pulmonary nodule R91.1 Stage 2 moderate COPD by GOLD classification J44.9 Tobacco abuse Z72.0 Acute respiratory failure J96.00 H/O: hysterectomy Z98.890, Z90.710 Hypersomnia G47.10 Allergies Sulfa (Sulfonamide Antibiotics) Adverse Reaction (Intermediate, Verified 07/13 14:52) Other - Messes with blood counts prochlorperazine edisylate [From Compazine] Adverse Reaction (Mild, Verified 07/13/18 14:52) Other - Restless legs prochlorperazine maleate [From Compazine] Adverse Reaction (Mild, Verified 07/13/18 14:52) Other - Restless legs Home Medications: Ambulatory Orders Medication Instructions Recorded Pantoprazole Sodium [Protonix] 40 mg PO DAILY 08/23/16 albuterol sulfate HFA 90 2 puff INHALATION Q4H PRN g 06/16/17 mcg/actuation aerosol inhaler ipratropium-albuterol 0.5 mg-3 3 ml INHALATION Q4H PRN ml 06/16/17 mg(2.5 mg base)/3 mL nebulization soln budesonide-formoterol HFA 160 2 inh INHALATION Q12H #10.2 g 09/28/17 mcg-4.5 mcg/actuation aerosol inhaler Divalproex Sodium [Depakote] 250 mg PO QHS 12/14/17 Risperidone [Risperdal] 0.5 mg PO DAILY 12/14/17 Ropinirole HCl [Requip] 0.5 - 1 mg PO QHS 12/14/17 Sertraline HCl [Zoloft] 50 mg PO DAILY 12/14/17 melatonin 10 mg capsule 15 mg PO QHS 12/29/17 Rizatriptan Benzoate [Maxalt] 10 mg PO .X1 PRN PRN 02/05/18 tiotropium bromide 2.5 2 puff INHALATION DAILY #4 g 04/13/18 mcg/actuation mist for inhalation Aspirin/Acetaminophen/Caffeine 1 tab PO PRN PRN 05/16/18 [Excedrin Migraine Caplet] Divalproex Sodium 500 mg PO BID 05/16/18 Levothyroxine Sodium [Synthroid] 150 mcg PO DAILY 05/16/18 Multivit-Min/Iron/Folic/Lutein 1 tab PO DAILY 05/16/18 [Centrum Silver Women Tablet] Naproxen Sodium [Aleve] 220 mg PO PRN PRN 05/16/18 Cyclobenzaprine HCl 10 mg PO BID PRN PRN 07/13/18 Risperidone 1 mg PO QHS 07/13/18 Surgical History: Surgical History (Last Reviewed 07/14/18 @ 10:24 by Sander Means MD) Cochlear implant in place Z96.21 Dr Andrade 2014 H/O adenoidectomy Z98.890, Z90.89 History of cataract surgery Z98.49 History of cholecystectomy Z98.890, Z90.49 History of lung biopsy Z98.890 Hx of appendectomy Z98.890, Z90.49 Hx of left knee surgery Z98.890 joint lipoma removal vocal nodules removed Surgical History: appendectomy, cholecystectomy, hysterectomy, total hip arthroplasty - Right, - - thyroidectomy and BL intraocular lens implants,cochear implant Psychiatric History: Anxiety, Depression, - - Suspected narcotic dependence. HAND SALTER History: No pertinent HAND SALTER history Smoking Status: Current every day smoker Tobacco Use: Cigarettes Alcohol: Occasional - cocktail drink Drugs: None - *Family History Maternal Family History: Family History (Last Reviewed 07/14/18 @ 10:24 by Sander Means MD) Mother Hypertension CVA (cerebral vascular accident) Father CVA (cerebral vascular accident) Hypertension Sister Colon cancer Grandfather Hypertension Heart disease History Items: Heart Disease, Stroke Paternal Family History: Family History (Last Reviewed 07/14/18 @ 10:24 by Sander Means MD) Mother Hypertension CVA (cerebral vascular accident) Father CVA (cerebral vascular accident) Hypertension Sister Colon cancer Grandfather Hypertension Heart disease History Items: Heart Disease, Stroke Sibling Family History: Family History (Last Reviewed 07/14/18 @ 10:24 by Sander Means MD) Mother Hypertension CVA (cerebral vascular accident) Father CVA (cerebral vascular accident) Hypertension Sister Colon cancer Grandfather Hypertension Heart disease History Items: - - sister with colon cancer Review of Systems Constitutional: Denies: Chills, Fever, Weight Change HEENT: Denies: Head Aches, Sinus Congestion, Sinus Drainage Cardiovascular: Denies: Chest Pain, Palpitations Respiratory: Denies: Cough, Shortness of breath at rest, Sputum production Gastrointestinal: Denies: Abdominal Pain, Nausea, Vomiting Genitourinary: Denies: Dysuria Musculoskeletal: Denies: Joint Pain, Joint Tenderness Skin: Denies: Rash, Wounds Neurological: Denies: Numbness, Tingling, Focal weakness Psychiatric: Denies: Anxiety, Depression, Homicidal Ideations, Suicidal Ideations Hematologic/ Lymphatic: Denies: Easy Bruising, Easy Bleeding Objective: On examination she is mildly somnolent but arouses to voice There is a left field cut Cranial nerves are otherwise intact There is a left tongue border and ecchymosis, mild Mild left-sided weakness but no drift Sensation intact - Physical Exam Vital Signs Temp Pulse Resp BP Pulse Ox 36.8 C 71 22 H 147/45 H 95 07/14/18 09:59 07/14/18 09:59 07/14/18 09:59 07/14/18 09:59 07/14/18 09:59 Oxygen Flow Rate (L/min) 2 Oxygen Delivery Method Room Air Weight: 67.6 kg Body Mass Index (BMI) 22.9 Finger Stick Blood Glucose 108 Intake and Output for Last 24 Hours 07/12/18 07/13/18 07/14/18 23:59 23:59 23:59 Intake Total 735 / 735 490 / 490 Output Total 450 / 450 500 / 500 Balance 285 / 285 -10 / -10 Laboratory Tests Past 24 Hrs 07/13/18 07/13/18 07/13/18 09:35 14:30 14:30 WBC 13.1 H RBC 4.50 Hgb 14.2 Hct 45.1 MCV 100.2 H MCH 31.6 MCHC 31.5 L RDW 15.3 H RDW Differential 56.1 H Plt Count 248 MPV 9.7 Immature Gran % (Auto) 0.900 Neut % (Auto) 77.9 H Lymph % (Auto) 10.8 L [place] % (Auto) 9.4 Eos % (Auto) 0.7 Baso % (Auto) 0.3 Absolute Neuts (auto) 10.2 H Absolute Lymphs (auto) 1.41 Total Counted Not Reportable Specimen Type Sample Site pH Bicarbonate Actual POC Total CO2 Base Excess O2 Saturation ABG pCO2 ABG pO2 O2 Delivery Device Liter Flow Blood Gas Notified Whom Blood Gas Notified Time Sodium 142 Potassium 3.7 Chloride 110 H Carbon Dioxide 22.0 Anion Gap 10 BUN 19 H Creatinine 1.06 H Estim Creat Clear Calc 52.66 Est GFR (MDRD) Af Amer 67 Est GFR (MDRD) Non-Af 55 L BUN/Creatinine Ratio 17.9 Glucose 130 H Calcium 8.4 L Troponin I < 0.015 Urine Color Urine Clarity Urine pH Ur Specific [place] Urine Protein Urine Glucose (UA) Urine Ketones Urine Occult Blood Urine Nitrite Urine Bilirubin Urine Urobilinogen Ur Leukocyte Esterase Urine RBC Urine WBC Ur Squamous Epith Cells Urine Bacteria Urine Mucus Valproic Acid Levetiracetam Miscellaneous Test Cancelled 07/13/18 07/13/18 07/14/18 15:20 16:12 04:35 WBC 11.7 H RBC 4.32 Hgb 13.4 Hct 42.5 MCV 98.4 MCH 31.0 MCHC 31.5 L RDW 15.2 H RDW Differential 55.4 H Plt Count 215 MPV 9.6 Immature Gran % (Auto) 0.300 Neut % (Auto) 81.3 H Lymph % (Auto) 14.5 L [place] % (Auto) 2.9 Eos % (Auto) 0.8 Baso % (Auto) 0.2 Absolute Neuts (auto) 9.5 H Absolute Lymphs (auto) 1.69 Total Counted Not Reportable Specimen Type ART Sample Site R Radial pH 7.31 L Bicarbonate Actual 22.8 POC Total CO2 24 Base Excess -3 L O2 Saturation 91 L ABG pCO2 45.3 H ABG pO2 66 L O2 Delivery Device Nasal Can Liter Flow 2.0 Blood Gas Notified Whom ED Blood Gas Notified Time 1610 Sodium Potassium Chloride Carbon Dioxide Anion Gap BUN Creatinine Estim Creat Clear Calc Est GFR (MDRD) Af Amer Est GFR (MDRD) Non-Af BUN/Creatinine Ratio Glucose Calcium Troponin I Urine Color Yellow Urine Clarity Clear Urine pH 6.0 Ur Specific [place] 1.020 Urine Protein 100 H Urine Glucose (UA) Normal Urine Ketones Negative Urine Occult Blood 25 H Urine Nitrite Negative Urine Bilirubin Negative Urine Urobilinogen Normal Ur Leukocyte Esterase 25 H Urine RBC 0-5 SEEN Urine WBC 0-5 SEEN Ur Squamous Epith Cells 0-5 SEEN Urine Bacteria 0 SEEN Urine Mucus 0 SEEN Valproic Acid Levetiracetam Miscellaneous Test 07/14/18 07/14/18 07/14/18 04:35 09:35 09:35 WBC RBC Hgb Hct MCV MCH MCHC RDW RDW Differential Plt Count MPV Immature Gran % (Auto) Neut % (Auto) Lymph % (Auto) [place] % (Auto) Eos % (Auto) Baso % (Auto) Absolute Neuts (auto) Absolute Lymphs (auto) Total Counted Specimen Type Sample Site pH Bicarbonate Actual POC Total CO2 Base Excess O2 Saturation ABG pCO2 ABG pO2 O2 Delivery Device Liter Flow Blood Gas Notified Whom Blood Gas Notified Time Sodium 146 H Potassium 3.8 Chloride 114 H Carbon Dioxide 25.0 Anion Gap 7 BUN 14 Creatinine 0.70 Estim Creat Clear Calc 55.82 Est GFR (MDRD) Af Amer 108 Est GFR (MDRD) Non-Af 90 BUN/Creatinine Ratio 20.1 H Glucose 86 Calcium 8.0 L Troponin I Urine Color Urine Clarity Urine pH Ur Specific [place] Urine Protein Urine Glucose (UA) Urine Ketones Urine Occult Blood Urine Nitrite Urine Bilirubin Urine Urobilinogen Ur Leukocyte Esterase Urine RBC Urine WBC Ur Squamous Epith Cells Urine Bacteria Urine Mucus Valproic Acid Pending Levetiracetam Pending Miscellaneous Test POC Glucose 07/13/18 23:34 POC Glucose 86 Current Home Med List Medication Instructions Recorded Confirmed Type Pantoprazole Sodium [Protonix] 40 mg PO DAILY 08/23/16 07/13/18 History albuterol sulfate HFA 90 2 puff INHALATION Q4H PRN g 06/16/17 07/13/18 History mcg/actuation aerosol inhaler ipratropium-albuterol 0.5 mg-3 3 ml INHALATION Q4H PRN ml 06/16/17 07/13/18 History mg(2.5 mg base)/3 mL nebulization soln budesonide-formoterol HFA 160 2 inh INHALATION Q12H #10.2 g 09/28/17 07/13/18 Rx mcg-4.5 mcg/actuation aerosol inhaler Divalproex Sodium [Depakote] 250 mg PO QHS 12/14/17 07/13/18 History Risperidone [Risperdal] 0.5 mg PO DAILY 12/14/17 07/13/18 History Ropinirole HCl [Requip] 0.5 - 1 mg PO QHS 12/14/17 07/13/18 History Sertraline HCl [Zoloft] 50 mg PO DAILY 12/14/17 07/13/18 History melatonin 10 mg capsule 15 mg PO QHS 12/29/17 07/13/18 History Rizatriptan Benzoate [Maxalt] 10 mg PO .X1 PRN PRN 02/05/18 07/13/18 History tiotropium bromide 2.5 2 puff INHALATION DAILY #4 g 04/13/18 07/13/18 Rx mcg/actuation mist for inhalation Aspirin/Acetaminophen/Caffeine 1 tab PO PRN PRN 05/16/18 07/13/18 History [Excedrin Migraine Caplet] Divalproex Sodium 500 mg PO BID 05/16/18 07/13/18 History Levothyroxine Sodium [Synthroid] 150 mcg PO DAILY 05/16/18 07/13/18 History Multivit-Min/Iron/Folic/Lutein 1 tab PO DAILY 05/16/18 07/13/18 History [Centrum Silver Women Tablet] Naproxen Sodium [Aleve] 220 mg PO PRN PRN 05/16/18 07/13/18 History Cyclobenzaprine HCl 10 mg PO BID PRN PRN 07/13/18 07/13/18 History Risperidone 1 mg PO QHS 07/13/18 07/13/18 History Current Medications Acetaminophen 650 mg 07/14/18 09:02 Tylenol PO Q4H PRN PRN HEADACHE Albuterol Sulfate 2.5 mg 07/14/18 10:15 Ventolin Aerosols INHALATION Q6HWA.RT ELVI Albuterol/Ipratropium 3 ml 07/14/18 09:36 Duoneb INHALATION Q4H PRN PRN SOB &/OR WHEEZING Bisacodyl 5 mg 07/13/18 16:58 Dulcolax PO DAILY PRN PRN Constipation Budesonide 0.5 mg 07/14/18 10:15 Pulmicort Aerosol INHALATION BID.RT ELVI Cyclobenzaprine HCl 10 mg 07/14/18 09:36 Flexeril PO BID PRN PRN MUSCLE SPASMS Divalproex Sodium 500 mg 07/14/18 10:00 Depakote PO BID [facility] Divalproex Sodium 250 mg 07/14/18 22:00 Depakote PO QHS [facility] Famotidine 20 mg 07/14/18 10:00 Pepcid PO BID [facility] Heparin Sodium (Porcine) 5,000 unit 07/13/18 22:00 07/14/18 06:13 Heparin Na SC 5,000 unit Q8 [facility] Administration Ipratropium [place] 0.5 mg 07/14/18 10:05 Atrovent INHALATION Q6HWA.RT ELVI Levetiracetam 1,000 mg 07/14/18 10:00 Keppra Tablet PO BID [facility] Levothyroxine Sodium 150 mcg 07/15/18 06:00 Synthroid PO DAILY@0600 ELVI Lorazepam 2 mg 07/13/18 16:58 Ativan IV PRN PRN SEIZURES Magnesium Hydroxide 30 ml 07/13/18 16:58 Milk Of Magnesia PO DAILY PRN PRN Constipation Melatonin 15 mg 07/14/18 22:00 Melatonin PO QHS ELVI Multivitamins/Minerals 1 tablet 07/15/18 08:00 Multivitamin With Minerals PO DAILY@0800 [facility] Nicotine 21 mg 07/14/18 10:00 Nicoderm Cq ([facility]) TRANSDERM. DAILY [facility] Non-Formulary Medication 1 tab 07/14/18 09:36 Aspirin/Acetaminophen/Caffeine [Excedrin Migraine Caplet] PO PRN PRN PAIN Ondansetron HCl 4 mg 07/13/18 16:58 Zofran IV Q8H PRN PRN NAUSEA Pantoprazole Sodium 40 mg 07/14/18 10:00 Protonix PO DAILY [facility] Psyllium Hydrophilic Mucilloid 1 packet 07/13/18 16:58 Metamucil PO DAILY PRN PRN CONSTIPATION Risperidone 1 mg 07/14/18 22:00 Risperdal PO QHS [facility] Risperidone 0.5 mg 07/14/18 10:00 Risperdal PO DAILY [facility] Rizatriptan Benzoate 10 mg 07/14/18 09:36 Maxalt PO .X1 PRN PRN MIGRAINE SYMPTOMS Sertraline HCl 50 mg 07/14/18 10:00 Zoloft PO DAILY [facility] ct reviewed, old right jillian distribution infarct Assessment/Plan All Active Problems (Last Reviewed 07/14/18 @ 10:23 by Sander Means MD) Encephalopathy (Acute) Leukocytosis (Acute) Hypotension (Acute) Decreased level of consciousness (Acute) Respiratory failure with hypercapnia (Acute) MRSA pneumonia (Acute) Acute delirium (Acute) Headache (Acute) Gram-negative pneumonia (Resolved) Septic shock (Resolved) Tobacco user (Resolved) Seizure, s/p right jillian infarct, history of headaches and medication overuse headache, unclear history of pres, has cochlear implant will adjust scott andre for now mri if able (will contact ent office) await eeg
[2018-07-14 10:27] LABS: Valproic Acid (Depakene) Level 24 ug/mL (50-100)
[2018-07-14] MEDS: Pantoprazole Sodium 40 MG Tablet PO (11:19)
[2018-07-14] MEDS: Famotidine 20 MG Tablet PO ×2 (11:19→20:50)
[2018-07-14] MEDS: Divalproex Sodium 250 MG Tablet 1000 MG PO ×2 (11:20→20:50)
[2018-07-14] MEDS: levETIRAcetam 1,000 MG Tablet 1000 MG PO ×2 (11:20→20:49)
[2018-07-14] MEDS: Sertraline 50 MG Tablet PO (11:20)
[2018-07-14] MEDS: Rizatriptan Benzoate 10 MG Tablet PO (12:00)
[2018-07-14] MEDS: RisperiDONE 0.5 MG Tablet PO (12:01)
[2018-07-14] MEDS: Ipratropium 0.5 MG/2.5 ML SOLUTION INHALATION (12:13)
[2018-07-14] MEDS: Budesonide Respules 0.5 MG/2 ML AMPUL.NEB. INHALATION ×2 (12:13→18:46)
[2018-07-14] MEDS: Albuterol 2.5 MG/3 ML VIAL.NEB. INHALATION (12:13)
--- NOTE | 2018-07-14 14:16 | CHAPLAIN ---
Type of Pastoral Visit _x__ Initial Visit ___ Follow-up Visit ___ On-call Visit ___ General Patient Visit ___ Spiritual Assessment ___ Family Conference ___ Bereavement ___ Rapid Response ___ Code Blue ___ Other (describe below) Pastoral Care Referral From _x__ Patient ___ Family ___ Nurse ___ Physician ___ [employer] ___ Home Worker ___ Other (describe below) Sacrament/Intervention _x__ Active listening ___ Anointing ___ Mormon ___ Bereavement ___ Communion ___ Jessica exploration ___ ___ Life review ___ Prayer ___ Reconciliation ___ Sacrament of Sick _x__ Supportive presence ___ Wedding ___ Other (describe below) Pastoral Comments several family members in the room at time of visit; patient says she remembers this gusset ripper from previous admissions; pt displays some difficulty identifying one of the people in the room; ROADMASTER comes into room to assist pt to bathroom; offered future support to family and patient
[2018-07-14] MEDS: Ipratropium/Albuterol Sulfate 3 ML AMPUL.NEB INHALATION (18:45)
[2018-07-14] MEDS: MELATONIN 10 MG TABLET 15 MG PO (20:49)
[2018-07-14] MEDS: RisperiDONE 1 MG Tablet PO (20:50)
[2018-07-15] VITALS (7 sets, daily range): BP systolic 129–146; BP diastolic 68–74; PULSE 84–94; RESP 16–22; TEMP 36.8–37.2; O2SAT 94–96
[2018-07-15] MEDS: Heparin Injection (Vial) 5,000 UNIT/ML VIAL 5000 UNIT SC ×3 (06:11→21:58)
[2018-07-15] MEDS: Levothyroxine 150 MCG Tablet PO (06:11)
[2018-07-15] MEDS: 0.9% NaCl Peripheral Flush Adult/Peds IV ×3 (06:57→21:57)
[2018-07-15] MEDS: Ipratropium/Albuterol Sulfate 3 ML AMPUL.NEB INHALATION ×3 (07:13→19:00)
[2018-07-15] MEDS: Budesonide Respules 0.5 MG/2 ML AMPUL.NEB. INHALATION ×2 (07:13→19:00)
[2018-07-15 07:54] LABS: Anion Gap 9 (5-15); BUN 10 mg/dL (7-18); Chloride 113 mmol/L (98-107); Creatinine, Serum 0.71 mg/dL (0.55-1.02); EST Glomerular Filtration Rate 87 mL/min (>60); Est Glom Filt Rate - Afr Amer 105 mL/min (>60); Estimated Creatinine Clearance 55.82 ml/min; Glucose 80 mg/dL (74-106); Potassium 3.4 mmol/L (3.5-5.1); Sodium Level 146 mmol/L (136-145)
--- NOTE | 2018-07-15 08:24 | EEG ---
- Electroencephalogram date of service 07/14/17 18 channel eeg is performed using the international 10-20 electrode placement system along with ecg reference leads and photic stimulation on this 68 yo female with history of stroke and seizure. background activity is mildly slow at 6-7 hz symmetrically. the patient remained awake throughout the recording without lateralizing or epileptiform changes. photic produces a normal driving response. impression: abnormal eeg due to mild slowing, no epileptiform changes noted
--- NOTE | 2018-07-15 08:27 | EEG_ITS ---
- Electroencephalogram date of service 07/14/17 18 channel eeg is performed using the international 10-20 electrode placement system along with ecg reference leads and photic stimulation on this 68 yo female with history of stroke and seizure. background activity is mildly slow at 6-7 hz symmetrically. the patient remained awake throughout the recording witho ut lateralizing or epileptiform changes. photic produces a normal driving response. impression: abnormal eeg due to mild slowing, no epileptiform changes noted
--- NOTE | 2018-07-15 08:38 | CT_ITS ---
STUDY: CT BRAIN WITHOUT CONTRAST REASON FOR EXAM: Female, 68 years old. CVA, cochlear implant RADIATION DOSAGE (If Supplied By Facility): CTDIvol = ( 44.99 ) mGy, DLP = ( 762.36 ) mGycm TECHNIQUE: Transaxial CT imaging of the brain was performed without administration of intravenous contrast material. Individualized dose optimization techniques were used for this CT. COMPARISON: 07/13/2018 FINDINGS: Left sided cochlear implant similar causing mild degree of artifact. Left mastoidectomy again identified. Normal calvarium. There is mild cerebral atrophy with widening of the extra-axial spaces and ventricular dilatation. There are areas of decreased attenuation within the white matter tracts of the supratentorial brain, consistent with microvascular disease changes. Normal basal ganglia and thalami. Normal brainstem. Normal cerebellum. There is no intracranial hemorrhage. Localized area of decreased density along the medial right parietal lobe adjacent to the falx is stable since the prior study. Minimal diminished density along the right occipital lobe is also stable. Normal visualized paranasal sinuses. CT/Brain/Head without Contrast IMPRESSION: 1. No acute intracranial hemorrhage or evolving infarction. 2. Stable right parietal and occipital lobe infarctions (since 05/16/2018). 3. Central parenchymal volume loss. White matter changes that are nonspecific but most commonly associated with chronic small vessel ischemic disease. Electronically Signed: Bob Angulo MD at 10:02 EST , Service support ,
[2018-07-15] MEDS: Divalproex Sodium 250 MG Tablet 1000 MG PO ×2 (09:56→21:58)
[2018-07-15] MEDS: Famotidine 20 MG Tablet PO ×2 (09:56→21:58)
[2018-07-15] MEDS: Pantoprazole Sodium 40 MG Tablet PO (09:56)
[2018-07-15] MEDS: levETIRAcetam 1,000 MG Tablet 1000 MG PO ×2 (09:57→21:58)
[2018-07-15] MEDS: Multivitamins,Ther W-Minerals Tablet 1 TABLET PO (09:57)
[2018-07-15] MEDS: Sertraline 50 MG Tablet PO (09:57)
[2018-07-15 10:24] LABS: Valproic Acid (Depakene) Level 32 ug/mL (50-100)
[2018-07-15] MEDS: Rizatriptan Benzoate 10 MG Tablet PO (10:48)
--- NOTE | 2018-07-15 12:30 | PCM.PN.HOSP ---
Subjective: Patient was seen and examined. She has been lethargic. No seizures observed since admission. Neurology consulted. Could not do MRI head because of cochlear implant. Repeat CT scan of head today was negative for a new infarct. Valproic acid level was 24 yesterday and 32 today. Discussed with neurologist, will give IV valproic acid 1000mg x 1. Objective: Physical exam: General: Alert, Oriented x3, Cooperative, No apparent distress, - - lethargic HEENT: Atraumatic, PERRLA, EOMI, Normocephalic Oral: Moist Mucosa Neck: Supple, No JVD, Negative Carotid Bruits Lungs: Clear to auscultation, Normal air movement Cardiovascular: Regular rate, Regular Rhythm, Normal S1, Normal S2, No murmurs Abdomen: Bowel Sounds Present, Soft, Non Tender, Non-Distended, No Hepato-splenomegaly Extremities: No edema Skin: No rashes, No breakdown Musculoskeletal: No Tenderness to Palpation of Joints or Extremities Lymphatic: No Cervical, Supraclavicular, or Inguinal Adenopathy Neurological: Cranial nerves II-XII grossly intact, Neuro grossly intact Psych/Mental Status: Normal Affect, Appropriate Vitals/I&O's: Vital Signs Temp Pulse Resp BP Pulse Ox 98.4 F 84 18 146/70 H 94 07/15/18 09:55 07/15/18 09:55 07/15/18 09:55 07/15/18 09:55 07/15/18 09:55 Oxygen Flow Rate (L/min) 2 Oxygen Delivery Method Room Air Weight: 66.2 kg Body Mass Index (BMI) 22.9 Finger Stick Blood Glucose 108 Intake and Output for Last 24 Hours 07/13/18 07/14/18 07/15/18 23:59 23:59 23:59 Intake Total 735 / 735 1290 / 1290 500 / 500 Output Total 450 / 450 500 / 500 Balance 285 / 285 790 / 790 500 / 500 Microbiology Past 72 Hours 07/13/18 15:20 Urine Catheter - [place] Urine Culture - Final Culture exhibits no growth. Laboratory Results 07/15/18 07:00: Sodium 146 H, Potassium 3.4 L, Chloride 113 H, Carbon Dioxide 24.0, Anion Gap 9, BUN 10, Creatinine 0.71, Estim Creat Clear Calc 55.82, Est GFR (MDRD) Af Amer 105, Est GFR (MDRD) Non-Af 87, BUN/Creatinine Ratio 14.0, Glucose 80, Calcium 8.0 L 07/15/18 09:30: Valproic Acid 32 L Current Medications Acetaminophen (Tylenol) 650 mg PO Q4H PRN PRN PRN Reason: HEADACHE Albuterol/Ipratropium (Duoneb) 3 ml INHALATION Q4H PRN PRN PRN Reason: SOB &/OR WHEEZING Albuterol/Ipratropium (Duoneb) 3 ml INHALATION Q6HWA.RT [facility] Last Admin: 07/15/18 07:13 Dose: 3 ml Bisacodyl (Dulcolax) 5 mg PO DAILY PRN PRN PRN Reason: Constipation Budesonide (Pulmicort Aerosol) 0.5 mg INHALATION BID.RT [facility] Last Admin: 07/15/18 07:13 Dose: 0.5 mg Divalproex Sodium (Depakote) 1,000 mg PO BID [facility] Last Admin: 07/15/18 09:56 Dose: 1,000 mg Famotidine (Pepcid) 20 mg PO BID [facility] Last Admin: 07/15/18 09:56 Dose: 20 mg Heparin Sodium (Porcine) (Heparin Na) 5,000 unit SC Q8 [facility] Last Admin: 07/15/18 06:11 Dose: 5,000 unit Dextrose () 1,000 mls @ 100 mls/hr IV .Q10H [facility] Last Admin: 07/15/18 10:06 Dose: 100 mls/hr Valproic Acid 1,000 mg/ (Dextrose) 60 mls @ 50 mls/hr IV X1 ONE Stop: 07/15/18 13:11 Levetiracetam (Keppra Tablet) 1,000 mg PO BID [facility] Last Admin: 07/15/18 09:57 Dose: 1,000 mg Levothyroxine Sodium (Synthroid) 150 mcg PO DAILY@0600 [facility] Last Admin: 07/15/18 06:11 Dose: 150 mcg Lorazepam (Ativan) 2 mg IV PRN PRN PRN Reason: SEIZURES Magnesium Hydroxide (Milk Of Magnesia) 30 ml PO DAILY PRN PRN PRN Reason: Constipation Melatonin (Melatonin) 15 mg PO QHS [facility] Last Admin: 07/14/18 20:49 Dose: 15 mg Multivitamins/Minerals (Multivitamin With Minerals) 1 tablet PO DAILY@0800 [facility] Last Admin: 07/15/18 09:57 Dose: 1 tablet Nicotine (Nicoderm Cq (Pbkc)) 21 mg TRANSDERM. DAILY [facility] Last Admin: 07/15/18 09:57 Dose: Not Given Ondansetron HCl (Zofran) 4 mg IV Q8H PRN PRN PRN Reason: NAUSEA Pantoprazole Sodium (Protonix) 40 mg PO DAILY [facility] Last Admin: 07/15/18 09:56 Dose: 40 mg Psyllium Hydrophilic Mucilloid (Metamucil) 1 packet PO DAILY PRN PRN PRN Reason: CONSTIPATION Risperidone (Risperdal) 1 mg PO QHS [facility] Last Admin: 07/14/18 20:50 Dose: 1 mg Risperidone (Risperdal) 0.5 mg PO DAILY [facility] Last Admin: 07/15/18 09:58 Dose: Not Given Rizatriptan Benzoate (Maxalt) 10 mg PO .X1 PRN PRN PRN Reason: MIGRAINE SYMPTOMS Last Admin: 07/15/18 10:48 Dose: 10 mg Sertraline HCl (Zoloft) 50 mg PO DAILY [facility] Last Admin: 07/15/18 09:57 Dose: 50 mg Sodium Chloride () 5 - 15 ml IV UD PRN PRN Reason: SALINE FLUSH Last Admin: 07/15/18 10:06 Dose: 10 ml Medical Necessity - Tobacco Use Smoking Status: Current every day smoker Tobacco Use: Cigarettes Assessment/Plan All Active Problems (Last Reviewed 07/14/18 @ 10:23 by Sander Means MD) Encephalopathy (Acute) Leukocytosis (Acute) Hypotension (Acute) Decreased level of consciousness (Acute) Respiratory failure with hypercapnia (Acute) MRSA pneumonia (Acute) Acute delirium (Acute) Headache (Acute) Gram-negative pneumonia (Resolved) Septic shock (Resolved) Tobacco user (Resolved) 68 year old F with past medical history of COPD, history of PRES syndrome, seizure disorder, last had a seizure in 2017, history of chronic migraines, nocturia hypoxia on 2 L of oxygen at night, RENNY on CPAP who 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 1. Breakthrough seizures, h/o seizures, unclear etiology, No seizures seen since admission. Patient was on Depakote, stable vitals, given Ativan and Keppra, MRI brain could not be done, CT scan of head x 2 has negative. Started on Keppra and continued on Depakote, EEG showed some slowness, Neurology was consulted, Depakote levels are low, 24, and repeat is 32, given Valproic IV 1000mg x 1. 2. Hypothyroidism, on levothyroxine. 3. COPD, continue with breathing treatments as needed, spiriva 4. Nocturnal hypoxia, on 2 L of oxygen at night 5. RENNY on CPap, 10mmHg 6. Dehydration, improved with IV fluids. 7. PRESS syndrome, h/o CVA, ff with neurologist in [facility]. 8. DVT PPx- Heparin SC 9. GI PPx- Famotidine 10. Code status: Full code; is the HCPOA. 11. Disposition: Pending neurology recommendations Code Visit Inpatient E&M: 42467 Subs Hosp L2
[2018-07-15] MEDS: SUMAtriptan 6 MG/0.5 ML Vial SC (21:57)
[2018-07-15] MEDS: Ketorolac 15 MG/ML Vial IV (21:58)
[2018-07-15] MEDS: proMETHazine 25 MG/ML Syringe IV (21:58)
[2018-07-15] MEDS: RisperiDONE 1 MG Tablet PO (21:58)
[2018-07-15] MEDS: MELATONIN 10 MG TABLET 15 MG PO (21:58)
[2018-07-16] VITALS (8 sets, daily range): BP systolic 135–152; BP diastolic 66–74; PULSE 59–82; RESP 16–18; TEMP 36.4–36.9; O2SAT 95–100
[2018-07-16] MEDS: Heparin Injection (Vial) 5,000 UNIT/ML VIAL 5000 UNIT SC ×3 (06:06→22:02)
[2018-07-16] MEDS: Budesonide Respules 0.5 MG/2 ML AMPUL.NEB. INHALATION ×2 (07:26→19:47)
[2018-07-16] MEDS: Ipratropium/Albuterol Sulfate 3 ML AMPUL.NEB INHALATION ×3 (07:26→19:47)
[2018-07-16] MEDS: Famotidine 20 MG Tablet PO (07:55)
[2018-07-16] MEDS: Pantoprazole Sodium 40 MG Tablet PO (07:55)
[2018-07-16] MEDS: Sertraline 50 MG Tablet PO (07:55)
[2018-07-16 08:45] LABS: Bedside Glucose 93 mg/dL (70-110)
--- NOTE | 2018-07-16 11:39 | NURSING ---
pt slept most of am, on CPAP from home and is now awake, ambulating w/ walker and sba w/ motor and generator brush maker-tolerated well, asked to return to bed-will do bedside swallow eval again when pt is up in chair-PT is now going to get pt up in chair
--- NOTE | 2018-07-16 11:42 | PCM.PN.HOSP ---
Subjective: Patient is increasing lethargic earlier today. Was given melatonin, Phenergan, Toradol and Imitrex last night for intractable headache. Vitals remained stable. No other acute events overnight. Phenergan, melatonin have been stopped. Reexamined patient 3 hours later, patient is much awake, sitting in a chair. Has failed a swallow eval earlier on. She is upset that her medications have been put on hold. at the bedside, expressed understanding and said patient is very difficult and will be upset until she gets her medications. Splane that we held back on her sedating medication because of her worsening lethargy this morning. We will slowly reintroduce the medications and monitor her. No other seizures have been seen. Objective: Physical exam: General: Alert, Oriented x3, Cooperative, No apparent distress, - - lethargic HEENT: Atraumatic, PERRLA, EOMI, Normocephalic Oral: Moist Mucosa Neck: Supple, No JVD, Negative Carotid Bruits Lungs: Clear to auscultation, Normal air movement Cardiovascular: Regular rate, Regular Rhythm, Normal S1, Normal S2, No murmurs Abdomen: Bowel Sounds Present, Soft, Non Tender, Non-Distended, No Hepato-splenomegaly Extremities: No edema Skin: No rashes, No breakdown Musculoskeletal: No Tenderness to Palpation of Joints or Extremities Lymphatic: No Cervical, Supraclavicular, or Inguinal Adenopathy Neurological: Cranial nerves II-XII grossly intact, Neuro grossly intact Psych/Mental Status: Normal Affect, Appropriate Vitals/I&O's: Vital Signs Temp Pulse Resp BP Pulse Ox 97.9 F 59 L 16 144/74 H 95 07/16/18 05:58 07/16/18 07:25 07/16/18 07:25 07/16/18 05:58 07/16/18 07:25 Oxygen Flow Rate (L/min) 2 Oxygen Delivery Method Bi-pap Weight: 67.9 kg Body Mass Index (BMI) 22.9 Finger Stick Blood Glucose 108 Intake and Output for Last 24 Hours 07/14/18 07/15/18 07/16/18 23:59 23:59 23:59 Intake Total 1290 / 1290 1829 / 1829 1918 / 1918 Output Total 500 / 500 550 / 550 Balance 790 / 790 1829 / 1829 1368 / 1368 Microbiology Past 72 Hours 07/13/18 15:20 Urine Catheter - [place] Urine Culture - Final Culture exhibits no growth. Laboratory Results 07/16/18 07:52: POC Glucose 93 Current Medications Acetaminophen (Tylenol) 650 mg PO Q4H PRN PRN PRN Reason: HEADACHE Albuterol/Ipratropium (Duoneb) 3 ml INHALATION Q4H PRN PRN PRN Reason: SOB &/OR WHEEZING Albuterol/Ipratropium (Duoneb) 3 ml INHALATION Q6HWA.RT [facility] Last Admin: 07/16/18 07:26 Dose: 3 ml Bisacodyl (Dulcolax) 5 mg PO DAILY PRN PRN PRN Reason: Constipation Budesonide (Pulmicort Aerosol) 0.5 mg INHALATION BID.RT [facility] Last Admin: 07/16/18 07:26 Dose: 0.5 mg Divalproex Sodium (Depakote) 1,000 mg PO BID [facility] Last Admin: 07/16/18 07:53 Dose: 1,000 mg Famotidine (Pepcid) 20 mg PO BID [facility] Last Admin: 07/16/18 07:55 Dose: 20 mg Heparin Sodium (Porcine) (Heparin Na) 5,000 unit SC Q8 [facility] Last Admin: 07/16/18 06:06 Dose: 5,000 unit Dextrose () 1,000 mls @ 100 mls/hr IV .Q10H [facility] Last Admin: 07/16/18 07:26 Dose: 100 mls/hr Levetiracetam (Keppra Tablet) 1,000 mg PO BID [facility] Last Admin: 07/16/18 07:54 Dose: 1,000 mg Levothyroxine Sodium (Synthroid) 150 mcg PO DAILY@0600 [facility] Last Admin: 07/16/18 06:24 Dose: Not Given Lorazepam (Ativan) 2 mg IV PRN PRN PRN Reason: SEIZURES Magnesium Hydroxide (Milk Of Magnesia) 30 ml PO DAILY PRN PRN PRN Reason: Constipation Multivitamins/Minerals (Multivitamin With Minerals) 1 tablet PO DAILY@0800 [facility] Last Admin: 07/16/18 07:52 Dose: Not Given Nicotine (Nicoderm Cq (Pbkc)) 21 mg TRANSDERM. DAILY [facility] Last Admin: 07/16/18 07:53 Dose: 21 mg Ondansetron HCl (Zofran) 4 mg IV Q8H PRN PRN PRN Reason: NAUSEA Pantoprazole Sodium (Protonix) 40 mg PO DAILY [facility] Last Admin: 07/16/18 07:55 Dose: 40 mg Psyllium Hydrophilic Mucilloid (Metamucil) 1 packet PO DAILY PRN PRN PRN Reason: CONSTIPATION Risperidone (Risperdal) 1 mg PO QHS [facility] Last Admin: 07/15/18 21:58 Dose: 1 mg Risperidone (Risperdal) 0.5 mg PO DAILY [facility] Last Admin: 07/16/18 07:55 Dose: Not Given Rizatriptan Benzoate (Maxalt) 10 mg PO .X1 PRN PRN PRN Reason: MIGRAINE SYMPTOMS Last Admin: 07/15/18 10:48 Dose: 10 mg Sertraline HCl (Zoloft) 50 mg PO DAILY [facility] Last Admin: 07/16/18 07:55 Dose: 50 mg Sodium Chloride () 5 - 15 ml IV UD PRN PRN Reason: SALINE FLUSH Last Admin: 07/15/18 21:57 Dose: 10 ml Medical Necessity - Tobacco Use Smoking Status: Current every day smoker Tobacco Use: Cigarettes Assessment/Plan All Active Problems (Last Reviewed 07/14/18 @ 10:23 by Sander Means MD) Encephalopathy (Acute) Leukocytosis (Acute) Hypotension (Acute) Decreased level of consciousness (Acute) Respiratory failure with hypercapnia (Acute) MRSA pneumonia (Acute) Acute delirium (Acute) Headache (Acute) Gram-negative pneumonia (Resolved) Septic shock (Resolved) Tobacco user (Resolved) 68 year old F with past medical history of COPD, history of PRES syndrome, seizure disorder, last had a seizure in 2017, history of chronic migraines, nocturia hypoxia on 2 L of oxygen at night, RENNY on CPAP 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 1. Breakthrough seizures, h/o seizures, unclear etiology, No seizures seen since admission. Patient was on Depakote at home, MRI brain cannot not be done on account of cochlear implant CT scan of head x 2 has negative. Will switch to IV Keppra and Depakote whilst NPO. Depakote level today is 67 2. Dysphagia, functional related to lethargy from previous medications, kept NPO, will be seen by speech therapy, will follow-up. 3. Hypothyroidism, on levothyroxine. 4. COPD, continue with breathing treatments as needed, spiriva 5. Nocturnal hypoxia, on 2 L of oxygen at night 6. RENNY on CPap, 10mmHg 7. Dehydration, improved with IV fluids. 8. PRESS syndrome, h/o CVA, ff with neurologist in [facility]. 9. DVT PPx- Heparin SC 10. GI PPx- Famotidine 11. Code status: Full code; is the HCPOA. 12. Disposition: Pending neurology recommendations Code Visit Inpatient E&M: 84125 Subs Hosp L2
--- NOTE | 2018-07-16 11:48 | PN_ITS ---
Subjective: Patient is increasing lethargic earlier today. Was given melatonin, Phenergan, Toradol and Imitrex last night for intractable headache. Vitals remained stable. No other acute events overnight. Phenergan, melatonin have been stopped. Reexamined patient 3 hours later, patient is much awake, sitting in a chair. Has failed a swallow eval earlier on. She is upset that her medications have been put on hold. at the bedside, expressed understanding and said patient is very difficult and will be upset until she gets her medications. Splane that we held back on her sedating medication because of her worsening lethargy this morning. We will slowly reintroduce the medications and monitor her. No other seizures have been seen. Objective: Physical exam: General: Alert, Oriented x3, Cooperative, No apparent distress, - - lethargic HEENT: Atraumatic, PERRLA, EOMI, Normocephalic Oral: Moist Mucosa Neck: Supple, No JVD, Negative Carotid Bruits Lungs: Clear to auscultation, Normal air movement Cardiovascular: Regular rate, Regular Rhythm, Normal S1, Normal S2, No murmurs Abdomen: Bowel Sounds Present, Soft, Non Tender, Non-Distended, No Hepato- splenomegaly Extremities: No edema Skin: No rashes, No breakdown Musculoskeletal: No Tenderness to Palpation of Joints or Extremities Lymphatic: No Cervical, Supraclavicular, or Inguinal Adenopathy Neurological: Cranial nerves II-XII grossly intact, Neuro grossly intact Psych/Mental Status: Normal Affect, Appropriate Vitals/I&O's: Vital Signs Temp Pulse Resp BP Pulse Ox 97.9 F 59 L 16 144/74 H 95 07/16/18 05:58 07/16/18 07:25 07/16/18 07:25 07/16/18 05:58 07/16/18 07:25 Oxygen Flow Rate (L/min) 2 Oxygen Delivery Method Bi-pap Weight: 67.9 kg Body Mass Index (BMI) 22.9 Finger Stick Blood Glucose 108 Intake and Output for Last 24 Hours 07/14/18 07/15/18 07/16/18 23:59 23:59 23:59 Intake Total 1290 / 1290 1829 / 1829 1918 / 1918 Output Total 500 / 500 550 / 550 Balance 790 / 790 1829 / 1829 1368 / 1368 Microbiology Past 72 Hours 07/13/18 15:20 Urine Catheter - [place] Urine Culture - Final Culture exhibits no growth. Laboratory Results 07/16/18 07:52: POC Glucose 93 Current Medications Acetaminophen (Tylenol) 650 mg PO Q4H PRN PRN PRN Reason: HEADACHE Albuterol/Ipratropium (Duoneb) 3 ml INHALATION Q4H PRN PRN PRN Reason: SOB &/OR WHEEZING Albuterol/Ipratropium (Duoneb) 3 ml INHALATION Q6HWA.RT [facility] Last Admin: 07/16/18 07:26 Dose: 3 ml Bisacodyl (Dulcolax) 5 mg PO DAILY PRN PRN PRN Reason: Constipation Budesonide (Pulmicort Aerosol) 0.5 mg INHALATION BID.RT [facility] Last Admin: 07/16/18 07:26 Dose: 0.5 mg Divalproex Sodium (Depakote) 1,000 mg PO BID [facility] Last Admin: 07/16/18 07:53 Dose: 1,000 mg Famotidine (Pepcid) 20 mg PO BID [facility] Last Admin: 07/16/18 07:55 Dose: 20 mg Heparin Sodium (Porcine) (Heparin Na) 5,000 unit SC Q8 [facility] Last Admin: 07/16/18 06:06 Dose: 5,000 unit Dextrose () 1,000 mls @ 100 mls/hr IV .Q10H [facility] Last Admin: 07/16/18 07:26 Dose: 100 mls/hr Levetiracetam (Keppra Tablet) 1,000 mg PO BID [facility] Last Admin: 07/16/18 07:54 Dose: 1,000 mg Levothyroxine Sodium (Synthroid) 150 mcg PO DAILY@0600 [facility] Last Admin: 07/16/18 06:24 Dose: Not Given Lorazepam (Ativan) 2 mg IV PRN PRN PRN Reason: SEIZURES Magnesium Hydroxide (Milk Of Magnesia) 30 ml PO DAILY PRN PRN PRN Reason: Constipation Multivitamins/Minerals (Multivitamin With Minerals) 1 tablet PO DAILY@0800 [facility] Last Admin: 07/16/18 07:52 Dose: Not Given Nicotine (Nicoderm Cq (Pbkc)) 21 mg TRANSDERM. DAILY [facility] Last Admin: 07/16/18 07:53 Dose: 21 mg Ondansetron HCl (Zofran) 4 mg IV Q8H PRN PRN PRN Reason: NAUSEA Pantoprazole Sodium (Protonix) 40 mg PO DAILY [facility] Last Admin: 07/16/18 07:55 Dose: 40 mg Psyllium Hydrophilic Mucilloid (Metamucil) 1 packet PO DAILY PRN PRN PRN Reason: CONSTIPATION Risperidone (Risperdal) 1 mg PO QHS [facility] Last Admin: 07/15/18 21:58 Dose: 1 mg Risperidone (Risperdal) 0.5 mg PO DAILY [facility] Last Admin: 07/16/18 07:55 Dose: Not Given Rizatriptan Benzoate (Maxalt) 10 mg PO .X1 PRN PRN PRN Reason: MIGRAINE SYMPTOMS Last Admin: 07/15/18 10:48 Dose: 10 mg Sertraline HCl (Zoloft) 50 mg PO DAILY [facility] Last Admin: 07/16/18 07:55 Dose: 50 mg Sodium Chloride () 5 - 15 ml IV UD PRN PRN Reason: SALINE FLUSH Last Admin: 07/15/18 21:57 Dose: 10 ml Medical Necessity - Tobacco Use Smoking Status: Current every day smoker Tobacco Use: Cigarettes Assessment/Plan All Active Problems (Last Reviewed 07/14/18 @ 10:23 by Sander Means MD) Encephalopathy (Acute) Leukocytosis (Acute) Hypotension (Acute) Decreased level of consciousness (Acute) Respiratory failure with hypercapnia (Acute) MRSA pneumonia (Acute) Acute delirium (Acute) Headache (Acute) Gram-negative pneumonia (Resolved) Septic shock (Resolved) Tobacco user (Resolved) 68 year old F with past medical history of COPD, history of PRES syndrome, seizure disorder, last had a seizure in 2017, history of chronic migraines, nocturia hypoxia on 2 L of oxygen at night, RENNY on CPAP 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 1. Breakthrough seizures, h/o seizures, unclear etiology, No seizures seen since admission. Patient was on Depakote at home, MRI brain cannot not be done on account of cochlear implant CT scan of head x 2 has negative. Will switch to IV Keppra and Depakote whilst NPO. Depakote level today is 67 2. Dysphagia, functional related to lethargy from previous medications, kept NPO, will be seen by speech therapy, will follow-up. 3. Hypothyroidism, on levothyroxine. 4. COPD, continue with breathing treatments as needed, spiriva 5. Nocturnal hypoxia, on 2 L of oxygen at night 6. RENNY on CPap, 10mmHg 7. Dehydration, improved with IV fluids. 8. PRESS syndrome, h/o CVA, ff with neurologist in [facility]. 9. DVT PPx- Heparin SC 10. GI PPx- Famotidine 11. Code status: Full code; is the HCPOA. 12. Disposition: Pending neurology recommendations Code Visit Inpatient E&M: 89415 Subs Hosp L2
[2018-07-16 12:05] LABS: Bedside Glucose 110 mg/dL (70-110)
--- NOTE | 2018-07-16 13:09 | PCM.PN.NEU ---
Subjective: now awake and alert, knows she is in the hospital and location.reports headache 11/27 now. - Physical Exam General: Alert, Cooperative Neurological: Cranial nerves II-XII grossly intact, - - left field cut Vital Signs Temp Pulse Resp BP Pulse Ox 36.6 C 70 18 144/74 H 96 07/16/18 05:58 07/16/18 12:39 07/16/18 12:39 07/16/18 05:58 07/16/18 12:39 Oxygen Flow Rate (L/min) 2 Oxygen Delivery Method Room Air Weight: 67.9 kg Body Mass Index (BMI) 22.9 Finger Stick Blood Glucose 108 Intake and Output for Last 24 Hours 07/14/18 07/15/18 07/16/18 23:59 23:59 23:59 Intake Total 1290 / 1290 1829 / 1829 2434 / 2434 Output Total 500 / 500 1050 / 1050 Balance 790 / 790 1829 / 1829 1384 / 1384 Microbiology Past 72 Hours 07/13/18 15:20 Urine Culture - Final Urine Catheter - [place] Culture exhibits no growth. Laboratory Tests Past 24 Hrs 07/16/18 07/16/18 12:50 12:50 Sodium Pending Potassium Pending Chloride Pending Carbon Dioxide Pending Anion Gap Pending BUN Pending Creatinine Pending Est GFR (MDRD) Af Amer Pending Est GFR (MDRD) Non-Af Pending BUN/Creatinine Ratio Pending Glucose Pending Calcium Pending Valproic Acid Pending POC Glucose 07/16/18 07/16/18 11:49 07:52 POC Glucose 110 93 Medical Necessity - Tobacco Use Smoking Status: Current every day smoker Tobacco Use: Cigarettes Assessment/Plan All Active Problems (Last Reviewed 07/14/18 @ 10:23 by Sander Means MD) Encephalopathy (Acute) Leukocytosis (Acute) Hypotension (Acute) Decreased level of consciousness (Acute) Respiratory failure with hypercapnia (Acute) MRSA pneumonia (Acute) Acute delirium (Acute) Headache (Acute) Gram-negative pneumonia (Resolved) Septic shock (Resolved) Tobacco user (Resolved) Seizure, s/p right jillian infarct, history of headaches and medication overuse headache, unclear history of pres, has cochlear implant npo due to dysphagia, change aeds to iv no mri due to cochlear implant no active sz on eeg npo until seen by speech
[2018-07-16] MEDS: 0.9% NaCl Peripheral Flush Adult/Peds IV ×2 (13:35→13:36)
[2018-07-16 13:39] LABS: Valproic Acid (Depakene) Level 67 ug/mL (50-100)
[2018-07-16 13:54] LABS: Anion Gap 9 (5-15); BUN 6 mg/dL (7-18); BUN/Creat Ratio 8.9 RATIO (10-20); Calcium,Total 7.6 mg/dL (8.5-10.1); Chloride 104 mmol/L (98-107); Creatinine, Serum 0.67 mg/dL (0.55-1.02); EST Glomerular Filtration Rate 93 mL/min (>60); Est Glom Filt Rate - Afr Amer 112 mL/min (>60); Estimated Creatinine Clearance 55.82 ml/min; Glucose 87 mg/dL (74-106); Potassium 4.3 mmol/L (3.5-5.1); Sodium Level 136 mmol/L (136-145)
[2018-07-16] MEDS: Ondansetron 4 MG/2 ML Vial IV (16:54)
[2018-07-16] MEDS: levETIRAcetam IV 100 ML 400 MG IV (17:07)
[2018-07-16] MEDS: Ketorolac 15 MG/ML Vial IV (17:08)
[2018-07-16] MEDS: SUMAtriptan 6 MG/0.5 ML Vial SC (18:34)
[2018-07-16] MEDS: Acetaminophen 325 MG Tablet 650 MG PO (23:02)
[2018-07-17] MEDS: levETIRAcetam IV 100 ML 400 MG IV ×2 (00:05→09:37)
[2018-07-17 03:54] VITALS: BP 141/67; PULSE 68; RESP 18; TEMP 36.4; O2SAT 95
[2018-07-17] MEDS: Heparin Injection (Vial) 5,000 UNIT/ML VIAL 5000 UNIT SC ×3 (06:10→21:09)
[2018-07-17 06:32] LABS: Absolute Lymphocyte Count 1.09 X10^3/ul (0.83-4.51); Absolute Neutrophil Count 3.7 X10^3/uL (2.0-7.7); Basophil# 0.04 X10^3/uL; Basophil% 0.7 % (0-1); Eosinophil# 0.41 X10^3/uL; Hematocrit 41.6 % (37-47); Hemoglobin 13.7 g/dl (12.0-15.0); Lymphocyte # 1.09 X10^3/ul (4.0); Lymphocyte % 18.6 % (19-41); Mean Corp Hgb Conc 32.9 g/gl (32-36); Mean Corpuscular Hgb 31.9 pg (27.0-32.0); Mean Corpuscular Volume 96.7 fL (81-99); Mean Platelet Vol. 10.4 fl (6.2-12.0); Monocyte# 0.56 X10^3/uL; Monocyte% 9.6 % (0-10); Neutrophil # 3.72 X10^3/uL (2.7-7.7); Neutrophil % 63.4 % (47-70); Platelet Count 155 K/mm3 (150-450); RBC Distribution Width CV 14.9 % (11.6-14.6); RBC Distribution Width SD 51.8 fl (35.1-43.9); White Blood Count 5.9 K/mm3 (4.4-11.0)
[2018-07-17 06:35] LABS: POSITIVE COUNT NO; POSITIVE DIFFERENTIAL NO; POSITIVE MORPHOLOGY NO
[2018-07-17 06:53] LABS: Anion Gap 9 (5-15); BUN 5 mg/dL (7-18); BUN/Creat Ratio 6.5 RATIO (10-20); Calcium,Total 8.2 mg/dL (8.5-10.1); Chloride 106 mmol/L (98-107); Creatinine, Serum 0.77 mg/dL (0.55-1.02); EST Glomerular Filtration Rate 80 mL/min (>60); Est Glom Filt Rate - Afr Amer 96 mL/min (>60); Estimated Creatinine Clearance 55.82 ml/min; Glucose 84 mg/dL (74-106); Potassium 4.2 mmol/L (3.5-5.1); Sodium Level 137 mmol/L (136-145)
[2018-07-17 06:55] LABS: Valproic Acid (Depakene) Level 95 ug/mL (50-100)
[2018-07-17 07:22] VITALS: PULSE 74; RESP 20; O2SAT 96
[2018-07-17] MEDS: Ipratropium/Albuterol Sulfate 3 ML AMPUL.NEB INHALATION ×2 (07:22→19:13)
[2018-07-17 08:45] LABS: KEPPRA (LEVETIRACETAM) 8.6 ug/mL (10.0-40.0)
--- NOTE | 2018-07-17 09:31 | PCM.PN.HOSP ---
Subjective: Patient was seen and examined. Kept NPO. Will be seen by speech therapist today. No seizures seen overnight Objective: Physical exam: General: Alert, Oriented x3, Cooperative, No apparent distress, - - lethargic HEENT: Atraumatic, PERRLA, EOMI, Normocephalic Oral: Moist Mucosa Neck: Supple, No JVD, Negative Carotid Bruits Lungs: Clear to auscultation, Normal air movement Cardiovascular: Regular rate, Regular Rhythm, Normal S1, Normal S2, No murmurs Abdomen: Bowel Sounds Present, Soft, Non Tender, Non-Distended, No Hepato-splenomegaly Extremities: No edema Skin: No rashes, No breakdown Musculoskeletal: No Tenderness to Palpation of Joints or Extremities Lymphatic: No Cervical, Supraclavicular, or Inguinal Adenopathy Neurological: Cranial nerves II-XII grossly intact, Neuro grossly intact Psych/Mental Status: Normal Affect, Appropriate Vitals/I&O's: Vital Signs Temp Pulse Resp BP Pulse Ox 97.6 F L 74 20 H 141/67 H 96 07/17/18 03:54 07/17/18 07:22 07/17/18 07:22 07/17/18 03:54 07/17/18 07:22 Oxygen Flow Rate (L/min) 2 Oxygen Delivery Method Bi-pap Weight: 68 kg Body Mass Index (BMI) 22.9 Finger Stick Blood Glucose 108 Intake and Output for Last 24 Hours 07/15/18 07/16/18 07/17/18 23:59 23:59 23:59 Intake Total 1829 / 1829 2887 / 2887 1188 / 1188 Output Total 1750 / 1750 700 / 700 Balance 1829 / 1829 1137 / 1137 488 / 488 Microbiology Past 72 Hours 07/13/18 15:20 Urine Catheter - [place] Urine Culture - Final Culture exhibits no growth. Laboratory Results 07/14/18 09:35: Levetiracetam 8.6 L 07/16/18 11:49: POC Glucose 110 07/16/18 12:50: Valproic Acid 67 07/16/18 13:25: Sodium 136, Potassium 4.3, Chloride 104, Carbon Dioxide 23.0, Anion Gap 9, BUN 6 L, Creatinine 0.67, Estim Creat Clear Calc 55.82, Est GFR (MDRD) Af Amer 112, Est GFR (MDRD) Non-Af 93, BUN/Creatinine Ratio 8.9 L, Glucose 87, Calcium 7.6 L 07/17/18 05:55: Sodium 137, Potassium 4.2, Chloride 106, Carbon Dioxide 22.0, Anion Gap 9, BUN 5 L, Creatinine 0.77, Estim Creat Clear Calc 55.82, Est GFR (MDRD) Af Amer 96, Est GFR (MDRD) Non-Af 80, BUN/Creatinine Ratio 6.5 L, Glucose 84, Calcium 8.2 L 07/17/18 06:15: WBC 5.9, RBC 4.30, Hgb 13.7, Hct 41.6, MCV 96.7, MCH 31.9, MCHC 32.9, RDW 14.9 H, RDW Differential 51.8 H, Plt Count 155, MPV 10.4, Immature Gran % (Auto) 0.700, Neut % (Auto) 63.4, Lymph % (Auto) 18.6 L, Beaver % (Auto) 9.6, Eos % (Auto) 7.0 H, Baso % (Auto) 0.7, Absolute Neuts (auto) 3.7, Absolute Lymphs (auto) 1.09, Total Counted Not Reportable 07/17/18 06:15: Valproic Acid 95 Current Medications Acetaminophen (Tylenol) 650 mg PO Q4H PRN PRN PRN Reason: HEADACHE Last Admin: 07/16/18 23:02 Dose: 650 mg Acetaminophen (Tylenol) 650 mg RECTAL Q4H PRN PRN PRN Reason: PAIN Albuterol/Ipratropium (Duoneb) 3 ml INHALATION Q4H PRN PRN PRN Reason: SOB &/OR WHEEZING Albuterol/Ipratropium (Duoneb) 3 ml INHALATION Q6HWA.RT [facility] Last Admin: 07/17/18 07:22 Dose: 3 ml Bisacodyl (Dulcolax) 5 mg PO DAILY PRN PRN PRN Reason: Constipation Budesonide (Pulmicort Aerosol) 0.5 mg INHALATION BID.RT [facility] Last Admin: 07/16/18 19:47 Dose: 0.5 mg Heparin Sodium (Porcine) (Heparin Na) 5,000 unit SC Q8 [facility] Last Admin: 07/17/18 06:10 Dose: 5,000 unit Dextrose () 1,000 mls @ 100 mls/hr IV .Q10H [facility] Last Admin: 07/17/18 06:10 Dose: 100 mls/hr Levetiracetam (Keppra Iv) 100 mls @ 400 mls/hr IV BID [facility] Last Admin: 07/17/18 00:05 Dose: 400 mls/hr Valproic Acid 500 mg/ Dextrose 55 mls @ 55 mls/hr IV Q6 [facility] Last Admin: 07/17/18 06:28 Dose: 55 mls/hr Levothyroxine Sodium (Synthroid) 150 mcg PO DAILY@0600 [facility] Last Admin: 07/17/18 06:12 Dose: Not Given Lorazepam (Ativan) 2 mg IV PRN PRN PRN Reason: SEIZURES Magnesium Hydroxide (Milk Of Magnesia) 30 ml PO DAILY PRN PRN PRN Reason: Constipation Multivitamins/Minerals (Multivitamin With Minerals) 1 tablet PO DAILY@0800 [facility] Last Admin: 07/16/18 07:52 Dose: Not Given Nicotine (Nicoderm Cq (Pbkc)) 21 mg TRANSDERM. DAILY [facility] Last Admin: 07/16/18 07:53 Dose: 21 mg Ondansetron HCl (Zofran) 4 mg IV Q6H PRN PRN PRN Reason: NAUSEA Pantoprazole Sodium (Protonix) 40 mg PO DAILY [facility] Last Admin: 07/16/18 07:55 Dose: 40 mg Psyllium Hydrophilic Mucilloid (Metamucil) 1 packet PO DAILY PRN PRN PRN Reason: CONSTIPATION Risperidone (Risperdal) 1 mg PO QHS [facility] Last Admin: 07/16/18 22:03 Dose: Not Given Risperidone (Risperdal) 0.5 mg PO DAILY [facility] Last Admin: 07/16/18 07:55 Dose: Not Given Rizatriptan Benzoate (Maxalt) 10 mg PO .X1 PRN PRN PRN Reason: MIGRAINE SYMPTOMS Last Admin: 07/15/18 10:48 Dose: 10 mg Sertraline HCl (Zoloft) 50 mg PO DAILY [facility] Last Admin: 07/16/18 07:55 Dose: 50 mg Sodium Chloride () 5 - 15 ml IV UD PRN PRN Reason: SALINE FLUSH Last Admin: 07/16/18 13:36 Dose: 10 ml Medical Necessity - Tobacco Use Smoking Status: Current every day smoker Tobacco Use: Cigarettes Assessment/Plan All Active Problems (Last Reviewed 07/14/18 @ 10:23 by Sander Means MD) Encephalopathy (Acute) Leukocytosis (Acute) Hypotension (Acute) Decreased level of consciousness (Acute) Respiratory failure with hypercapnia (Acute) MRSA pneumonia (Acute) Acute delirium (Acute) Headache (Acute) Gram-negative pneumonia (Resolved) Septic shock (Resolved) Tobacco user (Resolved) 68 year old F with past medical history of COPD, history of PRES syndrome, seizure disorder, last had a seizure in 2017, history of chronic migraines, nocturia hypoxia on 2 L of oxygen at night, RENNY on CPAP who was going to 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 1. Breakthrough seizures, h/o seizures, unclear etiology, No seizures seen since admission. Patient was on Depakote at home, MRI brain cannot not be done on account of cochlear implant CT scan of head x 2 has negative. On Keppra 1000mg BID, depakote 1000mg BID 2. Dysphagia, functional related to lethargy from previous medications, resolved. 3. Hypothyroidism, on levothyroxine. 4. COPD, continue with breathing treatments as needed, spiriva 5. Nocturnal hypoxia, on 2 L of oxygen at night 6. RENNY on CPap, 10mmHg 7. Dehydration, resolved. 8. PRESS syndrome, h/o CVA, ff with neurologist in [facility]. 9. DVT PPx- Heparin SC 10. GI PPx- Famotidine 11. Code status: Full code; is the HCPOA. 12. Disposition: home Code Visit Inpatient E&M: 62057 Subs Hosp L2
[2018-07-17 09:35] VITALS: BP 129/66; PULSE 70; RESP 16; TEMP 36.4; O2SAT 100
[2018-07-17] MEDS: Pantoprazole Sodium 40 MG Tablet PO (09:37)
[2018-07-17] MEDS: Sertraline 50 MG Tablet PO (09:37)
[2018-07-17] MEDS: Multivitamins,Ther W-Minerals Tablet 1 TABLET PO (09:38)
[2018-07-17] MEDS: Ketorolac 15 MG/ML Vial IV (12:46)
[2018-07-17 14:55] VITALS: BP 135/70; PULSE 70; RESP 16; TEMP 36.7; O2SAT 96
--- NOTE | 2018-07-17 15:16 | CASEMGMT ---
VERO BOJORQUEZ in to discuss discharge plans with patient and . states that he is concerned that patient will be home alone and not able to care for self and ambulate safely. Patient states that she would like to go to [facility] if SNF is appropriate. VERO BOJORQUEZ updated patient and family that therapy notes would be reviewed. VERO BOJORQUEZ reviewed therapy notes. Prior to admission patient ambulated modified independent 50ft, today patient ambulated 60ft contact guard minimal assist of 1 and additional therapy recommended. VERO BOJORQUEZ updated MARY Dumont regarding request for placement at discharge.
[2018-07-17] MEDS: 0.9% NaCl Peripheral Flush Adult/Peds IV (16:21)
--- NOTE | 2018-07-17 16:22 | CASEMGMT ---
Social Work: TC to Sandra at [facility]. Sandra aware that patient will need short term placement at D/C and is requesting [facility]. Sandra requesting clinicals be faxed. Clinicals faxed. HUY Cain
[2018-07-17 19:13] VITALS: PULSE 82; RESP 18
[2018-07-17] MEDS: Budesonide Respules 0.5 MG/2 ML AMPUL.NEB. INHALATION (19:13)
[2018-07-17 20:35] VITALS: BP 158/78; PULSE 78; RESP 17; TEMP 36.7; O2SAT 100
[2018-07-17] MEDS: levETIRAcetam 1,000 MG Tablet 1000 MG PO (21:09)
[2018-07-17] MEDS: RisperiDONE 1 MG Tablet PO (21:09)
[2018-07-18] VITALS (8 sets, daily range): BP systolic 134–152; BP diastolic 59–88; PULSE 60–94; RESP 15–20; TEMP 36.8–37.2; O2SAT 92–99
[2018-07-18] MEDS: Heparin Injection (Vial) 5,000 UNIT/ML VIAL 5000 UNIT SC ×2 (05:18→13:32)
[2018-07-18] MEDS: Levothyroxine 150 MCG Tablet PO (05:18)
[2018-07-18] MEDS: Budesonide Respules 0.5 MG/2 ML AMPUL.NEB. INHALATION ×2 (07:33→19:18)
[2018-07-18] MEDS: Ipratropium/Albuterol Sulfate 3 ML AMPUL.NEB INHALATION ×3 (07:33→19:18)
--- NOTE | 2018-07-18 08:56 | CASEMGMT ---
Social Work Note Physician updated this worker that pt wishes to go to [facility] now instead of [facility] as pt can smoke at [facility]. MARY placed a call to Lyubov at [facility] and per Lyubov she thinks she has a bed but will review referral and confirm with this worker if she is able to accept pt today. SW faxed referral to [facility]. SW in to meet with pt. SW introduced self and role at [facility]. Pt is alert and orientated x4. Pt confirms that she would prefer to go to [facility]. SW informed pt that this worker has a call to [facility] to check on bed availability and to see if they are able to accept pt. Pt states that if [facility] doesn't have a bed she would go to [facility]. MARY waiting for call back from Lyubov at [facility]. Plan: SNF pending acceptance Deisy Dumont SALES ENABLEMENT CONSULTANT, ACCESS CLINICIAN
[2018-07-18] MEDS: Sertraline 50 MG Tablet PO (09:06)
[2018-07-18] MEDS: Pantoprazole Sodium 40 MG Tablet PO (09:06)
[2018-07-18] MEDS: levETIRAcetam 1,000 MG Tablet 1000 MG PO (09:08)
[2018-07-18] MEDS: RisperiDONE 0.5 MG Tablet PO (09:09)
[2018-07-18] MEDS: Multivitamins,Ther W-Minerals Tablet 1 TABLET PO (09:09)
[2018-07-18] MEDS: Lisinopril 2.5 MG Tablet PO (10:51)
--- NOTE | 2018-07-18 14:01 | CASEMGMT ---
Social Work Note MARY spoke with Jesusita at [facility] stating she is able to accept pt today. SW updated pt of this. Pt agreeable to [facility] and states she would like her to transport her. Physician updated that pt is able to discharge today. MARY completed [facility] in [facility]. MARY will fax completed discharge paperwork once available. Plan: Discharge to [facility] today Deisy Dumont SOFTWARE RELEASE MANAGER, BUYER LIAISON
--- NOTE | 2018-07-18 16:17 | CASEMGMT ---
Social Work Note MARY placed a call to pt's Evgeny and updated him on acceptance to [facility] and plan for discharge today. Evgeny states he would like transportation set up and prefers [facility]. MARY explained that pt will have to go by wheelchair van and there will be a fee for transportation. Evgeny states understanding. MARY updated from hospital secretary that pt's will be going home after work to get private car and will be transporting pt. MARY placed a call to Jesusita at [facility] and informed her that pt is going to be discharged today and that staff will fax discharge paperwork once completed as this worker is leaving for the day. Jesusita states understanding. MARY provided hospital secretary with green sheet and fax cover sheet to fax to [facility] once discharge paperwork is completed. Per previous notes, this SW has already completed [facility] in [facility]. Original in SNF folder and copy on pt's chart. Plan: Discharge to [facility] today skilled with pt's transporting Deisy Connollyes MAINTENANCE SUPERVISOR ELECTRICAL, REAL ESTATE AGENT/BROKER
--- NOTE | 2018-07-18 19:20 | TREXTCAR_ITS ---
- Diet 07/17/18 09:12 Diet: Regular Diet Food consistency:: Regular Liquid Consistency:: Regular/Thin Is pt able to select menu?: Yes Diet Comments: Seated upright in chair; meds w/ liquids one at a time - Routine Orders/Code Status Enema Type: Fleetz Enema Frequency: Daily PRN Suppository Type: Dulcolax 10mg Suppository Frequency: Daily PRN Routine Lab Work: - - valproic acid level, CMP, ammonia in 1 week - Therapies Weight Bearing: Full weight bearing Physical Therapy: Eval and Treat Occupational Therapy: Eval and Treat Speech Therapy: Eval and Treat - Problem/Diagnosis (1) Breakthrough seizure Status: Acute Current Visit: Yes (2) Nocturnal hypoxia Status: Chronic Comment: On CPAP and O2 at night Current Visit: Yes (3) Dehydration Status: Acute Current Visit: Yes (4) PRES (posterior reversible encephalopathy syndrome) Status: Chronic Current Visit: Yes (5) Acute delirium Status: Resolved Current Visit: No (6) Encephalopathy Status: Acute Current Visit: No (7) Hypotension Status: Resolved Current Visit: No (8) Leukocytosis Status: Acute Current Visit: No (9) MRSA pneumonia Status: Resolved Current Visit: No (10) Respiratory failure with hypercapnia Status: Resolved Current Visit: No (11) Adrenal insufficiency Status: Resolved Current Visit: No (12) COPD (chronic obstructive pulmonary disease) Status: Chronic Current Visit: No (13) Depression Status: Chronic Current Visit: No (14) HTN (hypertension) Status: Chronic Current Visit: No (15) Hypothyroidism Status: Chronic Current Visit: No (16) Mild diastolic dysfunction Status: Chronic Current Visit: No (17) RENNY (obstructive sleep apnea) Status: Chronic Current Visit: No (18) Presbycusis of both ears Status: Chronic Current Visit: No (19) Pulmonary fibrosis Status: Chronic Current Visit: No (20) Restless leg Status: Chronic Current Visit: No (21) Tobacco abuse Status: Chronic Current Visit: No (22) Medication overuse headache Status: Chronic Current Visit: Yes - Allergies/Procedures Done in Hospital Allergies/Adverse Reactions: Allergies Sulfa (Sulfonamide Antibiotics) Adverse Reaction (Intermediate, Verified 07/13/18 14:52) Other - Messes with blood counts prochlorperazine edisylate [From Compazine] Adverse Reaction (Mild, Verified 07/13/18 14:52) Other - Restless legs prochlorperazine maleate [From Compazine] Adverse Reaction (Mild, Verified 07/13/18 14:52) Other - Restless legs Procedures: Electroencephalogram - Mild slowing with no epileptiform changes - Type of Care/Length of Stay Estimated LOS: Convalescent Care Less Than 30 days Type of Care Needed: Skilled Rehab Potential: Good Prognosis: Good - Additional Orders/Day of Discharge H&P will serve as current which was dated: 07/13/18 Day of Discharge: 07/18/18 - Dietary and Speech Recommendations Dietitian Recommendations/Changes: Rec therapeutic diet change to Cardiac with texture/consistency as per speech. - Follow Up Care Primary Care Physician: Vin Baca DO [Primary Care Provider] - Please follow up with your Primary Care Physician in: Following discharge from [facility] Please Follow Up With: Dr. Traylor When: in 1 month
--- NOTE | 2018-07-18 19:27 | PCM.DC.SUM ---
Discharge Date and Diagnosis - Problem List Patient Problems: Active and Suspected Problems (Last Reviewed 07/14/18 @ 10:23 by Sander Means MD) Breakthrough seizure (Acute) Dehydration (Acute) Date of Admission: 07/13/18 Date of Discharge: 07/18/18 - Primary Discharge Diagnosis Active and Suspected Problems (Last Reviewed 07/14/18 @ 10:23 by Sander Means MD) Breakthrough seizure (Acute) Dehydration (Acute) Dysphagia - related to lethargy from medications as OP - Secondary Discharge Diagnosis Chronic Problems (Last Reviewed 07/14/18 @ 10:23 by Sander Means MD) Nocturnal hypoxia (Chronic) On CPAP and O2 at night PRES (posterior reversible encephalopathy syndrome) (Chronic) Medication overuse headache (Chronic) Tobacco abuse (Chronic) RENNY (obstructive sleep apnea) (Chronic) Mild diastolic dysfunction (Chronic) Depression (Chronic) Restless leg (Chronic) HTN (hypertension) (Chronic) Presbycusis of both ears (Chronic) COPD (chronic obstructive pulmonary disease) (Chronic) Hypothyroidism (Chronic) Pulmonary fibrosis (Chronic) Cochlear implant hx Hospital Course and Treatment Imaging Results: Clinical Impression(s) from Imaging Studies Chest X-Ray 07/13/18 14:26 IMPRESSION: Poor inspiratory effort with bibasilar crowding. No acute consolidating infiltrate or pulmonary edema. Electronically Signed: Justino Hale MD at 15:05 EST , Service support , Brain CT 07/13/18 14:29 IMPRESSION: 1. Chronic involutional and ischemic changes of the brain, as described. No acute intracranial pathology. 2. Changes of prior partial left mastoidectomy and cochlear implant again noted. N.B. : The above information has been verbally conveyed by Justino Hale MD to Morelia Casas AA, on 07/13/2018 14:54:51 (ET). Electronically Signed: Justino Hale MD at 14:56 EST , Service support , ADDENDUM: 07/13/18 1503 IMPRESSION: 1. Chronic involutional and ischemic changes of the brain, as described. No acute intracranial pathology. 2. Changes of prior partial left mastoidectomy and cochlear implant again noted. N.B. : The above information has been verbally conveyed by Justino Hale MD to Morelia Casas AA, on 07/13/2018 14:54:51 (ET). Electronically Signed: Justino Hale MD at 14:56 EST , Service support , Brain CT 07/15/18 08:38 IMPRESSION: 1. No acute intracranial hemorrhage or evolving infarction. 2. Stable right parietal and occipital lobe infarctions (since 05/16/2018). 3. Central parenchymal volume loss. White matter changes that are nonspecific but most commonly associated with chronic small vessel ischemic disease. Electronically Signed: Bob Angulo MD at 10:02 EST , Service support , Microbiology 07/13/18 15:20 Urine Catheter - [place] Urine Culture - Final Culture exhibits no growth. Dr. Sander Means-neurology Operations: None Procedures: Electroencephalogram - Mild slowing with no epileptiform discharges Summary of Care Provided: The patient is a 68 year old F with a past medical history of seizure disorder, ischemic CVAs, PRES syndrome, COPD, struct of sleep apnea, nocturnal hypoxemia, hypothyroidism, chronic headaches with medication overuse, depression, tobacco dependence and pulmonary fibrosis who presented to the emergency department at [facility] on 07/13/2018 complaining of 3 seizures that day. Her stated she had been taking multiple qoen-kww-pzeozax medications for pain and that she had 2 episodes of emesis that a.m. She was afebrile and the blood pressure was increased at 190/99 presentation to the emergency room. Respiratory rate was 36 and her pulse ox was 96% on room air. White blood cell count was elevated at 13.1, likely secondary to stress of breakthrough seizures. Hemoglobin was increased at 14.2 secondary to dehydration/volume depletion. UA was unremarkable and the BMP was unremarkable. Chest x-ray showed no pleural effusions, infiltrates or pulmonary vascular congestion. CT brain showed chronic involutional and ischemic changes of the brain and evidence of partial left mastoidectomy and cochlear implant. There was encephalomalacia in the medial right parietal lobe and the medial cortical margin of the right occipital lobe which was unchanged from previous studies. She was admitted to the intensive care unit and the seizure protocol was initiated. Dr. Means from neurology was consulted. Gentle hydration was ordered. Valproate sodium was increased to 1000 mg p.o. twice daily and Keppra was increased to 1000 mg p.o. twice daily. An EEG was ordered that showed mild slowing with no epileptiform discharges. She had no seizures in the hospital. She failed a bedside swallowing evaluation and she was seen by and approved for regular textures and thin liquids but, must take her medications one at a time and must be sitting upright at 90 degrees when eating and remain so for at least 30 minutes after she finishes eating. She was seen in consultation by physical therapy and they felt she had impaired ambulation status, impaired bed mobility and impaired transfer ability. She has decreased strength and decreased functional activity tolerance and they recommended continued therapy. On 07/18/2018 she was afebrile with stable vital signs. Blood pressure had been consistently mildly elevated and she was started on lisinopril 2.5 mg daily and her blood pressure following the first dose was 134/71 at discharge. She was discharged to [facility] for continued PT/OT/speech therapy prior to returning home with her . She will follow-up with Dr. Traylor, her neurologist in 1 month. Will check a valproic acid level, ammonia and CMP in 1 week. Would avoid restarting all the pain medication she was taking at home, neurology feels her CORTEZ's now are related to medication overuse. PHYSICAL EXAM: GENERAL: alert, oriented X 3, Cooperative, NAD, awoke her from sleep and she was alert and appropriate ORAL: moist mucosa, no mucosal lesions NECK: No JVD, supple, trachea midline LUNGS: CTA, symmetric chest expansion, diminished BS's, no conversational dyspnea, not tachypneic HEART: RRR, Normal S1 and S2, no rub, no gallop ABDOMEN: soft, NT, ND, BS present, no guarding with palpation EXTREMITIES: no edema, no cyanosis, no calf tenderness SKIN: No rashes, no breakdown NEUROLOGIC: no focal neurologic deficits PSYCH: appropriate, normal affect, pleasant This note was generated with Dragon dictation software. It may contain incorrect words, spelling, and punctuation that were not noted in checking the note before signing. Patient Problems: Active and Suspected Problems (Last Reviewed 07/14/18 @ 10:23 by Sander Means MD) Breakthrough seizure (Acute) Dehydration (Acute) - Physical Exam Vital Signs Temp Pulse Resp BP Pulse Ox 99.0 F 79 18 134/71 H 99 07/18/18 17:21 07/18/18 17:21 07/18/18 17:21 07/18/18 17:21 07/18/18 17:21 Oxygen Flow Rate (L/min) 2 Oxygen Delivery Method Room Air Weight: 150 lb 9.211 oz Body Mass Index (BMI) 22.9 Finger Stick Blood Glucose 108 Intake and Output for Last 24 Hours 07/16/18 07/17/18 07/18/18 23:59 23:59 23:59 Intake Total 2887 / 2887 2940 / 2940 210 / 210 Output Total 1750 / 1750 2600 / 2600 400 / 400 Balance 1137 / 1137 340 / 340 -190 / -190 Home Medications: Medications to take at Discharge Pantoprazole Sodium [Protonix] 40 mg PO DAILY 08/23/16 albuterol sulfate HFA 90 mcg/actuation aerosol inhaler 2 puff INHALATION Q4H PRN g 06/16/17 budesonide-formoterol HFA 160 mcg-4.5 mcg/actuation aerosol inhaler 2 inh INHALATION Q12H #10.2 g 09/28/17 Risperidone [Risperdal] 0.5 mg PO DAILY 12/14/17 Ropinirole HCl [Requip] 0.5 - 1 mg PO QHS 12/14/17 Sertraline HCl [Zoloft] 50 mg PO DAILY 12/14/17 melatonin 10 mg capsule 15 mg PO QHS 12/29/17 Rizatriptan Benzoate [Maxalt] 10 mg PO .X1 PRN PRN 02/05/18 tiotropium bromide 2.5 mcg/actuation mist for inhalation 2 puff INHALATION DAILY #4 g 04/13/18 Levothyroxine Sodium [Synthroid] 150 mcg PO DAILY 05/16/18 Multivit-Min/Iron/Folic/Lutein [Centrum Silver Women Tablet] 1 tab PO DAILY 05/16/18 Naproxen Sodium [Aleve] 220 mg PO PRN PRN 05/16/18 Risperidone 1 mg PO QHS 07/13/18 Acetaminophen [Tylenol Tablet] 650 mg PO Q4H PRN PRN tablet 07/18/18 Bisacodyl [Dulcolax] 5 mg PO DAILY PRN PRN tablet 07/18/18 Ipratropium/Albuterol Sulfate [Duoneb] 3 ml INHALATION Q4H PRN PRN ampul.neb 07/18/18 Lisinopril [Zestril] 2.5 mg PO DAILY tablet 07/18/18 Nicotine [Nicoderm Cq] 21 mg TRANSDERM. DAILY patch 07/18/18 Valproate Sodium [Depakene] 1,000 mg PO BID udc 07/18/18 levETIRAcetam tablet [Keppra tablet] 1,000 mg PO BID tablet 07/18/18 Primary Care Physician: Vin Baca DO [Primary Care Provider] - Please follow up with your Primary Care Physician in: Following discharge from [facility] Please Follow Up With: Dr. Traylor When: in 1 month Minutes spent on discharge:: 40 Patient Condition:: Stable Medical Necessity - Tobacco Use Smoking Status: Current every day smoker Tobacco Use: Cigarettes Meaningful Use Info Meaningful Use Diagnoses (Choose all that apply): None applicable Code Visit Inpatient E&M: 88579 Disch Hosp
--- NOTE | 2018-07-18 19:31 | NURSING ---
Report called to Audi the receiving nurse.
--- NOTE | 2018-07-18 19:44 | DS.PCM_ITS ---
Discharge Date and Diagnosis - Problem List Patient Problems: Active and Suspected Problems (Last Reviewed 07/14/18 @ 10:23 by Sander Means MD) Breakthrough seizure (Acute) Dehydration (Acute) Date of Admission: 07/13/18 Date of Discharge: 07/18/18 - Primary Discharge Diagnosis Active and Suspected Problems (Last Reviewed 07/14/18 @ 10:23 by Sander Means MD) Breakthrough seizure (Acute) Dehydration (Acute) Dysphagia - related to lethargy from medications as OP - Secondary Discharge Diagnosis Chronic Problems (Last Reviewed 07/14/18 @ 10:23 by Sander Means MD) Nocturnal hypoxia (Chronic) On CPAP and O2 at night PRES (posterior reversible encephalopathy syndrome) (Chronic) Medication overuse headache (Chronic) Tobacco abuse (Chronic) RENNY (obstructive sleep apnea) (Chronic) Mild diastolic dysfunction (Chronic) Depression (Chronic) Restless leg (Chronic) HTN (hypertension) (Chronic) Presbycusis of both ears (Chronic) COPD (chronic obstructive pulmonary disease) (Chronic) Hypothyroidism (Chronic) Pulmonary fibrosis (Chronic) Cochlear implant hx Hospital Course and Treatment Imaging Results: Clinical Impression(s) from Imaging Studies Chest X-Ray 07/13/18 14:26 IMPRESSION: Poor inspiratory effort with bibasilar crowding. No acute consolidating infiltrate or pulmonary edema. Electronically Signed: Justino Hale MD at 15:05 EST , Service support , Brain CT 07/13/18 14:29 IMPRESSION: 1. Chronic involutional and ischemic changes of the brain, as described. No acute intracranial pathology. 2. Changes of prior partial left mastoidectomy and cochlear implant again noted. N.B. : The above information has been verbally conveyed by Justino Hale MD to Morelia Casas AA, on 07/13/2018 14:54:51 (ET). Electronically Signed: Justino Hale MD at 14:56 EST , Service support , ADDENDUM: 07/13/18 1503 IMPRESSION: 1. Chronic involutional and ischemic changes of the brain, as described. No acute intracranial pathology. 2. Changes of prior partial left mastoidectomy and cochlear implant again noted. N.B. : The above information has been verbally conveyed by Justino Hale MD to Morelia Casas AA, on 07/13/2018 14:54:51 (ET). Electronically Signed: Justino Hale MD at 14:56 EST , Service support , Brain CT 07/15/18 08:38 IMPRESSION: 1. No acute intracranial hemorrhage or evolving infarction. 2. Stable right parietal and occipital lobe infarctions (since 05/16/2018). 3. Central parenchymal volume loss. White matter changes that are nonspecific but most commonly associated with chronic small vessel ischemic disease. Electronically Signed: Bob Angulo MD at 10:02 EST , Service support , Microbiology 07/13/18 15:20 Urine Catheter - [place] Urine Culture - Final Culture exhibits no growth. Dr. Sander Means-neurology Operations: None Procedures: Electroencephalogram - Mild slowing with no epileptiform discharges Summary of Care Provided: The patient is a 68 year old F with a past medical history of seizure disorder, ischemic CVAs, PRES syndrome, COPD, struct of sleep apnea, nocturnal hypoxemia, hypothyroidism, chronic headaches with medication overuse, depression, tobacco dependence and pulmonary fibrosis who presented to the emergency department at [facility] on 07/13/2018 complaining of 3 seizures that day. Her stated she had been taking multiple hcsf-dlh-sdflevu medications for pain and that she had 2 episodes of emesis that a.m. She was afebrile and the blood pressure was increased at 190/99 presentation to the emergency room. Respiratory rate was 36 and her pulse ox was 96% on room air. White blood cell count was elevated at 13.1, likely secondary to stress of breakthrough seizures. Hemoglobin was increased at 14.2 secondary to dehydration/volume depletion. UA was unremarkable and the BMP was unremarkable. Chest x-ray showed no pleural effusions, infiltrates or pulmonary vascular congestion. CT brain showed chronic involutional and ischemic changes of the brain and evidence of partial left mastoidectomy and cochlear implant. There was encephalomalacia in the medial right parietal lobe and the medial cortical margin of the right occipital lobe which was unchanged from previous studies. She was admitted to the intensive care unit and the seizure protocol was initiated. Dr. Means from neurology was consulted. Gentle hydration was ordered. Valproate sodium was increased to 1000 mg p.o. twice daily and Keppra was increased to 1000 mg p.o. twice daily. An EEG was ordered that showed mild slowing with no epileptiform discharges. She had no seizures in the hospital. She failed a bedside swallowing evaluation and she was seen by and approved for regular textures and thin liquids but, must take her medications one at a time and must be sitting upright at 90 degrees when eating and remain so for at least 30 minutes after she finishes eating. She was seen in consultation by physical therapy and they felt she had impaired ambulation status, impaired bed mobility and impaired transfer ability. She has decreased strength and decreased functional activity tolerance and they recommended continued therapy. On 07/18/2018 she was afebrile with stable vital signs. Blood pressure had been consistently mildly elevated and she was started on lisinopril 2.5 mg daily and her blood pressure following the first dose was 134/71 at discharge. She was discharged to [facility] for continued PT/OT/speech therapy prior to returning home with her . She will follow-up with Dr. Traylor, her neurologist in 1 month. Will check a valproic acid level, ammonia and CMP in 1 week. Would avoid restarting all the pain medication she was taking at home, neurology feels her CORTEZ's now are related to medication overuse. PHYSICAL EXAM: GENERAL: alert, oriented X 3, Cooperative, NAD, awoke her from sleep and she was alert and appropriate ORAL: moist mucosa, no mucosal lesions NECK: No JVD, supple, trachea midline LUNGS: CTA, symmetric chest expansion, diminished BS's, no conversational dyspnea, not tachypneic HEART: RRR, Normal S1 and S2, no rub, no gallop ABDOMEN: soft, NT, ND, BS present, no guarding with palpation EXTREMITIES: no edema, no cyanosis, no calf tenderness SKIN: No rashes, no breakdown NEUROLOGIC: no focal neurologic deficits PSYCH: appropriate, normal affect, pleasant This note was generated with Dragon dictation software. It may contain incorrect words, spelling, and punctuation that were not noted in checking the note before signing. Patient Problems: Active and Suspected Problems (Last Reviewed 07/14/18 @ 10:23 by Sander Means MD) Breakthrough seizure (Acute) Dehydration (Acute) - Physical Exam Vital Signs Temp Pulse Resp BP Pulse Ox 99.0 F 79 18 134/71 H 99 07/18/18 17:21 07/18/18 17:21 07/18/18 17:21 07/18/18 17:21 07/18/18 17:21 Oxygen Flow Rate (L/min) 2 Oxygen Delivery Method Room Air Weight: 150 lb 9.211 oz Body Mass Index (BMI) 22.9 Finger Stick Blood Glucose 108 Intake and Output for Last 24 Hours 07/16/18 07/17/18 07/18/18 23:59 23:59 23:59 Intake Total 2887 / 2887 2940 / 2940 210 / 210 Output Total 1750 / 1750 2600 / 2600 400 / 400 Balance 1137 / 1137 340 / 340 -190 / -190 Home Medications: Medications to take at Discharge Pantoprazole Sodium [Protonix] 40 mg PO DAILY 08/23/16 albuterol sulfate HFA 90 mcg/actuation aerosol inhaler 2 puff INHALATION Q4H PRN g 06/16/17 budesonide-formoterol HFA 160 mcg-4.5 mcg/actuation aerosol inhaler 2 inh INHALATION Q12H #10.2 g 09/28/17 Risperidone [Risperdal] 0.5 mg PO DAILY 12/14/17 Ropinirole HCl [Requip] 0.5 - 1 mg PO QHS 12/14/17 Sertraline HCl [Zoloft] 50 mg PO DAILY 12/14/17 melatonin 10 mg capsule 15 mg PO QHS 12/29/17 Rizatriptan Benzoate [Maxalt] 10 mg PO .X1 PRN PRN 02/05/18 tiotropium bromide 2.5 mcg/actuation mist for inhalation 2 puff INHALATION DAILY #4 g 04/13/18 Levothyroxine Sodium [Synthroid] 150 mcg PO DAILY 05/16/18 Multivit-Min/Iron/Folic/Lutein [Centrum Silver Women Tablet] 1 tab PO DAILY 05/16/18 Naproxen Sodium [Aleve] 220 mg PO PRN PRN 05/16/18 Risperidone 1 mg PO QHS 07/13/18 Acetaminophen [Tylenol Tablet] 650 mg PO Q4H PRN PRN tablet 07/18/18 Bisacodyl [Dulcolax] 5 mg PO DAILY PRN PRN tablet 07/18/18 Ipratropium/Albuterol Sulfate [Duoneb] 3 ml INHALATION Q4H PRN PRN ampul.neb 07/18/18 Lisinopril [Zestril] 2.5 mg PO DAILY tablet 07/18/18 Nicotine [Nicoderm Cq] 21 mg TRANSDERM. DAILY patch 07/18/18 Valproate Sodium [Depakene] 1,000 mg PO BID udc 07/18/18 levETIRAcetam tablet [Keppra tablet] 1,000 mg PO BID tablet 07/18/18 Primary Care Physician: Vin Baca DO [Primary Care Provider] - Please follow up with your Primary Care Physician in: Following discharge from [facility] Please Follow Up With: Dr. Traylor When: in 1 month Minutes spent on discharge:: 40 Patient Condition:: Stable Medical Necessity - Tobacco Use Smoking Status: Current every day smoker Tobacco Use: Cigarettes Meaningful Use Info Meaningful Use Diagnoses (Choose all that apply): None applicable Code Visit Inpatient E&M: 03218 Disch Hosp
[2018-07-18] MEDS: 0.9% NaCl Peripheral Flush Adult/Peds IV (19:47)
== END 2018-07-18 20:10 | disposition skilled nursing facility (03) | DRG 101 ==
LOC: ED 14:26 → ICU 16:15 → MS3 07-14 09:03
PROVIDERS: Internal Medicine Critical Care Medicine; Psychiatry & Neurology Neurology; Admitting Provider Internal Medicine; Emergency Provider Emergency Medicine; Family Provider Family Medicine; PCP Family Medicine; Referring Provider Internal Medicine; Visit Provider Internal Medicine
DX: G40.909 Epilepsy, unspecified, not intractable, without status epilepticus (principal); I69.354 Hemiplegia and hemiparesis following cerebral infarction affecting left non-dominant side; E03.9 Hypothyroidism, unspecified; G47.33 Obstructive sleep apnea (adult) (pediatric); J44.9 Chronic obstructive pulmonary disease, unspecified; G25.81 Restless legs syndrome; Z79.899 Other long term (current) drug therapy; F17.210 Nicotine dependence, cigarettes, uncomplicated; Z96.21 Cochlear implant status; E86.0 Dehydration; F32.9 Major depressive disorder, single episode, unspecified; H91.13 Presbycusis, bilateral; J84.10 Pulmonary fibrosis, unspecified; I10 Essential (primary) hypertension; R53.83 Other fatigue; T50.905A Adverse effect of unspecified drugs, medicaments and biological substances, initial encounter; R13.10 Dysphagia, unspecified; G44.40 Drug-induced headache, not elsewhere classified, not intractable
CPT/HCPCS: 36415; 36591; 36600; 51702; 70450; 71045; 80048; 80164; 80177; 81001; 82803; 82962; 84484; 85025; 87086; 92526; 93005; 94640; 94762; 95819; 97110; 97162; 97166; 97530; 99285; 99406; J7030; A4216; J2405; J3030; J3490

== ENCOUNTER → 2018-09-12 13:32 | Outpatient (CLI) | payer MEDICARE, OTHER, SELFPAY ==
[2018-07-13 16:17] VITALS: BMI 22.9
[2018-09-12 14:50] LABS: AST(SGOT) 18 U/L (15-37); Alanine Aminotransfer ALT/SGPT 20 U/L (13-56); Albumin, Serum 3.5 g/dL (3.2-5.0); Alkaline Phosphatase 95 U/L (45-117); Bilirubin, Direct 0.15 mg/dL (0.00-0.30); Globulin 3.6 g/dL (2.2-4.2); Protein, Total 7.1 g/dL (6.4-8.2)
== END ==
PROVIDERS: Family Provider Family Medicine; PCP Family Medicine; Referring Provider Internal Medicine Endocrinology, Diabetes & Metabolism
DX: R26.9 Unspecified abnormalities of gait and mobility (principal); R56.9 Unspecified convulsions
CPT/HCPCS: 36591; 80076; 82140; A4216

== ENCOUNTER 2018-09-27 18:34 | Inpatient (IN) | payer MEDICARE, OTHER, SELFPAY ==
[2018-07-13 16:17] VITALS: BMI 22.9
[2018-09-27] VITALS (11 sets, daily range): BP systolic 102–121; BP diastolic 51–69; PULSE 98–119; RESP 22–36; TEMP 36.6–38; O2SAT 93–100; BMI 22.4; BMI 21.7
--- NOTE | 2018-09-27 18:53 | EKG12_ITS ---
Test Reason : CONFUSION Blood Pressure : / mmHG Vent. Rate : 116 BPM Atrial Rate : 116 BPM P-R Int : 128 ms QRS Dur : 070 ms QT Int : 302 ms P-R-T Axes : 080 024 065 degrees QTc Int : 419 ms Sinus tachycardia Possible Inferior infarct , age undetermined Abnormal ECG Confirmed by SUNIL YEUNG, MORTEZA ([id number]), movie editor MADELEINE SEXTON ([id number]) on 10/02/2018 4:30:08 PM Referred By: Lesli Brantley Confirmed By:MORTEZA BARBER MD
--- NOTE | 2018-09-27 18:55 | RAD_ITS ---
STUDY: X-RAY CHEST REASON FOR EXAM: Female, 68 years old. Fever, confusion. TECHNIQUE: Portable chest. COMPARISON: 07/13/2018. FINDINGS: Right-sided port is unchanged in position. Hazy opacity is noted in the left midlung. There is mild opacity in the right lung base. There is no demonstrated pleural abnormality. Normal size heart. Normal mediastinum and brandon. Normal visualized pulmonary arteries. Normal visualized aortic arch and descending thoracic aorta. Soft tissues and bony structures are unremarkable. RAD/Chest 1 View (Portable) IMPRESSION: 1. Hazy opacity in the left midlung is consistent with pneumonia. Follow-up to resolution is advised to exclude underlying mass. 2. Atelectasis is favored over pneumonic infiltrate in the right lung base. Electronically Signed: Lo Barton MD at 19:31 EDT Tel , Service support ,
[2018-09-27 19:01] LABS: Bedside Glucose 113 mg/dL (70-110)
[2018-09-27 19:18] LABS: Bacteria 0 SEEN /hpf (None Seen); Mucous, Urine 0 SEEN /hpf (<or=2+); White Blood Cells 0 SEEN /hpf (0-5)
[2018-09-27 19:19] LABS: Color, Urine Yellow (Yellow); Glucose, Dipstick Normal (Normal); Ketone-Dipstick Negative (Negative); Leukocyte Esterase-Dipstick 25 /ul (Negative); Nitrite-Dipstick Negative (Negative); Occult Blood-Urine 10 /ul (Negative); Protein-Dipstick Negative (Negative); Specific Gravity, Urine 1.015 (1.002-1.030); Urine Bilirubin Dipstick Negative (Negative); Urine Clarity Clear (Clear); Urine Urobilinogen 4 mg/dl (Normal)
[2018-09-27] MEDS: 0.9% Normal Saline 1,000 ML 150 ML IV (19:48)
[2018-09-27 19:54] LABS: Absolute Lymphocyte Count 1.26 X10^3/ul (0.83-4.51); Absolute Neutrophil Count 11.8 X10^3/uL (2.0-7.7); Basophil# 0.02 X10^3/uL; Basophil% 0.1 % (0-1); Eosinophil# 0.03 X10^3/uL; Eosinophils% 0.2 % (0-5); Hematocrit 33.6 % (37-47); Hemoglobin 10.9 g/dl (12.0-15.0); Lymphocyte # 1.26 X10^3/ul (4.0); Mean Corp Hgb Conc 32.4 g/gl (32-36); Mean Corpuscular Volume 98.5 fL (81-99); Mean Platelet Vol. 9.7 fl (6.2-12.0); Monocyte% 5.7 % (0-10); Neutrophil % 84.5 % (47-70); Platelet Count 170 K/mm3 (150-450); RBC Distribution Width SD 53.9 fl (35.1-43.9); Red Blood Count 3.41 M/mm3 (4.2-5.4)
[2018-09-27 19:55] LABS: Differential Indicated SCAN CRITERIA MET; POSITIVE COUNT NO; POSITIVE DIFFERENTIAL NO; POSITIVE MORPHOLOGY YES
--- NOTE | 2018-09-27 19:57 | ED.DCSUM_ITS ---
- ER Visit Summary Date of Service: 09/27/18 Chief Complaint: Confusion History of Present Illness: The patient is a 68 F who presents the emergency department with confusion. states that she is currently at [place]. He states that he saw her around 1300 hrs. today. She seemed fine. He came to see her again at around 1630 hours. He states that therapy said that she seemed more weak than normal. She has developed a cough for the past several days. He tells me that when he saw her it required 2 people to lift her off the commode. She was confused not following commands normally. She was shaking. He was told that she had a low-grade temperature and was given Tylenol. She was then transferred to the emergency department. Here she was noted to have a temperature of 100.4 orally. He states that her mental status is significantly improved. She has a history of pulmonary fibrosis and COPD. She is also has a history of MRSA pneumonia. Physical Examination: Temperature 100.4 tachycardic tachypneic Gen: Well-nourished well-developed Head: Normocephalic atraumatic Eyes: Perrl EOMI ENT: TMs clear no rhinorrhea moist mucous membranes Neck: Supple no lymphadenopathy no JVD nontender CVS: Regular rate tachycardic rhythm no murmurs normal S1-S2 Respiratory: Tachypneic moist cough with rhonchi that improve with cough bilaterally chest nontender Abdomen: Soft nontender nondistended normal bowel sounds no masses Back: Nontender Extremity: Nontender no edema Skin: Normal color no rash Neuro: alert orientated ?3 CN II-XII intact normal strength sensation Psych: Blunted affect Test Results: Chest x-ray is concerning for bilateral infiltrate. Emergency Department Course and Treatment: [] Impression: [] This note was generated with [employer] dictation software. It may contain incorrect words, spelling, and punctuation that were not noted in review of the chart prior to signing ED Disposition - Plan for ED Patient: Referrals: Vin Baca DO [Primary Care Provider] -
[2018-09-27 20:03] LABS: International Normalized Ratio 1.1; Prothrombin Time (Protime)PT. 13.9 SECONDS (11.7-14.9)
[2018-09-27 20:04] LABS: Partial Thromboplast Time 53.6 Seconds (24.1-36.2)
[2018-09-27 20:08] LABS: Red Blood Cells-Urine 0-5 SEEN /hpf (0-5); Squamous Epithelial Cells - UA 0-5 SEEN /hpf (5-10)
[2018-09-27 20:12] LABS: Lactic Acid 0.7 mmol/L (0.4-2.0)
[2018-09-27 20:16] LABS: ALB/GLOB Ratio 0.6 RATIO (0.9-2.4); AST(SGOT) 23 U/L (15-37); Alanine Aminotransfer ALT/SGPT 20 U/L (13-56); Albumin, Serum 2.7 g/dL (3.2-5.0); Alkaline Phosphatase 121 U/L (45-117); Anion Gap 7 (5-15); BUN 13 mg/dL (7-18); BUN/Creat Ratio 16.9 RATIO (10-20); Calcium,Total 8.3 mg/dL (8.5-10.1); Chloride 110 mmol/L (98-107); Creatinine, Serum 0.77 mg/dL (0.55-1.02); EST Glomerular Filtration Rate 80 mL/min (>60); Est Glom Filt Rate - Afr Amer 97 mL/min (>60); Estimated Creatinine Clearance 55.82 ml/min; Globulin 4.2 g/dL (2.2-4.2); Glucose 108 mg/dL (74-106); Potassium 3.6 mmol/L (3.5-5.1); Protein, Total 6.9 g/dL (6.4-8.2); Sodium Level 138 mmol/L (136-145)
[2018-09-27 20:29] LABS: Valproic Acid (Depakene) Level 74 ug/mL (50-100)
[2018-09-27] MEDS: Ipratropium/Albuterol Sulfate 3 ML AMPUL.NEB INHALATION (20:29)
--- NOTE | 2018-09-27 20:42 | ED.RN ---
HOSPITALIST PAGED FOR ADMISSION
--- NOTE | 2018-09-27 20:50 | HP.PCM_ITS ---
Problem List (1) Sepsis Status: Acute Qualifiers: Sepsis type: sepsis due to unspecified organism Qualified Code(s): A41.9 - Sepsis, unspecified organism (2) Pneumonia Status: Acute Qualifiers: Pneumonia type: due to unspecified organism Laterality: bilateral Lung location: unspecified part of lung Qualified Code(s): J18.9 - Pneumonia, unspecified organism (3) Encephalopathy acute Status: Acute (4) Anxiety and depression Status: Chronic (5) Tobacco abuse Status: Chronic (6) RENNY (obstructive sleep apnea) Status: Chronic (7) Restless leg Status: Chronic (8) HTN (hypertension) Status: Chronic Qualifiers: Hypertension type: essential hypertension (9) COPD (chronic obstructive pulmonary disease) Status: Chronic Qualifiers: COPD type: unspecified COPD Qualified Code(s): J44.9 - Chronic obstructive pulmonary disease, unspecified; J44.9 - Chronic obstructive pulmonary disease, unspecified; J44.9 - Chronic obstructive pulmonary disease, unspecified; J44.9 - Chronic obstructive pulmonary disease, unspecified (10) Hypothyroidism Status: Chronic Qualifiers: Hypothyroidism type: unspecified Qualified Code(s): E03.9 - Hypothyroidism, unspecified (11) Pulmonary fibrosis Status: Chronic History of Present Illness Date of Admission: 09/27/18 Chief Complaint: Fever, cough, confusion The patient is a 68 y/o F from SNF w/ PMHx: Chronic Anemia, Chronic COPD w/ Chronic Hypoxic Respiratory Failure (2L q HS), Pulmonary Fibrosis, Tobacco use, HTN, HLD, RENNY on q HS CPAP, Hypothyroidism, Adrenal Insufficiency, Anxiety and Depression, Chronic Back Pain, RLS, Seizure disorder who presents to the [facility] ED on 09/27/18 with history of onset ~ 12 hours of progressively worsening confusion, mildly productive cough, dyspnea, malaise with onset low-grade temperatures prompting transition to the ED for evaluation. [facility] she has resumed tobacco cigarette usage. Work-up in the ED included T 99.9, heart rate 118, BP 115/56, respiratory rate initially 36 with improvement to 22, 98% on 2 L nasal cannula, CBC with WBC 14, heme globin 10.9, platelet 170 with left shift, coags not mar ked appearing, CMP with chloride 110, glucose 108, lactic acid 0.7, troponin less than 0.015, UA unremarkable for infection, valproic acid level 74, culture x2 pending per ED, chest x-ray with hazy opacity left mid lung as well as right lung base possibly also atelectasis. The ED patient administered normal saline, vancomycin, Zosyn, DuoNeb. Past Medical History Past Medical History (Chronic Problems): Chronic Problems (Last Reviewed 07/14/18 @ 10:23 by Sander Means MD) Nocturnal hypoxia (Chronic) On CPAP and O2 at night PRES (posterior reversible encephalopathy syndrome) (Chronic) Medication overuse headache (Chronic) Anxiety and depression (Chronic) Tobacco abuse (Chronic) RENNY (obstructive sleep apnea) (Chronic) Mild diastolic dysfunction (Chronic) Depression (Chronic) Restless leg (Chronic) HTN (hypertension) (Chronic) Presbycusis of both ears (Chronic) COPD (chronic obstructive pulmonary disease) (Chronic) Hypothyroidism (Chronic) Pulmonary fibrosis (Chronic) Medical History: Medical History (Last Reviewed 07/14/18 @ 10:23 by Sander Means MD) Encephalopathy (Acute) G93.40 Leukocytosis (Acute) D72.829 RENNY (obstructive sleep apnea) (Chronic) G47.33 Mild diastolic dysfunction (Chronic) I51.9 Depression (Chronic) F32.9 Restless leg (Chronic) HTN (hypertension) (Chronic) I10 Presbycusis of both ears (Chronic) H91.13 COPD (chronic obstructive pulmonary disease) (Chronic) J44.9 Hypothyroidism (Chronic) E03.9 Pulmonary fibrosis (Chronic) J84.10 COPD with acute exacerbation J44.1 Gallstones K80.20 Septic shock A41.9, R65.21 UTI (urinary tract infection) N39.0 Anxiety F41.9 Bronchitis J40 Carpal tunnel syndrome G56.00 Cataract H26.9 Chronic back pain M54.9, G89.29 Migraine G43.909 Osteopenia M85.80 Solitary pulmonary nodule R91.1 Stage 2 moderate COPD by GOLD classification J44.9 Tobacco abuse Z72.0 Acute delirium (Resolved) R41.0 Acute respiratory failure J96.00 Adrenal insufficiency (Resolved) E27.40 H/O: hysterectomy Z98.890, Z90.710 Hypersomnia G47.10 Hypotension (Resolved) I95.9 MRSA pneumonia (Resolved) J15.212 Respiratory failure with hypercapnia (Resolved) J96.92 Allergies Sulfa (Sulfonamide Antibiotics) Adverse Reaction (Intermediate, Verified 07/13/18 14:52) Other - Messes with blood counts prochlorperazine edisylate [From Compazine] Adverse Reaction (Mild, Verified 07/13/18 14:52) Other - Restless legs prochlorperazine maleate [From Compazine] Adverse Reaction (Mild, Verified 07/13/18 14:52) Other - Restless legs Home Medications: Ambulatory Orders Medication Instructions Recorded RX: Pantoprazole Sodium [Protonix] 40 mg PO DAILY 08/23/16 albuterol sulfate HFA 90 2 puff INHALATION Q4H PRN g 06/16/17 mcg/actuation aerosol inhaler budesonide-formoterol HFA 160 2 inh INHALATION Q12H #10.2 g 09/28/17 mcg-4.5 mcg/actuation aerosol inhaler RX: Risperidone [Risperdal] 0.5 mg PO DAILY 12/14/17 RX: Ropinirole HCl [Requip] 0.5 - 1 mg PO QHS 12/14/17 RX: Sertraline HCl [Zoloft] 50 mg PO DAILY 12/14/17 melatonin 10 mg capsule 15 mg PO QHS 12/29/17 RX: Rizatriptan Benzoate [Maxalt] 10 mg PO .X1 PRN PRN 02/05/18 tiotropium bromide 2.5 2 puff INHALATION DAILY #4 g 04/13/18 mcg/actuation mist for inhalation RX: Levothyroxine Sodium 150 mcg PO DAILY 05/16/18 [Synthroid] RX: Multivit-Min/Iron/Folic/Lutein 1 tab PO DAILY 05/16/18 [Centrum Silver Women Tablet] RX: Naproxen Sodium [Aleve] 220 mg PO PRN PRN 05/16/18 RX: Risperidone 1 mg PO QHS 07/13/18 RX: Acetaminophen [Tylenol Tablet] 650 mg PO Q4H PRN PRN tablet 07/18/18 RX: Bisacodyl [Dulcolax] 5 mg PO DAILY PRN PRN tablet 07/18/18 RX: Ipratropium/Albuterol Sulfate 3 ml INHALATION Q4H PRN PRN 07/18/18 [Duoneb] ampul.neb RX: Lisinopril [Zestril] 2.5 mg PO DAILY tablet 07/18/18 RX: Nicotine [Nicoderm Cq] 21 mg TRANSDERM. DAILY patch 07/18/18 RX: Valproate Sodium [Depakene] 1,000 mg PO BID udc 07/18/18 RX: levETIRAcetam tablet [Keppra 1,000 mg PO BID tablet 07/18/18 tablet] Surgical History: Surgical History (Last Reviewed 07/14/18 @ 10:24 by Sander Means MD) Cochlear implant in place Z96.21 Dr Andrade 2014 H/O adenoidectomy Z98.890, Z90.89 History of cataract surgery Z98.49 History of cholecystectomy Z98.890, Z90.49 History of lung biopsy Z98.890 Hx of appendectomy Z98.890, Z90.49 Hx of left knee surgery Z98.890 joint lipoma removal vocal nodules removed Surgical History: appendectomy, cholecystectomy, hysterectomy, total hip arthroplasty - Right, - - thyroidectomy and BL intraocular lens implants,cochear implant Psychiatric History: Anxiety, Depression, - - Suspected narcotic dependence. [employer] History: No pertinent [employer] history Lives: Intermediate Smoking Status: Current every day smoker Tobacco Use: Cigarettes Alcohol: None Drugs: None - *Family History Maternal Family History: Family History (Last Reviewed 07/14/18 @ 10:24 by Sander Means MD) Mother Hypertension CVA (cerebral vascular accident) Father CVA (cerebral vascular accident) Hypertension Sister Colon cancer Grandfather Hypertension Heart disease History Items: Heart Disease, Stroke Paternal Family History: Family History (Last Reviewed 07/14/18 @ 10:24 by Sander Means MD) Mother Hypertension CVA (cerebral vascular accident) Father CVA (cerebral vascular accident) Hypertension Sister Colon cancer Grandfather Hypertension Heart disease History Items: Heart Disease, Stroke Sibling Family History: Family History (Last Reviewed 07/14/18 @ 10:24 by Sander Means MD) Mother Hypertension CVA (cerebral vascular accident) Father CVA (cerebral vascular accident) Hypertension Sister Colon cancer Grandfather Hypertension Heart disease History Items: - - sister with colon cancer Review of Systems Constitutional: Reports: Anorexia, Fever, Malaise, Weakness, Fatigue. Denies: Chills, Weight Change HEENT: Reports: Sore Throat. Denies: Head Aches, Sinus Congestion, Sinus Drainage Cardiovascular: Denies: Chest Pain, Chest Pressure, Chest Tightness, Light Headedness, Orthopnea, Palpitations, Syncope Respiratory: Reports: Cough, Shortness of breath upon exertion, Sputum produ ction. Denies: Shortness of breath at rest, Wheezing Gastrointestinal: Denies: Abdominal Pain, Nausea, Vomiting Genitourinary: Denies: Dysuria Musculoskeletal: Reports: Back Pain. Denies: Joint Pain, Joint Tenderness Skin: Denies: Rash, Wounds Neurological: Reports: Confusion. Denies: Focal weakness, Numbness, Tingling Psychiatric: Reports: Anxiety, Depression. Denies: Homicidal Ideations, Suicidal Ideations Hematologic/ Lymphatic: Reports: Anemia, Easy Bruising, Easy Bleeding VTE Information - Inpt Only VTE Present on Admission: No VTE Mechan Device Prophylaxis: SCD's VTE Pharm Prophylaxis ordered?: Yes Patient Problems: Active and Suspected Problems (Last Reviewed 07/14/18 @ 10:23 by Sander banegas MD) Sepsis (Acute) Pneumonia (Acute) Encephalopathy acute (Acute) Subjective: Patient seated upright in ED bed, notes headache ongoing otherwise no acute complaints, occasional coughing, more oriented. Objective: Physical Examination: General: awake, alert, oriented to self, place, recent events, improving since initial presentation, remains cooperative, seated upright in the ED bed in no apparent distress, fatigued appearance. Skin: normal color, turgor, no icterus, cyanosis. HEENT: AT/NC, EOMI, PERRLA, dry MM, no carotid bruits or JVD noted. Lungs: Diminished breath sounds throughout, greater bilateral bases, crackles bases suspected secondary to patient underlying pulmonary fibrosis, mildly rhonchorous bilateral bases as well, no wheezing. Heart: Tachycardic with regular rhythm; no gallop, rub audible. Abdomen: soft, NTTP, ND, normal BS, no HSM. Extremities: no cyanosis, clubbing, or edema. Neurological: patient awake, alert, oriented noted; cognitive function proving, not baseline intact; pupils equally reactive to light and accomodation; cranial nerves II-XII grossly normal, moving all 4 extremities, no focal deficits, strength moderately to severely globally decreased secondary to acute presentation. Psychiatric: affect appears fatigued, no acute evidence of depressive or anxiety feelings. - Physical Exam Vital Signs Temp Pulse Resp BP Pulse Ox 97.9 F 109 H 22 H 121/52 H 99 09/27/18 20:12 09/27/18 20:30 09/27/18 20:30 09/27/18 20:12 09/27/18 20:12 Oxygen Flow Rate (L/min) 2 Oxygen Delivery Method Nasal Cannula Weight: 147 lb 7.828 oz Body Mass Index (BMI) 22.4 Finger Stick Blood Glucose 113 Laboratory Tests Past 24 Hrs 09/27/18 09/27/18 09/27/18 19:12 19:36 19:36 WBC 14.0 H RBC 3.41 L Hgb 10.9 L Hct 33.6 L MCV 98.5 MCH 32.0 MCHC 32.4 RDW 15.0 H RDW Differential 53.9 H Plt Count 170 MPV 9.7 Immature Gran % (Auto) 0.500 Neut % (Auto) 84.5 H Lymph % (Auto) 9.0 L [place] % (Auto) 5.7 Eos % (Auto) 0.2 Baso % (Auto) 0.1 Absolute Neuts (auto) 11.8 H Absolute Lymphs (auto) 1.26 Total Counted Not Reportable PT 13.9 INR 1.1 APTT 53.6 H Sodium Potassium Chloride Carbon Dioxide Anion Gap BUN Creatinine Estim Creat Clear Calc Est GFR (MDRD) Af Amer Est GFR (MDRD) Non-Af BUN/Creatinine Ratio Glucose Lactic Acid Calcium Total Bilirubin AST ALT Alkaline Phosphatase Troponin I Total Protein Albumin Globulin Albumin/Globulin Ratio Urine Color Yellow Urine Clarity Clear Urine pH 8.0 Ur Specific [place] 1.015 Urine Protein Negative Urine Glucose (UA) Normal Urine Ketones Negative Urine Occult Blood 10 H Urine Nitrite Negative Urine Bilirubin Negative Urine Urobilinogen 4 H Ur Leukocyte Esterase 25 H Urine RBC 0-5 SEEN Urine WBC 0 SEEN Ur Squamous Epith Cells 0-5 SEEN Urine Bacteria 0 SEEN Urine Mucus 0 SEEN Valproic Acid 09/27/18 09/27/18 09/27/18 19:36 19:36 19:37 WBC RBC Hgb Hct MCV MCH MCHC RDW RDW Differential Plt Count MPV Immature Gran % (Auto) Neut % (Auto) Lymph % (Auto) [place] % (Auto) Eos % (Auto) Baso % (Auto) Absolute Neuts (auto) Absolute Lymphs (auto) Total Counted PT INR APTT Sodium 138 Potassium 3.6 Chloride 110 H Carbon Dioxide 21.0 Anion Gap 7 BUN 13 Creatinine 0.77 Estim Creat Clear Calc 55.82 Est GFR (MDRD) Af Amer 97 Est GFR (MDRD) Non-Af 80 BUN/Creatinine Ratio 16.9 Glucose 108 H Lactic Acid 0.7 Calcium 8.3 L Total Bilirubin 0.40 AST 23 ALT 20 Alkaline Phosphatase 121 H Troponin I < 0.015 Total Protein 6.9 Albumin 2.7 L Globulin 4.2 Albumin/Globulin Ratio 0.6 L Urine Color Urine Clarity Urine pH Ur Specific [place] Urine Protein Urine Glucose (UA) Urine Ketones Urine Occult Blood Urine Nitrite Urine Bilirubin Urine Urobilinogen Ur Leukocyte Esterase Urine RBC Urine WBC Ur Squamous Epith Cells Urine Bacteria Urine Mucus Valproic Acid 74 POC Glucose 09/27/18 18:44 POC Glucose 113 H Assessment/Plan All Active Problems (Last Reviewed 07/14/18 @ 10:23 by Sander Means MD) Breakthrough seizure (Acute) Dehydration (Acute) Sepsis (Acute) Pneumonia (Acute) Encephalopathy acute (Acute) Encephalopathy (Acute) Leukocytosis (Acute) Acute delirium (Resolved) Adrenal insufficiency (Resolved) Gram-negative pneumonia (Resolved) Hypotension (Resolved) MRSA pneumonia (Resolved) Respiratory failure with hypercapnia (Resolved) Septic shock (Resolved) Tobacco user (Resolved) The patient is a 68 y/o F from SNF w/ PMHx: Chronic Anemia, Chronic COPD w/ Chronic Hypoxic Respiratory Failure (2L q HS), Pulmonary Fibrosis, Tobacco use, HTN, HLD, RENNY on q HS CPAP, Hypothyroidism, Adrenal Insufficiency, Anxiety and Depression, Chronic Back Pain, RLS, Seizure disorder who presents to the [facility] ED on 09/27/18 with history of onset ~ 12 hours of progressively worsening confusion, mildly productive cough, dyspnea, malaise with onset low-grade temperatures prompting transition to the ED for evaluation. (1) Acute Encephalopathy secondary to Acute Sepsis secondary to HCAP, Hx MRSA PNA prior: Aspiration/Community Acquired/HCAP Pneumonia: Will admit to [facility] w/ tele, maintain on oxygen with wean as tolerated to home oxygen supplementation, continue ATC duonebs, PRN albuterol, maintained on IV Zosyn and Vancomycin, HOB, IS parameters w/ pending sputum cultures, respiratory viral panel and urine antigens. Bld cx x 2 obtained in the ED. (2) Chronic COPD, Pulmonary Fibrosis w/ Chronic Hypoxic Respiratory Failure: W ill maintain on home oxygen supplementation, continue ATC duonebs, PRN albuterol, HOB, IS parameters. (3) Chronic Anemia: Admission Hgb 10.9, prior most recently 12-13; however, baseline from 2017 noted 9-10 baseline, repeat in AM. (4) Hypertension: Continue home regimen including lisinopril, PRN hydralazine. (5) Tobacco Abuse: Encouraged cessation, inpatient consultation per RT, NR if desired. (6) Seizure disorder: Continue home Keppra regimen. (7) Hypothyroidism: Continue home synthroid regimen. (8) Anxiety and depression, possibly bipolar disorder: Continue home regimen Zoloft, Depakote and Risperdal. Normal Depakote level. (9) RENNY: Continue home CPAP nightly. (10) RLS: Continue home Requip regimen. (11) GERD: PPI. (12) DVT prophylaxis: SCDs, Lovenox. Code Visit Inpatient E&M: 48738 Init Hosp L3
[2018-09-27] MEDS: Vancomycin IV 1,000 MG/200 ML BAG 200 MG IV (21:14)
[2018-09-27 22:11] LABS: Magnesium 2.3 mg/dL (1.6-2.6)
[2018-09-27] MEDS: Acetaminophen 325 MG Tablet 650 MG PO (22:33)
--- NOTE | 2018-09-27 22:53 | PCM.RX.CS ---
Consult Pharmacy has been consulted to manage selected antiobiotic: Vancomycin Type of Consult: New start Suspected Infection: Pneumonia Prior Doses of Antibiotics Received/Current Regimen: Medications Discontinued Medications Vancomycin HCl (Vancomycin) 1,000 mg in 200 mls @ 200 mls/hr IV X1 ONE Stop: 09/27/18 20:59 Last Admin: 09/27/18 21:14 Dose: 200 mls/hr Labs: Sodium 138 mmol/L (136-145) 09/27/18 19:36 Potassium 3.6 mmol/L (3.5-5.1) 09/27/18 19:36 Chloride 110 mmol/L (98-107) H 09/27/18 19:36 Carbon Dioxide 21.0 mmol/L (21.0-32.0) 09/27/18 19:36 Anion Gap 7 (5-15) 09/27/18 19:36 BUN 13 mg/dL (7-18) 09/27/18 19:36 Creatinine 0.77 mg/dL (0.55-1.02) 09/27/18 19:36 Est GFR (MDRD) Af Amer 97 mL/min (>60) 09/27/18 19:36 Est GFR (MDRD) Non-Af 80 mL/min (>60) 09/27/18 19:36 BUN/Creatinine Ratio 16.9 RATIO (10-20) 09/27/18 19:36 Glucose 108 mg/dL (74-106) H 09/27/18 19:36 Microbiology: Microbiology 09/27/18 Unknown Urine, Clean Catch Streptococcus pneumoniae Antigen (M - Final 09/27/18 Unknown Urine, Clean Catch Legionella Antigen - Final Weight used for dosin kg Estimated Creatinine Clearance: 56ML/MIN Goal Trough: 10-15 mcg/mL Pharmacy Plan for Drug Dosing: PLAN/RECOMMENDATIONS 1. Vancomycin 500mg IV Q12hr per protocol to start 09/28/18 @0900 2. Trough scheduled prior to 4th total dose of vancomycin 09/29/18 @0830 3. Pharmacy Service will continue to monitor and adjust dosing as required.
[2018-09-27] MEDS: MELATONIN 10 MG TABLET 15 MG PO (23:02)
[2018-09-27] MEDS: guaiFENesin 1,200 MG Tablet 1200 MG PO (23:02)
[2018-09-28] VITALS (19 sets, daily range): BP systolic 85–110; BP diastolic 43–59; PULSE 71–89; RESP 16–24; TEMP 36.4–36.9; O2SAT 92–98
[2018-09-28] MEDS: 0.9% NaCl Peripheral Flush Adult/Peds IV ×4 (05:58→09:00)
[2018-09-28] MEDS: Levothyroxine 150 MCG Tablet PO (06:06)
[2018-09-28 06:29] LABS: Absolute Lymphocyte Count 0.73 X10^3/ul (0.83-4.51); Absolute Neutrophil Count 11.1 X10^3/uL (2.0-7.7); Basophil# 0.01 X10^3/uL; Basophil% 0.1 % (0-1); Eosinophil# 0.07 X10^3/uL; Eosinophils% 0.5 % (0-5); Hematocrit 30.4 % (37-47); Hemoglobin 9.7 g/dl (12.0-15.0); Lymphocyte # 0.73 X10^3/ul (4.0); Lymphocyte % 5.2 % (19-41); Mean Corp Hgb Conc 31.9 g/gl (32-36); Mean Corpuscular Hgb 31.7 pg (27.0-32.0); Mean Corpuscular Volume 99.3 fL (81-99); Mean Platelet Vol. 9.9 fl (6.2-12.0); Neutrophil # 11.05 X10^3/uL (2.7-7.7); Neutrophil % 78.8 % (47-70); Platelet Count 156 K/mm3 (150-450); RBC Distribution Width CV 14.8 % (11.6-14.6); RBC Distribution Width SD 51.7 fl (35.1-43.9); Red Blood Count 3.06 M/mm3 (4.2-5.4)
[2018-09-28 06:33] LABS: Differential Indicated SCAN CRITERIA MET; POSITIVE COUNT NO; POSITIVE DIFFERENTIAL YES; POSITIVE MORPHOLOGY NO
[2018-09-28 06:49] LABS: Anion Gap 6 (5-15); BUN 8 mg/dL (7-18); BUN/Creat Ratio 11.2 RATIO (10-20); Calcium,Total 7.8 mg/dL (8.5-10.1); Chloride 117 mmol/L (98-107); Creatinine, Serum 0.71 mg/dL (0.55-1.02); EST Glomerular Filtration Rate 87 mL/min (>60); Est Glom Filt Rate - Afr Amer 105 mL/min (>60); Estimated Creatinine Clearance 55.82 ml/min; Glucose 88 mg/dL (74-106); Potassium 3.6 mmol/L (3.5-5.1); Sodium Level 145 mmol/L (136-145)
--- NOTE | 2018-09-28 06:57 | PN_ITS ---
Patient Problems: Active and Suspected Problems (Last Reviewed 07/14/18 @ 10:23 by Sander Means MD) Sepsis (Acute) Pneumonia (Acute) Encephalopathy acute (Acute) Subjective: The patient is a 68-year-old female from a assisted facility with a past medical history of chronic anemia, chronic COPD with chronic hypoxic respiratory failure, pulmonary fibrosis, tobacco dependence, hypertension, hyperlipidemia, RENNY on CPAP, hypothyroidism, adrenal insufficiency, anxiety/depression, chronic back pain restless leg syndrome and seizure disorder who presented to the [facility] emergency department on 09/27/2018 with a history of approximately 12 hours of progressively worsening confusion with cough, dyspnea and malaise. Vital signs in the ER were temperature 99.9, heart rate 118, blood pressure 115/56, respiratory rate 36 and she was 98% saturated on a 2 L nasal cannula. White blood cell count was 14 with a left shift. Hemoglobin is 10.9 and platelets were 170,000. Lactic acid was 0.7 and troponin was less than 0.015. BUN was 8 and the creatinine was 0.71. UA had 0 WBC. Chest x-ray was consistent with poor inspiratory effort however there is an infiltrate in the left mid lung and infiltrate versus atelectasis in the bases. She was admitted to the hospital with a diagnosis of severe sepsis with acute encephalopathy secondary to HCAP. Was started on Zosyn and vancomycin and the initial doses were given in the emergency department. All events of the past 24 hours of been reviewed. T-max was 100.4 ?F. Current temp is 98.2. Tachycardia has resolved and her current blood pressure is 102/59. Respiratory rate is 20 and she is 95% saturated on a 2 L nasal cannula. White blood cell count is once again 14 with 79% neutrophils. Hemoglobin is 9.7 and platelets are 156,000. BMP is unremarkable. Respiratory panel was negative. Blood cultures are pending. Streptococcal and Legionella antigens in the urine were negative. - Physical Exam Vital Signs Temp Pulse Resp BP Pulse Ox 98.2 F 79 20 H 102/59 L 95 09/28/18 06:00 09/28/18 06:00 09/28/18 06:00 09/28/18 06:00 09/28/18 06:00 Oxygen Flow Rate (L/min) 2 Oxygen Delivery Method Nasal Cannula Weight: 142 lb 10.225 oz Body Mass Index (BMI) 21.7 Finger Stick Blood Glucose 113 Intake and Output for Last 24 Hours 09/26/18 09/27/18 09/28/18 23:59 23:59 23:59 Intake Total 970 / 970 Output Total 200 / 200 600 / 600 Balance -200 / -200 370 / 370 Microbiology Past 72 Hours 09/27/18 22:50 Respiratory Panel (PCR) - Final Mucosa - Nasopharyngeal 09/27/18 Unknown Streptococcus pneumoniae Antigen (M - Final Urine, Clean Catch 09/27/18 Unknown Legionella Antigen - Final Urine, Clean Catch Laboratory Tests Past 24 Hrs 09/27/18 09/27/18 09/27/18 19:12 19:36 19:36 WBC 14.0 H RBC 3.41 L Hgb 10.9 L Hct 33.6 L MCV 98.5 MCH 32.0 MCHC 32.4 RDW 15.0 H RDW Differential 53.9 H Plt Count 170 MPV 9.7 Immature Gran % (Auto) 0.500 Neut % (Auto) 84.5 H Lymph % (Auto) 9.0 L [place] % (Auto) 5.7 Eos % (Auto) 0.2 Baso % (Auto) 0.1 Absolute Neuts (auto) 11.8 H Absolute Lymphs (auto) 1.26 Total Counted Not Reportable PT 13.9 INR 1.1 APTT 53.6 H Sodium Potassium Chloride Carbon Dioxide Anion Gap BUN Creatinine Estim Creat Clear Calc Est GFR (MDRD) Af Amer Est GFR (MDRD) Non-Af BUN/Creatinine Ratio Glucose Lactic Acid Calcium Magnesium Total Bilirubin AST ALT Alkaline Phosphatase Troponin I Total Protein Albumin Globulin Albumin/Globulin Ratio Urine Color Yellow Urine Clarity Clear Urine pH 8.0 Ur Specific [place] 1.015 Urine Protein Negative Urine Glucose (UA) Normal Urine Ketones Negative Urine Occult Blood 10 H Urine Nitrite Negative Urine Bilirubin Negative Urine Urobilinogen 4 H Ur Leukocyte Esterase 25 H Urine RBC 0-5 SEEN Urine WBC 0 SEEN Ur Squamous Epith Cells 0-5 SEEN Urine Bacteria 0 SEEN Urine Mucus 0 SEEN Valproic Acid 09/27/18 09/27/18 09/27/18 19:36 19:36 19:36 WBC RBC Hgb Hct MCV MCH MCHC RDW RDW Differential Plt Count MPV Immature Gran % (Auto) Neut % (Auto) Lymph % (Auto) [place] % (Auto) Eos % (Auto) Baso % (Auto) Absolute Neuts (auto) Absolute Lymphs (auto) Total Counted PT INR APTT Sodium 138 Potassium 3.6 Chloride 110 H Carbon Dioxide 21.0 Anion Gap 7 BUN 13 Creatinine 0.77 Estim Creat Clear Calc 55.82 Est GFR (MDRD) Af Amer 97 Est GFR (MDRD) Non-Af 80 BUN/Creatinine Ratio 16.9 Glucose 108 H Lactic Acid 0.7 Calcium 8.3 L Magnesium 2.3 Total Bilirubin 0.40 AST 23 ALT 20 Alkaline Phosphatase 121 H Troponin I < 0.015 Total Protein 6.9 Albumin 2.7 L Globulin 4.2 Albumin/Globulin Ratio 0.6 L Urine Color Urine Clarity Urine pH Ur Specific [place] Urine Protein Urine Glucose (UA) Urine Ketones Urine Occult Blood Urine Nitrite Urine Bilirubin Urine Urobilinogen Ur Leukocyte Esterase Urine RBC Urine WBC Ur Squamous Epith Cells Urine Bacteria Urine Mucus Valproic Acid 09/27/18 09/28/18 09/28/18 19:37 06:00 06:00 WBC 14.0 H RBC 3.06 L Hgb 9.7 L Hct 30.4 L MCV 99.3 H MCH 31.7 MCHC 31.9 L RDW 14.8 H RDW Differential 51.7 H Plt Count 156 MPV 9.9 Immature Gran % (Auto) 0.400 Neut % (Auto) 78.8 H Lymph % (Auto) 5.2 L [place] % (Auto) 15.0 H Eos % (Auto) 0.5 Baso % (Auto) 0.1 Absolute Neuts (auto) 11.1 H Absolute Lymphs (auto) 0.73 L Total Counted Pending PT INR APTT Sodium Pending Potassium Pending Chloride Pending Carbon Dioxide Pending Anion Gap Pending BUN Pending Creatinine Pending Estim Creat Clear Calc Est GFR (MDRD) Af Amer Pending Est GFR (MDRD) Non-Af Pending BUN/Creatinine Ratio Pending Glucose Pending Lactic Acid Calcium Pending Magnesium Total Bilirubin AST ALT Alkaline Phosphatase Troponin I Total Protein Albumin Globulin Albumin/Globulin Ratio Urine Color Urine Clarity Urine pH Ur Specific [place] Urine Protein Urine Glucose (UA) Urine Ketones Urine Occult Blood Urine Nitrite Urine Bilirubin Urine Urobilinogen Ur Leukocyte Esterase Urine RBC Urine WBC Ur Squamous Epith Cells Urine Bacteria Urine Mucus Valproic Acid 74 POC Glucose 09/27/18 18:44 POC Glucose 113 H Medical Necessity - Tobacco Use Smoking Status: Current every day smoker Tobacco Use: Cigarettes Assessment/Plan All Active Problems (Last Reviewed 07/14/18 @ 10:23 by Sander Means MD) Breakthrough seizure (Acute) Dehydration (Acute) Sepsis (Acute) Pneumonia (Acute) Encephalopathy acute (Acute) Encephalopathy (Acute) Leukocytosis (Acute) Acute delirium (Resolved) Adrenal insufficiency (Resolved) Gram-negative pneumonia (Resolved) Hypotension (Resolved) MRSA pneumonia (Resolved) Respiratory failure with hypercapnia (Resolved) Septic shock (Resolved) Tobacco user (Resolved)
[2018-09-28] MEDS: Ipratropium/Albuterol Sulfate 3 ML AMPUL.NEB INHALATION ×4 (07:26→19:09)
[2018-09-28] MEDS: Acetaminophen 325 MG Tablet 650 MG PO ×2 (08:36→16:10)
[2018-09-28] MEDS: Vancomycin IV 500 MG/100 ML BAG 100 MG IV ×2 (08:46→20:33)
[2018-09-28] MEDS: Enoxaparin 40 MG/0.4 ML Syringe SC (08:47)
[2018-09-28] MEDS: levETIRAcetam 1,000 MG Tablet 1000 MG PO ×2 (08:48→23:44)
[2018-09-28] MEDS: guaiFENesin 1,200 MG Tablet 1200 MG PO ×2 (08:48→23:44)
[2018-09-28] MEDS: Sertraline 50 MG Tablet PO (08:48)
[2018-09-28] MEDS: RisperiDONE 0.5 MG Tablet PO (08:48)
[2018-09-28] MEDS: Pantoprazole Sodium 40 MG Tablet PO (08:48)
--- NOTE | 2018-09-28 09:21 | CASEMGMT ---
VERO BOJORQUEZ NOTE: To room to discuss discharge planning with pt. Pt awake/alert/oriented, sitting up in recliner chair, in no distress. Introduced self and role of VERO BOJORQUEZ. Pt states she has been @ [facility] for Rehab since June and her wishes are to discharge back to [facility] from [facility]. Pt states she was just informed this week that she still has 34 more days available to stay there. Mel HERNANDEZ, notified pt is from [facility] and she wishes to return there on D/C. Ayanna GOELN VERO BOJORQUEZ
--- NOTE | 2018-09-28 09:26 | CASEMGMT ---
Addendum entered by Deisy Dumont 09/28/18 11:02: MARY faxed updated clinicals to [place]. Original Note: Social Work Note Pt is from [place] and wishes to return at discharge. MARY placed a call to Lyubov at [place]. Lyubov states pt was skilled at [place] and is able to return skilled whenever medically cleared. Physician updated. Plan: Return to [place] once medically cleared Deisy Dumont POCKET CLOSER, CERAMIC MAKER DEMONSTRATOR
[2018-09-28] MEDS: Acetaminophen/Butalbital/Caffe 1 Tablet 2 TABLET PO (12:21)
[2018-09-28 13:37] LABS: Magnesium 2.4 mg/dL (1.6-2.6)
[2018-09-28] MEDS: Ibuprofen 600 MG Tablet PO (13:44)
[2018-09-28] MEDS: 0.9% Normal Saline 1,000 ML 125 ML IV ×2 (13:46→23:20)
--- NOTE | 2018-09-28 15:07 | PN_ITS ---
Patient Problems: Active and Suspected Problems (Last Reviewed 07/14/18 @ 10:23 by Sander Means MD) Sepsis (Acute) Pneumonia (Acute) Encephalopathy acute (Acute) Subjective: Patient seen and examined. Complains of headache. Continues to complain of shortness of breath and cough with pleuritic pain. Denies fever, chills. - Physical Exam General: Alert, Oriented x3, Cooperative HEENT: Atraumatic, PERRLA, EOMI, Normocephalic Neck: Supple, No JVD, Negative Carotid Bruits Lungs: Diminished, Rhonchi Cardiovascular: Regular rate, Regular Rhythm, Normal S1, Normal S2, No murmurs Abdomen: Bowel Sounds Present, Soft, Non Tender, Non-Distended Extremities: No clubbing, No cyanosis, No edema Skin: No rashes, No breakdown Musculoskeletal: No Tenderness to Palpation of Joints or Extremities Neurological: Cranial nerves II-XII grossly intact, Neuro grossly intact Psych/Mental Status: Normal Affect, Appropriate Vital Signs Temp Pulse Resp BP Pulse Ox 98.5 F 88 20 H 101/55 L 96 09/28/18 10:30 09/28/18 12:00 09/28/18 11:19 09/28/18 10:30 09/28/18 10:30 Oxygen Flow Rate (L/min) 1 Oxygen Delivery Method Nasal Cannula Weight: 142 lb 10.225 oz Body Mass Index (BMI) 21.7 Finger Stick Blood Glucose 113 Intake and Output for Last 24 Hours 09/26/18 09/27/18 09/28/18 23:59 23:59 23:59 Intake Total 2432 / 2432 Output Total 200 / 200 600 / 600 Balance -200 / -200 1832 / 1832 Microbiology Past 72 Hours 09/27/18 22:50 Respiratory Panel (PCR) - Final Mucosa - Nasopharyngeal 09/27/18 Unknown Streptococcus pneumoniae Antigen (M - Final Urine, Clean Catch 09/27/18 Unknown Legionella Antigen - Final Urine, Clean Catch Laboratory Tests Past 24 Hrs 09/27/18 09/27/18 09/27/18 19:12 19:36 19:36 WBC 14.0 H RBC 3.41 L Hgb 10.9 L Hct 33.6 L MCV 98.5 MCH 32.0 MCHC 32.4 RDW 15.0 H RDW Differential 53.9 H Plt Count 170 MPV 9.7 Immature Gran % (Auto) 0.500 Neut % (Auto) 84.5 H Lymph % (Auto) 9.0 L [place] % (Auto) 5.7 Eos % (Auto) 0.2 Baso % (Auto) 0.1 Absolute Neuts (auto) 11.8 H Absolute Lymphs (auto) 1.26 Total Counted Not Reportable Diff Path Review PT 13.9 INR 1.1 APTT 53.6 H Sodium Potassium Chloride Carbon Dioxide Anion Gap BUN Creatinine Estim Creat Clear Calc Est GFR (MDRD) Af Amer Est GFR (MDRD) Non-Af BUN/Creatinine Ratio Glucose Lactic Acid Calcium Magnesium Total Bilirubin AST ALT Alkaline Phosphatase Troponin I Total Protein Albumin Globulin Albumin/Globulin Ratio Urine Color Yellow Urine Clarity Clear Urine pH 8.0 Ur Specific [place] 1.015 Urine Protein Negative Urine Glucose (UA) Normal Urine Ketones Negative Urine Occult Blood 10 H Urine Nitrite Negative Urine Bilirubin Negative Urine Urobilinogen 4 H Ur Leukocyte Esterase 25 H Urine RBC 0-5 SEEN Urine WBC 0 SEEN Ur Squamous Epith Cells 0-5 SEEN Urine Bacteria 0 SEEN Urine Mucus 0 SEEN Valproic Acid 09/27/18 09/27/18 09/27/18 19:36 19:36 19:36 WBC RBC Hgb Hct MCV MCH MCHC RDW RDW Differential Plt Count MPV Immature Gran % (Auto) Neut % (Auto) Lymph % (Auto) [place] % (Auto) Eos % (Auto) Baso % (Auto) Absolute Neuts (auto) Absolute Lymphs (auto) Total Counted Diff Path Review PT INR APTT Sodium 138 Potassium 3.6 Chloride 110 H Carbon Dioxide 21.0 Anion Gap 7 BUN 13 Creatinine 0.77 Estim Creat Clear Calc 55.82 Est GFR (MDRD) Af Amer 97 Est GFR (MDRD) Non-Af 80 BUN/Creatinine Ratio 16.9 Glucose 108 H Lactic Acid 0.7 Calcium 8.3 L Magnesium 2.3 Total Bilirubin 0.40 AST 23 ALT 20 Alkaline Phosphatase 121 H Troponin I < 0.015 Total Protein 6.9 Albumin 2.7 L Globulin 4.2 Albumin/Globulin Ratio 0.6 L Urine Color Urine Clarity Urine pH Ur Specific [place] Urine Protein Urine Glucose (UA) Urine Ketones Urine Occult Blood Urine Nitrite Urine Bilirubin Urine Urobilinogen Ur Leukocyte Esterase Urine RBC Urine WBC Ur Squamous Epith Cells Urine Bacteria Urine Mucus Valproic Acid 09/27/18 09/28/1819 19:37 06:00 06:00 WBC 14.0 H RBC 3.06 L Hgb 9.7 L Hct 30.4 L MCV 99.3 H MCH 31.7 MCHC 31.9 L RDW 14.8 H RDW Differential 51.7 H Plt Count 156 MPV 9.9 Immature Gran % (Auto) 0.400 Neut % (Auto) 78.8 H Lymph % (Auto) 5.2 L [place] % (Auto) 15.0 H Eos % (Auto) 0.5 Baso % (Auto) 0.1 Absolute Neuts (auto) 11.1 H Absolute Lymphs (auto) 0.73 L Total Counted Not Reportable Diff Path Review May foll PT INR APTT Sodium 145 Potassium 3.6 Chloride 117 H Carbon Dioxide 22.0 Anion Gap 6 BUN 8 Creatinine 0.71 Estim Creat Clear Calc 55.82 Est GFR (MDRD) Af Amer 105 Est GFR (MDRD) Non-Af 87 BUN/Creatinine Ratio 11.2 Glucose 88 Lactic Acid Calcium 7.8 L Magnesium Total Bilirubin AST ALT Alkaline Phosphatase Troponin I Total Protein Albumin Globulin Albumin/Globulin Ratio Urine Color Urine Clarity Urine pH Ur Specific [place] Urine Protein Urine Glucose (UA) Urine Ketones Urine Occult Blood Urine Nitrite Urine Bilirubin Urine Urobilinogen Ur Leukocyte Esterase Urine RBC Urine WBC Ur Squamous Epith Cells Urine Bacteria Urine Mucus Valproic Acid 74 09/28/18 06:00 WBC RBC Hgb Hct MCV MCH MCHC RDW RDW Differential Plt Count MPV Immature Gran % (Auto) Neut % (Auto) Lymph % (Auto) [place] % (Auto) Eos % (Auto) Baso % (Auto) Absolute Neuts (auto) Absolute Lymphs (auto) Total Counted Diff Path Review PT INR APTT Sodium Potassium Chloride Carbon Dioxide Anion Gap BUN Creatinine Estim Creat Clear Calc Est GFR (MDRD) Af Amer Est GFR (MDRD) Non-Af BUN/Creatinine Ratio Glucose Lactic Acid Calcium Magnesium 2.4 Total Bilirubin AST ALT Alkaline Phosphatase Troponin I Total Protein Albumin Globulin Albumin/Globulin Ratio Urine Color Urine Clarity Urine pH Ur Specific [place] Urine Protein Urine Glucose (UA) Urine Ketones Urine Occult Blood Urine Nitrite Urine Bilirubin Urine Urobilinogen Ur Leukocyte Esterase Urine RBC Urine WBC Ur Squamous Epith Cells Urine Bacteria Urine Mucus Valproic Acid POC Glucose 09/27/18 18:44 POC Glucose 113 H Medical Necessity - Tobacco Use Smoking Status: Current every day smoker Tobacco Use: Cigarettes Assessment/Plan All Active Problems (Last Reviewed 07/14/18 @ 10:23 by Sander Means MD) Breakthrough seizure (Acute) Dehydration (Acute) Sepsis (Acute) Pneumonia (Acute) Encephalopathy acute (Acute) Encephalopathy (Acute) Leukocytosis (Acute) Acute delirium (Resolved) Adrenal insufficiency (Resolved) Gram-negative pneumonia (Resolved) Hypotension (Resolved) MRSA pneumonia (Resolved) Respiratory failure with hypercapnia (Resolved) Septic shock (Resolved) Tobacco user (Resolved) 1. Acute encephalopathy secondary to acute sepsis as a result of HCAP-chest x- ray on admission with opacity in the left midlung consistent with pneumonia. Continue IV vancomycin and IV Zosyn. Albuterol and DuoNeb aerosols. Respiratory panel negative. Urine for strep and Legionella negative. Sputum culture pending. Blood culture pending. Mental status improved. 2. Chronic hypoxic respiratory failure secondary to chronic COPD and pulmonary fibrosis-continue supplement oxygen to maintain O2 at or above 90%. Albuterol and DuoNeb aerosols. No acute exacerbation. 3. Chronic anemia-stable. 4. Hypertension-stable, continue home lisinopril regimen. 5. Tobacco dependence-encouraged smoking cessation. 6. Seizure disorder-continue home Keppra regimen. 7. Hypothyroidism-continue home Synthroid regimen. 8. Anxiety/depression/bipolar disorder-continue home Zoloft, Depakote and Risperdal regimen. 9. RENNY-continue CPAP regimen. 10. RLS-continue Requip regimen. 11. GERD-continue PPI. DVT prophylaxis-Lovenox subcu Discharge planning: Anticipate return to SNF tomorrow if continued improvement. This patient was seen by ROSELYN Chau under the supervision of Dr. Brian.
[2018-09-28 15:16] LABS: Pathologist Review Reviewed
[2018-09-28] MEDS: Pramipexole Di-HCl 0.25 MG Tablet PO (23:44)
[2018-09-28] MEDS: MELATONIN 10 MG TABLET 15 MG PO (23:44)
[2018-09-28] MEDS: RisperiDONE 1 MG Tablet PO (23:44)
[2018-09-29] VITALS (8 sets, daily range): BP systolic 91–118; BP diastolic 53–64; PULSE 72–91; RESP 14–20; TEMP 36.6–36.7; O2SAT 93–99
[2018-09-29 00:05] LABS: Bedside Glucose 124 mg/dL (70-110)
[2018-09-29] MEDS: Levothyroxine 150 MCG Tablet PO (05:44)
[2018-09-29] MEDS: 0.9% NaCl Peripheral Flush Adult/Peds IV ×4 (06:13→13:03)
[2018-09-29 06:43] LABS: Hemoglobin 8.8 g/dl (12.0-15.0); Mean Corp Hgb Conc 31.4 g/gl (32-36); Mean Corpuscular Hgb 31.7 pg (27.0-32.0); Mean Corpuscular Volume 100.7 fL (81-99); Mean Platelet Vol. 9.6 fl (6.2-12.0); Platelet Count 169 K/mm3 (150-450); RBC Distribution Width SD 53.3 fl (35.1-43.9); Red Blood Count 2.78 M/mm3 (4.2-5.4); White Blood Count 9.4 K/mm3 (4.4-11.0)
[2018-09-29 06:46] LABS: Scan Indicated on CBC? Y/N NO
[2018-09-29] MEDS: Ipratropium/Albuterol Sulfate 3 ML AMPUL.NEB INHALATION ×2 (06:50→10:38)
[2018-09-29] MEDS: 0.9% Normal Saline 1,000 ML 125 ML IV (07:38)
[2018-09-29] MEDS: Acetaminophen 325 MG Tablet 650 MG PO (08:31)
[2018-09-29 09:15] LABS: Vancomycin, Trough Level 8.2 ug/mL (5.0-15.0)
[2018-09-29] MEDS: Vancomycin IV 500 MG/100 ML BAG 100 MG IV (09:21)
[2018-09-29] MEDS: levETIRAcetam 1,000 MG Tablet 1000 MG PO (09:32)
[2018-09-29] MEDS: guaiFENesin 1,200 MG Tablet 1200 MG PO (09:32)
[2018-09-29] MEDS: Pantoprazole Sodium 40 MG Tablet PO (09:32)
[2018-09-29] MEDS: Enoxaparin 40 MG/0.4 ML Syringe SC (09:32)
[2018-09-29] MEDS: Sertraline 50 MG Tablet PO (09:33)
[2018-09-29] MEDS: RisperiDONE 0.5 MG Tablet PO (09:33)
--- NOTE | 2018-09-29 10:48 | PCM.RX.CS ---
Consult Pharmacy has been consulted to manage selected antiobiotic: Vancomycin Type of Consult: Follow-up Suspected Infection: Pneumonia Prior Doses of Antibiotics Received/Current Regimen: Currently on 500mg iv q12h. Labs: Sodium 145 mmol/L (136-145) 09/28/18 06:00 Potassium 3.6 mmol/L (3.5-5.1) 09/28/18 06:00 Chloride 117 mmol/L (98-107) H 09/28/18 06:00 Carbon Dioxide 22.0 mmol/L (21.0-32.0) 09/28/18 06:00 Anion Gap 6 (5-15) 09/28/18 06:00 BUN 8 mg/dL (7-18) 09/28/18 06:00 Creatinine 0.71 mg/dL (0.55-1.02) 09/28/18 06:00 Est GFR (MDRD) Af Amer 105 mL/min (>60) 09/28/18 06:00 Est GFR (MDRD) Non-Af 87 mL/min (>60) 09/28/18 06:00 BUN/Creatinine Ratio 11.2 RATIO (10-20) 09/28/18 06:00 Glucose 88 mg/dL (74-106) 09/28/18 06:00 Vancomycin Trough 8.2 ug/mL (5.0-15.0) 09/29/18 08:28 Microbiology: Microbiology 09/28/18 11:05 Sputum, Expectorated/Coughed Gram Stain - Final 09/28/18 11:05 Sputum, Expectorated/Coughed Respiratory Culture - Preliminary Appears to be normal respiratory tayla. Further studies to follow. 09/27/18 Unknown Urine, Clean Catch Urine Culture - Final Mixed Gram Positive Organisms 09/27/18 22:50 Mucosa - Nasopharyngeal Respiratory Panel (PCR) - Final 09/27/18 Unknown Urine, Clean Catch Streptococcus pneumoniae Antigen (M - Final 09/27/18 Unknown Urine, Clean Catch Legionella Antigen - Final Weight used for dosin.7 kg Estimated Creatinine Clearance: ~56ml/min Goal Trough: 10-15 mcg/mL Pharmacy Plan for Drug Dosing: Vancomycin trough level of 19 was 8.2. Patient improving. Will increase dose to 750mg iv q12h and get another trough level on 10.01.18 before 4th dose of new regimen. Pharmacy Service will continue to monitor and adjust dosing as required. Vancomycin troug Follow-Up Labs: Trough Vancomycin - 4.14.19 @6856
--- NOTE | 2018-09-29 11:06 | CASEMGMT ---
Social Work Note Pt is discharging back to [facility] today. Pt's Evgeny works for [facility] and would like to filler picker pt around 2:00pm. MARY met with pt and pt's Evgeny. MARY introduced self and role at [facility]. Pt is alert and orientated x3, gave this worker permission to speak to her in front of her guest. Pt confirms that she will be returning to [place] today. Evgeny confirms that he would like to transport pt around 2:00pm and states that this worker will have to call [facility] to schedule transport. Evgeny asked what options are available once pt's Medicare days run out at [facility]. MARY explained options of paying privately, taking pt home, or applying for Medicaid. MARY provided Evgeny with home resources including [facility], Home HHC and Home assistance programs through [facility], early childhood educator aide list, PASSPORT information and Medicaid application. MARY placed a call to [facility] and arranged transportation via wheelchair van for 2:00pm. MARY updated pt on transportation time that is arranged for 2:00pm. Transportation form completed and placed on SNF folder and copy placed on pt's chart. MARY placed a call to [facility] and spoke with Jesusita, updated her that pt will be discharged today and transportation arranged for 2:00pm. SW to fax completed discharge paperwork once completed. Plan: Pt to discharge back to [facility] today with [facility] transporting via wheelchair van at 2:00pm Deisy CANO, [employer]ER
--- NOTE | 2018-09-29 11:40 | PCM.EXTCARCO ---
- Diet 09/27/18 21:59 Diet: Cardiac/Low Cholesterol Food consistency:: Regular Liquid Consistency:: Regular/Thin - Routine Orders/Code Status Enema Type: Fleetz Enema Frequency: Daily PRN Suppository Type: Dulcolax 10mg Suppository Frequency: Daily PRN O2 Liters per Minute: 2 O2 Frequency: PRN Keep PO Greater than or Equal to (%): 90 Routine Lab Work: - - CBC, BMP in 3 days and then Q Week. Code Status: Full Code - Suggestions for Active Care Change Position every (hours): 2 Hours to sit in a chair: 3 - Therapies Physical Therapy: Eval and Treat Occupational Therapy: Eval and Treat - Problem/Diagnosis (1) Breakthrough seizure Status: Resolved Current Visit: No (2) Nocturnal hypoxia Status: Chronic Comment: On CPAP and O2 at night Current Visit: No (3) PRES (posterior reversible encephalopathy syndrome) Status: Chronic Current Visit: No (4) Medication overuse headache Status: Chronic Current Visit: No (5) Sepsis Status: Acute Current Visit: Yes (6) Pneumonia Status: Acute Current Visit: Yes (7) Encephalopathy acute Status: Acute Current Visit: Yes (8) Anxiety and depression Status: Chronic Current Visit: No (9) Tobacco abuse Status: Chronic Current Visit: No (10) Leukocytosis Status: Acute Current Visit: No (11) RENNY (obstructive sleep apnea) Status: Chronic Current Visit: No (12) Mild diastolic dysfunction Status: Chronic Current Visit: No (13) Depression Status: Chronic Current Visit: No (14) Restless leg Status: Chronic Current Visit: No (15) HTN (hypertension) Status: Chronic Current Visit: No (16) Presbycusis of both ears Status: Chronic Current Visit: No (17) COPD (chronic obstructive pulmonary disease) Status: Chronic Current Visit: No (18) Hypothyroidism Status: Chronic Current Visit: No (19) Pulmonary fibrosis Status: Chronic Current Visit: No - Allergies/Procedures Done in Hospital Allergies/Adverse Reactions: Allergies Sulfa (Sulfonamide Antibiotics) Adverse Reaction (Intermediate, Verified 07/13/18 14:52) Other - Messes with blood counts prochlorperazine edisylate [From Compazine] Adverse Reaction (Mild, Verified 07/13/18 14:52) Other - Restless legs prochlorperazine maleate [From Compazine] Adverse Reaction (Mild, Verified 07/13/18 14:52) Other - Restless legs Procedures: None - Type of Care/Length of Stay Estimated LOS: Convalescent Care Less Than 30 days Type of Care Needed: Skilled Rehab Potential: Fair Prognosis: Fair - Additional Orders/Day of Discharge H&P will serve as current which was dated: 09/27/18 Day of Discharge: 09/29/18 - Dietary and Speech Recommendations Dietitian Recommendations/Changes: Recommend continue Cardiac/Low Cholesterol Diet. Continue ONS Ensure Enlive with medpass. - Follow Up Care Primary Care Physician: Vin Baca DO [Primary Care Provider] - Please follow up with your Primary Care Physician in: 1 Week
--- NOTE | 2018-09-29 12:17 | DS.PCM_ITS ---
Discharge Date and Diagnosis Date of Admission: 09/27/18 Date of Discharge: 09/29/18 - Primary Discharge Diagnosis Active and Suspected Problems (Last Reviewed 07/14/18 @ 10:23 by Sander Means MD) 1. HCAP with Acute Sepsis and associated Acute encephalopathy 2. Chronic hypoxic respiratory failure secondary to chronic COPD and pulmonary fibrosis 3. Chronic anemia 4. Hypertension 5. Tobacco dependence 6. Seizure disorder 7. Hypothyroidism 8. Anxiety/depression 9. RENNY on CPAP 10. RLS 11. GERD - Secondary Discharge Diagnosis Chronic Problems (Last Reviewed 07/14/18 @ 10:23 by Sander Means MD) Nocturnal hypoxia (Chronic) On CPAP and O2 at night PRES (posterior reversible encephalopathy syndrome) (Chronic) Medication overuse headache (Chronic) Anxiety and depression (Chronic) Tobacco abuse (Chronic) RENNY (obstructive sleep apnea) (Chronic) Mild diastolic dysfunction (Chronic) Depression (Chronic) Restless leg (Chronic) HTN (hypertension) (Chronic) Presbycusis of both ears (Chronic) COPD (chronic obstructive pulmonary disease) (Chronic) Hypothyroidism (Chronic) Pulmonary fibrosis (Chronic) Hospital Course and Treatment Imaging Results: Diagnostic Data Chest X-Ray 09/27/18 18:55 IMPRESSION: 1. Hazy opacity in the left midlung is consistent with pneumonia. Follow-up to resolution is advised to exclude underlying mass. 2. Atelectasis is favored over pneumonic infiltrate in the right lung base. Electronically Signed: Lo Barton MD at 19:31 EDT Tel , Service support , Operations: None Procedures: None Summary of Care Provided: The patient is a 68 year old F admitted 09/27/2018 due to fever, cough and confusion. 1. Acute encephalopathy secondary to acute sepsis as a result of HCAP-chest x- ray on admission with opacity in the left midlung consistent with pneumonia. Patient received IV vancomycin and IV Zosyn. Discharged on oral Augmentin for a total of 7 days of antibiotic therapy. Respiratory panel negative. Urine for strep and Legionella negative. Sputum culture with normal respiratory tayla. Blood culture shows no growth thus far. Mental status at baseline, no further confusion. Follow-up with primary care physician in 1 week. 2. Chronic hypoxic respiratory failure secondary to chronic COPD and pulmonary fibrosis-No acute COPD exacerbation. Patient will continue supplemental oxygen as needed to maintain O2 at or above 90%. Continue home inhaler regimen. 3. Chronic anemia-mild decrease in hemoglobin during admission suspected secondary to hemodilution. Patient's baseline appears to be 9-10. Hemoglobin at discharge 8.8. Repeat CBC in [address] [facility]. 4. Hypertension-stable, continue home lisinopril regimen. 5. Tobacco dependence-encouraged smoking cessation. 6. Seizure disorder-continue home Keppra, divalproex regimen. 7. Hypothyroidism-continue home Synthroid regimen. 8. Anxiety/depression-continue home Zoloft and Risperdal regimen. 9. RENNY-continue CPAP regimen. 10. RLS-continue Requip regimen. 11. GERD-continue PPI. General: Alert, Oriented x3, Cooperative HEENT: Atraumatic, PERRLA, EOMI, Normocephalic Neck: Supple, No JVD, Negative Carotid Bruits Lungs: Diminished, Rhonchi- Improved. Cardiovascular: Regular rate, Regular Rhythm, Normal S1, Normal S2, No murmurs Abdomen: Bowel Sounds Present, Soft, Non Tender, Non-Distended Extremities: No clubbing, No cyanosis, No edema Skin: No rashes, No breakdown Musculoskeletal: No Tenderness to Palpation of Joints or Extremities Neurological: Cranial nerves II-XII grossly intact, Neuro grossly intact Psych/Mental Status: Normal Affect, Appropriate Patient seen and examined prior to discharge. Physical assessment as noted above. Patient is stable for discharge with follow up recommendations as noted above. This patient was seen by ROSELYN Chau under the supervision of Dr. Brian. - Physical Exam Vital Signs Temp Pulse Resp BP Pulse Ox 98.0 F 90 18 91/53 L 95 09/29/18 09:19 09/29/18 11:55 09/29/18 10:38 09/29/18 09:19 09/29/18 09:19 Oxygen Flow Rate (L/min) 2 Oxygen Delivery Method Room Air Weight: 142 lb 10.225 oz Body Mass Index (BMI) 21.7 Finger Stick Blood Glucose 113 Intake and Output for Last 24 Hours 09/27/18 09/28/18 09/29/18 23:59 23:59 23:59 Intake Total 3993 / 3993 1774 / 1774 Output Total 200 / 200 600 / 600 150 / 150 Balance -200 / -200 3393 / 3393 1624 / 1624 Microbiology Past 72 Hours 09/28/18 11:05 Gram Stain - Final Sputum, Expectorated/Coughed Respiratory Culture - Preliminary Appears to be normal respiratory tayla. Further studies to follow. 09/27/18 Unknown Urine Culture - Final Urine, Clean Catch Mixed Gram Positive Organisms 09/27/18 22:50 Respiratory Panel (PCR) - Final Mucosa - Nasopharyngeal 09/27/18 Unknown Streptococcus pneumoniae Antigen (M - Final Urine, Clean Catch 09/27/18 Unknown Legionella Antigen - Final Urine, Clean Catch Laboratory Tests Past 24 Hrs 09/28/18 09/28/18 09/29/18 06:00 06:00 06:15 WBC 9.4 RBC 2.78 L Hgb 8.8 L Hct 28.0 L MCV 100.7 H MCH 31.7 MCHC 31.4 L RDW 15.0 H RDW Differential 53.3 H Plt Count 169 MPV 9.6 Diff Path Review Reviewed Magnesium 2.4 Vancomycin Trough 09/29/18 08:28 WBC RBC Hgb Hct MCV MCH MCHC RDW RDW Differential Plt Count MPV Diff Path Review Magnesium Vancomycin Trough 8.2 POC Glucose 09/29/18 00:02 POC Glucose 124 H Home Medications: Medications to take at Discharge Pantoprazole Sodium [Protonix] 40 mg PO DAILY 08/23/16 Risperidone [Risperdal] 0.5 mg PO DAILY 12/14/17 Sertraline HCl [Zoloft] 50 mg PO DAILY 12/14/17 Levothyroxine Sodium [Synthroid] 150 mcg PO MOTUWETHFR 05/16/18 Multivit-Min/Iron/Folic/Lutein [Centrum Silver Women Tablet] 1 tab PO DAILY 05/16/18 Risperidone 1 mg PO QHS 07/13/18 Acetaminophen [Tylenol Tablet] 650 mg PO Q4H PRN PRN tablet 07/18/18 Aspirin/Acetaminophen/Caffeine [Excedrin Migraine Caplet] 2 tab PO Q6H PRN PRN 09/27/18 Budesonide/Formoterol 160/4.5 [Symbicort 160/4.5 Mcg Inhaler (SP)] 2 inh INHALATION BID 09/27/18 Cranberry Conc/Ascorbic Acid [Cranberry Plus Vitamin C Sftgl] 2 tab PO DAILY 09/27/18 Divalproex Sodium 500 mg PO BID 09/27/18 Guaifenesin [Mucinex] 600 mg PO BID 09/27/18 Lisinopril [Zestril] 2.5 mg PO DAILY 09/27/18 Melatonin 15 mg PO QHS 09/27/18 Polyvinyl Alcohol [Artificial Tears] 1 drop EACH EYE TID 09/27/18 Ropinirole HCl [Requip] 0.5 mg PO QHS 09/27/18 Tiotropium Reading [Spiriva Respimat] 2 puff INHALATION DAILY 09/27/18 levETIRAcetam tablet [Keppra tablet] 1,000 mg PO BID 09/27/18 Albuterol Aerosols [Ventolin Aerosols] 2.5 mg INHALATION Q2H PRN PRN vial.neb. 09/29/18 Amox/Clavulanate Tablet [Augmentin Tablet] 875 mg PO Q12H #12 tablet 09/29/18 Ibuprofen [Motrin] 600 mg PO Q8H PRN PRN tablet 09/29/18 Following Prescrptions Were Given to Patient: Amox/Clavulanate Tablet [Augmentin Tablet] 875 mg PO Q12H #12 tablet Primary Care Physician: Vin Baca DO [Primary Care Provider] - Please follow up with your Primary Care Physician in: 1 Week [facility] Minutes spent on discharge:: 35 Patient Condition:: Stable Medical Necessity - Tobacco Use Smoking Status: Current every day smoker Tobacco Use: Cigarettes Meaningful Use Info Meaningful Use Diagnoses (Choose all that apply): None applicable
[2018-09-29] MEDS: Lisinopril 2.5 MG Tablet PO (13:02)
[2018-09-29] MEDS: Ibuprofen 600 MG Tablet PO (13:05)
--- NOTE | 2018-09-29 13:35 | CASEMGMT ---
Social Work Note SW faxed completed discharge paperwork to [place] including transfer to extended care facility, signed medication list and any scripts. Original in SNF folder and copy on pt's chart. Convalescent [facility] doesn't need to be completed in [facility] as pt was skilled at [place] and will be returning skilled. Plan: Pt to discharge to [place] skilled with [facility] transporting via wheelchair van at 2:00pm Deisy CANO, KILN BURNER HELPER
--- NOTE | 2018-09-29 13:46 | NURSING ---
REPORT CALLED TO [facility] AND TALKED WITH EVELYN PHAM
[2018-09-29 16:15] LABS: M R Staph aureus DNA By PCR Negative (Negative); Probe Check PASS; Specimen Processing Control PASS
== END 2018-09-29 15:30 | disposition skilled nursing facility (03) | DRG 871 ==
LOC: ED 19:17 → MS3 21:27
PROVIDERS: Nurse Practitioner Family; Admitting Provider Family Medicine; Emergency Provider Emergency Medicine; Family Provider Family Medicine; PCP Family Medicine; Referring Provider Family Medicine; Visit Provider Internal Medicine
DX: A41.9 Sepsis, unspecified organism (principal); J18.9 Pneumonia, unspecified organism; J96.11 Chronic respiratory failure with hypoxia; G93.49 Other encephalopathy; J44.1 Chronic obstructive pulmonary disease with (acute) exacerbation; J44.0 Chronic obstructive pulmonary disease with (acute) lower respiratory infection; Z99.81 Dependence on supplemental oxygen; E03.9 Hypothyroidism, unspecified; J84.10 Pulmonary fibrosis, unspecified; Y95 Nosocomial condition; G40.909 Epilepsy, unspecified, not intractable, without status epilepticus; G47.33 Obstructive sleep apnea (adult) (pediatric); G25.81 Restless legs syndrome; D64.9 Anemia, unspecified; I10 Essential (primary) hypertension; F41.9 Anxiety disorder, unspecified; F32.9 Major depressive disorder, single episode, unspecified; K21.9 Gastro-esophageal reflux disease without esophagitis; H91.13 Presbycusis, bilateral; F17.210 Nicotine dependence, cigarettes, uncomplicated
CPT/HCPCS: 36415; 36591; 71045; 80048; 80053; 80164; 80202; 81001; 82962; 83605; 83735; 84484; 85025; 85027; 85610; 85730; 87040; 87070; 87086; 87088; 87205; 87449; 87633; 87641; 93005; 94640; 94660; 94667; 97110; 97162; 97166; 97530; 97802; 99285; J7030; J7040; A4216

== ENCOUNTER → 2018-11-08 13:18 | Outpatient (CLI) | payer MEDICARE, OTHER, SELFPAY ==
[2018-09-27 21:59] VITALS: BMI 21.7
[2018-11-08 14:25] LABS: Free T3 1.6 pg/mL (2.18-3.98); Thyroid Stim Hormone (TSH) 0.01 uIU/mL (0.358-3.74)
== END ==
PROVIDERS: Family Provider Family Medicine; PCP Family Medicine; Visit Provider Internal Medicine Endocrinology, Diabetes & Metabolism
DX: E89.0 Postprocedural hypothyroidism (principal)
CPT/HCPCS: 36591; 84439; 84443; 84481; A4216

== ENCOUNTER 2018-12-08 09:41 | Inpatient (IN) | payer MEDICARE, OTHER, SELFPAY ==
[2018-09-27 21:59] VITALS: BMI 21.7
[2018-12-08] VITALS (33 sets, daily range): BP systolic 84–167; BP diastolic 36–133; PULSE 69–108; RESP 12–39; TEMP 36.6–37; O2SAT 95–100
--- NOTE | 2018-12-08 09:43 | EKG12_ITS ---
Test Reason : SOB Blood Pressure : / mmHG Vent. Rate : 097 BPM Atrial Rate : 097 BPM P-R Int : 114 ms QRS Dur : 072 ms QT Int : 358 ms P-R-T Axes : 087 050 069 degrees QTc Int : 454 ms Normal sinus rhythm Right atrial enlargement Cannot rule out Inferior infarct (cited on or before 13-JUL-2018) Abnormal ECG Confirmed by BIJAN YEUNG, MARISELA ([id number]), film or videotape editor JAIMIE GLASER ([id number]) on 12/11/2018 11:45:16 AM Referred By: Sukhjinder Marshall Confirmed By:LJ THAKKAR MD
--- NOTE | 2018-12-08 09:45 | RAD_ITS ---
HISTORY: Difficulty in breathing XR Chest 1 View TECHNIQUE: Single frontal view of chest. # of images incl. paperwork: 3 COMPARISON: 09/27/2018 FINDINGS: Shallow inspiratory effort limits this exam. Right sided [id number] catheter in place. No definite cardiomegaly. Moderate coarse interstitial opacities most likely representing chronic interstitial changes. Superimposed foci of pneumonitis not excluded. Lung bases are suboptimally evaluated and minimal effusions cannot be excluded. No pneumothorax. No acute osseous abnormality of the thorax. RAD/Chest 1 View (Portable) IMPRESSION: 1. Shallow inspiratory effort limiting evaluation of the lung bases. Bibasilar consolidation/small effusions cannot be entirely excluded. 2. Chronic interstitial changes plus or minus superimposed foci of pneumonitis. at 1232 Reported and signed by: Josh Serrato MD Electronically Signed: Josh Serrato MD at 12:31 EDT Tel , Service support ,
[2018-12-08 10:21] LABS: Allen Test POS; Base Excess -3 mmol/L (-2 to +2); Bicarbonate 22.4 mmol/L (22-26); Blood Gas Specimen Type ART; O2 Delivery Device Nasal Can; PO2 73 mmHG (75-100); SITE R Radial; SO2 94 % (95-99); Time Given 1017; Total Carbon Dioxide 24 mmol/L; pCO2 40.8 mmHg (35-45); pH 7.35 (7.35-7.45)
[2018-12-08] MEDS: 0.9% Normal Saline 1,000 ML 150 ML IV (10:26)
[2018-12-08 10:27] LABS: Absolute Lymphocyte Count 1.54 X10^3/ul (0.83-4.51); Absolute Neutrophil Count 25.4 X10^3/uL (2.0-7.7); Basophil# 0.04 X10^3/uL; Basophil% 0.1 % (0-1); Eosinophil# 0.05 X10^3/uL; Eosinophils% 0.2 % (0-5); Hematocrit 34.6 % (37-47); Hemoglobin 11.6 g/dl (12.0-15.0); Lymphocyte # 1.54 X10^3/ul (4.0); Lymphocyte % 5.4 % (19-41); Mean Corp Hgb Conc 33.5 g/gl (32-36); Mean Corpuscular Hgb 31.2 pg (27.0-32.0); Mean Platelet Vol. 8.7 fl (6.2-12.0); Monocyte# 1.04 X10^3/uL; Monocyte% 3.7 % (0-10); Neutrophil # 25.38 X10^3/uL (2.7-7.7); Neutrophil % 89.3 % (47-70); POSITIVE COUNT NO; POSITIVE DIFFERENTIAL YES; POSITIVE MORPHOLOGY YES; Platelet Count 260 K/mm3 (150-450); RBC Distribution Width SD 51.1 fl (35.1-43.9); Red Blood Count 3.72 M/mm3 (4.2-5.4); White Blood Count 28.4 K/mm3 (4.4-11.0)
[2018-12-08 10:28] LABS: Differential Indicated SCAN CRITERIA MET
[2018-12-08 10:36] LABS: Partial Thromboplast Time 60.9 Seconds (24.1-36.2)
[2018-12-08] MEDS: Albuterol 2.5 MG/3 ML VIAL.NEB. INHALATION (10:42)
[2018-12-08] MEDS: Ipratropium/Albuterol Sulfate 3 ML AMPUL.NEB INHALATION ×4 (10:42→22:22)
[2018-12-08 10:43] LABS: AST(SGOT) 10 U/L (15-37); Alanine Aminotransfer ALT/SGPT 9 U/L (13-56); Albumin, Serum 2.2 g/dL (3.2-5.0); Alkaline Phosphatase 220 U/L (45-117); Anion Gap 10 (5-15); BUN 36 mg/dL (7-18); BUN/Creat Ratio 41.2 RATIO (10-20); Bilirubin, Direct 0.21 mg/dL (0.00-0.30); Calcium,Total 8.9 mg/dL (8.5-10.1); Chloride 106 mmol/L (98-107); Creatinine, Serum 0.87 mg/dL (0.55-1.02); EST Glomerular Filtration Rate 69 mL/min (>60); Est Glom Filt Rate - Afr Amer 83 mL/min (>60); Estimated Creatinine Clearance 59.95 ml/min; Globulin 5.2 g/dL (2.2-4.2); Glucose 95 mg/dL (74-106); Lipase 51 U/L (73-393); Potassium 3.6 mmol/L (3.5-5.1); Protein, Total 7.4 g/dL (6.4-8.2); Sodium Level 140 mmol/L (136-145)
[2018-12-08 11:05] LABS: BNP,B-Type NATRIURETIC PEPTIDE 211.9 pg/mL (0-100)
[2018-12-08] MEDS: Ceftriaxone 1 GM/50 ML BAG IV ×2 (11:24→20:56)
[2018-12-08] MEDS: 0.9% Normal Saline 1,000 ML 999 ML IV ×2 (11:24→13:22)
[2018-12-08 11:27] LABS: Mucous, Urine 0 SEEN /hpf (<or=2+)
[2018-12-08 11:28] LABS: Color, Urine Yellow (Yellow); Glucose, Dipstick Normal (Normal); Ketone-Dipstick 5 mg/dl (Negative); Leukocyte Esterase-Dipstick 25 /ul (Negative); Nitrite-Dipstick Negative (Negative); Occult Blood-Urine 25 /ul (Negative); Protein-Dipstick 100 mg/dl (Negative); Specific Gravity, Urine 1.015 (1.002-1.030); Urine Bilirubin Dipstick Negative (Negative); Urine Clarity Clear (Clear); Urine Urobilinogen 1 mg/dl (Normal)
[2018-12-08 11:35] LABS: Bacteria 1+ /hpf (None Seen); Red Blood Cells-Urine 0-5 SEEN /hpf (0-5); Squamous Epithelial Cells - UA 0-5 SEEN /hpf (5-10); White Blood Cells 0-5 SEEN /hpf (0-5)
--- NOTE | 2018-12-08 13:53 | HP.PCM_ITS ---
History of Present Illness Date of Admission: 12/08/18 Chief Complaint: Dyspnea, confusion The patient is a 68 y/o F w/ PMHx: Chronic COPD and Pulmonary Fibrosis, Tobacco use, Mild Diastolic Dysfuction, Depression and Anxiety/?Bipolar disorder, Hypothyroidism, Adrenal Insufficiency, RLS, Chronic back pain who presents to the [facility] ED on 12/08/18 with history of Work-up in the ED included T 98.2, heart rate 108, BP initially 97/72, respiratory rate 31, 96% on 3 L nasal cannula--> heart rate 96, BP 112/53, respiratory rate 35, 97% on BiPAP, CBC with WC 28.4, hemoglobin 11.6, platelet 260 with left shift, coags with PT 23, INR 2, PTT 60.9, ABG with oxygen saturation 94 with PO2 73 obtained on 3 L nasal cannula, CMP with alk phos 210, troponin less than 0.015, lactic acid 1.0 BNP 211.9, lipase 51, urinalysis not marked appearing with mild evidence of dehydration, blood culture x2 pending per ED, chest x-ray with shallow respiratory effort limiting evaluation of lung bases with noted bibasilar consolidation versus small effusions with chronic dorsal changes and possible superimposed foci of pneumonitis. In the ED patient administered DuoNeb, albuterol, azithromycin, Rocephin, Solu-Medrol, normal saline. Acute Hypoxic Respiratory Failure secondary to Acute Sepsis secondary to Community Acquired Pneumonia and Acute on Chronic COPD exacerbation: CXR in the ED w/ []. Admission CBC w/ []. Will admit to [], maintain on oxygen with wean as tolerated to room air/home oxygen supplementation, continue ATC duonebs, PRN albuterol, maintained on IV Zosyn/Levaquin/Rocephin and Azithromycin/Zosyn, Levaquin and Vancomycin, HOB, IS parameters w/ pending sputum cultures and urine antigens. Bld cx x 2 obtained in the ED. Will obtain AM oxygenation trial for discharge planning daily. Past Medical History Past Medical History (Chronic Problems): Chronic Problems (Last Reviewed 07/14/18 @ 10:23 by Sander Means MD) Nocturnal hypoxia (Chronic) On CPAP and O2 at night PRES (posterior reversible encephalopathy syndrome) (Chronic) Medication overuse headache (Chronic) Anxiety and depression (Chronic) Tobacco abuse (Chronic) RENNY (obstructive sleep apnea) (Chronic) Mild diastolic dysfunction (Chronic) Depression (Chronic) Restless leg (Chronic) HTN (hypertension) (Chronic) Presbycusis of both ears (Chronic) COPD (chronic obstructive pulmonary disease) (Chronic) Hypothyroidism (Chronic) Pulmonary fibrosis (Chronic) Medical History: Medical History (Last Reviewed 07/14/18 @ 10:23 by Sander Means MD) Leukocytosis (Acute) D72.829 RENNY (obstructive sleep apnea) (Chronic) G47.33 Mild diastolic dysfunction (Chronic) I51.9 Depression (Chronic) F32.9 Restless leg (Chronic) HTN (hypertension) (Chronic) I10 Presbycusis of both ears (Chronic) H91.13 COPD (chronic obstructive pulmonary disease) (Chronic) J44.9 Hypothyroidism (Chronic) E03.9 Pulmonary fibrosis (Chronic) J84.10 COPD with acute exacerbation J44.1 Gallstones K80.20 Septic shock A41.9, R65.21 UTI (urinary tract infection) N39.0 Anxiety F41.9 Bronchitis J40 Carpal tunnel syndrome G56.00 Cataract H26.9 Chronic back pain M54.9, G89.29 Migraine G43.909 Osteopenia M85.80 Solitary pulmonary nodule R91.1 Stage 2 moderate COPD by GOLD classification J44.9 Tobacco abuse Z72.0 Acute delirium (Resolved) R41.0 Acute respiratory failure J96.00 Adrenal insufficiency (Resolved) E27.40 H/O: hysterectomy Z98.890, Z90.710 Hypersomnia G47.10 Hypotension (Resolved) I95.9 MRSA pneumonia (Resolved) J15.212 Respiratory failure with hypercapnia (Resolved) J96.92 Allergies Sulfa (Sulfonamide Antibiotics) Adverse Reaction (Intermediate, Verified 12/08/18 10:27) Other - Messes with blood counts prochlorperazine edisylate [From Compazine] Adverse Reaction (Mild, Verified 12/08/18 10:27) Other - Restless legs prochlorperazine maleate [From Compazine] Adverse Reaction (Mild, Verified 12/08/18 10:27) Other - Restless legs Home Medications: Ambulatory Orders Medication Instructions Recorded Pantoprazole Sodium [Protonix] 40 mg PO DAILY 08/23/16 Sertraline HCl [Zoloft] 50 mg PO DAILY 12/14/17 Levothyroxine Sodium [Synthroid] 150 mcg PO MOTUWETHFR 05/16/18 Divalproex Sodium 500 mg PO BID 09/27/18 Ropinirole HCl [Requip] 0.5 mg PO QHS 09/27/18 Albuterol Aerosols [Ventolin 2.5 mg INHALATION Q2H PRN PRN 09/29/18 Aerosols] vial.neb. Baclofen 5 - 10 mg PO TID PRN PRN 12/08/18 Budesonide/Formoterol Fumarate 2 puff IH BID 12/08/18 [Symbicort 160-4.5 Mcg Inhaler] Divalproex Sodium [Depakote] 250 mg PO DAILY 12/08/18 Ipratropium/Albuterol Sulfate 3 ml IH Q4H PRN PRN 12/08/18 [Iprat-Albut 0.5-3(2.5) mg/3 ml] Levetiracetam 500 mg PO BID 12/08/18 Lisinopril [Zestril] 10 mg PO DAILY 12/08/18 Melatonin 10 mg PO QHS 12/08/18 Rizatriptan Benzoate [Rizatriptan] 10 mg PO UD 12/08/18 Surgical History: Surgical History (Last Reviewed 07/14/18 @ 10:24 by Sander Means MD) Cochlear implant in place Z96.21 Dr Andrade 2014 H/O adenoidectomy Z98.890, Z90.89 History of cataract surgery Z98.49 History of cholecystectomy Z98.890, Z90.49 History of lung biopsy Z98.890 Hx of appendectomy Z98.890, Z90.49 Hx of left knee surgery Z98.890 joint lipoma removal vocal nodules removed Surgical History: appendectomy, cholecystectomy, hysterectomy, total hip arthroplasty - Right, - - thyroidectomy and BL intraocular lens implants,cochear implant Psychiatric History: Anxiety, Depression, - - Suspected narcotic dependence. [employer] History: No pertinent [employer] history Smoking Status: Former smoker - *Family History Maternal Family History: Family History (Last Reviewed 07/14/18 @ 10:24 by Sander Means MD) Mother Hypertension CVA (cerebral vascular accident) Father CVA (cerebral vascular accident) Hypertension Sister Colon cancer Grandfather Hypertension Heart disease History Items: Heart Disease, Stroke Paternal Family History: Family History (Last Reviewed 07/14/18 @ 10:24 by Sander Means MD) Mother Hypertension CVA (cerebral vascular accident) Father CVA (cerebral vascular accident) Hypertension Sister Colon cancer Grandfather Hypertension Heart disease History Items: Heart Disease, Stroke Sibling Family History: Family History (Last Reviewed 07/14/18 @ 10:24 by Sander Means MD) Mother Hypertension CVA (cerebral vascular accident) Father CVA (cerebral vascular accident) Hypertension Sister Colon cancer Grandfather Hypertension Heart disease History Items: - - sister with colon cancer - Physical Exam Vital Signs Temp Pulse Resp BP Pulse Ox 98.2 F 96 35 H 112/53 L 97 12/08/18 12:12 12/08/18 13:00 12/08/18 13:00 12/08/18 13:00 12/08/18 13:00 Oxygen Flow Rate (L/min) 3 Oxygen Delivery Method Bi-pap Weight: 131 lb 9.855 oz Body Mass Index (BMI) 20.0 Finger Stick Blood Glucose 113 Laboratory Tests Past 24 Hrs 12/08/18 12/08/18 12/08/18 10:10 10:10 10:10 WBC 28.4 H RBC 3.72 L Hgb 11.6 L Hct 34.6 L MCV 93.0 MCH 31.2 MCHC 33.5 RDW 15.0 H RDW Differential 51.1 H Plt Count 260 MPV 8.7 Immature Gran % (Auto) 1.300 H Neut % (Auto) 89.3 H Lymph % (Auto) 5.4 L [place] % (Auto) 3.7 Eos % (Auto) 0.2 Baso % (Auto) 0.1 Absolute Neuts (auto) 25.4 H Absolute Lymphs (auto) 1.54 Total Counted Not Reportable Differential Comment COMMENT PT 23.0 H INR 2.0 APTT 60.9 H Specimen Type Sample Site pH Bicarbonate Actual POC Total CO2 Base Excess O2 Saturation ABG pCO2 ABG pO2 [place] Test O2 Delivery Device Liter Flow Blood Gas Notified Whom Blood Gas Notified Time Sodium 140 Potassium 3.6 Chloride 106 Carbon Dioxide 24.0 Anion Gap 10 BUN 36 H Creatinine 0.87 Estim Creat Clear Calc 59.95 Est GFR (MDRD) Af Amer 83 Est GFR (MDRD) Non-Af 69 BUN/Creatinine Ratio 41.2 H Glucose 95 Lactic Acid Calcium 8.9 Total Bilirubin 0.60 Direct Bilirubin 0.21 AST 10 L ALT 9 L Alkaline Phosphatase 220 H Troponin I < 0.015 B-Natriuretic Peptide Total Protein 7.4 Albumin 2.2 L Globulin 5.2 H Lipase 51 L Urine Color Urine Clarity Urine pH Ur Specific [place] Urine Protein Urine Glucose (UA) Urine Ketones Urine Occult Blood Urine Nitrite Urine Bilirubin Urine Urobilinogen Ur Leukocyte Esterase Urine RBC Urine WBC Ur Squamous Epith Cells Urine Bacteria Urine Mucus 12/08/18 12/08/18 12/08/18 10:10 10:10 10:18 WBC RBC Hgb Hct MCV MCH MCHC RDW RDW Differential Plt Count MPV Immature Gran % (Auto) Neut % (Auto) Lymph % (Auto) [place] % (Auto) Eos % (Auto) Baso % (Auto) Absolute Neuts (auto) Absolute Lymphs (auto) Total Counted Differential Comment PT INR APTT Specimen Type ART Sample Site R Radial pH 7.35 Bicarbonate Actual 22.4 POC Total CO2 24 Base Excess -3 L O2 Saturation 94 L ABG pCO2 40.8 ABG pO2 73 L [place] Test POS O2 Delivery Device Nasal Can Liter Flow 3.0 Blood Gas Notified Whom ED MD Blood Gas Notified Time 1017 Sodium Potassium Chloride Carbon Dioxide Anion Gap BUN Creatinine Estim Creat Clear Calc Est GFR (MDRD) Af Amer Est GFR (MDRD) Non-Af BUN/Creatinine Ratio Glucose Lactic Acid 1.0 Calcium Total Bilirubin Direct Bilirubin AST ALT Alkaline Phosphatase Troponin I B-Natriuretic Peptide 211.9 H Total Protein Albumin Globulin Lipase Urine Color Urine Clarity Urine pH Ur Specific [place] Urine Protein Urine Glucose (UA) Urine Ketones Urine Occult Blood Urine Nitrite Urine Bilirubin Urine Urobilinogen Ur Leukocyte Esterase Urine RBC Urine WBC Ur Squamous Epith Cells Urine Bacteria Urine Mucus 12/08/18 11:20 WBC RBC Hgb Hct MCV MCH MCHC RDW RDW Differential Plt Count MPV Immature Gran % (Auto) Neut % (Auto) Lymph % (Auto) [place] % (Auto) Eos % (Auto) Baso % (Auto) Absolute Neuts (auto) Absolute Lymphs (auto) Total Counted Differential Comment PT INR APTT Specimen Type Sample Site pH Bicarbonate Actual POC Total CO2 Base Excess O2 Saturation ABG pCO2 ABG pO2 [place] Test O2 Delivery Device Liter Flow Blood Gas Notified Whom Blood Gas Notified Time Sodium Potassium Chloride Carbon Dioxide Anion Gap BUN Creatinine Estim Creat Clear Calc Est GFR (MDRD) Af Amer Est GFR (MDRD) Non-Af BUN/Creatinine Ratio Glucose Lactic Acid Calcium Total Bilirubin Direct Bilirubin AST ALT Alkaline Phosphatase Troponin I B-Natriuretic Peptide Total Protein Albumin Globulin Lipase Urine Color Yellow Urine Clarity Clear Urine pH 6.0 Ur Specific [place] 1.015 Urine Protein 100 H Urine Glucose (UA) Normal Urine Ketones 5 H Urine Occult Blood 25 H Urine Nitrite Negative Urine Bilirubin Negative Urine Urobilinogen 1 H Ur Leukocyte Esterase 25 H Urine RBC 0-5 SEEN Urine WBC 0-5 SEEN Ur Squamous Epith Cells 0-5 SEEN Urine Bacteria 1+ Urine Mucus 0 SEEN Assessment/Plan All Active Problems (Last Reviewed 07/14/18 @ 10:23 by Sander Means MD) Sepsis (Acute) Pneumonia (Acute) Encephalopathy acute (Acute) Leukocytosis (Acute) Acute delirium (Resolved) Adrenal insufficiency (Resolved) Breakthrough seizure (Resolved) Gram-negative pneumonia (Resolved) Hypotension (Resolved) MRSA pneumonia (Resolved) Respiratory failure with hypercapnia (Resolved) Septic shock (Resolved) Tobacco user (Resolved)
[2018-12-08] MEDS: MethylPREDNISolone 125 MG/2 ML Vial IV (14:02)
--- NOTE | 2018-12-08 14:36 | PCM.HP.STD ---
Problem List (1) Acute and chronic respiratory failure with hypoxia Status: Chronic (2) COPD exacerbation Status: Acute (3) Nocturnal hypoxia Status: Chronic Comment: On CPAP and O2 at night (4) PRES (posterior reversible encephalopathy syndrome) Status: Chronic (5) Medication overuse headache Status: Chronic (6) Sepsis Status: Acute Qualifiers: Sepsis type: sepsis due to unspecified organism Qualified Code(s): A41.9 - Sepsis, unspecified organism (7) Pneumonia Status: Acute Qualifiers: Pneumonia type: due to unspecified organism Laterality: bilateral Lung location: unspecified part of lung Qualified Code(s): J18.9 - Pneumonia, unspecified organism (8) Encephalopathy acute Status: Acute (9) Anxiety and depression Status: Chronic (10) Tobacco abuse Status: Chronic (11) Leukocytosis Status: Acute Qualifiers: Leukocytosis type: bandemia Qualified Code(s): D72.825 - Bandemia (12) RENNY (obstructive sleep apnea) Status: Chronic (13) Mild diastolic dysfunction Status: Chronic (14) Depression Status: Chronic Qualifiers: Depression Type: major depressive disorder Major depression recurrence: recurrent Active/Remission status: currently active Major depression episode severity: moderate Qualified Code(s): F33.1 - Major depressive disorder, recurrent, moderate (15) Restless leg Status: Chronic (16) HTN (hypertension) Status: Chronic Qualifiers: Hypertension type: essential hypertension (17) Presbycusis of both ears Status: Chronic (18) COPD (chronic obstructive pulmonary disease) Status: Chronic Qualifiers: COPD type: unspecified COPD Qualified Code(s): J44.9 - Chronic obstructive pulmonary disease, unspecified; J44.9 - Chronic obstructive pulmonary disease, unspecified; J44.9 - Chronic obstructive pulmonary disease, unspecified; J44.9 - Chronic obstructive pulmonary disease, unspecified (19) Hypothyroidism Status: Chronic Qualifiers: Hypothyroidism type: unspecified Qualified Code(s): E03.9 - Hypothyroidism, unspecified (20) Pulmonary fibrosis Status: Chronic History of Present Illness Date of Admission: 12/08/18 Chief Complaint: Progressive worsening of shortness of breath for 3 days The patient is a 68 year old F with multiple comorbidities as listed above including COPD, lung fibrosis and recurrent admission for respiratory failure came to ER with progressive worsening of shortness of breath for 3 days along with dry cough, poor oral intake, labored breathing consistent with respiratory failure. Patient had chills but denies any fever. Blood pressure was low 97/72, improved with IV fluid normal saline bolus 2 L. ABG 7.3 / on 3 L of oxygen through nasal cannula. Patient has significant leukocytosis 28,000 with left shift. BUN 36, creatinine 0.87, BNP 211. UA shows proteinuria, LE 25 otherwise unremarkable The patient was not put on BiPAP. Chest x-ray shows poor ventilation with shallow inspiratory effort. Bibasilar consolidation/small effusion with chronic interstitial changes. [] Past Medical History Past Medical History (Chronic Problems): Chronic Problems (Last Reviewed 07/14/18 @ 10:23 by Sander Means MD) Acute and chronic respiratory failure with hypoxia (Chronic) Nocturnal hypoxia (Chronic) On CPAP and O2 at night PRES (posterior reversible encephalopathy syndrome) (Chronic) Medication overuse headache (Chronic) Anxiety and depression (Chronic) Tobacco abuse (Chronic) RENNY (obstructive sleep apnea) (Chronic) Mild diastolic dysfunction (Chronic) Depression (Chronic) Restless leg (Chronic) HTN (hypertension) (Chronic) Presbycusis of both ears (Chronic) COPD (chronic obstructive pulmonary disease) (Chronic) Hypothyroidism (Chronic) Pulmonary fibrosis (Chronic) Medical History: Medical History (Last Reviewed 07/14/18 @ 10:23 by Sander Means MD) Leukocytosis (Acute) D72.829 RENNY (obstructive sleep apnea) (Chronic) G47.33 Mild diastolic dysfunction (Chronic) I51.9 Depression (Chronic) F32.9 Restless leg (Chronic) HTN (hypertension) (Chronic) I10 Presbycusis of both ears (Chronic) H91.13 COPD (chronic obstructive pulmonary disease) (Chronic) J44.9 Hypothyroidism (Chronic) E03.9 Pulmonary fibrosis (Chronic) J84.10 COPD with acute exacerbation J44.1 Gallstones K80.20 Septic shock A41.9, R65.21 UTI (urinary tract infection) N39.0 Anxiety F41.9 Bronchitis J40 Carpal tunnel syndrome G56.00 Cataract H26.9 Chronic back pain M54.9, G89.29 Migraine G43.909 Osteopenia M85.80 Solitary pulmonary nodule R91.1 Stage 2 moderate COPD by GOLD classification J44.9 Tobacco abuse Z72.0 Acute delirium (Resolved) R41.0 Acute respiratory failure J96.00 Adrenal insufficiency (Resolved) E27.40 H/O: hysterectomy Z98.890, Z90.710 Hypersomnia G47.10 Hypotension (Resolved) I95.9 MRSA pneumonia (Resolved) J15.212 Respiratory failure with hypercapnia (Resolved) J96.92 Allergies Sulfa (Sulfonamide Antibiotics) Adverse Reaction (Intermediate, Verified 12/08/18 10:27) Other - Messes with blood counts prochlorperazine edisylate [From Compazine] Adverse Reaction (Mild, Verified 12/08/18 10:27) Other - Restless legs prochlorperazine maleate [From Compazine] Adverse Reaction (Mild, Verified 12/08/18 10:27) Other - Restless legs Home Medications: Ambulatory Orders Medication Instructions Recorded Pantoprazole Sodium [Protonix] 40 mg PO DAILY 08/23/16 Sertraline HCl [Zoloft] 50 mg PO DAILY 12/14/17 Levothyroxine Sodium [Synthroid] 150 mcg PO MOTUWETHFR 05/16/18 Divalproex Sodium 500 mg PO BID 09/27/18 Ropinirole HCl [Requip] 0.5 mg PO QHS 09/27/18 Albuterol Aerosols [Ventolin 2.5 mg INHALATION Q2H PRN PRN 09/29/18 Aerosols] vial.neb. Baclofen 5 - 10 mg PO TID PRN PRN 12/08/18 Budesonide/Formoterol Fumarate 2 puff IH BID 12/08/18 [Symbicort 160-4.5 Mcg Inhaler] Divalproex Sodium [Depakote] 250 mg PO DAILY 12/08/18 Ipratropium/Albuterol Sulfate 3 ml IH Q4H PRN PRN 12/08/18 [Iprat-Albut 0.5-3(2.5) mg/3 ml] Levetiracetam 500 mg PO BID 12/08/18 Lisinopril [Zestril] 10 mg PO DAILY 12/08/18 Melatonin 10 mg PO QHS 12/08/18 Rizatriptan Benzoate [Rizatriptan] 10 mg PO UD 12/08/18 Surgical History: Surgical History (Last Reviewed 07/14/18 @ 10:24 by Sander Means MD) Cochlear implant in place Z96.21 Dr Andrade 2014 H/O adenoidectomy Z98.890, Z90.89 History of cataract surgery Z98.49 History of cholecystectomy Z98.890, Z90.49 History of lung biopsy Z98.890 Hx of appendectomy Z98.890, Z90.49 Hx of left knee surgery Z98.890 joint lipoma removal vocal nodules removed Surgical History: appendectomy, cholecystectomy, hysterectomy, total hip arthroplasty - Right, - - thyroidectomy and BL intraocular lens implants,cochear implant Psychiatric History: Anxiety, Depression, - - Suspected narcotic dependence. PUBLIC INFORMATION COORDINATOR History: No pertinent PUBLIC INFORMATION COORDINATOR history Smoking Status: Current every day smoker Tobacco Use: Cigarettes - *Family History Maternal Family History: Family History (Last Reviewed 07/14/18 @ 10:24 by Sander Means MD) Mother Hypertension CVA (cerebral vascular accident) Father CVA (cerebral vascular accident) Hypertension Sister Colon cancer Grandfather Hypertension Heart disease History Items: Heart Disease, Stroke Paternal Family History: Family History (Last Reviewed 07/14/18 @ 10:24 by Sander Means MD) Mother Hypertension CVA (cerebral vascular accident) Father CVA (cerebral vascular accident) Hypertension Sister Colon cancer Grandfather Hypertension Heart disease History Items: Heart Disease, Stroke Sibling Family History: Family History (Last Reviewed 07/14/18 @ 10:24 by Sander Means MD) Mother Hypertension CVA (cerebral vascular accident) Father CVA (cerebral vascular accident) Hypertension Sister Colon cancer Grandfather Hypertension Heart disease History Items: - - sister with colon cancer Review of Systems Constitutional: Reports: Chills, Weakness, Fatigue Cardiovascular: Denies: Chest Pain, Palpitations Respiratory: Reports: Cough, Shortness of Breath, Shortness of breath upon exertion, Wheezing Gastrointestinal: Reports: Constipation. Denies: Abdominal Pain, Nausea, Vomiting Genitourinary: Denies: Dysuria Musculoskeletal: Reports: Joint Pain Skin: Reports: Dryness Neurological: Reports: Balance problems Psychiatric: Reports: Anxiety Unable to obtain accurate/complete ROS d/t: Mild confusion and respiratory failure. VTE Information - Inpt Only VTE Present on Admission: No VTE Mechan Device Prophylaxis: None VTE Pharm Prophylaxis ordered?: Yes Patient Problems: Active and Suspected Problems (Last Reviewed 07/14/18 @ 10:23 by Sander Means MD) COPD exacerbation (Acute) - Physical Exam General: Oriented x3, Cooperative, Lethargic HEENT: Atraumatic, PERRLA, EOMI, Normocephalic Oral: Dry Mucosa, - Neck: Supple - On BiPAP, No JVD, Negative Carotid Bruits Lungs: Diminished - Air entry severely diminished, Rhonchi, Short of Breath, Using Accessory Muscles, Wheezes, - - MediPort in the chest. Cardiovascular: Regular rate, Regular Rhythm, Normal S1, Normal S2 Abdomen: Bowel Sounds Present, Soft, Non Tender, Non-Distended Extremities: No edema, Capillary Refill Less than 3 Seconds Skin: No rashes, No breakdown Musculoskeletal: Arthritic Changes, Muscle Wasting Neurological: Cranial nerves II-XII grossly intact, Deep Tendon Reflexes 2+/4 and Symmetrical, Neuro grossly intact Psych/Mental Status: Anxious Vital Signs Temp Pulse Resp BP Pulse Ox 98.2 F 93 30 H 110/53 L 98 12/08/18 14:03 12/08/18 14:03 12/08/18 14:03 12/08/18 14:03 12/08/18 14:03 Oxygen Flow Rate (L/min) 3 Oxygen Delivery Method Bi-pap Weight: 131 lb 9.855 oz Body Mass Index (BMI) 20.0 Finger Stick Blood Glucose 113 Laboratory Tests Past 24 Hrs 12/08/18 12/08/18 12/08/18 10:10 10:10 10:10 WBC 28.4 H RBC 3.72 L Hgb 11.6 L Hct 34.6 L MCV 93.0 MCH 31.2 MCHC 33.5 RDW 15.0 H RDW Differential 51.1 H Plt Count 260 MPV 8.7 Immature Gran % (Auto) 1.300 H Neut % (Auto) 89.3 H Lymph % (Auto) 5.4 L [place] % (Auto) 3.7 Eos % (Auto) 0.2 Baso % (Auto) 0.1 Absolute Neuts (auto) 25.4 H Absolute Lymphs (auto) 1.54 Total Counted Not Reportable Differential Comment COMMENT PT 23.0 H INR 2.0 APTT 60.9 H Specimen Type Sample Site pH Bicarbonate Actual POC Total CO2 Base Excess O2 Saturation ABG pCO2 ABG pO2 Ronak Test O2 Delivery Device Liter Flow Blood Gas Notified Whom Blood Gas Notified Time Sodium 140 Potassium 3.6 Chloride 106 Carbon Dioxide 24.0 Anion Gap 10 BUN 36 H Creatinine 0.87 Estim Creat Clear Calc 59.95 Est GFR (MDRD) Af Amer 83 Est GFR (MDRD) Non-Af 69 BUN/Creatinine Ratio 41.2 H Glucose 95 Lactic Acid Calcium 8.9 Total Bilirubin 0.60 Direct Bilirubin 0.21 AST 10 L ALT 9 L Alkaline Phosphatase 220 H Troponin I < 0.015 B-Natriuretic Peptide Total Protein 7.4 Albumin 2.2 L Globulin 5.2 H Lipase 51 L Urine Color Urine Clarity Urine pH Ur Specific [place] Urine Protein Urine Glucose (UA) Urine Ketones Urine Occult Blood Urine Nitrite Urine Bilirubin Urine Urobilinogen Ur Leukocyte Esterase Urine RBC Urine WBC Ur Squamous Epith Cells Urine Bacteria Urine Mucus 12/08/18 12/08/18 12/08/18 10:10 10:10 10:18 WBC RBC Hgb Hct MCV MCH MCHC RDW RDW Differential Plt Count MPV Immature Gran % (Auto) Neut % (Auto) Lymph % (Auto) [place] % (Auto) Eos % (Auto) Baso % (Auto) Absolute Neuts (auto) Absolute Lymphs (auto) Total Counted Differential Comment PT INR APTT Specimen Type ART Sample Site R Radial pH 7.35 Bicarbonate Actual 22.4 POC Total CO2 24 Base Excess -3 L O2 Saturation 94 L ABG pCO2 40.8 ABG pO2 73 L Ronak Test POS O2 Delivery Device Nasal Can Liter Flow 3.0 Blood Gas Notified Whom ED Blood Gas Notified Time 1017 Sodium Potassium Chloride Carbon Dioxide Anion Gap BUN Creatinine Estim Creat Clear Calc Est GFR (MDRD) Af Amer Est GFR (MDRD) Non-Af BUN/Creatinine Ratio Glucose Lactic Acid 1.0 Calcium Total Bilirubin Direct Bilirubin AST ALT Alkaline Phosphatase Troponin I B-Natriuretic Peptide 211.9 H Total Protein Albumin Globulin Lipase Urine Color Urine Clarity Urine pH Ur Specific [place] Urine Protein Urine Glucose (UA) Urine Ketones Urine Occult Blood Urine Nitrite Urine Bilirubin Urine Urobilinogen Ur Leukocyte Esterase Urine RBC Urine WBC Ur Squamous Epith Cells Urine Bacteria Urine Mucus 12/08/18 11:20 WBC RBC Hgb Hct MCV MCH MCHC RDW RDW Differential Plt Count MPV Immature Gran % (Auto) Neut % (Auto) Lymph % (Auto) [place] % (Auto) Eos % (Auto) Baso % (Auto) Absolute Neuts (auto) Absolute Lymphs (auto) Total Counted Differential Comment PT INR APTT Specimen Type Sample Site pH Bicarbonate Actual POC Total CO2 Base Excess O2 Saturation ABG pCO2 ABG pO2 Ronak Test O2 Delivery Device Liter Flow Blood Gas Notified Whom Blood Gas Notified Time Sodium Potassium Chloride Carbon Dioxide Anion Gap BUN Creatinine Estim Creat Clear Calc Est GFR (MDRD) Af Amer Est GFR (MDRD) Non-Af BUN/Creatinine Ratio Glucose Lactic Acid Calcium Total Bilirubin Direct Bilirubin AST ALT Alkaline Phosphatase Troponin I B-Natriuretic Peptide Total Protein Albumin Globulin Lipase Urine Color Yellow Urine Clarity Clear Urine pH 6.0 Ur Specific [place] 1.015 Urine Protein 100 H Urine Glucose (UA) Normal Urine Ketones 5 H Urine Occult Blood 25 H Urine Nitrite Negative Urine Bilirubin Negative Urine Urobilinogen 1 H Ur Leukocyte Esterase 25 H Urine RBC 0-5 SEEN Urine WBC 0-5 SEEN Ur Squamous Epith Cells 0-5 SEEN Urine Bacteria 1+ Urine Mucus 0 SEEN Assessment/Plan All Active Problems (Last Reviewed 07/14/18 @ 10:23 by Sander Means MD) COPD exacerbation (Acute) Sepsis (Acute) Pneumonia (Acute) Encephalopathy acute (Acute) Leukocytosis (Acute) Acute delirium (Resolved) Adrenal insufficiency (Resolved) Breakthrough seizure (Resolved) Gram-negative pneumonia (Resolved) Hypotension (Resolved) MRSA pneumonia (Resolved) Respiratory failure with hypercapnia (Resolved) Septic shock (Resolved) Tobacco user (Resolved) The patient is a 68 year old F with multiple comorbidities as listed above including COPD, lung fibrosis and recurrent admission for respiratory failure came to ER with progressive worsening of shortness of breath for 3 days along with dry cough, poor oral intake, labored breathing consistent with respiratory failure. Patient had chills but denies any fever. Blood pressure was low 97/72, improved with IV fluid normal saline bolus 2 L. ABG 7.3 / on 3 L of oxygen through nasal cannula. Patient has significant leukocytosis 28,000 with left shift. BUN 36, creatinine 0.87, BNP 211. UA shows proteinuria, LE 25 otherwise unremarkable The patient was not put on BiPAP. Chest x-ray shows poor ventilation with shallow inspiratory effort. Bibasilar consolidation/small effusion with chronic interstitial changes. 1. Acute on chronic hypoxic respiratory failure, most probably from pneumonia/COPD exacerbation: Patient is being admitted in ICU. On BiPAP with close monitoring of respiratory status. If respiratory failure worsens, will need intubation. Seafood Processor consult. BNP 211, not very high suggestive of heart failure but may be from pulmonary cause. Patient does not have fluid overload/edema symptoms or signs. INR 2.0, PTT 60.9. The patient is not on anticoagulant therefore most probably secondary to sepsis 2. COPD exacerbation with sepsis probably from pneumonia: The patient has a leukocytosis, lactic acid normal. Pneumonia work-up is ordered. Empirically started on IV ceftriaxone and Zithromax. MRSA nasal screen. On bronchodilator, IV Solu-Medrol, incentive spirometry and chest physiotherapy. 3. Chronic pulmonary fibrosis/interstitial lung disease: May need to repeat echo if respiratory condition does not improve, to evaluate right side of heart. Patient last echo in October 2016 reported as normal LV size with function, EF 55%. Normal RV size and systolic function. Valvular anatomy and function normal. 4. Hypertension-was hypotensive in the ER. Required IV fluid boluses resuscitation. Currently 110/53. Monitor. Hold antihypertensive medication. 5. Tobacco dependence-encouraged smoking cessation. 6. Seizure disorder-continue home Keppra, divalproex regimen. 7. Hypothyroidism-continue home Synthroid regimen. TSH and free T4 tomorrow a.m. 8. Anxiety/depression with anemia of chronic disease-during previous admission in September 2018, H&H was 8.8/28 but currently 11.6/34.6. Continue home Zoloft and Risperdal regimen. 9. RENNY-continue CPAP regimen. 10. RLS-continue Requip regimen. 11. GERD-continue PPI. DVT prophylaxis: Lovenox 40 subcu from tomorrow a.m. Advanced directive/care of life call: Advanced directive discussed with the patient's as the patient was mildly lethargic and on BiPAP. Out of all options given full code, DNR CC arrest and DNR CC, he wanted full code. Patient for a full resuscitation including intubation, vent management tube feeding and vasopressor support. Patient has MediPort in the chest. Laboratory Results 12/08/18 10:10: WBC 28.4 H, RBC 3.72 L, Hgb 11.6 L, Hct 34.6 L, MCV 93.0, MCH 31.2, MCHC 33.5, RDW 15.0 H, RDW Differential 51.1 H, Plt Count 260, MPV 8.7, Immature Gran % (Auto) 1.300 H, Neut % (Auto) 89.3 H, Lymph % (Auto) 5.4 L, [place] % (Auto) 3.7, Eos % (Auto) 0.2, Baso % (Auto) 0.1, Absolute Neuts (auto) 25.4 H, Absolute Lymphs (auto) 1.54, Total Counted Not Reportable, Differential Comment COMMENT 12/08/18 10:10: PT 23.0 H, INR 2.0, APTT 60.9 H 12/08/18 10:10: Sodium 140, Potassium 3.6, Chloride 106, Carbon Dioxide 24.0, Anion Gap 10, BUN 36 H, Creatinine 0.87, Estim Creat Clear Calc 59.95, Est GFR (MDRD) Af Amer 83, Est GFR (MDRD) Non-Af 69, BUN/Creatinine Ratio 41.2 H, Glucose 95, Calcium 8.9, Total Bilirubin 0.60, Direct Bilirubin 0.21, AST 10 L, ALT 9 L, Alkaline Phosphatase 220 H, Troponin I < 0.015, Total Protein 7.4, Albumin 2.2 L, Globulin 5.2 H, Lipase 51 L 12/08/18 10:10: Lactic Acid 1.0 12/08/18 10:10: B-Natriuretic Peptide 211.9 H 12/08/18 10:18: Specimen Type ART, Sample Site R Radial, pH 7.35, Bicarbonate Actual 22.4, POC Total CO2 24, Base Excess -3 L, O2 Saturation 94 L, ABG pCO2 40.8, ABG pO2 73 L, Ronak Test POS, O2 Delivery Device Nasal Can, Liter Flow 3.0, Blood Gas Notified Whom ED , Blood Gas Notified Time 1017 12/08/18 11:20: Urine Color Yellow, Urine Clarity Clear, Urine pH 6.0, Ur Specific [place] 1.015, Urine Protein 100 H, Urine Glucose (UA) Normal, Urine Ketones 5 H, Urine Occult Blood 25 H, Urine Nitrite Negative, Urine Bilirubin Negative, Urine Urobilinogen 1 H, Ur Leukocyte Esterase 25 H, Urine RBC 0-5 SEEN, Urine WBC 0-5 SEEN, Ur Squamous Epith Cells 0-5 SEEN, Urine Bacteria 1+, Urine Mucus 0 SEEN Clinical Impression(s) from Imaging Studies Chest X-Ray 12/08/18 09:45 IMPRESSION: 1. Shallow inspiratory effort limiting evaluation of the lung bases. Bibasilar consolidation/small effusions cannot be entirely excluded. 2. Chronic interstitial changes plus or minus superimposed foci of pneumonitis. Code Visit Inpatient E&M: 25474 Init Hosp L3
--- NOTE | 2018-12-08 15:08 | PCM.CON.CC ---
Reason for Consult Date of Consultation: 12/08/18 Reason for Consultation: Acute on Chronic Respiratory Failure History of Present Illness: The patient is a 68-year-old female, with a history as outlined below, who presented to the emergency department on December 08 with complaints of worsening shortness of breath, which the patient reports has been present now for several months duration. The patient has known severe COPD based upon pulmonary function testing completed in June 2018. She also has chronic hypoxemic respiratory failure with a baseline 2 L/min requirement along with obstructive sleep apnea, for which she is currently prescribed nocturnal CPAP therapy. The patient was last seen in the pulmonary medicine clinic by Dr. Diallo in March 2018. The patient was supposed to follow-up in June 2018 in our office, but stated that she developed seizures and had to be hospitalized. She never called to reschedule that appointment. The patient does have an extensive smoking history, but claims to have cut back to smoking only occasionally. On presentation to the emergency department, the patient was noted to be afebrile, tachycardic and tachypneic. Due to her increased work of breathing, she was placed immediately on BiPAP therapy. Laboratory evaluation revealed an elevated white blood cell count to 28,000. INR was noted to be 2.0. Arterial blood gas obtained on 3 L/min of supplemental oxygen revealed a pH of 7.35 with a corresponding PCO2 of 40 and PO2 of 73. Chemistry profile was largely unremarkable. Troponin was negative. BNP was mildly elevated to 211. MRSA screen was negative. Plain film chest x-ray revealed suboptimal inspiratory effort with chronic interstitial prominence. Due to the patient's need for noninvasive positive pressure ventilatory support, she was transferred to the medical intensive care unit, after receiving supplemental IV fluids and IV antibiotics. Past Medical History Past Medical History (Chronic Problems): Chronic Problems (Last Reviewed 07/14/18 @ 10:23 by Sander Means MD) Acute and chronic respiratory failure with hypoxia (Chronic) Nocturnal hypoxia (Chronic) On CPAP and O2 at night PRES (posterior reversible encephalopathy syndrome) (Chronic) Medication overuse headache (Chronic) Anxiety and depression (Chronic) Tobacco abuse (Chronic) RENNY (obstructive sleep apnea) (Chronic) Mild diastolic dysfunction (Chronic) Depression (Chronic) Restless leg (Chronic) HTN (hypertension) (Chronic) Presbycusis of both ears (Chronic) COPD (chronic obstructive pulmonary disease) (Chronic) Hypothyroidism (Chronic) Pulmonary fibrosis (Chronic) Medical History: Medical History (Last Reviewed 07/14/18 @ 10:23 by Sander Means MD) Leukocytosis (Acute) D72.829 RENNY (obstructive sleep apnea) (Chronic) G47.33 Mild diastolic dysfunction (Chronic) I51.9 Depression (Chronic) F32.9 Restless leg (Chronic) HTN (hypertension) (Chronic) I10 Presbycusis of both ears (Chronic) H91.13 COPD (chronic obstructive pulmonary disease) (Chronic) J44.9 Hypothyroidism (Chronic) E03.9 Pulmonary fibrosis (Chronic) J84.10 COPD with acute exacerbation J44.1 Gallstones K80.20 Septic shock A41.9, R65.21 UTI (urinary tract infection) N39.0 Anxiety F41.9 Bronchitis J40 Carpal tunnel syndrome G56.00 Cataract H26.9 Chronic back pain M54.9, G89.29 Migraine G43.909 Osteopenia M85.80 Solitary pulmonary nodule R91.1 Stage 2 moderate COPD by GOLD classification J44.9 Tobacco abuse Z72.0 Acute delirium (Resolved) R41.0 Acute respiratory failure J96.00 Adrenal insufficiency (Resolved) E27.40 H/O: hysterectomy Z98.890, Z90.710 Hypersomnia G47.10 Hypotension (Resolved) I95.9 MRSA pneumonia (Resolved) J15.212 Respiratory failure with hypercapnia (Resolved) J96.92 Allergies Sulfa (Sulfonamide Antibiotics) Adverse Reaction (Intermediate, Verified 12/08/18 10:27) Other - Messes with blood counts prochlorperazine edisylate [From Compazine] Adverse Reaction (Mild, Verified 12/08/18 10:27) Other - Restless legs prochlorperazine maleate [From Compazine] Adverse Reaction (Mild, Verified 12/08/18 10:27) Other - Restless legs Home Medications: Ambulatory Orders Medication Instructions Recorded Pantoprazole Sodium [Protonix] 40 mg PO DAILY 08/23/16 Sertraline HCl [Zoloft] 50 mg PO DAILY 12/14/17 Levothyroxine Sodium [Synthroid] 150 mcg PO MOTUWETHFR 05/16/18 Divalproex Sodium 500 mg PO BID 09/27/18 Ropinirole HCl [Requip] 0.5 mg PO QHS 09/27/18 Albuterol Aerosols [Ventolin 2.5 mg INHALATION Q2H PRN PRN 09/29/18 Aerosols] vial.neb. Baclofen 5 - 10 mg PO TID PRN PRN 12/08/18 Budesonide/Formoterol Fumarate 2 puff IH BID 12/08/18 [Symbicort 160-4.5 Mcg Inhaler] Divalproex Sodium [Depakote] 250 mg PO DAILY 12/08/18 Ipratropium/Albuterol Sulfate 3 ml IH Q4H PRN PRN 12/08/18 [Iprat-Albut 0.5-3(2.5) mg/3 ml] Levetiracetam 500 mg PO BID 12/08/18 Lisinopril [Zestril] 10 mg PO DAILY 12/08/18 Melatonin 10 mg PO QHS 12/08/18 Rizatriptan Benzoate [Rizatriptan] 10 mg PO UD 12/08/18 Surgical History: Surgical History (Last Reviewed 07/14/18 @ 10:24 by Sander Means MD) Cochlear implant in place Z96.21 Dr Andrade 2014 H/O adenoidectomy Z98.890, Z90.89 History of cataract surgery Z98.49 History of cholecystectomy Z98.890, Z90.49 History of lung biopsy Z98.890 Hx of appendectomy Z98.890, Z90.49 Hx of left knee surgery Z98.890 joint lipoma removal vocal nodules removed Surgical History: appendectomy, cholecystectomy, hysterectomy, total hip arthroplasty - Right, - - thyroidectomy and BL intraocular lens implants,cochear implant Psychiatric History: Anxiety, Depression, - - Suspected narcotic dependence. 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 Smoking Status: Current every day smoker Tobacco Use: Cigarettes - *Family History Maternal Family History: Family History (Last Reviewed 07/14/18 @ 10:24 by Sander Means MD) Mother Hypertension CVA (cerebral vascular accident) Father CVA (cerebral vascular accident) Hypertension Sister Colon cancer Grandfather Hypertension Heart disease History Items: Heart Disease, Stroke Paternal Family History: Family History (Last Reviewed 07/14/18 @ 10:24 by Sander Means MD) Mother Hypertension CVA (cerebral vascular accident) Father CVA (cerebral vascular accident) Hypertension Sister Colon cancer Grandfather Hypertension Heart disease History Items: Heart Disease, Stroke Sibling Family History: Family History (Last Reviewed 07/14/18 @ 10:24 by Sander Means MD) Mother Hypertension CVA (cerebral vascular accident) Father CVA (cerebral vascular accident) Hypertension Sister Colon cancer Grandfather Hypertension Heart disease History Items: - - sister with colon cancer Review of Systems Constitutional: Denies: Chills, Fever Eyes: Denies: Blurred vision, Double vision HEENT: Reports: Difficulty Hearing, Hard of Hearing Cardiovascular: Denies: Chest Pain, Palpitations Respiratory: Reports: Shortness of Breath. Denies: Cough Gastrointestinal: Denies: Abdominal Pain, Nausea, Vomiting Genitourinary: Denies: Dysuria Musculoskeletal: Denies: Joint Pain, Joint Tenderness Skin: Denies: Rash, Wounds Neurological: Reports: Seizures Psychiatric: Reports: Anxiety Hematologic/ Lymphatic: Denies: Easy Bruising, Easy Bleeding Patient Problems: Active and Suspected Problems (Last Reviewed 07/14/18 @ 10:23 by Sander Means MD) COPD exacerbation (Acute) Objective: The patient's most recent lab work, culture data and imaging studies have all been personally reviewed. Surface echocardiogram from October 2016 revealed normal LV size and function with an ejection fraction of 55%. Polysomnogram completed in 2015 revealed the need for nocturnal CPAP therapy with a pressure support of 10 cm of water. Strep and urine Legionella antigens were negative. Blood cultures are pending. - Physical Exam General: Alert, Cooperative, - - Currently tolerating BiPAP. Difficult to communicate with the patient as the battery in her cochlear implant is currently . HEENT: Atraumatic, PERRLA, Normocephalic Oral: Dry Mucosa Neck: Supple, No Nodes, Trachea Midline Lungs: Tachypneic, - - Diminished air movement bilaterally with rales present, left greater than right. Cardiovascular: Regular rate, Regular Rhythm, Normal S1, Normal S2 Abdomen: Bowel Sounds Present, Soft, Non Tender Extremities: No cyanosis, No edema Skin: - - Ecchymoses noted over forearms. Musculoskeletal: No Tenderness to Palpation of Joints or Extremities Lymphatic: No Cervical, Supraclavicular, or Inguinal Adenopathy Neurological: - - No focal neurological deficits. Psych/Mental Status: Anxious, Restless Vital Signs Temp Pulse Resp BP Pulse Ox 98.2 F 93 30 H 110/53 L 98 12/08/18 14:03 12/08/18 14:03 12/08/18 14:03 12/08/18 14:03 12/08/18 14:03 Oxygen Flow Rate (L/min) 3 Oxygen Delivery Method Bi-pap Weight: 131 lb 9.855 oz Body Mass Index (BMI) 20.0 Finger Stick Blood Glucose 113 Laboratory Tests Past 24 Hrs 12/08/18 12/08/18 12/08/18 10:10 10:10 10:10 WBC 28.4 H RBC 3.72 L Hgb 11.6 L Hct 34.6 L MCV 93.0 MCH 31.2 MCHC 33.5 RDW 15.0 H RDW Differential 51.1 H Plt Count 260 MPV 8.7 Immature Gran % (Auto) 1.300 H Neut % (Auto) 89.3 H Lymph % (Auto) 5.4 L [place] % (Auto) 3.7 Eos % (Auto) 0.2 Baso % (Auto) 0.1 Absolute Neuts (auto) 25.4 H Absolute Lymphs (auto) 1.54 Total Counted Not Reportable Differential Comment COMMENT PT 23.0 H INR 2.0 APTT 60.9 H Specimen Type Sample Site pH Bicarbonate Actual POC Total CO2 Base Excess O2 Saturation ABG pCO2 ABG pO2 Ronak Test O2 Delivery Device Liter Flow Blood Gas Notified Whom Blood Gas Notified Time Sodium 140 Potassium 3.6 Chloride 106 Carbon Dioxide 24.0 Anion Gap 10 BUN 36 H Creatinine 0.87 Estim Creat Clear Calc 59.95 Est GFR (MDRD) Af Amer 83 Est GFR (MDRD) Non-Af 69 BUN/Creatinine Ratio 41.2 H Glucose 95 Lactic Acid Calcium 8.9 Total Bilirubin 0.60 Direct Bilirubin 0.21 AST 10 L ALT 9 L Alkaline Phosphatase 220 H Troponin I < 0.015 B-Natriuretic Peptide Total Protein 7.4 Albumin 2.2 L Globulin 5.2 H Lipase 51 L Urine Color Urine Clarity Urine pH Ur Specific [place] Urine Protein Urine Glucose (UA) Urine Ketones Urine Occult Blood Urine Nitrite Urine Bilirubin Urine Urobilinogen Ur Leukocyte Esterase Urine RBC Urine WBC Ur Squamous Epith Cells Urine Bacteria Urine Mucus 12/08/18 12/08/18 12/08/18 10:10 10:10 10:18 WBC RBC Hgb Hct MCV MCH MCHC RDW RDW Differential Plt Count MPV Immature Gran % (Auto) Neut % (Auto) Lymph % (Auto) [place] % (Auto) Eos % (Auto) Baso % (Auto) Absolute Neuts (auto) Absolute Lymphs (auto) Total Counted Differential Comment PT INR APTT Specimen Type ART Sample Site R Radial pH 7.35 Bicarbonate Actual 22.4 POC Total CO2 24 Base Excess -3 L O2 Saturation 94 L ABG pCO2 40.8 ABG pO2 73 L Ronak Test POS O2 Delivery Device Nasal Can Liter Flow 3.0 Blood Gas Notified Whom ED MD Blood Gas Notified Time 1017 Sodium Potassium Chloride Carbon Dioxide Anion Gap BUN Creatinine Estim Creat Clear Calc Est GFR (MDRD) Af Amer Est GFR (MDRD) Non-Af BUN/Creatinine Ratio Glucose Lactic Acid 1.0 Calcium Total Bilirubin Direct Bilirubin AST ALT Alkaline Phosphatase Troponin I B-Natriuretic Peptide 211.9 H Total Protein Albumin Globulin Lipase Urine Color Urine Clarity Urine pH Ur Specific [place] Urine Protein Urine Glucose (UA) Urine Ketones Urine Occult Blood Urine Nitrite Urine Bilirubin Urine Urobilinogen Ur Leukocyte Esterase Urine RBC Urine WBC Ur Squamous Epith Cells Urine Bacteria Urine Mucus 12/08/18 11:20 WBC RBC Hgb Hct MCV MCH MCHC RDW RDW Differential Plt Count MPV Immature Gran % (Auto) Neut % (Auto) Lymph % (Auto) [place] % (Auto) Eos % (Auto) Baso % (Auto) Absolute Neuts (auto) Absolute Lymphs (auto) Total Counted Differential Comment PT INR APTT Specimen Type Sample Site pH Bicarbonate Actual POC Total CO2 Base Excess O2 Saturation ABG pCO2 ABG pO2 Ronak Test O2 Delivery Device Liter Flow Blood Gas Notified Whom Blood Gas Notified Time Sodium Potassium Chloride Carbon Dioxide Anion Gap BUN Creatinine Estim Creat Clear Calc Est GFR (MDRD) Af Amer Est GFR (MDRD) Non-Af BUN/Creatinine Ratio Glucose Lactic Acid Calcium Total Bilirubin Direct Bilirubin AST ALT Alkaline Phosphatase Troponin I B-Natriuretic Peptide Total Protein Albumin Globulin Lipase Urine Color Yellow Urine Clarity Clear Urine pH 6.0 Ur Specific [place] 1.015 Urine Protein 100 H Urine Glucose (UA) Normal Urine Ketones 5 H Urine Occult Blood 25 H Urine Nitrite Negative Urine Bilirubin Negative Urine Urobilinogen 1 H Ur Leukocyte Esterase 25 H Urine RBC 0-5 SEEN Urine WBC 0-5 SEEN Ur Squamous Epith Cells 0-5 SEEN Urine Bacteria 1+ Urine Mucus 0 SEEN Clinical Impression(s) from Imaging Studies Chest X-Ray 12/08/18 09:45 IMPRESSION: 1. Shallow inspiratory effort limiting evaluation of the lung bases. Bibasilar consolidation/small effusions cannot be entirely excluded. 2. Chronic interstitial changes plus or minus superimposed foci of pneumonitis. at 1232 Reported and signed by: Josh Serrato MD Electronically Signed: Josh Serrato MD at 12:31 EDT Tel , Service support , Assessment/Plan Active and Suspected Problems (Last Reviewed 07/14/18 @ 10:23 by Sander Means MD) COPD exacerbation (Acute) RECOMMENDATIONS: 1. Continue antibiotics, steroids and bronchodilators. 2. Continue BiPAP therapy and wean as tolerated. 3. Obtain CTA chest to evaluate for parenchymal lung changes along with venous thromboembolic disease. 4. The patient needs to be scheduled in the pulmonary medicine clinic within 2 weeks of her discharge. She has been lost to follow-up since March 2018. 5. Smoking cessation is advisable. IMPRESSIONS: 1. Acute on chronic hypoxemic respiratory failure While the patient has been placed on empiric antibiotics over concerns for pneumonia, I am more concerned that the findings noted on chest x-ray could represent progressive interstitial lung disease. In addition, the patient's complaints of shortness of breath are likely the consequence of the fact that she is not utilizing her maintenance inhalers as she is supposed to in her home environment. She has known severe COPD and does continue to smoke cigarettes. At this time, I would plan to continue antibiotics, bronchodilators and steroids. I am also going to obtain a CTA chest to evaluate the patient's parenchymal lung disease and to ensure that the patient does not have any form of venous thromboembolic disease. She will be continued on BiPAP as needed. 2. Severe obstructive lung disease/interstitial lung disease/continued tobacco dependency As noted above, the patient is currently prescribed Symbicort 2 puffs twice daily but states that she is only been utilizing it one time per day. The patient appears somewhat confused as to what her outpatient inhaler regimen should entail. In addition, her reliance on her rescue inhaler is quite frequent. She would likely best be served by being placed on a triple therapy inhaler regimen. In addition, smoking cessation is imperative. This was discussed with the patient. She will require close interval follow-up in the pulmonary medicine clinic with Dr. Diallo after discharge. 3. Obstructive sleep apnea Continue nocturnal Pap therapy. 4. Hypertension/unspecified seizure disorder/hypothyroidism/anxiety/depression Complicates care, management, recovery and prognosis. Continue home medications as indicated. The patient will require physical therapy evaluation once she has been weaned from continuous BiPAP therapy. This note was generated with [email or web address] dictation software. It may contain incorrect words, spelling, and punctuation that were not noted in checking the note before signing. Code Visit Inpatient E&M: 77083 Init Hosp L3
--- NOTE | 2018-12-08 15:16 | CASEMGMT ---
RN CM Note: Attempted to see pt x 2. Physicians, nursing working with pt who is now on Bipap. Family not available. RN CM assessment deferred. Camille GOELN RN ACM
--- NOTE | 2018-12-08 15:18 | CT_ITS ---
HISTORY: Hypoxaemia COMPARISON: Chest x-ray performed earlier same day and CTA chest 04/27/2016 TECHNIQUE: Helical CT axial images of the thorax with 75ml ml of Isovue 370 intravenous contrast. Multiplanar reconstruction. 3-D image processing was also performed. A radiation dose optimization technique was used for this scan. # of images incl. paperwork: [id number] FINDINGS: Motion degradation limits this exam. VASCULAR: No filling defects are seen within the pulmonary arteries. Normal contrast opacification of the pulmonary arteries. Thoracic aorta is normal in caliber without aneurysm. No aortic dissection. Moderate ASVD. The pulmonary vasculature demonstrates no significant dilatation. LUNGS: Mildly elevated right hemidiaphragm. Moderately advanced pulmonary emphysema. Mild bronchiectasis bilateral upper lobes. There are scattered patchy areas of alveolar densities predominantly within the periphery of bilateral lower lobes and lingula. There is superimposed reticular and reticulonodular densities throughout periphery of bilateral lungs. MEDIASTINUM: Mild bilateral hilar lymphadenopathy. A few scattered borderline enlarged mediastinal lymph nodes. PLEURA: No pleural effusion. No pneumothorax. CARDIAC: Normal heart size. No pericardial effusion. CHEST WALL: Right Artoek-m-Mwhn catheter in place. Chest wall is intact. No abnormal axillary lymphadenopathy. BONES: No suspicious osseous lytic or blastic lesions seen. UPPER ABDOMEN: The visualized upper abdomen demonstrates no acute abnormality. CT/CTA Chest W/WO Contrast IMPRESSION: 1. No acute pulmonary embolus. 2. Moderately advanced pulmonary emphysema and interval worsening of chronic interstitial lung disease. 3. Scattered patchy alveolar densities within the periphery of bilateral lower lobes and lingula suspicious for pneumonitis. 4. Mild bilateral hilar lymphadenopathy with interval worsening, these are likely reactive in nature. A few scattered borderline enlarged mediastinal lymph nodes. Individualized dose optimization techniques were used for this CT. at 1701 Reported and signed by: Josh Serrato MD Electronically Signed: Josh Serrato MD at 17:00 EDT Tel , Service support ,
--- NOTE | 2018-12-08 16:36 | ED.VISSUMM ---
- ER Visit Summary Date of Service: 12/08/18 Chief Complaint: Dyspnea History of Present Illness: The patient is a 68 F who is brought in from home and her with a complaint of progressive dyspnea for 1 week. Noted cough no significant sputum production. She is functionally nonambulatory and he also notes increased confusion. Confusion is not essentially new however the neurologist have changed her medications around. He notes that she has not been eating and normally she should. History of COPD and pulmonary fibrosis she follows with Dr. Diallo. Also diagnosed with seizures secondary to Parkinson's she wears home oxygen. Is a smoker. Physical Examination: 97/72 heart rate of 110 temperature 98.2 respiratory rate 36 pulse ox 93% on 3 L Gen: Well-nourished well-developed Head: Normocephalic atraumatic Eyes: Perrl EOMI ENT: TMs clear no rhinorrhea moist mucous membranes Neck: Supple no lymphadenopathy no JVD nontender CVS: Regular rate tachycardic rhythm no murmurs normal S1-S2 Respiratory: Diminished breath sounds tachypnea chest nontender Abdomen: Soft nontender nondistended normal bowel sounds no masses Back: Nontender Extremity: Nontender no edema Skin: Normal color no rash Neuro: Lethargic but will speak she is ANO x2 Test Results: Chest x-ray shows poor effort but cannot rule out bibasilar infiltrates. EKG sinus at a rate of 97. White count at 28.4. ABG with his pH is 7.35 bicarb of 20.4 PO2 73 and a CO2 of 40.8. INR is 2. Emergency Department Course and Treatment: Patient received IV fluids oxygen breathing treatments Solu-Medrol Rocephin and azithromycin was placed on BiPAP. Patient will be admitted to the intensive care unit. Dr. Prather and Dr. Palacios were contacted. Impression: 1. Acute respiratory failure 2. Pneumonia 3. Sepsis 4. Critical care time 35 minutes This note was generated with Tube2[employer] dictation software. It may contain incorrect words, spelling, and punctuation that were not noted in review of the chart prior to signing ED Disposition - Plan for ED Patient: Disposition: Acute Care [facility]
[2018-12-08] MEDS: Acetaminophen 325 MG Tablet 650 MG PO (18:46)
[2018-12-08 19:18] LABS: M R Staph aureus DNA By PCR Negative (Negative); Probe Check PASS; Specimen Processing Control PASS
[2018-12-08] MEDS: BENZOCAINE/MENTHOL 1 LOZENGE MUCOUS MEM (19:42)
[2018-12-08] MEDS: Famotidine 20 MG Tablet PO (20:56)
[2018-12-08] MEDS: guaiFENesin 1,200 MG Tablet 1200 MG PO (20:56)
[2018-12-09] VITALS (29 sets, daily range): BP systolic 98–150; BP diastolic 38–72; PULSE 67–102; RESP 12–34; TEMP 36.5–37.3; O2SAT 25–100
[2018-12-09] MEDS: Ipratropium/Albuterol Sulfate 3 ML AMPUL.NEB INHALATION ×6 (03:45→22:16)
[2018-12-09 04:32] LABS: Absolute Lymphocyte Count 0.32 X10^3/ul (0.83-4.51); Absolute Neutrophil Count 11.4 X10^3/uL (2.0-7.7); Basophil# 0.02 X10^3/uL; Basophil% 0.2 % (0-1); Hematocrit 30.2 % (37-47); Hemoglobin 9.8 g/dl (12.0-15.0); Lymphocyte # 0.32 X10^3/ul (4.0); Lymphocyte % 2.6 % (19-41); Mean Corp Hgb Conc 32.5 g/gl (32-36); Mean Corpuscular Hgb 30.7 pg (27.0-32.0); Mean Corpuscular Volume 94.7 fL (81-99); Mean Platelet Vol. 8.8 fl (6.2-12.0); Monocyte# 0.37 X10^3/uL; Neutrophil # 11.42 X10^3/uL (2.7-7.7); Neutrophil % 93.8 % (47-70); Platelet Count 180 K/mm3 (150-450); RBC Distribution Width SD 51.7 fl (35.1-43.9); Red Blood Count 3.19 M/mm3 (4.2-5.4); White Blood Count 12.2 K/mm3 (4.4-11.0)
[2018-12-09 04:34] LABS: Differential Indicated SCAN CRITERIA MET; POSITIVE COUNT NO; POSITIVE DIFFERENTIAL YES; POSITIVE MORPHOLOGY NO
[2018-12-09 04:43] LABS: BUN 26 mg/dL (7-18); Creatinine, Serum 0.69 mg/dL (0.55-1.02); EST Glomerular Filtration Rate 90 mL/min (>60); Estimated Creatinine Clearance 52.15 ml/min; Glucose 101 mg/dL (74-106)
[2018-12-09 04:44] LABS: Anion Gap 7 (5-15); BUN/Creat Ratio 37.7 RATIO (10-20); Calcium,Total 8.2 mg/dL (8.5-10.1); Chloride 109 mmol/L (98-107); Est Glom Filt Rate - Afr Amer 109 mL/min (>60); Magnesium 2.5 mg/dL (1.6-2.6); Potassium 4.1 mmol/L (3.5-5.1); Sodium Level 139 mmol/L (136-145); T4 Free Direct 1.23 ng/dL (0.76-1.46); Thyroid Stim Hormone (TSH) 0.04 uIU/mL (0.358-3.74)
[2018-12-09] MEDS: BENZOCAINE/MENTHOL 1 LOZENGE MUCOUS MEM ×2 (04:49→08:05)
--- NOTE | 2018-12-09 07:19 | PN_ITS ---
Subjective: The patient was seen and examined at the bedside this morning. Events from the last 24 hours have been reviewed. The patient is currently afebrile, hemodynamically stable and maintaining appropriate oxygen saturations on her baseline supplemental oxygen requirement. The patient did tolerate BiPAP overnight. She denies the presence of a cough. Objective: The patient's most recent lab work, culture data and imaging studies have all been personally reviewed. Surface echocardiogram from October 2016 revealed normal LV size and function with an ejection fraction of 55%. Polysomnogram completed in 2015 revealed the need for nocturnal CPAP therapy with a pressure support of 10 cm of water. Strep and urine Legionella antigens were negative. Blood cultures are pending. CTA chest completed on December 08 revealed evidence of emphysematous changes, upper lobe bronchiectasis and reticular nodular changes, most pronounced in the bases bilaterally. General: Alert, Cooperative, No apparent distress HEENT: Atraumatic, PERRLA, Normocephalic Oral: No Gingival or Mucosal Lesions/ Ulcerations Neck: Supple, No Nodes, Trachea Midline Lungs: No wheeze, Diminished, Rales Cardiovascular: Regular rate, Regular Rhythm, Normal S1, Normal S2, No murmurs Abdomen: Bowel Sounds Present, Soft, Non Tender Extremities: No cyanosis, No edema, Clubbing Skin: - - No significant change from previous Musculoskeletal: No Tenderness to Palpation of Joints or Extremities Lymphatic: No Cervical, Supraclavicular, or Inguinal Adenopathy Neurological: Neuro grossly intact Psych/Mental Status: Anxious Vital Signs Temp Pulse Resp BP Pulse Ox 98.7 F 91 24 H 150/61 H 100 12/09/18 06:00 12/09/18 06:38 12/09/18 06:38 12/09/18 06:00 12/09/18 06:38 Oxygen Flow Rate (L/min) 3 Oxygen Delivery Method Nasal Cannula Weight: 137 lb 2.04 oz Body Mass Index (BMI) 20.0 Finger Stick Blood Glucose 113 Intake and Output for Last 24 Hours 12/07/18 12/08/18 12/09/18 23:59 23:59 23:59 Intake Total 1209.6 / 1209.6 100 / 100 Output Total 700 / 700 300 / 300 Balance 509.6 / 509.6 -200 / -200 Labs (Last 48 Hours) 06/21/19 06/21/19 06/21/19 10:10 10:10 10:10 WBC 28.4 H RBC 3.72 L Hgb 11.6 L Hct 34.6 L MCV 93.0 MCH 31.2 MCHC 33.5 RDW 15.0 H RDW Differential 51.1 H Plt Count 260 MPV 8.7 Immature Gran % (Auto) 1.300 H Neut % (Auto) 89.3 H Lymph % (Auto) 5.4 L Stephen[place] % (Auto) 3.7 Eos % (Auto) 0.2 Baso % (Auto) 0.1 Absolute Neuts (auto) 25.4 H Absolute Lymphs (auto) 1.54 Total Counted Not Reportable Differential Comment COMMENT PT 23.0 H INR 2.0 APTT 60.9 H Specimen Type Sample Site pH Bicarbonate Actual POC Total CO2 Base Excess O2 Saturation ABG pCO2 ABG pO2 Ronak Test O2 Delivery Device Liter Flow Blood Gas Notified Whom Blood Gas Notified Time Sodium 140 Potassium 3.6 Chloride 106 Carbon Dioxide 24.0 Anion Gap 10 BUN 36 H Creatinine 0.87 Estim Creat Clear Calc 59.95 Est GFR (MDRD) Af Amer 83 Est GFR (MDRD) Non-Af 69 BUN/Creatinine Ratio 41.2 H Glucose 95 Lactic Acid Calcium 8.9 Magnesium Total Bilirubin 0.60 Direct Bilirubin 0.21 AST 10 L ALT 9 L Alkaline Phosphatase 220 H Troponin I < 0.015 B-Natriuretic Peptide Total Protein 7.4 Albumin 2.2 L Globulin 5.2 H Lipase 51 L TSH Free T4 Urine Color Urine Clarity Urine pH Ur Specific [place] Urine Protein Urine Glucose (UA) Urine Ketones Urine Occult Blood Urine Nitrite Urine Bilirubin Urine Urobilinogen Ur Leukocyte Esterase Urine RBC Urine WBC Ur Squamous Epith Cells Urine Bacteria Urine Mucus MRSA (PCR) 12/08/18 12/08/18 12/08/18 10:10 10:10 10:18 WBC RBC Hgb Hct MCV MCH MCHC RDW RDW Differential Plt Count MPV Immature Gran % (Auto) Neut % (Auto) Lymph % (Auto) Stephen[place] % (Auto) Eos % (Auto) Baso % (Auto) Absolute Neuts (auto) Absolute Lymphs (auto) Total Counted Differential Comment PT INR APTT Specimen Type ART Sample Site R Radial pH 7.35 Bicarbonate Actual 22.4 POC Total CO2 24 Base Excess -3 L O2 Saturation 94 L ABG pCO2 40.8 ABG pO2 73 L Ronak Test POS O2 Delivery Device Nasal Can Liter Flow 3.0 Blood Gas Notified Whom ED Blood Gas Notified Time 1017 Sodium Potassium Chloride Carbon Dioxide Anion Gap BUN Creatinine Estim Creat Clear Calc Est GFR (MDRD) Af Amer Est GFR (MDRD) Non-Af BUN/Creatinine Ratio Glucose Lactic Acid 1.0 Calcium Magnesium Total Bilirubin Direct Bilirubin AST ALT Alkaline Phosphatase Troponin I B-Natriuretic Peptide 211.9 H Total Protein Albumin Globulin Lipase TSH Free T4 Urine Color Urine Clarity Urine pH Ur Specific [place] Urine Protein Urine Glucose (UA) Urine Ketones Urine Occult Blood Urine Nitrite Urine Bilirubin Urine Urobilinogen Ur Leukocyte Esterase Urine RBC Urine WBC Ur Squamous Epith Cells Urine Bacteria Urine Mucus MRSA (PCR) 12/08/18 12/08/18 12/09/18 11:20 17:18 03:55 WBC RBC Hgb Hct MCV MCH MCHC RDW RDW Differential Plt Count MPV Immature Gran % (Auto) Neut % (Auto) Lymph % (Auto) [place] % (Auto) Eos % (Auto) Baso % (Auto) Absolute Neuts (auto) Absolute Lymphs (auto) Total Counted Differential Comment PT INR APTT Specimen Type Sample Site pH Bicarbonate Actual POC Total CO2 Base Excess O2 Saturation ABG pCO2 ABG pO2 [place]ak Test O2 Delivery Device Liter Flow Blood Gas Notified Whom Blood Gas Notified Time Sodium 139 Potassium 4.1 Chloride 109 H Carbon Dioxide 23.0 Anion Gap 7 BUN 26 H Creatinine 0.69 Estim Creat Clear Calc 52.15 Est GFR (MDRD) Af Amer 109 Est GFR (MDRD) Non-Af 90 BUN/Creatinine Ratio 37.7 H Glucose 101 Lactic Acid Calcium 8.2 L Magnesium 2.5 Total Bilirubin Direct Bilirubin AST ALT Alkaline Phosphatase Troponin I B-Natriuretic Peptide Total Protein Albumin Globulin Lipase TSH 0.04 L Free T4 1.23 Urine Color Yellow Urine Clarity Clear Urine pH 6.0 Ur Specific [place] 1.015 Urine Protein 100 H Urine Glucose (UA) Normal Urine Ketones 5 H Urine Occult Blood 25 H Urine Nitrite Negative Urine Bilirubin Negative Urine Urobilinogen 1 H Ur Leukocyte Esterase 25 H Urine RBC 0-5 SEEN Urine WBC 0-5 SEEN Ur Squamous Epith Cells 0-5 SEEN Urine Bacteria 1+ Urine Mucus 0 SEEN MRSA (PCR) Negative 12/09/18 03:55 WBC 12.2 H RBC 3.19 L Hgb 9.8 L Hct 30.2 L MCV 94.7 MCH 30.7 MCHC 32.5 RDW 15.0 H RDW Differential 51.7 H Plt Count 180 MPV 8.8 Immature Gran % (Auto) 0.400 Neut % (Auto) 93.8 H Lymph % (Auto) 2.6 L [place] % (Auto) 3.0 Eos % (Auto) 0.0 Baso % (Auto) 0.2 Absolute Neuts (auto) 11.4 H Absolute Lymphs (auto) 0.32 L Total Counted Not Reportable Differential Comment PT INR APTT Specimen Type Sample Site pH Bicarbonate Actual POC Total CO2 Base Excess O2 Saturation ABG pCO2 ABG pO2 [place] Test O2 Delivery Device Liter Flow Blood Gas Notified Whom Blood Gas Notified Time Sodium Potassium Chloride Carbon Dioxide Anion Gap BUN Creatinine Estim Creat Clear Calc Est GFR (MDRD) Af Amer Est GFR (MDRD) Non-Af BUN/Creatinine Ratio Glucose Lactic Acid Calcium Magnesium Total Bilirubin Direct Bilirubin AST ALT Alkaline Phosphatase Troponin I B-Natriuretic Peptide Total Protein Albumin Globulin Lipase TSH Free T4 Urine Color Urine Clarity Urine pH Ur Specific [place] Urine Protein Urine Glucose (UA) Urine Ketones Urine Occult Blood Urine Nitrite Urine Bilirubin Urine Urobilinogen Ur Leukocyte Esterase Urine RBC Urine WBC Ur Squamous Epith Cells Urine Bacteria Urine Mucus MRSA (PCR) Microbiology 12/08/18 11:20 Urine Catheter - Catheter Streptococcus pneumoniae Antigen (M - Final 12/08/18 11:20 Urine Catheter - Catheter Legionella Antigen - Final Clinical Impression(s) from Imaging Studies Chest X-Ray 12/08/18 09:45 IMPRESSION: 1. Shallow inspiratory effort limiting evaluation of the lung bases. Bibasilar consolidation/small effusions cannot be entirely excluded. 2. Chronic interstitial changes plus or minus superimposed foci of pneumonitis. at 1232 Reported and signed by: Josh Serrato MD Electronically Signed: Josh Serrato MD at 12:31 EDT Tel , Service support , Chest CTA 12/08/18 15:18 IMPRESSION: 1. No acute pulmonary embolus. 2. Moderately advanced pulmonary emphysema and interval worsening of chronic interstitial lung disease. 3. Scattered patchy alveolar densities within the periphery of bilateral lower lobes and lingula suspicious for pneumonitis. 4. Mild bilateral hilar lymphadenopathy with interval worsening, these are likely reactive in nature. A few scattered borderline enlarged mediastinal lymph nodes. Individualized dose optimization techniques were used for this CT. at 1701 Reported and signed by: Josh Serrato MD Electronically Signed: Josh Serrato MD at 17:00 EDT Tel , Service support , Medical Necessity - Tobacco Use Smoking Status: Current every day smoker Tobacco Use: Cigarettes Assessment/Plan All Active Problems (Last Reviewed 07/14/18 @ 10:23 by Sander Means MD) COPD exacerbation (Acute) Sepsis (Acute) Pneumonia (Acute) Encephalopathy acute (Acute) Leukocytosis (Acute) Acute delirium (Resolved) Adrenal insufficiency (Resolved) Breakthrough seizure (Resolved) Gram-negative pneumonia (Resolved) Hypotension (Resolved) MRSA pneumonia (Resolved) Respiratory failure with hypercapnia (Resolved) Septic shock (Resolved) Tobacco user (Resolved) RECOMMENDATIONS: 1. Continue antibiotics, steroids and bronchodilators. 2. Continue BiPAP therapy and wean as tolerated. 3. The patient needs to be scheduled in the pulmonary medicine clinic within 2 weeks of her discharge. She has been lost to follow-up since March 2018. 4. Smoking cessation is advisable. IMPRESSIONS: 1. Acute on chronic hypoxemic respiratory failure While the patient has been placed on empiric antibiotics over concerns for pneumonia, I am more concerned that the findings noted on chest x-ray could represent progressive interstitial lung disease. In addition, the patient's complaints of shortness of breath are likely the consequence of the fact that she is not utilizing her maintenance inhalers as she is supposed to in her home environment. She has known severe COPD and does continue to smoke cigarettes. CTA chest did not demonstrate evidence for PE. However, there was evidence of emphysematous changes, upper lobe bronchiectasis and reticular nodular changes most pronounced in the periphery of the bases bilaterally. The patient appears to be responding to the use of BiPAP, bronchodilators and steroids. She will be continued on antibiotics as well. She has been weaned from continuous BiPAP as of this morning and appears to be maintaining saturations on her baseline supplemental oxygen requirement. 2. Severe obstructive lung disease/interstitial lung disease/continued tobacco dependency As noted above, the patient is currently prescribed Symbicort 2 puffs twice daily but states that she is only been utilizing it one time per day. The patient appears somewhat confused as to what her outpatient inhaler regimen should entail. In addition, her reliance on her rescue inhaler is quite frequent. She would likely best be served by being placed on a triple therapy inhaler regimen. In addition, smoking cessation is imperative. This was discussed with the patient. She will require close interval follow-up in the pulmonary medicine clinic with Dr. Diallo after discharge. 3. Obstructive sleep apnea Continue nocturnal Pap therapy. 4. Hypertension/unspecified seizure disorder/hypothyroidism/anxiety/depression Complicates care, management, recovery and prognosis. Continue home medications as indicated. The patient will require physical therapy evaluation once she has been weaned from continuous BiPAP therapy. This note was generated with [employer] ? dictation software. It may contain incorrect words, spelling, and punctuation that were not noted in checking the note before signing. Code Visit Inpatient E&M: 37042 Subs Hosp L3
--- NOTE | 2018-12-09 07:47 | PCM.PN.HOSP ---
Patient Problems: Active and Suspected Problems (Last Reviewed 07/14/18 @ 10:23 by Sander Means MD) COPD exacerbation (Acute) Subjective: The patient was on BiPAP for leg and breathing status is better as that of ER. Patient is still has persistent cough. Feels chest congestion and mucus stuck in the chest and throat. Cough medication and Mucinex. Currently on 1-2 L of oxygen through nasal cannula. Vitals/I&O's: Vital Signs Temp Pulse Resp BP Pulse Ox 98.7 F 94 21 H 122/57 H 94 12/09/18 06:00 12/09/18 07:00 12/09/18 07:00 12/09/18 07:00 12/09/18 07:00 Oxygen Flow Rate (L/min) 1 Oxygen Delivery Method Nasal Cannula Weight: 137 lb 2.04 oz Body Mass Index (BMI) 20.0 Finger Stick Blood Glucose 113 Intake and Output for Last 24 Hours 12/07/18 12/08/18 12/09/18 23:59 23:59 23:59 Intake Total 1209.6 / 1209.6 100 / 100 Output Total 700 / 700 300 / 300 Balance 509.6 / 509.6 -200 / -200 General: Alert, Oriented x3, Cooperative HEENT: Atraumatic, PERRLA, EOMI, Normocephalic Oral: Dry Mucosa Neck: Supple, No JVD, Negative Carotid Bruits, Negative Hepatojugular Reflux Lungs: Rhonchi, Short of Breath, Wheezes, - Cardiovascular: Regular rate, Regular Rhythm, Normal S1, Normal S2, No murmurs Abdomen: Bowel Sounds Present, Soft, Non Tender, Non-Distended Extremities: No edema, Capillary Refill Less than 3 Seconds Skin: No rashes, No breakdown Musculoskeletal: No Tenderness to Palpation of Joints or Extremities, Arthritic Changes, Muscle Wasting Neurological: Cranial nerves II-XII grossly intact, Deep Tendon Reflexes 2+/4 and Symmetrical, Neuro grossly intact Psych/Mental Status: Normal Affect, Appropriate Microbiology Past 72 Hours 12/08/18 11:20 Urine Catheter - Catheter Streptococcus pneumoniae Antigen (M - Final 12/08/18 11:20 Urine Catheter - Catheter Legionella Antigen - Final Laboratory Results 12/08/18 10:10: WBC 28.4 H, RBC 3.72 L, Hgb 11.6 L, Hct 34.6 L, MCV 93.0, MCH 31.2, MCHC 33.5, RDW 15.0 H, RDW Differential 51.1 H, Plt Count 260, MPV 8.7, Immature Gran % (Auto) 1.300 H, Neut % (Auto) 89.3 H, Lymph % (Auto) 5.4 L, [place] % (Auto) 3.7, Eos % (Auto) 0.2, Baso % (Auto) 0.1, Absolute Neuts (auto) 25.4 H, Absolute Lymphs (auto) 1.54, Total Counted Not Reportable, Differential Comment COMMENT 12/08/18 10:10: PT 23.0 H, INR 2.0, APTT 60.9 H 12/08/18 10:10: Sodium 140, Potassium 3.6, Chloride 106, Carbon Dioxide 24.0, Anion Gap 10, BUN 36 H, Creatinine 0.87, Estim Creat Clear Calc 59.95, Est GFR (MDRD) Af Amer 83, Est GFR (MDRD) Non-Af 69, BUN/Creatinine Ratio 41.2 H, Glucose 95, Calcium 8.9, Total Bilirubin 0.60, Direct Bilirubin 0.21, AST 10 L, ALT 9 L, Alkaline Phosphatase 220 H, Troponin I < 0.015, Total Protein 7.4, Albumin 2.2 L, Globulin 5.2 H, Lipase 51 L 12/08/18 10:10: Lactic Acid 1.0 12/08/18 10:10: B-Natriuretic Peptide 211.9 H 12/08/18 10:18: Specimen Type ART, Sample Site R Radial, pH 7.35, Bicarbonate Actual 22.4, POC Total CO2 24, Base Excess -3 L, O2 Saturation 94 L, ABG pCO2 40.8, ABG pO2 73 L, Ronak Test POS, O2 Delivery Device Nasal Can, Liter Flow 3.0, Blood Gas Notified Whom ED , Blood Gas Notified Time 1017 12/08/18 11:20: Urine Color Yellow, Urine Clarity Clear, Urine pH 6.0, Ur Specific [place] 1.015, Urine Protein 100 H, Urine Glucose (UA) Normal, Urine Ketones 5 H, Urine Occult Blood 25 H, Urine Nitrite Negative, Urine Bilirubin Negative, Urine Urobilinogen 1 H, Ur Leukocyte Esterase 25 H, Urine RBC 0-5 SEEN, Urine WBC 0-5 SEEN, Ur Squamous Epith Cells 0-5 SEEN, Urine Bacteria 1+, Urine Mucus 0 SEEN 12/08/18 17:18: MRSA (PCR) Negative 12/09/18 03:55: Sodium 139, Potassium 4.1, Chloride 109 H, Carbon Dioxide 23.0, Anion Gap 7, BUN 26 H, Creatinine 0.69, Estim Creat Clear Calc 52.15, Est GFR (MDRD) Af Amer 109, Est GFR (MDRD) Non-Af 90, BUN/Creatinine Ratio 37.7 H, Glucose 101, Calcium 8.2 L, Magnesium 2.5, TSH 0.04 L, Free T4 1.23 12/09/18 03:55: WBC 12.2 H, RBC 3.19 L, Hgb 9.8 L, Hct 30.2 L, MCV 94.7, MCH 30.7, MCHC 32.5, RDW 15.0 H, RDW Differential 51.7 H, Plt Count 180, MPV 8.8, Immature Gran % (Auto) 0.400, Neut % (Auto) 93.8 H, Lymph % (Auto) 2.6 L, [place] % (Auto) 3.0, Eos % (Auto) 0.0, Baso % (Auto) 0.2, Absolute Neuts (auto) 11.4 H, Absolute Lymphs (auto) 0.32 L, Total Counted Not Reportable Current Medications Acetaminophen (Tylenol) 650 mg PO Q6H PRN PRN PRN Reason: Mild Pain (1-3)/Temp > 100.7 F Last Admin: 12/08/18 18:46 Dose: 650 mg Documented by: Albuterol Sulfate (Ventolin Aerosols) 2.5 mg INHALATION Q2H PRN PRN PRN Reason: SOB/Wheezing Albuterol/Ipratropium (Duoneb) 3 ml INHALATION Q4H.RT [facility] Last Admin: 12/09/18 06:38 Dose: 3 ml Documented by: Benzonatate (Tessalon Perle) 200 mg PO TID [facility] Enoxaparin Sodium (Lovenox) 40 mg SC DAILY [facility] [place] Famotidine (Pepcid) 20 mg PO BID [facility] [place] Last Admin: 12/08/18 20:56 Dose: 20 mg Documented by: Guaifenesin (Mucinex) 1,200 mg PO BID [facility] [place] Last Admin: 12/08/18 20:56 Dose: 1,200 mg Documented by: Heparin Sodium (Beef Lung) () 50 units IV UD PRN PRN Reason: HEPARIN FLUSH Ceftriaxone Sodium (Rocephin) 1 gm in 50 mls @ 100 mls/hr IV Q12H [facility] [place] Last Admin: 12/08/18 20:56 Dose: 100 mls/hr Documented by: Azithromycin 500 mg/ Dextrose 255 mls @ 250 mls/hr IV Q24 [facility] Stop: 12/11/18 11:02 Sodium Chloride () 250 mls @ 15 mls/hr IV .[id number] PRN PRN Reason: SALINE FLUSH Methylprednisolone (Solu-Medrol) 40 mg IV Q8 [facility] Stop: 12/10/18 22:01 Last Admin: 12/09/18 04:49 Dose: 40 mg Documented by: Ondansetron HCl (Zofran) 4 mg IV Q8H PRN PRN PRN Reason: NAUSEA/VOMITING Oxycodone HCl (Oxyir) 5 mg PO Q4H PRN PRN PRN Reason: Moderate pain (4-6/10) Promethazine HCl (Phenergan) 12.5 mg IV Q6H PRN PRN PRN Reason: Breakthrough Nausea/Vomiting Senna/Docusate Sodium (Senokot-S, Rhea-Colace) 2 tablet PO BID PRN PRN Reason: Constipation Sodium Chloride () 10 ml IV UD PRN PRN Reason: VAD FLUSH Throat Lozenges (Cepacol Sore Throat Lozenge) 1 lozenge MUCOUS MEM Q2H PRN PRN PRN Reason: Sore Throat/Cough Last Admin: 12/09/18 04:49 Dose: 1 lozenge Documented by: Medical Necessity - Tobacco Use Smoking Status: Current every day smoker Tobacco Use: Cigarettes Assessment/Plan All Active Problems (Last Reviewed 07/14/18 @ 10:23 by Sander Means MD) COPD exacerbation (Acute) Sepsis (Acute) Pneumonia (Acute) Encephalopathy acute (Acute) Leukocytosis (Acute) Acute delirium (Resolved) Adrenal insufficiency (Resolved) Breakthrough seizure (Resolved) Gram-negative pneumonia (Resolved) Hypotension (Resolved) MRSA pneumonia (Resolved) Respiratory failure with hypercapnia (Resolved) Septic shock (Resolved) Tobacco user (Resolved) The patient is a 68 year old F with multiple comorbidities as listed above including severe COPD, lung fibrosis and recurrent admission for respiratory failure came to ER with progressive worsening of shortness of breath for 3 days along with dry cough, poor oral intake, labored breathing consistent with respiratory failure. Patient had chills but denies any fever. Blood pressure was low 97/72, improved with IV fluid normal saline bolus 2 L. ABG 7.3 5/40/73 on 3 L of oxygen through nasal cannula. Patient has significant leukocytosis 28,000 with left shift. BUN 36, creatinine 0.87, BNP 211. UA shows proteinuria, LE 25 otherwise unremarkable The patient was not put on BiPAP. Chest x-ray shows poor ventilation with shallow inspiratory effort. Bibasilar consolidation/small effusion with chronic interstitial changes. 1. Acute on chronic hypoxic respiratory failure, most probably from pneumonia/COPD exacerbation/chronic interstitial lung disease/pulmonary fibrosis: Patient is being admitted in ICU. On BiPAP with close monitoring of respiratory status. Elevator Mechanic consult reviewed and appreciated. BNP 211, not very high suggestive of heart failure but may be from pulmonary cause. INR 2.0, PTT 60.9. Albumin 2.2, globulin 5.2, probably coagulopathy from chronic liver disease with synthetic dysfunction. Repeat PT/PTT 2. COPD exacerbation with sepsis probably from pneumonia: The patient has a leukocytosis, lactic acid normal. Urinary antigens are negative. Blood cultures x2 are pending. Empirically started on IV ceftriaxone and Zithromax. MRSA nasal screen negative. On bronchodilator, IV Solu-Medrol, incentive spirometry and chest physiotherapy. 3. Chronic pulmonary fibrosis/interstitial lung disease: May need to repeat echo if respiratory condition does not improve, to evaluate right side of heart. Patient last echo in October 2016 reported as normal LV size with function, EF 55%. Normal RV size and systolic function. Valvular anatomy and function normal. CT chest was done and shows no active PE but moderately active emphysema and worsening of chronic interstitial lung disease. While bilateral hilar adenopathy, probably reactive in nature. 4. Hypertension-hypotension in ER resolved with IV fluid boluses. Monitor. Hold antihypertensive medication. 5. Tobacco dependence/cigarette smoking-encouraged smoking cessation. 6. Seizure disorder-continue home Keppra, divalproex regimen. 7. Hypothyroidism-continue home Synthroid regimen. TSH and free T4 0.04 and free T4 1.23. Decrease Synthroid dose to 100 mcg daily. 8. Anxiety/depression with anemia of chronic disease-during previous admission in September 2018, H&H was 8.8/28 but currently 11.6/34.6. Continue home Zoloft and Risperdal regimen. 9. RENNY-continue CPAP regimen. 10. RLS-continue Requip regimen. 11. GERD-continue PPI. DVT prophylaxis: Lovenox 40 subcu from tomorrow a.m. Advanced directive/care of life call: Advanced directive discussed with the patient's as the patient was mildly lethargic and on BiPAP. Out of all options given full code, DNR CC arrest and DNR CC, he wanted full code. Patient for a full resuscitation including intubation, vent management tube feeding and vasopressor support. Patient has MediPort in the chest. Microbiology Past 72 Hours 12/08/18 11:20 Urine Catheter - Catheter Streptococcus pneumoniae Antigen (M - Final 12/08/18 11:20 Urine Catheter - Catheter Legionella Antigen - Final Laboratory Results 12/08/18 10:10: WBC 28.4 H, RBC 3.72 L, Hgb 11.6 L, Hct 34.6 L, MCV 93.0, MCH 31.2, MCHC 33.5, RDW 15.0 H, RDW Differential 51.1 H, Plt Count 260, MPV 8.7, Immature Gran % (Auto) 1.300 H, Neut % (Auto) 89.3 H, Lymph % (Auto) 5.4 L, [place] % (Auto) 3.7, Eos % (Auto) 0.2, Baso % (Auto) 0.1, Absolute Neuts (auto) 25.4 H, Absolute Lymphs (auto) 1.54, Total Counted Not Reportable, Differential Comment COMMENT 12/08/18 10:10: PT 23.0 H, INR 2.0, APTT 60.9 H 12/08/18 10:10: Sodium 140, Potassium 3.6, Chloride 106, Carbon Dioxide 24.0, Anion Gap 10, BUN 36 H, Creatinine 0.87, Estim Creat Clear Calc 59.95, Est GFR (MDRD) Af Amer 83, Est GFR (MDRD) Non-Af 69, BUN/Creatinine Ratio 41.2 H, Glucose 95, Calcium 8.9, Total Bilirubin 0.60, Direct Bilirubin 0.21, AST 10 L, ALT 9 L, Alkaline Phosphatase 220 H, Troponin I < 0.015, Total Protein 7.4, Albumin 2.2 L, Globulin 5.2 H, Lipase 51 L 12/08/18 10:10: Lactic Acid 1.0 12/08/18 10:10: B-Natriuretic Peptide 211.9 H 12/08/18 10:18: Specimen Type ART, Sample Site R Radial, pH 7.35, Bicarbonate Actual 22.4, POC Total CO2 24, Base Excess -3 L, O2 Saturation 94 L, ABG pCO2 40.8, ABG pO2 73 L, Ronak Test POS, O2 Delivery Device Nasal Can, Liter Flow 3.0, Blood Gas Notified Whom ED MD, Blood Gas Notified Time 1017 12/08/18 11:20: Urine Color Yellow, Urine Clarity Clear, Urine pH 6.0, Ur Specific [place] 1.015, Urine Protein 100 H, Urine Glucose (UA) Normal, Urine Ketones 5 H, Urine Occult Blood 25 H, Urine Nitrite Negative, Urine Bilirubin Negative, Urine Urobilinogen 1 H, Ur Leukocyte Esterase 25 H, Urine RBC 0-5 SEEN, Urine WBC 0-5 SEEN, Ur Squamous Epith Cells 0-5 SEEN, Urine Bacteria 1+, Urine Mucus 0 SEEN 12/08/18 17:18: MRSA (PCR) Negative 12/09/18 03:55: Sodium 139, Potassium 4.1, Chloride 109 H, Carbon Dioxide 23.0, Anion Gap 7, BUN 26 H, Creatinine 0.69, Estim Creat Clear Calc 52.15, Est GFR (MDRD) Af Amer 109, Est GFR (MDRD) Non-Af 90, BUN/Creatinine Ratio 37.7 H, Glucose 101, Calcium 8.2 L, Magnesium 2.5, TSH 0.04 L, Free T4 1.23 12/09/18 03:55: WBC 12.2 H, RBC 3.19 L, Hgb 9.8 L, Hct 30.2 L, MCV 94.7, MCH 30.7, MCHC 32.5, RDW 15.0 H, RDW Differential 51.7 H, Plt Count 180, MPV 8.8, Immature Gran % (Auto) 0.400, Neut % (Auto) 93.8 H, Lymph % (Auto) 2.6 L, [place] % (Auto) 3.0, Eos % (Auto) 0.0, Baso % (Auto) 0.2, Absolute Neuts (auto) 11.4 H, Absolute Lymphs (auto) 0.32 L, Total Counted Not Reportable Active Medications Acetaminophen (Tylenol) 650 mg PO Q6H PRN PRN PRN Reason: Mild Pain (1-3)/Temp > 100.7 F Last Admin: 12/08/18 18:46 Dose: 650 mg Documented by: Albuterol Sulfate (Ventolin Aerosols) 2.5 mg INHALATION Q2H PRN PRN PRN Reason: SOB/Wheezing Albuterol/Ipratropium (Duoneb) 3 ml INHALATION Q4H.RT [facility] Last Admin: 12/09/18 06:38 Dose: 3 ml Documented by: Benzonatate (Tessalon Perle) 200 mg PO TID [facility] Enoxaparin Sodium (Lovenox) 40 mg SC DAILY [facility] Famotidine (Pepcid) 20 mg PO BID [facility] [place] Last Admin: 12/08/18 20:56 Dose: 20 mg Documented by: Guaifenesin (Mucinex) 1,200 mg PO BID [facility] Last Admin: 12/08/18 20:56 Dose: 1,200 mg Documented by: Heparin Sodium (Beef Lung) () 50 units IV UD PRN PRN Reason: HEPARIN FLUSH Ceftriaxone Sodium (Rocephin) 1 gm in 50 mls @ 100 mls/hr IV Q12H [facility] [place] Last Admin: 12/08/18 20:56 Dose: 100 mls/hr Documented by: Azithromycin 500 mg/ Dextrose 255 mls @ 250 mls/hr IV Q24 [facility] Stop: 12/11/18 11:02 Sodium Chloride () 250 mls @ 15 mls/hr IV .[id number] PRN PRN Reason: SALINE FLUSH Methylprednisolone (Solu-Medrol) 40 mg IV Q8 [facility] Stop: 12/10/18 22:01 Last Admin: 12/09/18 04:49 Dose: 40 mg Documented by: Ondansetron HCl (Zofran) 4 mg IV Q8H PRN PRN PRN Reason: NAUSEA/VOMITING Oxycodone HCl (Oxyir) 5 mg PO Q4H PRN PRN PRN Reason: Moderate pain (4-6/10) Promethazine HCl (Phenergan) 12.5 mg IV Q6H PRN PRN PRN Reason: Breakthrough Nausea/Vomiting Senna/Docusate Sodium (Senokot-S, Rhea-Colace) 2 tablet PO BID PRN PRN Reason: Constipation Sodium Chloride () 10 ml IV UD PRN PRN Reason: VAD FLUSH Throat Lozenges (Cepacol Sore Throat Lozenge) 1 lozenge MUCOUS MEM Q2H PRN PRN PRN Reason: Sore Throat/Cough Last Admin: 12/09/18 04:49 Dose: 1 lozenge Documented by: Clinical Impression(s) from Imaging Studies Chest X-Ray 12/08/18 09:45 IMPRESSION: 1. Shallow inspiratory effort limiting evaluation of the lung bases. Bibasilar consolidation/small effusions cannot be entirely excluded. 2. Chronic interstitial changes plus or minus superimposed foci of pneumonitis. Chest CTA 12/08/18 15:18 IMPRESSION: 1. No acute pulmonary embolus. 2. Moderately advanced pulmonary emphysema and interval worsening of chronic interstitial lung disease. 3. Scattered patchy alveolar densities within the periphery of bilateral lower lobes and lingula suspicious for pneumonitis. 4. Mild bilateral hilar lymphadenopathy with interval worsening, these are likely reactive in nature. A few scattered borderline enlarged mediastinal lymph nodes. Individualized dose optimization techniques were used for this CT. Code Visit Inpatient E&M: [id number] [facility] Hosp L3
[2018-12-09] MEDS: Acetaminophen 325 MG Tablet 650 MG PO (08:05)
[2018-12-09] MEDS: 0.9% NaCl VAD Flush 10 ML IV ×3 (09:09→22:01)
[2018-12-09] MEDS: Ceftriaxone 1 GM/50 ML BAG IV ×2 (09:10→22:01)
[2018-12-09] MEDS: levETIRAcetam 500 MG Tablet PO ×2 (09:10→22:01)
[2018-12-09] MEDS: Pantoprazole Sodium 40 MG Tablet PO (09:11)
[2018-12-09] MEDS: guaiFENesin 1,200 MG Tablet 1200 MG PO ×2 (09:11→22:01)
[2018-12-09] MEDS: Famotidine 20 MG Tablet PO ×2 (09:11→22:00)
[2018-12-09] MEDS: Levothyroxine 100 MCG Tablet PO (09:11)
[2018-12-09] MEDS: Sertraline 50 MG Tablet PO (09:11)
[2018-12-09] MEDS: Enoxaparin 40 MG/0.4 ML Syringe SC (09:12)
[2018-12-09 09:27] LABS: International Normalized Ratio 1.6; Partial Thromboplast Time 37.5 Seconds (24.1-36.2); Prothrombin Time (Protime)PT. 18.9 SECONDS (11.7-14.9)
[2018-12-09] MEDS: Benzonatate 100 MG Capsule 200 MG PO ×2 (12:34→22:00)
[2018-12-09] MEDS: Divalproex (ER) 250 MG Tablet PO (12:34)
--- NOTE | 2018-12-09 12:54 | CASEMGMT ---
VERO BOJORQUEZ assessment: Face to Face with patient for initial transition planning/care coordination assessment. RN CM introduced self and role at [facility], pt voices understanding and consents to assessment at this time. Pt is lying in bed in no distress at this time. Pt is A/Ox4 at this time and able to answer questions appropriately but does fall asleep easily. is at bedside during assessment and assists with answering questions. Care providers, pharmacy, and demographics verified at this time. PCP: [facility] Specialists: greer Traylor; lawanda Diallo; wood Quintanilla Preferred Pharmacy: [facility] Insurance: MCR A/B, [employer] Prescription Benefit: Silver[employer] Living Will/HPOA: states that pt has LW/HPOA but that they would like to re-do/update it while they are here and he states preferably on tuesday. SW aware. LNOK: Evgeny Cartwright, Living Arrangements: Pt lives with on main level of ranch with 2 steps into home and he states that he just lifts pt upstairs into home. Transportation: drives pt and states no transportation concerns at this time. DME/HHC: Pt has the following DME: rollator, raised toilet seat, gait belt, adjustable bed, shower chair, grab bars, lift chair, cpap, and home oxygen 2liter bleed into cpap thru [employer]. Per , pt is current with [facility] for RN, PT/OT and resumption order is placed at this time. Pt has been to [place] and [facility] in the past. states that pt has already hit her 100 MCR days and had only been out of [place] for 42 days when she came back in here, so he states the plan is to take her home. states that pt's neuro problems are more significant than the respiratory at this time. He states that pt has been diagnosed with secondary parkinsons and he assists her with all ADL's. Pt is retired. Pt still smokes about a pack per day but states she has been decreasing amount daily. Pt does not drink ETOH. Pt/ state no further questions/concerns/needs at this time. CM to follow for any further discharge planning/needs. Advised pt/ to ask for CM if any further questions/concerns/needs arise, voices understanding. Pt Goal: Home w/ HHC LUIZ Plan: Home w/ C LUIZ [place] RN CM
[2018-12-09] MEDS: NYSTATIN 500,000 UNIT/5 ML UDC 500000 UNIT PO ×3 (13:31→22:01)
[2018-12-09] MEDS: Carbidopa/Levodopa 25/100 Tablet PO (17:05)
[2018-12-09] MEDS: oxyCODONE 5 MG Tablet PO (17:11)
[2018-12-09] MEDS: Pramipexole Di-HCl 0.25 MG Tablet PO (22:01)
[2018-12-10] VITALS (19 sets, daily range): BP systolic 127–154; BP diastolic 58–75; PULSE 68–143; RESP 12–36; TEMP 36.6–36.9; O2SAT 95–100
[2018-12-10] MEDS: Ipratropium/Albuterol Sulfate 3 ML AMPUL.NEB INHALATION ×6 (02:24→22:50)
[2018-12-10] MEDS: 0.9% NaCl VAD Flush 10 ML IV ×2 (06:08→21:31)
[2018-12-10] MEDS: Benzonatate 100 MG Capsule 200 MG PO ×3 (06:08→21:31)
[2018-12-10] MEDS: Levothyroxine 100 MCG Tablet PO (06:08)
[2018-12-10] MEDS: Carbidopa/Levodopa 25/100 Tablet PO ×3 (06:08→15:25)
--- NOTE | 2018-12-10 07:10 | PCM.PN.PUL ---
Patient Problems: Active and Suspected Problems (Last Reviewed 07/14/18 @ 10:23 by Sander Means MD) COPD exacerbation (Acute) Subjective: The patient was seen and examined at the bedside this morning. Events from the last 24 hours have been reviewed. The patient is currently afebrile, hemodynamically stable and maintaining appropriate oxygen saturations on 1 L/min via nasal cannula. The patient has done well clinically following transfer out of the intensive care unit yesterday. She continues to have a cough, but reports no significant shortness of breath. Her home CPAP is currently at the bedside. When questioned, she did report that she utilized the machine overnight. Objective: The patient's most recent lab work, culture data and imaging studies have all been personally reviewed. Surface echocardiogram from October 2016 revealed normal LV size and function with an ejection fraction of 55%. Polysomnogram completed in 2015 revealed the need for nocturnal CPAP therapy with a pressure support of 10 cm of water. Strep and urine Legionella antigens were negative. Blood cultures are pending. CTA chest completed on December 08 revealed evidence of emphysematous changes, upper lobe bronchiectasis and reticular nodular changes, most pronounced in the bases bilaterally. - Physical Exam General: Alert, Cooperative, No apparent distress HEENT: Atraumatic, PERRLA, Normocephalic Oral: Moist Mucosa Neck: Supple, No Nodes, Trachea Midline Lungs: Diminished, Rales Cardiovascular: Regular rate, Regular Rhythm, Normal S1, Normal S2, No murmurs Abdomen: Bowel Sounds Present, Soft, Non Tender, Non-Distended Extremities: No cyanosis, No edema, Clubbing Skin: - - No significant change from previous Musculoskeletal: No Tenderness to Palpation of Joints or Extremities Lymphatic: No Cervical, Supraclavicular, or Inguinal Adenopathy Neurological: Cranial nerves II-XII grossly intact, Neuro grossly intact, - - Tremulous Psych/Mental Status: Flat Affect Vital Signs Temp Pulse Resp BP Pulse Ox 98.2 F 69 18 143/58 H 98 12/10/18 03:54 12/10/18 03:54 12/10/18 03:54 12/10/18 03:54 12/10/18 03:54 Oxygen Flow Rate (L/min) 1 Oxygen Delivery Method Nasal Cannula Weight: 135 lb 2.294 oz Body Mass Index (BMI) 20.0 Finger Stick Blood Glucose 113 Intake and Output for Last 24 Hours 12/08/18 12/09/18 12/10/18 23:59 23:59 23:59 Intake Total 1209.6 / 1209.6 1436.1 / 1436.1 240 / 240 Output Total 700 / 700 650 / 650 Balance 509.6 / 509.6 786.1 / 786.1 240 / 240 Microbiology Past 72 Hours 12/08/18 11:20 Streptococcus pneumoniae Antigen (M - Final Urine Catheter - Catheter 12/08/18 11:20 Legionella Antigen - Final Urine Catheter - Catheter Laboratory Tests Past 24 Hrs 12/09/18 09:00 PT 18.9 H INR 1.6 APTT 37.5 H Clinical Impression(s) from Imaging Studies Chest X-Ray 12/08/18 09:45 IMPRESSION: 1. Shallow inspiratory effort limiting evaluation of the lung bases. Bibasilar consolidation/small effusions cannot be entirely excluded. 2. Chronic interstitial changes plus or minus superimposed foci of pneumonitis. at 1232 Reported and signed by: Josh Serrato MD Electronically Signed: Josh Serrato MD at 12:31 EDT Tel , Service support , Chest CTA 12/08/18 15:18 IMPRESSION: 1. No acute pulmonary embolus. 2. Moderately advanced pulmonary emphysema and interval worsening of chronic interstitial lung disease. 3. Scattered patchy alveolar densities within the periphery of bilateral lower lobes and lingula suspicious for pneumonitis. 4. Mild bilateral hilar lymphadenopathy with interval worsening, these are likely reactive in nature. A few scattered borderline enlarged mediastinal lymph nodes. Individualized dose optimization techniques were used for this CT. at 1701 Reported and signed by: Josh Serrato MD Electronically Signed: Josh Serrato MD at 17:00 EDT Tel , Service support , Medical Necessity - Tobacco Use Smoking Status: Current every day smoker Tobacco Use: Cigarettes Assessment/Plan All Active Problems (Last Reviewed 07/14/18 @ 10:23 by Sander Means MD) COPD exacerbation (Acute) Sepsis (Acute) Pneumonia (Acute) Encephalopathy acute (Acute) Leukocytosis (Acute) Acute delirium (Resolved) Adrenal insufficiency (Resolved) Breakthrough seizure (Resolved) Gram-negative pneumonia (Resolved) Hypotension (Resolved) MRSA pneumonia (Resolved) Respiratory failure with hypercapnia (Resolved) Septic shock (Resolved) Tobacco user (Resolved) RECOMMENDATIONS: 1. Continue antibiotics, steroids and bronchodilators. Okay from my perspective to transition the patient from methylprednisone to prednisone 40 mg daily. 2. Continue PAP therapy with naps and nightly. 3. The patient needs to be scheduled in the pulmonary medicine clinic within 2 weeks of her discharge. She has been lost to follow-up since March 2018. 4. Smoking cessation is advisable. 5. Perform walking oximetry study prior to consideration for discharge from the hospital. IMPRESSIONS: 1. Acute on chronic hypoxemic respiratory failure While the patient has been placed on empiric antibiotics over concerns for pneumonia, I am more concerned that the findings noted on chest x-ray could represent progressive interstitial lung disease. In addition, the patient's complaints of shortness of breath are likely the consequence of the fact that she is not utilizing her maintenance inhalers as she is supposed to in her home environment. She has known severe COPD and does continue to smoke cigarettes. CTA chest did not demonstrate evidence for PE. However, there was evidence of emphysematous changes, upper lobe bronchiectasis and reticular nodular changes most pronounced in the periphery of the bases bilaterally. The patient appears to be responding to the use of BiPAP, bronchodilators and steroids. She will be continued on antibiotics as well. She has been weaned from continuous BiPAP, but I would recommend is continued use with naps and nightly. The patient will require close interval follow-up in the pulmonary medicine clinic. Her baseline inhaler regimen will likely need to be optimized. 2. Severe obstructive lung disease/interstitial lung disease/continued tobacco dependency As noted above, the patient is currently prescribed Symbicort 2 puffs twice daily but states that she is only been utilizing it one time per day. The patient appears somewhat confused as to what her outpatient inhaler regimen should entail. In addition, her reliance on her rescue inhaler is quite frequent. She would likely best be served by being placed on a triple therapy inhaler regimen. In addition, smoking cessation is imperative. This was discussed with the patient. She will require close interval follow-up in the pulmonary medicine clinic with Dr. Diallo after discharge. 3. Obstructive sleep apnea Continue nocturnal Pap therapy. 4. Hypertension/unspecified seizure disorder/hypothyroidism/anxiety/depression Complicates care, management, recovery and prognosis. Continue home medications as indicated. Physical therapy to work with the patient. This note was generated with [employer] dictation software. It may contain incorrect words, spelling, and punctuation that were not noted in checking the note before signing. Code Visit Inpatient E&M: 38727 Subs Hosp L2
--- NOTE | 2018-12-10 08:36 | PN_ITS ---
Patient Problems: Active and Suspected Problems (Last Reviewed 07/14/18 @ 10:23 by Sander Means MD) COPD exacerbation (Acute) Subjective: The patient is more lethargic and not responding to simple questions. At most, she answers yes or no. On BiPAP. Breathing status has gotten better and was transferred to PCU yesterday. No fever or chills. No tachycardia. Blood pressure is stable. On BiPAP Vitals/I&O's: Vital Signs Temp Pulse Resp BP Pulse Ox 98.2 F 72 20 H 143/58 H 95 12/10/18 03:54 12/10/18 07:00 12/10/18 06:44 12/10/18 03:54 12/10/18 06:44 Oxygen Flow Rate (L/min) 1 Oxygen Delivery Method Bi-pap Weight: 135 lb 2.294 oz Body Mass Index (BMI) 20.0 Finger Stick Blood Glucose 113 Intake and Output for Last 24 Hours 12/08/18 12/09/18 12/10/18 23:59 23:59 23:59 Intake Total 1209.6 / 1209.6 1436.1 / 1436.1 240 / 240 Output Total 700 / 700 650 / 650 Balance 509.6 / 509.6 786.1 / 786.1 240 / 240 General: Confused, Disoriented, Lethargic HEENT: Atraumatic, PERRLA, EOMI, Normocephalic Neck: Supple, No JVD, Negative Carotid Bruits Lungs: No wheeze, No rales, Diminished - Air entry is diminished., Rhonchi Cardiovascular: Regular rate, Regular Rhythm, Normal S1, Normal S2, No murmurs Abdomen: Bowel Sounds Present, Soft, Non Tender, Non-Distended Extremities: No edema, Capillary Refill Less than 3 Seconds Musculoskeletal: Arthritic Changes, Muscle Wasting Lymphatic: No Cervical, Supraclavicular, or Inguinal Adenopathy Neurological: Deep Tendon Reflexes 2+/4 and Symmetrical, - - Nonfocal exam, drowsy and lethargic. Does not respond to simple questions. Microbiology Past 72 Hours 12/08/18 10:10 Blood Culture (Wb) - Central Line Blood Culture - Preliminary No growth in 48 hours. 12/08/18 11:20 Urine Catheter - Catheter Streptococcus pneumoniae Antigen (M - Final 12/08/18 11:20 Urine Catheter - Catheter Legionella Antigen - Final Laboratory Results 12/09/18 09:00: PT 18.9 H, INR 1.6, APTT 37.5 H Current Medications Acetaminophen (Tylenol) 650 mg PO Q6H PRN PRN PRN Reason: Mild Pain (1-3)/Temp > 100.7 F Last Admin: 12/09/18 08:05 Dose: 650 mg Documented by: Albuterol Sulfate (Ventolin Aerosols) 2.5 mg INHALATION Q2H PRN PRN PRN Reason: SOB/Wheezing Albuterol/Ipratropium (Duoneb) 3 ml INHALATION Q4H.RT [facility] Last Admin: 12/10/18 06:44 Dose: 3 ml Documented by: Baclofen (Lioresal) 5 mg PO TID PRN PRN PRN Reason: MUSCLE SPASM Benzonatate (Tessalon Perle) 200 mg PO TID [facility] Last Admin: 12/10/18 06:08 Dose: 200 mg Documented by: Carbidopa/Levodopa (Sinemet) 1 tablet PO TIDAC [facility] Last Admin: 12/10/18 06:08 Dose: 1 tablet Documented by: Divalproex Sodium (Depakote Er) 250 mg PO DAILY@0800 [facility] Last Admin: 12/10/18 08:09 Dose: Not Given Documented by: Enoxaparin Sodium (Lovenox) 40 mg SC DAILY [facility] Last Admin: 12/09/18 09:12 Dose: 40 mg Documented by: Famotidine (Pepcid) 20 mg PO BID [facility] Last Admin: 12/09/18 22:00 Dose: 20 mg Documented by: Guaifenesin (Mucinex) 1,200 mg PO BID [facility] Last Admin: 12/09/18 22:01 Dose: 1,200 mg Documented by: Heparin Sodium (Beef Lung) () 50 units IV UD PRN PRN Reason: HEPARIN FLUSH Ceftriaxone Sodium (Rocephin) 1 gm in 50 mls @ 100 mls/hr IV Q12H [facility] Last Admin: 12/09/18 22:01 Dose: 100 mls/hr Documented by: Azithromycin 500 mg/ Dextrose 255 mls @ 250 mls/hr IV Q24 [facility] Stop: 12/11/18 11:02 Last Admin: 12/09/18 10:33 Dose: 250 mls/hr Documented by: Sodium Chloride () 250 mls @ 15 mls/hr IV .[id number] PRN PRN Reason: SALINE FLUSH Levetiracetam (Keppra Tablet) 500 mg PO BID [facility] Last Admin: 12/09/18 22:01 Dose: 500 mg Documented by: Levothyroxine Sodium (Synthroid) 100 mcg PO DAILY@0600 [facility] Last Admin: 12/10/18 06:08 Dose: 100 mcg Documented by: Nystatin (Nystatin) 500,000 unit PO 4X/DAY [facility] Last Admin: 12/09/18 22:01 Dose: 500,000 unit Documented by: Ondansetron HCl (Zofran) 4 mg IV Q8H PRN PRN PRN Reason: NAUSEA/VOMITING Oxycodone HCl (Oxyir) 5 mg PO Q4H PRN PRN PRN Reason: Moderate pain (4-6/10) Last Admin: 12/09/18 17:11 Dose: 5 mg Documented by: Pantoprazole Sodium (Protonix) 40 mg PO DAILY [facility] Last Admin: 12/09/18 09:11 Dose: 40 mg Documented by: Pramipexole Dihydrochloride (Mirapex) 0.25 mg PO QHS [facility] Last Admin: 12/09/18 22:01 Dose: 0.25 mg Documented by: Prednisone () 40 mg PO DAILY@0800 [facility] Promethazine HCl (Phenergan) 12.5 mg IV Q6H PRN PRN PRN Reason: Breakthrough Nausea/Vomiting Rizatriptan Benzoate (Maxalt) 10 mg PO UD PRN PRN Reason: migraine headache Senna/Docusate Sodium (Senokot-S, Rhea-Colace) 2 tablet PO BID PRN PRN Reason: Constipation Sodium Chloride () 10 ml IV UD PRN PRN Reason: VAD FLUSH Last Admin: 12/10/18 06:08 Dose: 10 ml Documented by: Throat Lozenges (Cepacol Sore Throat Lozenge) 1 lozenge MUCOUS MEM Q2H PRN PRN PRN Reason: Sore Throat/Cough Last Admin: 12/09/18 08:05 Dose: 1 lozenge Documented by: Medical Necessity - Tobacco Use Smoking Status: Current every day smoker Tobacco Use: Cigarettes Assessment/Plan All Active Problems (Last Reviewed 07/14/18 @ 10:23 by Sander Means MD) COPD exacerbation (Acute) Sepsis (Acute) Pneumonia (Acute) Encephalopathy acute (Acute) Leukocytosis (Acute) Acute delirium (Resolved) Adrenal insufficiency (Resolved) Breakthrough seizure (Resolved) Gram-negative pneumonia (Resolved) Hypotension (Resolved) MRSA pneumonia (Resolved) Respiratory failure with hypercapnia (Resolved) Septic shock (Resolved) Tobacco user (Resolved) The patient is a 68 year old F with multiple comorbidities as listed above including severe COPD, lung fibrosis and recurrent admission for respiratory failure came to ER with progressive worsening of shortness of breath for 3 days along with dry cough, poor oral intake, labored breathing consistent with respiratory failure. Patient had chills but denies any fever. Blood pressure was low 97/72, improved with IV fluid normal saline bolus 2 L. ABG 7.3 / on 3 L of oxygen through nasal cannula. Patient has significant leukocytosis 28,000 with left shift. BUN 36, creatinine 0.87, BNP 211. UA shows proteinuria, LE 25 otherwise unremarkable The patient was not put on BiPAP. Chest x-ray shows poor ventilation with shallow inspiratory effort. Bibasilar consolidation/small effusion with chronic interstitial changes. 1. Acute on chronic hypoxic respiratory failure, most probably from pneumonia/COPD exacerbation/chronic interstitial lung disease/pulmonary fibrosis: Patient is being admitted in ICU. On BiPAP with close monitoring of respiratory status. Mobile Paramedical Examiner consult reviewed and appreciated. BNP 211, not very high suggestive of heart failure but may be from pulmonary cause. INR 2.0, PTT 60.9. Albumin 2.2, globulin 5.2, probably coagulopathy from chronic liver disease with synthetic dysfunction. Repeat PT/PTT 2. COPD exacerbation with sepsis probably from pneumonia: The patient has a leukocytosis, lactic acid normal. Urinary antigens are negative. Blood cultures x2 are pending. Empirically started on IV ceftriaxone and Zithromax. MRSA nasal screen negative. On bronchodilator, IV Solu-Medrol, incentive spirometry and chest physiotherapy. 3. Acute encephalopathy, exact etiology unclear possible metabolic/infectious/polypharmacy: ABG, ammonia, B12 and folic acid ordered. CBC, CMP, magnesium and phosphorus ordered. Chest x-ray portable ordered although her breathing status is getting better. The patient has history of seizure and migraine headache therefore possible subclinical seizure. On Keppra and Depakote 250 mg extended release. Neurology consult for further evaluation and recommendation. Hold baclofen, sertraline. Patient is also on Sinemet. CT head without contrast was ordered and reported as no acute change. Chest x-ray was also reported and shows increased interstitial marking on the left seems improved on previous x-ray. ABG was done. 7.3 03/19/1978 on room air. Folate 14.8. CRP 130. Ammonia 36, slightly elevated. Patient overall clinically improved since morning. Chronic pulmonary fibrosis/interstitial lung disease: May need to repeat echo if respiratory condition does not improve, to evaluate right side of heart. Patient last echo in October 2016 reported as normal LV size with function, EF 55%. Normal RV size and systolic function. Valvular anatomy and function normal. CT chest was done and shows no active PE but moderately active emphysema and worsening of chronic interstitial lung disease. While bilateral hilar adenopathy, probably reactive in nature. 4. Hypertension-hypotension in ER resolved with IV fluid boluses. Monitor. Hold antihypertensive medication. 5. Tobacco dependence/cigarette smoking-encouraged smoking cessation. 6. Seizure disorder-continue home Keppra, divalproex regimen. 7. Hypothyroidism-continue home Synthroid regimen. TSH and free T4 0.04 and free T4 1.23. Decrease Synthroid dose to 100 mcg daily. 8. Anxiety/depression with anemia of chronic disease-during previous admission in September 2018, H&H was 8.8/28 but currently 11.6/34.6. Continue home Zoloft and Risperdal regimen. 9. RENNY-continue CPAP regimen. 10. RLS-continue Requip regimen. 11. GERD-continue PPI. DVT prophylaxis: Lovenox 40 subcu daily Advanced directive/care of life call: Advanced directive discussed with the patient's as the patient was mildly lethargic and on BiPAP. Out of all options given full code, DNR CC arrest and DNR CC, he wanted full code. Patient for a full resuscitation including intubation, vent management tube feeding and vasopressor support. Patient has MediPort in the chest. Microbiology Past 72 Hours 12/08/18 11:15 Blood Culture (Wb) - Other Blood Culture - Preliminary No growth in 48 hours. 12/08/18 10:10 Blood Culture (Wb) - Central Line Blood Culture - Preliminary No growth in 48 hours. 12/08/18 11:20 Urine Catheter - Catheter Streptococcus pneumoniae Antigen (M - Final 12/08/18 11:20 Urine Catheter - Catheter Legionella Antigen - Final Laboratory Results 12/10/18 10:00: WBC 10.7, RBC 3.25 L, Hgb 10.0 L, Hct 30.7 L, MCV 94.5, MCH 30.8, MCHC 32.6, RDW 15.1 H, RDW Differential 52.6 H, Plt Count 178, MPV 8.8, Neut % (Auto) Not Reportable, Absolute Neuts (auto) 10.3 H, Absolute Lymphs (auto) 0.21 L, Total Counted 100, Neutrophils % (Manual) 94 H, Band Neutrophils % 2, Lymphocytes % (Manual) 2 L, Monocytes % (Manual) 1, Myelocytes % 1 H, Diff Path Review May foll, Hypochromasia RARE 12/10/18 10:00: Sodium 140, Potassium 3.9, Chloride 109 H, Carbon Dioxide 24.0, Anion Gap 7, BUN 23 H, Creatinine 0.64, Estim Creat Clear Calc 53.55, Est GFR (MDRD) Af Amer 120, Est GFR (MDRD) Non-Af 99, BUN/Creatinine Ratio 36.2 H, Glucose 91, Calcium 8.5, Total Bilirubin 0.30, AST 17, ALT < 6 L, Alkaline Phosphatase 157 H, C-React Prot Ext Range 130.00 H, Total Protein 6.7, Albumin 2.1 L, Globulin 4.6 H, Albumin/Globulin Ratio 0.5 L, Folate 14.80 12/10/18 10:00: Vitamin B12 Pending 12/10/18 10:00: Ammonia 36.0 H 12/10/18 10:00: Phosphorus 2.7, Magnesium 2.4 12/10/18 10:06: Specimen Type ART, Sample Site L Radial, pH 7.39, Bicarbonate Actual 17.9 L, POC Total CO2 19, Base Excess -7 L, O2 Saturation 96, ABG pCO2 29.5 L, ABG pO2 78, Ronak Test POS, O2 Delivery Device Room Air, Blood Gas Notified Whom HOSP , Blood Gas Notified Time 950 Active Medications Acetaminophen (Tylenol) 650 mg PO Q6H PRN PRN PRN Reason: Mild Pain (1-3)/Temp > 100.7 F Last Admin: 12/08/18 18:46 Dose: 650 mg Documented by: Albuterol Sulfate (Ventolin Aerosols) 2.5 mg INHALATION Q2H PRN PRN PRN Reason: SOB/Wheezing Albuterol/Ipratropium (Duoneb) 3 ml INHALATION Q4H.RT [facility] Last Admin: 12/09/18 06:38 Dose: 3 ml Documented by: Benzonatate (Tessalon Perle) 200 mg PO TID [facility] Enoxaparin Sodium (Lovenox) 40 mg SC DAILY [facility] Famotidine (Pepcid) 20 mg PO BID [facility] Last Admin: 12/08/18 20:56 Dose: 20 mg Documented by: Guaifenesin (Mucinex) 1,200 mg PO BID [facility] Last Admin: 12/08/18 20:56 Dose: 1,200 mg Documented by: Heparin Sodium (Beef Lung) () 50 units IV UD PRN PRN Reason: HEPARIN FLUSH Ceftriaxone Sodium (Rocephin) 1 gm in 50 mls @ 100 mls/hr IV Q12H [facility] Last Admin: 12/08/18 20:56 Dose: 100 mls/hr Documented by: Azithromycin 500 mg/ Dextrose 255 mls @ 250 mls/hr IV Q24 [facility] Stop: 12/11/18 11:02 Sodium Chloride () 250 mls @ 15 mls/hr IV .[id number] PRN PRN Reason: SALINE FLUSH Methylprednisolone (Solu-Medrol) 40 mg IV Q8 [facility] Stop: 12/10/18 22:01 Last Admin: 12/09/18 04:49 Dose: 40 mg Documented by: Ondansetron HCl (Zofran) 4 mg IV Q8H PRN PRN PRN Reason: NAUSEA/VOMITING Oxycodone HCl (Oxyir) 5 mg PO Q4H PRN PRN PRN Reason: Moderate pain (4-6/10) Promethazine HCl (Phenergan) 12.5 mg IV Q6H PRN PRN PRN Reason: Breakthrough Nausea/Vomiting Senna/Docusate Sodium (Senokot-S, Rhea-Colace) 2 tablet PO BID PRN PRN Reason: Constipation Sodium Chloride () 10 ml IV UD PRN PRN Reason: VAD FLUSH Throat Lozenges (Cepacol Sore Throat Lozenge) 1 lozenge MUCOUS MEM Q2H PRN PRN PRN Reason: Sore Throat/Cough Last Admin: 12/09/18 04:49 Dose: 1 lozenge Documented by: Clinical Impression(s) from Imaging Studies Chest X-Ray 12/08/18 09:45 IMPRESSION: 1. Shallow inspiratory effort limiting evaluation of the lung bases. Bibasilar consolidation/small effusions cannot be entirely excluded. 2. Chronic interstitial changes plus or minus superimposed foci of pneumonitis. Chest CTA 12/08/18 15:18 IMPRESSION: 1. No acute pulmonary embolus. 2. Moderately advanced pulmonary emphysema and interval worsening of chronic interstitial lung disease. 3. Scattered patchy alveolar densities within the periphery of bilateral lower lobes and lingula suspicious for pneumonitis. 4. Mild bilateral hilar lymphadenopathy with interval worsening, these are likely reactive in nature. A few scattered borderline enlarged mediastinal lymph nodes. Individualized dose optimization techniques were used for this CT. Code Visit Inpatient E&M: 74380 Subs Hosp L3
--- NOTE | 2018-12-10 08:37 | RAD_ITS ---
STUDY: X-RAY CHEST REASON FOR EXAM: Female, 68 years old. TECHNIQUE: 1 view COMPARISON: December 08, 2018. FINDINGS: The heart is not enlarged. There is increase in the interstitial markings involving both lung dowell more so on the left with the prominence of the brandon bilaterally. There is central venous line with the tip in the superior vena cava. No evidence of pleural effusion or pneumothorax. The trachea is in the midline. The visualized bones are intact. RAD/Chest 1 View (Portable) IMPRESSION: Increased interstitial markings particularly on the left Electronically Signed: Xavier Ny, at 11:33 EDT Tel , Service support ,
--- NOTE | 2018-12-10 08:43 | CT_ITS ---
STUDY: CT BRAIN WITHOUT CONTRAST REASON FOR EXAM: Female, 68 years old. RADIATION DOSAGE (If Supplied By Facility): CTDIvol = ( 44.99 ) mGy, DLP = ( 812.98 ) mGycm TECHNIQUE: Transaxial CT imaging of the brain was performed without administration of intravenous contrast material. Individualized dose optimization techniques were used for this CT. COMPARISON: July 15, 2018 FINDINGS: Again noted old infarction involving the right parietal region with minimal ipsilateral dilatation of the occipital horn on the right side. There is moderate dilatation of the ventricular system. There is left-sided mastoidectomy with the probably internally placed electrode within the mastoid which represents hearing aid device. Otherwise no increased or decreased brain density. No subdural, epidural or intracerebral hemorrhage is seen. No midline shift identified. Other than the mastoidectomy on the left no abnormality detected in the skull base. The cranial vault is intact. The sinuses are clear. The orbits are unremarkable. 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 Mastoidectomy with a hearing aid device and electrode unchanged since the previous exam. Electronically Signed: Xavier Ny, at 10:12 EDT Tel , Service support ,
[2018-12-10] MEDS: guaiFENesin 1,200 MG Tablet 1200 MG PO ×2 (09:03→21:31)
[2018-12-10] MEDS: levETIRAcetam 500 MG Tablet PO ×2 (09:03→21:31)
[2018-12-10] MEDS: Pantoprazole Sodium 40 MG Tablet PO (09:03)
[2018-12-10] MEDS: Enoxaparin 40 MG/0.4 ML Syringe SC (09:03)
[2018-12-10] MEDS: NYSTATIN 500,000 UNIT/5 ML UDC 500000 UNIT PO ×3 (09:03→21:31)
[2018-12-10] MEDS: Famotidine 20 MG Tablet PO ×2 (09:03→21:32)
[2018-12-10 10:10] LABS: Allen Test POS; Base Excess -7 mmol/L (-2 to +2); Bicarbonate 17.9 mmol/L (22-26); Blood Gas Specimen Type ART; O2 Delivery Device Room Air; PO2 78 mmHG (75-100); SITE L Radial; SO2 96 % (95-99); Time Given 950; Total Carbon Dioxide 19 mmol/L; pCO2 29.5 mmHg (35-45); pH 7.39 (7.35-7.45)
[2018-12-10] MEDS: Ceftriaxone 1 GM/50 ML BAG IV ×2 (10:11→21:31)
[2018-12-10 10:20] LABS: Hematocrit 30.7 % (37-47); Mean Corp Hgb Conc 32.6 g/gl (32-36); Mean Corpuscular Hgb 30.8 pg (27.0-32.0); Mean Corpuscular Volume 94.5 fL (81-99); Mean Platelet Vol. 8.8 fl (6.2-12.0); Platelet Count 178 K/mm3 (150-450); RBC Distribution Width CV 15.1 % (11.6-14.6); RBC Distribution Width SD 52.6 fl (35.1-43.9); Red Blood Count 3.25 M/mm3 (4.2-5.4); White Blood Count 10.7 K/mm3 (4.4-11.0)
[2018-12-10 10:21] LABS: Differential Indicated MANUAL DIFF; POSITIVE COUNT YES; POSITIVE DIFFERENTIAL YES; POSITIVE MORPHOLOGY YES
[2018-12-10 10:50] LABS: Lymphocyte 2 % (19-41); Monocyte 1 % (0-10); Myelocyte 1 (0-0); Neutrophil-Band 2 % (0-5); Neutrophil-Segmented 94 % (47-70); Total Cells Counted 100 (MANUAL DIFF)
[2018-12-10 10:51] LABS: Absolute Lymphocyte Count 0.21 X10^3/ul (0.83-4.51); Absolute Neutrophil Count 10.3 X10^3/uL (2.0-7.7); Hypochromasia RARE
[2018-12-10 10:57] LABS: Magnesium 2.4 mg/dL (1.6-2.6); Phosphorus 2.7 mg/dL (2.5-4.9)
[2018-12-10] MEDS: predniSONE 20 MG Tablet 40 MG PO (11:06)
[2018-12-10 11:07] LABS: ALB/GLOB Ratio 0.5 RATIO (0.9-2.4); AST(SGOT) 17 U/L (15-37); Alanine Aminotransfer ALT/SGPT < 6 U/L (13-56); Albumin, Serum 2.1 g/dL (3.2-5.0); Alkaline Phosphatase 157 U/L (45-117); Anion Gap 7 (5-15); BUN 23 mg/dL (7-18); BUN/Creat Ratio 36.2 RATIO (10-20); Calcium,Total 8.5 mg/dL (8.5-10.1); Chloride 109 mmol/L (98-107); Creatinine, Serum 0.64 mg/dL (0.55-1.02); EST Glomerular Filtration Rate 99 mL/min (>60); Est Glom Filt Rate - Afr Amer 120 mL/min (>60); Estimated Creatinine Clearance 53.55 ml/min; Globulin 4.6 g/dL (2.2-4.2); Glucose 91 mg/dL (74-106); Potassium 3.9 mmol/L (3.5-5.1); Protein, Total 6.7 g/dL (6.4-8.2); Sodium Level 140 mmol/L (136-145)
[2018-12-10] MEDS: BENZOCAINE/MENTHOL 1 LOZENGE MUCOUS MEM (15:25)
[2018-12-10] MEDS: Acetaminophen 325 MG Tablet 650 MG PO (15:50)
--- NOTE | 2018-12-10 20:48 | NURSING ---
Verbal report given to Rivas Mahan RN. She will resume care of pt.
--- NOTE | 2018-12-10 20:49 | NURSING ---
This RN is taking over patient care at this time.
[2018-12-10] MEDS: Pramipexole Di-HCl 0.25 MG Tablet PO (21:31)
[2018-12-11] VITALS (20 sets, daily range): BP systolic 103–149; BP diastolic 58–71; PULSE 67–84; RESP 12–36; TEMP 36.5–37.1; O2SAT 91–97
[2018-12-11] MEDS: oxyCODONE 5 MG Tablet PO ×3 (02:19→14:30)
[2018-12-11] MEDS: Ipratropium/Albuterol Sulfate 3 ML AMPUL.NEB INHALATION ×4 (04:00→19:18)
[2018-12-11] MEDS: Carbidopa/Levodopa 25/100 Tablet PO ×3 (06:18→18:05)
[2018-12-11] MEDS: Levothyroxine 100 MCG Tablet PO (06:18)
[2018-12-11] MEDS: Benzonatate 100 MG Capsule 200 MG PO ×3 (06:18→21:01)
--- NOTE | 2018-12-11 08:28 | PCM.CONS.GEN ---
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 reports breathing improved, no other complaints per admit note: The patient is a 68 year old F with multiple comorbidities as listed above including COPD, lung fibrosis and recurrent admission for respiratory failure came to ER with progressive worsening of shortness of breath for 3 days along with dry cough, poor oral intake, labored breathing consistent with respiratory failure. Patient had chills but denies any fever. Blood pressure was low 97/72, improved with IV fluid normal saline bolus 2 L. ABG 7.3 5/40/73 on 3 L of oxygen through nasal cannula. Patient has significant leukocytosis 28,000 with left shift. BUN 36, creatinine 0.87, BNP 211. UA shows proteinuria, LE 25 otherwise unremarkable The patient was not put on BiPAP. Chest x-ray shows poor ventilation with shallow inspiratory effort. Bibasilar consolidation/small effusion with chronic interstitial changes. Past Medical History Past Medical History (Chronic Problems): Chronic Problems (Last Reviewed 07/14/18 @ 10:23 by Sander Means MD) Acute and chronic respiratory failure with hypoxia (Chronic) Nocturnal hypoxia (Chronic) On CPAP and O2 at night PRES (posterior reversible encephalopathy syndrome) (Chronic) Medication overuse headache (Chronic) Anxiety and depression (Chronic) Tobacco abuse (Chronic) RENNY (obstructive sleep apnea) (Chronic) Mild diastolic dysfunction (Chronic) Depression (Chronic) Restless leg (Chronic) HTN (hypertension) (Chronic) Presbycusis of both ears (Chronic) COPD (chronic obstructive pulmonary disease) (Chronic) Hypothyroidism (Chronic) Pulmonary fibrosis (Chronic) Medical History: Medical History (Last Reviewed 12/11/18 @ 10:29 by Sander Means MD) Leukocytosis (Acute) D72.829 RENNY (obstructive sleep apnea) (Chronic) G47.33 Mild diastolic dysfunction (Chronic) I51.9 Depression (Chronic) F32.9 Restless leg (Chronic) HTN (hypertension) (Chronic) I10 Presbycusis of both ears (Chronic) H91.13 COPD (chronic obstructive pulmonary disease) (Chronic) J44.9 Hypothyroidism (Chronic) E03.9 Pulmonary fibrosis (Chronic) J84.10 COPD with acute exacerbation J44.1 Gallstones K80.20 Septic shock A41.9, R65.21 UTI (urinary tract infection) N39.0 Anxiety F41.9 Bronchitis J40 Carpal tunnel syndrome G56.00 Cataract H26.9 Chronic back pain M54.9, G89.29 Migraine G43.909 Osteopenia M85.80 Solitary pulmonary nodule R91.1 Stage 2 moderate COPD by GOLD classification J44.9 Tobacco abuse Z72.0 Acute delirium (Resolved) R41.0 Acute respiratory failure J96.00 Adrenal insufficiency (Resolved) E27.40 H/O: hysterectomy Z98.890, Z90.710 Hypersomnia G47.10 Hypotension (Resolved) I95.9 MRSA pneumonia (Resolved) J15.212 Respiratory failure with hypercapnia (Resolved) J96.92 Allergies Sulfa (Sulfonamide Antibiotics) Adverse Reaction (Intermediate, Verified 12/08/18 10:27) Other - Messes with blood counts prochlorperazine edisylate [From Compazine] Adverse Reaction (Mild, Verified 12/08/18 10:27) Other - Restless legs prochlorperazine maleate [From Compazine] Adverse Reaction (Mild, Verified 12/08/18 10:27) Other - Restless legs Home Medications: Ambulatory Orders Medication Instructions Recorded Pantoprazole Sodium [Protonix] 40 mg PO DAILY 08/23/16 Sertraline HCl [Zoloft] 50 mg PO DAILY 12/14/17 Levothyroxine Sodium [Synthroid] 150 mcg PO MOTUWETHFR 05/16/18 Ropinirole HCl [Requip] 0.5 mg PO QHS 09/27/18 Albuterol Aerosols [Ventolin 2.5 mg INHALATION Q2H PRN PRN 09/29/18 Aerosols] vial.neb. Baclofen 5 - 10 mg PO TID PRN PRN 12/08/18 Budesonide/Formoterol Fumarate 2 puff IH BID 12/08/18 [Symbicort 160-4.5 Mcg Inhaler] Divalproex Sodium [Depakote] 250 mg PO DAILY 12/08/18 Ipratropium/Albuterol Sulfate 3 ml IH Q4H PRN PRN 12/08/18 [Iprat-Albut 0.5-3(2.5) mg/3 ml] Levetiracetam 500 mg PO BID 12/08/18 Lisinopril [Zestril] 2.5 mg PO DAILY 12/08/18 Melatonin 10 mg PO QHS 12/08/18 Rizatriptan Benzoate [Rizatriptan] 10 mg PO DAILY PRN PRN 12/08/18 Carbidopa/Levodopa [Carbidopa-Levo 1 tab PO TID 12/09/18 25-100 mg Odt] Surgical History: Surgical History (Last Reviewed 12/11/18 @ 10:29 by Sander Means MD) Cochlear implant in place Z96.21 Dr Andrade 2014 H/O adenoidectomy Z98.890, Z90.89 History of cataract surgery Z98.49 History of cholecystectomy Z98.890, Z90.49 History of lung biopsy Z98.890 Hx of appendectomy Z98.890, Z90.49 Hx of left knee surgery Z98.890 joint lipoma removal vocal nodules removed Surgical History: appendectomy, cholecystectomy, hysterectomy, total hip arthroplasty - Right, - - thyroidectomy and BL intraocular lens implants,cochear implant Psychiatric History: Anxiety, Depression, - - Suspected narcotic dependence. 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 Smoking Status: Current every day smoker Tobacco Use: Cigarettes - *Family History Maternal Family History: Family History (Last Reviewed 07/14/18 @ 10:24 by Sander Means MD) Mother Hypertension CVA (cerebral vascular accident) Father CVA (cerebral vascular accident) Hypertension Sister Colon cancer Grandfather Hypertension Heart disease History Items: Heart Disease, Stroke Paternal Family History: Family History (Last Reviewed 07/14/18 @ 10:24 by Sander Means MD) Mother Hypertension CVA (cerebral vascular accident) Father CVA (cerebral vascular accident) Hypertension Sister Colon cancer Grandfather Hypertension Heart disease History Items: Heart Disease, Stroke Sibling Family History: Family History (Last Reviewed 07/14/18 @ 10:24 by Sander Means MD) Mother Hypertension CVA (cerebral vascular accident) Father CVA (cerebral vascular accident) Hypertension Sister Colon cancer Grandfather Hypertension Heart disease History Items: - - sister with colon cancer Review of Systems Eyes: Denies: Blurred vision, Double vision HEENT: Denies: Head Aches, Sinus Congestion, Sinus Drainage Cardiovascular: Denies: Chest Pain, Palpitations Respiratory: Reports: Cough, Shortness of Breath Gastrointestinal: Denies: Abdominal Pain, Nausea, Vomiting Genitourinary: Denies: Dysuria Patient Problems: Active and Suspected Problems (Last Reviewed 07/14/18 @ 10:23 by Sander Means MD) COPD exacerbation (Acute) - Physical Exam General: Alert, - - knows month, year, not date, 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 HEENT: NERY, SEBASMI, - - chronic left field cut Neurological: Cranial nerves II-XII grossly intact, Muscle tone normal, - - left field cut, chronic asterixis bilat Vital Signs Temp Pulse Resp BP Pulse Ox 37.0 C 74 32 H 103/71 92 12/11/18 08:18 12/11/18 08:18 12/11/18 08:18 12/11/18 08:18 12/11/18 08:18 Oxygen Flow Rate (L/min) 1 Oxygen Delivery Method Nasal Cannula Weight: 60 kg Body Mass Index (BMI) 20.0 Finger Stick Blood Glucose 113 Intake and Output for Last 24 Hours 12/09/18 12/10/18 12/11/18 23:59 23:59 23:59 Intake Total 1436.1 / 1436.1 1873 / 1873 120 / 120 Output Total 650 / 650 1000 / 1000 1000 / 1000 Balance 786.1 / 786.1 873 / 873 -880 / -880 Microbiology Past 72 Hours 12/08/18 11:15 Blood Culture - Preliminary Blood Culture (Wb) - Other No growth in 48 hours. 12/08/18 10:10 Blood Culture - Preliminary Blood Culture (Wb) - Central Line No growth in 48 hours. 12/08/18 11:20 Streptococcus pneumoniae Antigen (M - Final Urine Catheter - Catheter 12/08/18 11:20 Legionella Antigen - Final Urine Catheter - Catheter Laboratory Tests Past 24 Hrs 12/10/18 12/10/18 12/10/18 10:00 10:00 10:00 WBC 10.7 RBC 3.25 L Hgb 10.0 L Hct 30.7 L MCV 94.5 MCH 30.8 MCHC 32.6 RDW 15.1 H RDW Differential 52.6 H Plt Count 178 MPV 8.8 Neut % (Auto) Not Reportable Absolute Neuts (auto) 10.3 H Absolute Lymphs (auto) 0.21 L Total Counted 100 Neutrophils % (Manual) 94 H Band Neutrophils % 2 Lymphocytes % (Manual) 2 L Monocytes % (Manual) 1 Myelocytes % 1 H Diff Path Review May foll Hypochromasia RARE Specimen Type Sample Site pH Bicarbonate Actual POC Total CO2 Base Excess O2 Saturation ABG pCO2 ABG pO2 Ronak Test O2 Delivery Device Blood Gas Notified Whom Blood Gas Notified Time Sodium 140 Potassium 3.9 Chloride 109 H Carbon Dioxide 24.0 Anion Gap 7 BUN 23 H Creatinine 0.64 Estim Creat Clear Calc 53.55 Est GFR (MDRD) Af Amer 120 Est GFR (MDRD) Non-Af 99 BUN/Creatinine Ratio 36.2 H Glucose 91 Calcium 8.5 Phosphorus Magnesium Total Bilirubin 0.30 AST 17 ALT < 6 L Alkaline Phosphatase 157 H Ammonia C-React Prot Ext Range 130.00 H Total Protein 6.7 Albumin 2.1 L Globulin 4.6 H Albumin/Globulin Ratio 0.5 L Vitamin B12 Pending Folate 14.80 12/10/18 12/10/18 12/10/18 10:00 10:00 10:06 WBC RBC Hgb Hct MCV MCH MCHC RDW RDW Differential Plt Count MPV Neut % (Auto) Absolute Neuts (auto) Absolute Lymphs (auto) Total Counted Neutrophils % (Manual) Band Neutrophils % Lymphocytes % (Manual) Monocytes % (Manual) Myelocytes % Diff Path Review Hypochromasia Specimen Type ART Sample Site L Radial pH 7.39 Bicarbonate Actual 17.9 L POC Total CO2 19 Base Excess -7 L O2 Saturation 96 ABG pCO2 29.5 L ABG pO2 78 Ronak Test POS O2 Delivery Device Room Air Blood Gas Notified Whom [facility] Blood Gas Notified Time 950 Sodium Potassium Chloride Carbon Dioxide Anion Gap BUN Creatinine Estim Creat Clear Calc Est GFR (MDRD) Af Amer Est GFR (MDRD) Non-Af BUN/Creatinine Ratio Glucose Calcium Phosphorus 2.7 Magnesium 2.4 Total Bilirubin AST ALT Alkaline Phosphatase Ammonia 36.0 H C-React Prot Ext Range Total Protein Albumin Globulin Albumin/Globulin Ratio Vitamin B12 Folate Current Home Med List Medication Instructions Recorded Confirmed Type Pantoprazole Sodium [Protonix] 40 mg PO DAILY 08/23/16 12/08/18 History Sertraline HCl [Zoloft] 50 mg PO DAILY 12/14/17 12/08/18 History Levothyroxine Sodium [Synthroid] 150 mcg PO MOTUWETHFR 05/16/18 12/08/18 History Ropinirole HCl [Requip] 0.5 mg PO QHS 09/27/18 12/08/18 History Albuterol Aerosols [Ventolin 2.5 mg INHALATION Q2H PRN PRN 09/29/18 12/08/18 Rx Aerosols] vial.neb. Baclofen 5 - 10 mg PO TID PRN PRN 12/08/18 12/08/18 History Budesonide/Formoterol Fumarate 2 puff IH BID 12/08/18 12/08/18 History [Symbicort 160-4.5 Mcg Inhaler] Divalproex Sodium [Depakote] 250 mg PO DAILY 12/08/18 12/08/18 History Ipratropium/Albuterol Sulfate 3 ml IH Q4H PRN PRN 12/08/18 12/08/18 History [Iprat-Albut 0.5-3(2.5) mg/3 ml] Levetiracetam 500 mg PO BID 12/08/18 12/08/18 History Lisinopril [Zestril] 2.5 mg PO DAILY 12/08/18 12/09/18 History Melatonin 10 mg PO QHS 12/08/18 12/08/18 History Rizatriptan Benzoate [Rizatriptan] 10 mg PO DAILY PRN PRN 12/08/18 12/10/18 History Carbidopa/Levodopa [Carbidopa-Levo 1 tab PO TID 12/09/18 12/09/18 History 25-100 mg Odt] Current Medications Generic Name Dose Route Start Last Admin Trade Name Freq PRN Reason Stop Dose Admin Acetaminophen 650 mg 12/08/18 15:01 12/10/18 15:50 Tylenol PO 650 mg Q6H PRN PRN Administration Mild Pain (1-3)/Temp > 100.7 F Albuterol Sulfate 2.5 mg 12/08/18 15:01 Ventolin Aerosols INHALATION Q2H PRN PRN SOB/Wheezing Albuterol/Ipratropium 3 ml 12/08/18 15:01 12/11/18 07:10 Duoneb INHALATION 3 ml Q4H.RT ELVI Administration Baclofen 5 mg 12/09/18 11:02 Lioresal PO TID PRN PRN MUSCLE SPASM Benzonatate 200 mg 12/09/18 14:00 12/11/18 06:18 Tessalon Perle PO 200 mg TID [facility] Administration Carbidopa/Levodopa 1 tablet 12/09/18 16:00 12/11/18 06:18 Sinemet PO 1 tablet TIDAC [facility] Administration Divalproex Sodium 250 mg 12/09/18 11:17 12/10/18 08:09 Depakote Er PO Not Given DAILY@0800 [facility] Enoxaparin Sodium 40 mg 12/09/18 10:01 12/10/18 09:03 Lovenox SC 40 mg DAILY [facility] Administration Famotidine 20 mg 12/08/18 22:00 12/10/18 21:32 Pepcid PO 20 mg BID [facility] Administration Guaifenesin 1,200 mg 12/08/18 22:00 12/10/18 21:31 Mucinex PO 1,200 mg BID [facility] Administration Heparin Sodium (Beef Lung) 50 units 12/09/18 05:20 IV UD PRN HEPARIN FLUSH Ceftriaxone Sodium 1 gm in 50 mls @ 100 mls/hr 12/08/18 22:00 12/10/18 21:31 Rocephin IV 100 mls/hr Q12H [facility] Administration Azithromycin 500 mg/ Dextrose 255 mls @ 250 mls/hr 12/09/18 10:00 12/10/18 11:05 IV 12/11/18 11:02 250 mls/hr Q24 ELVI Administration Sodium Chloride 250 mls @ 15 mls/hr 12/09/18 05:20 IV .[id number] PRN SALINE FLUSH Levetiracetam 500 mg 12/09/18 10:00 12/10/18 21:31 Keppra Tablet PO 500 mg BID [facility] Administration Levothyroxine Sodium 100 mcg 12/09/18 08:03 12/11/18 06:18 Synthroid PO 100 mcg DAILY@0600 [facility] Administration Nystatin 500,000 unit 12/09/18 14:00 12/10/18 21:31 Nystatin PO 500,000 unit 4X/DAY [facility] Administration Ondansetron HCl 4 mg 12/08/18 15:01 Zofran IV Q8H PRN PRN NAUSEA/VOMITING Oxycodone HCl 5 mg 12/08/18 15:01 12/11/18 07:00 Oxyir PO 5 mg Q4H PRN PRN Administration Moderate pain (4-6/10) Pantoprazole Sodium 40 mg 12/09/18 10:00 12/10/18 09:03 Protonix PO 40 mg DAILY ELVI Administration Pramipexole Dihydrochloride 0.25 mg 12/09/18 22:00 12/10/18 21:31 Mirapex PO 0.25 mg QHS ELVI Administration Prednisone 40 mg 12/10/18 12:00 12/10/18 11:06 PO 40 mg DAILY@0800 ELVI Administration Promethazine HCl 12.5 mg 12/08/18 15:01 Phenergan IV Q6H PRN PRN Breakthrough Nausea/Vomiting Rizatriptan Benzoate 10 mg 12/10/18 08:08 Maxalt PO UD PRN migraine headache Senna/Docusate Sodium 2 tablet 12/08/18 15:01 Senokot-S, Rhea-Colace PO BID PRN Constipation Sodium Chloride 10 ml 12/09/18 05:20 12/10/18 21:31 IV 10 ml UD PRN Administration VAD FLUSH Throat Lozenges 1 lozenge 12/08/18 15:01 12/10/18 15:25 Cepacol Sore Throat Lozenge MUCOUS MEM 1 lozenge Q2H PRN PRN Administration Sore Throat/Cough ct reviewed, 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 Assessment/Plan All Active Problems (Last Reviewed 07/14/18 @ 10:23 by Sander Means MD) COPD exacerbation (Acute) Sepsis (Acute) Pneumonia (Acute) Encephalopathy acute (Acute) Leukocytosis (Acute) Acute delirium (Resolved) Adrenal insufficiency (Resolved) Breakthrough seizure (Resolved) Gram-negative pneumonia (Resolved) Hypotension (Resolved) MRSA pneumonia (Resolved) Respiratory failure with hypercapnia (Resolved) Septic shock (Resolved) Tobacco user (Resolved) encephalopathy due to pneumonia, no evidence of new oil spot washer injury agree with aggressive rx of infection therapies no change in meds or diagnostic studies from neuro standpoint please recall if needed
[2018-12-11 08:55] LABS: Vitamin B12 > 2000 pg/mL (211-911)
[2018-12-11] MEDS: Divalproex (ER) 250 MG Tablet PO (09:59)
[2018-12-11] MEDS: Enoxaparin 40 MG/0.4 ML Syringe SC (10:00)
[2018-12-11] MEDS: predniSONE 20 MG Tablet 40 MG PO (10:00)
[2018-12-11] MEDS: Famotidine 20 MG Tablet PO ×2 (10:01→21:01)
[2018-12-11] MEDS: guaiFENesin 1,200 MG Tablet 1200 MG PO ×2 (10:01→21:02)
[2018-12-11] MEDS: Pantoprazole Sodium 40 MG Tablet PO (10:01)
[2018-12-11] MEDS: NYSTATIN 500,000 UNIT/5 ML UDC 500000 UNIT PO ×4 (10:01→21:02)
[2018-12-11] MEDS: Ceftriaxone 1 GM/50 ML BAG IV ×2 (10:02→21:01)
[2018-12-11] MEDS: Acetaminophen 325 MG Tablet 650 MG PO ×2 (10:02→18:05)
[2018-12-11] MEDS: 0.9% NaCl VAD Flush 10 ML IV ×3 (10:03→20:50)
--- NOTE | 2018-12-11 10:21 | CASEMGMT ---
[facility] notified of pt admission at this time. RN CM to keep them updated on pt discharge plan. Per , pt has RN, PT/OT at this time. Resumption of care order already entered. SStaten VERO CM
[2018-12-11] MEDS: levETIRAcetam 500 MG Tablet PO ×2 (11:38→21:02)
--- NOTE | 2018-12-11 12:57 | CHAPLAIN ---
Type of Pastoral Visit _x__ Initial Visit ___ Follow-up Visit ___ On-call Visit ___ General Patient Visit ___ Spiritual Assessment ___ Family Conference ___ Bereavement ___ Rapid Response ___ Code Blue ___ Other (describe below) Pastoral Care Referral From _x__ Patient ___ Family ___ Nurse ___ Physician ___ Arcgis Developer ___ Vendor Representatives ___ Other (describe below) Sacrament/Intervention ___ Active listening ___ Anointing ___ Quaker ___ Bereavement ___ Communion ___ Jessica exploration ___ ___ Life review _x__ Prayer ___ Reconciliation ___ Sacrament of Sick _x__ Supportive presence ___ Wedding ___ Other (describe below) Pastoral Comments
[2018-12-11 13:41] LABS: Bedside Glucose 121 mg/dL (70-110)
[2018-12-11 14:32] LABS: Pathologist Review Reviewed
--- NOTE | 2018-12-11 15:00 | PCM.PN.PUL ---
Patient Problems: Active and Suspected Problems (Last Reviewed 12/11/18 @ 10:29 by Sander Means MD) COPD exacerbation (Acute) Subjective: Patient did okay overnight from a respiratory standpoint. However, patient has remained significantly confused today. Patient was unable to recognize me despite taking care of her for the last 5 years. Patient denied any pain. Patient has been having issues with her cochlear implants and has difficulty hearing. - Physical Exam General: Alert, No apparent distress, Confused, Disoriented, - - Appears older than stated age HEENT: Atraumatic, PERRLA, EOMI, Normocephalic, - - Cochlear implants not in place Oral: Moist Mucosa, No Gingival or Mucosal Lesions/ Ulcerations Neck: Supple, No JVD, No Nodes, Trachea Midline Lungs: No rhonchi, No rales, Diminished, Wheezes Cardiovascular: Regular rate, Regular Rhythm, Normal S1, Normal S2, No murmurs, No rub noted, No Gallop Abdomen: Bowel Sounds Present, Soft, Non Tender, Non-Distended Extremities: No cyanosis, No edema, Capillary Refill Less than 3 Seconds, Clubbing Skin: No rashes, No breakdown, - - Dermal atrophy noted Musculoskeletal: No Tenderness to Palpation of Joints or Extremities Lymphatic: No Cervical, Supraclavicular, or Inguinal Adenopathy Neurological: Neuro grossly intact, Motor Exam 5/5 strength throughout Psych/Mental Status: Flat Affect Vital Signs Temp Pulse Resp BP Pulse Ox 36.7 C 70 24 H 120/59 L 97 12/11/18 14:00 12/11/18 14:00 12/11/18 14:00 12/11/18 14:00 12/11/18 14:00 Oxygen Flow Rate (L/min) 2 Oxygen Delivery Method Nasal Cannula Weight: 60 kg Body Mass Index (BMI) 20.0 Finger Stick Blood Glucose 113 Intake and Output for Last 24 Hours 12/09/18 12/10/18 12/11/18 23:59 23:59 23:59 Intake Total 1436.1 / 1436.1 1873 / 1873 752 / 752 Output Total 650 / 650 1000 / 1000 1900 / 1900 Balance 786.1 / 786.1 873 / 873 -1148 / -1148 Microbiology Past 72 Hours 12/08/18 11:15 Blood Culture - Preliminary Blood Culture (Wb) - Other No growth in 48 hours. 12/08/18 10:10 Blood Culture - Preliminary Blood Culture (Wb) - Central Line No growth in 48 hours. 12/08/18 11:20 Streptococcus pneumoniae Antigen (M - Final Urine Catheter - Catheter 12/08/18 11:20 Legionella Antigen - Final Urine Catheter - Catheter Laboratory Tests Past 24 Hrs 12/10/18 12/10/18 10:00 10:00 Diff Path Review Reviewed Vitamin B12 > 2000 H POC Glucose 12/11/18 13:33 POC Glucose 121 H Medical Necessity - Tobacco Use Smoking Status: Current every day smoker Tobacco Use: Cigarettes Assessment/Plan All Active Problems (Last Reviewed 12/11/18 @ 10:29 by Sander Means MD) COPD exacerbation (Acute) Sepsis (Acute) Pneumonia (Acute) Encephalopathy acute (Acute) Leukocytosis (Acute) Acute delirium (Resolved) Adrenal insufficiency (Resolved) Breakthrough seizure (Resolved) Gram-negative pneumonia (Resolved) Hypotension (Resolved) MRSA pneumonia (Resolved) Respiratory failure with hypercapnia (Resolved) Septic shock (Resolved) Tobacco user (Resolved) RECOMMENDATIONS: 1. Continue antibiotics, steroids and bronchodilators. 2. Continue PAP therapy with naps and nightly. 3. Outpatient pulmonary follow-up 4. Smoking cessation is advisable. 5. Perform walking oximetry study prior to consideration for discharge from the hospital. IMPRESSIONS: 1. Acute on chronic hypoxemic respiratory failure Patient has been lost to follow-up as an outpatient. Unclear patient has been compliant with her maintenance inhalers. Patient does have severe COPD and fibrotic changes with upper lobe bronchiectasis. Patient could be placed on BiPAP therapy overnight. We will continue with steroids and antibiotics. Patient appears to have significant delirium at this time, which may be exacerbated by lack of cochlear implant placement. 2. Severe obstructive lung disease/interstitial lung disease/continued tobacco dependency Patient very confused at this time. Patient unable to recognize me despite seeing her multiple times in the past. Patient has requested to be aggressive in the past, but has been declining over several years. Oxygenation appears to be appropriate at this time. Patient's was not at the bedside for further discussion. 3. Obstructive sleep apnea Continue nocturnal Pap therapy. 4. Hypertension/unspecified seizure disorder/hypothyroidism/anxiety/depression Complicates care, management, recovery and prognosis. Continue home medications as indicated. Physical therapy to work with the patient. Code Visit Inpatient E&M: 19506 Subs Hosp L2
--- NOTE | 2018-12-11 15:46 | PN_ITS ---
Patient Problems: Active and Suspected Problems (Last Reviewed 12/11/18 @ 10:29 by Sander Means MD) COPD exacerbation (Acute) Subjective: Patient was seen and examined. She feels good and better. No acute events overnight. Off Bipap at the time of exam. On 2 L nasal cannula oxygen. Vitals/I&O's: Vital Signs Temp Pulse Resp BP Pulse Ox 98.1 F 70 24 H 120/59 L 97 12/11/18 14:00 12/11/18 14:00 12/11/18 14:00 12/11/18 14:00 12/11/18 14:00 Oxygen Flow Rate (L/min) 2 Oxygen Delivery Method Nasal Cannula Weight: 60 kg Body Mass Index (BMI) 20.0 Finger Stick Blood Glucose 113 Intake and Output for Last 24 Hours 12/09/18 12/10/18 12/11/18 23:59 23:59 23:59 Intake Total 1436.1 / 1436.1 1873 / 1873 752 / 752 Output Total 650 / 650 1000 / 1000 1900 / 1900 Balance 786.1 / 786.1 873 / 873 -1148 / -1148 General: Alert, Oriented x3, Cooperative, No apparent distress, - - on 2L oxygen, appears frail HEENT: Atraumatic, PERRLA, EOMI, Normocephalic Neck: Supple, No JVD, Negative Carotid Bruits Lungs: Normal air movement, Diminished Cardiovascular: Regular rate, Regular Rhythm, Normal S1, Normal S2, No murmurs Abdomen: Bowel Sounds Present, Soft, Non Tender, Non-Distended, No Hepato- splenomegaly Extremities: No edema Skin: No rashes Musculoskeletal: No Tenderness to Palpation of Joints or Extremities Neurological: Cranial nerves II-XII grossly intact, Neuro grossly intact Psych/Mental Status: Normal Affect, Appropriate Microbiology Past 72 Hours 12/08/18 11:15 Blood Culture (Wb) - Other Blood Culture - Preliminary No growth in 48 hours. 12/08/18 10:10 Blood Culture (Wb) - Central Line Blood Culture - Preliminary No growth in 48 hours. 12/08/18 11:20 Urine Catheter - Catheter Streptococcus pneumoniae Antigen (M - Final 12/08/18 11:20 Urine Catheter - Catheter Legionella Antigen - Final Laboratory Results 12/10/18 10:00: Diff Path Review Reviewed 12/10/18 10:00: Vitamin B12 > 2000 H 12/11/18 13:33: POC Glucose 121 H Current Medications Acetaminophen (Tylenol) 650 mg PO Q6H PRN PRN PRN Reason: Mild Pain (1-3)/Temp > 100.7 F Last Admin: 12/11/18 10:02 Dose: 650 mg Documented by: Albuterol Sulfate (Ventolin Aerosols) 2.5 mg INHALATION Q2H PRN PRN PRN Reason: SOB/Wheezing Albuterol/Ipratropium (Duoneb) 3 ml INHALATION Q4H.RT [facility] Last Admin: 12/11/18 11:08 Dose: 3 ml Documented by: Baclofen (Lioresal) 5 mg PO TID PRN PRN PRN Reason: MUSCLE SPASM Benzonatate (Tessalon Perle) 200 mg PO TID [facility] Last Admin: 12/11/18 14:30 Dose: 200 mg Documented by: Carbidopa/Levodopa (Sinemet) 1 tablet PO TIDAC [facility] Last Admin: 12/11/18 12:06 Dose: 1 tablet Documented by: Divalproex Sodium (Depakote Er) 250 mg PO DAILY@0800 [facility] Last Admin: 12/11/18 09:59 Dose: 250 mg Documented by: Enoxaparin Sodium (Lovenox) 40 mg SC DAILY [facility] Last Admin: 12/11/18 10:00 Dose: 40 mg Documented by: Famotidine (Pepcid) 20 mg PO BID [facility] Last Admin: 12/11/18 10:01 Dose: 20 mg Documented by: Guaifenesin (Mucinex) 1,200 mg PO BID [facility] Last Admin: 12/11/18 10:01 Dose: 1,200 mg Documented by: Heparin Sodium (Beef Lung) () 50 units IV UD PRN PRN Reason: HEPARIN FLUSH Ceftriaxone Sodium (Rocephin) 1 gm in 50 mls @ 100 mls/hr IV Q12H [facility] Last Admin: 12/11/18 10:02 Dose: 100 mls/hr Documented by: Sodium Chloride () 250 mls @ 15 mls/hr IV .[id number] PRN PRN Reason: SALINE FLUSH Levetiracetam (Keppra Tablet) 500 mg PO BID [facility] Last Admin: 12/11/18 11:38 Dose: 500 mg Documented by: Levothyroxine Sodium (Synthroid) 100 mcg PO DAILY@0600 [facility] Last Admin: 12/11/18 06:18 Dose: 100 mcg Documented by: Nutritional Formula (Lactose Free) (Ensure Enlive) 120 ml PO 4X/DAY [facility] Last Admin: 12/11/18 14:30 Dose: 120 ml Documented by: Nystatin (Nystatin) 500,000 unit PO 4X/DAY [facility] Last Admin: 12/11/18 14:30 Dose: 500,000 unit Documented by: Ondansetron HCl (Zofran) 4 mg IV Q8H PRN PRN PRN Reason: NAUSEA/VOMITING Oxycodone HCl (Oxyir) 5 mg PO Q4H PRN PRN PRN Reason: Moderate pain (4-6/10) Last Admin: 12/11/18 14:30 Dose: 5 mg Documented by: Pantoprazole Sodium (Protonix) 40 mg PO DAILY [facility] Last Admin: 12/11/18 10:01 Dose: 40 mg Documented by: Pramipexole Dihydrochloride (Mirapex) 0.25 mg PO QHS [facility] Last Admin: 12/10/18 21:31 Dose: 0.25 mg Documented by: Prednisone () 40 mg PO DAILY@0800 [facility] Last Admin: 12/11/18 10:00 Dose: 40 mg Documented by: Promethazine HCl (Phenergan) 12.5 mg IV Q6H PRN PRN PRN Reason: Breakthrough Nausea/Vomiting Rizatriptan Benzoate (Maxalt) 10 mg PO UD PRN PRN Reason: migraine headache Senna/Docusate Sodium (Senokot-S, Rhea-Colace) 2 tablet PO BID PRN PRN Reason: Constipation Sodium Chloride () 10 ml IV UD PRN PRN Reason: VAD FLUSH Last Admin: 12/11/18 10:03 Dose: 10 ml Documented by: Throat Lozenges (Cepacol Sore Throat Lozenge) 1 lozenge MUCOUS MEM Q2H PRN PRN PRN Reason: Sore Throat/Cough Last Admin: 12/10/18 15:25 Dose: 1 lozenge Documented by: Medical Necessity - Tobacco Use Smoking Status: Current every day smoker Tobacco Use: Cigarettes Assessment/Plan All Active Problems (Last Reviewed 12/11/18 @ 10:29 by Sander Means MD) COPD exacerbation (Acute) Sepsis (Acute) Pneumonia (Acute) Encephalopathy acute (Acute) Leukocytosis (Acute) Acute delirium (Resolved) Adrenal insufficiency (Resolved) Breakthrough seizure (Resolved) Gram-negative pneumonia (Resolved) Hypotension (Resolved) MRSA pneumonia (Resolved) Respiratory failure with hypercapnia (Resolved) Septic shock (Resolved) Tobacco user (Resolved) 68 year old F with severe COPD/lung fibrosis, history of recurrent admission for acute respiratory failure admitted with progressive worsening of shortness of breath for 3 days along with dry cough, poor oral intake, labored breathing. 1. Acute on chronic hypoxic respiratory failure, secondary to probable acute COPD exacerbation/chronic interstitial lung disease/pulmonary fibrosis, was in ICU, now in PCU, was on BiPAP, improved, nasal cannula oxygen 2. Acute COPD exacerbation, improving, on breathing treatments, prednisone, 3. Acute metabolic encephalopathy secondary to #1 and #2, persistent, very slowly improving, will continue to monitor 4. Hypertension, controlled, off blood pressure medicine account of hypotension 5. Seizure disorder, on Keppra, valproic acid 6. Hypothyroidism, stable, on Synthroid 7. Anxiety/depression, on home Zoloft and Risperdal regimen. 8. RENNY on CPAP. 9. RLS, on Requip 10. DVT PPx- Lovenox SC Code Visit Inpatient E&M: 54404 Subs Hosp L2
--- NOTE | 2018-12-11 18:30 | CASEMGMT ---
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 Documents completed, original provided to patient and copy placed on patient chart. Martina CANO, OMID
[2018-12-11] MEDS: Pramipexole Di-HCl 0.25 MG Tablet PO (21:02)
[2018-12-11 21:37] LABS: Magnesium 2.1 mg/dL (1.6-2.6)
[2018-12-12] VITALS (19 sets, daily range): BP systolic 113–148; BP diastolic 56–66; PULSE 60–85; RESP 16–24; TEMP 36.5–36.8; O2SAT 86–94
[2018-12-12] MEDS: Levothyroxine 100 MCG Tablet PO (05:23)
[2018-12-12] MEDS: Benzonatate 100 MG Capsule 200 MG PO ×3 (05:23→22:26)
[2018-12-12] MEDS: Ipratropium/Albuterol Sulfate 3 ML AMPUL.NEB INHALATION ×4 (07:29→20:00)
[2018-12-12] MEDS: Divalproex (ER) 250 MG Tablet PO (08:02)
[2018-12-12] MEDS: predniSONE 20 MG Tablet 40 MG PO (08:02)
--- NOTE | 2018-12-12 08:07 | PN_ITS ---
Patient Problems: Active and Suspected Problems (Last Reviewed 12/11/18 @ 10:29 by Sander Means MD) COPD exacerbation (Acute) Subjective: Patient much more appropriate today compared to previous examination. Patient still was confused on my identity despite previous encounters for the past 5 years. However, patient did take her cochlear implant, turn it on and put it in place. Patient knew she was at [facility], but had no recollection of her hospital visit. - Physical Exam General: Alert, Cooperative, No apparent distress, - - No conversational dyspnea. HEENT: Atraumatic, PERRLA, EOMI, Normocephalic, - - No scleral icterus or injection noted Oral: Moist Mucosa, No Gingival or Mucosal Lesions/ Ulcerations Neck: Supple, No JVD, No Nodes, Trachea Midline Lungs: No rhonchi, No wheeze, Rales, - - Symmetric expansion. No dullness to percussion. Cardiovascular: Regular rate, Regular Rhythm, Normal S1, Normal S2, No murmurs, No rub noted, No Gallop Abdomen: Bowel Sounds Present, Soft, Non Tender, Non-Distended Extremities: No cyanosis, Capillary Refill Less than 3 Seconds, Clubbing, Edema Skin: No rashes, No breakdown Musculoskeletal: No Tenderness to Palpation of Joints or Extremities Lymphatic: No Cervical, Supraclavicular, or Inguinal Adenopathy Neurological: Cranial nerves II-XII grossly intact, Neuro grossly intact, Motor Exam 5/5 strength throughout, - - Does well with cochlear implant Psych/Mental Status: Normal Affect, Appropriate Vital Signs Temp Pulse Resp BP Pulse Ox 36.8 C 65 20 H 148/66 H 92 12/12/18 07:41 12/12/18 07:41 12/12/18 07:58 12/12/18 07:41 12/12/18 07:58 Oxygen Flow Rate (L/min) 2 Oxygen Delivery Method Nasal Cannula Weight: 58 kg Body Mass Index (BMI) 20.0 Finger Stick Blood Glucose 113 Intake and Output for Last 24 Hours 12/10/18 12/11/18 12/12/18 23:59 23:59 23:59 Intake Total 1873 / 1873 1373 / 1373 120 / 120 Output Total 1000 / 1000 3600 / 3600 600 / 600 Balance 873 / 873 -2227 / -2227 -480 / -480 Microbiology Past 72 Hours 12/08/18 11:15 Blood Culture - Preliminary Blood Culture (Wb) - Other No growth in 48 hours. 12/08/18 10:10 Blood Culture - Preliminary Blood Culture (Wb) - Central Line No growth in 48 hours. Laboratory Tests Past 24 Hrs 12/10/18 12/10/18 12/11/18 10:00 10:00 20:50 Diff Path Review Reviewed Magnesium 2.1 Vitamin B12 > 2000 H POC Glucose 12/11/18 13:33 POC Glucose 121 H Medical Necessity - Tobacco Use Smoking Status: Current every day smoker Tobacco Use: Cigarettes Assessment/Plan All Active Problems (Last Reviewed 12/11/18 @ 10:29 by Sander Means MD) COPD exacerbation (Acute) Sepsis (Acute) Pneumonia (Acute) Encephalopathy acute (Acute) Leukocytosis (Acute) Acute delirium (Resolved) Adrenal insufficiency (Resolved) Breakthrough seizure (Resolved) Gram-negative pneumonia (Resolved) Hypotension (Resolved) MRSA pneumonia (Resolved) Respiratory failure with hypercapnia (Resolved) Septic shock (Resolved) Tobacco user (Resolved) RECOMMENDATIONS: 1. Continue antibiotics and bronchodilators. 2. Continue PAP therapy with naps and nightly. 3. Outpatient pulmonary follow-up 4. Wean prednisone over the next 12 to 14 days 5. Perform walking oximetry study prior to consideration for discharge from the hospital. IMPRESSIONS: 1. Acute on chronic hypoxemic respiratory failure Patient has been lost to follow-up as an outpatient. Unclear patient has been compliant with her maintenance inhalers. Patient does have severe COPD and fibrotic changes with upper lobe bronchiectasis. Patient should be placed on BiPAP therapy overnight. We will continue with steroids and antibiotics. Patient appears to have significant delirium at this time, which may be exacerbated by lack of cochlear implant placement. 2. Severe obstructive lung disease/interstitial lung disease/continued tobacco dependency Patient much more appropriate at this time. Patient unable to recognize me despite seeing her multiple times in the past. Patient has requested to be aggressive in the past, but has been declining over several years. Oxygenation appears to be at baseline at this time. Patient's was not at the bedside for further discussion. 3. Obstructive sleep apnea Continue nocturnal Pap therapy. 4. Hypertension/unspecified seizure disorder/hypothyroidism/anxiety/depression Complicates care, management, recovery and prognosis. Continue home medications as indicated. Physical therapy to work with the patient. Code Visit Inpatient E&M: 19058 Subs Hosp L2
[2018-12-12] MEDS: guaiFENesin 1,200 MG Tablet 1200 MG PO ×2 (09:04→22:27)
[2018-12-12] MEDS: Famotidine 20 MG Tablet PO ×2 (09:04→22:28)
[2018-12-12] MEDS: Pantoprazole Sodium 40 MG Tablet PO (09:04)
[2018-12-12] MEDS: oxyCODONE 5 MG Tablet PO ×2 (09:04→22:26)
[2018-12-12] MEDS: NYSTATIN 500,000 UNIT/5 ML UDC 500000 UNIT PO ×4 (09:05→22:28)
[2018-12-12] MEDS: Ceftriaxone 1 GM/50 ML BAG IV (10:19)
[2018-12-12] MEDS: 0.9% NaCl VAD Flush 10 ML IV (10:19)
[2018-12-12] MEDS: Enoxaparin 40 MG/0.4 ML Syringe SC (10:20)
[2018-12-12] MEDS: levETIRAcetam 500 MG Tablet PO ×2 (10:20→22:27)
--- NOTE | 2018-12-12 10:30 | NURSING ---
Pt refused to order breakfast- states she never eats breakfast. Pt did drink ensure per order.
--- NOTE | 2018-12-12 12:20 | CASEMGMT ---
Patient has a Healthcare POA and Healthcare LW in her paper chart. SW completed these documents with patient and her this visit. Edith ANNE MSW
--- NOTE | 2018-12-12 14:40 | CASEMGMT ---
Addendum entered by Marshall Jasso 12/12/18 15:39: Per nursing and therapy, pt is continuing to need 2 assist and not safe for return home. Pt to stay today, Shayne HERNANDEZ working with for dc planning. Dr. Modi and nurse laquita. Camille JOHN RN ACM Original Note: RN MARYELLEN Note: Pt to return home with [facility] PH: [phone]; FX: [phone]. Green sheet given to charge nurse- if pt dc's today to call [facility] and fax DC instructions. Camille JOHN RN ACM
--- NOTE | 2018-12-12 15:09 | CASEMGMT ---
SW spoke with patient about d/c plan. She asked SW to talk with her . SW called patient's and discussed d/c plan. He said patient has used her 100 days. He said his goal was to keep her home for 60 days so they can start back over at day 1. MARY went over therapy notes with him. He said that is all she is able to do at home, stand and pivot. He uses a gait belt to get her up. MARY went over Medicaid guidelines and it does not sound like they would qualify even for correction Medicaid. He said he may be able to private pay for a couple of months, but that is it. He then said he plans on taking her home at discharge. Plan: Home with resumption of home health. Edith ANNE MSW
--- NOTE | 2018-12-12 16:10 | CASEMGMT ---
SW spoke with patient's again. SW let him know patient should really go to a SNF as she is very weak. He agreed and he would prefer [facility]. SW called [facility] and made a referral as well as faxed over referral. SW spoke with patient letting her know and she was in agreement. MARY notified RN. Plan: d/c to [facility] private pay pending acceptance. Edith ANNE MSW
--- NOTE | 2018-12-12 17:45 | PN_ITS ---
Patient Problems: Active and Suspected Problems (Last Reviewed 12/11/18 @ 10:29 by Sander Means MD) COPD exacerbation (Acute) Subjective: Patient was seen and examined. No acute events overnight. Patient appears improved. Denies any chest pain or dizziness. On 2 L of oxygen. Objective: Physical exam: General: Alert, Oriented x3, Cooperative, No apparent distress, - - on 2L oxygen, appears frail HEENT: Atraumatic, PERRLA, EOMI, Normocephalic Neck: Supple, No JVD, Negative Carotid Bruits Lungs: Normal air movement, Diminished Cardiovascular: Regular rate, Regular Rhythm, Normal S1, Normal S2, No murmurs Abdomen: Bowel Sounds Present, Soft, Non Tender, Non-Distended, No Hepato- splenomegaly Extremities: No edema Skin: No rashes Musculoskeletal: No Tenderness to Palpation of Joints or Extremities Neurological: Cranial nerves II-XII grossly intact, Neuro grossly intact Psych/Mental Status: Normal Affect, Appropriate Vitals/I&O's: Vital Signs Temp Pulse Resp BP Pulse Ox 98.1 F 69 24 H 116/56 L 92 12/12/18 15:20 12/12/18 15:20 12/12/18 15:26 12/12/18 15:20 12/12/18 15:30 Oxygen Flow Rate (L/min) [At 0 REST on Room Air] Oxygen Flow Rate (L/min) 2 Oxygen Delivery Method Nasal Cannula Weight: 58 kg Body Mass Index (BMI) 20.0 Finger Stick Blood Glucose 113 Intake and Output for Last 24 Hours 12/10/18 12/11/18 12/12/18 23:59 23:59 23:59 Intake Total 1873 / 1873 1373 / 1373 1176 / 1176 Output Total 1000 / 1000 3600 / 3600 1700 / 1700 Balance 873 / 873 -2227 / -2227 -524 / -524 Microbiology Past 72 Hours 12/11/18 20:10 Sputum, Expectorated/Coughed Gram Stain - Final 12/08/18 11:15 Blood Culture (Wb) - Other Blood Culture - Preliminary No growth in 48 hours. 12/08/18 10:10 Blood Culture (Wb) - Central Line Blood Culture - Preliminary No growth in 48 hours. Laboratory Results 12/11/18 20:50: Magnesium 2.1 Current Medications Acetaminophen (Tylenol) 650 mg PO Q6H PRN PRN PRN Reason: Mild Pain (1-3)/Temp > 100.7 F Last Admin: 12/11/18 18:05 Dose: 650 mg Documented by: Albuterol Sulfate (Ventolin Aerosols) 2.5 mg INHALATION Q2H PRN PRN PRN Reason: SOB/Wheezing Albuterol/Ipratropium (Duoneb) 3 ml INHALATION Q4H.RT [facility] Last Admin: 12/12/18 15:07 Dose: 3 ml Documented by: Baclofen (Lioresal) 5 mg PO TID PRN PRN PRN Reason: MUSCLE SPASM Benzonatate (Tessalon Perle) 200 mg PO TID [facility] Last Admin: 12/12/18 15:16 Dose: 200 mg Documented by: Divalproex Sodium (Depakote Er) 250 mg PO DAILY@0800 [facility] Last Admin: 12/12/18 08:02 Dose: 250 mg Documented by: Enoxaparin Sodium (Lovenox) 40 mg SC DAILY [facility] Last Admin: 12/12/18 10:20 Dose: 40 mg Documented by: Famotidine (Pepcid) 20 mg PO BID [facility] Last Admin: 12/12/18 09:04 Dose: 20 mg Documented by: Guaifenesin (Mucinex) 1,200 mg PO BID [facility] Last Admin: 12/12/18 09:04 Dose: 1,200 mg Documented by: Heparin Sodium (Beef Lung) () 50 units IV UD PRN PRN Reason: HEPARIN FLUSH Sodium Chloride () 250 mls @ 15 mls/hr IV .[id number] PRN PRN Reason: SALINE FLUSH Levetiracetam (Keppra Tablet) 500 mg PO BID [facility] Last Admin: 12/12/18 10:20 Dose: 500 mg Documented by: Levothyroxine Sodium (Synthroid) 100 mcg PO DAILY@0600 [facility] Last Admin: 12/12/18 05:23 Dose: 100 mcg Documented by: Nutritional Formula (Lactose Free) (Ensure Enlive) 120 ml PO 4X/DAY [facility] Last Admin: 12/12/18 17:38 Dose: 120 ml Documented by: Nystatin (Nystatin) 500,000 unit PO 4X/DAY [facility] Last Admin: 12/12/18 17:39 Dose: 500,000 unit Documented by: Ondansetron HCl (Zofran) 4 mg IV Q8H PRN PRN PRN Reason: NAUSEA/VOMITING Oxycodone HCl (Oxyir) 5 mg PO Q4H PRN PRN PRN Reason: Moderate pain (4-6/10) Last Admin: 12/12/18 09:04 Dose: 5 mg Documented by: Pantoprazole Sodium (Protonix) 40 mg PO DAILY [facility] Last Admin: 12/12/18 09:04 Dose: 40 mg Documented by: Pramipexole Dihydrochloride (Mirapex) 0.25 mg PO QHS [facility] Last Admin: 12/11/18 21:02 Dose: 0.25 mg Documented by: Prednisone () 40 mg PO DAILY@0800 [facility] Last Admin: 12/12/18 08:02 Dose: 40 mg Documented by: Promethazine HCl (Phenergan) 12.5 mg IV Q6H PRN PRN PRN Reason: Breakthrough Nausea/Vomiting Rizatriptan Benzoate (Maxalt) 10 mg PO UD PRN PRN Reason: migraine headache Senna/Docusate Sodium (Senokot-S, Rhea-Colace) 2 tablet PO BID PRN PRN Reason: Constipation Sodium Chloride () 10 ml IV UD PRN PRN Reason: VAD FLUSH Last Admin: 12/12/18 10:19 Dose: 10 ml Documented by: Throat Lozenges (Cepacol Sore Throat Lozenge) 1 lozenge MUCOUS MEM Q2H PRN PRN PRN Reason: Sore Throat/Cough Last Admin: 12/10/18 15:25 Dose: 1 lozenge Documented by: Medical Necessity - Tobacco Use Smoking Status: Current every day smoker Tobacco Use: Cigarettes Assessment/Plan All Active Problems (Last Reviewed 12/11/18 @ 10:29 by Sander Means MD) COPD exacerbation (Acute) Sepsis (Acute) Pneumonia (Acute) Encephalopathy acute (Acute) Leukocytosis (Acute) Acute delirium (Resolved) Adrenal insufficiency (Resolved) Breakthrough seizure (Resolved) Gram-negative pneumonia (Resolved) Hypotension (Resolved) MRSA pneumonia (Resolved) Respiratory failure with hypercapnia (Resolved) Septic shock (Resolved) Tobacco user (Resolved) 68 year old F with severe COPD/lung fibrosis, history of recurrent admission for acute respiratory failure admitted with progressive worsening of shortness of breath for 3 days along with dry cough, poor oral intake, labored breathing. 1. Acute on chronic hypoxic respiratory failure, secondary to probable acute COPD exacerbation/chronic interstitial lung disease/pulmonary fibrosis, was in ICU, improved, on nasal cannula oxygen, encourage use of incentive spirometer 2. Acute COPD exacerbation, improving, on breathing treatments, prednisone, 3. Acute metabolic encephalopathy secondary to #1 and #2, persistent, improving, will continue to monitor 4. Hypertension, controlled, off blood pressure medicine account of hypotension 5. Seizure disorder, on Keppra, valproic acid 6. Hypothyroidism, stable, on Synthroid 7. Anxiety/depression, on home Zoloft and Risperdal regimen. 8. RENNY on CPAP. 9. RLS, on Requip 10. DVT PPx- Lovenox SC Code Visit Inpatient E&M: 87442 Subs Hosp L2
[2018-12-12] MEDS: Acetaminophen 325 MG Tablet 650 MG PO (18:37)
[2018-12-12] MEDS: Pramipexole Di-HCl 0.25 MG Tablet PO (22:38)
--- NOTE | 2018-12-12 23:38 | CPS ---
PT HAS HER OWN CPAP,AND WOULD LIKE TO WEAR HER OWN UNIT TONIGHT.
[2018-12-13] VITALS (7 sets, daily range): BP systolic 110–128; BP diastolic 57–78; PULSE 58–80; RESP 16–18; TEMP 36.6–36.9; O2SAT 94–95
--- NOTE | 2018-12-13 01:21 | NURSING ---
pt wearing home cpap, resting comfortably
[2018-12-13] MEDS: 0.9% NaCl VAD Flush 10 ML IV ×5 (04:45→05:05)
[2018-12-13 05:46] LABS: Valproic Acid (Depakene) Level 18 ug/mL (50-100)
[2018-12-13] MEDS: Levothyroxine 100 MCG Tablet PO (05:51)
[2018-12-13] MEDS: Benzonatate 100 MG Capsule 200 MG PO ×2 (05:51→14:57)
[2018-12-13] MEDS: Pantoprazole Sodium 40 MG Tablet PO (08:19)
[2018-12-13] MEDS: Famotidine 20 MG Tablet PO (08:20)
[2018-12-13] MEDS: Divalproex (ER) 250 MG Tablet PO (08:20)
[2018-12-13] MEDS: Enoxaparin 40 MG/0.4 ML Syringe SC (08:20)
[2018-12-13] MEDS: predniSONE 20 MG Tablet 40 MG PO (08:20)
[2018-12-13] MEDS: levETIRAcetam 500 MG Tablet PO (08:20)
[2018-12-13] MEDS: oxyCODONE 5 MG Tablet PO ×2 (08:21→14:56)
[2018-12-13] MEDS: NYSTATIN 500,000 UNIT/5 ML UDC 500000 UNIT PO ×2 (08:21→14:57)
[2018-12-13] MEDS: guaiFENesin 1,200 MG Tablet 1200 MG PO (08:21)
--- NOTE | 2018-12-13 08:38 | PCM.PN.PUL ---
Patient Problems: Active and Suspected Problems (Last Reviewed 12/11/18 @ 10:29 by Sander Means MD) COPD exacerbation (Acute) Subjective: No acute events were reported overnight. Patient woke up to voice immediately and was able to answer some questions. Patient states that she does not believe her cochlear implant is working appropriately. Patient did report generalized body aches, but was unable to localize or describe any other symptoms. No nausea is been reported. Patient does not report any dyspnea or productive cough. - Physical Exam General: Alert, Cooperative, No apparent distress, - - No conversational dyspnea noted. HEENT: Atraumatic, PERRLA, EOMI, Normocephalic, - - Cochlear implant in place, but patient appeared to have difficulty hearing Oral: Moist Mucosa, No Gingival or Mucosal Lesions/ Ulcerations Neck: Supple, No JVD, No Nodes, Trachea Midline Lungs: No rhonchi, Diminished, Rales, Wheezes - Sporadic at end exhalation Cardiovascular: Regular rate, Regular Rhythm, Normal S1, Normal S2, No murmurs, No rub noted, No Gallop Abdomen: Bowel Sounds Present, Soft, Non Tender, Non-Distended Extremities: No cyanosis, Capillary Refill Less than 3 Seconds, Clubbing, Edema Skin: No rashes, No breakdown Musculoskeletal: No Tenderness to Palpation of Joints or Extremities Lymphatic: No Cervical, Supraclavicular, or Inguinal Adenopathy Neurological: Cranial nerves II-XII grossly intact, Neuro grossly intact Psych/Mental Status: Flat Affect Vital Signs Temp Pulse Resp BP Pulse Ox 36.7 C 73 16 128/68 H 94 12/13/18 05:53 12/13/18 07:30 12/13/18 05:53 12/13/18 05:53 12/13/18 05:53 Oxygen Flow Rate (L/min) [At 0 REST on Room Air] Oxygen Flow Rate (L/min) 2 Oxygen Delivery Method Room Air Weight: 58.1 kg Body Mass Index (BMI) 20.0 Finger Stick Blood Glucose 113 Intake and Output for Last 24 Hours 12/11/18 12/12/18 12/13/18 23:59 23:59 23:59 Intake Total 1373 / 1373 1176 / 1176 50 / 50 Output Total 3600 / 3600 1900 / 1900 300 / 300 Balance -2227 / -2227 -724 / -724 -250 / -250 Microbiology Past 72 Hours 12/11/18 20:10 Gram Stain - Final Sputum, Expectorated/Coughed 12/08/18 11:15 Blood Culture - Preliminary Blood Culture (Wb) - Other No growth in 48 hours. 12/08/18 10:10 Blood Culture - Preliminary Blood Culture (Wb) - Central Line No growth in 48 hours. Laboratory Tests Past 24 Hrs 12/13/18 12/13/18 12/13/18 05:00 05:00 05:00 Valproic Acid 18 L Levetiracetam Pending Miscellaneous Test Cancelled Medical Necessity - Tobacco Use Smoking Status: Current every day smoker Tobacco Use: Cigarettes Assessment/Plan All Active Problems (Last Reviewed 12/11/18 @ 10:29 by Sander Means MD) COPD exacerbation (Acute) Sepsis (Acute) Pneumonia (Acute) Encephalopathy acute (Acute) Leukocytosis (Acute) Acute delirium (Resolved) Adrenal insufficiency (Resolved) Breakthrough seizure (Resolved) Gram-negative pneumonia (Resolved) Hypotension (Resolved) MRSA pneumonia (Resolved) Respiratory failure with hypercapnia (Resolved) Septic shock (Resolved) Tobacco user (Resolved) RECOMMENDATIONS: 1. Continue antibiotics and bronchodilators. 2. Continue PAP therapy with naps and nightly. 3. Outpatient pulmonary follow-up 4. Wean prednisone over the next 12 to 14 days 5. Perform walking oximetry study prior to consideration for discharge from the hospital. 6. Okay to discharge from a pulmonary perspective IMPRESSIONS: 1. Acute on chronic hypoxemic respiratory failure Patient has been lost to follow-up as an outpatient. Unclear patient has been compliant with her maintenance inhalers. Patient does have severe COPD and fibrotic changes with upper lobe bronchiectasis. Patient should be placed on BiPAP therapy overnight. Continue with steroids and antibiotics. Patient appears to have significant delirium at this time, which may be exacerbated by lack of cochlear implant placement and steroid therapy. 2. Severe obstructive lung disease/interstitial lung disease/continued tobacco dependency Patient much more appropriate at this time. Patient unable to recognize me despite seeing her multiple times in the past. Patient has requested to be aggressive in the past, but has been declining over several years. Oxygenation appears to be at baseline at this time. Patient's was not at the bedside for further discussion. 3. Obstructive sleep apnea Continue nocturnal Pap therapy. 4. Hypertension/unspecified seizure disorder/hypothyroidism/anxiety/depression Complicates care, management, recovery and prognosis. Continue home medications as indicated. Physical therapy to work with the patient. Code Visit Inpatient E&M: 07059 Subs Hosp L2
[2018-12-13] MEDS: Ipratropium/Albuterol Sulfate 3 ML AMPUL.NEB INHALATION ×2 (10:47→14:35)
--- NOTE | 2018-12-13 13:59 | PCM.TXEXTCAR ---
- Diet 12/08/18 15:02 Diet: Regular Diet Food consistency:: Regular Liquid Consistency:: Regular/Thin - Routine Orders/Code Status Keep PO Greater than or Equal to (%): 94 - encourage use of incentive spirometer Routine Lab Work: CBC - within 3 days, BMP - within 3 days, - - Keppra and valproic acid levels in 1 week - Wound(s) L ramirez Wound Type: Abrasion - Therapies Weight Bearing: Weight bearing as tolerated Physical Therapy: Eval and Treat Occupational Therapy: Eval and Treat Speech Therapy: Eval and Treat - Allergies/Procedures Done in Hospital Allergies/Adverse Reactions: Allergies Sulfa (Sulfonamide Antibiotics) Adverse Reaction (Intermediate, Verified 12/08/18 10:27) Other - Messes with blood counts prochlorperazine edisylate [From Compazine] Adverse Reaction (Mild, Verified 12/08/18 10:27) Other - Restless legs prochlorperazine maleate [From Compazine] Adverse Reaction (Mild, Verified 12/08/18 10:27) Other - Restless legs Procedures: None - Type of Care/Length of Stay Estimated LOS: Convalescent Care Less Than 30 days Type of Care Needed: Skilled Rehab Potential: Fair Prognosis: Fair - Additional Orders/Day of Discharge Day of Discharge: 12/13/18 - Dietary and Speech Recommendations Dietitian Recommendations/Changes: Continue regular diet. Will add Ensure Enlive 120 ml PO 4x day on medpass. - Follow Up Care Primary Care Physician: Vin Baca DO [Primary Care Provider] - Please follow up with your Primary Care Physician in: within 1-2 weeks of discharge from SNF Please Follow Up With: Gerry Diallo MD When: within 2 weeks
--- NOTE | 2018-12-13 14:16 | PCM.DC.SUM ---
Discharge Date and Diagnosis Date of Admission: 12/08/18 Date of Discharge: 12/13/18 - Primary Discharge Diagnosis Active and Suspected Problems (Last Reviewed 12/11/18 @ 10:29 by Sander Means MD) Chronic hypoxic respiratory failure COPD exacerbation (Acute) Acute metabolic encephalopathy Sepsis secondary to CAP, present on admission - Secondary Discharge Diagnosis Chronic Problems (Last Reviewed 12/11/18 @ 10:29 by Sander Means MD) Acute and chronic respiratory failure with hypoxia (Chronic) Nocturnal hypoxia (Chronic) On CPAP and O2 at night PRES (posterior reversible encephalopathy syndrome) (Chronic) Medication overuse headache (Chronic) Anxiety and depression (Chronic) Tobacco abuse (Chronic) RENNY (obstructive sleep apnea) (Chronic) Mild diastolic dysfunction (Chronic) Depression (Chronic) Restless leg (Chronic) HTN (hypertension) (Chronic) Presbycusis of both ears (Chronic) COPD (chronic obstructive pulmonary disease) (Chronic) Hypothyroidism (Chronic) Pulmonary fibrosis (Chronic) Hospital Course and Treatment Imaging Results: Clinical Impression(s) from Imaging Studies Chest X-Ray 12/08/18 09:45 IMPRESSION: 1. Shallow inspiratory effort limiting evaluation of the lung bases. Bibasilar consolidation/small effusions cannot be entirely excluded. 2. Chronic interstitial changes plus or minus superimposed foci of pneumonitis. at 1232 Reported and signed by: Josh Serrato MD Electronically Signed: Josh Serrato MD at 12:31 EDT Tel , Service support , Chest CTA 12/08/18 15:18 IMPRESSION: 1. No acute pulmonary embolus. 2. Moderately advanced pulmonary emphysema and interval worsening of chronic interstitial lung disease. 3. Scattered patchy alveolar densities within the periphery of bilateral lower lobes and lingula suspicious for pneumonitis. 4. Mild bilateral hilar lymphadenopathy with interval worsening, these are likely reactive in nature. A few scattered borderline enlarged mediastinal lymph nodes. Individualized dose optimization techniques were used for this CT. at 1701 Reported and signed by: Josh Serrato MD Electronically Signed: Josh Serrato MD at 17:00 EDT Tel , Service support , Chest X-Ray 12/10/18 08:37 IMPRESSION: Increased interstitial markings particularly on the left Electronically Signed: Xavier Ny, at 11:33 EDT Tel , Service support , Brain CT 12/10/18 08:43 IMPRESSION: No acute insult Old infarction right parietal region. Mastoidectomy with a hearing aid device and electrode unchanged since the previous exam. Electronically Signed: Xavier Ny, at 10:12 EDT Tel , Service support , Pulmonology Neurology Operations: None Procedures: None Summary of Care Provided: 68 year old female with severe COPD/lung fibrosis, history of recurrent admission for acute respiratory failure admitted with progressive worsening of shortness of breath for 3 days along with dry cough, poor oral intake, labored breathing. Patient's blood pressure on admission 97/72, heart rate is 110, temperature 98.2, she was between 36 cycles per minute and was saturating 93% on 3 L. Her ABG showed pH of 7.35, bicarbonate 20.4, PO2 was 73, PCO2 was 40.8. Her management was as follows: 1. Acute on chronic hypoxic respiratory failure, secondary to probable acute COPD exacerbation/chronic interstitial lung disease/pulmonary fibrosis, Closed with pulmonology in the outpatient, initially managed in ICU with Bipap, transferred to PCU when she improved, continued on nasal canula oxygen. 2. Sepsis secondary to community-acquired pneumonia, started on antibiotics, completed in the hospital 3. Acute COPD exacerbation, managed on breathing treatments, prednisone. 3. Acute metabolic encephalopathy secondary to sepsis, hypoxia from the COPD exacerbation, polypharmacy. Patient's had reported that patient was supposed to be of her Parkinson's medication per her neurologist. Records were requested from the neurologist office but did not arrive prior to discharge. She improved in her mentation over the course of the hospital stay. 4. Hypertension, controlled, managed off blood pressure medicine on account of hypotension 5. Seizure disorder, on Keppra, valproic acid 6. Hypothyroidism, stable, on Synthroid 7. Anxiety/depression, on home Zoloft and Risperdal regimen. 8. RENNY on CPAP. 9. RLS, on Requip Subjective: On the day of discharge, patient was seen and examined. She is less confused. Denies any new complaints. On 2 L of oxygen. Objective: Physical exam: General: Alert, Oriented x3, Cooperative, No apparent distress, - - on 2L oxygen, appears frail HEENT: Atraumatic, PERRLA, EOMI, Normocephalic Neck: Supple, No JVD, Negative Carotid Bruits Lungs: Normal air movement, Diminished Cardiovascular: Regular rate, Regular Rhythm, Normal S1, Normal S2, No murmurs Abdomen: Bowel Sounds Present, Soft, Non Tender, Non-Distended, No Hepato-splenomegaly Extremities: No edema Skin: No rashes Musculoskeletal: No Tenderness to Palpation of Joints or Extremities Neurological: Cranial nerves II-XII grossly intact, Neuro grossly intact Psych/Mental Status: Normal Affect, Appropriate - Physical Exam Vital Signs Temp Pulse Resp BP Pulse Ox 98.0 F 75 18 128/68 H 94 12/13/18 05:53 12/13/18 10:47 12/13/18 10:47 12/13/18 05:53 12/13/18 10:47 Oxygen Flow Rate (L/min) [At 0 REST on Room Air] Oxygen Flow Rate (L/min) 1 Oxygen Delivery Method Nasal Cannula Weight: 58.1 kg Body Mass Index (BMI) 20.0 Finger Stick Blood Glucose 113 Intake and Output for Last 24 Hours 12/11/18 12/12/18 12/13/18 23:59 23:59 23:59 Intake Total 1373 / 1373 1176 / 1176 410 / 410 Output Total 3600 / 3600 1900 / 1900 300 / 300 Balance -2227 / -2227 -724 / -724 110 / 110 Microbiology Past 72 Hours 12/08/18 11:15 Blood Culture - Final Blood Culture (Wb) - Other No growth in 5 days. 12/08/18 10:10 Blood Culture - Final Blood Culture (Wb) - Central Line No growth in 5 days. 12/11/18 20:10 Gram Stain - Final Sputum, Expectorated/Coughed Respiratory Culture - Preliminary Staphylococcus aureus Laboratory Tests Past 24 Hrs 12/13/18 12/13/18 12/13/18 05:00 05:00 05:00 Valproic Acid 18 L Levetiracetam Pending Miscellaneous Test Cancelled Discharge Diet: Low fat/ Low Cholesterol, 2000 mg Sodium Diet Discharge Activity: Return to Normal Activity Home Medications: Medications to take at Discharge Pantoprazole Sodium [Protonix] 40 mg PO DAILY 08/23/16 Sertraline HCl [Zoloft] 50 mg PO DAILY 12/14/17 Ropinirole HCl [Requip] 0.5 mg PO QHS 09/27/18 Albuterol Aerosols [Ventolin Aerosols] 2.5 mg INHALATION Q2H PRN PRN vial.neb. 09/29/18 Baclofen 5 - 10 mg PO TID PRN PRN 12/08/18 Budesonide/Formoterol Fumarate [Symbicort 160-4.5 Mcg Inhaler] 2 puff IH BID 12/08/18 Ipratropium/Albuterol Sulfate [Iprat-Albut 0.5-3(2.5) mg/3 ml] 3 ml IH Q4H PRN PRN 12/08/18 Levetiracetam 500 mg PO BID 12/08/18 Rizatriptan Benzoate [Rizatriptan] 10 mg PO DAILY PRN PRN 12/08/18 Ensure Enlive 120 ml PO 4X/DAY #120 liquid 12/12/18 Guaifenesin [Mucinex] 1,200 mg PO BID #14 tab 12/12/18 Levothyroxine [Synthroid] 100 mcg PO DAILY@0600 #30 tab 12/12/18 Nystatin 500,000 unit PO 4X/DAY 7 Days #1 bottle 12/12/18 Prednisone See Taper PO DAILY #30 tab 12/12/18 Valproic Acid 500 mg PO DAILY #30 cap 12/13/18 Following Prescrptions Were Given to Patient: Ensure Enlive 120 ml PO 4X/DAY #120 liquid Transmission Status: Received by [id number] Guaifenesin [Mucinex] 1,200 mg PO BID #14 tab Transmission Status: Received by [id number] Nystatin 500,000 unit PO 4X/DAY 7 Days #1 bottle Transmission Status: Received by [id number] Prednisone See Taper PO DAILY #30 tab Transmission Status: Received by [id number] Levothyroxine [Synthroid] 100 mcg PO DAILY@0600 #30 tab Transmission Status: Received by [id number] Valproic Acid 500 mg PO DAILY #30 cap Primary Care Physician: Vin Baca DO [Primary Care Provider] - Please follow up with your Primary Care Physician in: within 1-2 weeks of discharge from SNF Please Follow Up With: Gerry Diallo MD When: within 2 weeks Disposition: Senior Living facility Minutes spent on discharge:: 55 Patient Condition:: Stable Medical Necessity - Tobacco Use Smoking Status: Current every day smoker Tobacco Use: Cigarettes Meaningful Use Info Meaningful Use Diagnoses (Choose all that apply): None applicable Code Visit Inpatient E&M: 17561 Disch Hosp
--- NOTE | 2018-12-13 14:25 | CASEMGMT ---
Patient is ready for d/c to [facility]. MARY faxed orders to [facility]. Completed convalescent on HENS. Per RN patient's wanted [facility] for transportation. MARY called [facility] and arranged for patient to get picked up at 4p via cot due to some continuing of confusion, new oxygen and not ambulatory. MARY notified Jesusita at [facility], patient, her , and RN. Plan: d/c to [facility] under skilled level of care on a convalescent stay. [facility] transported patient via cot due to continued confusion, new oxygen, and not ambulatory. Edith ANNE [employer]UST[employer] LOADER
[2018-12-17 14:00] LABS: KEPPRA (LEVETIRACETAM) 16.9 ug/mL (10.0-40.0)
== END 2018-12-13 16:03 | disposition skilled nursing facility (03) | DRG 871 ==
LOC: ED 10:00 → PCU 12-11 06:49 → ICU 12-11 11:28 → PCU 12-11 11:29
PROVIDERS: Admitting Provider Internal Medicine; Emergency Provider Emergency Medicine; Family Provider Family Medicine; PCP Family Medicine; Referring Provider Internal Medicine; Visit Provider Internal Medicine
DX: A41.9 Sepsis, unspecified organism (principal); J96.21 Acute and chronic respiratory failure with hypoxia; G93.41 Metabolic encephalopathy; J18.9 Pneumonia, unspecified organism; J44.1 Chronic obstructive pulmonary disease with (acute) exacerbation; F33.1 Major depressive disorder, recurrent, moderate; J44.0 Chronic obstructive pulmonary disease with (acute) lower respiratory infection; G40.909 Epilepsy, unspecified, not intractable, without status epilepticus; G47.33 Obstructive sleep apnea (adult) (pediatric); H91.13 Presbycusis, bilateral; J84.10 Pulmonary fibrosis, unspecified; G25.81 Restless legs syndrome; F41.9 Anxiety disorder, unspecified; I10 Essential (primary) hypertension; F17.210 Nicotine dependence, cigarettes, uncomplicated
CPT/HCPCS: 36415; 36591; 36600; 51702; 70450; 71045; 71275; 80048; 80053; 80076; 80164; 80177; 81001; 82140; 82607; 82746; 82803; 82962; 83605; 83690; 83735; 83880; 84100; 84439; 84443; 84484; 85025; 85610; 85730; 86140; 87040; 87070; 87077; 87186; 87205; 87449; 87641; 93005; 94002; 94003; 94640; 94667; 97110; 97163; 97167; 97530; 99285; 99406; J7030; Q9967; A4216

== ENCOUNTER → 2019-01-31 15:07 | Outpatient (CLI) | payer MEDICARE, OTHER, SELFPAY ==
--- NOTE | 2019-01-31 15:27 | RAD_ITS ---
STUDY: X-RAY CHEST REASON FOR EXAM: Female, 69 years old. Chest pain TECHNIQUE: PA and lateral views of the chest. COMPARISON: 12/10/2018 FINDINGS: Right internal jugular chest port which is unchanged. Poor inspiration with some bibasilar atelectasis. There is no demonstrated pleural abnormality. Normal size heart. Normal mediastinum and brandon. Normal visualized pulmonary arteries. Normal visualized aortic arch and descending thoracic aorta. Normal visualized thoracic spine. Normal visualized ribs, clavicles, and shoulders. There is no demonstrated abnormality of the visualized soft tissue structures of the upper abdomen. RAD/Chest PA and Lateral IMPRESSION: Poor inspiration with some bibasilar atelectasis. Electronically Signed: Seb Roche MD at 15:51 EDT Tel , Service support ,
== END ==
PROVIDERS: Family Provider Family Medicine; PCP Family Medicine; Referring Provider Nurse Practitioner Acute Care; Visit Provider Nurse Practitioner Acute Care
DX: J44.9 Chronic obstructive pulmonary disease, unspecified (principal); R07.9 Chest pain, unspecified
CPT/HCPCS: 71046

== ENCOUNTER → 2019-04-11 12:38 | Outpatient (CLI) | payer MEDICARE, OTHER, SELFPAY ==
--- NOTE | 2019-04-12 10:17 | PFT ---
INTRODUCTION: The patient is a 69-year-old female that presents for pulmonary function studies secondary to a diagnosis of COPD. Respiratory therapy reports good patient effort. Bronchodilators were used during testing. INTERPRETATION: Forced expiration spirometry demonstrates the presence of a severe large airways obstructive ventilatory defect. There was a significant response to aerosolized bronchodilators noted, based upon change in FEV1. Spirograms are of fair quality and plateau gradually indicating slow emptying of the lungs. Body plethysmography was performed and reveals a decrease TLC to 4.2 L, 74% of predicted, indicative of a mild restrictive ventilatory impairment. Diffusing capacity by single breath CO is reduced at 42% of predicted. IMPRESSION: Partially reversible severe mixed ventilatory defect with symmetric reduction in diffusing capacity.
== END ==
PROVIDERS: Family Provider Family Medicine; PCP Family Medicine; Referring Provider Internal Medicine Critical Care Medicine; Visit Provider Internal Medicine Critical Care Medicine
DX: J44.9 Chronic obstructive pulmonary disease, unspecified (principal)
CPT/HCPCS: 94060; 94726; 94729

== ENCOUNTER 2019-12-18 21:21 | Emergency (ER) | payer MEDICARE, OTHER, SELFPAY ==
[2019-04-25 06:31] VITALS: BMI 18.5
[2019-12-18 21:23] VITALS: BP 102/78; PULSE 73; RESP 18; TEMP 35.5; O2SAT 96; BMI 22.8
--- NOTE | 2019-12-18 21:29 | EKG12_ITS ---
Test Reason : UNRESPONSIVE Blood Pressure : / mmHG Vent. Rate : 061 BPM Atrial Rate : 061 BPM P-R Int : 156 ms QRS Dur : 086 ms QT Int : 458 ms P-R-T Axes : 067 037 066 degrees QTc Int : 461 ms Normal sinus rhythm Possible Inferior infarct , age undetermined Abnormal ECG Confirmed by SUZE MACIEL ([id number]), social media editor JW ALEXIS ([id number]) on 12/20/2019 11:45:44 AM Referred By: ERIS Confirmed By:SUZE MACIEL
--- NOTE | 2019-12-18 21:29 | CT_ITS ---
STUDY: CT BRAIN WITHOUT CONTRAST REASON FOR EXAM: Female, 69 years old. WENT TO BED AT 1930, UNABLE TO WAKE NOW, HX CVA, SEIZURE, POSTERIOR REVERSIBLE ENCEPHALOPATHY SYNDROME, HEARING AID DEVICE RADIATION DOSAGE (If Supplied By Facility): CTDIvol = ( 44.99 ) mGy, DLP = ( 812.98 ) mGycm TECHNIQUE: Transaxial CT imaging of the brain was performed without administration of intravenous contrast material. Individualized dose optimization techniques were used for this CT. COMPARISON: Prior study of 12/10/2018 FINDINGS: Normal soft tissue structures. Normal calvarium. There is mild cerebral atrophy with widening of the extra-axial spaces and ventricular dilatation. There is an old right parietal infarct. There are areas of decreased attenuation within the white matter tracts of the supratentorial brain, consistent with microvascular disease changes. Normal basal ganglia and thalami. Normal brainstem. Normal cerebellum. There is no intracranial hemorrhage. There are no findings of an acute ischemic infarction. Normal visualized paranasal sinuses. CT/Brain/Head without Contrast IMPRESSION: Chronic involutional changes of the brain. Old right parietal lobe infarct. There is no evidence of intracranial hemorrhage or acute infarct. Electronically Signed: Norris Ribeiro MD at 21:58 EDT , Service support ,
--- NOTE | 2019-12-18 21:32 | ED.DCSUM_ITS ---
- ER Visit Summary Date of Service: 12/18/19 Chief Complaint: Unresponsive per and squad History of Present Illness: The patient is a 69 F past medical history of pulmonary fibrosis, COPD not on O2, prior stroke, posterior reversible encephalopathy syndrome. Patient went to bed to go to sleep. was unable to wake her up and called the squad. States that this normally is not the case. She has not recently been ill. No falls or head injury. No fevers. Physical Examination: Older female initially completely unresponsive. Eyes closed. Does not respond to noxious stimuli. Squad said her blood sugar was over 100. Vital signs are stable afebrile. Pulse ox 96% on room air. No hypoxia. H EENT exam eyes closed. Patient spontaneously woke up during exam. Her eyes are open. Her pupils are 2 mm bilaterally. They are not fixed or dilated. Are equal symmetrical. Moist use membranes. No signs of trauma to her face or scalp. Neck nontender. No lymphadenopathy. Lungs clear to auscultation bilaterally. Heart regular rhythm rate about 70 no murmur. Chest were nontender. Abdomen soft nontender. Normal bowel sounds no peritoneal signs or signs of obstruction. Initially patient was moving her extremities then when she woke up she was moving all 4 extremities. There is no deformity there nontender. Neurologically her eyes are open. She is confused but starting to follow commands. There is been no seizure activity while in the emergency department or per the squad. Test Results: CT of the brain without contrast showed chronic changes. Old right parietal stroke. No bleed. Read by the radiologist and reviewed by me. EKG normal sinus rhythm rate of 61 with no acute signs of [place] or ischemia. CBC white count of 10. Hemoglobin 14. No bands. Chemistry sodium 132 otherwise unremarkable gap of 4. Glucose of 103. Normal creatinine. Liver enzymes normal. UA normal. Troponin normal. A code level was within the normal range at 54. Emergency Department Course and Treatment: Older female with extensive past medical history. With a period of unresponsiveness that is now come to. CAT scan, labs and x-rays are being obtained. Repeat exam at 11:22 PM the is in the room. He and I talked at length. He states she has been like this before in the past. Currently she is awake and alert. He is talking to her and she is responding. She does have a cochlear implant on the left. He feels comfortable taking her home. I went over all the labs with him and explained to him I could not find any specific cause for her decreased mental status and there is now since resolved and she is back to her baseline. They have a doctor's appointment to see a religion department chair Dr. Gerry Diallo tomorrow. Treatment Plan: Follow-up with your doctor. Return if worse. Disposition: Discharge Impression: Acute decreased mental status resolved of uncertain etiology History of COPD and pulmonary fibrosis History of posterior reversible encephalopathy syndrome History of prior stroke History of hypothyroidism This note was generated with [employer] dictation software. It may contain incorrect words, spelling, and punctuation that were not noted in review of the chart prior to signing ED Disposition - Plan for ED Patient: Referrals: Todd De Leon DO [Primary Care Provider] -
--- NOTE | 2019-12-18 21:38 | ED.RN ---
PATIENT INITIALLY ONLY RESPONSIVE TO PAINFUL STIMULI. WHILE DR. SCHULTE AT BEDSIDE ASSESSING PATIENT, PATIENT OPENS EYES SPONTANEOUSLY. PATIENT NOT RESPONDING VERBALLY.
[2019-12-18 21:51] LABS: Absolute Lymphocyte Count 1.68 X10^3/uL (0.83-4.51); Absolute Neutrophil Count 8.2 X10^3/uL (2.0-7.7); Basophil# 0.03 X10^3/uL; Basophil% 0.3 % (0-1); Eosinophil# 0.04 X10^3/uL; Eosinophils% 0.4 % (0-5); Hematocrit 42.7 % (37-47); Lymphocyte # 1.68 X10^3/ul (4.0); Lymphocyte % 15.9 % (19-41); Mean Corp Hgb Conc 32.8 g/dL (32-36); Mean Corpuscular Hgb 31.7 pg (27.0-32.0); Mean Corpuscular Volume 96.8 fL (81-99); Mean Platelet Vol. 9.5 fl (6.2-12.0); Monocyte# 0.55 X10^3/uL; Monocyte% 5.2 % (0-10); NRBC Flagged by Analyzer 0 % (0-5); Neutrophil # 8.17 X10^3/uL (2.7-7.7); Neutrophil % 77.5 % (47-70); Platelet Count 235 K/mm3 (150-450); RBC Distribution Width CV 14.7 % (11.6-14.6); Red Blood Count 4.41 M/mm3 (4.2-5.4); White Blood Count 10.5 K/mm3 (4.4-11.0)
[2019-12-18 21:56] VITALS: BP 138/98; PULSE 70; RESP 18; TEMP 35.4; O2SAT 98
[2019-12-18 21:56] LABS: Bacteria 0 SEEN /hpf (None Seen); Mucous, Urine 0 SEEN /hpf (<or=2+); White Blood Cells 0 SEEN /hpf (0-5)
[2019-12-18 21:57] LABS: Color, Urine Yellow (Yellow); Glucose, Dipstick Normal (Normal); Ketone-Dipstick Negative (Negative); Leukocyte Esterase-Dipstick Negative /ul (Negative); Nitrite-Dipstick Negative (Negative); Occult Blood-Urine 10 /ul (Negative); Protein-Dipstick Negative (Negative); Specific Gravity, Urine 1.005 (1.002-1.030); Urine Bilirubin Dipstick Negative (Negative); Urine Clarity Clear (Clear); Urine Urobilinogen Normal (Normal)
[2019-12-18] MEDS: 0.9% Normal Saline 1,000 ML 1000 ML IV (21:59)
[2019-12-18 22:05] LABS: Red Blood Cells-Urine 0-5 SEEN /hpf (0-5); Squamous Epithelial Cells - UA 0-5 SEEN /hpf (5-10)
[2019-12-18 22:11] LABS: ALB/GLOB Ratio 0.8 RATIO (0.9-2.4); AST(SGOT) 10 U/L (15-37); Alanine Aminotransfer ALT/SGPT 13 U/L (13-56); Albumin, Serum 3.3 g/dL (3.2-5.0); Alkaline Phosphatase 93 U/L (45-117); Anion Gap 4 (5-15); BUN 10 mg/dL (7-18); BUN/Creat Ratio 15.9 RATIO (10-20); Calcium,Total 8.6 mg/dL (8.5-10.1); Chloride 103 mmol/L (98-107); Creatinine, Serum 0.63 mg/dL (0.55-1.02); EST Glomerular Filtration Rate 100 mL/min (>60); Est Glom Filt Rate - Afr Amer 121 mL/min (>60); Estimated Creatinine Clearance 47.14 ml/min; Glucose 103 mg/dL (74-106); Potassium 4.2 mmol/L (3.5-5.1); Protein, Total 7.3 g/dL (6.4-8.2); Sodium Level 132 mmol/L (136-145)
[2019-12-18 22:28] VITALS: BP 149/78; PULSE 61; RESP 14; TEMP 35.5; O2SAT 100
[2019-12-18 22:31] VITALS: BP 149/78; PULSE 61; RESP 14; TEMP 35.5; O2SAT 100
[2019-12-18 22:32] LABS: Valproic Acid (Depakene) Level 54 ug/mL (50-100)
[2019-12-18 23:00] VITALS: BP 149/69; PULSE 59; RESP 14; O2SAT 100
--- NOTE | 2019-12-18 23:34 | ED.DEP ---
ED Disposition - Plan for ED Patient: Disposition: Home or Assisted Living Referrals: Todd De Leon, [Primary Care Provider] - 3-5 Days if not improving Additional Instructions: Follow-up with Dr. Gerry Diallo tomorrow. See your primary care physician if not improving. Her tests tonight including CAT scan and lab work were unremarkable.
[2019-12-18 23:59] VITALS: BP 124/77; PULSE 66; RESP 20; TEMP 36.4; O2SAT 100
--- NOTE | 2019-12-19 00:02 | ED.RN ---
spoke with to make she he feels comfortable with taking patient home. Pt able to say yes when asked if she wants to go home & also agreed. discussed discharge with pt and . son outside to drive, RN assisted pt into car.
--- NOTE | 2019-12-19 00:05 | ED.RN ---
reported that pt's cochlear implant may also need new battery
== END 2019-12-19 00:06 | disposition home or self-care (01) ==
PROVIDERS: Emergency Provider Emergency Medicine; PCP Family Medicine
DX: R41.82 Altered mental status, unspecified (principal); J44.9 Chronic obstructive pulmonary disease, unspecified; E03.9 Hypothyroidism, unspecified; F17.200 Nicotine dependence, unspecified, uncomplicated
CPT/HCPCS: 36591; 51702; 70450; 80053; 80164; 81001; 84484; 85025; 93005; 99285; J7030; A4216

== ENCOUNTER → 2020-02-13 09:40 | Outpatient (CLI) | payer MEDICARE, OTHER, SELFPAY ==
[2020-01-01 08:10] VITALS: BMI 18.5
[2020-02-13 15:57] LABS: Valproic Acid (Depakene) Level 55 ug/mL (50-100)
[2020-02-13 18:06] LABS: Xtra Tube EP Lab EXTRA TUBE
== END ==
PROVIDERS: PCP Family Medicine
DX: G62.9 Polyneuropathy, unspecified (principal); I67.83 Posterior reversible encephalopathy syndrome; R27.0 Ataxia, unspecified; R41.3 Other amnesia; R51 Headache; R56.9 Unspecified convulsions
CPT/HCPCS: 36591; 80164; 82140; A4216

== ENCOUNTER 2020-03-02 14:32 | Emergency (ER) | payer MEDICARE, OTHER, SELFPAY ==
[2020-01-01 08:10] VITALS: BMI 18.5
[2020-03-02 14:33] VITALS: BP 120/71; PULSE 104; RESP 18; TEMP 36.4; O2SAT 95; BMI 19.4
--- NOTE | 2020-03-02 15:29 | RAD_ITS ---
STUDY: X-RAY CHEST REASON FOR EXAM: Female, 70 years old. weakness, migraines ; hx of COPD TECHNIQUE: Frontal view of the chest COMPARISON: January 31 2019 FINDINGS: Infusion port is present in the right upper chest entering the jugular and terminating with its tip in the lower SVC. The lungs are clear and expanded. There is no demonstrated pleural abnormality. There are coarsened basilar interstitial markings. Normal size heart. Normal mediastinum and brandon. Normal visualized pulmonary arteries. Normal visualized aortic arch and descending thoracic aorta. Normal visualized thoracic spine. Normal visualized ribs, clavicles, and shoulders. There is no demonstrated abnormality of the visualized soft tissue structures of the upper abdomen. RAD/Chest 1 View (Portable) IMPRESSION: No acute findings or change since prior. Left basilar scarring. Electronically Signed: Raul Hallman, at 16:30 EDT Tel , Service support ,
--- NOTE | 2020-03-02 15:30 | ED.DCSUM_ITS ---
History of Present Illness Chief Complaint: Headache Informant: Patient Narrative: 70-year-old female presenting with migraine headache which is typical of her migraines. She states she has had this for 2 days. She complains of light sensitivity, sound sensitivity, mild nausea without vomiting. She is been able to eat and drink normally. She has no other symptoms such as lightheadedness, dizziness, unstable gait. She tried her rizatriptan prescribed by her neurologist but is not working. Denies fever, chills. - Past Medical History (1) Anxiety and depression Status: Chronic (2) COPD (chronic obstructive pulmonary disease) Status: Chronic Past Medical History - Allergies and Home Meds Allergies/Adverse Reactions: Allergies Sulfa (Sulfonamide Antibiotics) Adverse Reaction (Intermediate, Verified 03/02/20 15:03) Other - Messes with blood counts prochlorperazine edisylate [From Compazine] Adverse Reaction (Mild, Verified 03/02/20 15:03) Other - Restless legs prochlorperazine maleate [From Compazine] Adverse Reaction (Mild, Verified 03/02/20 15:03) Other - Restless legs Primary Care Physician: Todd De Leon DO [Primary Care Provider] - Prior records reviewed: Yes Past Medical History: - - Reviewed in problem list Surgical History: appendectomy, cholecystectomy, hysterectomy, total hip arthroplasty - Right, - - thyroidectomy and BL intraocular lens implants,cochear implant Smoking Status: Current every day smoker - Family History Maternal Family History: Family History (Last Reviewed 01/01/20 @ 13:53 by Faye Perez TERMINAL PRESS OPERATOR, TERMINAL PRESS OPERATOR-C) Mother Hypertension CVA (cerebral vascular accident) Father CVA (cerebral vascular accident) Hypertension Sister Colon cancer Grandfather Hypertension Heart disease Family History: Reports: Heart Disease, Stroke Paternal Family History: Family History (Last Reviewed 01/01/20 @ 13:53 by Faye Perez TERMINAL PRESS OPERATOR, TERMINAL PRESS OPERATOR-C) Mother Hypertension CVA (cerebral vascular accident) Father CVA (cerebral vascular accident) Hypertension Sister Colon cancer Grandfather Hypertension Heart disease Family History: Reports: Heart Disease, Stroke Sibling Family History: Family History (Last Reviewed 01/01/20 @ 13:53 by Faye Perez TERMINAL PRESS OPERATOR, TERMINAL PRESS OPERATOR-C) Mother Hypertension CVA (cerebral vascular accident) Father CVA (cerebral vascular accident) Hypertension Sister Colon cancer Grandfather Hypertension Heart disease Family History: Reports: - - sister with colon cancer Review of Systems General: Denies: Chills, Fever Eyes: Denies: Visual changes - bilaterally, Diplopia ENT: Denies: Rhinorrhea, Sore throat Cardiovascular: Denies: Chest pain, Palpitations Respiratory: Denies: Dyspnea, Cough, Dyspnea on exertion Gastrointestinal: Reports: Nausea. Denies: Abdominal pain, Vomiting, Diarrhea Genitourinary: Denies: Dysuria, Hematuria Musculoskeletal: Denies: Myalgias, Arthralgias Skin: Denies: Rash, Abscess Neurological: Reports: Headache. Denies: Parasthesia Psych: Denies: Depression, Anxiety Physical Exam Vital Signs/Narrative: Vital Signs Temp Pulse Resp BP Pulse Ox 03/02/20 14:33 97.6 F L 104 H 18 120/71 95 General: Well nourished, No Acute Distress Head: Normocephalic, Atraumatic Eyes: Perrl, EOMI ENT: Moist mucous membranes, No rhinorrhea Cardiovascular: Regular rate, Regular rhythm Respiratory: No distress, CTA bilaterally Skin: Normal color, No rash, Cyanosis Neurological: Alert, Oriented x3, Cranial nerves II-XII grossly intact Psychological: Normal affect, Normal Mood Diagnostic/Tx/Re-eval - Medical Decision Making Patient presents with migraine which is typical of her migraine headaches. She states her home medication is not working. On examination she has no neurologic deficits or red flag signs or symptoms. Her vital signs are stable and she is afebrile. She was treated with Reglan, Toradol, Benadryl and had improvement f rom 10 on the pain scale to 5. She feels at this time she can go home and manage. She was given return precautions. Her will assist her home. Impression: 1. Headache history of migraine ED Disposition - Plan for ED Patient: Disposition: Home or Assisted Living Instructions: ED, Migraine (Classical) Referrals: Todd De Leon DO [Primary Care Provider] -
[2020-03-02] MEDS: DiphenhydrAMINE 50 MG/ML Syringe 25 MG IV (15:57)
[2020-03-02] MEDS: Metoclopramide 10 MG/2 ML Vial IV (15:58)
[2020-03-02] MEDS: Ketorolac 15 MG/ML Vial IV (15:59)
[2020-03-02 16:05] VITALS: BP 120/74; BP 126/70; PULSE 88; PULSE 90
[2020-03-02 17:07] VITALS: BP 120/78; PULSE 89; RESP 16; O2SAT 99
== END 2020-03-02 17:33 | disposition home or self-care (01) ==
PROVIDERS: Emergency Provider Student in an Organized Health Care Education/Training Program; PCP Family Medicine
DX: R51 Headache (principal); F17.200 Nicotine dependence, unspecified, uncomplicated; J44.9 Chronic obstructive pulmonary disease, unspecified; F41.9 Anxiety disorder, unspecified
CPT/HCPCS: 36591; 71045; 96374; 96375; 99284; J7030; A4216

== ENCOUNTER → 2020-03-20 13:11 | Outpatient (CLI) | payer MEDICARE, OTHER, SELFPAY ==
[2020-03-02 14:33] VITALS: BMI 19.4
--- NOTE | 2020-03-20 15:11 | SP.MBSS_ITS ---
Modified Barium Swallow - Patient Information Study Date: 03/20/20 Study Time: 13:00 Direct Billable Minutes: 120 Total Minutes procedure & reportin Diagnosis: dysphagia, unspecified (R13.10) Referring Physician: Todd De Leon Reason for Referral: Patient had reported feeling of food/drink getting stuck. Medical History: The patient is a 68 year old F with multiple comorbidities including hx of CVA, respiratory failure with hypoxia, COPD, Nocturnal hypoxia, posterior reversible encephalopathy syndrome, Medication overuse headache, Sepsis, Pneumonia, Anxiety and depression, Tobacco abuse, Leukocytosis, RENNY (obstructive sleep apnea), Mild diastolic dysfunction, Depression, Restless leg, HTN, Presbycusis of both ears, hypothyroidism, and Pulmonary fibrosis. The patient has had speech therapy in the past following CVA several years ago. Dentition: WNL Respiratory Status: Oxygenating on Room Air - Study Findings Consistencies: Thin Liquid, [place] Thick Liquid, Honey Thick Liquid, Pudding, Cookie - Penetration-Aspiration Scale Penetration-Aspiration Scale: OBJECTIVE ASSESSMENT OF SWALLOW FUNCTION (QUANTITATIVE ? PER TRIAL): PENETRATION / ASPIRATION SCALE (UGALDE): 1 = does not enter airway 2 = enters airway/above vocal folds/ejected 3 = enters airway/above vocal folds/not ejected 4 = enters airway/contacts vocal folds/ejected 5 = enters airway/contacts vocal folds/not ejected 6 = enters airway/below vocal folds/ejected 7 = enters airway/below vocal folds/not ejected despite effort 8 = enters airway/below vocal folds/no effort - Penetration-Aspiration Scale Score Thin Liquid via teaspoon Result: 1= does not enter airway Thin Liquid via teaspoon Trial 2 Result: 1= does not enter airway Thin Liquid via small single sip from cup Result: 2= enter airway/above vocal folds/ejected Thin Liquid via large single sip from cup Result: 5= enters airways/contacts vocal folds/not ejected Thin Liquid via sequential sips from cup Result: 6= enters airway/below vocal folds/ejected Thin Liquid via small single sip from cup Chin tuck Result: 8= enters airway/below vocal folds/no effort Comment: Chin tuck worsened tolerance of thin liquids. Trace but silent aspiration present. [place] Thick Liquid via small single sip from cup Result: 3= enters airways/above vocal folds/not ejected Honey Thick Liquid via small single sip from cup Result: 2= enter airway/above vocal folds/ejected Honey Thick Liquid via small single sip from cup Trial 2 Result: 1= does not enter airway Pudding Result: 1= does not enter airway Cookie Result: 1= does not enter airway Thin Liquid via sequential sips from straw Result: 3= enters airways/above vocal folds/not ejected [place] Thick Liquid via small single sip from cup Chin tuck Result: 8= enters airway/below vocal folds/no effort [place] Thick Liquid via small single sip from cup Trial 2 Result: 5= enters airways/contacts vocal folds/not ejected Honey Thick Liquid via small single sip from cup Trial 3 Result: 3= enters airways/above vocal folds/not ejected - Oral Phase Labial Seal: No Labial Escape Tongue Control During Bolus Hold: Posterior escape of less than half of bolus Bolus Preparation/Mastication: Slow prolonged chewing/mashing with complete recollection Bolus Transport/Lingual Motion: Brisk tongue motion Oral Residue: Residue collection on oral structures - Pharyngeal Phase Initiation of Pharyngeal Swallow: Bolus head in pyriforms Soft Palate Elevation: No bolus between soft palate and pharyngeal wall Laryngeal Elevation: Partial superior movement thyroid cart/partial apprx aryt- epig petiole Anterior Hyoid Excursion: Partial anterior movement Epiglottic Movement: Partial inversion Laryngeal Vestibule Closure at Height of Swallow: Incomplete; narrow column of air/contrast in laryngeal vestibule Pharyngeal Stripping Wave: Present - complete Pharyngoesophageal Segment Opening: Parital distension and partial duration; parital obstruction of flow Tongue Base Retraction: Narrow column of contrast between tongue base & post. pharyngeal wall Pharyngeal Residue: Collection of residue within or on pharyngeal structures - Treatment Strategies Effects of treatment strategies attemped:: Chin Tuck not effective - Diagnosis/Impression Diagnosis: moderate oropharyngeal dysphagia (R13.12) Impression: The patient trialed thin liquids via teaspoon, cup (large and smaller single sips), and sequential sips from cup and straw. Patient tolerated smaller quantities of thin liquids such as when trialing via teaspoon with no aspiration found. However, the patient was found to have penetration to the vocal cords without ejection and eventually silent aspiration when trialing thin liquids via cup with chin tuck. The patient had inconsistent tolerance of nectar thick liquids and honey thick liquids ranging from no penetration/aspiration to penetration without ejection. Swallow function worsened with use of chin tuck posture with each trial attempted. The patient demonstrated adequate tolerance of pudding and cookie trials although slow mastication present. With all trials, the patient had pharyngeal residue resting in the valleculae and pyriform sinuses. It is recommended patient follow a thin liquid/mechanical soft texture (minced/moist) diet with the following recommended aspiration precautions in place: distant supervised meals, liquids via teaspoon sips, no straws, upright during PO intake and 30-60 minutes after, and slow rate of intake. The patient is encouraged to seek skilled speech therapy intervention for pharyngeal strengthening to reduce risk of aspiration. - Recommendations Diet: Mechanical Soft Textures, Thin Liquids Compensatory Strategies: Small Bites, Small Sips, No Straws, Liquid by Teaspoon Only, Slow Rate, Sitting upright, Remain sitting upright for 30 minutes after PO intake Supervision: Distant Supervision Recommend Repeat Modified Barium Swallow: Yes Comment: Repeat MBS study recommended following skilled speech therapy for pharyngeal strengthening if/when recommended by patients clinical speech-language pathologist. Need for Skilled Speech Therapy Services: Yes Education Completed: 1. Described result of evaluation., 2. Pt understands evaluation & agrees with goals and treatment plan. - Status Active ST Patient: Active - Contact Information [facility]:: Breana Reid MA, CCC-INDUSTRIAL ENGINEERING DIRECTOR [email or web address] [phone]
--- NOTE | 2020-04-24 08:13 | ST.MBS ---
Modified Barium Swallow - Penetration-Aspiration Scale Penetration-Aspiration Scale: OBJECTIVE ASSESSMENT OF SWALLOW FUNCTION (QUANTITATIVE ? PER TRIAL): PENETRATION / ASPIRATION SCALE (UGALDE): 1 = does not enter airway 2 = enters airway/above vocal folds/ejected 3 = enters airway/above vocal folds/not ejected 4 = enters airway/contacts vocal folds/ejected 5 = enters airway/contacts vocal folds/not ejected 6 = enters airway/below vocal folds/ejected 7 = enters airway/below vocal folds/not ejected despite effort 8 = enters airway/below vocal folds/no effort VIDEOFLOROSCOPIC SCALE SCORE (UGALDE): Grade I = aspiration of material that has penetrated into the laryngeal vestibule, intact cough reflex Grade II = aspiration < 10 % of the bolus, intact cough reflex Grade III = aspiration of < 10 % of the bolus, reduced cough reflex or aspiration of > 10 % of the bolus, intact cough reflex Grade IV = aspiration of > 10 % of the bolus, reduced cough reflex - Penetration-Aspiration Scale Score Thin Liquid via large single sip from cup Supraglottic swallow Result: 1= does not enter airway Thin Liquid via teaspoon Result: 1= does not enter airway
== END ==
LOC: RAD 13:11
PROVIDERS: PCP Family Medicine; Referring Provider Family Medicine; Visit Provider Family Medicine
DX: R13.10 Dysphagia, unspecified (principal)
CPT/HCPCS: 74230; 92611

== ENCOUNTER → 2020-04-15 12:29 | Outpatient (CLI) | payer MEDICARE, OTHER, SELFPAY ==
[2020-01-01 08:10] VITALS: BMI 18.5
--- NOTE | 2020-04-15 15:32 | PFTCOMP_ITS ---
COMPLETE PULMONARY FUNCTION TEST INTERPRETATION Brief HPI: Patient is a 70 year old female, currently under the care of Faye Perez, who presents to [facility] for complete pulmonary function tests secondary to diagnosis of COPD. Respiratory therapist reports good effort and reproducible results. Interpretation: Forced expiration spirometry shows no large airways obstructive ventilatory defect with an FEV1 of 48% predicted. There is no significant bronchodilator response by strict ATS criteria. Spirograms are of good quality and plateau normally. The respiratory flow volume loop shows a normal pattern. Lung volumes by body plethysmography show a decreased total lung capacity at 3.56 L, 63% predicted. All other lung volumes are reduced symmetrically. Diffusion capacity by carbon monoxide is decreased at 32% predicted. The airway resistance is elevated. Compared to previous pulmonary function tests from 03/12/2019, there is been a significant reduction in FVC, TLC and DLCO by 18%, 15% and 26% respectively. Impression: Moderate restrictive ventilatory defect with a severe reduction in diffusion capacity and significant worsening compared to previous.
== END ==
PROVIDERS: PCP Family Medicine; Referring Provider Nurse Practitioner Acute Care; Visit Provider Nurse Practitioner Acute Care
DX: J44.9 Chronic obstructive pulmonary disease, unspecified (principal)
CPT/HCPCS: 94060; 94726; 94729

== ENCOUNTER 2020-04-28 02:01 | Observation (INO) | payer MEDICARE, OTHER, SELFPAY ==
[2020-04-28] VITALS (15 sets, daily range): BP systolic 127–180; BP diastolic 67–94; PULSE 61–98; RESP 18–20; TEMP 36.1–37.2; O2SAT 94–98; BMI 18.6; BMI 18.4; BMI 18.5
--- NOTE | 2020-04-28 02:18 | EKG12_ITS ---
Test Reason : CHEST PAIN Blood Pressure : / mmHG Vent. Rate : 065 BPM Atrial Rate : 065 BPM P-R Int : 144 ms QRS Dur : 080 ms QT Int : 448 ms P-R-T Axes : 069 040 072 degrees QTc Int : 465 ms Normal sinus rhythm Anterior infarct , age undetermined Abnormal ECG Confirmed by SUNIL YEUNG, MORTEZA ([id number]), video news editor JAIMIE GLASER ([id number]) on 04/28/2020 2:08:35 PM Referred By: MELECIO Confirmed By:MORTEZA BARBER MD
--- NOTE | 2020-04-28 02:18 | RAD_ITS ---
STUDY: X-RAY CHEST REASON FOR EXAM: Female, 70 years old. C/O SOB -- HX OF COPD -- TESTED COVID+ TECHNIQUE: Single AP portable view of the chest. COMPARISON: None. FINDINGS: There is a Mediport on the right side. There are interstitial fibrotic changes in the lung bases. There is no demonstrated pleural abnormality. Normal size heart. Normal mediastinum and brandon. Normal visualized pulmonary arteries. Normal visualized aortic arch and descending thoracic aorta. Normal visualized thoracic spine. There is degenerative osteoarthritis of the bilateral shoulders. There is no demonstrated abnormality of the visualized soft tissue structures of the upper abdomen. RAD/Chest 1 View (Portable) IMPRESSION: Degenerative changes, as described above. No demonstrated acute cardiopulmonary process. Electronically Signed: Kevin Blood, at 3:30 EST Tel , Service support ,
--- NOTE | 2020-04-28 02:19 | ED.RN ---
PT DAR [facility]ILLAL[facility] TELEPHONE NUMBER [phone].
--- NOTE | 2020-04-28 02:21 | ED.VISSUMM ---
- ER Visit Summary Date of Service: 04/28/20 Chief Complaint: Chest pain History of Present Illness: The patient is a 70 F presenting per EMS with chest pain and shortness of breath. Patient states that she was awakened from sleep with palpitations. She then began having 8/10 midsternal chest pressure which radiates to her neck. She states that the chest pain started to subside. Her is currently admitted to the hospital with Covid. She states she has a chronic cough that is no worse than usual. She woke up feeling short of breath. She also has a headache, history of migraines. She denies fever. She denies abdominal pain, vomiting, diarrhea. She tested positive for Covid in August. She has not been tested recently. Physical Examination: Vitals are stable. Patient is afebrile. Alert no acute distress. 95% on room air. HEENT exam is unremarkable. Neck is supple. Lungs are diminished bilaterally. Heart is regular rate and rhythm. Abdomen is soft nontender nondistended. Extremities are unremarkable. Skin is warm and dry. No focal neurologic deficit. Remainder of exam is unremarkable. Emergency Department Course and Treatment: Patient continues to complain of 8 out of 10 chest pressure. She was given aspirin, nitro. EKG is normal sinus rhythm rate of 65 with no acute ischemic changes. Following nitro, patient's headache worsened. She is given Reglan and Benadryl IV. CBC, chemistries unremarkable other than glucose 123, BUN 20. Troponin is negative. Chest xray shows no demonstrated acute cardiopulmonary process. D-dimer elevated at 0.58. Due to elevated D-dimer, CTA chest was obtained and shows mild chronic interstitial lung disease. Stable right lung nodules. No demonstrated pulmonary embolism or arterial dissection. On re-evaluation, her chest pain is resolved. My suspicion for Covid is low, due to her recently testing positive Covid, Covid test is negative. Discussed with the hospitalist for observation for her chest pain. Disposition: Observation Impression: Chest pain This note was generated with [employer] dictation software. It may contain incorrect words, spelling, and punctuation that were not noted in review of the chart prior to signing ED Disposition - Plan for ED Patient:
[2020-04-28] MEDS: Aspirin 81 MG TAB.CHEW 324 MG PO (02:30)
[2020-04-28] MEDS: Nitroglycerin SL (ED/IMG/CATH) 0.4 MG TABLET SUBLINGUAL ×3 (02:31→02:41)
[2020-04-28 02:35] LABS: Absolute Lymphocyte Count 1.65 X10^3/uL (0.83-4.51); Absolute Neutrophil Count 7.2 X10^3/uL (2.0-7.7); Basophil# 0.02 X10^3/uL; Basophil% 0.2 % (0-1); Eosinophil# 0.07 X10^3/uL; Eosinophils% 0.7 % (0-5); Hematocrit 42.3 % (37-47); Hemoglobin 13.7 g/dL (12.0-15.0); Lymphocyte # 1.65 X10^3/ul (4.0); Lymphocyte % 16.8 % (19-41); Mean Corp Hgb Conc 32.4 g/dL (32-36); Mean Corpuscular Hgb 33.2 pg (27.0-32.0); Mean Corpuscular Volume 102.4 fL (81-99); Mean Platelet Vol. 10.5 fl (6.2-12.0); Monocyte# 0.82 X10^3/uL; Monocyte% 8.3 % (0-10); NRBC Flagged by Analyzer 0 % (0-5); Neutrophil # 7.23 X10^3/uL (2.7-7.7); Neutrophil % 73.6 % (47-70); Platelet Count 190 K/mm3 (150-450); RBC Distribution Width CV 14.8 % (11.6-14.6); RBC Distribution Width SD 56.4 fl (35.1-43.9); Red Blood Count 4.13 M/mm3 (4.2-5.4); White Blood Count 9.8 K/mm3 (4.4-11.0)
--- NOTE | 2020-04-28 02:48 | ED.RN ---
CALLED AND UPDATED ON PATIENT CONDITION AT THIS TIME
[2020-04-28] MEDS: DiphenhydrAMINE 50 MG/ML Syringe 25 MG IV (02:52)
[2020-04-28] MEDS: Metoclopramide 10 MG/2 ML Vial 5 MG IV (02:54)
[2020-04-28 02:56] LABS: BUN 20 mg/dL (7-18); Creatinine, Serum 0.67 mg/dL (0.55-1.02); Glucose 123 mg/dL (74-106)
[2020-04-28 02:57] LABS: Anion Gap 5 (5-15); BUN/Creat Ratio 29.8 RATIO (10-20); Calcium,Total 8.8 mg/dL (8.5-10.1); Chloride 113 mmol/L (98-107); D-Dimer Quantitative (DVT/PE) 0.58 FEU/ug/m (0.27-0.49); EST Glomerular Filtration Rate 93 mL/min (>60); Est Glom Filt Rate - Afr Amer 112 mL/min (>60); Estimated Creatinine Clearance 47.26 ml/min; Potassium 3.5 mmol/L (3.5-5.1); Sodium Level 144 mmol/L (136-145)
--- NOTE | 2020-04-28 03:01 | HP.PCM_ITS ---
Problem List (1) Chest pain Status: Acute Qualifiers: Chest pain type: unspecified Qualified Code(s): R07.9 - Chest pain, unspecified (2) Anxiety and depression Status: Chronic (3) Tobacco abuse Status: Chronic (4) RENNY (obstructive sleep apnea) Status: Chronic (5) Restless leg Status: Chronic (6) HTN (hypertension) Status: Chronic Qualifiers: Hypertension type: essential hypertension Qualified Code(s): I10 - Essential (primary) hypertension (7) COPD (chronic obstructive pulmonary disease) Status: Chronic Qualifiers: COPD type: unspecified COPD Qualified Code(s): J44.9 - Chronic obstructive pulmonary disease, unspecified; J44.9 - Chronic obstructive pulmonary disease, unspecified; J44.9 - Chronic obstructive pulmonary disease, unspecified; J44.9 - Chronic obstructive pulmonary disease, unspecified (8) Hypothyroidism Status: Chronic Qualifiers: Hypothyroidism type: unspecified Qualified Code(s): E03.9 - Hypothyroidism, unspecified (9) Pulmonary fibrosis Status: Chronic History of Present Illness Date of Admission: 04/28/20 Chief Complaint: Chest pain The patient is a 70 y/o F w/ PMHx: Chronic COPD/pulmonary fibrosis with chronic hypoxic respiratory failure (2L NC HS), RENNY, Anxiety and Depression, Hypothyroidism, HTN, HLD, Tobacco use, RLS, Migraines, Seizure disorder who pre sents to the [facility] ED on 04/28/20 with history of onset of chest discomfort described as a pressure sensation awakening her from sleep with noted palpitations and dyspnea with discomfort primary in the midsternal region rated at 8 of 10 in severity with radiation to her neck with some improvement prior to ED presentation prompting eventual ED evaluation. Patient does note that she had a headache with her symptoms but it is similar to her chronic headaches. Patient notes that her chest discomfort/pressure is completely resolved and her headache is improving with recent interventions with onset following nitroglycerin administration. She does note that she has a chronic cough and is unchanged. She denies any recent fever, chills, nausea, vomiting, abdominal pain, loose stools. Patient of note was COVID positive in 08/2019 and her is currently admitted with COVID pneumonia. Work-up in the ED included T 97.6, heart rate 95, BP 140/94, respiratory rate 18, 95% on room air, CBC with WBC 9.8, hemoglobin 13.7, platelet 190 without market shift, D-dimer 0.58, BMP with chloride 113, BUN/creatinine 20/0.67, glucose 123, troponin less than 0.015, chest x-ray with no acute cardiopulmonary findings, CTPA pending upon evaluation of patient, EKG with sinus rhythm with no acute evidence of ischemia. In the ED patient administered nitroglycerin, Reglan, Benadryl, aspirin. Past Medical History Past Medical History (Chronic Problems): Chronic Problems (Last Reviewed 01/01/20 @ 13:53 by Faye Perez BOAT DOCK OPERATOR, BOAT DOCK OPERATOR-C) Acute and chronic respiratory failure with hypoxia (Chronic) Nocturnal hypoxia (Chronic) On CPAP and O2 at night PRES (posterior reversible encephalopathy syndrome) (Chronic) Medication overuse headache (Chronic) Anxiety and depression (Chronic) Tobacco abuse (Chronic) RENNY (obstructive sleep apnea) (Chronic) Mild diastolic dysfunction (Chronic) Depression (Chronic) Restless leg (Chronic) HTN (hypertension) (Chronic) Presbycusis of both ears (Chronic) COPD (chronic obstructive pulmonary disease) (Chronic) Hypothyroidism (Chronic) Pulmonary fibrosis (Chronic) Medical History: Medical History (Last Reviewed 01/01/20 @ 13:53 by Faye Perez BOAT DOCK OPERATOR, BOAT DOCK OPERATOR-C) Leukocytosis (Acute) D72.829 RENNY (obstructive sleep apnea) (Chronic) G47.33 Mild diastolic dysfunction (Chronic) I51.9 Depression (Chronic) F32.9 Restless leg (Chronic) HTN (hypertension) (Chronic) I10 Presbycusis of both ears (Chronic) H91.13 COPD (chronic obstructive pulmonary disease) (Chronic) J44.9 Hypothyroidism (Chronic) E03.9 Pulmonary fibrosis (Chronic) J84.10 COPD with acute exacerbation J44.1 Gallstones K80.20 Septic shock A41.9, R65.21 UTI (urinary tract infection) N39.0 Anxiety F41.9 Bronchitis J40 Carpal tunnel syndrome G56.00 Cataract H26.9 Chronic back pain M54.9, G89.29 Migraine G43.909 Osteopenia M85.80 Solitary pulmonary nodule R91.1 Stage 2 moderate COPD by GOLD classification J44.9 Tobacco abuse Z72.0 Acute delirium (Resolved) R41.0 Acute respiratory failure J96.00 Adrenal insufficiency (Resolved) E27.40 Hypersomnia G47.10 Hypotension (Resolved) I95.9 MRSA pneumonia (Resolved) J15.212 Respiratory failure with hypercapnia (Resolved) J96.92 Allergies Sulfa (Sulfonamide Antibiotics) Adverse Reaction (Intermediate, Verified 04/28/20 02:09) Other - Messes with blood counts prochlorperazine edisylate [From Compazine] Adverse Reaction (Mild, Verified 04/28/20 02:09) Other - Restless legs prochlorperazine maleate [From Compazine] Adverse Reaction (Mild, Verified 04/28/20 02:09) Other - Restless legs Home Medications: Ambulatory Orders Medication Instructions Recorded Sertraline HCl [Zoloft] 100 mg PO DAILY 12/14/17 Ropinirole HCl [Requip] 0.5 mg PO QHS 09/27/18 Albuterol Aerosols [Ventolin 2.5 mg INHALATION Q2H PRN PRN 09/29/18 Aerosols] vial.neb. Budesonide/Formoterol Fumarate 2 puff IH BID 12/08/18 [Symbicort 160-4.5 Mcg Inhaler] Ipratropium/Albuterol Sulfate 3 ml IH Q4H PRN PRN 12/08/18 [Iprat-Albut 0.5-3(2.5) mg/3 ml] Rizatriptan Benzoate [Rizatriptan] 10 mg PO DAILY PRN PRN 12/08/18 Ensure Enlive 120 ml PO 4X/DAY #120 liquid 12/12/18 Indomethacin 25 mg PO DAILY PRN 12/18/19 Levothyroxine [Synthroid] 75 mcg PO DAILY@0600 12/18/19 Baclofen [Lioresal] 15 mg PO BID PRN PRN 03/02/20 Divalproex Sodium [Depakote ER] 500 mg PO BID 03/02/20 Pantoprazole Sodium [Protonix] 40 mg PO DAILY 03/02/20 Cranberry Fruit Concentrate [Azo 250 mg PO DAILY 04/28/20 Cranberry] Doxepin HCl 3 mg PO QHS 04/28/20 Melatonin 10 mg PO QHS 04/28/20 Mirabegron [Myrbetriq] 25 mg PO DAILY 04/28/20 Multivitamin [Daily Multiple 1 ea PO DAILY 04/28/20 Vitamin] Nortriptyline HCl [Pamelor] 25 mg PO QHS 04/28/20 Surgical History: Surgical History (Last Reviewed 01/01/20 @ 13:53 by Faye Perez BOAT DOCK OPERATOR, BOAT DOCK OPERATOR-C) Cochlear implant in place Z96.21 Dr Andrade 2014 H/O adenoidectomy Z98.890, Z90.89 H/O: hysterectomy Z98.890, Z90.710 History of cataract surgery Z98.49 History of cholecystectomy Z98.890, Z90.49 History of lung biopsy Z98.890 Hx of appendectomy Z98.890, Z90.49 Hx of left knee surgery Z98.890 joint lipoma removal vocal nodules removed Surgical History: appendectomy, cholecystectomy, hysterectomy, total hip arthroplasty - Right, - - thyroidectomy and BL intraocular lens implants,cochear implant Psychiatric History: Anxiety, Depression, - - Suspected narcotic dependence. 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: No pertinent METAL FURNITURE POLISHER history Lives: Spouse/ Significant Other Smoking Status: Current every day smoker Tobacco Use: Cigarettes Alcohol: Occasional Drugs: None - *Family History Maternal Family History: Family History (Last Reviewed 01/01/20 @ 13:53 by Faye Perez BOAT DOCK OPERATOR, BOAT DOCK OPERATOR-C) Mother Hypertension CVA (cerebral vascular accident) Father CVA (cerebral vascular accident) Hypertension Sister Colon cancer Grandfather Hypertension Heart disease History Items: Heart Disease, Stroke Paternal Family History: Family History (Last Reviewed 01/01/20 @ 13:53 by Faye Perze BOAT DOCK OPERATOR, BOAT DOCK OPERATOR-C) Mother Hypertension CVA (cerebral vascular accident) Father CVA (cerebral vascular accident) Hypertension Sister Colon cancer Grandfather Hypertension Heart disease History Items: Heart Disease, Stroke Sibling Family History: Family History (Last Reviewed 01/01/20 @ 13:53 by Faye Perez BOAT DOCK OPERATOR, BOAT DOCK OPERATOR-C) Mother Hypertension CVA (cerebral vascular accident) Father CVA (cerebral vascular accident) Hypertension Sister Colon cancer Grandfather Hypertension Heart disease History Items: - - sister with colon cancer Review of Systems Constitutional: Reports: Fatigue. Denies: Anorexia, Chills, Fever, Malaise, Weakness, Weight Change HEENT: Reports: Head Aches. Denies: Sinus Congestion, Sinus Drainage Cardiovascular: Reports: Chest Pain, Chest Pressure. Denies: Chest Tightness, Light Headedness, Orthopnea, Palpitations, Syncope Respiratory: Reports: Shortness of Breath. Denies: Cough, Shortness of breath at rest, Shortness of breath upon exertion, Sputum production Gastrointestinal: Denies: Abdominal Pain, Nausea, Vomiting Genitourinary: Denies: Dysuria Musculoskeletal: Reports: Joint Pain. Denies: Joint Tenderness Skin: Denies: Rash, Wounds Neurological: Denies: Numbness, Tingling, Focal weakness Psychiatric: Reports: Anxiety, Depression. Denies: Homicidal Ideations, Suicidal Ideations Hematologic/ Lymphatic: Denies: Easy Bruising, Easy Bleeding VTE Information - Inpt Only VTE Present on Admission: No VTE Mechan Device Prophylaxis: SCD's VTE Pharm Prophylaxis ordered?: Yes Patient Problems: Active and Suspected Problems (Last Reviewed 01/01/20 @ 13:53 by Faye Perez BOAT DOCK OPERATOR, BOAT DOCK OPERATOR-C) Chest pain (Acute) Subjective: Patient seated upright in ED bed, notes resolution of prior chest pressure. Headache following nitroglycerin is improving. Objective: Physical Examination: General: awake, alert, oriented x 3 and cooperative, seated upright in the ED bed in no apparent distress, chest discomfort resolved. Skin: normal color, turgor, no icterus, cyanosis. HEENT: AT/NC, EOMI, PERRLA, MMM, no carotid bruits or JVD noted. Lungs: Diminished breath sounds, greater bases, crackles bases consistent with patient fibrotic disease history, no rales, ronchi or wheezing. Heart: Regular rate and rhythm; no gallop, rub audible. Abdomen: soft, NTTP, ND, normal BS, no HSM. Extremities: no cyanosis, clubbing, or edema. Neurological: patient awake, alert, oriented x 3; cognitive function intact; pupils equally reactive to light and accomodation; cranial nerves II-XII grossly normal, moving all 4 extremities, no focal deficits, strength mildly global decrease secondary to acute presentation. Psychiatric: affect appears fatigued otherwise normal, no acute evidence of depressive or anxiety feelings. - Physical Exam Vitals/I&O's: Vital Signs Temp Pulse Resp BP Pulse Ox 97.6 F L 95 18 140/94 H 95 04/28/20 02:55 04/28/20 02:55 04/28/20 02:55 04/28/20 02:55 04/28/20 02:55 Oxygen Delivery Method Room Air Weight: 122 lb 9.232 oz Body Mass Index (BMI) 18.6 Finger Stick Blood Glucose 102 Laboratory Results 04/28/20 02:21: COVID-19 ([facility]) Cancelled 04/28/20 02:24: WBC 9.8, RBC 4.13 L, Hgb 13.7, Hct 42.3, MCV 102.4 H, MCH 33.2 H , MCHC 32.4, RDW Std Deviation 56.4 H, RDW Coeff of Clement 14.8 H, Plt Count 190, MPV 10.5, Immature Gran % (Auto) 0.400, Neut % (Auto) 73.6 H, Lymph % (Auto) 16.8 L, [place] % (Auto) 8.3, Eos % (Auto) 0.7, Baso % (Auto) 0.2, Absolute Neuts (auto) 7.2, Absolute Lymphs (auto) 1.65, Nucleated RBC % 0 04/28/20 02:24: D-Dimer Quant (PE/DVT) 0.58 H* 04/28/20 02:24: Sodium 144, Potassium 3.5, Chloride 113 H, Carbon Dioxide 26.0, Anion Gap 5, BUN 20 H, Creatinine 0.67, Estim Creat Clear Calc 47.26, Est GFR (MDRD) Af Amer 112, Est GFR (MDRD) Non-Af 93, BUN/Creatinine Ratio 29.8 H, Glucose 123 H, Calcium 8.8, Troponin I < 0.015 04/28/20 02:30: COVID-19 ([facility]) Pending Current Medications Heparin Sodium (Beef Lung) (Heparin Pf Lock 10 Units/Ml 50 Units/5 Ml Syringe) 50 units IV UD PRN PRN Reason: R Port Heparin Flush Sodium Chloride (0.9% Saline Lock 10 Ml Syringe) 10 - 40 ml IV UD PRN PRN Reason: R Port Saline Flush Sodium Chloride (0.9 % Nacl (Sterile) Posiflush 10 Ml) 10 - 40 ml IV UD PRN PRN Reason: Port access or dressing change Assessment/Plan All Active Problems COPD exacerbation (Acute) Chest pain (Acute) Sepsis (Acute) Pneumonia (Acute) Encephalopathy acute (Acute) Leukocytosis (Acute) Acute delirium (Resolved) Adrenal insufficiency (Resolved) Breakthrough seizure (Resolved) Gram-negative pneumonia (Resolved) Hypotension (Resolved) MRSA pneumonia (Resolved) Respiratory failure with hypercapnia (Resolved) Septic shock (Resolved) Tobacco user (Resolved) The patient is a 70 y/o F w/ PMHx: Chronic COPD/pulmonary fibrosis with chronic hypoxic respiratory failure (2L NC HS), RENNY, Anxiety and Depression, Hypothyroidism, HTN, HLD, Tobacco use, RLS, Migraines, Seizure disorder who presents to the [facility] ED on 04/28/20 with history of onset of chest discomfort described as a pressure sensation awakening her from sleep with noted palpitations and dyspnea. 1. Chest Pain: EKG in ED sinus rhythm with no evidence of acute ischemia, CXR w/ no acute cardiopulmonary findings, initial trop less than 0.015. Will admit to PCU, given elevated d-dimer pending CTPA initiated per ED, will place on a monitored bed to assure no acute myocardial infarction with serial cardiac enzymes and EKGs. If CTPA without acute findings and no PE would plan to continue to repeat cardiac enzymes and EKGs and if they remain unremarkable will pursue a.m. cardiac stress testing. If EKGs or cardiac enzymes change or worsen would plan cardiology consultation and hold on stress testing. If CTPA with + PE would initiate anticoagulation with therapeutic lovenox, hold on stress testing, obtain ECHO. Magnesium level requested. FLP in AM. ASA, NG, morphine. 2. Migraines, chronic: Patient administered Reglan and Benadryl IV secondary to complaints of headache with underlying migraine history, will have as needed triptan per her home regimen if needed. 3. Chronic COPD/Pulmonary fibrosis with chronic hypoxic respiratory failure: Will maintain on oxygen with wean as tolerated to room air, continue ATC duonebs, PRN albuterol, HOB, IS parameters. 4. Seizure disorder: We will continue patient home Depakote regimen. 5. Anxiety and depression: We will continue patient home sertraline regimen. 6. Hypothyroidism: Continue home synthroid regimen. 7. GERD: We will maintain on home PPI. 8. RLS: We will continue patient home Requip regimen. 9. RENNY: CPAP nightly if amenable. 10. Chronic back pain: We will continue patient home as needed baclofen regimen. 11. Tobacco Abuse: Encouraged cessation, inpatient consultation per RT, NR if desired. 12. DVT prophylaxis: SCDs, Lovenox. 13. CODE status: Patient HCPOA is her and living will is currently in place. Discussed CODE status at length including difference between FULL code, DNR-CCA and DNR-CC status. Following discussions about the differences in these status, requested Full Code status. Advanced Care Planning Face to Face Time: 16 minutes.
--- NOTE | 2020-04-28 03:01 | CT_ITS ---
STUDY: CTA CHEST REASON FOR EXAM: Female, 70 years old. SOB, CP, WOKE UP WITH PALPITATIONS, HX SZ, STROKE, COPD, EMPHYSEMA RADIATION DOSAGE (If Supplied By Facility): CTDIvol = ( 6.69 ) mGy, DLP = ( 138.18 ) mGycm TECHNIQUE: The examination was performed with the intravenous administration of IV 75mL Isovue-370. Post-processing of the angiographic images was performed, with multiplanar reformation and 3D reconstruction. Individualized dose optimization techniques were used for this CT. COMPARISON: 12/08/2018 FINDINGS: Mediport is seen on the right side. Normal enhancement of the main pulmonary artery and right and left pulmonary arteries. Normal enhancement of the bilateral peripheral pulmonary arteries. There is no demonstrated pulmonary embolism. There is atherosclerotic calcification of the aortic arch with tortuosity. There is no demonstrated aortic dissection. Normal heart and pericardium. Normal mediastinum. Normal hilar regions. Normal visualized trachea and bronchi. The lungs are well expanded. Subpleural reticular opacities and bronchial wall thickening are noted in both lungs more prominent in the lingula in anterior segment of the right and left lung upper lobe suggesting mild chronic interstitial lung disease. Mild emphysematous changes also noted in both lungs. Multiple nodules are seen in the right middle lobe and in the right lower lobe and right upper lobe are unchanged since the risk of the largest measures 6 mm axial image #103 most likely represent benign lesions. Normal pleura. Normal chest wall structures. There are degenerative changes of thoracic spine. Normal visualized upper abdomen. CT/CTA Chest W/WO Contrast IMPRESSION: Mild chronic interstitial lung disease. Stable right lung nodules. No demonstrated pulmonary embolism or arterial dissection. Electronically Signed: Kevin Blood, at 4:19 EST Tel , Service support ,
--- NOTE | 2020-04-28 04:51 | ED.RN ---
CALLED ABD UPDATED ON ADMISSION
--- NOTE | 2020-04-28 05:20 | EKG12_ITS ---
Test Reason : CP ADMISSION Blood Pressure : / mmHG Vent. Rate : 063 BPM Atrial Rate : 063 BPM P-R Int : 138 ms QRS Dur : 076 ms QT Int : 458 ms P-R-T Axes : 069 047 081 degrees QTc Int : 468 ms Normal sinus rhythm Normal ECG When compared with ECG of 28-APR-2020 02:16, MANUAL COMPARISON REQUIRED, DATA IS UNCONFIRMED Confirmed by SUNIL YEUNG, MORTEZA ([id number]), magazine editor JW ALEXIS ([id number]) on 04/29/2020 11:13:26 AM Referred By: FIOR Confirmed By:MORTEZA BARBER MD
[2020-04-28 05:40] LABS: Cholesterol 150 mg/dL (200); High Density Lipoprotein 52 mg/dL; Magnesium 2.1 mg/dL (1.6-2.6); Triglycerides 157 mg/dL; Very Low Density Lipoprotein 31 mg/dL (5-40)
[2020-04-28] MEDS: Ipratropium/Albuterol Sulfate 3 ML AMPUL.NEB INHALATION (06:09)
[2020-04-28] MEDS: Aspirin E.C. 81 MG Tablet PO (06:42)
[2020-04-28] MEDS: 0.9% Normal Saline 1,000 ML 100 ML IV (06:42)
[2020-04-28] MEDS: 0.9% Saline Lock 10 ML Syringe IV ×2 (06:42→12:50)
[2020-04-28] MEDS: Levothyroxine 75 MCG Tablet PO (06:42)
--- NOTE | 2020-04-28 08:06 | PCM.PN.HOSP ---
Patient Problems: Active and Suspected Problems (Last Reviewed 01/01/20 @ 13:53 by Faye Perez SENIOR VICE PRESIDENT AND CHIEF INFORMATION OFFICER, SENIOR VICE PRESIDENT AND CHIEF INFORMATION OFFICER-C) Chest pain (Acute) Vitals/I&O's: Vital Signs Temp Pulse Resp BP Pulse Ox 98.1 F 69 20 H 136/67 H 94 04/28/20 05:30 04/28/20 06:50 04/28/20 06:20 04/28/20 05:30 04/28/20 06:20 Oxygen Delivery Method Room Air Weight: 55.1 kg Body Mass Index (BMI) 18.4 Finger Stick Blood Glucose 102 Intake and Output for Last 24 Hours 04/26/20 04/27/20 04/28/20 23:59 23:59 23:59 Intake Total 0 / 0 Output Total 0 / 0 Balance 0 / 0 Laboratory Results 04/28/20 02:21: COVID-19 ([facility]) Cancelled 04/28/20 02:24: WBC 9.8, RBC 4.13 L, Hgb 13.7, Hct 42.3, MCV 102.4 H, MCH 33.2 H, MCHC 32.4, RDW Std Deviation 56.4 H, RDW Coeff of Clement 14.8 H, Plt Count 190, MPV 10.5, Immature Gran % (Auto) 0.400, Neut % (Auto) 73.6 H, Lymph % (Auto) 16.8 L, [place] % (Auto) 8.3, Eos % (Auto) 0.7, Baso % (Auto) 0.2, Absolute Neuts (auto) 7.2, Absolute Lymphs (auto) 1.65, Nucleated RBC % 0 04/28/20 02:24: D-Dimer Quant (PE/DVT) 0.58 H* 04/28/20 02:24: Sodium 144, Potassium 3.5, Chloride 113 H, Carbon Dioxide 26.0, Anion Gap 5, BUN 20 H, Creatinine 0.67, Estim Creat Clear Calc 47.26, Est GFR (MDRD) Af Amer 112, Est GFR (MDRD) Non-Af 93, BUN/Creatinine Ratio 29.8 H, Glucose 123 H, Calcium 8.8, Troponin I < 0.015 04/28/20 02:24: Magnesium 2.1, Troponin I Cancelled, Triglycerides 157, Cholesterol 150, LDL Cholesterol 67, VLDL Cholesterol 31, HDL Cholesterol 52 11/09/20 02:30: COVID-19 ([facility]) Not Detected 04/28/20 05:45: Troponin I < 0.015 Current Medications Acetaminophen (Acetaminophen 325 Mg Tablet) 650 mg PO Q6H PRN PRN PRN Reason: Pain Score 1-10/Temp > 100.7 F Albuterol Sulfate (Albuterol 2.5 Mg/3 Ml Vial.Neb.) 2.5 mg INHALATION Q2H PRN PRN PRN Reason: dyspnea, wheezing Albuterol/Ipratropium (Ipratropium/Albuterol Sulfate 3 Ml Ampul.Neb) 3 ml INHALATION Q6HWA.RT [facility] Last Admin: 04/28/20 06:09 Dose: 3 ml Documented by: Aspirin (Aspirin E.C. 81 Mg Tablet) 81 mg PO DAILY@0800 [facility] Last Admin: 04/28/20 06:42 Dose: 81 mg Documented by: Baclofen (Baclofen 10 Mg Tablet) 15 mg PO BID PRN PRN PRN Reason: MUSCLE SPASM Divalproex Sodium (Divalproex (Er) 500 Mg Tablet) 500 mg PO BID [facility] Enoxaparin Sodium (Enoxaparin 40 Mg/0.4 Ml Syringe) 40 mg SC DAILY [facility] Guaifenesin (Guaifenesin 10 Ml Udc (200mg/10ml)) 20 ml PO Q4H PRN PRN PRN Reason: COUGH Heparin Sodium (Beef Lung) (Heparin Pf Lock 10 Units/Ml 50 Units/5 Ml Syringe) 50 units IV UD PRN PRN Reason: R Port Heparin Flush Hydralazine HCl (Hydralazine 20 Mg/Ml Vial) 10 mg IV Q4H PRN PRN PRN Reason: SBP > 160 Sodium Chloride () 1,000 mls @ 100 mls/hr IV .Q10H [facility] Last Admin: 04/28/20 06:42 Dose: 100 mls/hr Documented by: Indomethacin (Indomethacin 25 Mg Capsule) 25 mg PO DAILY PRN PRN PRN Reason: HEADACHE Influenza Virus Vaccine Quadrival (Influenza Vaccine (6mos+)/Pf 0.5 Ml Syringe) 0.5 ml IM .ONCE ONE Stop: 04/28/20 10:01 Levothyroxine Sodium (Levothyroxine 75 Mcg Tablet) 75 mcg PO DAILY@0600 [facility] Last Admin: 04/28/20 06:42 Dose: 75 mcg Documented by: Magnesium Hydroxide (Magnesium Hydroxide 30 Ml Udc) 30 ml PO DAILY PRN PRN PRN Reason: Constipation Melatonin (Melatonin 10 Mg Tablet) 10 mg PO QHS [facility] Mirabegron (Mirabegron 25 Mg Tab.Er.24h) 25 mg PO DAILY [facility] Morphine Sulfate (Morphine 2 Mg/Ml Syringe) 2 mg IV Q3H PRN PRN PRN Reason: Pain Score 6-10 Nitroglycerin (Nitroglycerin (Inpatient Use) 0.4 Mg Tab.Subl) 0.4 mg SUBLINGUAL Q5M PRN PRN Reason: CARDIAC/CHEST PAIN Non-Formulary Medication (Doxepin Hcl) 3 mg PO QHS [facility] Nortriptyline HCl (Nortriptyline 25 Mg Capsule) 25 mg PO QHS [facility] Nutritional Formula (Lactose Free) (Ensure Enlive 120 Ml Liquid) 120 ml PO 4X/DAY [facility] Ondansetron HCl (Ondansetron 4 Mg/2 Ml Vial) 4 mg IV Q8H PRN PRN PRN Reason: NAUSEA/VOMITING Oxycodone HCl (Oxycodone 5 Mg Tablet) 5 mg PO Q4H PRN PRN PRN Reason: Pain Score 4-5 Pantoprazole Sodium (Pantoprazole Sodium 40 Mg Tablet) 40 mg PO DAILY [facility] Pramipexole Dihydrochloride (Pramipexole Di-Hcl 0.25 Mg Tablet) 0.25 mg PO QHS [facility] Psyllium Hydrophilic Mucilloid (Psyllium 1 Packet) 1 packet PO DAILY PRN PRN PRN Reason: Constipation Rizatriptan Benzoate (Rizatriptan Benzoate 10 Mg Tablet) 10 mg PO DAILY PRN PRN PRN Reason: MIGRAINES Senna/Docusate Sodium (Senna/Docusate Sodium 1 Tablet) 2 tablet PO BID PRN PRN PRN Reason: Constipation Sertraline HCl (Sertraline 100 Mg Tablet) 100 mg PO DAILY [facility] Sodium Chloride (0.9% Saline Lock 10 Ml Syringe) 10 - 40 ml IV UD PRN PRN Reason: R Port Saline Flush Last Admin: 04/28/20 06:42 Dose: 10 ml Documented by: Sodium Chloride (0.9 % Nacl (Sterile) Posiflush 10 Ml) 10 - 40 ml IV UD PRN PRN Reason: Port access or dressing change Throat Lozenges (Benzocaine/Menthol 1 Lozenge) 1 lozenge MUCOUS MEM Q2H PRN PRN PRN Reason: SORE THROAT STROKE Vital Signs/Narrative: Vital Signs Temp Pulse Resp BP Pulse Ox 04/28/20 06:50 69 04/28/20 06:20 20 H 94 04/28/20 06:11 97 04/28/20 06:10 61 20 H 04/28/20 05:44 63 04/28/20 05:30 98.1 F 62 18 136/67 H 98 04/28/20 04:54 80 20 H 128/77 H 95 Medical Necessity - Tobacco Use Smoking Status: Current every day smoker Tobacco Use: Cigarettes Assessment/Plan All Active Problems COPD exacerbation (Acute) Chest pain (Acute) Sepsis (Acute) Pneumonia (Acute) Encephalopathy acute (Acute) Leukocytosis (Acute) Acute delirium (Resolved) Adrenal insufficiency (Resolved) Breakthrough seizure (Resolved) Gram-negative pneumonia (Resolved) Hypotension (Resolved) MRSA pneumonia (Resolved) Respiratory failure with hypercapnia (Resolved) Septic shock (Resolved) Tobacco user (Resolved) Inpatient E&M: 19423 Subs Hosp L2
--- NOTE | 2020-04-28 10:57 | STRESSREP ---
Stress Test Report Pharmacologic myocardial perfusion stress test. 70-year-old lady with a history of chest pain. Stress protocol: Resting EKG demonstrates normal sinus rhythm with a rate of 61 bpm normal intervals are noted resting blood pressure is 138/82 mmHg. 0.4 mg of regadenoson was infused per usual protocol followed by rapid venous saline flush injection continuous EKG monitoring was performed. The maximum heart rate attained was 86 bpm which was 56% of maximum predicted heart rate the maximum workload was 1 metabolic equivalent. At rest there were no ST or T wave changes noted to suggest abnormal flow reserve at peak infusion nonspecific ST-T wave changes were noted we did not denote any ischemia. No clinical angina was noted. The final blood pressure was 128/70 mmHg. Myocardial perfusion protocol. 11.1 mCi of technetium 99m sestamibi was injected at rest. 0.4 mg of regadenoson was infused per usual protocol. At peak infusion 32.2 mCi of technetium 99m sestamibi was injected stress images were obtained stress and rest images were reconstructed and compared in the short axis vertical long horizontal long axis gated images were also obtained P Perfusion SPECT analysis: Review of the stress images demonstrate normal uptake of tracer noted in all areas of the myocardium the resting images similar demonstrate normal uptake of tracer noted in all areas of the myocardium. No reversibility is noted. Gated SPECT analysis: The gated ejection fraction over 75 %. Conclusion: Normal pharmacologic myocardial perfusion stress test Preserved ejection fraction.
[2020-04-28] MEDS: Mirabegron 25 MG TAB.ER.24H PO (10:59)
[2020-04-28] MEDS: Divalproex (ER) 500 MG Tablet PO (10:59)
[2020-04-28] MEDS: Sertraline 100 MG Tablet PO (10:59)
[2020-04-28] MEDS: Pantoprazole Sodium 40 MG Tablet PO (11:00)
--- NOTE | 2020-04-28 12:47 | PCM.DC ---
- Discharge Diagnoses Current Active Problems: Current Active and Chronic Problems (Last Reviewed 01/01/20 @ 13:53 by Faye Perez DIRECTOR [facility]ITY [facility] NURSING, DIRECTOR [facility] NURSING-C) Chest pain (Acute) Anxiety and depression (Chronic) Tobacco abuse (Chronic) RENNY (obstructive sleep apnea) (Chronic) Restless leg (Chronic) HTN (hypertension) (Chronic) COPD (chronic obstructive pulmonary disease) (Chronic) Hypothyroidism (Chronic) Pulmonary fibrosis (Chronic) Reason(s) for Visit for Discharge Instructions: Chest pain You will use the following diet at home:: Regular Your food should be the consistency of: Regular Your liquids should be the consistency of: Regular/Thin Discharge Activity: Return to Normal Activity Additional Instructions: Continue on all your medications as prescribed. Continue to use your incentive spirometer. Follow-up with your primary care doctor within 2 weeks. Allergies/Adverse Reactions: Allergies Sulfa (Sulfonamide Antibiotics) Adverse Reaction (Intermediate, Verified 04/28/20 02:09) Other - Messes with blood counts prochlorperazine edisylate [From Compazine] Adverse Reaction (Mild, Verified 04/28/20 02:09) Other - Restless legs prochlorperazine maleate [From Compazine] Adverse Reaction (Mild, Verified 04/28/20 02:09) Other - Restless legs Medications to take at Discharge Sertraline HCl [Zoloft] 100 mg PO DAILY 12/14/17 Ropinirole HCl [Requip] 0.5 mg PO QHS 09/27/18 Albuterol Aerosols [Ventolin Aerosols] 2.5 mg INHALATION Q2H PRN PRN vial.neb. 09/29/18 Budesonide/Formoterol Fumarate [Symbicort 160-4.5 Mcg Inhaler] 2 puff IH BID 12/08/18 Ipratropium/Albuterol Sulfate [Iprat-Albut 0.5-3(2.5) mg/3 ml] 3 ml IH Q4H PRN PRN 12/08/18 Rizatriptan Benzoate [Rizatriptan] 10 mg PO DAILY PRN PRN 12/08/18 Ensure Enlive 120 ml PO 4X/DAY #120 liquid 12/12/18 Indomethacin 25 mg PO DAILY PRN 12/18/19 Levothyroxine [Synthroid] 75 mcg PO DAILY@0600 12/18/19 Baclofen [Lioresal] 15 mg PO BID PRN PRN 03/02/20 Divalproex Sodium [Depakote ER] 500 mg PO BID 03/02/20 Pantoprazole Sodium [Protonix] 40 mg PO DAILY 03/02/20 Acetaminophen [Tylenol Tablet] 650 mg PO Q6H PRN PRN tab 04/28/20 Aspirin E.C. [Ecotrin] 81 mg PO DAILY@0800 tab 04/28/20 Cranberry Fruit Concentrate [Azo Cranberry] 250 mg PO DAILY 04/28/20 Doxepin HCl 3 mg PO QHS 04/28/20 Melatonin 10 mg PO QHS 04/28/20 Mirabegron [Myrbetriq] 25 mg PO DAILY 04/28/20 Multivitamin [Daily Multiple Vitamin] 1 ea PO DAILY 04/28/20 Nortriptyline HCl [Pamelor] 25 mg PO QHS 04/28/20 Primary Care Physician: Todd De Leon DO [Primary Care Provider] - Please follow up with your Primary Care Physician in: within 2 weeks Test Results: Test results from this visit will be discussed in further detail at your follow-up appointment, if applicable. Proposed Discharge Date: 04/28/20
--- NOTE | 2020-04-28 14:21 | PHA.DC.MR ---
Pharmacy Service has performed discharge medication reconciliation for this patient. Medrec completed, as pt currently in isolation. Home Medications Sertraline HCl [Zoloft] 100 mg PO DAILY 12/14/17 Ropinirole HCl [Requip] 0.5 mg PO QHS 09/27/18 Albuterol Aerosols [Ventolin Aerosols] 2.5 mg INHALATION Q2H PRN PRN vial.neb. 09/29/18 Budesonide/Formoterol Fumarate [Symbicort 160-4.5 Mcg Inhaler] 2 puff IH BID 12/08/18 Ipratropium/Albuterol Sulfate [Iprat-Albut 0.5-3(2.5) mg/3 ml] 3 ml IH Q4H PRN PRN 12/08/18 Rizatriptan Benzoate [Rizatriptan] 10 mg PO DAILY PRN PRN 12/08/18 Ensure Enlive 120 ml PO 4X/DAY #120 liquid 12/12/18 Indomethacin 25 mg PO DAILY PRN 12/18/19 Levothyroxine [Synthroid] 75 mcg PO DAILY@0600 12/18/19 Baclofen [Lioresal] 15 mg PO BID PRN PRN 03/02/20 Divalproex Sodium [Depakote ER] 500 mg PO BID 03/02/20 Pantoprazole Sodium [Protonix] 40 mg PO DAILY 03/02/20 Acetaminophen [Tylenol Tablet] 650 mg PO Q6H PRN PRN tab 04/28/20 Aspirin E.C. [Ecotrin] 81 mg PO DAILY@0800 tab 04/28/20 Cranberry Fruit Concentrate [Azo Cranberry] 250 mg PO DAILY 04/28/20 Doxepin HCl 3 mg PO QHS 04/28/20 Melatonin 10 mg PO QHS 04/28/20 Mirabegron [Myrbetriq] 25 mg PO DAILY 04/28/20 Multivitamin [Daily Multiple Vitamin] 1 ea PO DAILY 04/28/20 Nortriptyline HCl [Pamelor] 25 mg PO QHS 04/28/20 The patient's discharge medication list was reviewed for discrepancies and discrepancies were resolved.
--- NOTE | 2020-04-28 14:30 | PCM.DC.SUM ---
Discharge Date and Diagnosis - Problem List Patient Problems: Active and Suspected Problems (Last Reviewed 01/01/20 @ 13:53 by Faye Perez CHAIR LIFT OPERATOR, CHAIR LIFT OPERATOR-C) Chest pain (Acute) Date of Admission: 04/28/20 Date of Discharge: 04/28/20 - Primary Discharge Diagnosis Acute Problems: Active Problems (Last Reviewed 01/01/20 @ 13:53 by Faye Perez CHAIR LIFT OPERATOR, CHAIR LIFT OPERATOR-C) Chest pain (Acute), acute coronary syndrome ruled out - Secondary Discharge Diagnosis Chronic Problems: Chronic Problems (Last Reviewed 01/01/20 @ 13:53 by Faye Perez NP, CHAIR LIFT OPERATOR-C) Acute and chronic respiratory failure with hypoxia (Chronic) Nocturnal hypoxia (Chronic) On CPAP and O2 at night PRES (posterior reversible encephalopathy syndrome) (Chronic) Medication overuse headache (Chronic) Anxiety and depression (Chronic) Tobacco abuse (Chronic) RENNY (obstructive sleep apnea) (Chronic) Mild diastolic dysfunction (Chronic) Depression (Chronic) Restless leg (Chronic) HTN (hypertension) (Chronic) Presbycusis of both ears (Chronic) COPD (chronic obstructive pulmonary disease) (Chronic) Hypothyroidism (Chronic) Pulmonary fibrosis (Chronic) Hospital Course and Treatment Imaging Results: Clinical Impression(s) from Imaging Studies Chest X-Ray 04/28/20 02:18 IMPRESSION: Degenerative changes, as described above. No demonstrated acute cardiopulmonary process. Electronically Signed: Kevin Blood, at 3:30 EST Tel , Service support , Chest CTA 04/28/20 03:01 IMPRESSION: Mild chronic interstitial lung disease. Stable right lung nodules. No demonstrated pulmonary embolism or arterial dissection. Electronically Signed: Kevin Blood, at 4:19 EST Tel , Service support , Operations: None Procedures: Stress test Summary of Care Provided: The patient is a 70 year old F with multiple comorbidities including chronic COPD with 2 L of home oxygen, hypertension, nicotine use disorder, who comes in with chest discomfort, described as pressure-like sensation that woke her up from sleep, radiated to her neck, associated with palpitations and dyspnea. Patient was recently tested positive for Covid. Her was currently on admission with Covid pneumonia. Patient had an initial chest x-ray that showed degenerative changes. CT of the chest was negative for acute PE. EKG showed no acute ST-T changes. Patient was admitted to the telemetry bed and monitored. Troponins were trended which were negative. No acute events overnight. She underwent a stress test that was also negative. Patient was discharged home to follow-up with her primary care doctor within 2 weeks. Patient Problems: Active and Suspected Problems (Last Reviewed 01/01/20 @ 13:53 by Faye Perez CHAIR LIFT OPERATOR, CHAIR LIFT OPERATOR-C) Chest pain (Acute) Subjective: On the day of discharge, patient was seen and examined. Denied any new complaint. Stress test was negative. Objective: Physical exam: - Physical Exam Vitals/I&O's: Vital Signs Temp Pulse Resp BP Pulse Ox 99.0 F 76 18 127/84 H 95 04/28/20 12:48 04/28/20 12:48 04/28/20 12:48 04/28/20 12:48 04/28/20 12:48 Oxygen Delivery Method Room Air Weight: 55.1 kg Body Mass Index (BMI) 18.4 Finger Stick Blood Glucose 102 Intake and Output for Last 24 Hours 04/26/20 04/27/20 04/28/20 23:59 23:59 23:59 Intake Total 206.67 / 206.67 Output Total 0 / 0 Balance 206.67 / 206.67 General: Alert, Oriented x3, Cooperative, No apparent distress HEENT: Atraumatic, PERRLA, EOMI, Normocephalic Oral: Moist Mucosa Neck: Supple Lungs: Clear to auscultation, Normal air movement Cardiovascular: Regular rate, Regular Rhythm, Normal S1, Normal S2, No murmurs Abdomen: Bowel Sounds Present, Soft, Non Tender, Non-Distended Extremities: No edema Skin: No rashes Musculoskeletal: No Tenderness to Palpation of Joints or Extremities Lymphatic: No Cervical, Supraclavicular, or Inguinal Adenopathy Neurological: Cranial nerves II-XII grossly intact, Neuro grossly intact, - - Hard of hearing Psych/Mental Status: Normal Affect, Appropriate Laboratory Results 04/28/20 02:21: COVID-19 ([facility]) Cancelled 04/28/20 02:24: WBC 9.8, RBC 4.13 L, Hgb 13.7, Hct 42.3, MCV 102.4 H, MCH 33.2 H, MCHC 32.4, RDW Std Deviation 56.4 H, RDW Coeff of Clement 14.8 H, Plt Count 190, MPV 10.5, Immature Gran % (Auto) 0.400, Neut % (Auto) 73.6 H, Lymph % (Auto) 16.8 L, Cataño % (Auto) 8.3, Eos % (Auto) 0.7, Baso % (Auto) 0.2, Absolute Neuts (auto) 7.2, Absolute Lymphs (auto) 1.65, Nucleated RBC % 0 04/28/20 02:24: D-Dimer Quant (PE/DVT) 0.58 H* 04/28/20 02:24: Sodium 144, Potassium 3.5, Chloride 113 H, Carbon Dioxide 26.0, Anion Gap 5, BUN 20 H, Creatinine 0.67, Estim Creat Clear Calc 47.26, Est GFR (MDRD) Af Amer 112, Est GFR (MDRD) Non-Af 93, BUN/Creatinine Ratio 29.8 H, Glucose 123 H, Calcium 8.8, Troponin I < 0.015 04/28/20 02:24: Magnesium 2.1, Troponin I Cancelled, Triglycerides 157, Cholesterol 150, LDL Cholesterol 67, VLDL Cholesterol 31, HDL Cholesterol 52 04/28/20 02:30: COVID-19 ([facility]) Not Detected 04/28/20 05:45: Troponin I < 0.015 04/28/20 08:35: Troponin I < 0.015 Current Medications Acetaminophen (Acetaminophen 325 Mg Tablet) 650 mg PO Q6H PRN PRN PRN Reason: Pain Score 1-10/Temp > 100.7 F Albuterol Sulfate (Albuterol 2.5 Mg/3 Ml Vial.Neb.) 2.5 mg INHALATION Q2H PRN PRN PRN Reason: dyspnea, wheezing Albuterol/Ipratropium (Ipratropium/Albuterol Sulfate 3 Ml Ampul.Neb) 3 ml INHALATION Q6HWA.RT [facility] Last Admin: 04/28/20 06:09 Dose: 3 ml Documented by: Aspirin (Aspirin E.C. 81 Mg Tablet) 81 mg PO DAILY@0800 [facility] Last Admin: 04/28/20 06:42 Dose: 81 mg Documented by: Baclofen (Baclofen 10 Mg Tablet) 15 mg PO BID PRN PRN PRN Reason: MUSCLE SPASM Divalproex Sodium (Divalproex (Er) 500 Mg Tablet) 500 mg PO BID [facility] Last Admin: 04/28/20 10:59 Dose: 500 mg Documented by: Enoxaparin Sodium (Enoxaparin 40 Mg/0.4 Ml Syringe) 40 mg SC DAILY [facility] Guaifenesin (Guaifenesin 10 Ml Udc (200mg/10ml)) 20 ml PO Q4H PRN PRN PRN Reason: COUGH Heparin Sodium (Beef Lung) (Heparin Pf Lock 10 Units/Ml 50 Units/5 Ml Syringe) 50 units IV UD PRN PRN Reason: R Port Heparin Flush Last Admin: 04/28/20 12:50 Dose: 50 units Documented by: Hydralazine HCl (Hydralazine 20 Mg/Ml Vial) 10 mg IV Q4H PRN PRN PRN Reason: SBP > 160 Sodium Chloride () 1,000 mls @ 100 mls/hr IV .Q10H [facility] Last Infusion: 04/28/20 11:14 Dose: 100 mls/hr Documented by: Indomethacin (Indomethacin 25 Mg Capsule) 25 mg PO DAILY PRN PRN PRN Reason: HEADACHE Levothyroxine Sodium (Levothyroxine 75 Mcg Tablet) 75 mcg PO DAILY@0600 [facility] Last Admin: 04/28/20 06:42 Dose: 75 mcg Documented by: Magnesium Hydroxide (Magnesium Hydroxide 30 Ml Udc) 30 ml PO DAILY PRN PRN PRN Reason: Constipation Melatonin (Melatonin 10 Mg Tablet) 10 mg PO QHS [facility] Mirabegron (Mirabegron 25 Mg Tab.Er.24h) 25 mg PO DAILY [facility] Last Admin: 04/28/20 10:59 Dose: 25 mg Documented by: Morphine Sulfate (Morphine 2 Mg/Ml Syringe) 2 mg IV Q3H PRN PRN PRN Reason: Pain Score 6-10 Nitroglycerin (Nitroglycerin (Inpatient Use) 0.4 Mg Tab.Subl) 0.4 mg SUBLINGUAL Q5M PRN PRN Reason: CARDIAC/CHEST PAIN Nortriptyline HCl (Nortriptyline 25 Mg Capsule) 25 mg PO QHS [facility] Nutritional Formula (Lactose Free) (Ensure Enlive 120 Ml Liquid) 120 ml PO 4X/DAY [facility] Last Admin: 04/28/20 10:59 Dose: 120 ml Documented by: Ondansetron HCl (Ondansetron 4 Mg/2 Ml Vial) 4 mg IV Q8H PRN PRN PRN Reason: NAUSEA/VOMITING Oxycodone HCl (Oxycodone 5 Mg Tablet) 5 mg PO Q4H PRN PRN PRN Reason: Pain Score 4-5 Pantoprazole Sodium (Pantoprazole Sodium 40 Mg Tablet) 40 mg PO DAILY [facility] Last Admin: 04/28/20 11:00 Dose: 40 mg Documented by: Pramipexole Dihydrochloride (Pramipexole Di-Hcl 0.25 Mg Tablet) 0.25 mg PO QHS [facility] Psyllium Hydrophilic Mucilloid (Psyllium 1 Packet) 1 packet PO DAILY PRN PRN PRN Reason: Constipation Rizatriptan Benzoate (Rizatriptan Benzoate 10 Mg Tablet) 10 mg PO DAILY PRN PRN PRN Reason: MIGRAINES Senna/Docusate Sodium (Senna/Docusate Sodium 1 Tablet) 2 tablet PO BID PRN PRN PRN Reason: Constipation Sertraline HCl (Sertraline 100 Mg Tablet) 100 mg PO DAILY [facility] Last Admin: 04/28/20 10:59 Dose: 100 mg Documented by: Sodium Chloride (0.9% Saline Lock 10 Ml Syringe) 10 - 40 ml IV UD PRN PRN Reason: R Port Saline Flush Last Admin: 04/28/20 12:50 Dose: 10 ml Documented by: Sodium Chloride (0.9 % Nacl (Sterile) Posiflush 10 Ml) 10 - 40 ml IV UD PRN PRN Reason: Port access or dressing change Throat Lozenges (Benzocaine/Menthol 1 Lozenge) 1 lozenge MUCOUS MEM Q2H PRN PRN PRN Reason: SORE THROAT Discharge Diet: Low fat/ Low Cholesterol, 2000 mg Sodium Diet Discharge Activity: Return to Normal Activity Home Medications: Medications to take at Discharge RX: Sertraline HCl [Zoloft] 100 mg PO DAILY 12/14/17 RX: Ropinirole HCl [Requip] 0.5 mg PO QHS 09/27/18 RX: Albuterol Aerosols [Ventolin Aerosols] 2.5 mg INHALATION Q2H PRN PRN vial.neb. 09/29/18 RX: Budesonide/Formoterol Fumarate [Symbicort 160-4.5 Mcg Inhaler] 2 puff IH BID 12/08/18 RX: Ipratropium/Albuterol Sulfate [Iprat-Albut 0.5-3(2.5) mg/3 ml] 3 ml IH Q4H PRN PRN 12/08/18 RX: Rizatriptan Benzoate [Rizatriptan] 10 mg PO DAILY PRN PRN 12/08/18 RX: Ensure Enlive 120 ml PO 4X/DAY #120 liquid 12/12/18 RX: Indomethacin 25 mg PO DAILY PRN 12/18/19 RX: Levothyroxine [Synthroid] 75 mcg PO DAILY@0600 12/18/19 RX: Baclofen [Lioresal] 15 mg PO BID PRN PRN 03/02/20 RX: Divalproex Sodium [Depakote ER] 500 mg PO BID 03/02/20 RX: Pantoprazole Sodium [Protonix] 40 mg PO DAILY 03/02/20 RX: Acetaminophen [Tylenol Tablet] 650 mg PO Q6H PRN PRN tab 04/28/20 RX: Aspirin E.C. [Ecotrin] 81 mg PO DAILY@0800 tab 04/28/20 RX: Cranberry Fruit Concentrate [Azo Cranberry] 250 mg PO DAILY 04/28/20 RX: Doxepin HCl 3 mg PO QHS 04/28/20 RX: Melatonin 10 mg PO QHS 04/28/20 RX: Mirabegron [Myrbetriq] 25 mg PO DAILY 04/28/20 RX: Multivitamin [Daily Multiple Vitamin] 1 ea PO DAILY 04/28/20 RX: Nortriptyline HCl [Pamelor] 25 mg PO QHS 04/28/20 Primary Care Physician: Todd De Leon DO [Primary Care Provider] - Please follow up with your Primary Care Physician in: within 2 weeks Disposition: Home Minutes spent on discharge:: 40 Patient Condition:: Stable Medical Necessity - Tobacco Use Smoking Status: Current every day smoker Tobacco Use: Cigarettes Meaningful Use Info Meaningful Use Diagnoses (Choose all that apply): None applicable OBSV E&M: 79859 Observation care discharge
== END 2020-04-28 16:05 | disposition home or self-care (01) ==
LOC: ED 02:35 → PCU 04:41
PROVIDERS: Admitting Provider Family Medicine; Emergency Provider Emergency Medicine; PCP Family Medicine; Visit Provider Internal Medicine
DX: R07.89 Other chest pain (principal); R00.2 Palpitations; Z23 Encounter for immunization; F41.9 Anxiety disorder, unspecified; G47.33 Obstructive sleep apnea (adult) (pediatric); G25.81 Restless legs syndrome; J44.9 Chronic obstructive pulmonary disease, unspecified; I10 Essential (primary) hypertension; E03.9 Hypothyroidism, unspecified; J84.10 Pulmonary fibrosis, unspecified; J96.11 Chronic respiratory failure with hypoxia; Z86.19 Personal history of other infectious and parasitic diseases; Z79.899 Other long term (current) drug therapy; G40.909 Epilepsy, unspecified, not intractable, without status epilepticus; G43.909 Migraine, unspecified, not intractable, without status migrainosus; E78.5 Hyperlipidemia, unspecified; I67.83 Posterior reversible encephalopathy syndrome; G89.29 Other chronic pain; F17.210 Nicotine dependence, cigarettes, uncomplicated; F32.9 Major depressive disorder, single episode, unspecified; K21.9 Gastro-esophageal reflux disease without esophagitis
CPT/HCPCS: 36415; 36591; 71045; 71275; 78452; 80048; 80061; 83735; 84484; 85025; 85379; 87635; 93005; 93017; 94640; 96361; 96374; 96375; 99218; 99251; 99285; 99406; A9500; G0008; J7030; Q9967; 90686; A4216; G0378; G0463; J2785; U0002

== ENCOUNTER 2020-06-13 15:32 | Emergency (ER) | payer MEDICARE, OTHER, SELFPAY ==
[2020-05-22 13:28] VITALS: BMI 18.5
[2020-06-13 15:34] VITALS: BP 131/72; PULSE 78; RESP 16; TEMP 36.6; O2SAT 95; BMI 18.5
--- NOTE | 2020-06-13 15:45 | ED.VIS.GEN ---
History of Present Illness Chief Complaint: Headache Informant: Patient Onset: Days - Onset 06/11/2020 Current Severity: Moderate Maximum Severity: Moderate Narrative: Patient presents secondary to migraine headache. She reports headache for the last 2 days over the left frontal portion of her head. She does have a history of migraines. She states she used to be on rizatriptan but has not been on this for a while. She typically just takes Tylenol. She states her headaches typically come on once a month or so. She denies any recent head injury or URI symptoms. - Past Medical History (1) CVA (cerebral vascular accident) Status: Chronic (2) Seizures Status: Chronic (3) Anxiety and depression Status: Chronic (4) COPD (chronic obstructive pulmonary disease) Status: Chronic (5) HTN (hypertension) Status: Chronic (6) Hypothyroidism Status: Chronic (7) RENNY (obstructive sleep apnea) Status: Chronic (8) PRES (posterior reversible encephalopathy syndrome) Status: Chronic (9) Pulmonary fibrosis Status: Chronic Past Medical History - Allergies and Home Meds Allergies/Adverse Reactions: Allergies Sulfa (Sulfonamide Antibiotics) Adverse Reaction (Intermediate, Verified 06/13/20 15:34) Other - Messes with blood counts prochlorperazine edisylate [From Compazine] Adverse Reaction (Mild, Verified 06/13/20 15:34) Other - Restless legs prochlorperazine maleate [From Compazine] Adverse Reaction (Mild, Verified 06/13/20 15:34) Other - Restless legs Primary Care Physician: Todd De Leon DO [Primary Care Provider] - Prior records reviewed: Yes Surgical History: appendectomy, cholecystectomy, hysterectomy, total hip arthroplasty - Right, - - thyroidectomy and BL intraocular lens implants,cochear implant Smoking Status: Current every day smoker - Family History Maternal Family History: Family History (Last Reviewed 05/22/20 @ 13:09 by Afua Vidales) Mother Hypertension CVA (cerebral vascular accident) Father CVA (cerebral vascular accident) Hypertension Sister Colon cancer Grandfather Hypertension Heart disease Family History: Reports: Heart Disease, Stroke Paternal Family History: Family History (Last Reviewed 05/22/20 @ 13:09 by Afua Vidales) Mother Hypertension CVA (cerebral vascular accident) Father CVA (cerebral vascular accident) Hypertension Sister Colon cancer Grandfather Hypertension Heart disease Family History: Reports: Heart Disease, Stroke Sibling Family History: Family History (Last Reviewed 05/22/20 @ 13:09 by Afua Vidales) Mother Hypertension CVA (cerebral vascular accident) Father CVA (cerebral vascular accident) Hypertension Sister Colon cancer Grandfather Hypertension Heart disease Family History: Reports: - - sister with colon cancer Review of Systems General: Denies: Chills, Fever Eyes: Denies: Visual changes - bilaterally ENT: Denies: Bilateral ear pain Cardiovascular: Denies: Chest pain Respiratory: Denies: Dyspnea, Cough Gastrointestinal: Denies: Abdominal pain, Nausea, Vomiting Musculoskeletal: Denies: Extremity Pain Neurological: Reports: Headache. Denies: Weakness, Parasthesia Hematologic: Denies: Easy bruising, Easy bleeding Allergy: Denies: Uticaria Physical Exam Vital Signs/Narrative: Vital Signs Temp Pulse Resp BP Pulse Ox 06/13/20 15:34 97.8 F 78 16 131/72 H 95 Inital Vital Signs reviewed: Yes General: Well nourished, Well developed Head: Normocephalic ENT: Moist mucous membranes Neck: Supple Cardiovascular: Regular rate, Regular rhythm Respiratory: No distress, CTA bilaterally Abdomen: Soft, Nontender Extremities: Nontender Skin: Normal color Neurological: Alert, Oriented x3, - - Strong bilateral hand grasp. Equal push and pull bilaterally. Psychological: Normal affect Diagnostic/Tx/Re-eval - Medical Decision Making Patient was given small doses of Toradol, Reglan, Benadryl, and 500 cc IV fluid bolus. On repeat evaluation she states her headache is completely resolved. She will be discharged at this time. ED Disposition - Plan for ED Patient: Disposition: Home or Assisted Living Diagnosis: Migraine Instructions: ED, Migraine (Classical) Referrals: Todd De Leon DO [Primary Care Provider] - As Needed
[2020-06-13] MEDS: DiphenhydrAMINE 50 MG/ML Syringe 12.5 MG IV (16:09)
[2020-06-13] MEDS: Metoclopramide 10 MG/2 ML Vial 5 MG IV (16:10)
[2020-06-13] MEDS: Ketorolac 15 MG/ML Vial IV (16:13)
[2020-06-13 17:24] VITALS: BP 128/77; PULSE 79; RESP 17; O2SAT 95
== END 2020-06-13 17:26 | disposition home or self-care (01) ==
PROVIDERS: Emergency Provider Emergency Medicine; PCP Family Medicine
DX: G43.909 Migraine, unspecified, not intractable, without status migrainosus (principal); F17.200 Nicotine dependence, unspecified, uncomplicated; F32.9 Major depressive disorder, single episode, unspecified; E03.9 Hypothyroidism, unspecified; Z86.73 Personal history of transient ischemic attack (TIA), and cerebral infarction without residual deficits
CPT/HCPCS: 36591; 96374; 96375; 99282; J7040

== ENCOUNTER → 2020-08-12 15:39 | Outpatient (CLI) | payer MEDICARE, OTHER, MEDICAID, SELFPAY ==
--- NOTE | 2020-08-12 15:50 | RAD_ITS ---
STUDY: X-RAY - RIGHT SHOULDER REASON FOR EXAM: Female, 70 years old. PAIN IN SHOULDER TECHNIQUE: 4 view(s) of the shoulder. COMPARISON: None. FINDINGS: The humeral head is high riding abutting the undersurface of the acromium compatible with a full-thickness rotator cuff tear. The glenohumeral articulation is severely narrow with [id number] contact. Normal acromioclavicular joint. Normal acromion. Normal humeral head and visualized proximal humerus. The soft tissue structures are unremarkable. Right chest port noted. Normal visualized pulmonary apex. RAD/Shoulder min 2 Views IMPRESSION: Severe DJD and evidence of a full-thickness rotator cuff tear Electronically Signed: True Powell MD at 23:56 EST , Service support ,
== END ==
PROVIDERS: PCP Family Medicine; Referring Provider Nurse Practitioner Family; Visit Provider Nurse Practitioner Family
DX: M25.511 Pain in right shoulder (principal)
CPT/HCPCS: 73030

== ENCOUNTER → 2020-08-26 13:29 | Outpatient (CLI) | payer MEDICARE, OTHER, MEDICAID, SELFPAY ==
[2020-08-26 14:08] LABS: Hematocrit 39.1 % (37-47); Mean Corp Hgb Conc 33.2 g/dL (32-36); Mean Corpuscular Hgb 32.7 pg (27.0-32.0); Mean Corpuscular Volume 98.5 fL (81-99); Mean Platelet Vol. 9.3 fl (6.2-12.0); Platelet Count 270 K/mm3 (150-450); RBC Distribution Width CV 13.7 % (11.6-14.6); RBC Distribution Width SD 50.4 fl (35.1-43.9); Red Blood Count 3.97 M/mm3 (4.2-5.4)
[2020-08-26 14:24] LABS: AST(SGOT) 12 U/L (15-37); Alanine Aminotransfer ALT/SGPT 12 U/L (13-56); Albumin, Serum 3.2 g/dL (3.2-5.0); Alkaline Phosphatase 101 U/L (45-117); Bilirubin, Direct 0.18 mg/dL (0.00-0.30); Globulin 3.6 g/dL (2.2-4.2); Protein, Total 6.8 g/dL (6.4-8.2)
[2020-08-26 14:50] LABS: Valproic Acid (Depakene) Level 78 ug/mL (50-100)
== END ==
PROVIDERS: PCP Family Medicine
DX: G40.909 Epilepsy, unspecified, not intractable, without status epilepticus (principal)
CPT/HCPCS: 36591; 80076; 80164; 85027; A4216

== ENCOUNTER → 2020-09-16 13:00 | Outpatient (CLI) | payer MEDICARE, OTHER, SELFPAY ==
[2020-09-10 09:54] VITALS: BMI 18.5
== END ==
PROVIDERS: PCP Family Medicine; Referring Provider Nurse Practitioner Acute Care; Visit Provider Nurse Practitioner Acute Care
DX: Z46.89 Encounter for fitting and adjustment of other specified devices (principal)
CPT/HCPCS: 98960; G0463

== ENCOUNTER → 2020-09-16 14:47 | Outpatient (CLI) | payer MEDICARE, OTHER, SELFPAY ==
[2020-09-10 09:54] VITALS: BMI 18.5
--- NOTE | 2020-09-16 14:49 | CT_ITS ---
STUDY: LOW DOSE CT LUNG CANCER SCREENING REASON FOR EXAM: Female, 70 years old. Smoker and gt; 40 pack years RADIATION DOSAGE (If Supplied By Facility): CTDIvol = ( 2.01 ) mGy, DLP = ( 57.15 ) mGycm TECHNIQUE: No contrast was administered. Low dose technique was utilized (average mAS-38 and kVp 120). 1.25 mm axial source images with a slice interval of 1.25-mm were reconstructed in lung windows. 2.5 mm axial source images with a slice interval of 2.5-mm were reconstructed in lung windows. 5.0 mm axial source images with a slice interval of 5.0-mm were reconstructed in soft tissue windows. Nodule measured using lung windows on PACS and/or independent workstation with automated measurement of minimum and maximum diameter. Nodule measurement reported as average diameter rounded to the nearest whole number. Growth is defined as an increase ins size of greater than 1.5 mm. COMPARISON: Comparison is made with prior study dated 04/28/2020. NODULES: Stable 5 mm noncalcified nodule in the anterior aspect of the right upper lobe as seen on axial image #111 and coronal image #72. Emphysema: Hyperinflation. Diffuse emphysematous changes with centrilobular cystic changes worse in the upper lobes. Stable scarring at the lung bases. Endobronchial lesion: None Aorta: Atherosclerotic obscuration of the aortic arch. Coronary arteries: Coronary artery calcification. Mediastinal nodes: Small mediastinal lymph nodes. Other chest and abdominal findings: CT/Low Dose CT Lung Screening IMPRESSION: Lung-RADS category 2 - Continue annual screening with LDCT in 12 months. IMPORTANT NOTES FOR USE: ACR Lung-RADS Version 1.1 Assessment Categories Release Date: 2018 Category: Coded 0-4 bases on nodule(s) with highest degree of suspicion. Negative screen is defined as categories 1 and 2; a positive screen is defined as categories 3 and 4. Category 3 and 4A nodules that are unchanged on interval CT should be coded as category 2, and individuals returned to screening in 12 months. Category 4X: Category 3 or 4 nodules with additional imaging findings that increase the suspicion of lung cancer, such as spiculation, GGN that doubles in size in 1 year, enlarged lymph notes, etc. Category Modifiers: S (significant finding unrelated to lung cancer) Electronically Signed: Mark Baez MD at 9:13 EDT , Service support ,
== END ==
PROVIDERS: PCP Family Medicine; Referring Provider Internal Medicine Critical Care Medicine; Visit Provider Internal Medicine Critical Care Medicine
DX: F17.210 Nicotine dependence, cigarettes, uncomplicated (principal); Z46.89 Encounter for fitting and adjustment of other specified devices
CPT/HCPCS: 71271; 98960; G0463

== ENCOUNTER 2020-11-11 17:59 | Emergency (ER) | payer MEDICARE, MEDICAID, SELFPAY ==
[2020-10-06 10:43] VITALS: BMI 18.5
[2020-11-11 18:01] VITALS: BP 131/72; PULSE 91; RESP 15; TEMP 36.4; O2SAT 96; BMI 18.5
--- NOTE | 2020-11-11 18:46 | EX.ED.VIS.HA ---
HPI History of Present Illness Chief Complaint: Headache Informant: patient and spouse/S.O. Onset/Context/Timing Onset: Days (3) Timing: Continuous Quality -Headache: Positive for Similar Prior Headaches and Throbbing Location: Right-sided Worsened by: Light Relieved by: Nothing Associated Symptoms/Injury Associated Symptoms: Positive for Photophobia; Negative for Fever, Nausea, Vomiting, Sore Throat, Sinus Pressure, Numbness, Tingling, Preceding Aura, Visual Changes, Blurred Vision and Visual Loss Injury - CORTEZ: Negative for Direct Trauma Narrative Narrative: Patient presents with migraine headache that has been getting worse over the past 3 days. Patient states this feels similar to prior migraine headaches. Patient states the pain is localized to the right side of her head. Patient states she took her home medications with no improvement. Patient admits to some photophobia. Patient denies any nausea or vomiting. Patient denies any fevers or chills. Patient denies paresthesias or weakness Prior similar symptoms: Yes PFSH PFS Medical History (Updated 11/11/20 @ 20:[address] Quang Moreno, DO) Acute delirium Acute respiratory failure Adrenal insufficiency Anxiety Bronchitis Carpal tunnel syndrome Cataract Chronic back pain COPD (chronic obstructive pulmonary disease) COPD with acute exacerbation Depression Gallstones HTN (hypertension) Hypersomnia Hypotension Hypothyroidism Leukocytosis Migraine Mild diastolic dysfunction MRSA pneumonia RENNY (obstructive sleep apnea) Osteopenia Presbycusis of both ears Pulmonary fibrosis Respiratory failure with hypercapnia Restless leg Septic shock Solitary pulmonary nodule Stage 2 moderate COPD by GOLD classification Tobacco abuse UTI (urinary tract infection) Home Medications sertraline 100 mg PO DAILY 12/14/17 [History Last Taken 12/08/18] ropinirole 0.5 mg PO QHS 09/27/18 [History Last Taken 12/07/18] levothyroxine 75 mcg PO DAILY@0600 12/18/19 [History Last Taken Unknown] baclofen 15 mg PO TID 03/02/20 [History Last Taken Unknown] divalproex 500 mg PO BID 03/02/20 [History Last Taken Unknown] pantoprazole 40 mg PO DAILY 03/02/20 [History Last Taken Unknown] acetaminophen 650 mg PO Q6H PRN PRN tab 04/28/20 [Rx Last Taken Unknown] doxepin 3 mg PO QHS 04/28/20 [History Last Taken Unknown] mirabegron 50 mg PO DAILY 04/28/20 [History Last Taken Unknown] multivitamin 1 ea PO DAILY 04/28/20 [History Last Taken Unknown] budesonide 160 mcg-glycopyr 9 mcg-formot 4.8 mcg/actuation HFA inhaler 2 inh INHALATION BID #3 each 09/10/20 [Rx Last Taken Unknown] magnesium carb,citrate,oxide 300 mg PO DAILY 09/10/20 [History Last Taken Unknown] nortriptyline 10 mg capsule 10 mg PO DAILY 09/10/20 [History Last Taken Unknown] albuterol sulfate 90 mcg/actuation aerosol inhaler 2 puff INHALATION Q6H PRN #18 g 10/06/20 [Rx Last Taken Unknown] Allergy/AdvReac Type Severity Reaction Status Date / Time Sulfa (Sulfonamide AdvReac Intermediate Other - Verified 11/11/20 18:01 Antibiotics) Messes with blood counts prochlorperazine edisylate AdvReac Mild Other - Verified 11/11/20 18:01 [From Compazine] Restless legs prochlorperazine maleate AdvReac Mild Other - Verified 11/11/20 18:01 [From Compazine] Restless legs Family History (Reviewed 10/06/20 @ 11:05 by Faye Perez CORPORATE LOGISTICS MANAGER, CORPORATE LOGISTICS MANAGER-C) Mother Hypertension CVA (cerebral vascular accident) Father CVA (cerebral vascular accident) Hypertension Sister Colon cancer Grandfather Hypertension Heart disease Surgical History Cochlear implant in place H/O adenoidectomy H/O: hysterectomy History of cataract surgery History of cholecystectomy History of lung biopsy Hx of appendectomy Hx of left knee surgery lipoma removal vocal nodules removed Social History Smoking Status: Heavy Smoker (>10/day) Tobacco: How many years used: 48 second hand exposure: No alcohol intake: never substance use type: does not use ROS ROS ED Constitutional Constitutional ED: Denies chills or fever(s) Eyes Eyes: Denies blurry vision or change in vision ENT ENT ED: Denies rhinorrhea or sore throat Cardiovascular Cardiovascular: Denies chest pain or palpitations Respiratory/Chest Respiratory/Chest: Denies cough or dyspnea Gastrointestinal Gastrointestinal: Denies nausea or vomiting Genitourinary Genitourinary ED: Denies dysuria or hematuria Musculoskeletal Musculoskeletal: Reports back pain and neck pain Integumentary Denies abscess or rash Neurologic Neurologic: Reports headache(s); Denies weakness Allergic/Immunologic Allergic/Immunologic ED: Denies mouth swelling or urticaria EXAM Physical Exam Const Vital Signs: 11/11/20 18:01 Temperature 97.6 F L Temperature Source Temporal Pulse Rate 91 Respiratory Rate 15 Blood Pressure 131/72 H Blood Pressure Mean 91 Pulse Ox 96 Oxygen Delivery Method Room Air Positive well nourished and well developed General Appearance ED: well developed HEENT Reports normocephalic and moist mucous membranes atraumatic Eyes PERRL and EOMs intact bilaterally Neck supple and no JVD Resp normal respiratory effort and clear to auscultation bilaterally Cardio regular rate and regular rhythm GI non-tender and non-distended Auscultation: normoactive bowel sounds Palpation: soft Neuro oriented x3 and CN's II-XII intact bilaterally Sensorium / Orientation: awake and alert Psych mental status grossly normal MDM MDM MDM Narrative Medical decision making narrative: Patient was given IV fluids, Reglan, Benadryl, and Toradol. Patient states her headache is almost completely resolved. Patient was instructed to rest in a dark quiet room. Patient was instructed to follow-up with her primary care physician in 5 to 7 days. Patient understood and was agreeable with the plan. All questions were answered. Discharge Plan Triage Chief Complaint: Headache ED Provider: Quang Moreno Dx/Rx/DC Orders Clinical Impression: Headache, migraine Instructions: ED, Migraine (Classical) Prescriptions: No Action Magnesium Complex 300 mg magnesium tablet 300 mg PO DAILY RF: 0 nortriptyline 10 mg capsule 10 mg PO DAILY RF: 0 Breztri Aerosphere 160-9-4.8 mcg/actuation HFA aerosol inhaler 2 inh INHALATION BID Qty: 3 RF: 3 albuterol sulfate [Ventolin HFA] 90 mcg/actuation HFA aerosol inhaler 2 puff INHALATION Q6H PRN (Reason: shortness of breath or wheezing) Qty: 18 RF: 3 sertraline 50 MG tablet 100 mg PO DAILY RF: 0 ropinirole 0.5 MG tablet 0.5 mg PO QHS RF: 0 levothyroxine 100 MCG tablet 75 mcg PO DAILY@0600 RF: 0 pantoprazole 20 MG tablet 40 mg PO DAILY RF: 0 baclofen 10 MG tablet 15 mg PO TID RF: 0 divalproex 500 MG tablet extended release 24 hr 500 mg PO BID RF: 0 multivitamin 1 EACH tablet 1 ea PO DAILY RF: 0 doxepin 3 MG tablet 3 mg PO QHS RF: 0 mirabegron 25 MG tablet extended release 24 hr 50 mg PO DAILY RF: 0 acetaminophen 325 MG tablet 650 mg PO Q6H PRN PRN (Reason: Pain Score 1-10/Temp > 100.7 F) RF: 0 Primary Care Provider: Todd De Leon Referrals: Todd De Leon DO [Primary Care Provider] - 5-7 Days Disposition Disposition: Home, self care
[2020-11-11] MEDS: Ketorolac 30 MG/ML Syringe IV (19:02)
[2020-11-11] MEDS: Metoclopramide 10 MG/2 ML Vial IV (19:04)
[2020-11-11] MEDS: DiphenhydrAMINE 50 MG/ML Syringe 25 MG IV (19:05)
[2020-11-11] MEDS: 0.9% Normal Saline 1,000 ML 999 ML IV (19:06)
[2020-11-11 20:41] VITALS: PULSE 71; RESP 18; O2SAT 99
== END 2020-11-11 20:41 | disposition home or self-care (01) ==
PROVIDERS: Emergency Provider Emergency Medicine; PCP Family Medicine
DX: G43.909 Migraine, unspecified, not intractable, without status migrainosus (principal); F17.200 Nicotine dependence, unspecified, uncomplicated; E03.9 Hypothyroidism, unspecified; J44.9 Chronic obstructive pulmonary disease, unspecified; Z79.899 Other long term (current) drug therapy
CPT/HCPCS: 36591; 96374; 96375; 99282; J7030; A4216

== ENCOUNTER → 2020-12-08 08:10 | Outpatient (CLI) | payer MEDICARE, MEDICAID, SELFPAY ==
[2020-09-10 09:54] VITALS: BMI 18.5
[2020-11-11 18:01] VITALS: BMI 18.5
--- NOTE | 2020-12-08 14:46 | PFTCOMP_ITS ---
COMPLETE PULMONARY FUNCTION TEST INTERPRETATION Brief HPI: Patient is a 70 year old female, currently under the care of myself, who presents to [facility] for complete pulmonary function tests secondary to diagnosis of dyspnea. Respiratory therapist reports good effort and reproducible results. Interpretation: Forced expiration spirometry shows no large airways obstructive ventilatory defect with an FEV1 of 50% predicted. There is no significant bronchodilator response by strict ATS criteria. Spirograms are of good quality and plateau normally. The respiratory flow volume loop shows decreased expiratory flow rates at high lung volumes consistent with small airways obstruction. Lung volumes by body plethysmography show a decreased total lung capacity at 3.65 L, 65% predicted. All other lung volumes are reduced symmetrically. Diffusion capacity by carbon monoxide is decreased at 48% predicted. The airway resistance is elevated. Compared to previous pulmonary function tests from 04/15/20, there is been a significant improvement in DLCO by 46%. Impression: Moderate restrictive ventilatory defect with a symmetric reduction diffusing capacity, but some improvement compared to previous testing.
== END ==
PROVIDERS: PCP Family Medicine; Referring Provider Nurse Practitioner Acute Care; Visit Provider Nurse Practitioner Acute Care
DX: J44.9 Chronic obstructive pulmonary disease, unspecified (principal)
CPT/HCPCS: 94060; 94726; 94729

== ENCOUNTER → 2021-03-02 14:02 | Outpatient (CLI) | payer MEDICARE, SELFPAY ==
--- NOTE | 2021-03-02 14:05 | CT_ITS ---
STUDY: CT BRAIN WITHOUT CONTRAST REASON FOR EXAM: Female, 71 years old. ABNORMAL GAIT RADIATION DOSAGE (If Supplied By Facility): CTDIvol = ( 44.99 ) mGy, DLP = ( 812.98 ) mGycm TECHNIQUE: Transaxial CT imaging of the brain was performed without administration of intravenous contrast material. Individualized dose optimization techniques were used for this CT. COMPARISON: Comparison is made with prior study dated 12/18/2019. FINDINGS: Normal soft tissue structures. Streak artifact from a left-sided hearing device. There is mild cerebral atrophy with widening of the extra-axial spaces and ventricular dilatation. There are areas of decreased attenuation within the white matter tracts of the supratentorial brain, consistent with microvascular disease changes. There is evidence of focal encephalomalacia along the posterior medial aspect of the right parietal occipital lobe into with prior ischemic insult. Normal basal ganglia and thalami. Normal brainstem. Normal cerebellum. There is no intracranial hemorrhage. There are no findings of an acute ischemic infarction. Atherosclerotic calcification of the cavernous portions of the internal carotid arteries bilaterally. Opacification of the left mastoid air cells. CT/Brain/Head without Contrast IMPRESSION: Chronic involutional changes of the brain. 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
== END ==
PROVIDERS: PCP Family Medicine
DX: R26.9 Unspecified abnormalities of gait and mobility (principal)
CPT/HCPCS: 70450

== ENCOUNTER → 2021-06-08 15:15 | Outpatient (CLI) | payer MEDICARE, SELFPAY | PROVIDERS: PCP Family Medicine; Visit Provider Nurse Practitioner Acute Care | DX: Z46.89 Encounter for fitting and adjustment of other specified devices (principal) ==

== ENCOUNTER → 2021-06-30 14:59 | Outpatient (CLI) | payer MEDICARE, MEDICAID, SELFPAY ==
[2021-06-30 15:34] LABS: Absolute Lymphocyte Count 0.82 X10^3/uL (0.83-4.51); Absolute Neutrophil Count 12.3 X10^3/uL (2.0-7.7); Basophil# 0.04 X10^3/uL; Basophil% 0.3 % (0-1); Eosinophil# 0.09 X10^3/uL; Eosinophils% 0.6 % (0-5); Hematocrit 39.4 % (37-47); Hemoglobin 12.4 g/dL (12.0-15.0); Lymphocyte # 0.82 X10^3/ul (0.83-4.51); Lymphocyte % 5.7 % (19-41); Mean Corp Hgb Conc 31.5 g/dL (32-36); Mean Corpuscular Hgb 32.6 pg (27.0-32.0); Mean Corpuscular Volume 103.7 fL (81-99); Mean Platelet Vol. 9.2 fl (6.2-12.0); Monocyte# 1.05 X10^3/uL; Monocyte% 7.3 % (0-10); NRBC Flagged by Analyzer 0 % (0-5); Neutrophil # 12.28 X10^3/uL (2.7-7.7); Neutrophil % 84.9 % (47-70); Platelet Count 268 K/mm3 (150-450); RBC Distribution Width SD 57.7 fl (35.1-43.9); White Blood Count 14.5 K/mm3 (4.4-11.0)
[2021-06-30 15:58] LABS: AST(SGOT) 11 U/L (15-37); Alanine Aminotransfer ALT/SGPT 12 U/L (13-56); Albumin, Serum 2.4 g/dL (3.2-5.0); Alkaline Phosphatase 140 U/L (45-117); Bilirubin, Direct 0.31 mg/dL (0.00-0.30); Globulin 5.2 g/dL (2.2-4.2); Protein, Total 7.6 g/dL (6.4-8.2)
[2021-06-30 16:28] LABS: Valproic Acid (Depakene) Level 97 ug/mL (50-100)
== END ==
PROVIDERS: PCP Family Medicine
DX: G40.909 Epilepsy, unspecified, not intractable, without status epilepticus (principal)
CPT/HCPCS: 36591; 80076; 80164; 82140; 85025; A4216

== ENCOUNTER 2021-09-21 11:26 | Outpatient (CLI) | payer MEDICARE, MEDICAID, SELFPAY ==
--- NOTE | 2021-09-21 11:48 | CT_ITS ---
STUDY: LOW DOSE CT LUNG CANCER SCREENING REASON FOR EXAM: Female, 71 years old. Smoker and gt; 40 pack years. History of COPD, emphysema and pulmonary fibrosis. RADIATION DOSAGE (If Supplied By Facility): CTDIvol = ( 2.01 ) mGy, DLP = ( 62.18 ) mGycm TECHNIQUE: No contrast was administered. Low dose technique was utilized (average mAS-38 and kVp 120). 1.25 mm axial source images with a slice interval of 1.25-mm were reconstructed in lung windows. 2.5 mm axial source images with a slice interval of 2.5-mm were reconstructed in lung windows. 5.0 mm axial source images with a slice interval of 5.0-mm were reconstructed in soft tissue windows. Nodule measured using lung windows on PACS and/or independent workstation with automated measurement of minimum and maximum diameter. Nodule measurement reported as average diameter rounded to the nearest whole number. Growth is defined as an increase ins size of greater than 1.5 mm. COMPARISON: Comparison is made with prior study dated 09/16/2020. NODULES: Stable 5 mm noncalcified nodule in the anterior aspect of the right upper lobe as seen on axial image 119. Emphysema: Diffuse emphysematous changes with evidence of a bullous formation and interstitial scarring. There is evidence of infiltrates in both posterior medial segments of the lower lobes worse on the right side. Findings suggestive of round atelectasis at the left lung base. Endobronchial lesion: None Aorta: Atherosclerotic plaque formation. Coronary arteries: Coronary artery calcification. Heart: Pulmonary artery: Unremarkable Mediastinal nodes: Small mediastinal lymph nodes. Other chest and abdominal findings: CT/Low Dose CT Lung Screening IMPRESSION: Lung-RADS category 3 - Continue screening with LDCT in 6 months. IMPORTANT NOTES FOR USE: ACR Lung-RADS Version 1.1 Assessment Categories Release Date: 2018 Category: Coded 0-4 bases on nodule(s) with highest degree of suspicion. Negative screen is defined as categories 1 and 2; a positive screen is defined as categories 3 and 4. Category 3 and 4A nodules that are unchanged on interval CT should be coded as category 2, and individuals returned to screening in 12 months. Category 4X: Category 3 or 4 nodules with additional imaging findings that increase the suspicion of lung cancer, such as spiculation, GGN that doubles in size in 1 year, enlarged lymph notes, etc. Category Modifiers: S (significant finding unrelated to lung cancer) Electronically Signed: Mark Baez MD at 14:11 EDT ,
[2021-09-21 12:33] LABS: Valproic Acid (Depakene) Level 99 ug/mL (50-100)
== END 2021-09-21 23:59 | disposition home or self-care (01) ==
LOC: MEDOUTP 11:27
PROVIDERS: PCP Family Medicine; Referring Provider Family Medicine; Visit Provider Family Medicine
DX: G40.909 Epilepsy, unspecified, not intractable, without status epilepticus (principal); F17.210 Nicotine dependence, cigarettes, uncomplicated
CPT/HCPCS: 36591; 71271; 80164; A4216

== ENCOUNTER 2021-10-22 19:23 | Emergency (ER) | payer MEDICARE, MEDICAID, SELFPAY ==
[2021-10-22 19:24] VITALS: BP 128/67; PULSE 90; RESP 16; TEMP 36.3; O2SAT 95; BMI 13.9
--- NOTE | 2021-10-22 19:30 | RAD_ITS ---
EXAM: XR RIGHT RIBS AND AP CHEST, 3 OR MORE VIEWS CLINICAL INDICATION: RIGHT RIB PAIN TECHNIQUE: Frontal and oblique views of the right ribs and frontal view of the chest. This report was created using amazing[employer] report [employer] technology. COMPARISON: 04.28.20 FINDINGS: LUNGS AND PLEURAL SPACES: Unremarkable. No consolidation or edema. No pneumothorax. No effusion. HEART: Unremarkable. Cardiac silhouette not enlarged. MEDIASTINUM: Central airways and mediastinal contour are unremarkable. BONES/JOINTS: Degenerative findings in the lumbar spine. Degenerative findings in the thoracic spine. Total right shoulder arthroplasty. No evidence of displaced rib fractures. TUBES, LINES AND DEVICES: There is a right Port-A-Cath and/or mediport in place. The tip is in the superior vena cava. RAD/Ribs Uni Min 3V w/PA Chest IMPRESSION: No acute findings in the chest or right ribs. Electronically Signed: Chris Mata MD at 19:58 EDT ,
--- NOTE | 2021-10-22 21:11 | EKG12_ITS ---
Test Reason : CHEST OTHER Blood Pressure : / mmHG Vent. Rate : 092 BPM Atrial Rate : 092 BPM P-R Int : 124 ms QRS Dur : 076 ms QT Int : 360 ms P-R-T Axes : 051 022 070 degrees QTc Int : 445 ms Normal sinus rhythm Inferior infarct , age undetermined Abnormal ECG Confirmed by SUNIL YEUNG, MORTEZA ([id number]), general expeditor JW ALEXIS ([id number]) on 10/26/2021 1:37:07 PM Referred By: Confirmed By:MORTEZA BARBER MD
--- NOTE | 2021-10-22 21:12 | ED.VIS.CHEST ---
HPI History of Present Illness Chief Complaint: Chest Other Informant: patient Narrative Narrative: 71-year-old female presenting to the emergency department with a chief complaint of right rib pain. Patient states its been present for about 4 days. Is worse with movement and deep breaths. She has been putting some lidocaine patches on the sore area, which she states is helping. She denies any urinary or bowel symptoms. No change in her chronic shortness of breath. No palpitations or heart racing episodes. No known trauma. She has not observed any rashes. She has pulmonary fibrosis and COPD. [facility] Medical History (Updated 10/22/21 @ 23:[address] Chato Allen, ) Acute delirium Acute respiratory failure Adrenal insufficiency Anxiety Bronchitis Carpal tunnel syndrome Cataract Chronic back pain COPD (chronic obstructive pulmonary disease) COPD with acute exacerbation Depression Gallstones HTN (hypertension) Hypersomnia Hypotension Hypothyroidism Leukocytosis Migraine Mild diastolic dysfunction MRSA pneumonia RENNY (obstructive sleep apnea) Osteopenia Presbycusis of both ears Pulmonary fibrosis Respiratory failure with hypercapnia Restless leg Septic shock Solitary pulmonary nodule Stage 2 moderate COPD by GOLD classification Tobacco abuse UTI (urinary tract infection) Home Medications sertraline 100 mg PO DAILY 12/14/17 [History Last Taken 12/08/18] ropinirole 0.5 mg PO QHS 09/27/18 [History Last Taken 12/07/18] levothyroxine 75 mcg PO DAILY@0600 12/18/19 [History Last Taken Unknown] divalproex 750 mg PO BID 03/02/20 [History Last Taken Unknown] pantoprazole 40 mg PO DAILY 03/02/20 [History Last Taken Unknown] acetaminophen 650 mg PO Q6H PRN PRN tab 04/28/20 [Rx Last Taken Unknown] doxepin 3 mg PO QHS 04/28/20 [History Last Taken Unknown] mirabegron 50 mg PO DAILY 04/28/20 [History Last Taken Unknown] multivitamin 1 ea PO DAILY 04/28/20 [History Last Taken Unknown] albuterol sulfate 90 mcg/actuation aerosol inhaler 2 puff INHALATION Q6H PRN #18 g 10/06/20 [Rx Last Taken Unknown] erenumab-aooe 70 mg/mL subcutaneous auto-injector 70 mg SUBCUT QMONTH 04/27/21 [History Last Taken Unknown] budesonide 160 mcg-glycopyr 9 mcg-formot 4.8 mcg/actuation HFA inhaler 2 inh INHALATION BID #3 each 09/02/21 [Rx Last Taken Unknown] azithromycin [Zithromax] 500 mg PO DAILY 10/22/21 [History Last Taken Unknown] budesonide-formoterol [Symbicort] INHALATION 10/22/21 [History Last Taken Unknown] nabumetone 500 mg PO BID 10/22/21 [History Last Taken Unknown] rizatriptan 10 mg PO X1 PRN 10/22/21 [History Last Taken Unknown] oxycodone-acetaminophen 1 tab PO Q6H PRN PRN 5 Days #20 tablet 10/23/21 [Rx Last Taken Unknown] Allergy/AdvReac Type Severity Reaction Status Date / Time Sulfa (Sulfonamide AdvReac Intermediate Other - Verified 10/05/21 12:47 Antibiotics) Messes with blood counts prochlorperazine edisylate AdvReac Mild Other - Verified 10/05/21 12:47 [From Compazine] Restless legs prochlorperazine maleate AdvReac Mild Other - Verified 10/05/21 12:47 [From Compazine] Restless legs Family History Mother Hypertension CVA (cerebral vascular accident) Father CVA (cerebral vascular accident) Hypertension Sister Colon cancer Grandfather Hypertension Heart disease Surgical History Cochlear implant in place H/O adenoidectomy H/O: hysterectomy History of cataract surgery History of cholecystectomy History of lung biopsy Hx of appendectomy Hx of left knee surgery lipoma removal vocal nodules removed Social History Smoking Status: Heavy Smoker (>10/day) Tobacco: How many years used: 48 second hand exposure: No alcohol intake: never substance use type: does not use ROS ROS ED Constitutional Constitutional ED: Denies chills, fever(s) or weight loss Eyes Eyes: Denies change in vision or diplopia ENT ENT ED: Denies ear pain, rhinorrhea or sore throat Cardiovascular Cardiovascular: Reports chest pain; Denies orthopnea, palpitations or racing heartbeat Respiratory/Chest Respiratory/Chest: Denies cough, dyspnea or orthopnea Gastrointestinal Gastrointestinal: Denies abdominal pain, diarrhea, nausea or vomiting Genitourinary Genitourinary ED: Denies dysuria, hematuria or urinary frequency Musculoskeletal Musculoskeletal: Denies arthralgias or myalgias Integumentary Denies abscess or rash Neurologic Neurologic: Denies headache(s) or weakness Psychiatric Psychiatric: Denies anxiety, depression, suicidal ideation or suicidal thoughts Endocrine Endocrinology: Denies polydipsia, polyphagia or polyuria Allergic/Immunologic Allergic/Immunologic ED: Denies mouth swelling, tongue swelling or urticaria EXAM Physical Exam Const Vital Signs: 10/22/21 19:24 10/22/21 23:21 Temperature 97.4 F L 98.5 F Temperature Source Temporal Oral Pulse Rate 90 96 Respiratory Rate 16 22 H Blood Pressure 128/67 H 104/65 Blood Pressure Mean 87 78 Pulse Ox 95 90 Oxygen Delivery Method Room Air Room Air Positive well nourished and well developed General Appearance ED: well developed HEENT Reports normocephalic, head/scalp atraumatic, TM's clear and moist mucous membranes normocephalic and atraumatic Tympanic Membrane ED: Yes TM's clear Eyes PERRL and EOMs intact bilaterally Neck no lymphadenopathy, supple and no JVD Chest Wall Chest Narrative: Mild tenderness to palpation of the posterior aspect of the right ribs (about rib 8-10). I do not see any rashes Resp normal respiratory effort and clear to auscultation bilaterally Cardio regular rate, regular rhythm and no murmurs GI normal to inspection, nondistended, normoactive bowel sounds and non-tender Palpation: soft Back/Spine no CVA tenderness and normal ROM Extremity normal to inspection General Extremety ED: Negative for edema General Extremity: Negative for edema Neuro oriented x3 and CN's II-XII intact bilaterally Sensorium / Orientation: alert Motor Exam: strength 5/5 throughout Psych mental status grossly normal Mood & Affect: Negative for depressed or tearful Skin no rashes or lesions noted and no wounds MDM MDM MDM Narrative Medical decision making narrative: White count 11.1 with a platelet count of 193. D-dimer is elevated at 7.85. CMP shows alk phos of 587 and a troponin of 5. My interpretation of the rib series obtained through nursing protocol is no acute fracture. Because of the elevated D-dimer a CTA of the chest was obtained. No pulmonary embolism or fracture was noted. At this point I do not have a clear etiology for the patient's rib pain. She has no pain in the abdomen. Labs are reassuring. I can write for some pain medication for her and would recommend early follow-up or returning to emergency if worsening or concerns Lab Data Attestation: I reviewed the patient's lab results. Labs: Laboratory Results - last 24 hr 10/22/21 10/22/21 10/22/21 21:25 21:25 21:25 WBC 11.1 H RBC 3.83 L Hgb 12.7 Hct 39.2 MCV 102.3 H MCH 33.2 H MCHC 32.4 RDW Std Deviation 66.7 H RDW Coeff of Clement 17.7 H Plt Count 193 MPV 9.5 Immature Gran % (Auto) 1.200 H Neut % (Auto) 82.2 H Lymph % (Auto) 8.1 L [place] % (Auto) 6.6 Eos % (Auto) 1.4 Baso % (Auto) 0.5 Absolute Neuts (auto) 9.1 H Absolute Lymphs (auto) 0.90 Nucleated RBC % 0 Differential Comment SCANNED Hypochromasia RARE Anisocytosis 1+ Target Cells RARE D-Dimer Quant (PE/DVT) 7.85 H* Sodium 138 Potassium 4.1 Chloride 109 H Carbon Dioxide 26.0 Anion Gap 3 L BUN 20 H Creatinine 0.52 L Estim Creat Clear Calc 34.98 Est GFR (MDRD) Af Amer 151 Est GFR (MDRD) Non-Af 125 BUN/Creatinine Ratio 38.8 H Glucose 73 L Calcium 8.3 L Total Bilirubin 0.60 AST 51 H ALT 25 Alkaline Phosphatase 587 H Troponin I High Sens 5 Total Protein 7.1 Albumin 2.4 L Globulin 4.7 H Albumin/Globulin Ratio 0.5 L Radiography Diagnostic Testing: Clinical Impression(s) from Imaging Studies Ribs w/Chest X-Ray 10/22/21 19:30 IMPRESSION: No acute findings in the chest or right ribs. Electronically Signed: Chris Mata MD at 19:58 EDT , Chest CTA 10/22/21 22:21 IMPRESSION: 1. Emphysema. 2. No change in the small right upper lobe nodule. 3. Persistent consolidation in the right posterior costophrenic sulcus similar to the prior examination dated 09/21/2021. 4. Small peripheral areas of opacification left lung base posteriorly unchanged since the prior exam 09/21/2021. Electronically Signed: Josh Salinas MD at 0:00 EDT , EKG Initial EKG: Attestation: I personally reviewed and interpreted this EKG as follows: Comments: Normal sinus rhythm with a ventricular rate of 92 bpm. No concerning features of ACS noted Discharge Plan Triage Chief Complaint: Chest Other ED Provider: Chato Allen Dx/Rx/DC Orders Clinical Impression: Chest pain Instructions: ED Chest Pain, Uncertain Cause Prescriptions: New oxycodone-acetaminophen [oxycodone-acetaminophen] 1 TABLET tablet 1 tab PO Q6H PRN PRN (Reason: pain) 5 Days Qty: 20 RF: 0 No Action albuterol sulfate [Ventolin HFA] 90 mcg/actuation HFA aerosol inhaler 2 puff INHALATION Q6H PRN (Reason: shortness of breath or wheezing) Qty: 18 RF: 3 Aimovig Autoinjector 70 mg/mL auto-injector 70 mg subcut QMONTH RF: 0 sertraline 50 MG tablet 100 mg PO DAILY RF: 0 ropinirole 0.5 MG tablet 0.5 mg PO QHS RF: 0 levothyroxine 100 MCG tablet 75 mcg PO DAILY@0600 RF: 0 pantoprazole 20 MG tablet 40 mg PO DAILY RF: 0 divalproex 500 MG tablet extended release 24 hr 750 mg PO BID RF: 0 multivitamin 1 EACH tablet 1 ea PO DAILY RF: 0 doxepin 3 MG tablet 3 mg PO QHS RF: 0 mirabegron 25 MG tablet extended release 24 hr 50 mg PO DAILY RF: 0 acetaminophen 325 MG tablet 650 mg PO Q6H PRN PRN (Reason: Pain Score 1-10/Temp > 100.7 F) RF: 0 rizatriptan 10 mg tablet 10 mg PO X1 PRN (Reason: Migraine Headache) RF: 0 nabumetone 500 mg Tablet 500 mg PO BID RF: 0 azithromycin [Zithromax] 500 mg tablet 500 mg PO DAILY RF: 0 budesonide-formoterol [Symbicort] 160-4.5 mcg/actuation HFA aerosol inhaler INHALATION RF: 0 Breztri Aerosphere 160-9-4.8 mcg/actuation HFA aerosol inhaler 2 inh INHALATION BID Qty: 3 RF: 3 Primary Care Provider: Todd De Leon Referrals: Todd De Leon DO [Primary Care Provider] - 3-5 Days if not improving Disposition Disposition: Home, Self Care Discharge Date/Time: 10/23/21 00:41
[2021-10-22 21:37] LABS: Absolute Neutrophil Count 9.1 X10^3/uL (2.0-7.7); Basophil# 0.06 X10^3/uL; Basophil% 0.5 % (0-1); Eosinophil# 0.15 X10^3/uL; Eosinophils% 1.4 % (0-5); Hematocrit 39.2 % (37-47); Hemoglobin 12.7 g/dL (12.0-15.0); Lymphocyte % 8.1 % (19-41); Mean Corp Hgb Conc 32.4 g/dL (32-36); Mean Corpuscular Hgb 33.2 pg (27.0-32.0); Mean Corpuscular Volume 102.3 fL (81-99); Mean Platelet Vol. 9.5 fl (6.2-12.0); Monocyte# 0.73 X10^3/uL; Monocyte% 6.6 % (0-10); NRBC Flagged by Analyzer 0 % (0-5); Neutrophil # 9.13 X10^3/uL (2.7-7.7); Neutrophil % 82.2 % (47-70); POSITIVE MORPHOLOGY YES; Platelet Count 193 K/mm3 (150-450); RBC Distribution Width CV 17.7 % (11.6-14.6); RBC Distribution Width SD 66.7 fl (35.1-43.9); Red Blood Count 3.83 M/mm3 (4.2-5.4); White Blood Count 11.1 K/mm3 (4.4-11.0)
[2021-10-22] MEDS: Ondansetron 4 MG/2 ML Vial IV (21:37)
[2021-10-22] MEDS: Morphine 4 MG/ML Syringe IV (21:38)
[2021-10-22 21:41] LABS: Differential Indicated SCAN CRITERIA MET
[2021-10-22 22:04] LABS: ALB/GLOB Ratio 0.5 RATIO (0.9-2.4); AST(SGOT) 51 U/L (15-37); Alanine Aminotransfer ALT/SGPT 25 U/L (13-56); Albumin, Serum 2.4 g/dL (3.2-5.0); Alkaline Phosphatase 587 U/L (45-117); Anion Gap 3 (5-15); BUN 20 mg/dL (7-18); BUN/Creat Ratio 38.8 RATIO (10-20); Calcium,Total 8.3 mg/dL (8.5-10.1); Chloride 109 mmol/L (98-107); Creatinine, Serum 0.52 mg/dL (0.55-1.02); EST Glomerular Filtration Rate 125 mL/min (>60); Est Glom Filt Rate - Afr Amer 151 mL/min (>60); Estimated Creatinine Clearance 34.98 ml/min; Globulin 4.7 g/dL (2.2-4.2); Glucose 73 mg/dL (74-106); Potassium 4.1 mmol/L (3.5-5.1); Protein, Total 7.1 g/dL (6.4-8.2); Sodium Level 138 mmol/L (136-145); Troponin-I HS 5 pg/mL (3.0-54.0)
[2021-10-22 22:17] LABS: D-Dimer Quantitative (DVT/PE) 7.85 FEU/ug/m (0.27-0.49)
--- NOTE | 2021-10-22 22:21 | CT_ITS ---
EXAM: CT ANGIOGRAPHY CHEST WITHOUT AND WITH INTRAVENOUS CONTRAST CLINICAL INDICATION: pulmonary embolism, elevated d-dimer TECHNIQUE: Helically acquired angiography images were obtained of the chest without and with intravenous contrast. This CT exam was performed using one or more of the following dose reduction techniques: automated exposure control, adjustment of the mA and/or kV according to patient size, and/or use of iterative reconstruction technique. This report was created using [employer] report generation technology. MIP reconstructed images were created and reviewed. CONTRAST: IV 75mL [id number] RADIATION DOSE: CTDIvol = 7.77 mGy, DLP = 198.02 mGy-cm. COMPARISON: Noncontrast chest CT 09/21/2021. CT angiogram of the chest 04/28/2020. FINDINGS: PULMONARY ARTERIES: No PE or dissection. AORTA: Unremarkable. Normal in caliber. No evidence of dissection. GREAT VESSELS OF AORTIC ARCH: Unremarkable. Normal in caliber. No evidence of dissection. LUNGS AND PLEURAL SPACES: Emphysema. No change in the small right upper lobe nodule. Persistent consolidation in the right posterior costophrenic sulcus similar to the prior examination dated 09/21/2021. Small peripheral areas of opacification left lung base posteriorly unchanged since the prior exam 09/21/2021. No pleural effusion or thickening. No pneumothorax. HEART: Unremarkable. Heart size is normal. No pericardial effusion. No signs of right heart strain, ratio of right ventricle to left ventricle measures less than 1. MEDIASTINUM: Unremarkable. No mediastinal or hilar adenopathy. Esophagus is unremarkable. No hiatal hernia. THYROID: Unremarkable. No thyroid lesions. BONES/JOINTS: Unremarkable. No suspicious lytic or blastic abnormality. CT/CTA Chest W/WO Contrast IMPRESSION: 1. Emphysema. 2. No change in the small right upper lobe nodule. 3. Persistent consolidation in the right posterior costophrenic sulcus similar to the prior examination dated 09/21/2021. 4. Small peripheral areas of opacification left lung base posteriorly unchanged since the prior exam 09/21/2021. Electronically Signed: Josh Salinas MD at 0:00 EDT ,
[2021-10-22 22:37] LABS: Anisocytosis 1+; Differential Comment SCANNED; Hypochromasia RARE
[2021-10-22 22:38] LABS: Target Cells RARE
[2021-10-22 23:21] VITALS: BP 104/65; PULSE 96; RESP 22; TEMP 36.9; O2SAT 90
[2021-10-23 00:12] LABS: Bacteria 0 SEEN /hpf (None Seen); Mucous, Urine 0 SEEN /hpf (<or=2+); Red Blood Cells-Urine 0 SEEN /hpf (0-5)
[2021-10-23 00:13] LABS: Color, Urine Yellow (Yellow); Glucose, Dipstick Normal (Normal); Ketone-Dipstick 5 mg/dl (Negative); Leukocyte Esterase-Dipstick 25 /ul (Negative); Nitrite-Dipstick Negative (Negative); Occult Blood-Urine Negative /ul (Negative); Protein-Dipstick 15 mg/dl (Negative); Specific Gravity, Urine 1.005 (1.002-1.030); Urine Bilirubin Dipstick Negative (Negative); Urine Clarity Clear (Clear); Urine Urobilinogen 1 mg/dl (Normal)
[2021-10-23] MEDS: Ketorolac 15 MG/ML Vial IV (00:25)
[2021-10-23 00:28] VITALS: BP 113/71; PULSE 75; RESP 18; O2SAT 92
[2021-10-23 00:42] LABS: Squamous Epithelial Cells - UA 0-5 SEEN /hpf (5-10); White Blood Cells 0-5 SEEN /hpf (0-5)
== END 2021-10-23 00:41 | disposition home or self-care (01) ==
PROVIDERS: Emergency Provider Emergency Medicine; PCP Family Medicine; Visit Provider Emergency Medicine
DX: R07.9 Chest pain, unspecified (principal); J44.9 Chronic obstructive pulmonary disease, unspecified; F17.200 Nicotine dependence, unspecified, uncomplicated; G47.33 Obstructive sleep apnea (adult) (pediatric); F41.9 Anxiety disorder, unspecified; F32.A Depression, unspecified; E03.9 Hypothyroidism, unspecified; Z79.899 Other long term (current) drug therapy
CPT/HCPCS: 36591; 71101; 71275; 80053; 81001; 84484; 85025; 85379; 93005; 96374; 96375; 99284; Q9967; A4216; J2405

== ENCOUNTER 2021-11-03 15:36 | Emergency (ER) | payer MEDICARE, MEDICAID, SELFPAY ==
[2021-11-03 15:38] VITALS: BP 111/60; PULSE 81; RESP 18; TEMP 37.1; O2SAT 95; BMI 15.6
--- NOTE | 2021-11-03 16:38 | ED.VIS.CHEST ---
HPI History of Present Illness Chief Complaint: Abd Pain Informant: patient and family Onset/Context/Timing Onset: Days (10) Activity at onset: gradual and onset Timing: Continuous Quality: Positive for Aching Location: Right Chest (and ribcage into back) Current Severity: Severe Maximum Severity: Severe Worsened By: Movement of Torso, Palpation and Breathing Relieved By: Rest, Narcotics and - (lidocaine patches) Associated Symptoms: Positive for Dyspnea (as usual); Negative for Nausea, Vomiting, Diaphoresis, Cough, Fever and Lightheadedness Narrative Narrative: Patient presents with the same and discomfort in her right rib cage that she had when she was here a week ago. She had a thorough work-up including CT angiography of the chest that showed no evidence of pulmonary embolus. She is treated symptomatically with pain medication which works when she takes it but the pain is still severe and has been persistent. She denies any new symptoms. When asked that she is dyspneic she states I am always short of breath as she has COPD, pulmonary fibrosis, and still smokes. She denies any new abdominal/GI symptoms, leg swelling or radiation, cough, or fevers/chills. [facility] Medical History (Updated 11/03/21 @ 20:[address] Chidi Schroeder MD) Acute delirium Acute respiratory failure Adrenal insufficiency Anxiety Bronchitis Carpal tunnel syndrome Cataract Chronic back pain COPD (chronic obstructive pulmonary disease) COPD with acute exacerbation Depression Gallstones HTN (hypertension) Hypersomnia Hypotension Hypothyroidism Leukocytosis Migraine Mild diastolic dysfunction MRSA pneumonia RENNY (obstructive sleep apnea) Osteopenia Presbycusis of both ears Pulmonary fibrosis Respiratory failure with hypercapnia Restless leg Septic shock Solitary pulmonary nodule Stage 2 moderate COPD by GOLD classification Tobacco abuse UTI (urinary tract infection) Home Medications sertraline 100 mg PO DAILY 12/14/17 [History Last Taken 12/08/18] ropinirole 0.5 mg PO QHS 09/27/18 [History Last Taken 12/07/18] levothyroxine 75 mcg PO DAILY@0600 12/18/19 [History Last Taken Unknown] divalproex 750 mg PO BID 03/02/20 [History Last Taken Unknown] pantoprazole 40 mg PO DAILY 03/02/20 [History Last Taken Unknown] acetaminophen 650 mg PO Q6H PRN PRN tab 04/28/20 [Rx Last Taken Unknown] doxepin 3 mg PO QHS 04/28/20 [History Last Taken Unknown] mirabegron 50 mg PO DAILY 04/28/20 [History Last Taken Unknown] multivitamin 1 ea PO DAILY 04/28/20 [History Last Taken Unknown] albuterol sulfate 90 mcg/actuation aerosol inhaler 2 puff INHALATION Q6H PRN #18 g 10/06/20 [Rx Last Taken Unknown] erenumab-aooe 70 mg/mL subcutaneous auto-injector 70 mg SUBCUT QMONTH 04/27/21 [History Last Taken Unknown] budesonide 160 mcg-glycopyr 9 mcg-formot 4.8 mcg/actuation HFA inhaler 2 inh INHALATION BID #3 each 09/02/21 [Rx Last Taken Unknown] azithromycin [Zithromax] 500 mg PO DAILY 10/22/21 [History Last Taken Unknown] budesonide-formoterol [Symbicort] INHALATION 10/22/21 [History Last Taken Unknown] nabumetone 500 mg PO BID 10/22/21 [History Last Taken Unknown] rizatriptan 10 mg PO X1 PRN 10/22/21 [History Last Taken Unknown] oxycodone-acetaminophen 1 tab PO Q6H PRN PRN 5 Days #20 tablet 10/23/21 [Rx Last Taken Unknown] amoxicillin-pot clavulanate 875 mg PO Q12H #20 tablet 11/03/21 [Rx Last Taken Unknown] oxycodone-acetaminophen 1 tab PO Q4H PRN 3 Days #18 tablet 11/03/21 [Rx Last Taken Unknown] Allergy/AdvReac Type Severity Reaction Status Date / Time Sulfa (Sulfonamide AdvReac Intermediate Other - Verified 11/03/21 15:39 Antibiotics) Messes with blood counts prochlorperazine edisylate AdvReac Mild Other - Verified 11/03/21 15:39 [From Compazine] Restless legs prochlorperazine maleate AdvReac Mild Other - Verified 11/03/21 15:39 [From Compazine] Restless legs Family History Mother Hypertension CVA (cerebral vascular accident) Father CVA (cerebral vascular accident) Hypertension Sister Colon cancer Grandfather Hypertension Heart disease Surgical History (Reviewed 11/03/21 @ 16:58 by Sachin Stapleton Cochlear implant in place H/O adenoidectomy H/O: hysterectomy History of cataract surgery History of cholecystectomy History of lung biopsy Hx of appendectomy Hx of left knee surgery lipoma removal vocal nodules removed Social History Smoking Status: Heavy Smoker (>10/day) Tobacco: How many years used: 48 second hand exposure: No alcohol intake: never substance use type: does not use ROS ROS ED Constitutional Constitutional ED: Denies chills or fever(s) Eyes Eyes: Denies change in vision or diplopia ENT ENT ED: Denies rhinorrhea or sore throat Cardiovascular Cardiovascular: Reports as per HPI and chest pain; Denies palpitations Respiratory/Chest Respiratory/Chest: Reports as per HPI and dyspnea; Denies cough Gastrointestinal Gastrointestinal: Denies abdominal pain, diarrhea, nausea or vomiting Genitourinary Genitourinary ED: Denies dysuria or hematuria Musculoskeletal Musculoskeletal: Denies back pain or neck pain Integumentary Denies abscess or rash Neurologic Neurologic: Denies headache(s), paresthesias or weakness Psychiatric Psychiatric: Denies anxiety or suicidal thoughts EXAM Physical Exam Const Vital Signs: 11/03/21 15:38 11/03/21 18:06 11/03/21 20:13 Temperature 98.8 F Temperature Source Temporal Pulse Rate 81 86 79 Respiratory Rate 18 21 H 13 Blood Pressure 111/60 129/61 H Blood Pressure Mean 77 83 Pulse Ox 95 95 97 Oxygen Delivery Method Room Air Room Air Positive well nourished and well developed General Appearance ED: well developed and NAD HEENT Reports moist mucous membranes normocephalic and atraumatic Eyes PERRL and EOMs intact bilaterally Neck full ROM and supple Chest Wall Chest Narrative: Normal appearance of chest wall, no rash. Tender throughout the affected area in the right lateral rib cage and posteriorly from about the tip of the scapula down to the 11th rib all on the right. No midline tenderness. Resp Resp Narrative: Diffusely diminished but symmetrically. End expiratory wheezes, prolonged expiratory phase, trachea midline, no respiratory distress. Cardio regular rate, regular rhythm and no murmurs GI non-tender and non-distended Auscultation: normoactive bowel sounds Palpation: soft Back/Spine no CVA tenderness General Back: other FROM Extremity normal to inspection General Extremety ED: Negative for edema, pulses abnormal or tenderness General Extremity: Negative for edema or pulses abnormal Neuro oriented x3, CN's II-XII intact bilaterally and no sensory deficits noted Sensorium / Orientation: awake and alert Motor Exam: strength 5/5 throughout Skin no rashes or lesions noted and no wounds MDM MDM MDM Narrative Medical decision making narrative: Patient has CT of the chest last week, it showed small peripheral opacification in the left lung base as well as a consolidation in the right posterior costophrenic sulcus, the latter which could explain the patient's symptoms, both of which were also seen on a scan about a month prior, when the patient was not having pain. Her white blood count is lower now than it was. It is unknown if this represents acute infection versus scarring from her pulmonary fibrosis. She has had no antibiotics since her pain started and I think it is reasonable to treat her empirically so I started her on Augmentin. I did a chest x-ray, it showed no acute abnormalities 1 view on my interpretation except for chronic scarring and hyperexpansion, radiologist was in agreement. Her urine showed no blood, but since she did not have imaging of her abdomen/pelvis, I performed that here as well. I discussed the findings with her including the areas in the liver that are concerning for metastases. She does not have cancer that she knows of, but we specifically discussed the possibility this could be some type of cancer, including colon. She states she has never had a colonoscopy but her sister of colon cancer. At this time I will refer her to her PCP and treat her with analgesics as we did here, and antibiotics. They are comfortable with this plan. Lab Data Attestation: I reviewed the patient's lab results. Labs: Laboratory Results - last 24 hr 11/03/21 11/03/21 11/03/21 16:50 16:50 17:45 WBC 9.1 RBC 3.74 L Hgb 12.3 Hct 38.0 MCV 101.6 H MCH 32.9 H MCHC 32.4 RDW Std Deviation 69.7 H RDW Coeff of Clement 18.5 H Plt Count 134 L MPV 10.2 Immature Gran % (Auto) 1.600 H Neut % (Auto) 81.5 H Lymph % (Auto) 7.8 L Piute % (Auto) 8.0 Eos % (Auto) 0.7 Baso % (Auto) 0.4 Absolute Neuts (auto) 7.5 Absolute Lymphs (auto) 0.71 L Nucleated RBC % 0 Platelet Estimate SLT DEC Ovalocytes 1+ Sodium 138 Potassium 4.6 Chloride 109 H Carbon Dioxide 23.0 Anion Gap 6 BUN 27 H Creatinine 0.62 Estim Creat Clear Calc 39.16 Est GFR (MDRD) Af Amer 124 Est GFR (MDRD) Non-Af 102 BUN/Creatinine Ratio 43.9 H Glucose 58 L Calcium 8.6 Total Bilirubin 1.50 H AST 80 H ALT 27 Alkaline Phosphatase 575 H Troponin I High Sens 4 Total Protein 7.1 Albumin 2.4 L Globulin 4.7 H Albumin/Globulin Ratio 0.5 L Urine Color Yellow Urine Clarity Clear Urine pH 6.0 Ur Specific Stowell 1.015 Urine Protein 30 H Urine Glucose (UA) Normal Urine Ketones 50 H Urine Occult Blood Negative Urine Nitrite Negative Urine Bilirubin 1 H Urine Urobilinogen 4 H Ur Leukocyte Esterase 25 H Urine RBC 0 SEEN Urine WBC 0-5 SEEN Ur Squamous Epith Cells 0 SEEN Urine Bacteria RARE Urine Mucus 0 SEEN Radiography Diagnostic Testing: Clinical Impression(s) from Imaging Studies Chest X-Ray 11/03/21 17:26 IMPRESSION: No acute radiographic abnormalities. Chronic interstitial lung changes. Electronically Signed: Timoteo Schumacher MD at 17:44 EDT , Abdomen/Pelvis CT 11/03/21 19:11 IMPRESSION: (NOT LISTED IN ORDER OF SIGNIFICANCE) Right lower lobe pneumonia. Underlying mass is difficult to exclude. Developing left lower lobe pneumonia. There are multiple lesions noted in the liver which are likely related to metastatic disease. There are bilateral renal calculi. There is no evidence for an obstruction. There is no hydronephrosis. Other findings as above. NSC findings protocol was initiated. Electronically Signed: Chris Mata MD at 20:05 EDT , ADDENDUM: 11/03/212046 IMPRESSION: (NOT LISTED IN ORDER OF SIGNIFICANCE) Right lower lobe pneumonia. Underlying mass is difficult to exclude. Developing left lower lobe pneumonia. There are multiple lesions noted in the liver which are likely related to metastatic disease. There are bilateral renal calculi. There is no evidence for an obstruction. There is no hydronephrosis. Other findings as above. NSC findings protocol was initiated. N.B. : Chidi Lynch MD, confirmed on 11/03/2021 20:40:19 (ET) that the healthcare facility has received the radiology report. Electronically Signed: Chris Mata MD at 20:05 EDT , Discharge Plan Triage Chief Complaint: Abd Pain ED Provider: Chidi Schroeder Dx/Rx/DC Orders Clinical Impression: Acute right flank pain, Pneumonia, Liver metastases, Bilateral nephrolithiasis Instructions: ED Pneumonia (Adult), ED Tumor, Uncertain Cause Prescriptions: New oxycodone-acetaminophen [oxycodone-acetaminophen] 1 TABLET tablet 1 tab PO Q4H PRN (Reason: Pain) 3 Days Qty: 18 RF: 0 amoxicillin-pot clavulanate [amoxicillin-pot clavulanate] 875 MG tablet 875 mg PO Q12H Qty: 20 RF: 0 No Action albuterol sulfate [Ventolin HFA] 90 mcg/actuation HFA aerosol inhaler 2 puff INHALATION Q6H PRN (Reason: shortness of breath or wheezing) Qty: 18 RF: 3 Aimovig Autoinjector 70 mg/mL auto-injector 70 mg subcut QMONTH RF: 0 sertraline 50 MG tablet 100 mg PO DAILY RF: 0 ropinirole 0.5 MG tablet 0.5 mg PO QHS RF: 0 levothyroxine 100 MCG tablet 75 mcg PO DAILY@0600 RF: 0 pantoprazole 20 MG tablet 40 mg PO DAILY RF: 0 divalproex 500 MG tablet extended release 24 hr 750 mg PO BID RF: 0 multivitamin 1 EACH tablet 1 ea PO DAILY RF: 0 doxepin 3 MG tablet 3 mg PO QHS RF: 0 mirabegron 25 MG tablet extended release 24 hr 50 mg PO DAILY RF: 0 acetaminophen 325 MG tablet 650 mg PO Q6H PRN PRN (Reason: Pain Score 1-10/Temp > 100.7 F) RF: 0 rizatriptan 10 mg tablet 10 mg PO X1 PRN (Reason: Migraine Headache) RF: 0 nabumetone 500 mg Tablet 500 mg PO BID RF: 0 azithromycin [Zithromax] 500 mg tablet 500 mg PO DAILY RF: 0 budesonide-formoterol [Symbicort] 160-4.5 mcg/actuation HFA aerosol inhaler INHALATION RF: 0 oxycodone-acetaminophen [oxycodone-acetaminophen] 1 TABLET tablet 1 tab PO Q6H PRN PRN (Reason: pain) 5 Days Qty: 20 RF: 0 Breztri Aerosphere 160-9-4.8 mcg/actuation HFA aerosol inhaler 2 inh INHALATION BID Qty: 3 RF: 3 Primary Care Provider: Todd De Leon Referrals: Todd De Leon, DO [Primary Care Provider] - As soon as possible (Call for appointment) Disposition Disposition: Home, Self Care
[2021-11-03] MEDS: Ipratropium/Albuterol Sulfate 3 ML AMPUL.NEB INHALATION (17:02)
[2021-11-03] MEDS: Morphine 4 MG/ML Syringe IV (17:05)
[2021-11-03] MEDS: Ondansetron 4 MG/2 ML Vial IV (17:05)
[2021-11-03 17:20] LABS: Absolute Lymphocyte Count 0.71 X10^3/uL (0.83-4.51); Absolute Neutrophil Count 7.5 X10^3/uL (2.0-7.7); Basophil# 0.04 X10^3/uL; Basophil% 0.4 % (0-1); Eosinophil# 0.06 X10^3/uL; Eosinophils% 0.7 % (0-5); Hemoglobin 12.3 g/dL (12.0-15.0); Lymphocyte # 0.71 X10^3/ul (0.83-4.51); Lymphocyte % 7.8 % (19-41); Mean Corp Hgb Conc 32.4 g/dL (32-36); Mean Corpuscular Hgb 32.9 pg (27.0-32.0); Mean Corpuscular Volume 101.6 fL (81-99); Mean Platelet Vol. 10.2 fl (6.2-12.0); Monocyte# 0.73 X10^3/uL; NRBC Flagged by Analyzer 0 % (0-5); Neutrophil # 7.45 X10^3/uL (2.7-7.7); Neutrophil % 81.5 % (47-70); POSITIVE MORPHOLOGY YES; Platelet Count 134 K/mm3 (150-450); RBC Distribution Width CV 18.5 % (11.6-14.6); RBC Distribution Width SD 69.7 fl (35.1-43.9); Red Blood Count 3.74 M/mm3 (4.2-5.4); White Blood Count 9.1 K/mm3 (4.4-11.0)
[2021-11-03 17:22] LABS: ALB/GLOB Ratio 0.5 RATIO (0.9-2.4); AST(SGOT) 80 U/L (15-37); Alanine Aminotransfer ALT/SGPT 27 U/L (13-56); Albumin, Serum 2.4 g/dL (3.2-5.0); Alkaline Phosphatase 575 U/L (45-117); Anion Gap 6 (5-15); BUN 27 mg/dL (7-18); BUN/Creat Ratio 43.9 RATIO (10-20); Calcium,Total 8.6 mg/dL (8.5-10.1); Chloride 109 mmol/L (98-107); Creatinine, Serum 0.62 mg/dL (0.55-1.02); EST Glomerular Filtration Rate 102 mL/min (>60); Est Glom Filt Rate - Afr Amer 124 mL/min (>60); Estimated Creatinine Clearance 39.16 ml/min; Globulin 4.7 g/dL (2.2-4.2); Glucose 58 mg/dL (74-106); Potassium 4.6 mmol/L (3.5-5.1); Protein, Total 7.1 g/dL (6.4-8.2); Sodium Level 138 mmol/L (136-145); Troponin-I HS 4 pg/mL (3.0-54.0)
--- NOTE | 2021-11-03 17:26 | RAD_ITS ---
INDICATION: right chest/thorax pain EXAMINATION/TECHNIQUE: X-RAY - XR Chest 2 Views COMPARISON: 10/22/2021. FINDINGS: There are chronic lung changes. Tortuous and calcified thoracic aorta. The heart is not enlarged. Right-sided chest port. No pleural effusion or pneumothorax. Degenerative changes of the thoracic spine. RAD/Chest PA and Lateral IMPRESSION: No acute radiographic abnormalities. Chronic interstitial lung changes. Electronically Signed: Timoteo Schumacher MD at 17:44 EDT ,
[2021-11-03 17:31] LABS: Differential Indicated SCAN CRITERIA MET
[2021-11-03 17:54] LABS: Mucous, Urine 0 SEEN /hpf (<or=2+); Red Blood Cells-Urine 0 SEEN /hpf (0-5); Squamous Epithelial Cells - UA 0 SEEN /hpf (5-10)
[2021-11-03 17:56] LABS: Color, Urine Yellow (Yellow); Glucose, Dipstick Normal (Normal); Ketone-Dipstick 50 mg/dl (Negative); Leukocyte Esterase-Dipstick 25 /ul (Negative); Nitrite-Dipstick Negative (Negative); Occult Blood-Urine Negative /ul (Negative); Protein-Dipstick 30 mg/dl (Negative); Specific Gravity, Urine 1.015 (1.002-1.030); Urine Clarity Clear (Clear); Urine Urobilinogen 4 mg/dl (Normal)
[2021-11-03 18:06] VITALS: PULSE 86; RESP 21; O2SAT 95
[2021-11-03 18:16] LABS: Ovalocyte 1+; Platelet Estimate SLT DEC (ADEQ)
[2021-11-03 18:30] LABS: Urine Bilirubin Dipstick 1 mg/dL (Negative)
[2021-11-03 18:34] LABS: Bacteria RARE /hpf (None Seen); White Blood Cells 0-5 SEEN /hpf (0-5)
--- NOTE | 2021-11-03 19:11 | CT_ITS ---
ACR Level 3 findings have been noted. An addendum which confirms receipt of the report will follow. STUDY: CT Abdomen And Pelvis W/O Contrast Injection 11/03/2021 8:00 PM REASON FOR EXAM: Female, 71 years old. R flank pain TECHNIQUE: Transaxial images were obtained without oral contrast, and without intravenous contrast. Individualized dose optimization techniques were used for this CT. COMPARISON: 10.22.21 ct chest FINDINGS: There are atherosclerotic calcifications of visualized coronary arteries. Right lower lobe pneumonia. Underlying mass is difficult to exclude. Developing left lower lobe pneumonia. There are multiple lesions noted in the liver which are likely related to metastatic disease. Unremarkable gallbladder and extrahepatic biliary system. Unremarkable spleen. Unremarkable pancreas. Unremarkable bilateral adrenal glands. Non obstructive 2 mm right renal parenchymal stones. Non obstructive 3.2 mm left renal parenchymal stones. Unremarkable visualized stomach. Unremarkable small intestine. There are multiple colonic diverticula consistent with diverticulosis. There is non-visualization of the appendix. There are no acute findings of the abdominal aorta. Unremarkable inferior vena cava. Subcentimeter mesenteric lymph nodes. Unremarkable urinary bladder. There is absence of the uterus consistent with a prior hysterectomy. Unremarkable abdominal wall. There are diffuse degenerative changes of the visualized lumbar spine. There is scoliosis of the lumbar spine. CT/Abdomen/Pelvis without Cont IMPRESSION: (NOT LISTED IN ORDER OF SIGNIFICANCE) Right lower lobe pneumonia. Underlying mass is difficult to exclude. Developing left lower lobe pneumonia. There are multiple lesions noted in the liver which are likely related to metastatic disease. There are bilateral renal calculi. There is no evidence for an obstruction. There is no hydronephrosis. Other findings as above. NSC findings protocol was initiated. Electronically Signed: Chris Mata MD at 20:05 EDT ,
[2021-11-03 20:13] VITALS: BP 129/61; PULSE 79; RESP 13; O2SAT 97
[2021-11-03] MEDS: Amox/Clavulanate 875 MG Tablet PO (20:57)
[2021-11-03] MEDS: oxyCODONE 5 MG Tablet PO (20:57)
[2021-11-03 20:58] VITALS: BP 115/67; PULSE 89; RESP 18; O2SAT 97
== END 2021-11-03 21:03 | disposition home or self-care (01) ==
PROVIDERS: Emergency Provider Emergency Medicine; PCP Family Medicine; Visit Provider Emergency Medicine
DX: R10.9 Unspecified abdominal pain (principal); C78.7 Secondary malignant neoplasm of liver and intrahepatic bile duct; J18.9 Pneumonia, unspecified organism; F17.200 Nicotine dependence, unspecified, uncomplicated; G47.33 Obstructive sleep apnea (adult) (pediatric)
CPT/HCPCS: 36591; 71046; 74176; 80048; 80053; 81001; 84484; 85025; 96374; 96375; 98960; 99285; A4216; G0463; J2405

== ENCOUNTER → 2021-11-03 | Outpatient (CLI) | payer MEDICARE, MEDICAID, SELFPAY | END | disposition home or self-care (01) | LOC: SL 12:17 | PROVIDERS: PCP Family Medicine; Visit Provider Internal Medicine Critical Care Medicine | DX: G47.33 Obstructive sleep apnea (adult) (pediatric) (principal) | CPT/HCPCS: 98960; G0463 ==

== ENCOUNTER → 2021-11-09 | Outpatient (CLI) | payer MEDICARE, MEDICAID, SELFPAY ==
[2021-11-11 10:35] LABS: Carbohydrate AG 19-9 149 U/mL (0-35); Carcinoembryonic Antigen 84.4 ng/mL (0.0-4.7)
== END | disposition home or self-care (01) ==
LOC: MEDOUTP 14:20
PROVIDERS: PCP Family Medicine; Referring Provider Family Medicine; Visit Provider Family Medicine
DX: R16.0 Hepatomegaly, not elsewhere classified (principal)
CPT/HCPCS: 36591; 82378; 86301; 86304; A4216

== ENCOUNTER 2021-11-10 12:15 | Emergency (ER) | payer MEDICARE, MEDICAID, SELFPAY ==
[2021-11-10 12:16] VITALS: BP 116/65; PULSE 86; RESP 14; TEMP 37.2; O2SAT 97; BMI 13.5
[2021-11-10] MEDS: 0.9% Normal Saline 1,000 ML 1000 ML IV (12:54)
[2021-11-10] MEDS: Ondansetron 4 MG/2 ML Vial IV (12:54)
[2021-11-10] MEDS: Morphine 4 MG/ML Syringe IV ×2 (12:55→14:13)
[2021-11-10 13:22] LABS: Absolute Lymphocyte Count 1.01 X10^3/uL (0.83-4.51); Basophil# 0.09 X10^3/uL; Basophil% 0.8 % (0-1); Eosinophil# 0.13 X10^3/uL; Eosinophils% 1.1 % (0-5); Hematocrit 37.6 % (37-47); Hemoglobin 12.3 g/dL (12.0-15.0); Lymphocyte # 1.01 X10^3/ul (0.83-4.51); Lymphocyte % 8.7 % (19-41); Mean Corp Hgb Conc 32.7 g/dL (32-36); Mean Corpuscular Hgb 32.6 pg (27.0-32.0); Mean Corpuscular Volume 99.7 fL (81-99); Mean Platelet Vol. 10.6 fl (6.2-12.0); Monocyte# 1.03 X10^3/uL; Monocyte% 8.8 % (0-10); NRBC Flagged by Analyzer 0 % (0-5); Neutrophil # 8.95 X10^3/uL (2.7-7.7); Neutrophil % 76.9 % (47-70); POSITIVE MORPHOLOGY YES; Platelet Count 177 K/mm3 (150-450); Red Blood Count 3.77 M/mm3 (4.2-5.4); White Blood Count 11.6 K/mm3 (4.4-11.0)
[2021-11-10 13:25] LABS: Differential Indicated SCAN CRITERIA MET
[2021-11-10 13:33] LABS: ALB/GLOB Ratio 0.5 RATIO (0.9-2.4); AST(SGOT) 104 U/L (15-37); Alanine Aminotransfer ALT/SGPT 31 U/L (13-56); Albumin, Serum 2.3 g/dL (3.2-5.0); Alkaline Phosphatase 664 U/L (45-117); Anion Gap 6 (5-15); BUN 25 mg/dL (7-18); BUN/Creat Ratio 35.6 RATIO (10-20); Calcium,Total 8.6 mg/dL (8.5-10.1); Chloride 104 mmol/L (98-107); EST Glomerular Filtration Rate 88 mL/min (>60); Est Glom Filt Rate - Afr Amer 106 mL/min (>60); Estimated Creatinine Clearance 33.84 ml/min; Globulin 4.8 g/dL (2.2-4.2); Glucose 77 mg/dL (74-106); Potassium 4.4 mmol/L (3.5-5.1); Protein, Total 7.1 g/dL (6.4-8.2); Sodium Level 134 mmol/L (136-145)
[2021-11-10 13:54] LABS: Anisocytosis RARE
[2021-11-10 14:07] LABS: Bacteria 0 SEEN /hpf (None Seen); Mucous, Urine 0 SEEN /hpf (<or=2+); Red Blood Cells-Urine 0 SEEN /hpf (0-5)
--- NOTE | 2021-11-10 14:11 | EDS_ITS ---
HPI History of Present Illness Chief Complaint: Flank Pain Narrative Narrative: Patient with past medical history of COPD, seizures, CVA, presents with right flank pain that she has had for at least 2 weeks. Her relates history that she was seen in the emergency department and had a CTA of her chest done. She was here last week and had CT of the abdomen and pelvis performed. It was then that they noted liver metastases and possible pneumonia. She was placed on an antibiotic. They state that she has followed up with her primary care physician and is due for colonoscopy. They were also written for pain medications, but today, patient states that the pain is unbearable in her right flank, and requested that her bring her to the emergency department. She denies any fevers or chills. No hematuria or dysuria. No exacerbating or alleviating factors to her right flank pain. They state that she is taking oxycodone without relief. [facility] Medical History (Updated 11/10/21 @ 14:45 by Kevin Don MD) Acute delirium Acute respiratory failure Adrenal insufficiency Anxiety Bronchitis Carpal tunnel syndrome Cataract Chronic back pain COPD (chronic obstructive pulmonary disease) COPD with acute exacerbation Depression Gallstones HTN (hypertension) Hypersomnia Hypotension Hypothyroidism Leukocytosis Migraine Mild diastolic dysfunction MRSA pneumonia RENNY (obstructive sleep apnea) Osteopenia Presbycusis of both ears Pulmonary fibrosis Respiratory failure with hypercapnia Restless leg Septic shock Solitary pulmonary nodule Stage 2 moderate COPD by GOLD classification Tobacco abuse UTI (urinary tract infection) Home Medications sertraline 100 mg PO DAILY 12/14/17 [History Last Taken 12/08/18] ropinirole 0.5 mg PO QHS 09/27/18 [History Last Taken 12/07/18] levothyroxine 75 mcg PO DAILY@0600 12/18/19 [History Last Taken Unknown] divalproex 750 mg PO BID 03/02/20 [History Last Taken Unknown] pantoprazole 40 mg PO DAILY 03/02/20 [History Last Taken Unknown] acetaminophen 650 mg PO Q6H PRN PRN tab 04/28/20 [Rx Last Taken Unknown] doxepin 3 mg PO QHS 04/28/20 [History Last Taken Unknown] mirabegron 50 mg PO DAILY 04/28/20 [History Last Taken Unknown] multivitamin 1 ea PO DAILY 04/28/20 [History Last Taken Unknown] albuterol sulfate 90 mcg/actuation aerosol inhaler 2 puff INHALATION Q6H PRN #18 g 10/06/20 [Rx Last Taken Unknown] erenumab-aooe 70 mg/mL subcutaneous auto-injector 70 mg SUBCUT QMONTH 04/27/21 [History Last Taken Unknown] budesonide 160 mcg-glycopyr 9 mcg-formot 4.8 mcg/actuation HFA inhaler 2 inh INHALATION BID #3 each 09/02/21 [Rx Last Taken Unknown] azithromycin [Zithromax] 500 mg PO DAILY 10/22/21 [History Last Taken Unknown] budesonide-formoterol [Symbicort] INHALATION 10/22/21 [History Last Taken Unknown] nabumetone 500 mg PO BID 10/22/21 [History Last Taken Unknown] rizatriptan 10 mg PO X1 PRN 10/22/21 [History Last Taken Unknown] oxycodone-acetaminophen 1 tab PO Q6H PRN PRN 5 Days #20 tablet 10/23/21 [Rx Last Taken Unknown] amoxicillin-pot clavulanate 875 mg PO Q12H #20 tablet 11/03/21 [Rx Last Taken Unknown] oxycodone-acetaminophen 1 tab PO Q4H PRN 3 Days #18 tablet 11/03/21 [Rx Last Taken Unknown] Allergy/AdvReac Type Severity Reaction Status Date / Time Sulfa (Sulfonamide AdvReac Intermediate Other - Verified 11/10/21 12:16 Antibiotics) Messes with blood counts prochlorperazine edisylate AdvReac Mild Other - Verified 11/10/21 12:16 [From Compazine] Restless legs prochlorperazine maleate AdvReac Mild Other - Verified 11/10/21 12:16 [From Compazine] Restless legs Family History Mother Hypertension CVA (cerebral vascular accident) Father CVA (cerebral vascular accident) Hypertension Sister Colon cancer Grandfather Hypertension Heart disease Surgical History Cochlear implant in place H/O adenoidectomy H/O: hysterectomy History of cataract surgery History of cholecystectomy History of lung biopsy Hx of appendectomy Hx of left knee surgery lipoma removal vocal nodules removed Social History Smoking Status: Heavy Smoker (>10/day) Tobacco: How many years used: 48 second hand exposure: No alcohol intake: never substance use type: does not use ROS ROS ED ROS Narrative Constitutional: No fever, no chills. HEENT: No sore throat. No neck pain. No loss of vision. No rhinorrhea. Cardiovascular: No chest pain. No palpitations. No pedal edema. Respiratory: No cough, no shortness of breath. Abdominal: Right flank/abdominal pain. No nausea. No vomiting. Genitourinary: No dysuria. No hematuria. Musculoskeletal: No myalgias. No arthralgias. Neurologic: No headaches. No dizziness. No lightheadedness. Skin: No rash. No change in color. Psychiatric: No depression. No anxiety. EXAM Physical Exam Narrative Exam Narrative: Afebrile. Vital signs noted. Noted cachexia. HEENT: Normocephalic. Atraumatic. PERRL, EOMI. Neck soft and supple. No point tenderness or step off. Cardiovascular: Regular rate and rhythm. No murmurs, rubs, or gallops appreciated. Respiratory: No tachypnea. Lungs clear to auscultation bilaterally. Gastrointestinal: Abdomen soft, mild tenderness right flank, with normoactive bowel sounds. No rebound or guarding. Neurological: Awake. Alert. Nonfocal, nonlateralizing. Skin: No rash. Normal color. No pallor. Musculoskeletal: No pedal edema. Full range of motion extremities. Const Vital Signs: 11/10/21 12:16 Temperature 98.9 F Temperature Source Temporal Pulse Rate 86 Respiratory Rate 14 Blood Pressure 116/65 Blood Pressure Mean 82 Pulse Ox 97 Oxygen Delivery Method Room Air MDM MDM MDM Narrative Medical decision making narrative: I reviewed the patient's prior records. She was seen here last week and had CT of the abdomen and pelvis performed which was concerning for liver metastasis. There was noted right lower lung lobe consolidation concerning for pneumonia and underlying mass could not be ruled out. She had been placed on Augmentin by the ED physician. She now has scheduled follow-up with gastroenterology for colonoscopy I suppose to look for colon carcinoma although her CT showed no evidence of mass. Of note, she was seen in the emergency department on October 22, approximately 19 days ago, and had CTA of the chest performed. While there was no pulmonary embolism, there was noted right lower lobe consolidation that was present from a CT in September. I had a lengthy discussion with the patient and her . I do not think that repeat CT imaging is indicated. She has an acceptable pulse ox and she is hemodynamically stable. She was administered morphine through her port for analgesia. I rechecked her labs. She has slightly elevated white count of 11.6, hemoglobin normal at 12.3. Sodium slightly low at 134 with a normal chloride of 104. Her urinalysis shows no evidence of infection or blood. I do not feel that the CT imaging needs to be repeated. 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 He would like to see her in close follow- up. They are to call the office today or tomorrow for an appointment to be seen early next week. I feel she can be discharged safely home with follow-up. She will continue her narcotic analgesics as prescribed by her primary care physician. We also did discuss the possible need for palliative care in the future regarding pain control. Disposition is discharged home in stable condition. Lab Data Labs: Laboratory Results - last 24 hr 11/10/21 11/10/21 11/10/21 13:05 13:05 14:00 WBC 11.6 H RBC 3.77 L Hgb 12.3 Hct 37.6 MCV 99.7 H MCH 32.6 H MCHC 32.7 RDW Std Deviation 69.0 H RDW Coeff of Clement 19.0 H Plt Count 177 MPV 10.6 Immature Gran % (Auto) 3.700 H Neut % (Auto) 76.9 H Lymph % (Auto) 8.7 L [place] % (Auto) 8.8 Eos % (Auto) 1.1 Baso % (Auto) 0.8 Absolute Neuts (auto) 9.0 H Absolute Lymphs (auto) 1.01 Nucleated RBC % 0 Anisocytosis RARE Sodium 134 L Potassium 4.4 Chloride 104 Carbon Dioxide 24.0 Anion Gap 6 BUN 25 H Creatinine 0.70 Estim Creat Clear Calc 33.84 Est GFR (MDRD) Af Amer 106 Est GFR (MDRD) Non-Af 88 BUN/Creatinine Ratio 35.6 H Glucose 77 Calcium 8.6 Total Bilirubin 1.50 H AST 104 H ALT 31 Alkaline Phosphatase 664 H Total Protein 7.1 Albumin 2.3 L Globulin 4.8 H Albumin/Globulin Ratio 0.5 L Urine Color Yellow Urine Clarity Clear Urine pH 6.0 Ur Specific [place] 1.015 Urine Protein 30 H Urine Glucose (UA) Normal Urine Ketones 5 H Urine Occult Blood Negative Urine Nitrite Negative Urine Bilirubin 1 H Urine Urobilinogen 1 H Ur Leukocyte Esterase 25 H Urine RBC 0 SEEN Urine WBC 0-5 SEEN Ur Squamous Epith Cells 10-25 SEEN Urine Bacteria 0 SEEN Hyaline Casts 10-25 SEEN Urine Mucus 0 SEEN Discharge Plan Triage Chief Complaint: Flank Pain ED Provider: Kevin Don Dx/Rx/DC Orders Clinical Impression: Right flank pain, COPD (chronic obstructive pulmonary disease), Liver metastases Instructions: ED Flank Pain, Uncertain Cause, ED Pain, Acute, Uncertain Cause, ED Tumor, Uncertain Cause Prescriptions: No Action albuterol sulfate [Ventolin HFA] 90 mcg/actuation HFA aerosol inhaler 2 puff INHALATION Q6H PRN (Reason: shortness of breath or wheezing) Qty: 18 RF: 3 Aimovig Autoinjector 70 mg/mL auto-injector 70 mg subcut QMONTH RF: 0 sertraline 50 MG tablet 100 mg PO DAILY RF: 0 ropinirole 0.5 MG tablet 0.5 mg PO QHS RF: 0 levothyroxine 100 MCG tablet 75 mcg PO DAILY@0600 RF: 0 pantoprazole 20 MG tablet 40 mg PO DAILY RF: 0 divalproex 500 MG tablet extended release 24 hr 750 mg PO BID RF: 0 multivitamin 1 EACH tablet 1 ea PO DAILY RF: 0 doxepin 3 MG tablet 3 mg PO QHS RF: 0 mirabegron 25 MG tablet extended release 24 hr 50 mg PO DAILY RF: 0 acetaminophen 325 MG tablet 650 mg PO Q6H PRN PRN (Reason: Pain Score 1-10/Temp > 100.7 F) RF: 0 rizatriptan 10 mg tablet 10 mg PO X1 PRN (Reason: Migraine Headache) RF: 0 nabumetone 500 mg Tablet 500 mg PO BID RF: 0 azithromycin [Zithromax] 500 mg tablet 500 mg PO DAILY RF: 0 budesonide-formoterol [Symbicort] 160-4.5 mcg/actuation HFA aerosol inhaler INHALATION RF: 0 oxycodone-acetaminophen [oxycodone-acetaminophen] 1 TABLET tablet 1 tab PO Q6H PRN PRN (Reason: pain) 5 Days Qty: 20 RF: 0 oxycodone-acetaminophen [oxycodone-acetaminophen] 1 TABLET tablet 1 tab PO Q4H PRN (Reason: Pain) 3 Days Qty: 18 RF: 0 amoxicillin-pot clavulanate [amoxicillin-pot clavulanate] 875 MG tablet 875 mg PO Q12H Qty: 20 RF: 0 Breztri Aerosphere 160-9-4.8 mcg/actuation HFA aerosol inhaler 2 inh INHALATION BID Qty: 3 RF: 3 Primary Care Provider: Todd De Leon Referrals: Gerry Diallo MD [STAFF PHYSICIAN] - 3-5 Days if not improving (Call for an appointment tomorrow to be seen early next week regarding your right lower lobe consolidation versus possible mass in your lung.) Todd De Leon, [Primary Care Provider] - As soon as possible Activity Restrictions/Additional Instructions: Continue your pain medications as prescribed by your primary care provider. Call their office to see if you can increase the dosing, or if you need a referral to palliative care. Call Dr. Diallo today/tomorrow for an appointment to be seen early next week regarding the consolidation in your right lower lobe of your lung. Disposition Disposition: Home, Self Care
[2021-11-10 14:15] VITALS: BP 129/70; PULSE 85; RESP 22; O2SAT 92
[2021-11-10 14:16] LABS: Color, Urine Yellow (Yellow); Glucose, Dipstick Normal (Normal); Ketone-Dipstick 5 mg/dl (Negative); Leukocyte Esterase-Dipstick 25 /ul (Negative); Nitrite-Dipstick Negative (Negative); Occult Blood-Urine Negative /ul (Negative); Protein-Dipstick 30 mg/dl (Negative); Specific Gravity, Urine 1.015 (1.002-1.030); Urine Clarity Clear (Clear); Urine Urobilinogen 1 mg/dl (Normal)
[2021-11-10 14:22] LABS: Urine Bilirubin Dipstick 1 mg/dL (Negative)
[2021-11-10 14:23] LABS: Hyaline Cast 10-25 SEEN /lpf (0-5); Squamous Epithelial Cells - UA 10-25 SEEN /hpf (5-10); White Blood Cells 0-5 SEEN /hpf (0-5)
[2021-11-10 14:47] VITALS: BP 129/70; PULSE 85; RESP 22; O2SAT 92
== END 2021-11-10 15:19 | disposition home or self-care (01) ==
PROVIDERS: Emergency Provider Emergency Medicine; PCP Family Medicine; Visit Provider Emergency Medicine
DX: R10.9 Unspecified abdominal pain (principal); C78.7 Secondary malignant neoplasm of liver and intrahepatic bile duct; J44.9 Chronic obstructive pulmonary disease, unspecified; C80.1 Malignant (primary) neoplasm, unspecified; I10 Essential (primary) hypertension; R91.1 Solitary pulmonary nodule; E03.9 Hypothyroidism, unspecified; G25.81 Restless legs syndrome; F32.A Depression, unspecified; F41.9 Anxiety disorder, unspecified; F17.200 Nicotine dependence, unspecified, uncomplicated; Z79.899 Other long term (current) drug therapy; Z86.73 Personal history of transient ischemic attack (TIA), and cerebral infarction without residual deficits
CPT/HCPCS: 36591; 80053; 81001; 85025; 96361; 96374; 96375; 96376; 99283; J7030; A4216; J2405

== ENCOUNTER 2021-11-17 10:53 | Outpatient (CLI) | payer MEDICARE, MEDICAID, SELFPAY | END 2021-11-17 23:59 | disposition home or self-care (01) | LOC: MEDOUTP 10:54 | PROVIDERS: PCP Family Medicine; Referring Provider Nurse Practitioner Acute Care; Visit Provider Nurse Practitioner Acute Care | DX: A41.9 Sepsis, unspecified organism (principal); J44.9 Chronic obstructive pulmonary disease, unspecified | CPT/HCPCS: 36591; 85049; 85610; 85730; A4216 ==

== ENCOUNTER → 2021-11-17 | Outpatient (CLI) | payer MEDICARE, MEDICAID, SELFPAY ==
[2021-11-17 11:26] LABS: Platelet Count 172 K/mm3 (150-450)
[2021-11-17 11:38] LABS: International Normalized Ratio 1.1; Prothrombin Time (Protime)PT. 13.4 SECONDS (11.7-14.9)
[2021-11-17 11:39] LABS: Partial Thromboplast Time 31.8 Seconds (24.1-36.2)
== END | disposition home or self-care (01) ==
LOC: PAVLAB 11-20 04:56
PROVIDERS: PCP Family Medicine; Referring Provider Nurse Practitioner Acute Care; Visit Provider Nurse Practitioner Acute Care
DX: A41.9 Sepsis, unspecified organism (principal)
CPT/HCPCS: 85049; 85610; 85730